=== PATIENT | male | born 1930 | race Caucasian/White ===

== ENCOUNTER 2018-11-05 13:59 | Inpatient (IN) | payer OTHER ==
[2018-11-05] MEDS ORDERED: PIPERACILLIN/TAZOB 4.5 GM 4.5 GM in DEXTROSE 5%-WATER - 100 ML IVPB ONE (14:35)
[2018-11-05] MEDS ORDERED: VANCOMYCIN 1,000 MG in DEXTROSE 5%-WATER - 250 ML IVPB ONE (14:35)
[2018-11-05] MEDS ORDERED: ACETAMINOPHEN 1000 MG/100 ML VIAL (NON FORMULARY) IVPB ONE (14:37)
[2018-11-05] MEDS ORDERED: ACETAMINOPHEN INJECTION 100 ML IVPB ONE (14:43)
[2018-11-05] MEDS ORDERED: PIPERACILLIN/TAZOB 4.5 GM 4.5 GM/100 ML BAG IVPB ONE (14:43)
[2018-11-05] MEDS ORDERED: SODIUM CHLORIDE 1,000 ML IV STA (14:43)
[2018-11-05] MEDS ORDERED: VANCOMYCIN 1 GRAM (PRE-DOCKED) 1,000 MG/250 ML BAG IVPB ONE (14:44)
--- NOTE | 2018-11-05 15:02 | PDOC ---
History of Present Illness - General Chief Complaint: SIRS, Suspected/Possible Stated Complaint: FEVER Time Seen by Provider: 11/05/18 14:33 History Source: Family (son) - History of Present Illness Initial Comments: 11/05/18 16:43 Beny Smalls is a 88yM w PMHx COPD CHF HTN afib on eliquis, trach and PEG tube presenting w AB distension. Per pt, last month, pt was admitted for urosepsis, had hospital complications of MRSA infection around trach. Discharged yesterday. Son noted AB distension yesterday. No fever, SOB, diarrhea /constipation Past History - Past Medical History Allergies/Adverse Reactions: Allergies Allergy/AdvReac Type Severity Reaction Status Date / Time No Known Allergies Allergy Verified 11/05/18 14:35 Home Medications: Ambulatory Orders Acetaminophen [Tylenol] 650 mg GT QID PRN 11/05/18 Albuterol 2.5/Ipratropium 0.5 [Duoneb -] 1 neb IH QID 11/05/18 Amantadine Oral Solution [Symmetrel Oral Solution -] 100 mg GT BID 11/05/18 Amiodarone HCl [Cordarone -] 200 mg GT DAILY 11/05/18 Apixaban [Eliquis -] 5 mg GT BID 11/05/18 Ascorbic Acid 500 mg GT DAILY 11/05/18 Carbidopa/Levodopa 25/250 [Sinemet 25/250 -] 2 each PO TID 11/05/18 Docusate Liquid [Colace Liquid -] 100 mg GT DAILY 11/05/18 Famotidine 20 mg GT DAILY 11/05/18 Furosemide [Lasix -] 40 mg GT DAILY 11/05/18 Homatropine HBr 5% Ophth Soln [Isopto Homatropine] 1 drop OD QID 11/05/18 Latanoprost 0.005% Eye Drops [Xalatan 0.005% Eye Drops -] 1 drop OU HS 11/05/18 Metoprolol Tartrate [Lopressor -] 50 mg GT BID 11/05/18 Multivitamin [Multiple Vitamins] 15 ml GT DAILY 11/05/18 Polyethylene Glycol 3350 [Miralax (For Bowel Prep) -] 17 gm GT DAILY 11/05/18 Tobramycin/Dexamethasone [Tobradex Eye Drops] 1 drop OU BID 11/05/18 Zinc Sulfate [Zinc-220] 220 mg GT DAILY 11/05/18 Cardiac Disorders: Yes (afib) COPD: Yes CHF: Yes GI Disorders: Yes (gerd) HTN: Yes Other medical history: RESP FAILURE TRACH PARKINSON - Suicide/Smoking/Psychosocial Hx Smoking History: Smoker current status UNK Have you smoked in the past 12 months: No Information on smoking cessation initiated: No Hx Alcohol Use: No Drug/Substance Use Hx: No Review of Systems - Review of Systems Able to Perform ROS?: No (pt non verbal) *Physical Exam - Vital Signs Last Vital Signs Temp Pulse Resp BP Pulse Ox 102.3 F H 114 H 30 H 162/89 93 L 11/05/18 14:28 11/05/18 14:28 11/05/18 14:28 11/05/18 14:28 11/05/18 14:28 - Physical Exam General Appearance: Yes: Nourished, Appropriately Dressed, Mild Distress HEENT: positive: EOMI, RICO. negative: Pale Conjunctivae, Scleral Icterus (R), Scleral Icterus (L), Nasal Congestion Respiratory/Chest: positive: Normal Breath Sounds, Rhonchi (RLL), Other (trach - non erythematous). negative: Chest Tender, Lungs Clear (coarse breath sounds bilateral), Respiratory Distress, Accessory Muscle Use, Rales, Stridor, Wheezing Cardiovascular: positive: Regular Rhythm, S1, S2, Tachycardia. negative: Edema , Murmur Gastrointestinal/Abdominal: positive: Normal Bowel Sounds, Soft, Distended. negative: Guarding, Rebound Integumentary: positive: Diaphoresis, Rash (petechial rash franco upper extremities ), Ecchymosis (L hand) Neurologic: positive: Respond to painful stimul. negative: Fully Oriented ED Treatment Course - LABORATORY CBC & Chemistry Diagram: 11/05/18 14:37 11/05/18 14:45 - RADIOLOGY Radiology Studies Ordered: Category Date Time Status ABDOMEN FLAT-LATERAL [RAD] Stat Radiology 11/05/18 14:55 Ordered Medical Decision Making - Medical Decision Making 11/05/18 15:00 AB XR, sepsis labs VBG pH 7.49 CO2 34 Given vanc, zosyn, 1L NS AB XR shows distended bowel loops - mesenteric ischemia vs SBO, no gross pneumoperitoneum noted NG placed w 300mL suctioned CXR showed bibasilar infiltrates w R effusion CT AB show dilated proximal jejunal loops concerning for bowel obstruction. No evidence of mesenteric ischemia EKG shows a fib w RVR HR 120. HR 90-110 after AB given Cr 1.5 - FRANCE, lactate 2.8, BNP 19,000, trop 0.07, ALP 190, WBC 12, INR 2.7 on anticoagulant UA 3+ leuk 3+ blood concerning for possible UTI Beny Smalls is a 88yM w PMHx COPD CHF HTN a fib on eliquis, trach and PEG tube presenting w AB distension. On admission, elevated temp 102, HR 120, RR 30. Placed on vent for hypoxia. CT AB show dilated proximal jejunal loops concerning for bowel obstruction, no evidence of mesenteric ischemia. Pt has distended AB, distended bowel loops on AB XR supporting SBO. No gross pneumoperitoneum noted on XR lowering concern for GI perforation. NG placed w 300mL suctioned. Has sepsis (admission temp 102, tachy 120, WBC 12, lactate 2.8) w UTI (+leuk on UA) and FRANCE (Cr 1.5) Has pneumonia w CXR showing bibasilar infiltrates w R effusion. Given vanc, zosyn, 1L NS EKG showed a fib w RVR HR 120 on admission. HR slowed down to 90-110 after antibiotics given Confirmed DNR Admitted to ICU Dr Whalen for SBO, sepsis w FRANCE and possible UTI, afib w rvr, and pneumonia on vent Consulted Dr Redd surgeon, advised conservative mgmt for SBO no surgery *DC/Admit/Observation/Transfer Diagnosis at time of Disposition: FRANCE (acute kidney injury), Atrial fibrillation with RVR Sepsis Qualifiers: Sepsis type: sepsis due to unspecified organism Sepsis acute organ dysfunction status: with acute organ dysfunction Severe sepsis acute organ dysfunction type : acute renal failure Acute renal failure type: unspecified Severe sepsis shock status: without septic shock Qualified Code(s): A41.9 - Sepsis, unspecified organism UTI (urinary tract infection) Qualifiers: Urinary tract infection type: site unspecified Hematuria presence: without hematuria Qualified Code(s): N39.0 - Urinary tract infection, site not specified Pneumonia Qualifiers: Pneumonia type: due to unspecified organism Laterality: right Lung location: lower lobe of lung Qualified Code(s): J18.1 - Lobar pneumonia, unspecified organism - Discharge Dispostion Condition at time of disposition: Good - Referrals Referrals: Juanjose Guadarrama MD [Primary Care Provider] - - Patient Instructions - Post Discharge Activity
[2018-11-05 15:03] LABS: BASO % 0.1 % (0-2.0); EOS % 0.1 % (0-4.5); HEMATOCRIT 30.9 % (35.4-49); LYMPH % 2.1 % (8-40); MCHC 32.3 g/dl (32.0-35.9); MEAN CELL VOLUME 89.8 fl (80-96); MEAN PLT VOLUME 8.1 fl (7.5-11.1); MONO % 5.6 % (3.8-10.2); NEUT % 92.1 % (42.8-82.8); PLATELET COUNT 384 K/MM3 (134-434); RBC 3.44 M/mm3 (4.00-5.60)
[2018-11-05 15:04] LABS: VENOUS PC02 34.4 mmHg (38-52); VENOUS PH 7.49 (7.31-7.41); VENOUS PO2 54.9 mmHg (28-48)
[2018-11-05 15:13] LABS: INR 2.71 (0.83-1.09); PROTHROMBIN TIME (PATIENT) 32.3 SEC (9.7-13.0)
[2018-11-05 15:16] LABS: ACTIVATED PTT 36.7 SECONDS (25.2-36.5)
[2018-11-05 15:30] LABS: ALBUMIN 2.4 g/dl (3.4-5.0); BILIRUBIN,TOTAL 1.7 mg/dL (0.2-1); BLOOD UREA NITROGEN 47.1 mg/dL (7-18); CREATININE 1.5 mg/dL (0.55-1.3); POTASSIUM 4.5 mmol/L (3.5-5.1); TOT PROT 7.1 g/dl (6.4-8.2)
[2018-11-05 15:34] LABS: EPI CELLS 1.5 /HPF (0-5/HPF); HYALINE CASTS 75 /lpf (0-8); URINE APPEARANCE TURBID; URINE BILIRUBIN 1+ (NEGATIVE); URINE COLOR DK YELLOW; URINE GLUCOSE (UA) NEGATIVE (NEGATIVE); URINE KETONE TRACE (NEGATIVE); URINE LEUK ESTERASE 3+ (NEGATIVE); URINE NITRITE NEGATIVE (NEGATIVE); URINE PROTEIN 1+ (NEGATIVE); URINE WBC 161 /hpf (0-5)
[2018-11-05 15:43] LABS: URINE BACTERIA 7 /hpf (NEGATIVE); URINE RBC 103.1 /hpf (0-4); YEAST PRESENT (NEGATIVE)
[2018-11-05 15:46] LABS: ANISOCYTOSIS 2+; MACROCYTOSIS 0; OVALOCYTE 1+; PLATELET ESTIMATE NORMAL; TEAR DROP CELLS 1+
[2018-11-05] MEDS ORDERED: AZITHROMYCIN IVPB 500 MG in DEXTROSE 5%-WATER - 250 ML IVPB ONE (16:40)
[2018-11-05] MEDS ORDERED: AZITHROMYCIN IVPB 500 MG/250 ML BAG IVPB ONE (18:21)
--- NOTE | 2018-11-05 18:41 | PDOC ---
Documentation entered by Juan Jose Don SCRIBE, acting as scribe for Mary Anne Roberts MD. Mary Anne Roberts MD: This documentation has been prepared by the Arian rainey Elijah, SCRIBE, under my direction and personally reviewed by me in its entirety. I confirm that the documentation accurately reflects all work, treatment, procedures, and medical decision making performed by me. Attending Attestation - Resident Resident Name: Conrado Pennington - ED Attending Attestation I have performed the following: I have examined & evaluated the patient, The case was reviewed & discussed with the resident, I agree w/resident's findings & plan, Exceptions are as noted - HPI HPI: 11/05/18 15:31 Patient is an 88 year old male with a significant past medical history of trach/ PEG, AFIB on AC, COPD, CHF, and HTN who presents to the ED with a fever and abdominal distention. As per son at bedside, patient was admitted a month ago for urosepsis to LTAC, [facility] where he was trached and PEGed. He was discharged to rehab but readmitted to [facility], where he was found to have a MRSA infection around his trach site. Patient was discharged yesterday from this admission in improved condition but today, he was noted by son to have increased bloating around the abdomen prompting the visit to the ED. History from patient is limited due to clinical condition Allergies: LAUREN PCP: Dr. Guadarrama - Physicial Exam PE: 11/05/18 15:37 GENERAL: Awake, alert, in mild respiratory acute distress with audible gurgling which resolved after NGT placement EYES: EOMI, sclera anicteric, conjunctiva clear ENT: Oropharynx clear without exudates. Moist mucosa.NGT in place with yellow fluid in tubing NECK: trach in place with no erythema or discharge LUNGS: +crackles/rales to L lung base, +mildly increased WOB HEART: Regular rate and rhythm, normal S1 and S2, no murmurs, rubs or gallops ABDOMEN: No focal ttp, +distended, diminished bowel sounds. No guarding, no rebound. No masses : rectal temp 102.3, brown stool in vault, no bleeding EXTREMITIES: Normal range of motion, mild trace symmetric edema. No clubbing or cyanosis. No cords, erythema, or tenderness NEUROLOGICAL: Cranial nerves II through XII intact SKIN: Warm, Dry, normal turgor, no rashes or lesions noted - Medical Decision Making 11/05/18 15:23 88yo M with MMP presents to the ED with respitory distress, fever, abd distention Clincial picture concerning for SBO causing aspiration, as such NGT was place on arrival Vitals also c/f sepsis, thus sepsis w/u initiated revealing of lung infiltrate and UTI Pt was covered with Vanc/Zosyn on arrival for empiric coverage Later azithro was added for atypical coverage in light of L sided infiltrate CTAP pending 11/05/18 18:23 CTAP was obtained which revealed SBO Case discussed with Dr. Redd who will see pt ICU resident currently evaluating pt Hospitalist has been paged for admission 11/05/18 18:48 ICU team requests ABG for dispo to ICU vs tele Pt admitted to ICU Heart Score/ECG Review #1 11/05/18 18:22 Twelve-lead EKG was performed and reviewed by me. Atrial fibrillation with rapid 21. Normal axis. Very wavy baseline but no obvious ST elevations
--- NOTE | 2018-11-05 19:05 | CONSULT ---
Consultation: REQUESTING PROVIDER: Dr. Garcia CONSULT REQUEST: We have been asked to medically evaluate this patient for pneumonia and small bowel obstruction. HISTORY OF PRESENT ILLNESS: Beny Smalls is an 88 year old male with a past medical history Parkinson' s disease, COPD, CHF, HTN, afib on Eliquis, remote history of prostate CA, respiratory failure with tracheostomy and PEG tube who presented to the ED when son noted a distended abdomen. Patient was recently in [facility] for sepsis secondary to UTI and was recently hospitalized at [facility] for complications related to MRSA. Patient was noted by the son to have abdominal distension yesterday. Of note, patient is able to converse normally, follow commands, and is able ambulate with assistance at home. Has been on Sinemet for many years and started on amantadine within the last several months. In the ED, the patient had an abdominal x-ray which showed distended bowel loops concerning for SBO. An NG tube was placed and 300cc of gastric fluid was removed with no noted blood. Chest x-ray was performed and showed a possible RLL PNA. CT abdomen showing dilated proximal jejunal bowel loops concerning for obstruction with no evidence of mesenteric ischemia. ED Course notable for: 1) Tmax of 102.3, WBC 12.0, lactic acid 2.8-->2.3 2) Abdominal x-ray, chest x-ray, abdominal CT as above 3) Given Vancomycin, Zosyn, NS 1L, Ofirmev REVIEW OF SYSTEMS: Unable to assess due to patient's lethargic condition PHYSICAL EXAMINATION Vital Signs - 24 hr 11/05/18 11/05/18 11/05/18 14:28 16:27 16:34 Temperature 102.3 F H Pulse Rate 114 H Pulse Rate [ 121 H Apical] Respiratory 30 H 29 H 24 H Rate Blood Pressure 162/89 Blood Pressure 145/92 [Right Arm] O2 Sat by Pulse 93 L 100 Oximetry (%) 11/05/18 17:57 Temperature 98 F Pulse Rate Pulse Rate [ 112 H Apical] Respiratory 27 H Rate Blood Pressure Blood Pressure 118/79 [Right Arm] O2 Sat by Pulse 100 Oximetry (%) GENERAL: Lethargic, opens eyes, does not track. Unresponsive to voice or basic commands. EYES: Pupils equal, round 2mm, sluggish to light, sclera anicteric, conjunctiva clear. No lid lag. NECK: Trach in place LUNGS: Coarse breath sounds bilaterally, mechanical breath sounds. No wheezing or crackles noted. HEART: Irregular rate and rhythm, normal S1 and S2 with no noted murmurs ABDOMEN: Distended, tympanic abdomen, soft, no guarding, no rigidity. EXTREMITIES: 2+ pulses, warm, well-perfused. No calf tenderness. No peripheral edema. NEUROLOGICAL: No blink to threat response, spontaneous movements bilaterally upper and lower extremities, striatal toes bilaterally. SKIN: Cool extremities, diffuse bruising noted. Multiple sacral ulcer in various stages 1-3 noted. Laboratory Results - last 24 hr 11/05/18 11/05/18 11/05/18 14:20 14:37 14:40 WBC 12.0 H RBC 3.44 L Hgb 10.0 L Hct 30.9 L MCV 89.8 MCH 29.0 MCHC 32.3 RDW 23.0 H Plt Count 384 MPV 8.1 Absolute Neuts (auto) 11.1 H Neutrophils % 92.1 H Neutrophils % (Manual) 86.6 H Band Neutrophils % 5.1 Lymphocytes % 2.1 L Lymphocytes % (Manual) 3.1 L Monocytes % 5.6 Monocytes % (Manual) 3 L Eosinophils % 0.1 Eosinophils % (Manual) 0.0 Basophils % 0.1 Basophils % (Manual) 0.0 Myelocytes % (Man) 0 Promyelocytes % (Man) 0 Blast Cells % (Manual) 0 Nucleated RBC % 0 Metamyelocytes 0 Hypochromia 0 Platelet Estimate Normal Platelet Comment Present Polychromasia 2+ Poikilocytosis 1+ Anisocytosis 2+ Microcytosis 1+ Macrocytosis 0 Spherocytes 1+ Tear Drop Cells 1+ Ovalocytes 1+ Acanthocytes (Spur) 1+ PT with INR INR PTT (Actin FS) VBG pH 7.49 H POC VBG pCO2 34.4 L POC VBG pO2 54.9 H VBG HCO3 26.1 VBG O2 Sat (Stacey) 86.9 H VBG Base Excess 3.6 H Sodium Potassium Chloride Carbon Dioxide Anion Gap BUN Creatinine Est GFR (CKD-EPI)AfAm Est GFR (CKD-EPI)NonAf Random Glucose Lactic Acid 2.8 H* Calcium Total Bilirubin AST ALT Alkaline Phosphatase Troponin I B-Natriuretic Peptide Total Protein Albumin Urine Color Urine Appearance Urine pH Ur Specific Mccarr Urine Protein Urine Glucose (UA) Urine Ketones Urine Blood Urine Nitrite Urine Bilirubin Urine Urobilinogen Ur Leukocyte Esterase Urine WBC (Auto) Urine RBC (Auto) Urine Casts (Auto) U Pathogenic Cast Auto U Epithel Cells (Auto) Urine Bacteria (Auto) Urine Yeast (Auto) 11/05/18 11/05/18 11/05/18 14:45 14:45 14:45 WBC RBC Hgb Hct MCV MCH MCHC RDW Plt Count MPV Absolute Neuts (auto) Neutrophils % Neutrophils % (Manual) Band Neutrophils % Lymphocytes % Lymphocytes % (Manual) Monocytes % Monocytes % (Manual) Eosinophils % Eosinophils % (Manual) Basophils % Basophils % (Manual) Myelocytes % (Man) Promyelocytes % (Man) Blast Cells % (Manual) Nucleated RBC % Metamyelocytes Hypochromia Platelet Estimate Platelet Comment Polychromasia Poikilocytosis Anisocytosis Microcytosis Macrocytosis Spherocytes Tear Drop Cells Ovalocytes Acanthocytes (Spur) PT with INR 32.30 H INR 2.71 H PTT (Actin FS) 36.7 H VBG pH POC VBG pCO2 POC VBG pO2 VBG HCO3 VBG O2 Sat (Stacey) VBG Base Excess Sodium 141 Potassium 4.5 Chloride 102 Carbon Dioxide 26 Anion Gap 13 BUN 47.1 H Creatinine 1.5 H Est GFR (CKD-EPI)AfAm 47.49 Est GFR (CKD-EPI)NonAf 40.98 Random Glucose 129 H Lactic Acid Calcium 9.0 Total Bilirubin 1.7 H AST 13 L ALT 14 Alkaline Phosphatase 191 H Troponin I 0.07 H B-Natriuretic Peptide 51212.0 H Total Protein 7.1 Albumin 2.4 L Urine Color Urine Appearance Urine pH Ur Specific Mccarr Urine Protein Urine Glucose (UA) Urine Ketones Urine Blood Urine Nitrite Urine Bilirubin Urine Urobilinogen Ur Leukocyte Esterase Urine WBC (Auto) Urine RBC (Auto) Urine Casts (Auto) U Pathogenic Cast Auto U Epithel Cells (Auto) Urine Bacteria (Auto) Urine Yeast (Auto) 11/05/18 15:00 WBC RBC Hgb Hct MCV MCH MCHC RDW Plt Count MPV Absolute Neuts (auto) Neutrophils % Neutrophils % (Manual) Band Neutrophils % Lymphocytes % Lymphocytes % (Manual) Monocytes % Monocytes % (Manual) Eosinophils % Eosinophils % (Manual) Basophils % Basophils % (Manual) Myelocytes % (Man) Promyelocytes % (Man) Blast Cells % (Manual) Nucleated RBC % Metamyelocytes Hypochromia Platelet Estimate Platelet Comment Polychromasia Poikilocytosis Anisocytosis Microcytosis Macrocytosis Spherocytes Tear Drop Cells Ovalocytes Acanthocytes (Spur) PT with INR INR PTT (Actin FS) VBG pH POC VBG pCO2 POC VBG pO2 VBG HCO3 VBG O2 Sat (Stacey) VBG Base Excess Sodium Potassium Chloride Carbon Dioxide Anion Gap BUN Creatinine Est GFR (CKD-EPI)AfAm Est GFR (CKD-EPI)NonAf Random Glucose Lactic Acid Calcium Total Bilirubin AST ALT Alkaline Phosphatase Troponin I B-Natriuretic Peptide Total Protein Albumin Urine Color Dk yellow Urine Appearance Turbid Urine pH 5.0 Ur Specific Mccarr 1.018 Urine Protein 1+ H Urine Glucose (UA) Negative Urine Ketones Trace H Urine Blood 3+ H Urine Nitrite Negative Urine Bilirubin 1+ H Urine Urobilinogen 1.0 Ur Leukocyte Esterase 3+ H Urine WBC (Auto) 161 Urine RBC (Auto) 103.1 Urine Casts (Auto) 75 U Pathogenic Cast Auto Granular cast U Epithel Cells (Auto) 1.5 Urine Bacteria (Auto) 7 Urine Yeast (Auto) Present ASSESSMENT/PLAN: Beny Smalls is an 88 year old male with a past medical history Parkinson' s disease, COPD, CHF, HTN, afib on Eliquis, respiratory failure with tracheostomy and PEG tube admitted for an SBO and possible PNA. Small bowel obstruction Sepsis RLL PNA UTI Parkinson's disease COPD CHF Afib HTN s/p Tracheostomy s/p PEG NEUROLOGIC - lethargic - likely any acute changes due to SBO, UTI, PNA causing toxic encephalopathy - hold home Sinemet - hold home amantadine - watch closely for dopamine withdrawal symptoms, hyperperexia, NMS like symptoms CARDIOLOGY - multiple runs of afib with RVR on monitor in ED - hold home Eliquis, restart when patient able to take oral meds - hold home amiodarone - hold metoprolol - hold home Lasix - Lovenox 110mg bid renally dosed through pharmacy - BNP elevated 16836, unclear of history - troponin 0.07, trend to peak, likely Type II CO in setting of sepsis - echo ordered - continuous cardiac monitoring, watch for RVR - I+Os RESPIRATORY - vent settings Rate 12, TV 450, O2 50, PEEP 5 - currently satting well - continue to monitor O2 sats - ABG showing respiratory alkalosis - repeat ABG in the morning - continue Duoneb RENAL - CRE 1.5, unclear of baseline - continue hydration in setting of likely infection - monitor renal function and renal output GASTROINTESTINAL - Abd x-ray and CT indicative of SBO - Dr. Redd consulted, recommends no surgery, conservative management - confirm with Dr. Redd about giving medications through G-tube - continue NG tube drainage - aspiration precautions INFECTIOUS DISEASE - CXR shows possible RLL - given Zosyn, Vancomycin, Azithromycin - continue vancomycin due to history of MRSA - continue Zosyn in setting of possible PNA - UA showing 3+ LE, WBC 161, bacteria 7, Zosyn to cover for UTI bacterial infection - lactic acid downtrending 2.8-->2.3-->1.9 - blood and urine cultures pending - continue to monitor WBC count, fevers - ID consulted OPTHALMOLOGIC - continue home eye drops HEMATOLOGY - WBC elevated from likely infection and SBO - continue to trend MUSCULOSKELETAL - apply silver sulfadiazine to wounds F/E/N - NS at 75cc/hr - continue to monitor electrolytes and replete as necessary - NPO PROPHYLAXIS - Lovenox 110mg bid renally dosed through pharmacy CODE - DNR as per son, awaiting paperwork DISPO - will monitor the patient in the ICU Thank you for this consultative opportunity. VARGHESE ESQUEDA DO - PGY-1 INTERNAL MEDICINE Visit type - Emergency Visit Emergency Visit: Yes ED Registration Date: 11/05/18 Care time: The patient presented to the Emergency Department on the above date and was hospitalized for further evaluation of their emergent condition. - New Patient This patient is new to me today: Yes Date on this admission: 11/06/18 - Critical Care Critical Care patient: Yes Total Critical Care Time (in minutes): 35 Critical Care Statement: The care of this patient involved high complexity decision making to prevent further life threatening deterioration of the patient 's condition and/or to evaluate & treat vital organ system(s) failure or risk of failure.
[2018-11-05 20:26] LABS: ARTERIAL BLD GAS O2 SATURATION 99.3 % (95-98); ARTERIAL BLOOD GAS BASE EXCESS 4.5 meq/l (-2-2); ARTERIAL BLOOD GAS PCO2 34.7 mmHg (35-45); ARTERIAL BLOOD GAS pH 7.51 (7.35-7.45); CARBOXYHEMOGLOBIN 1.6 % (0-2)
[2018-11-05 20:43] LABS: ARTERIAL BLOOD GAS PO2 141 mmHg (80-100)
--- NOTE | 2018-11-05 21:22 | HP ---
CHIEF COMPLAINT: abdominal distention PCP: HISTORY OF PRESENT ILLNESS: 88 y/o male with PMH of Parkinson's, COPD, CHF, HTN, afib (on eliquis) respiratory failure with trach and PEG tube, remote history of prostate ca around 15-20 years ago, presented to the ED with worsening abdominal distention since yesterday. as per patients son and the ED staff, patient was recently at [facility] for sepsis 2/2 UTI (was there starting the end of August where he was intubated and placed in their ICU for 3 weeks where the trach and peg were subsequently placed) and he was discharged to [place] halfway. About 11 days ago again urinary issues took place, in addition to what seemed to be an infectious process around his trach and he was sent sent to [facility] and then was discharged yesterday to [facility]. 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 His mental status was at baseline yesterday- he was following commands, trying to speak very alert and awake. The son as well as his daughter and the [facility] home staf noticed that his fathers abdomen was looking more distended today unclear when patient's last bowel movement was, the son said that about 6 days ago he had some vomiting had monte and they did not feed him for a day or so, otherwise, he is usnure in regards to his bowel movements. ER course was notable for: (1)initial vitals: t 102.3, Hr 103, patient was in afib with RVR on arrival (2)wbc 12, Cr 1.5, lactic acid 2.8-->2.3, Tbilli 1.7, Alk Phos 191, BNP 18.981 UA 3+ blood, 3+ leuk esterase, wbc 161 trop 0.07 (3)CXR showing bibasilar infiltrates w R effusion, CT ab/pelvis- dilated proximal jejunal loops probable bowel obstruction w/ mild to moderate gasric distention (4) given vanc/zosyn/azithro NS Recent Travel: denies PAST MEDICAL HISTORY: see above PAST SURGICAL HISTORY: Social History: Smoking:denies Alcohol:denies Drugs: denies Family History:N/A Allergies No Known Allergies Allergy (Verified 11/05/18 14:35) HOME MEDICATIONS: Home Medications Medication Instructions Recorded Acetaminophen [Tylenol] 650 mg GT QID PRN 11/05/18 Albuterol 2.5/Ipratropium 0.5 1 neb IH QID 11/05/18 [Duoneb -] Amantadine Oral Solution 100 mg GT BID 11/05/18 [Symmetrel Oral Solution -] Amiodarone HCl [Cordarone -] 200 mg GT DAILY 11/05/18 Apixaban [Eliquis -] 5 mg GT BID 11/05/18 Ascorbic Acid 500 mg GT DAILY 11/05/18 Carbidopa/Levodopa 25/250 [Sinemet 2 each PO TID 11/05/18 25/250 -] Docusate Liquid [Colace Liquid -] 100 mg GT DAILY 11/05/18 Famotidine 20 mg GT DAILY 11/05/18 Furosemide [Lasix -] 40 mg GT DAILY 11/05/18 Homatropine HBr 5% Ophth Soln 1 drop OD QID 11/05/18 [Isopto Homatropine] Latanoprost 0.005% Eye Drops 1 drop OU HS 11/05/18 [Xalatan 0.005% Eye Drops -] Metoprolol Tartrate [Lopressor -] 50 mg GT BID 11/05/18 Multivitamin [Multiple Vitamins] 15 ml GT DAILY 11/05/18 Polyethylene Glycol 3350 [Miralax 17 gm GT DAILY 11/05/18 (For Bowel Prep) -] Tobramycin/Dexamethasone [Tobradex 1 drop OU BID 11/05/18 Eye Drops] Zinc Sulfate [Zinc-220] 220 mg GT DAILY 11/05/18 REVIEW OF SYSTEMS(UNABLE TO OBTAIN as patient is trach and vented) CONSTITUTIONAL: Absent: fever, chills, diaphoresis, generalized weakness, malaise, loss of appetite, weight change HEENT: Absent: rhinorrhea, nasal congestion, throat pain, throat swelling, difficulty swallowing, mouth swelling, ear pain, eye pain, visual changes CARDIOVASCULAR: Absent: chest pain, syncope, palpitations, irregular heart rate, lightheadedness , peripheral edema RESPIRATORY: Absent: cough, shortness of breath, dyspnea with exertion, orthopnea, wheezing, stridor, hemoptysis GASTROINTESTINAL: Absent: abdominal pain, abdominal distension, nausea, vomiting, diarrhea, constipation, melena, hematochezia GENITOURINARY: Absent: dysuria, frequency, urgency, hesitancy, hematuria, flank pain, genital pain MUSCULOSKELETAL: Absent: myalgia, arthralgia, joint swelling, back pain, neck pain SKIN: Absent: rash, itching, pallor HEMATOLOGIC/IMMUNOLOGIC: Absent: easy bleeding, easy bruising, lymphadenopathy, frequent infections ENDOCRINE: Absent: unexplained weight gain, unexplained weight loss, heat intolerance, cold intolerance NEUROLOGIC: Absent: headache, focal weakness or paresthesias, dizziness, unsteady gait, seizure, mental status changes, bladder or bowel incontinence PSYCHIATRIC: Absent: anxiety, depression, suicidal or homicidal ideation, hallucinations. PHYSICAL EXAMINATION Vital Signs - 24 hr 11/05/18 11/05/18 11/05/18 14:28 16:27 16:34 Temperature 102.3 F H Pulse Rate 114 H Pulse Rate [ 121 H Apical] Respiratory 30 H 29 H 24 H Rate Blood Pressure 162/89 Blood Pressure 145/92 [Right Arm] O2 Sat by Pulse 93 L 100 Oximetry (%) 11/05/18 11/05/18 17:57 18:55 Temperature 98 F Pulse Rate Pulse Rate [ 112 H 103 H Apical] Respiratory 27 H 26 H Rate Blood Pressure Blood Pressure 118/79 111/67 [Right Arm] O2 Sat by Pulse 100 100 Oximetry (%) GENERAL: lethargic but arousable, opens eyes- does not follow commands or respond to name; slightly diaphoretic EYES: PEERLA; EOMI; no scleral icterus NECK: no JVD; no lmyphadenopathy; trach in place with slight surrounding erythema LUNGS:coarse breath sounds B/L; no wheezes/rales HEART: irregularly irregular, tachycardic S1 and S2 without murmur, rub or gallop. ABDOMEN: Soft, distended, hypoactive bowel sounds, no wincing upon palpation. EXTREMITIES: warm; well-perfused no clubbing/cyanosis or edema NEUROLOGICAL: lethargic yet arousable . SKIN: Warm, dry, normal turgor, no rashes or lesions noted, normal capillary refill. Laboratory Results - last 24 hr 11/05/18 11/05/18 11/05/18 14:20 14:37 14:40 WBC 12.0 H RBC 3.44 L Hgb 10.0 L Hct 30.9 L MCV 89.8 MCH 29.0 MCHC 32.3 RDW 23.0 H Plt Count 384 MPV 8.1 Absolute Neuts (auto) 11.1 H Neutrophils % 92.1 H Neutrophils % (Manual) 86.6 H Band Neutrophils % 5.1 Lymphocytes % 2.1 L Lymphocytes % (Manual) 3.1 L Monocytes % 5.6 Monocytes % (Manual) 3 L Eosinophils % 0.1 Eosinophils % (Manual) 0.0 Basophils % 0.1 Basophils % (Manual) 0.0 Myelocytes % (Man) 0 Promyelocytes % (Man) 0 Blast Cells % (Manual) 0 Nucleated RBC % 0 Metamyelocytes 0 Hypochromia 0 Platelet Estimate Normal Platelet Comment Present Polychromasia 2+ Poikilocytosis 1+ Anisocytosis 2+ Microcytosis 1+ Macrocytosis 0 Spherocytes 1+ Tear Drop Cells 1+ Ovalocytes 1+ Acanthocytes (Spur) 1+ PT with INR INR PTT (Actin FS) Anticoagulation Therapy Puncture Site ABG pH ABG pCO2 at Pt Temp ABG pO2 at Pt Temp ABG HCO3 ABG O2 Sat (Measured) ABG O2 Content ABG Base Excess Santiago Test VBG pH 7.49 H POC VBG pCO2 34.4 L POC VBG pO2 54.9 H VBG HCO3 26.1 VBG O2 Sat (Stacey) 86.9 H VBG Base Excess 3.6 H Carboxyhemoglobin Methemoglobin O2 Delivery Device Oxygen Flow Rate Vent Mode Vent Rate Mechanical Rate PEEP Pressure Support Vent Sodium Potassium Chloride Carbon Dioxide Anion Gap BUN Creatinine Est GFR (CKD-EPI)AfAm Est GFR (CKD-EPI)NonAf Random Glucose Lactic Acid 2.8 H* Calcium Total Bilirubin AST ALT Alkaline Phosphatase Troponin I B-Natriuretic Peptide Total Protein Albumin Urine Color Urine Appearance Urine pH Ur Specific [place] Urine Protein Urine Glucose (UA) Urine Ketones Urine Blood Urine Nitrite Urine Bilirubin Urine Urobilinogen Ur Leukocyte Esterase Urine WBC (Auto) Urine RBC (Auto) Urine Casts (Auto) U Pathogenic Cast Auto U Epithel Cells (Auto) Urine Bacteria (Auto) Urine Yeast (Auto) 11/05/18 11/05/18 11/05/18 14:45 14:45 14:45 WBC RBC Hgb Hct MCV MCH MCHC RDW Plt Count MPV Absolute Neuts (auto) Neutrophils % Neutrophils % (Manual) Band Neutrophils % Lymphocytes % Lymphocytes % (Manual) Monocytes % Monocytes % (Manual) Eosinophils % Eosinophils % (Manual) Basophils % Basophils % (Manual) Myelocytes % (Man) Promyelocytes % (Man) Blast Cells % (Manual) Nucleated RBC % Metamyelocytes Hypochromia Platelet Estimate Platelet Comment Polychromasia Poikilocytosis Anisocytosis Microcytosis Macrocytosis Spherocytes Tear Drop Cells Ovalocytes Acanthocytes (Spur) PT with INR 32.30 H INR 2.71 H PTT (Actin FS) 36.7 H Anticoagulation Therapy Puncture Site ABG pH ABG pCO2 at Pt Temp ABG pO2 at Pt Temp ABG HCO3 ABG O2 Sat (Measured) ABG O2 Content ABG Base Excess Santiago Test VBG pH POC VBG pCO2 POC VBG pO2 VBG HCO3 VBG O2 Sat (Stacey) VBG Base Excess Carboxyhemoglobin Methemoglobin O2 Delivery Device Oxygen Flow Rate Vent Mode Vent Rate Mechanical Rate PEEP Pressure Support Vent Sodium 141 Potassium 4.5 Chloride 102 Carbon Dioxide 26 Anion Gap 13 BUN 47.1 H Creatinine 1.5 H Est GFR (CKD-EPI)AfAm 47.49 Est GFR (CKD-EPI)NonAf 40.98 Random Glucose 129 H Lactic Acid Calcium 9.0 Total Bilirubin 1.7 H AST 13 L ALT 14 Alkaline Phosphatase 191 H Troponin I 0.07 H B-Natriuretic Peptide 84371.0 H Total Protein 7.1 Albumin 2.4 L Urine Color Urine Appearance Urine pH Ur Specific [place] Urine Protein Urine Glucose (UA) Urine Ketones Urine Blood Urine Nitrite Urine Bilirubin Urine Urobilinogen Ur Leukocyte Esterase Urine WBC (Auto) Urine RBC (Auto) Urine Casts (Auto) U Pathogenic Cast Auto U Epithel Cells (Auto) Urine Bacteria (Auto) Urine Yeast (Auto) 11/05/18 11/05/18 11/05/18 15:00 18:11 20:05 WBC RBC Hgb Hct MCV MCH MCHC RDW Plt Count MPV Absolute Neuts (auto) Neutrophils % Neutrophils % (Manual) Band Neutrophils % Lymphocytes % Lymphocytes % (Manual) Monocytes % Monocytes % (Manual) Eosinophils % Eosinophils % (Manual) Basophils % Basophils % (Manual) Myelocytes % (Man) Promyelocytes % (Man) Blast Cells % (Manual) Nucleated RBC % Metamyelocytes Hypochromia Platelet Estimate Platelet Comment Polychromasia Poikilocytosis Anisocytosis Microcytosis Macrocytosis Spherocytes Tear Drop Cells Ovalocytes Acanthocytes (Spur) PT with INR INR PTT (Actin FS) Anticoagulation Therapy No Result Required. Puncture Site Right radial ABG pH 7.51 H ABG pCO2 at Pt Temp 34.7 L ABG pO2 at Pt Temp 141 H ABG HCO3 27.2 H ABG O2 Sat (Measured) 99.3 H ABG O2 Content No Result Required. ABG Base Excess 4.5 H Santiago Test No Result Required. VBG pH POC VBG pCO2 POC VBG pO2 VBG HCO3 VBG O2 Sat (Stacey) VBG Base Excess Carboxyhemoglobin 1.6 Methemoglobin < 1.0 O2 Delivery Device Mech vent Oxygen Flow Rate 50% Vent Mode Alc Vent Rate 12 Mechanical Rate Yes PEEP 5.0 Pressure Support Vent 450 Sodium Potassium Chloride Carbon Dioxide Anion Gap BUN Creatinine Est GFR (CKD-EPI)AfAm Est GFR (CKD-EPI)NonAf Random Glucose Lactic Acid 2.3 H* Calcium Total Bilirubin AST ALT Alkaline Phosphatase Troponin I B-Natriuretic Peptide Total Protein Albumin Urine Color Dk yellow Urine Appearance Turbid Urine pH 5.0 Ur Specific [place] 1.018 Urine Protein 1+ H Urine Glucose (UA) Negative Urine Ketones Trace H Urine Blood 3+ H Urine Nitrite Negative Urine Bilirubin 1+ H Urine Urobilinogen 1.0 Ur Leukocyte Esterase 3+ H Urine WBC (Auto) 161 Urine RBC (Auto) 103.1 Urine Casts (Auto) 75 U Pathogenic Cast Auto Granular cast U Epithel Cells (Auto) 1.5 Urine Bacteria (Auto) 7 Urine Yeast (Auto) Present ASSESSMENT/PLAN: 88 y/o male with PMH of Parkinson's, COPD, CHF, HTN, afib (on eliquis) respiratory failure with trach and PEG tube presented to the ED with worsening abdominal distention since yesterday found to have an SBO on CT scan in addition to bibasilar infiltrates . #SBO patient found to have SBO on CT scan -dr. ordoñez called; no surgery to be had will manage conservatively -NGT placed with immediate drainage of 300 of bilious material -NPO -IV fluids NS @75 -LA 2.8 down to 2.3 -received vanc/zosyn/azithro -will trend lactic acid # UTI unclear if patient is having symtoms currently -will c/w abx (vanc/zosyn) until urine cx are back -ID consult #Afib c/w eliquis; amiodarone,; monitor hemodynamics #HTN c/w lopressor -monitor hemodynamics #CHF patients BNP was 18.891 on arrival unknown what patients baseline is; will obtain records c/w lasix echo [place] patients Cr is 1.5 on arrival;unknown what patients baseline is -likely elevated 2/2 infection/hypovolemia -will hydrate and monitor # COPD will c/w duoenbs -patient curretly on vent -monitor respiratory status; maintain sp02 88-92% #Parkinsons c/w sinemet F/E/N ns @75 monitor electrolytes npo dvt ppx; eliquis DNR Problem List - Problem (1) [place] (acute kidney injury) Code(s): N17.9 - ACUTE KIDNEY FAILURE, UNSPECIFIED (2) Atrial fibrillation with RVR Code(s): I48.91 - UNSPECIFIED ATRIAL FIBRILLATION (3) Pneumonia Code(s): J18.9 - PNEUMONIA, UNSPECIFIED ORGANISM Qualifiers: Pneumonia type: due to unspecified organism Laterality: right Lung location: lower lobe of lung Qualified Code(s): J18.1 - Lobar pneumonia, unspecified organism (4) Sepsis Code(s): A41.9 - SEPSIS, UNSPECIFIED ORGANISM Qualifiers: Sepsis type: sepsis due to unspecified organism Sepsis acute organ dysfunction status: with acute organ dysfunction Severe sepsis acute organ dysfunction type: acute renal failure Acute renal failure type: unspecified Severe sepsis shock status: without septic shock Qualified Code(s): A41.9 - Sepsis, unspecified organism; R65.20 - Severe sepsis without septic shock; N17.9 - Acute kidney failure, unspecified (5) UTI (urinary tract infection) Code(s): N39.0 - URINARY TRACT INFECTION, SITE NOT SPECIFIED Qualifiers: Urinary tract infection type: site unspecified Hematuria presence: without hematuria Qualified Code(s): N39.0 - Urinary tract infection, site not specified Visit type - Emergency Visit Emergency Visit: Yes ED Registration Date: 11/05/18 Care time: The patient presented to the Emergency Department on the above date and was hospitalized for further evaluation of their emergent condition. - New Patient This patient is new to me today: Yes Date on this admission: 11/06/18 - Critical Care Critical Care patient: Yes Total Critical Care Time (in minutes): 35 Critical Care Statement: The care of this patient involved high complexity decision making to prevent further life threatening deterioration of the patient 's condition and/or to evaluate & treat vital organ system(s) failure or risk of failure. ATTENDING PHYSICIAN STATEMENT I saw and evaluated the patient. I reviewed the resident's note and discussed the case with the resident. I agree with the resident's findings and plan as documented. SUBJECTIVE: OBJECTIVE: ASSESSMENT AND PLAN:
[2018-11-05] MEDS: SODIUM CHLORIDE 1,000 ML IV SCH (21:43)
[2018-11-05] MEDS ORDERED: PIPERACILLIN/TAZOB 3.375 GM 3.375 GM in DEXTROSE 5%-WATER - 50 ML IVPB SCH (22:15)
[2018-11-05] MEDS ORDERED: PIPERACILLIN/TAZOB 3.375 GM 3.375 GM/50 ML BAG IVPB ONE (23:17)
[2018-11-05] MEDS ORDERED: CARBIDOPA/LEVODOPA 25/250 TABLET (FP) ONE (23:17)
[2018-11-05] MEDS: PIPERACILLIN/TAZOB 3.375 GM 3.375 GM in DEXTROSE 5%-WATER - 50 ML IVPB SCH (23:20)
[2018-11-05] MEDS: CARBIDOPA/LEVODOPA 25/250 TABLET (FP) GT SCH (23:20)
[2018-11-06] MEDS ORDERED: HEPARIN NA (PORCINE) 5,000 UNITS/ML 1ML VIAL SQ SCH (02:00)
--- NOTE | 2018-11-06 04:38 | PN ---
Teaching Attending Note Name of Resident: Ana María Bee ATTENDING PHYSICIAN STATEMENT I saw and evaluated the patient. I reviewed the resident's note and discussed the case with the resident. I agree with the resident's findings and plan as documented. Seen and examined; please refer to resident note for further historical information. Gianna, this is a 88 y/o male with a PMH Parkinson's disease, COPD, CHF, HTN, afib on Eliquis, remote history of prostate CA, respiratory failure with tracheostomy and PEG tube presenting with abdominal distention found to have a likely SBO and to be in afib with RVR; there is question of cystitis vs. colonization. Surgery has been consulted by the ER and recommended conservative management with NGT. Had prolonged hospitalization due to septic shock at [place] resulting in trach/PEG and was DCd to [place] and presented back to [facility] with tracheitis and waas then sent to [facility]. He now presents to [facility]. I personally called [facility] for records and spoke to ER provider who was unable to find notes for him in their system; we will try with medical records. He cannot provide any history. He was taken to the ICU for further workup and monitoring. VS, labs, imaging reviewed NAD, AA and tracking, resting in bed on trach to vent RRR s1/2 no mgr NC AT EOMI PERRLA Slightly distended, mild tympany, reduced BS but present NGT in Not agitated, responds to pain EKG reviewed; telemetry ordered Echo pending CXR reviewed ASSESSMENT AND PLAN: Patient presents with abdominal distention as well as ? cystitis; he is trach/ PEG dependent and was recently at [facility] for tracheitis Possible SBO Afib with RVR on eliquis Elevated bilirubin/Alk phos with ?dilation of CBD Acute cystitis vs. colonization w/ chronic galarza S/P Trach, PEG Hx Parkinsons R-pleural effusion Elevated BNP Recent tracheitis Hx COPD Hx CHF (LVEF unknown, records pending) Hx Prostate Cancer Admitting to ICU with surgical consult; NPO. Convert eliquis to lovenox and amio to IV (will discuss dosing with pharmacy). Broad spectrum coverage with abx and ID consut; obtaining prior micro from OSH. Consider active cystitis vs. colonization given galarza. Followup cultures, consider additional reactivity with leukocytosis. Vent support per ICU; appreciate their input. May need MRCP with potentially obstructive pattern on LFTs so will FU RUQ US and GI consultation. Appreciate subspecialist input in the ongoing management of this patient. Given his elevated BNP, it is definitively elevated but he is not having reduced volumes, etc. with vent. Will check echo and obtain old records, monitor fluid status and resp status carefully.
[2018-11-06] MEDS ORDERED: PIPERACILLIN/TAZOBACTAM 3.375 GM VIAL IVPB ONE ×3 (06:22→22:17)
[2018-11-06] MEDS ORDERED: DEXTROSE 5%-WATER - 50 ML IVPB ONE ×3 (06:23→22:17)
[2018-11-06] MEDS: PIPERACILLIN/TAZOB 3.375 GM 3.375 GM in DEXTROSE 5%-WATER - 50 ML IVPB SCH ×3 (06:28→22:19)
[2018-11-06 07:12] LABS: BASO % 0.4 % (0-2.0); EOS % 0.4 % (0-4.5); HEMATOCRIT 27.2 % (35.4-49); HEMOGLOBIN 8.9 GM/dL (11.7-16.9); MCH 29.9 pg (25.7-33.7); MCHC 32.8 g/dl (32.0-35.9); MEAN CELL VOLUME 91.1 fl (80-96); NEUT % 81.2 % (42.8-82.8); RBC 2.98 M/mm3 (4.00-5.60); RDW 23.3 % (11.9-15.9); WHITE BLOOD COUNT 9.5 K/mm3 (4.0-10.0)
[2018-11-06 07:22] LABS: ALK PHOS 144 U/L (45-117); ANION GAP 8 MMOL/L (8-16); BILIRUBIN,TOTAL 1.6 mg/dL (0.2-1); BLOOD UREA NITROGEN 47.3 mg/dL (7-18); CALCIUM 8.2 mg/dL (8.5-10.1); CHLORIDE 101 mmol/L (98-107); CO2 32 mmol/L (21-32); CREATININE 1.3 mg/dL (0.55-1.3); GLUCOSE,RANDOM 93 mg/dL (74-106); MAGNESIUM 2.5 mg/dL (1.8-2.4); PHOSPHOROUS 4.1 mg/dL (2.5-4.9); POTASSIUM 3.8 mmol/L (3.5-5.1); SGOT/AST 13 U/L (15-37); SODIUM 142 mmol/L (136-145); TOT PROT 5.8 g/dl (6.4-8.2)
[2018-11-06 07:36] LABS: INR 2.22 (0.83-1.09); PROTHROMBIN TIME (PATIENT) 26.4 SEC (9.7-13.0)
[2018-11-06 07:49] LABS: SGPT/ALT < 6 U/L (13-61)
[2018-11-06] MEDS: ALBUTEROL SO4 2.5/IPRATROPIUM 0.5 INH SOL 3 ML VIAL.NEB. NEB SCH ×4 (08:00→22:05)
[2018-11-06 08:10] LABS: ACTIVATED PTT 37.4 SECONDS (25.2-36.5)
[2018-11-06 08:16] LABS: PLATELET COUNT 269 K/MM3 (134-434)
--- NOTE | 2018-11-06 08:53 | CON.GI ---
Consult Consult Specialty:: Gastroenterology - History of Present Illness History of Present Illness: Patient seen in the ICU Patient is on ventilator, medical records reviewed. this is a 88 y/o male with a PMH Parkinson's disease, COPD, CHF, HTN, afib on Eliquis, remote history of prostate CA, respiratory failure with tracheostomy and PEG tube presenting with abdominal distention found to have a likely SBO and to be in afib with RVR; there is question of cystitis vs. colonization. Surgery has been consulted by the ER and recommended conservative management with NGT. Had prolonged hospitalization due to septic shock at [place] resulting in trach/PEG and was DCd to [place] and presented back to [facility] with tracheitis and waas then sent to [facility]. He now presents to [facility]. I personally called [facility] for records and spoke to ER provider who was unable to find notes for him in their system; we will try with medical records. He cannot provide any history. He was taken to the ICU for further workup and monitoring. I was asked to see the patient because of mildly elevated liver enzymes and mildly dilated by CT. The GB has no sludge and stones. NGT was inserted with negligible return. - Alcohol/Substance Use Hx Alcohol Use: No - Smoking History Smoking history: Smoker current status UNK Have you smoked in the past 12 months: No Home Medications - Allergies Allergies/Adverse Reactions: Allergies Allergy/AdvReac Type Severity Reaction Status Date / Time No Known Allergies Allergy Verified 11/05/18 14:35 - Home Medications Home Medications: Ambulatory Orders Acetaminophen [Tylenol] 650 mg GT QID PRN 11/05/18 Albuterol 2.5/Ipratropium 0.5 [Duoneb -] 1 neb IH QID 11/05/18 Amantadine Oral Solution [Symmetrel Oral Solution -] 100 mg GT BID 11/05/18 Amiodarone HCl [Cordarone -] 200 mg GT DAILY 11/05/18 Apixaban [Eliquis -] 5 mg GT BID 11/05/18 Ascorbic Acid 500 mg GT DAILY 11/05/18 Carbidopa/Levodopa 25/250 [Sinemet 25/250 -] 2 each PO TID 11/05/18 Docusate Liquid [Colace Liquid -] 100 mg GT DAILY 11/05/18 Famotidine 20 mg GT DAILY 11/05/18 Furosemide [Lasix -] 40 mg GT DAILY 11/05/18 Homatropine HBr 5% Ophth Soln [Isopto Homatropine] 1 drop OD QID 11/05/18 Latanoprost 0.005% Eye Drops [Xalatan 0.005% Eye Drops -] 1 drop OU HS 11/05/18 Metoprolol Tartrate [Lopressor -] 50 mg GT BID 11/05/18 Multivitamin [Multiple Vitamins] 15 ml GT DAILY 11/05/18 Polyethylene Glycol 3350 [Miralax (For Bowel Prep) -] 17 gm GT DAILY 11/05/18 Tobramycin/Dexamethasone [Tobradex Eye Drops] 1 drop OU BID 11/05/18 Zinc Sulfate [Zinc-220] 220 mg GT DAILY 11/05/18 Physical Exam-GI Vital Signs: Vital Signs Temperature 98.6 F 11/06/18 06:00 Pulse Rate 105 H 11/06/18 06:00 Respiratory Rate 24 H 11/06/18 06:25 Blood Pressure 116/82 11/06/18 06:00 O2 Sat by Pulse Oximetry (%) 100 11/06/18 04:27 Constitutional: Yes: Other HENT: Yes: Normocephalic Neck: Yes: Trachea Midline Cardiovascular: Yes: Regular Rate and Rhythm Respiratory: Yes: CTA Bilaterally ...Palpate: Yes: Soft. No: Firm/Rigid, Guarding, Hepatomegaly, Mass, Pulsatile Mass, Splenomegaly, Tenderness Labs: CBC, BMP 11/06/18 05:30 11/06/18 05:30 INR, PTT INR 2.22 (0.83-1.09) H 11/06/18 05:30 Problem List - Problems (1) Ileus Code(s): K56.7 - ILEUS, UNSPECIFIED (2) Dilated cbd, acquired Assessment/Plan: associated with mild elevation of LFTS R> will await US if CBD dilated will need MRCP to r/o CBD stone serial LFTS Code(s): K83.8 - OTHER SPECIFIED DISEASES OF BILIARY TRACT
--- NOTE | 2018-11-06 09:56 | PN ---
Progress Note (short form) - Note Progress Note: ID consult dictated imp/reccd 88 yo man pmh recent urosepsis JENNY Rosas- trach/ped, then rehab, then [facility] for MRSA trach infection admitted 11/04 to SNF noted to have abdominal distention and sent to ED 11/[address] scan abd/pelvis- ?SBO with question of Left lower lob infiltrate galarza in place he is alert no abdominal pain on exam fever SBO possible LLL infiltrate unstageable sacral/buttock ulcers- wound care evaluation chronic respiratory failure history of mrsa f/u cultures vanco/zosyn urinary antigens for legionella f/u abd us results gi/surgery f/u apparently galarza not changed in ED- unclear of significance of UA/urine culture Problem List - Problems (1) Fever Code(s): R50.9 - FEVER, UNSPECIFIED (2) SBO (small bowel obstruction) Code(s): K56.609 - UNSP INTESTNL OBST, UNSP TO PARTIAL VERSUS COMPLETE OBST (3) Pneumonia Code(s): J18.9 - PNEUMONIA, UNSPECIFIED ORGANISM Qualifiers: Pneumonia type: due to unspecified organism Laterality: right Lung location: lower lobe of lung Qualified Code(s): J18.1 - Lobar pneumonia, unspecified organism (4) Chronic respiratory failure Code(s): J96.10 - CHRONIC RESPIRATORY FAILURE, UNSP W HYPOXIA OR HYPERCAPNIA (5) MRSA (methicillin resistant Staphylococcus aureus) colonization Code(s): Z22.322 - CARRIER OR SUSPECTED CARRIER OF METHICILLIN RESIS STAPH
[2018-11-06] MEDS ORDERED: SILVER SULFADIAZINE 1% TOP CREAM 400 GM JAR TP SCH (10:00)
[2018-11-06] MEDS: TOBRA 0.3%/DEXAMETH 0.1% OPHTHALMIC SUSP 2.5 ML BTL OU SCH ×2 (10:00→22:20)
[2018-11-06] MEDS ORDERED: AMIODARONE HCL 200 MG TABLET (FP) GT SCH (10:00)
[2018-11-06] MEDS: [UNRECOGNIZED DRUG - OTHER] OD SCH ×4 (10:00→22:20)
[2018-11-06] MEDS ORDERED: APIXABAN 5 MG TABLET PO SCH (10:00)
[2018-11-06] MEDS ORDERED: ENOXAPARIN NA (PORCINE) 100 MG/1 ML DISP.SYRIN SQ SCH (10:00)
[2018-11-06] MEDS ORDERED: AMIODARONE HCL 150 MG/3 ML VIAL IVPUSH SCH (10:00)
--- NOTE | 2018-11-06 10:39 | CONSULT ---
Consult - text type - Consultation Consultation Note: PULMONARY/CRITICAL CARE CONSULT: HPI: Briefly, an 88 y/o M w/Parkinson's, COPD, CHG, HTN, AF and chronic vent dependant respiratory failure following a prolonged hospitalization at [facility]. He is s/p trach and PEG, he is dependant on mechanical ventilation. He presented to the ED with abd distention and fever. He has history of UTIs and MRSA in the sputum. A CT A/P was done concerning for SBO. He also had elevated Lactate and LFTs. Surgery and GI were consulted. NGT was placed, he was started on empiric abx, and admitted to the ICU. Current Medications Albuterol/Ipratropium (Duoneb -) 1 amp NEB RQID [facility] Last Admin: 11/06/18 08:00 Dose: Not Given Amantadine HCl (Symmetrel Oral Solution -) 100 mg GT BID [facility] Amiodarone HCl (Cordarone -) 200 mg GT DAILY [facility] Amiodarone HCl (Cordarone Injection -) 100 mg IVPUSH DAILY [facility] Carbidopa/Levodopa (Sinemet 25/250 -) 2 each GT TID [facility] Last Admin: 11/05/18 23:20 Dose: 2 each Chlorhexidine Gluconate (Hibiclens For Decolonization -) 1 applic TP HS [facility] Enoxaparin Sodium (Lovenox -) 110 mg SQ BID [facility] Homatropine HBr (Isopto Homatropine 5% -) 1 drop OD QID [facility] Sodium Chloride (Normal Saline -) 1,000 mls @ 75 mls/hr IV ASDIR [facility] Last Admin: 11/05/18 21:43 Dose: 75 mls/hr Piperacillin Sod/Tazobactam (Sod 3.375 gm/ Dextrose) 50 mls @ 100 mls/hr IVPB Q8H-IV [facility]; Protocol Piperacillin Sod/Tazobactam (Sod 3.375 gm/ Dextrose) 50 mls @ 100 mls/hr IVPB Q8H [facility]; Protocol Stop: 11/06/18 14:59 Last Admin: 11/06/18 06:28 Dose: 100 mls/hr Latanoprost (Xalatan 0.005% Eye Drops -) 1 drop OU HS [facility] Mupirocin (Bactroban Ointment (For Decolonization) -) 1 applic NS BID [facility] Stop: 11/10/18 21:59 Silver Sulfadiazine (Silvadene -) 1 applic TP BID [facility] Tobramycin/Dexamethasone (Tobradex Ophthalmic Suspension -) 1 drop OU BID [facility] Vital Signs Temp 98.6 F 11/06/18 06:00 Pulse 102 H 11/06/18 08:00 Resp 22 H 11/06/18 08:00 BP 114/70 11/06/18 08:00 Pulse Ox 100 11/06/18 08:00 Intake & Output 11/05/18 11/06/18 11/06/18 18:59 06:59 18:59 Intake Total 196 Output Total 300 Balance -104 Weight 113.398 kg 36.696 kg Intake: IV 196 Normal Saline - 1,000 ml 196 @ 1000 mls/hr IV ASDIR [facility] Rx#:[id number] Output: Urine 300 Gal[place] 300 Other: Voiding Method Indwelling Catheter Indwelling Catheter Bowel Movement No Height 5 ft 8 in Body Mass Index (BMI) 38.0 Weight Measurement Method Built in [facility] Weight Measurement Method Estimated by Staff EXAM: gen: NAD, vented neuro: awake, alert, follows commands HEENT: NGT in place, trach, dry MM Lungs: clear Heart: irregular Ext: no edema Skin: unstageable sacral and L buttocks decub ulcer CBC, BMP 11/06/18 05:30 11/06/18 05:30 ASSESSMENT: -Chronic vent dependant respiratory failure -COPD -CHF -AF -SBO -Sepsis - likely GI source or UTI PLAN: -NGT to Int-LWS -NPO -Gentle IVF -Check abdominal u/s - if CBD dilation - MRCP -Cultures including sputum - also, change galarza and resend UA and Cx -Empiric abx per ID -Rate control -Anticoagulation for AF - will need to switch to UFH if procedures are planned -Continue Vent and nebs -GI PPx - protonix Thank you for this interesting consult Critically Ill - Critical Care time 45min Tim Burrows 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
[2018-11-06] MEDS ORDERED: PT OWN MED DRAWER 7, Y5N ONE ×3 (10:59→22:17)
[2018-11-06] MEDS ORDERED: AMIODARONE IN DEXTROSE,ISO-OSM 150 MG/100 ML BAG IVPB ONE (11:00)
--- NOTE | 2018-11-06 11:12 | CONS ---
DATE OF CONSULTATION: REQUESTING PHYSICIAN: Hospitalist Service. KNAPSACK SPRAYER: Fazal Cisneros M.D. DATE OF DICTATION: 11/06/2018 HISTORY OF PRESENT ILLNESS: This is an 88-year-old man recently hospitalized. The history is from the chart [facility] in [place] where he had urosepsis. He ultimately needed a tracheostomy and a PEG tube placement. He then went apparently to rehabilitation. From there he was readmitted to [facility] where he had a MRSA tracheostomy infection. He was just sent on the November 04 to [facility] and he was noted have abdominal distention and on November 05 he was sent to the ER. In the ER he was noted to have a fever on admission of 102.3. He had a CAT scan of his abdomen and pelvis done, which showed a possible small bowel obstruction with question of a left lower lobe infiltrate. He has a chronic Salguero in place as well. Patient is awake. He is alert, but he is unable to give any history. He did not have any pain on any exam. PAST MEDICAL HISTORY: His past medical history is notable for heart failure and pneumonia. He has an extra-pyramidal movement disorder, atrial fibrillation, GERD, chronic respiratory failure, chronic obstructive pulmonary disease, hypertension , Parkinson disease. PAST SURGICAL HISTORY: Surgical history is notable for tracheostomy and PEG, as well he has had a right hip replacement. SOCIAL HISTORY: Per the H&P there is no history of any cigarette, alcohol or substance use. FAMILY HISTORY: Not available. ALLERGIES: He has no known drug allergies. MEDICATIONS: At the time of transfer includes: 1. Amantadine. 2. Amiodarone. 3. Eliquis. 4. Famotidine. 5. Lasix. 6. Ipratropium. 7. Albuterol nebulizer solution. 8. Metoprolol. 9. Sinemet. 10. TobraDex eye drops. 11. Xalatan eye drops. 12. Isopto eye drops. 13. MiraLax. 14. Zinc sulfate. 15. Multivitamins. 16. Ascorbic acid. 17. Colace. 18. Santyl. 19. Silvadene. 20. Nystatin. 21. Bacitracin. REVIEW OF SYSTEMS: Notable for the fact that he has apparently noted abdominal distention. It is unclear when he last had a bowel movement. PHYSICAL EXAMINATION: General: On physical exam, he is awake and alert. Vitals: His current temperature is 98.6. T max was 102.3, pulse is 102; blood pressure 114/70, respiratory rate is 22. He is saturating 100%, FIO2 is 50%. HEENT: He is normocephalic. His eyes are anicteric. He has a tracheostomy. Lungs: His lungs have diminished breath sounds at both bases. Heart: His heart is tachycardic. Abdomen: His abdomen is soft; GT tube site is in place. He has no rebound, or guarding. Extremities: He has got edema. He has a Salguero in place that apparently is from the longterm. White count on admission was 12, repeat was 9.5, hemoglobin 8.9, platelets are 269. INR is 2.2. BUN is 47, creatinine is 1.3. LFTs are notable for a total bilirubin of 1.6, ALT is 6, alkaline phosphatase 144 and urinalysis has 3+ leukocytes with 161 white cells. CAT scan findings are as stated. Question of a possible small bowel obstruction. There is a question of a left lower lobe infiltrate. He has got a right hip replacement. He has no evidence of diverticulitis or appendicitis. Chest x-ray was done with question of bibasilar infiltrates with his atelectasis with a possible right pleural effusion. SUMMARY: In summary, this is an 88-year-old man with recent hospitalization, methicillin-resistant Staphylococcus aureus colonization, admitted with fever, abdominal distention, possible pneumonia. He was given vancomycin, Zosyn and Zithromax in the emergency room. I would suggest at this time that we continue the vancomycin and Zosyn. Would follow up the cultures that have been ordered. Sputum, urine and blood have been ordered. I would order a urine Legionella antigen as well. Apparently there is a question of a mild CBD duct dilatation and given his abnormal LFTs, ultrasound has been ordered as well. I would suggest at this time that we continue the vancomycin and Zosyn, check the urinary antigens, GI Surgery to follow up. Follow up ultrasound results. Apparently the Salguero was not changed in the ER, so it is unclear what the significance of the UA and urine culture are at this time. Further recommendations to follow. FAZAL CISNEROS M.D. [id number] MTDD
[2018-11-06] MEDS: PANTOPRAZOLE SODIUM 40 MG VIAL IVPUSH SCH (11:26)
[2018-11-06] MEDS: MUPIROCIN 2% TOPICAL OINTMENT FOR DECOLONIZATION NS SCH ×2 (11:28→22:10)
--- NOTE | 2018-11-06 12:26 | PN ---
Progress Note (short form) - Note Progress Note: alert Current Medications Generic Name Dose Route Start Last Admin Trade Name Negritoq PRN Reason Stop Dose Admin Albuterol/Ipratropium 1 amp 11/06/18 08:00 11/06/18 08:00 Duoneb - NEB Not Given RQID [facility] Amantadine HCl 100 mg 11/06/18 10:00 Symmetrel Oral Solution - GT BID [facility] Amiodarone HCl 200 mg 11/06/18 10:00 Cordarone - GT DAILY [facility] Amiodarone HCl 100 mg 11/06/18 10:00 Cordarone Injection - IVPUSH DAILY [facility] Carbidopa/Levodopa 2 each 11/05/18 22:45 11/05/18 23:20 Sinemet 25/250 - GT 2 each TID [facility] Administration Chlorhexidine Gluconate 1 applic 11/05/18 22:00 Hibiclens For Decolonization - TP HS [facility] Enoxaparin Sodium 110 mg 11/06/18 10:00 Lovenox - SQ BID [facility] Homatropine HBr 1 drop 11/06/18 10:00 Isopto Homatropine 5% - OD QID [facility] Sodium Chloride 1,000 mls @ 75 mls/hr 11/05/18 21:15 11/05/18 21:43 Normal Saline - IV 75 mls/hr ASDIR [facility] Administration Piperacillin Sod/Tazobactam 50 mls @ 100 mls/hr 11/05/18 22:15 Sod 3.375 gm/ Dextrose IVPB Q8H-IV [facility] Protocol Piperacillin Sod/Tazobactam 50 mls @ 100 mls/hr 11/05/18 22:30 11/06/18 06:28 Sod 3.375 gm/ Dextrose IVPB 11/06/18 14:59 100 mls/hr Q8H [facility] Administration Protocol Latanoprost 1 drop 11/06/18 22:00 Xalatan 0.005% Eye Drops - OU HS [facility] Mupirocin 1 applic 11/05/18 22:00 11/06/18 11:28 Bactroban Ointment (For Decolonization) - NS 11/10/18 21:59 1 tab.chew BID [facility] Administration Pantoprazole Sodium 40 mg 11/06/18 10:45 11/06/18 11:26 Protonix Iv IVPUSH 40 mg DAILY [facility] Administration Silver Sulfadiazine 1 applic 11/06/18 10:00 Silvadene - TP BID [facility] Tobramycin/Dexamethasone 1 drop 11/06/18 10:00 Tobradex Ophthalmic Suspension - OU BID [facility] Last Vital Signs Temp Pulse Resp BP Pulse Ox 98 F 102 H 24 H 156/87 100 11/06/18 10:00 11/06/18 10:00 11/06/18 10:00 11/06/18 10:00 11/06/18 08:00 Intake & Output 11/03/18 11/04/18 11/05/18 11/06/18 23:59 23:59 23:59 23:59 Intake Total 196 Output Total 300 Balance -104 Weight 250 lb 80 lb 14.4 oz General NAD, alert CV S1 S2 irregular and tachy Lungs CTA B/L anteriorly Abdomen soft slightly distended. NT hypoactive BS Extremities no pedal edema CBCD WBC 9.5 K/mm3 (4.0-10.0) 11/06/18 05:30 RBC 2.98 M/mm3 (4.00-5.60) L 11/06/18 05:30 Hgb 8.9 GM/dL (11.7-16.9) L 11/06/18 05:30 Hct 27.2 % (35.4-49) L 11/06/18 05:30 MCV 91.1 fl (80-96) 11/06/18 05:30 MCHC 32.8 g/dl (32.0-35.9) 11/06/18 05:30 RDW 23.3 % (11.9-15.9) H 11/06/18 05:30 Plt Count 269 K/MM3 (134-434) D 11/06/18 05:30 MPV 8.0 fl (7.5-11.1) 11/06/18 05:30 CMP Sodium 142 mmol/L (136-145) 11/06/18 05:30 Potassium 3.8 mmol/L (3.5-5.1) 11/06/18 05:30 Chloride 101 mmol/L (98-107) 11/06/18 05:30 Carbon Dioxide 32 mmol/L (21-32) 11/06/18 05:30 Anion Gap 8 MMOL/L (8-16) 11/06/18 05:30 BUN 47.3 mg/dL (7-18) H 11/06/18 05:30 Creatinine 1.3 mg/dL (0.55-1.3) 11/06/18 05:30 Random Glucose 93 mg/dL (74-106) 11/06/18 05:30 Calcium 8.2 mg/dL (8.5-10.1) L 11/06/18 05:30 Total Bilirubin 1.6 mg/dL (0.2-1) H 11/06/18 05:30 AST 13 U/L (15-37) L 11/06/18 05:30 ALT < 6 U/L (13-61) L 11/06/18 05:30 Alkaline Phosphatase 144 U/L (45-117) H 11/06/18 05:30 Total Protein 5.8 g/dl (6.4-8.2) L 11/06/18 05:30 Albumin 2.0 g/dl (3.4-5.0) L 11/06/18 05:30 CARDIAC ENZYMES Troponin I 0.05 ng/ml (0.00-0.05) 11/06/18 05:30 Microbiology 11/05/18 15:00 Urine - Urine - Catheterized Urine Culture - Preliminary A/P 88yo M with PMH parkinson, COPD, HTN, Afib, chronic respiratory failure s/p trach and PEG presented to the Er with fevers and abdominal distention and foudn to be septic due to PNA and SBO with dilated CBD as well 1. Sepsis due to PNA- Tm 102.3 with tachycardia. LA normalized. started on zosyn. cont IVF. ID on board. f/u Cx 2. SBO-some hypoactive BS. NPO, NGT to intermittent suction. pain control. surgery on board 3. Dilated CBD- seen on imaging. elevated bilirubin. MRCP ordered. GI onboard 4. Afib- rate not controlled. was on amio at home. will start metoprolol standing and prn to control HR. if remains uncontrolled can start amio ggt. start hep ggt until can take po 5. FR[place]- deu to sepsis and dehydration. hydrate, treat underlying infection. avoid nephrotoxic agents 6. unstageable buttock ulcer- visualized by RN not me 7. Tropinemia- due to demand from sepsis and tachycardia. peaked at 0.07 no need for ischemia eval here 8. Parkinon-hold oral agents at this time. re-start once able to take po 9. HTN- hold oral agents. re-start when able 10. chronic respiratory failure- s/p trach. vent management per ICU team 11. dsyphagia s/p PEG- hold TF at this time 12. DVT ppx- hep ggt 13. DNR 14. MICU monitoring Visit type - Emergency Visit Emergency Visit: Yes ED Registration Date: 11/05/18 Care time: The patient presented to the Emergency Department on the above date and was hospitalized for further evaluation of their emergent condition. - New Patient This patient is new to me today: Yes Date on this admission: 11/06/18 - Critical Care Critical Care patient: Yes Total Critical Care Time (in minutes): 40 Critical Care Statement: The care of this patient involved high complexity decision making to prevent further life threatening deterioration of the patient 's condition and/or to evaluate & treat vital organ system(s) failure or risk of failure. - Discharge Referral Referred to [facility] Med P.C.: No
[2018-11-06] MEDS ORDERED: HEPARIN NA (PORCINE) 5,000 UNITS/ML 1ML VIAL IVPUSH PRN ×2 (12:39)
[2018-11-06] MEDS ORDERED: METOPROLOL TARTRATE 5 MG/5 ML VIAL IVPUSH PRN ×2 (12:42→13:04)
[2018-11-06] MEDS ORDERED: VANCOMYCIN HCL 1,250 MG in DEXTROSE 5%-WATER - 250 ML IVPB SCH (14:00)
[2018-11-06] MEDS: HEPARIN INFUSION - 25,000 UNITS/500 ML INFUS.BAG IVPB SCH (14:33)
[2018-11-06] MEDS: METOPROLOL TARTRATE 5 MG/5 ML VIAL IVPUSH SCH ×2 (14:33→22:10)
[2018-11-06] MEDS: VANCOMYCIN HCL 1,250 MG in DEXTROSE 5%-WATER - 250 ML IVPB SCH (15:05)
[2018-11-06] MEDS: COLLAGENASE CLOSTRIDIUM HIST. 30 GRAMS TUBE TP SCH (15:06)
--- NOTE | 2018-11-06 16:03 | EKG ---
Test Reason : Blood Pressure : / mmHG Vent. Rate : 121 BPM Atrial Rate : 107 BPM P-R Int : 000 ms QRS Dur : 104 ms QT Int : 382 ms P-R-T Axes : 000 -21 256 degrees QTc Int : 542 ms ATRIAL FIBRILLATION WITH RAPID VENTRICULAR RESPONSE LOW VOLTAGE QRS MARKED ST ABNORMALITY, POSSIBLE INFERIOR SUBENDOCARDIAL INJURY ABNORMAL ECG NO PREVIOUS ECGS AVAILABLE CLINICAL CORRELATION IS RECOMMENDED Confirmed by GA COUGHLIN, YUSEF ([id number]) on 11/06/2018 4:03:11 PM Referred By: Confirmed By:YUSEF KOROMA MD
--- NOTE | 2018-11-06 17:21 | CONSULT ---
- Consultation REQUESTING PROVIDER: ER MD CONSULT REQUEST: We have been asked to surgically evaluate this patient for possible sbo PCP:Kimmie Cunningham HISTORY OF PRESENT ILLNESS: TUSHAR who is an 88 y/o male recently txed and released from 2 local hospitals where he was txed for urosepsis and underwent a trach and PEG and now presents for increasing abdominal distention a/t his son; he has # comorbid conditions. He has a recent h/o MRSA infection. PMHx: pulmonary disease/Parkinsons disease/CHF/ PSHx: PEG/trach Home Medications Medication Instructions Recorded Acetaminophen [Tylenol] 650 mg GT QID PRN 11/05/18 Albuterol 2.5/Ipratropium 0.5 1 neb IH QID 11/05/18 [Duoneb -] Amantadine Oral Solution 100 mg GT BID 11/05/18 [Symmetrel Oral Solution -] Amiodarone HCl [Cordarone -] 200 mg GT DAILY 11/05/18 Apixaban [Eliquis -] 5 mg GT BID 11/05/18 Ascorbic Acid 500 mg GT DAILY 11/05/18 Carbidopa/Levodopa 25/250 [Sinemet 2 each PO TID 11/05/18 25/250 -] Docusate Liquid [Colace Liquid -] 100 mg GT DAILY 11/05/18 Famotidine 20 mg GT DAILY 11/05/18 Furosemide [Lasix -] 40 mg GT DAILY 11/05/18 Homatropine HBr 5% Ophth Soln 1 drop OD QID 11/05/18 [Isopto Homatropine] Latanoprost 0.005% Eye Drops 1 drop OU HS 11/05/18 [Xalatan 0.005% Eye Drops -] Metoprolol Tartrate [Lopressor -] 50 mg GT BID 11/05/18 Multivitamin [Multiple Vitamins] 15 ml GT DAILY 11/05/18 Polyethylene Glycol 3350 [Miralax 17 gm GT DAILY 11/05/18 (For Bowel Prep) -] Tobramycin/Dexamethasone [Tobradex 1 drop OU BID 11/05/18 Eye Drops] Zinc Sulfate [Zinc-220] 220 mg GT DAILY 11/05/18 Allergies Allergy/AdvReac Type Severity Reaction Status Date / Time No Known Allergies Allergy Verified 11/05/18 14:35 REVIEW OF SYSTEMS:not obtainable from patient PHYSICAL EXAM: GENERAL: Awake, alert, and not fully oriented, in no acute distress; trached and vented in the ICU. HEAD: Normal with no signs of trauma. EYES: sclera anicteric, conjunctiva clear. NECK: Normal ROM, supple without lymphadenopathy, JVD, or masses.trach in place ABDOMEN: Soft, nontender, slightly distended, normoactive bowel sounds, no guarding, no rebound, no masses. No organomegaly. PEG in place MUSCULOSKELETAL: Normal ROM at all joints. No bony deformities or tenderness. No CVA tenderness. UPPER EXTREMITIES: 2+ pulses, warm, well-perfused. No cyanosis. Cap refill <2 seconds. No peripheral edema. LOWER EXTREMITIES: 2+ pulses, warm, well-perfused. No calf tenderness. No peripheral edema. NEUROLOGICAL: gait not observed. PSYCH: Cooperative. Good eye contact. Appropriate mood and affect. SKIN: Warm, dry, normal turgor, rashes and lesions are noted. Vital Signs Temperature 99 F 11/06/18 14:00 Pulse Rate 106 H 11/06/18 16:00 Respiratory Rate 20 11/06/18 16:36 Blood Pressure 133/77 11/06/18 16:00 O2 Sat by Pulse Oximetry (%) 100 11/06/18 08:00 Lab Results WBC 9.5 K/mm3 (4.0-10.0) 11/06/18 05:30 RBC 2.98 M/mm3 (4.00-5.60) L 11/06/18 05:30 Hgb 8.9 GM/dL (11.7-16.9) L 11/06/18 05:30 Hct 27.2 % (35.4-49) L 11/06/18 05:30 MCV 91.1 fl (80-96) 11/06/18 05:30 MCHC 32.8 g/dl (32.0-35.9) 11/06/18 05:30 RDW 23.3 % (11.9-15.9) H 11/06/18 05:30 Plt Count 269 K/MM3 (134-434) D 11/06/18 05:30 Sodium 142 mmol/L (136-145) 11/06/18 05:30 Potassium 3.8 mmol/L (3.5-5.1) 11/06/18 05:30 Chloride 101 mmol/L (98-107) 11/06/18 05:30 Carbon Dioxide 32 mmol/L (21-32) 11/06/18 05:30 Anion Gap 8 MMOL/L (8-16) 11/06/18 05:30 BUN 47.3 mg/dL (7-18) H 11/06/18 05:30 Creatinine 1.3 mg/dL (0.55-1.3) 11/06/18 05:30 Random Glucose 93 mg/dL (74-106) 11/06/18 05:30 Calcium 8.2 mg/dL (8.5-10.1) L 11/06/18 05:30 INR 2.22 (0.83-1.09) H 11/06/18 05:30 CT a/p reviewed IMP: ? sbo PLAN Suggest NPO/IVF/NGT; I personally placed a [place] sump and connected it tp low continuous suction where it should remain; serial abdominal exams and abdominal x rays should be done.; will f/u. Naun Redd MD FACS
[2018-11-06] MEDS: SODIUM CHLORIDE 1,000 ML IV SCH (18:22)
[2018-11-06] MEDS: CHLORHEXIDINE GLUCONATE 4% CLEANSER FOR DECOLONIZATION TP SCH ×2 (22:10→22:15)
[2018-11-06] MEDS: LATANOPROST 0.005% OPHTH SOLN 2.5ML BOTTLE OU SCH (22:20)
[2018-11-07] MEDS: METOPROLOL TARTRATE 5 MG/5 ML VIAL IVPUSH SCH ×4 (04:05→21:53)
[2018-11-07] MEDS ORDERED: PIPERACILLIN/TAZOBACTAM 3.375 GM VIAL IVPB ONE ×4 (04:07→21:45)
[2018-11-07] MEDS ORDERED: DEXTROSE 5%-WATER - 50 ML IVPB ONE ×4 (04:07→21:45)
[2018-11-07] MEDS: PIPERACILLIN/TAZOB 3.375 GM 3.375 GM in DEXTROSE 5%-WATER - 50 ML IVPB SCH ×4 (04:10→21:53)
[2018-11-07 06:07] LABS: HEMOGLOBIN 8.5 GM/dL (11.7-16.9); MCHC 31.6 g/dl (32.0-35.9); MEAN CELL VOLUME 91.8 fl (80-96); MEAN PLT VOLUME 8.1 fl (7.5-11.1); PLATELET COUNT 285 K/MM3 (134-434); RBC 2.94 M/mm3 (4.00-5.60); RDW 23.1 % (11.9-15.9)
[2018-11-07 06:26] LABS: ADD RBC MORPHOLOGY YES
--- NOTE | 2018-11-07 06:30 | PN ---
Progress Note (short form) - Note Progress Note: PULMONARY/CRITICAL CARE PROGRESS NOTE: SUBJECTIVE: Pt seen and examined in the ICU 300ml NGT output No BM yet Abd soft OBJECTIVE: Current Medications Albuterol/Ipratropium (Duoneb -) 1 amp NEB RQID [facility] Last Admin: 11/06/18 22:05 Dose: 1 amp Amantadine HCl (Symmetrel Oral Solution -) 100 mg GT BID [facility] Carbidopa/Levodopa (Sinemet 25/250 -) 2 each GT TID [facility] Last Admin: 11/05/18 23:20 Dose: 2 each Chlorhexidine Gluconate (Hibiclens For Decolonization -) 1 applic TP HS [facility] Last Admin: 11/06/18 22:15 Dose: 1 applic Collagenase (Santyl -) 1 applic TP DAILY [facility]; Protocol Last Admin: 11/06/18 15:06 Dose: 1 drop Heparin Sodium (Porcine) (Heparin -) 1,000 unit IVPUSH PRN PRN PRN Reason: Heparin Heparin Sodium (Porcine) (Heparin -) 5,000 unit IVPUSH PRN PRN PRN Reason: Heparin Last Admin: 11/06/18 14:34 Dose: 5,000 unit Homatropine HBr (Isopto Homatropine 5% -) 1 drop OD QID [facility] Last Admin: 11/06/18 22:20 Dose: 1 drop Sodium Chloride (Normal Saline -) 1,000 mls @ 75 mls/hr IV ASDIR [facility] Last Admin: 11/06/18 18:22 Dose: 75 mls/hr Heparin Sodium/Dextrose (Heparin Infusion -) 25,000 units in 500 mls @ 20 mls/ hr IVPB TITR [facility]; Protocol Last Admin: 11/06/18 14:33 Dose: 1,000 units/hr, 20 mls/hr Vancomycin HCl 1,250 mg/ (Dextrose) 250 mls @ 166.667 mls/hr IVPB Q24H [facility]; Protocol Last Admin: 11/06/18 15:05 Dose: 166.667 mls/hr Piperacillin Sod/Tazobactam (Sod 3.375 gm/ Dextrose) 50 mls @ 100 mls/hr IVPB Q6H-IV [facility]; Protocol Last Admin: 11/07/18 04:10 Dose: 100 mls/hr Latanoprost (Xalatan 0.005% Eye Drops -) 1 drop OU HS [facility] Last Admin: 11/06/18 22:20 Dose: 1 drop Metoprolol Tartrate (Lopressor Injection -) 5 mg IVPUSH Q4H PRN PRN Reason: TACHYCARDIA Metoprolol Tartrate (Lopressor Injection -) 5 mg IVPUSH Q6H [facility] Last Admin: 11/07/18 04:05 Dose: Not Given Mupirocin (Bactroban Ointment (For Decolonization) -) 1 applic NS BID [facility] Stop: 11/10/18 21:59 Last Admin: 11/06/18 22:10 Dose: 1 applic Pantoprazole Sodium (Protonix Iv) 40 mg IVPUSH DAILY [facility] Last Admin: 11/06/18 11:26 Dose: 40 mg Tobramycin/Dexamethasone (Tobradex Ophthalmic Suspension -) 1 drop OU BID [facility] Last Admin: 11/06/18 22:20 Dose: 1 drop Vital Signs Temp 97.7 F 11/06/18 22:00 Pulse 108 H 11/06/18 22:13 Resp 19 11/07/18 03:39 BP 129/91 11/06/18 22:13 Pulse Ox 100 11/06/18 22:32 Intake & Output 11/06/18 11/06/18 11/07/18 06:59 18:59 06:59 Intake Total 196 1260 1116 Output Total 300 800 200 Balance -104 460 916 Weight 80.694 kg 80.286 kg 84.8 kg Intake: IV 760 436 0020 HEPARIN INFUSION - 25,000 60 216 units In 500 ml @ 1,000 UNITS/HR 20 mls/hr IVPB TITR [facility] Rx#:[id number] Normal Saline - 1,000 ml 196 @ 1000 mls/hr IV ASDIR STA Rx#:[id number] Normal Saline - 1,000 ml 900 900 @ 75 mls/hr IV ASDIR [facility] Rx#:[id number] IVPB 300 Output: Gastric Drainage 200 Urine 300 600 200 Salguero 300 600 200 Other: Voiding Method Indwelling Catheter Indwelling Catheter Indwelling Catheter Bowel Movement No No Height 5 ft 8 in Body Mass Index (BMI) 26.9 Weight Measurement Method Built in [facility] Built in [facility] EXAM: gen: NAD, vented neuro: awake, alert, follows commands HEENT: NGT in place, trach, dry MM Lungs: clear Heart: irregular Abd: soft, non-tender Ext: no edema Skin: unstageable sacral and L buttocks decub ulcer CBC, BMP 11/07/18 05:30 ASSESSMENT: -Chronic vent dependant respiratory failure -COPD -CHF -AF -SBO -Sepsis - likely GI source or UTI PLAN: -NGT to LWS -NPO -Gentle IVF -Check abdominal u/s - if CBD dilation - MRCP -Cultures -Empiric abx per ID -Rate control -Anticoagulation for AF -Continue Vent and nebs -GI PPx - protonix -Await return of bowel fxn Transfer to the floor Tim 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
[2018-11-07 07:10] LABS: BILIRUBIN,DIRECT 0.8 mg/dL (0.0-0.2); BILIRUBIN,TOTAL 1.4 mg/dL (0.2-1); BLOOD UREA NITROGEN 47.4 mg/dL (7-18); CALCIUM 8.6 mg/dL (8.5-10.1); CREATININE 1.3 mg/dL (0.55-1.3); MAGNESIUM 2.6 mg/dL (1.8-2.4); PHOSPHOROUS 4.6 mg/dL (2.5-4.9); POTASSIUM 3.6 mmol/L (3.5-5.1)
[2018-11-07] MEDS: ALBUTEROL SO4 2.5/IPRATROPIUM 0.5 INH SOL 3 ML VIAL.NEB. NEB SCH ×4 (08:32→20:37)
[2018-11-07] MEDS: PANTOPRAZOLE SODIUM 40 MG VIAL IVPUSH SCH (09:13)
[2018-11-07] MEDS: MUPIROCIN 2% TOPICAL OINTMENT FOR DECOLONIZATION NS SCH ×2 (09:14→21:53)
[2018-11-07] MEDS: SODIUM CHLORIDE 1,000 ML IV SCH (09:14)
[2018-11-07] MEDS: [UNRECOGNIZED DRUG - OTHER] OD SCH ×4 (09:15→21:54)
[2018-11-07] MEDS: COLLAGENASE CLOSTRIDIUM HIST. 30 GRAMS TUBE TP SCH (09:16)
[2018-11-07] MEDS: TOBRA 0.3%/DEXAMETH 0.1% OPHTHALMIC SUSP 2.5 ML BTL OU SCH ×2 (09:16→21:55)
--- NOTE | 2018-11-07 09:16 | PN ---
Progress Note (short form) - Note Progress Note: awake trach to vent Vital Signs Period Temp Pulse Resp BP Sys/Cope Pulse Ox Last 24 Hr 97.6 F-99 F 99-113 14-26 109-160/65-97 97-100 cor-rrr lungs decreased bs at bases abd soft, +GT ext no edema CBC, BMP 11/07/18 05:30 11/07/18 05:30 Microbiology 11/05/18 15:00 Urine - Urine - Catheterized Urine Culture - Final Yeast Like Organism 11/05/18 15:00 Blood - Peripheral Venous Blood Culture - Preliminary NO GROWTH OBTAINED AFTER 24 HOURS, INCUBATION TO CONTINUE FOR 4 DAYS. 11/05/18 14:30 Blood - Peripheral Venous Blood Culture - Preliminary NO GROWTH OBTAINED AFTER 24 HOURS, INCUBATION TO CONTINUE FOR 4 DAYS. Current Medications Albuterol/Ipratropium (Duoneb -) 1 amp NEB RQID [facility] Last Admin: 11/07/18 08:32 Dose: 1 amp Amantadine HCl (Symmetrel Oral Solution -) 100 mg GT BID [facility] Carbidopa/Levodopa (Sinemet 25/250 -) 2 each GT TID [facility] Last Admin: 11/05/18 23:20 Dose: 2 each Chlorhexidine Gluconate (Hibiclens For Decolonization -) 1 applic TP HS [facility] Last Admin: 11/06/18 22:15 Dose: 1 applic Collagenase (Santyl -) 1 applic TP DAILY [facility]; Protocol Last Admin: 11/06/18 15:06 Dose: 1 drop Heparin Sodium (Porcine) (Heparin -) 1,000 unit IVPUSH PRN PRN PRN Reason: Heparin Heparin Sodium (Porcine) (Heparin -) 5,000 unit IVPUSH PRN PRN PRN Reason: Heparin Last Admin: 11/06/18 14:34 Dose: 5,000 unit Homatropine HBr (Isopto Homatropine 5% -) 1 drop OD QID [facility] Last Admin: 11/06/18 22:20 Dose: 1 drop Sodium Chloride (Normal Saline -) 1,000 mls @ 75 mls/hr IV ASDIR [facility] Last Admin: 11/06/18 18:22 Dose: 75 mls/hr Heparin Sodium/Dextrose (Heparin Infusion -) 25,000 units in 500 mls @ 20 mls/ hr IVPB TITR [facility]; Protocol Last Admin: 11/06/18 14:33 Dose: 1,000 units/hr, 20 mls/hr Vancomycin HCl 1,250 mg/ (Dextrose) 250 mls @ 166.667 mls/hr IVPB Q24H [facility]; Protocol Last Admin: 11/06/18 15:05 Dose: 166.667 mls/hr Piperacillin Sod/Tazobactam (Sod 3.375 gm/ Dextrose) 50 mls @ 100 mls/hr IVPB Q6H-IV [facility]; Protocol Last Admin: 11/07/18 04:10 Dose: 100 mls/hr Latanoprost (Xalatan 0.005% Eye Drops -) 1 drop OU HS [facility] Last Admin: 11/06/18 22:20 Dose: 1 drop Metoprolol Tartrate (Lopressor Injection -) 5 mg IVPUSH Q4H PRN PRN Reason: TACHYCARDIA Metoprolol Tartrate (Lopressor Injection -) 5 mg IVPUSH Q6H [facility] Last Admin: 11/07/18 09:03 Dose: 5 mg Mupirocin (Bactroban Ointment (For Decolonization) -) 1 applic NS BID [facility] Stop: 11/10/18 21:59 Last Admin: 11/06/18 22:10 Dose: 1 applic Pantoprazole Sodium (Protonix Iv) 40 mg IVPUSH DAILY [facility] Last Admin: 11/06/18 11:26 Dose: 40 mg Tobramycin/Dexamethasone (Tobradex Ophthalmic Suspension -) 1 drop OU BID [facility] Last Admin: 11/06/18 22:20 Dose: 1 drop a/p fever resolved SBO possible LLL infiltrate unstageable sacral/buttock ulcers- wound care evaluation f/u cultures vanco/zosyn urinary antigens for legionella f/u abd us noted gi/surgery f/u apparently galarza not changed in ED- unclear of significance of UA/urine culture
[2018-11-07 10:44] LABS: ANISOCYTOSIS 0; MACROCYTOSIS 0; PLATELET ESTIMATE NORMAL; ROULEAU 3+
--- NOTE | 2018-11-07 11:36 | PN ---
Teaching Attending Note Name of Resident: Zoie So ATTENDING PHYSICIAN STATEMENT I saw and evaluated the patient. I reviewed the resident's note and discussed the case with the resident. I agree with the resident's findings and plan as documented. SUBJECTIVE:alert, resting comfortable OBJECTIVE: Last Vital Signs Temp Pulse Resp BP Pulse Ox 98.5 F 111 H 26 H 168/91 97 11/07/18 08:00 11/07/18 09:03 11/07/18 08:30 11/07/18 09:03 11/07/18 08:30 General NAD CV S2 S2 irregular, tachycardic lungs coarse breath sounds anteriorly Abdomen soft +distended, tympanic. no BS Extremities tremors at baseline ASSESSMENT AND PLAN: 88yo M with PMH parkinson, COPD, HTN, Afib, chronic respiratory failure s/p trach and PEG presented to the Er with fevers and abdominal distention and foudn to be septic due to PNA and SBO with dilated CBD as well 1. Sepsis due to PNA-Afebrill but remainstachycardia. LA normalized. on vanco and zosyn. check vanco trough prior to 4th dose. Sputum Cx with pending organism. cont IVF. ID on board. f/u Cx 2. SBO-soft NGT to suction. awaiting AXR and return of bowel function. cont NPO , NGT to intermittent suction. pain control. surgery on board 3. Dilated CBD- seen on imaging. elevated bilirubin. MRCP ordered. GI onboard 4. Afib- rate improved. cont metoprolol IV Q6H and prn. f remains uncontrolled can start amio ggt. on hep ggt 5. [place]- deu to sepsis and dehydration. hydrate, treat underlying infection. avoid nephrotoxic agents 6. unstageable buttock ulcer- visualized by RN not me 7. Tropinemia- due to demand from sepsis and tachycardia. peaked at 0.07 no need for ischemia eval here 8. Parkinon-hold oral agents at this time. re-start once able to take po 9. HTN- has been normotesnive. isolated elevated reading this AM. will monitor for now 10. chronic respiratory failure- s/p trach. vent dependent. management per ICU team 11. dsyphagia s/p PEG- hold TF at this time 12. DVT ppx- hep ggt 13. DNR 14. MICU monitoring. can transfer to [facility] for cardiac monitoring The care of this patient involved high complexity decision making to prevent further life threatening deterioration of the patient's condition and/or to evaluate & treat vital organ system(s) failure or risk of failure. 35 minutes
[2018-11-07] MEDS ORDERED: HYDROmorphone HCl 2 MG/ML VIAL IVPUSH ONE (12:43)
[2018-11-07] MEDS: HEPARIN INFUSION - 25,000 UNITS/500 ML INFUS.BAG IVPB SCH (12:57)
--- NOTE | 2018-11-07 13:04 | PN ---
Progress Note (short form) - Note Progress Note: Attending Surgeon Remains in ICU on vent More alert VSS AF abdo-soft; NT ? at baseline ? NGT minimal output IMP: resolving sbo PLAN: Continue present tx. abdominal imaging tomorrow. Naun Redd MD FACS
[2018-11-07] MEDS ORDERED: PT OWN MED DRAWER 7, Y5N ONE (13:35)
[2018-11-07] MEDS: VANCOMYCIN HCL 1,250 MG in DEXTROSE 5%-WATER - 250 ML IVPB SCH (13:46)
[2018-11-07] MEDS ORDERED: FUROSEMIDE 40 MG/4 ML INJECTABLE VIAL IVPUSH SCH ×2 (14:00→15:20)
[2018-11-07] MEDS ORDERED: FUROSEMIDE 40 MG/4 ML INJECTABLE VIAL IVPUSH ONE (15:20)
--- NOTE | 2018-11-07 16:15 | PN ---
Physical Exam: SUBJECTIVE: Patient seen and examined. Has not passed BM yet. Able to verbalize yes/no, 1 word responses. Denies CP/ nausea/ abd pain/ calf tenderness. OBJECTIVE: Vital Signs Period Temp Pulse Resp BP Sys/Cope Pulse Ox Last 24 Hr 97.6 F-98.5 F 99-113 14-28 109-168/65-97 97-100 GENERAL: The patient is awake, alert, unable to assess orientation. HEAD: NCAT EYES: PERRLA ENT: Oropharynx clear without exudates, moist mucous membranes. NECK: Trach in place; non-erythematous, C/D/I no signs of infection LUNGS: B/l LL coarse breath sounds present. HEART: Tachycardic. + systolic murmur present. ABDOMEN: Nontender. Diminished bowel sounds. Mildly distended. : Galarza in place. no hematuria EXTREMITIES: 2+ pulses b/l LE, no edema. Laboratory Results - last 24 hr 11/06/18 11/07/18 11/07/18 20:20 03:55 05:30 WBC 11.0 H RBC 2.94 L Hgb 8.5 L Hct 27.0 L MCV 91.8 MCH 29.0 MCHC 31.6 L RDW 23.1 H Plt Count 285 MPV 8.1 Absolute Neuts (auto) 9.4 H Neutrophils % No Result Required. Neutrophils % (Manual) 82.8 Band Neutrophils % 0.0 Lymphocytes % No Result Required. Lymphocytes % (Manual) 9.1 D Monocytes % (Manual) 6 D Eosinophils % (Manual) 2.0 D Basophils % (Manual) 0.0 Myelocytes % (Man) 0 Promyelocytes % (Man) 0 Blast Cells % (Manual) 0 Nucleated RBC % 0 Metamyelocytes 0 Hypochromia 0 Platelet Estimate Normal Polychromasia 0 Poikilocytosis 0 Anisocytosis 0 Microcytosis 0 Macrocytosis 0 Rouleaux 3+ PTT (Actin FS) 100.8 H 66.0 H Sodium Potassium Chloride Carbon Dioxide Anion Gap BUN Creatinine Est GFR (CKD-EPI)AfAm Est GFR (CKD-EPI)NonAf Random Glucose Calcium Phosphorus Magnesium Total Bilirubin Direct Bilirubin AST ALT Alkaline Phosphatase Total Protein Albumin 11/07/18 05:30 WBC RBC Hgb Hct MCV MCH MCHC RDW Plt Count MPV Absolute Neuts (auto) Neutrophils % Neutrophils % (Manual) Band Neutrophils % Lymphocytes % Lymphocytes % (Manual) Monocytes % (Manual) Eosinophils % (Manual) Basophils % (Manual) Myelocytes % (Man) Promyelocytes % (Man) Blast Cells % (Manual) Nucleated RBC % Metamyelocytes Hypochromia Platelet Estimate Polychromasia Poikilocytosis Anisocytosis Microcytosis Macrocytosis Rouleaux PTT (Actin FS) Sodium 142 Potassium 3.6 Chloride 103 Carbon Dioxide 29 Anion Gap 10 BUN 47.4 H Creatinine 1.3 Est GFR (CKD-EPI)AfAm 56.46 Est GFR (CKD-EPI)NonAf 48.72 Random Glucose 88 Calcium 8.6 Phosphorus 4.6 Magnesium 2.6 H Total Bilirubin 1.4 H Direct Bilirubin 0.8 H AST 12 L ALT 9 L Alkaline Phosphatase 143 H Total Protein 6.0 L Albumin 2.0 L Active Medications Generic Name Dose Route Start Last Admin Trade Name Freq PRN Reason Stop Dose Admin Albuterol/Ipratropium 1 amp 11/06/18 08:00 11/07/18 12:07 Duoneb - NEB 1 amp RQID [facility] Administration Amantadine HCl 100 mg 11/06/18 10:00 Symmetrel Oral Solution - GT BID [facility] Carbidopa/Levodopa 2 each 11/05/18 22:45 11/05/18 23:20 Sinemet 25/250 - GT 2 each TID [facility] Administration Chlorhexidine Gluconate 1 applic 11/05/18 22:00 11/06/18 22:15 Hibiclens For Decolonization - TP 1 applic HS [facility] Administration Collagenase 1 applic 11/06/18 12:30 11/07/18 09:16 Santyl - TP 1 drop DAILY [facility] Administration Protocol Furosemide 40 mg 11/07/18 14:00 11/07/18 14:28 Lasix Injection - IVPUSH 40 mg BID@0600,1400 [facility] Administration Heparin Sodium (Porcine) 1,000 unit 11/06/18 12:39 Heparin - IVPUSH PRN PRN Heparin Heparin Sodium (Porcine) 5,000 unit 11/06/18 12:39 11/06/18 14:34 Heparin - IVPUSH 5,000 unit PRN PRN Administration Heparin Homatropine HBr 1 drop 11/06/18 10:00 11/07/18 13:46 Isopto Homatropine 5% - OD 1 drop QID [facility] Administration Heparin Sodium/Dextrose 25,000 units in 500 mls @ 20 mls/hr 11/06/18 12:45 12:57 Heparin Infusion - IVPB Not Given TITR [facility] Protocol 1,000 UNITS/HR Vancomycin HCl 1,250 mg/ 250 mls @ 166.667 mls/hr 11/06/18 14:45 11/07/18 13: 46 Dextrose IVPB 166.667 mls/hr Q24H [facility] Administration Protocol Piperacillin Sod/Tazobactam 50 mls @ 100 mls/hr 11/06/18 15:00 11/07/18 14:28 Sod 3.375 gm/ Dextrose IVPB 100 mls/hr Q6H-IV [facility] Administration Protocol Latanoprost 1 drop 11/06/18 22:00 11/06/18 22:20 Xalatan 0.005% Eye Drops - OU 1 drop HS [facility] Administration Metoprolol Tartrate 5 mg 11/06/18 13:04 Lopressor Injection - IVPUSH Q4H PRN [facility] Metoprolol Tartrate 5 mg 11/06/18 13:15 11/07/18 13:59 Lopressor Injection - IVPUSH 5 mg Q6H [facility] Administration Mupirocin 1 applic 11/05/18 22:00 11/07/18 09:14 Bactroban Ointment (For Decolonization) - NS 11/10/18 21:59 1 applic BID [facility] Administration Pantoprazole Sodium 40 mg 11/06/18 10:45 11/07/18 09:13 Protonix Iv IVPUSH 40 mg DAILY [facility] Administration Tobramycin/Dexamethasone 1 drop 11/06/18 10:00 11/07/18 09:16 Tobradex Ophthalmic Suspension - OU 1 drop BID [facility] Administration Imaging: CXR 11/07: Worse. Progressive pulmonary and pleural changes. Tracheostomy tube. NG tube. KUB 11/07: 2 views of the abdomen reveal NG tube, degenerative changes, right hip replacement and vascular calcifications. There is a paucity of bowel gas. There appear to be contrast-filled loops of bowel seen most likely representing a small bowel obstruction as was suggested on the 11/05/[address] scan. Correlation and follow-up recommended RUQ U/S 11/06: The liver measures 17 cm in sagittal length with a slightly dense and coarse echotexture. Gallbladder is adequately distended with a slightly hyperechoic intraluminal masslike density that may represent a sludge. Cannot entirely rule out a mass. No intrahepatic bile duct dilatation is seen. Likely borderline dilatation of the common bile duct considering the patient's age, measuring 7.5 mm. The right kidney measures 7.7 cm sagittal length with an exophytic simple cyst measuring 4.6 x 4.2 cm. Nonvisualization of the pancreas. Abdominal aorta was not visualized. Visualized portion of the inferior vena cava appears unremarkable. Normal flow in the main portal vein. Right pleural effusion CXR 11/06: 2 views of the chest reveal an NG tube with its tip below the GE junction with wide mediastinum, congestive and infiltrative changes, old rib trauma and airway catheter. Correlation recommended. CT abd/pel 11.05: Several dilated proximal jejunal bowel loops are noted probably on the basis of bowel obstruction and less likely representing a localized ileus. There is also mild to moderate gastric distention. A percutaneous gastrostomy tube is noted in place. There is no definite CT evidence of mesenteric ischemia. Early acute mesenteric ischemia may not be demonstrable on CT. Bilateral pleural effusions with bibasilar compressive atelectasis. Additional left lower lobe opacity is seen which may represent atelectasis versus infiltrate. Correlate clinically. Cardiomegaly. Bilateral flank subcutaneous edema. Mild nonspecific common bile duct dilatation is noted. Clinical/laboratory correlation is suggested. CXR 11/05: Single view of the chest reveals a prominent mediastinum with plaque in the aorta, airway catheter , congestive changes and bibasilar atelectasis or infiltrates with right effusion. There is abdominal distention. There may be a PEG tube present. There are no prior studies for comparison. Follow-up recommended. EKG 11/05/18: qtc 542; Afib w/ RVR. ST abnormal, poss inferior sub-endocardial injury ASSESSMENT/PLAN: 88 y.o. M PMH Parkinsons, COPD, HTN, CHF, A-fib, respiratory failure- trached to vent, PEG in place. Presented w/ abdominal distension found to have SBO w/ dilated CBD as well as PNA. #SBO -NGT in place to low continuous suction w/ minimal output -Serial abd exams -Daily abd XR's -NPO, IVF -Surgery (Dr. Redd) following #CBD dilation -CT abd/pel: nonspecific common bile duct dilatation -RUQ US: distended GB w/ possible biliary sludge. Likely dilated CBD (7.5mm, large for pt's age). -Total bili 1.4; direct bili 0.8 -GI (Dr. Denis) following: plan for MRCP tomorrow 11/08/18 #Sepsis 2/2 PNA -CT abd/pel: Bilateral pleural effusions with bibasilar compressive atelectasis. Additional LLL opacity seen, may represent atelectasis vs infiltrate -CXR today: worsening progressive pulmonary and pleural changes -C/w IV abx: Vanc 1250mg daily & Zosyn 3.375g IV q6h -F/u vanc trough prior to 4th dose (11/09/18) -Tachycardic. Afebrile -Sputum cx polymicrobial: + LFNB, Proteus, Pseudomonas -Urine cx + yeasts; UA 3+ LE, 3+ blood, WBC 161, 1+ bilirubin, 1+ protein- galarza not changed in ED, may be d/t dirty catch -Legionella ag/ S. pneumo ag neg -Trached to vent -ID (Dr. Vogt) following #Parkinsons disease -Holding carbidopa/ levodopa/ amantadine #HTN -Metoprolol tartrate 5mg IV q6h; 5mg IV q4h PRN #CHF -C/w IV Lasix 80mg IV BID -F/u echo -Daily weights -Monitor Is & Os #A-fib -Heparin drip 25,000 U IV @20mL/ hr -C/w metoprolol -Holding Eliquis #Chronic resp failure -Trached to vent; TV 450/ RR 28/ FiO2 50/ PEEP 5 #Dysphagia -PEG in place -Holding tube feeds #FEN -NS @75mL/ hr -Trend lytes -NPO #DVT PPX -On heparin drip #Code Status -DNR Visit type - Emergency Visit Emergency Visit: No - New Patient This patient is new to me today: Yes Date on this admission: 11/07/18 - Critical Care Critical Care patient: Yes Total Critical Care Time (in minutes): 36 Critical Care Statement: The care of this patient involved high complexity decision making to prevent further life threatening deterioration of the patient 's condition and/or to evaluate & treat vital organ system(s) failure or risk of failure. ATTENDING PHYSICIAN STATEMENT I saw and evaluated the patient. I reviewed the resident's note and discussed the case with the resident. I agree with the resident's findings and plan as documented. SUBJECTIVE: OBJECTIVE: ASSESSMENT AND PLAN:
[2018-11-07] MEDS ORDERED: SODIUM CHLORIDE 1,000 ML IV SCH (17:45)
[2018-11-07] MEDS ORDERED: HYDROmorphone HCl 2 MG/ML VIAL IVPUSH PRN (18:42)
[2018-11-07] MEDS: CHLORHEXIDINE GLUCONATE 4% CLEANSER FOR DECOLONIZATION TP SCH (21:54)
[2018-11-07] MEDS: LATANOPROST 0.005% OPHTH SOLN 2.5ML BOTTLE OU SCH (21:55)
[2018-11-08] MEDS: PIPERACILLIN/TAZOB 3.375 GM 3.375 GM in DEXTROSE 5%-WATER - 50 ML IVPB SCH ×2 (03:15→09:47)
[2018-11-08] MEDS: METOPROLOL TARTRATE 5 MG/5 ML VIAL IVPUSH SCH ×4 (03:15→23:06)
[2018-11-08] MEDS: CARBIDOPA/LEVODOPA 25/250 TABLET (FP) GT SCH ×3 (05:20→21:20)
[2018-11-08 06:17] LABS: HEMATOCRIT 30.1 % (35.4-49); HEMOGLOBIN 9.4 GM/dL (11.7-16.9); MCH 29.1 pg (25.7-33.7); MCHC 31.1 g/dl (32.0-35.9); MEAN CELL VOLUME 93.4 fl (80-96); MEAN PLT VOLUME 7.9 fl (7.5-11.1); PLATELET COUNT 336 K/MM3 (134-434); RBC 3.23 M/mm3 (4.00-5.60); RDW 22.9 % (11.9-15.9); WHITE BLOOD COUNT 14.7 K/mm3 (4.0-10.0)
[2018-11-08 06:54] LABS: BLOOD UREA NITROGEN 55.6 mg/dL (7-18); CALCIUM 8.4 mg/dL (8.5-10.1); CREATININE 2.1 mg/dL (0.55-1.3); POTASSIUM 4.7 mmol/L (3.5-5.1); TOT PROT 6.2 g/dl (6.4-8.2)
[2018-11-08] MEDS ORDERED: DEXTROSE 50%-WATER - 25 GM/50 ML VIAL IVPUSH ONE (07:04)
[2018-11-08] MEDS ORDERED: DEXTROSE 50%-WATER - 25 GM/50 ML VIAL ONE (07:09)
[2018-11-08 07:18] LABS: ALLENS TEST POSITIVE
[2018-11-08 07:23] LABS: ARTERIAL BLD GAS O2 SATURATION 97.8 % (95-98); ARTERIAL BLOOD GAS BASE EXCESS -10.5 meq/l (-2-2); ARTERIAL BLOOD GAS PO2 123 mmHg (80-100); ARTERIAL BLOOD GAS pH 7.25 (7.35-7.45)
[2018-11-08] MEDS: ALBUTEROL SO4 2.5/IPRATROPIUM 0.5 INH SOL 3 ML VIAL.NEB. NEB SCH ×4 (07:30→20:29)
[2018-11-08] MEDS: HYDROmorphone HCl 2 MG/ML VIAL IVPUSH PRN (08:30)
[2018-11-08] MEDS ORDERED: PNEUMOC 13-VAL CONJ-DIP CRM/PF 0.5 ML DISP.SYRIN IM ONE (09:00)
[2018-11-08] MEDS ORDERED: PIPERACILLIN/TAZOBACTAM 3.375 GM VIAL IVPB ONE ×2 (09:23→13:17)
[2018-11-08] MEDS ORDERED: DEXTROSE 5%-WATER - 50 ML IVPB ONE ×2 (09:23→13:17)
[2018-11-08] MEDS: PANTOPRAZOLE SODIUM 40 MG VIAL IVPUSH SCH (09:47)
[2018-11-08] MEDS: MUPIROCIN 2% TOPICAL OINTMENT FOR DECOLONIZATION NS SCH ×3 (09:48→21:20)
[2018-11-08] MEDS: TOBRA 0.3%/DEXAMETH 0.1% OPHTHALMIC SUSP 2.5 ML BTL OU SCH ×2 (09:49→22:00)
[2018-11-08] MEDS: AMANTADINE HCL 100MG/10 ML UNIT DOSE CUPS GT SCH ×2 (09:50→21:20)
[2018-11-08] MEDS: COLLAGENASE CLOSTRIDIUM HIST. 30 GRAMS TUBE TP SCH (09:50)
[2018-11-08] MEDS: [UNRECOGNIZED DRUG - OTHER] OD SCH ×4 (09:51→22:00)
[2018-11-08] MEDS ORDERED: DEXTROSE 5%-NORMAL SALINE 1,000 ML IV ONE (11:28)
[2018-11-08] MEDS ORDERED: DEXTROSE 5%-WATER - 1,000 ML IV SCH (11:30)
--- NOTE | 2018-11-08 12:04 | PN ---
Teaching Attending Note Name of Resident: Marian Marquez ATTENDING PHYSICIAN STATEMENT I saw and evaluated the patient. I reviewed the resident's note and discussed the case with the resident. I agree with the resident's findings and plan as documented. SUBJECTIVE: Pt seen and examined in the ICU. Vented, poorly responsive. Borderline hypotensive this AM. OBJECTIVE: Vital Signs Period Temp Pulse Resp BP Sys/Cope Pulse Ox Last 24 Hr 97.7 F-100.5 F 84-117 20-40 91-168/50-93 94-99 Intake & Output 11/05/18 11/06/18 11/07/18 11/08/18 23:59 23:59 23:59 23:59 Intake Total 1456 2403 200 Output Total 1100 650 30 Balance 356 1753 170 Weight 113.398 kg 80.286 kg 84.8 kg 85.8 kg Gen: vented, poorly responsive, tachypneic Heart: RRR Lung: decreased breath sounds at the bases Abd: softly distended, nontender Ext: no edema CBC, BMP 11/08/18 05:35 11/08/18 05:35 Active Medications Albuterol/Ipratropium (Duoneb -) 1 amp NEB RQID [facility] Last Admin: 11/08/18 07:30 Dose: 1 amp Amantadine HCl (Symmetrel Oral Solution -) 100 mg GT BID [facility] Last Admin: 11/08/18 09:50 Dose: Not Given Carbidopa/Levodopa (Sinemet 25/250 -) 2 each GT TID [facility] Last Admin: 11/08/18 05:20 Dose: Not Given Chlorhexidine Gluconate (Hibiclens For Decolonization -) 1 applic TP HS [facility] Last Admin: 11/07/18 21:54 Dose: 1 applic Collagenase (Santyl -) 1 applic TP DAILY [facility]; Protocol Last Admin: 11/08/18 09:50 Dose: 1 applic Furosemide (Lasix Injection -) 80 mg IVPUSH BID@0600,1400 [facility] Last Admin: 11/08/18 05:26 Dose: 80 mg Homatropine HBr (Isopto Homatropine 5% -) 1 drop OD QID [facility] Last Admin: 11/08/18 09:51 Dose: 1 drop Hydromorphone HCl (Dilaudid Vial -) 2 mg IVPUSH Q2H PRN PRN Reason: PAIN LEVEL 7 - 10 Last Admin: 11/08/18 08:30 Dose: 2 mg Hydromorphone HCl (Dilaudid Vial -) 1 mg IVPUSH Q2H PRN PRN Reason: PAIN LEVEL 4 - 6 Vancomycin HCl 1,250 mg/ (Dextrose) 250 mls @ 166.667 mls/hr IVPB Q24H [facility]; Protocol Last Admin: 11/07/18 13:46 Dose: 166.667 mls/hr Piperacillin Sod/Tazobactam (Sod 3.375 gm/ Dextrose) 50 mls @ 100 mls/hr IVPB Q6H-IV [facility]; Protocol Last Admin: 11/08/18 09:47 Dose: 100 mls/hr Dextrose/Sodium Chloride (D5-Ns -) 1,000 mls @ 100 mls/hr IV ASDIR [facility] Latanoprost (Xalatan 0.005% Eye Drops -) 1 drop OU HS [facility] Last Admin: 11/07/18 21:55 Dose: 1 drop Metoprolol Tartrate (Lopressor Injection -) 5 mg IVPUSH Q4H PRN PRN Reason: TACHYCARDIA Metoprolol Tartrate (Lopressor Injection -) 5 mg IVPUSH Q6H [facility] Last Admin: 11/08/18 09:05 Dose: Not Given Mupirocin (Bactroban Ointment (For Decolonization) -) 1 applic NS BID [facility] Stop: 11/10/18 21:59 Last Admin: 11/08/18 09:54 Dose: 1 applic Pantoprazole Sodium (Protonix Iv) 40 mg IVPUSH DAILY [facility] Last Admin: 11/08/18 09:47 Dose: 40 mg Tobramycin/Dexamethasone (Tobradex Ophthalmic Suspension -) 1 drop OU BID [facility] Last Admin: 11/08/18 09:49 Dose: 1 drop ASSESSMENT AND PLAN: Chronic Respiratory Failure Pneumonia Small Bowel Obstruction Severe Sepsis Acute Kidney Injury Lactic Acidosis +Troponins likely Demand Ischemia Atrial Fibrillation COPD HTN Parkinsons Disease - antibiotics per ID - f/u cultures - IVF boluses - monitor urine output, creatinine - trend lactate - check AXR - NGT to ILWS - surgery f/u - rate control - continue anticoagulation if no intervention - holding feeds - DVT/GI prophylaxis - continue ICU monitoring critical care time spent in reviewing chart, evaluating patient and formulating plan 35 min
[2018-11-08] MEDS: DEXTROSE 5%-NORMAL SALINE 1,000 ML IV SCH (12:43)
[2018-11-08] MEDS ORDERED: PT OWN MED DRAWER 7, Y5N ONE (13:19)
--- NOTE | 2018-11-08 13:45 | PN ---
Physical Exam: SUBJECTIVE: Patient seen and examined at bedside. Pt was nonverbal on exam. OBJECTIVE: Vital Signs Period Temp Pulse Resp BP Sys/Cope Pulse Ox Last 24 Hr 97.7 F-100.5 F 84-117 20-40 86-168/50-93 94-99 GENERAL: The patient is awake, alert. in no acute distress. Pt has trach and PEG HEAD: Normal with no signs of trauma. EYES: pupils sluggish, sclera anicteric, conjunctiva clear. No ptosis. LUNGS: Breath sounds equal, rhonchorus sounds bilaterally HEART: tachycardic and irregular rhythm, S1, S2 without murmur, rub or gallop. ABDOMEN: Soft, nontender, mildly distended, no bowel sounds, no guarding, no rebound, no hepatosplenomegaly, no masses. SKIN: Warm, dry, normal turgor, no rashes or lesions noted Laboratory Last Values WBC 14.7 K/mm3 (4.0-10.0) H 11/08/18 05:35 RBC 3.23 M/mm3 (4.00-5.60) L 11/08/18 05:35 Hgb 9.4 GM/dL (11.7-16.9) L 11/08/18 05:35 Hct 30.1 % (35.4-49) L 11/08/18 05:35 MCV 93.4 fl (80-96) 11/08/18 05:35 MCH 29.1 pg (25.7-33.7) 11/08/18 05:35 MCHC 31.1 g/dl (32.0-35.9) L 11/08/18 05:35 RDW 22.9 % (11.9-15.9) H 11/08/18 05:35 Plt Count 336 K/MM3 (134-434) 11/08/18 05:35 MPV 7.9 fl (7.5-11.1) 11/08/18 05:35 Absolute Neuts (auto) 9.4 K/mm3 (1.5-8.0) H 11/07/18 05:30 Neutrophils % No Result Required. 11/07/18 05:30 Neutrophils % (Manual) 82.8 % (42.8-82.8) 11/07/18 05:30 Band Neutrophils % 0.0 % 11/07/18 05:30 Lymphocytes % No Result Required. 11/07/18 05:30 Lymphocytes % (Manual) 9.1 % (8-40) D 11/07/18 05:30 Monocytes % 7.0 % (3.8-10.2) 11/06/18 05:30 Monocytes % (Manual) 6 % (3.8-10.2) D 11/07/18 05:30 Eosinophils % 0.4 % (0-4.5) D 11/06/18 05:30 Eosinophils % (Manual) 2.0 % (0-4.5) D 11/07/18 05:30 Basophils % 0.4 % (0-2.0) D 11/06/18 05:30 Basophils % (Manual) 0.0 % (0-2.0) 11/07/18 05:30 Myelocytes % (Man) 0 % (0-2) 11/07/18 05:30 Promyelocytes % (Man) 0 % (0-2) 11/07/18 05:30 Blast Cells % (Manual) 0 % (0-0) 11/07/18 05:30 Nucleated RBC % 0 % (0-0) 11/07/18 05:30 Metamyelocytes 0 % (0-2) 11/07/18 05:30 Hypochromia 0 11/07/18 05:30 Platelet Estimate Normal 11/07/18 05:30 Platelet Comment Present 11/05/18 14:37 Polychromasia 0 11/07/18 05:30 Poikilocytosis 0 11/07/18 05:30 Anisocytosis 0 11/07/18 05:30 Microcytosis 0 11/07/18 05:30 Macrocytosis 0 11/07/18 05:30 Spherocytes 1+ 11/05/18 14:37 Tear Drop Cells 1+ 11/05/18 14:37 Ovalocytes 1+ 11/05/18 14:37 Acanthocytes (Spur) 1+ 11/05/18 14:37 Rouleaux 3+ 11/07/18 05:30 PT with INR 26.40 SEC (9.7-13.0) H 11/06/18 05:30 INR 2.22 (0.83-1.09) H 11/06/18 05:30 PTT (Actin FS) 38.3 SECONDS (25.2-36.5) H 11/08/18 05:35 Anticoagulation Therapy No Result Required. 11/08/18 07:00 Puncture Site Right radial 11/08/18 07:00 ABG pH 7.25 (7.35-7.45) L 11/08/18 07:00 ABG pCO2 at Pt Temp 37.0 mmHg (35-45) 11/08/18 07:00 ABG pO2 at Pt Temp 123 mmHg (80-100) H 11/08/18 07:00 ABG HCO3 15.6 mmol/L (22-27) L 11/08/18 07:00 ABG O2 Sat (Measured) 97.8 % (95-98) 11/08/18 07:00 ABG O2 Content 14.1 % vol 11/08/18 07:00 ABG Base Excess -10.5 meq/l (-2-2) L 11/08/18 07:00 Santiago Test Positive 11/08/18 07:00 VBG pH 7.49 (7.31-7.41) H 11/05/18 14:40 POC VBG pCO2 34.4 mmHg (38-52) L 11/05/18 14:40 POC VBG pO2 54.9 mmHg (28-48) H 11/05/18 14:40 VBG HCO3 26.1 mmol/L (23-29) 11/05/18 14:40 VBG O2 Sat (Stacey) 86.9 % (70-80) H 11/05/18 14:40 VBG Base Excess 3.6 meq/l (-2-2) H 11/05/18 14:40 Carboxyhemoglobin 1.6 % (0-2) 11/05/18 20:05 Methemoglobin < 1.0 % (0-2) 11/05/18 20:05 O2 Delivery Device [facility] vent 11/08/18 07:00 Oxygen Flow Rate 70% 11/08/18 07:00 Vent Mode A/c 11/08/18 07:00 Vent Rate 12 11/08/18 07:00 Mechanical Rate Yes 11/08/18 07:00 PEEP 5.0 cmH2O 11/08/18 07:00 Pressure Support Vent 450 11/08/18 07:00 Sodium 139 mmol/L (136-145) 11/08/18 05:35 Potassium 4.7 mmol/L (3.5-5.1) 11/08/18 05:35 Chloride 101 mmol/L (98-107) 11/08/18 05:35 Carbon Dioxide 19 mmol/L (21-32) L 11/08/18 05:35 Anion Gap 19 MMOL/L (8-16) H 11/08/18 05:35 BUN 55.6 mg/dL (7-18) H 11/08/18 05:35 Creatinine 2.1 mg/dL (0.55-1.3) H 11/08/18 05:35 Est GFR (CKD-EPI)AfAm 31.62 11/08/18 05:35 Est GFR (CKD-EPI)NonAf 27.28 11/08/18 05:35 POC Glucometer 75 UNITS (80-120) 11/08/18 11:24 Random Glucose 31 mg/dL (74-106) L* 11/08/18 05:35 Lactic Acid 10.8 mmol/L (0.4-2.0) H* 11/08/18 07:52 Calcium 8.4 mg/dL (8.5-10.1) L 11/08/18 05:35 Phosphorus 4.6 mg/dL (2.5-4.9) 11/07/18 05:30 Magnesium 2.6 mg/dL (1.8-2.4) H 11/07/18 05:30 Total Bilirubin 2.0 mg/dL (0.2-1) H 11/08/18 05:35 Direct Bilirubin 0.8 mg/dL (0.0-0.2) H 11/07/18 05:30 AST 25 U/L (15-37) 11/08/18 05:35 ALT 14 U/L (13-61) 11/08/18 05:35 Alkaline Phosphatase 143 U/L (45-117) H 11/08/18 05:35 Troponin I 0.05 ng/ml (0.00-0.05) 11/06/18 05:30 B-Natriuretic Peptide 97358.0 pg/ml (5-450) H 11/05/18 14:45 Total Protein 6.2 g/dl (6.4-8.2) L 11/08/18 05:35 Albumin 2.0 g/dl (3.4-5.0) L 11/08/18 05:35 Urine Color Dk yellow 11/05/18 15:00 Urine Appearance Turbid 11/05/18 15:00 Urine pH 5.0 (5.0-8.0) 11/05/18 15:00 Ur Specific [place] 1.018 (1.010-1.035) 11/05/18 15:00 Urine Protein 1+ (NEGATIVE) H 11/05/18 15:00 Urine Glucose (UA) Negative (NEGATIVE) 11/05/18 15:00 Urine Ketones Trace (NEGATIVE) H 11/05/18 15:00 Urine Blood 3+ (NEGATIVE) H 11/05/18 15:00 Urine Nitrite Negative (NEGATIVE) 11/05/18 15:00 Urine Bilirubin 1+ (NEGATIVE) H 11/05/18 15:00 Urine Urobilinogen 1.0 mg/dL (0.2-1.0) 11/05/18 15:00 Ur Leukocyte Esterase 3+ (NEGATIVE) H 11/05/18 15:00 Urine WBC (Auto) 161 /hpf (0-5) 11/05/18 15:00 Urine RBC (Auto) 103.1 /hpf (0-4) 11/05/18 15:00 Urine Casts (Auto) 75 /lpf (0-8) 11/05/18 15:00 U Pathogenic Cast Auto Granular cast /lpf (NEGATIVE) 11/05/18 15:00 U Epithel Cells (Auto) 1.5 /HPF (0-5/HPF) 11/05/18 15:00 Urine Bacteria (Auto) 7 /hpf (NEGATIVE) 11/05/18 15:00 Urine Yeast (Auto) Present (NEGATIVE) 11/05/18 15:00 Current Medications Albuterol/Ipratropium (Duoneb -) 1 amp NEB RQID [facility] Last Admin: 11/08/18 11:35 Dose: 1 amp Amantadine HCl (Symmetrel Oral Solution -) 100 mg GT BID [facility] Last Admin: 11/08/18 09:50 Dose: Not Given Carbidopa/Levodopa (Sinemet 25/250 -) 2 each GT TID [facility] Last Admin: 11/08/18 13:27 Dose: Not Given Chlorhexidine Gluconate (Hibiclens For Decolonization -) 1 applic TP HS [facility] Last Admin: 11/07/18 21:54 Dose: 1 applic Collagenase (Santyl -) 1 applic TP DAILY [facility]; Protocol Last Admin: 11/08/18 09:50 Dose: 1 applic Homatropine HBr (Isopto Homatropine 5% -) 1 drop OD QID [facility] Last Admin: 11/08/18 13:28 Dose: 1 drop Hydromorphone HCl (Dilaudid Vial -) 2 mg IVPUSH Q2H PRN PRN Reason: PAIN LEVEL 7 - 10 Last Admin: 11/08/18 08:30 Dose: 2 mg Hydromorphone HCl (Dilaudid Vial -) 1 mg IVPUSH Q2H PRN PRN Reason: PAIN LEVEL 4 - 6 Vancomycin HCl 1,250 mg/ (Dextrose) 250 mls @ 166.667 mls/hr IVPB Q24H [facility]; Protocol Last Admin: 11/07/18 13:46 Dose: 166.667 mls/hr Piperacillin Sod/Tazobactam (Sod 3.375 gm/ Dextrose) 50 mls @ 100 mls/hr IVPB Q6H-IV [facility]; Protocol Last Admin: 11/08/18 09:47 Dose: 100 mls/hr Dextrose/Sodium Chloride (D5-Ns -) 1,000 mls @ 100 mls/hr IV ASDIR [facility] Last Admin: 11/08/18 12:43 Dose: 100 mls/hr Latanoprost (Xalatan 0.005% Eye Drops -) 1 drop OU HS [facility] Last Admin: 11/07/18 21:55 Dose: 1 drop Metoprolol Tartrate (Lopressor Injection -) 5 mg IVPUSH Q4H PRN PRN Reason: TACHYCARDIA Metoprolol Tartrate (Lopressor Injection -) 5 mg IVPUSH Q6H [facility] Last Admin: 11/08/18 13:26 Dose: Not Given Mupirocin (Bactroban Ointment (For Decolonization) -) 1 applic NS BID [facility] Stop: 11/10/18 21:59 Last Admin: 11/08/18 09:54 Dose: 1 applic Pantoprazole Sodium (Protonix Iv) 40 mg IVPUSH DAILY [facility] Last Admin: 11/08/18 09:47 Dose: 40 mg Tobramycin/Dexamethasone (Tobradex Ophthalmic Suspension -) 1 drop OU BID [facility] Last Admin: 11/08/18 09:49 Dose: 1 drop ASSESSMENT/PLAN: 88 yo M w/ PMH Parkinson's, COPD, HTN, CHF, Afib, respiratory failure ( trached to vent). Pt has PEG. Pt presented to the ED for abdominal distention. Pt is admitted for Severe Sepsis 2/2 Pneumonia and possible SBO. ARDS Chronic Respiratory Failure SBO Afib HTN CHF Neuro: -Awake, alert -pt has been non verbal since he had trach, baseline confirmed with son -hold sedatives -c/w sinemet 25/250 Cardiology -Afib -HTN -CHF -c/w beta rebecca -hold antihypertensives as pt is hypotensive today -D50-NS bolus -d/c lasix -[facility] -Echo EF 65-70 %, LV fxn normal, mild , moderate AR , TR Respiratory -Acute on Chronic respiratory failure -Trached to vent -Vent settings changed : A/C mode Rate 12, TV 450, Peak flow 60, PEEP 5, %O2 50 -CXRay improving, likely ARDS -Pneumonia, sputum culture growing Klebsiella pneumoniae, Pseudomonas Aerginosa , Proteus. Sensitivities reviewed RENAL - FRANCE, Cr 2.1 - monitor urine output. Urine output minimal today GASTROINTESTINAL -SBO vs ileus - mild nonspecific CBD dilation -Abdominal XR reviewed, awaiting CT abdomen -NGT decompression -NPO -Gi recommendations appreciated -possible MRCP once optimized -elevated LFTs likely 2/2 sepsis , continue to trend INFECTIOUS DISEASE -Sepsis 2/2 pneumonia -lactate downtrending 10.8-->8.2 -leukocytosis 11--> 14.7 -continue to trend lactic acid -Dr. Vogt consulted, recs appreciated -vanc level, DC vancomycin -flagyl as per ID recs HEMATOLOGY - no acute issues PSYCHIATRIC - no acute events F/E/N -D50-NS @ 100 -continue to monitor electrolytes and replete as necessary -NPO PROPHYLAXIS - SCDs CODE - DNR -Case discussed with family on the phone -Paliative Care consult to discuss goals of care with family Visit type - Emergency Visit Emergency Visit: No - New Patient This patient is new to me today: Yes Date on this admission: 11/05/18 - Critical Care Critical Care patient: Yes Total Critical Care Time (in minutes): 36 Critical Care Statement: The care of this patient involved high complexity decision making to prevent further life threatening deterioration of the patient 's condition and/or to evaluate & treat vital organ system(s) failure or risk of failure. - Discharge Referral Physician Referral: Deandre Quinonez DO (GI) ATTENDING PHYSICIAN STATEMENT I saw and evaluated the patient. I reviewed the resident's note and discussed the case with the resident. I agree with the resident's findings and plan as documented. SUBJECTIVE: OBJECTIVE: ASSESSMENT AND PLAN:
--- NOTE | 2018-11-08 14:14 | PN ---
Progress Note (short form) - Note Progress Note: doing poorly poor urine output overnight Vital Signs Period Temp Pulse Resp BP Sys/Cope Pulse Ox Last 24 Hr 97.7 F-100.5 F 84-117 26-40 86-165/50-90 94-99 trach to vent cor-rrr lungs decreased bs at bases abd soft, +GT ext no edema CBC, BMP 11/08/18 05:35 11/08/18 05:35 Microbiology 11/06/18 13:00 Sputum - Endotrachea Suction/Ventilator Gram Stain - Final 11/06/18 13:00 Sputum - Endotrachea Suction/Ventilator Sputum Culture - Preliminary Klebsiella Pneumoniae - Esbl Pseudomonas Aeruginosa Proteus Mirabilus - Esbl Produ 11/05/18 15:00 Blood - Peripheral Venous Blood Culture - Preliminary NO GROWTH OBTAINED AFTER 48 HOURS, INCUBATION TO CONTINUE FOR 3 DAYS. 11/05/18 14:30 Blood - Peripheral Venous Blood Culture - Preliminary NO GROWTH OBTAINED AFTER 48 HOURS, INCUBATION TO CONTINUE FOR 3 DAYS. 11/06/18 18:00 Urine For Antigen Detection Legionella Antigen - Final 11/06/18 18:00 Urine For Antigen Detection Streptococcus pneumoniae Antigen (M - Final 11/05/18 15:00 Urine - Urine - Catheterized Urine Culture - Final Yeast Like Organism a/p 3rd icu admission doing poorly-hypotensive with poor urine output, severe sepsis ?source cxray with bilateral infiltrates- ?fluid, ?pneumonia am not sure sputum isolates represent pneumonia but he is colonized with highly resistant GNR for ct scan repeat blood cultures cultures noted repeat ekg if qtc is okay then levaquin and meropenem otherwise ceftaz/avibactam and flagyl chronic respiratory failure with trach and peg overall prognosis poor STRICT CONTACT ISOLATION over 45 minutes spent in the care of this critically ill ICU patient
[2018-11-08] MEDS ORDERED: MEROPENEM 1 GM in DEXTROSE 5%-WATER 100 ML IVPB SCH (14:30)
[2018-11-08] MEDS ORDERED: MEROPENEM 1 GM VIAL (RESTRICTED TO ID) IVPB ONE (14:57)
[2018-11-08] MEDS ORDERED: DEXTROSE 5%-WATER 100 ML IVPB ONE (14:58)
[2018-11-08] MEDS: CEFTAZIDIME/AVIBACTAM 1.25 GM in DEXTROSE 5%-WATER - 100 ML IVPB SCH ×2 (15:51→18:03)
--- NOTE | 2018-11-08 16:04 | PN ---
Progress Note (short form) - Note Progress Note: Pt seen earlier this am. His IV heparin has been stopped over night for bleeding from trach site and galarza catheter. Ngt with minimal output. Nursing staff noted a soft/brown BM yesterday. Vital Signs Period Temp Pulse Resp BP Sys/Cope Pulse Ox Last 24 Hr 97.7 F-100.5 F 84-117 26-40 86-165/50-90 94-99 NGT: light green/brown. 200 ml yesterday and nothing recorded overnight GEN: Trach in place and on Vent ABD: Soft, slight distended, mild tenderness/ guarding. No rebound. NGT pulled back and secured at 65cm(was at 70). Air ausculated over the upper abd when air placed into the NGT. Minimal ngt contents returned(only in tubing) Rectal: Minimal stool in vault, brown and non-bloody with exam CBC, BMP 11/08/18 05:35 11/08/18 05:35 AXR: Paucity of bowel gas/ NGT in place. no A/F levels Laboratory Tests 11/06/18 11/08/18 11/08/18 02:45 07:52 12:55 Lactic Acid 1.9 10.8 H* 8.2 H* Microbiology 11/06/18 13:00 Sputum - Endotrachea Suction/Ventilator Gram Stain - Final 11/06/18 13:00 Sputum - Endotrachea Suction/Ventilator Sputum Culture - Preliminary Klebsiella Pneumoniae - Esbl Pseudomonas Aeruginosa Proteus Mirabilus - Esbl Produ 11/05/18 15:00 Blood - Peripheral Venous Blood Culture - Preliminary NO GROWTH OBTAINED AFTER 72 HOURS, INCUBATION TO CONTINUE FOR 2 DAYS. 11/05/18 14:30 Blood - Peripheral Venous Blood Culture - Preliminary NO GROWTH OBTAINED AFTER 72 HOURS, INCUBATION TO CONTINUE FOR 2 DAYS. A/p: 88 yo male with elevated lactic acid level and poor prognosis. He remains on vent in ICU with decrease in UOP and slight hypotension. ICU care giving IV fluids Recommend NPO, NGT decompression and plan for CT scan to evaluate his abdomen. His repeat abdominal exam this afternoon was less tender, although concern for ischemia with an elevation of his lactic acid level, hypotension and worsening kidney function. IV abx changed today by ID D/w his care and plan with the ICU residents. Plan was to speak with the family to determine the desire for further treatment. Will await CT scan results and families desires if surgery is needed. D/w Dr. Redd
--- NOTE | 2018-11-08 16:07 | ECHO ---
Name: NICOLE SPARROW Exam:Adult Echocardiogram Study Date: 11/08/2018 11:37 AM Age: 88 yrs Reason For Study: CHF Height: 68 in Weight: 250 lb BSA: 2.2 m2 MMode/2D Measurements & Calculations IVSd: 1.4 cm Ao root diam: 3.9 cm LVIDd: 3.4 cm LA dimension: 3.4 cm LVIDs: 2.0 cm LVPWd: 0.99 cm EDV(Teich): 47.8 ml LVOT diam: 2.0 cm ESV(Teich): 12.7 ml Doppler Measurements & Calculations MV E max cirilo: 135.0 cm/sec Ao V2 max: 150.7 cm/sec MV dec time: 0.18 sec Ao max P.1 mmHg Ao V2 mean: 127.8 cm/sec Ao mean P.6 mmHg Ao V2 VTI: 35.1 cm CRISTIAN(I,D): 1.1 cm2 AI P1/2t: 338.4 msec CRISTIAN(V,D): 1.5 cm2 AI max cirilo: 325.0 cm/sec LV V1 max P.2 mmHg AI max P.4 mmHg LV V1 mean P.2 mmHg AI dec slope: 281.3 cm/sec2 LV V1 max: 73.7 cm/sec LV V1 mean: 49.9 cm/sec LV V1 VTI: 12.8 cm MR max cirilo: 392.2 cm/sec SV(LVOT): 39.8 ml MR max P.6 mmHg TR max cirilo: 298.3 cm/sec PA V2 max: 92.3 cm/sec TR max P.6 mmHg PA max P.4 mmHg Med Peak E' Cirilo: 2.2 cm/sec Med E/e': 62.0 Lat Peak E' Cirilo: 5.1 cm/sec Lat E/e': 26.4 Procedure A complete two-dimensional transthoracic echocardiogram was performed (2D, M-mode, Doppler and color flow Doppler). Left Ventricle The left ventricle is normal in size. Left ventricular systolic function is normal. Ejection Fraction = 65- 70%. No regional wall motion abnormalities noted. Right Ventricle The right ventricle is normal size. The right ventricular systolic function is normal. Atria The left atrial size is normal. The right atrium is moderately dilated. Mitral Valve There is mild mitral valve thickening. There is mild to moderate mitral annular calcification. There is mild to moderate mitral regurgitation. Tricuspid Valve The tricuspid valve is normal in structure and function. There is moderate tricuspid regurgitation. P ulmonary artery systolic pressure is at least 44 mmHg if RA pressure is assumed 3 mmHg. Aortic Valve There is mild aortic valve thickening. Mild valvular aortic stenosis. The calculated aortic valve are a using the continuity equation is 1.2 cm2. DI (dimensionless index) is 0.36. Moderate aortic regurgitation. Pulmonic Valve The pulmonic valve is not well visualized. Great Vessels The aortic root is normal size. Pericardium/Pleura There is no pericardial effusion. There is a pleural effusion present. Interpretation Summary The left ventricle is normal in size. Left ventricular systolic function is normal. No regional wall motion abnormalities noted. Ejection Fraction = 65-70%. The right ventricular systolic function is normal. The left atrial size is normal. The right atrium is moderately dilated. There is mild mitral valve thickening. There is mild to moderate mitral annular calcification. There is mild to moderate mitral regurgitation. There is moderate tricuspid regurgitation. Pulmonary artery systolic pressure is at least 44 mmHg if RA pressure is assumed 3 mmHg There is mild aortic valve thickening. Mild valvular aortic stenosis. DI (dimensionless index) is 0.36 The calculated aortic valve area using the continuity equation is 1.2 cm2. Moderate aortic regurgitation. There is no pericardial effusion. There is a pleural effusion present. Previous study is not available for comparison Vito Hernandez MD 11/08/2018 04:06 PM
[2018-11-08] MEDS ORDERED: HEPARIN NA (PORCINE) 5,000 UNITS/ML 1ML VIAL IVPUSH PRN ×2 (16:15)
--- NOTE | 2018-11-08 16:35 | PN.GI ---
GI Progress Note Subjective: Pt seen/examined at bedside, nonverbal, does not respond to verbal or tactile stimuli, minimal NG output noted. Mild hypotension noted. Small brown bm reported per nursing staff. Pending repeat CT imaging. - Objective Vital Signs: Vital Signs Temperature 98.4 F 11/08/18 12:00 Pulse Rate 112 H 11/08/18 16:00 Respiratory Rate 28 H 11/08/18 16:00 Blood Pressure 99/56 L 11/08/18 16:00 O2 Sat by Pulse Oximetry (%) 99 11/08/18 09:00 Constitutional: Other (nonverbal) Cardiovascular: Yes: WNL, Regular Rate and Rhythm Respiratory: Yes: WNL, Regular, CTA Bilaterally ...Palpate: Yes: Other (abd soft, no tenderness elicited, non distended, no rebound, guarding or rigidity +peg in place) Labs: CBC, BMP 11/08/18 05:35 11/08/18 05:35 INR, PTT INR 2.22 (0.83-1.09) H 11/06/18 05:30 Assessment/Plan 88yo male h/o Parkinsons disease, CHF, COPD, A fib on eliquis, respiratory failure s/p trach, PEG presenting with abdominal distension and with elevated LFTs. US imaging revealing gallbladder sludge with possible wall thickening and borderline CBD dilation. CT with possible small bowel obstruction vs ileus. Leucytosis and lactic acidosis noted. 1. ?Partial SBO vs ileus: Clinically appears to be resolving however lactic acidosis noted. -Continue NPO, NGT to LIWS -Follow up repeat CT results r/o ischemic process -Further recommendations per surgery 2. Elevated LFTs: likely multifactorial in setting of sepsis vs congestive hepatopathy. Cannot exclude small stone/sludge. -Continue to closely monitor LFT trend -Await CT results as noted above -Antibiotics per ID -Avoid nonessential hepatotoxic medications -Goals of care discussion per primary team
--- NOTE | 2018-11-08 16:48 | PN ---
Teaching Attending Note Name of Resident: Renate Montilla ATTENDING PHYSICIAN STATEMENT I saw and evaluated the patient. I reviewed the resident's note and discussed the case with the resident. I agree with the resident's findings and plan as documented. SUBJECTIVE:resting comfortable pt had +Bm yesterday was noted to by hypoglycemic this AM which responded to D5 OBJECTIVE: Last Vital Signs Temp Pulse Resp BP Pulse Ox 98.4 F 112 H 28 H 99/56 L 99 11/08/18 12:00 11/08/18 16:00 11/08/18 16:00 11/08/18 16:00 11/08/18 09:00 General lethargic. responds to tactile stimuli CV S2 S2 irregular, tachycardic lungs coarse breath sounds anteriorly Abdomen soft +distended, tympanic. diffusely tender. no BS Extremities tremors at baseline ASSESSMENT AND PLAN: 88yo M with PMH parkinson, COPD, HTN, Afib, chronic respiratory failure s/p trach and PEG presented to the Er with fevers and abdominal distention and foudn to be septic due to PNA and SBO with dilated CBD as well 1. Sepsis due to poly-microbial PNA-awaiting sepciation. on vanco and zosyn. cont IVF. ID on board. f/u Cx 2. SBO- did have BM yesterday but in light of elevated lactic acid will need to consider bowel ischemia with tender abdomen (which is change from yesterday). plan for CT with contrast. spoke with surgical pa who are on standby if needed. cont IVF and trend lactate. pain control. surgery on board 3. Dilated CBD- seen on imaging. elevated bilirubin. unstable for MRCP. U/s ordered. GI onboard 4. hypoglycemia- due to prolonged NPO. will switch IVF to include D5w 4. Afib- rate improved. cont metoprolol IV Q6H and prn. if remains uncontrolled can start amio ggt. on hep ggt 5. FRANCE- deu to sepsis and dehydration. hydrate, treat underlying infection. avoid nephrotoxic agents 6. unstageable buttock ulcer- visualized by RN not me 7. Tropinemia- due to demand from sepsis and tachycardia. peaked at 0.07 no need for ischemia eval here 8. Parkinon-hold oral agents at this time. re-start once able to take po 9. HTN- has been normotesnive. and currently hypotensive. hold all agents. IVF boluses prn. 10. chronic respiratory failure- s/p trach. vent dependent. management per ICU team 11. dsyphagia s/p PEG- hold TF at this time 12. DVT ppx- hep ggt 13. DNR 14. MICU monitoring. poor prognosis. palliative care consult. goals of care. The care of this patient involved high complexity decision making to prevent further life threatening deterioration of the patient's condition and/or to evaluate & treat vital organ system(s) failure or risk of failure. 35 minutes ASSESSMENT AND PLAN:
[2018-11-08] MEDS: HEPARIN - 25,000 UNIT in SODIUM CHLORIDE 495 ML IV SCH (18:02)
--- NOTE | 2018-11-08 20:15 | PN ---
Physical Exam: SUBJECTIVE: Patient seen and examined. Pt became hypoglycemic this morning and responded to D5W. Pt is non-verbal but does respond to tactile stimuli. + BM overnight OBJECTIVE: Vital Signs Period Temp Pulse Resp BP Sys/Cope Pulse Ox Last 24 Hr 97.7 F-98.7 F 84-112 24-40 86-151/50-90 94-99 GENERAL: The patient is awake and responds to tactile stimuli HEAD: Normal with no signs of trauma. EYES: PERRL, extraocular movements intact, sclera anicteric, conjunctiva clear. No ptosis. ENT: Ears normal, nares patent, moist mucous membranes. NECK: Trachea midline, full range of motion, supple. LUNGS: Breath sounds equal, rhonchi bilaterally, abdominal breathing HEART: Regular rate and irregular rhythm, S1, S2 without murmur, rub or gallop. ABDOMEN: Soft, tender to palpation in lower abdomen, mild distention, BS left side EXTREMITIES: edematous hands, +1 pitting edema of feet and cool to touch NEUROLOGICAL: responds to tactile stimuli, unable to assess further PSYCH: unable to assess SKIN: Warm, dry, ecchymosis noted on left hand Laboratory Results - last 24 hr 11/08/18 11/08/18 11/08/18 05:35 05:35 05:35 WBC 14.7 H RBC 3.23 L Hgb 9.4 L Hct 30.1 L MCV 93.4 MCH 29.1 MCHC 31.1 L RDW 22.9 H Plt Count 336 MPV 7.9 PTT (Actin FS) 38.3 H Anticoagulation Therapy Puncture Site ABG pH ABG pCO2 at Pt Temp ABG pO2 at Pt Temp ABG HCO3 ABG O2 Sat (Measured) ABG O2 Content ABG Base Excess Santiago Test O2 Delivery Device Oxygen Flow Rate Vent Mode Vent Rate Mechanical Rate PEEP Pressure Support Vent Sodium 139 Potassium 4.7 Chloride 101 Carbon Dioxide 19 L Anion Gap 19 H BUN 55.6 H Creatinine 2.1 H Est GFR (CKD-EPI)AfAm 31.62 Est GFR (CKD-EPI)NonAf 27.28 POC Glucometer Random Glucose 31 L* Lactic Acid Calcium 8.4 L Total Bilirubin 2.0 H AST 25 ALT 14 Alkaline Phosphatase 143 H Total Protein 6.2 L Albumin 2.0 L 08/26/19 08/26/19 08/26/19 07:00 07:03 07:46 WBC RBC Hgb Hct MCV MCH MCHC RDW Plt Count MPV PTT (Actin FS) Anticoagulation Therapy No Result Required. Puncture Site Right radial ABG pH 7.25 L ABG pCO2 at Pt Temp 37.0 ABG pO2 at Pt Temp 123 H ABG HCO3 15.6 L ABG O2 Sat (Measured) 97.8 ABG O2 Content 14.1 ABG Base Excess -10.5 L Santiago Test Positive O2 Delivery Device Mech vent Oxygen Flow Rate 70% Vent Mode A/c Vent Rate 12 Mechanical Rate Yes PEEP 5.0 Pressure Support Vent 450 Sodium Potassium Chloride Carbon Dioxide Anion Gap BUN Creatinine Est GFR (CKD-EPI)AfAm Est GFR (CKD-EPI)NonAf POC Glucometer 17 99 Random Glucose Lactic Acid Calcium Total Bilirubin AST ALT Alkaline Phosphatase Total Protein Albumin 11/08/18 11/08/18 11/08/18 07:52 11:24 12:55 WBC RBC Hgb Hct MCV MCH MCHC RDW Plt Count MPV PTT (Actin FS) Anticoagulation Therapy Puncture Site ABG pH ABG pCO2 at Pt Temp ABG pO2 at Pt Temp ABG HCO3 ABG O2 Sat (Measured) ABG O2 Content ABG Base Excess Santiago Test O2 Delivery Device Oxygen Flow Rate Vent Mode Vent Rate Mechanical Rate PEEP Pressure Support Vent Sodium Potassium Chloride Carbon Dioxide Anion Gap BUN Creatinine Est GFR (CKD-EPI)AfAm Est GFR (CKD-EPI)NonAf POC Glucometer 75 Random Glucose Lactic Acid 10.8 H* 8.2 H* Calcium Total Bilirubin AST ALT Alkaline Phosphatase Total Protein Albumin 11/08/18 11/08/18 16:35 16:48 WBC RBC Hgb Hct MCV MCH MCHC RDW Plt Count MPV PTT (Actin FS) Anticoagulation Therapy Puncture Site ABG pH ABG pCO2 at Pt Temp ABG pO2 at Pt Temp ABG HCO3 ABG O2 Sat (Measured) ABG O2 Content ABG Base Excess Santiago Test O2 Delivery Device Oxygen Flow Rate Vent Mode Vent Rate Mechanical Rate PEEP Pressure Support Vent Sodium Potassium Chloride Carbon Dioxide Anion Gap BUN Creatinine Est GFR (CKD-EPI)AfAm Est GFR (CKD-EPI)NonAf POC Glucometer 116 Random Glucose Lactic Acid 6.3 H* Calcium Total Bilirubin AST ALT Alkaline Phosphatase Total Protein Albumin Active Medications Generic Name Dose Route Start Last Admin Trade Name Freq PRN Reason Stop Dose Admin Albuterol/Ipratropium 1 amp 11/06/18 08:00 11/08/18 16:53 Duoneb - NEB 1 amp RQID LUCR[facility]IA Administration Amantadine HCl 100 mg 11/06/18 10:00 11/08/18 09:50 Symmetrel Oral Solution - GT Not Given BID [facility] Carbidopa/Levodopa 2 each 11/05/18 22:45 11/08/18 13:27 Sinemet 25/250 - GT Not Given TID [facility] Chlorhexidine Gluconate 1 applic 11/05/18 22:00 11/07/18 21:54 Hibiclens For Decolonization - TP 1 applic HS [facility]CRECIA Administration Collagenase 1 applic 11/06/18 12:30 11/08/18 09:50 Santyl - TP 1 applic DAILY [facility] Administration Protocol Heparin Sodium (Porcine) 1,000 unit 11/08/18 16:15 Heparin - IVPUSH PRN PRN Heparin Heparin Sodium (Porcine) 5,000 unit 11/08/18 16:15 Heparin - IVPUSH PRN PRN Heparin Homatropine HBr 1 drop 11/06/18 10:00 11/08/18 18:27 Isopto Homatropine 5% - OD 1 drop QID [facility] Administration Hydromorphone HCl 2 mg 11/07/18 18:40 11/08/18 08:30 Dilaudid Vial - IVPUSH 2 mg Q2H PRN Administration PAIN LEVEL 7 - 10 Hydromorphone HCl 1 mg 11/07/18 18:42 Dilaudid Vial - IVPUSH Q2H PRN PAIN LEVEL 4 - 6 Dextrose/Sodium Chloride 1,000 mls @ 100 mls/hr 11/08/18 11:30 11/08/18 12:43 D5-Ns - IV 100 mls/hr ASDIR LUCRECIA Administration Ceftazidime/Avibactam 1.25 gm/ 100 mls @ 50 mls/hr 11/08/18 15:15 11/08/18 18 :03 Dextrose IVPB 50 mls/hr Q8H-IV [facility] Administration Protocol Metronidazole 500 mg in 100 mls @ 100 mls/hr 11/08/18 15:15 11/08/18 18:03 Flagyl 500mg Premixed Ivpb - IVPB 100 mls/hr Q8H-IV [facility]CREC[facility] Administration Heparin Sodium (Porcine) 25, 500 mls @ 20 mls/hr 11/08/18 16:15 11/08/18 18: 02 000 unit/ Sodium Chloride IV 1,000 unit/hr TITR LUCRECIA 20 mls/hr Administration Protocol 1,000 UNIT/HR Latanoprost 1 drop 11/06/18 22:00 11/07/18 21:55 Xalatan 0.005% Eye Drops - OU 1 drop HS [facility] Administration Metoprolol Tartrate 5 mg 11/06/18 13:04 Lopressor Injection - IVPUSH Q4H PRN TACHYCARDIA Metoprolol Tartrate 5 mg 11/06/18 13:15 11/08/18 13:26 Lopressor Injection - IVPUSH Not Given Q6H [facility] Mupirocin 1 applic 11/05/18 22:00 11/08/18 09:54 Bactroban Ointment (For Decolonization) - NS 11/10/18 21:59 1 applic BID [facility] Administration Pantoprazole Sodium 40 mg 11/06/18 10:45 11/08/18 09:47 Protonix Iv IVPUSH 40 mg DAILY [facility] Administration Tobramycin/Dexamethasone 1 drop 11/06/18 10:00 11/08/18 09:49 Tobradex Ophthalmic Suspension - OU 1 drop BID [facility] Administration ASSESSMENT/PLAN: Mr. Smalls is an 88yo male with Parkinson's, COPD, CHF, HTN, a-fib on Eliquis, respiratory failure with trach and PEG, hx of prostate cancer who presents for abdominal distention and fevers. He was found to be septic 2/2 pneumonia, SBO, and CBD dilation. #sepsis 2/2 PNA -sputum culture: proteus, pseudomonas, and klebsiella -blood cultures pending, no growth to date -CXR- airspace changes may have diminished on right, stable on left -continue Ceftazidime/Avibactam and Flagyl -ID following -CBC #SBO -abdominal tender to palpation with minimal bowel sounds on left side -lactate elevation but is trending down 10.8-->6.3, possible ischemia -abdominal x-ray did not show air fluid levels, may have has loops of liquid bowel, radiology suggested CT -abdominal CT ordered, CT on 11/05 did not show ischemia but showed possible jejunal bowel obstruction -trend lactate -NPO #hypoglycemia BG 17 this morning, pt has been NPO -D5W 100ml/hr started -BGM -SSI #CHF Lungs are congested. D5W had to be started because of hypoglycemia. -monitor with CXR -d/c Lasix while on D5W, will reassess #CBD dilation -finding on CT abd 11/05. Planned MRCP but not qualifying now. -GI following -CMP #a-fib on Eliquis at admission rate-controlled -continue metoprolol -heparin was d/c yesterday because of red tinged sputum; today pt is therapeutic so restarted heparin #HTN pressures have been normal to hypotensive, currently on metoprolol -frequent VS checks #COPD -albuterol PRN #Parkinson's -holding home meds FEN D5W for hypoglycemia monitor lytes tube feedings held DVT Ppe herparin restarted this afternoon Visit type - Emergency Visit Emergency Visit: Yes ED Registration Date: 11/05/18 Care time: The patient presented to the Emergency Department on the above date and was hospitalized for further evaluation of their emergent condition. - New Patient This patient is new to me today: Yes Date on this admission: 11/08/18 - Critical Care Critical Care patient: Yes Total Critical Care Time (in minutes): 35 Critical Care Statement: The care of this patient involved high complexity decision making to prevent further life threatening deterioration of the patient 's condition and/or to evaluate & treat vital organ system(s) failure or risk of failure. - Discharge Referral Referred to [facility] Med P.C.: No ATTENDING PHYSICIAN STATEMENT I saw and evaluated the patient. I reviewed the resident's note and discussed the case with the resident. I agree with the resident's findings and plan as documented. SUBJECTIVE: OBJECTIVE: ASSESSMENT AND PLAN:
[2018-11-08] MEDS: CHLORHEXIDINE GLUCONATE 4% CLEANSER FOR DECOLONIZATION TP SCH (21:20)
[2018-11-08] MEDS: LATANOPROST 0.005% OPHTH SOLN 2.5ML BOTTLE OU SCH (22:00)
[2018-11-09] MEDS: METOPROLOL TARTRATE 5 MG/5 ML VIAL IVPUSH SCH ×4 (01:07→19:30)
[2018-11-09] MEDS: CEFTAZIDIME/AVIBACTAM 1.25 GM in DEXTROSE 5%-WATER - 100 ML IVPB SCH ×3 (01:08→17:08)
[2018-11-09] MEDS: CARBIDOPA/LEVODOPA 25/250 TABLET (FP) GT SCH ×3 (06:25→22:27)
[2018-11-09 06:26] LABS: BASO % 0.1 % (0-2.0); EOS % 0.2 % (0-4.5); HEMATOCRIT 27.8 % (35.4-49); HEMOGLOBIN 8.9 GM/dL (11.7-16.9); LYMPH % 1.9 % (8-40); MCH 29.2 pg (25.7-33.7); MCHC 31.9 g/dl (32.0-35.9); MEAN CELL VOLUME 91.5 fl (80-96); MEAN PLT VOLUME 7.7 fl (7.5-11.1); NEUT % 90.8 % (42.8-82.8); PLATELET COUNT 274 K/MM3 (134-434); RBC 3.04 M/mm3 (4.00-5.60); RDW 22.7 % (11.9-15.9); WHITE BLOOD COUNT 18.4 K/mm3 (4.0-10.0)
[2018-11-09 06:59] LABS: ALBUMIN 1.9 g/dl (3.4-5.0); BILIRUBIN,TOTAL 2.2 mg/dL (0.2-1); CALCIUM 7.6 mg/dL (8.5-10.1); CREATININE 2.7 mg/dL (0.55-1.3); MAGNESIUM 2.7 mg/dL (1.8-2.4); POTASSIUM 4.1 mmol/L (3.5-5.1); TOT PROT 5.8 g/dl (6.4-8.2)
[2018-11-09] MEDS ORDERED: PT OWN MED DRAWER 7, Y5N ONE (08:01)
[2018-11-09] MEDS: ALBUTEROL SO4 2.5/IPRATROPIUM 0.5 INH SOL 3 ML VIAL.NEB. NEB SCH ×4 (08:30→20:38)
--- NOTE | 2018-11-09 08:47 | PN ---
Progress Note (short form) - Note Progress Note: Vital Signs Period Temp Pulse Resp BP Sys/Cope Pulse Ox Last 24 Hr 97.4 F-98.4 F 84-112 24-41 86-138/40-93 86-99 NGT: 100ml UOP: 380ml GEN: Pt responded to verbal commands, opened mouth for suctioning ABD: soft, non-distended, non-tympanic. NGT remains secure at 65 cm. Flushed this am after ausculation over the upper abdomen to confirm placement. GT clamped, flushed with 10 cc NS(easily) to contents returned. Air ausculated also when GT flushed with air. Clamp NGT while giveing oral contrast CBC, BMP 11/09/18 05:25 11/09/18 05:25 Laboratory Tests 11/09/18 11/09/18 05:25 05:25 PTT (Actin FS) 85.1 H Lactic Acid 3.8 H* A/P: 88 yo male with sepsis/poor prognosis although his lactic acid level is improving His abdominal exam remains non-tender/non-distended, CT scan to be completed today. Oral contrast given holding on IV contrast pt with [place] Recommend to continue IV hydration IV heparin resumed overnight Surgery to follow to CT scan, continue npo/IV hydration and supportive measures
[2018-11-09] MEDS: PANTOPRAZOLE SODIUM 40 MG VIAL IVPUSH SCH (09:24)
--- NOTE | 2018-11-09 09:30 | EKG ---
Test Reason : Blood Pressure : / mmHG Vent. Rate : 098 BPM Atrial Rate : 100 BPM P-R Int : 000 ms QRS Dur : 096 ms QT Int : 462 ms P-R-T Axes : 000 -31 -18 degrees QTc Int : 589 ms UNDETERMINED RHYTHM LEFT AXIS DEVIATION PULMONARY DISEASE PATTERN PROLONGED QT ABNORMAL ECG Confirmed by Paul Lebron MD ([id number]) on 11/09/2018 9:30:17 AM Referred By: Confirmed By:Paul Lebron MD
[2018-11-09] MEDS: HYDROmorphone HCl 2 MG/ML VIAL IVPUSH PRN (09:38)
[2018-11-09] MEDS: COLLAGENASE CLOSTRIDIUM HIST. 30 GRAMS TUBE TP SCH (09:41)
[2018-11-09] MEDS: MUPIROCIN 2% TOPICAL OINTMENT FOR DECOLONIZATION NS SCH ×2 (09:42→22:26)
[2018-11-09] MEDS: [UNRECOGNIZED DRUG - OTHER] OD SCH ×4 (09:42→22:26)
[2018-11-09] MEDS: AMANTADINE HCL 100MG/10 ML UNIT DOSE CUPS GT SCH ×2 (09:43→22:27)
[2018-11-09] MEDS: TOBRA 0.3%/DEXAMETH 0.1% OPHTHALMIC SUSP 2.5 ML BTL OU SCH ×2 (09:43→22:27)
[2018-11-09] MEDS ORDERED: HYDROmorphone HCl 2 MG/ML VIAL IVPUSH PRN (10:38)
--- NOTE | 2018-11-09 10:56 | PN ---
Teaching Attending Note Name of Resident: Marian Marquez ATTENDING PHYSICIAN STATEMENT I saw and evaluated the patient. I reviewed the resident's note and discussed the case with the resident. I agree with the resident's findings and plan as documented. SUBJECTIVE: Pt seen and examined in the ICU. Remains vented, lethargic, more tachypneic today. OBJECTIVE: Vital Signs Period Temp Pulse Resp BP Sys/Cope Pulse Ox Last 24 Hr 97.4 F-98.4 F 84-112 24-41 68-138/40-93 86-98 Intake & Output 11/06/18 11/07/18 11/08/18 11/09/18 23:59 23:59 23:59 23:59 Intake Total 1456 2403 1300 2340 Output Total 1100 650 80 150 Balance 356 1753 1220 2190 Weight 80.286 kg 84.8 kg 85.8 kg 85.3 kg Gen: vented, lethargic, tachypneic Heart: irregular Lung: scattered rhonchi Abd: abdominal breathing, +TTP RUQ, softly distended Ext: no edema CBC, BMP 11/09/18 05:25 11/09/18 05:25 Active Medications Albuterol/Ipratropium (Duoneb -) 1 amp NEB RQID [facility] Last Admin: 11/08/18 20:29 Dose: 1 amp Amantadine HCl (Symmetrel Oral Solution -) 100 mg GT BID [facility] Last Admin: 11/09/18 09:43 Dose: Not Given Carbidopa/Levodopa (Sinemet 25/250 -) 2 each GT TID [facility] Last Admin: 11/09/18 06:25 Dose: Not Given Chlorhexidine Gluconate (Hibiclens For Decolonization -) 1 applic TP HS [facility] Last Admin: 11/08/18 21:20 Dose: 1 applic Collagenase (Santyl -) 1 applic TP DAILY [facility]; Protocol Last Admin: 11/09/18 09:41 Dose: 1 applic Homatropine HBr (Isopto Homatropine 5% -) 1 drop OD QID [facility] Last Admin: 11/09/18 09:42 Dose: 1 drop Hydromorphone HCl (Dilaudid Vial -) 0.5 mg IVPUSH Q4H PRN PRN Reason: PAIN LEVEL 4 - 6 Dextrose/Sodium Chloride (D5-Ns -) 1,000 mls @ 100 mls/hr IV ASDIR [facility]CRECIA Last Admin: 11/08/18 12:43 Dose: 100 mls/hr Ceftazidime/Avibactam 1.25 gm/ (Dextrose) 100 mls @ 50 mls/hr IVPB Q8H-IV [facility]; Protocol Last Admin: 11/09/18 09:23 Dose: 50 mls/hr Metronidazole (Flagyl 500mg Premixed Ivpb -) 500 mg in 100 mls @ 100 mls/hr IVPB Q8H-IV [facility] Last Admin: 11/09/18 09:23 Dose: 100 mls/hr Heparin Sodium (Porcine) 25, (000 unit/ Sodium Chloride) 500 mls @ 20 mls/hr IV TITR [facility]; Protocol Last Titration: 11/09/18 09:51 Dose: 900 unit/hr, 18 mls/hr Latanoprost (Xalatan 0.005% Eye Drops -) 1 drop OU HS [facility] Last Admin: 11/08/18 22:00 Dose: 1 drop Metoprolol Tartrate (Lopressor Injection -) 5 mg IVPUSH Q4H PRN PRN Reason: TACHYCARDIA Metoprolol Tartrate (Lopressor Injection -) 5 mg IVPUSH Q6H [facility] Last Admin: 11/09/18 08:08 Dose: 5 mg Mupirocin (Bactroban Ointment (For Decolonization) -) 1 applic NS BID [facility] Stop: 11/10/18 21:59 Last Admin: 11/09/18 09:42 Dose: 1 applic Pantoprazole Sodium (Protonix Iv) 40 mg IVPUSH DAILY [facility] Last Admin: 11/09/18 09:24 Dose: 40 mg Tobramycin/Dexamethasone (Tobradex Ophthalmic Suspension -) 1 drop OU BID [facility] Last Admin: 11/09/18 09:43 Dose: 1 drop ASSESSMENT AND PLAN: Chronic Respiratory Failure Pneumonia Small Bowel Obstruction Severe Sepsis Acute Kidney Injury Lactic Acidosis +Troponins likely Demand Ischemia Atrial Fibrillation COPD HTN Parkinsons Disease - antibiotics per ID - f/u cultures - IVF boluses as needed - monitor urine output, creatinine - trend lactate - for CT A/P today - NGT to ILWS - surgery f/u - rate control - continue anticoagulation if no intervention planned - holding feeds - DVT/GI prophylaxis - continue ICU monitoring critical care time spent in reviewing chart, evaluating patient and formulating plan 35 min
[2018-11-09 11:09] LABS: ARTERIAL BLD GAS O2 SATURATION 92.2 % (95-98); ARTERIAL BLOOD GAS BASE EXCESS -4.5 meq/l (-2-2); ARTERIAL BLOOD GAS PCO2 39.8 mmHg (35-45); ARTERIAL BLOOD GAS pH 7.33 (7.35-7.45)
[2018-11-09 11:11] LABS: ALLENS TEST POSITIVE
[2018-11-09] MEDS: DEXTROSE 5%-NORMAL SALINE 1,000 ML IV SCH (11:56)
--- NOTE | 2018-11-09 11:57 | PN ---
Physical Exam: SUBJECTIVE: Patient seen and examined at bedside. pt is non verbal. pt is awake and opens eyes when name is called. OBJECTIVE: Vital Signs Period Temp Pulse Resp BP Sys/Cope Pulse Ox Last 24 Hr 97.4 F-98.4 F 84-112 24-41 68-138/40-93 86-98 GENERAL: The patient is awake, alert. Pt is trached to vent EYES: pupils sluggish, L>R. sclera anicteric, conjunctiva clear. No ptosis. LUNGS: Breath sounds decreased. rhonchi bilaterally HEART: irregular rate and rhythm, S1, S2 without murmur, rub or gallop. ABDOMEN: Soft, tender to palpation RUQ, nondistended, normoactive bowel sounds, no guarding, no masses. PEG in place EXTREMITIES: 2+ pulses, warm, well-perfused, no edema. SKIN: Warm, dry, normal turgor, no rashes or lesions noted Laboratory Last Values WBC 18.4 K/mm3 (4.0-10.0) H 11/09/18 05:25 RBC 3.04 M/mm3 (4.00-5.60) L 11/09/18 05:25 Hgb 8.9 GM/dL (11.7-16.9) L 11/09/18 05:25 Hct 27.8 % (35.4-49) L 11/09/18 05:25 MCV 91.5 fl (80-96) 11/09/18 05:25 MCH 29.2 pg (25.7-33.7) 11/09/18 05:25 MCHC 31.9 g/dl (32.0-35.9) L 11/09/18 05:25 RDW 22.7 % (11.9-15.9) H 11/09/18 05:25 Plt Count 274 K/MM3 (134-434) 11/09/18 05:25 MPV 7.7 fl (7.5-11.1) 11/09/18 05:25 Absolute Neuts (auto) 16.7 K/mm3 (1.5-8.0) H 11/09/18 05:25 Neutrophils % 90.8 % (42.8-82.8) H 11/09/18 05:25 Neutrophils % (Manual) 82.8 % (42.8-82.8) 11/07/18 05:30 Band Neutrophils % 0.0 % 11/07/18 05:30 Lymphocytes % 1.9 % (8-40) L D 11/09/18 05:25 Lymphocytes % (Manual) 9.1 % (8-40) D 11/07/18 05:30 Monocytes % 7.0 % (3.8-10.2) 11/09/18 05:25 Monocytes % (Manual) 6 % (3.8-10.2) D 11/07/18 05:30 Eosinophils % 0.2 % (0-4.5) 11/09/18 05:25 Eosinophils % (Manual) 2.0 % (0-4.5) D 11/07/18 05:30 Basophils % 0.1 % (0-2.0) 11/09/18 05:25 Basophils % (Manual) 0.0 % (0-2.0) 11/07/18 05:30 Myelocytes % (Man) 0 % (0-2) 11/07/18 05:30 Promyelocytes % (Man) 0 % (0-2) 11/07/18 05:30 Blast Cells % (Manual) 0 % (0-0) 11/07/18 05:30 Nucleated RBC % 0 % (0-0) 11/09/18 05:25 Metamyelocytes 0 % (0-2) 11/07/18 05:30 Hypochromia 0 11/07/18 05:30 Platelet Estimate Normal 11/07/18 05:30 Platelet Comment Present 11/05/18 14:37 Spherocytes 1+ 11/05/18 14:37 Tear Drop Cells 1+ 11/05/18 14:37 Ovalocytes 1+ 11/05/18 14:37 Acanthocytes (Spur) 1+ 11/05/18 14:37 Rouleaux 3+ 11/07/18 05:30 PT with INR 26.40 SEC (9.7-13.0) H 11/06/18 05:30 INR 2.22 (0.83-1.09) H 11/06/18 05:30 PTT (Actin FS) 85.1 SECONDS (25.2-36.5) H 11/09/18 05:25 Anticoagulation Therapy No Result Required. 11/08/18 07:00 Puncture Site Right radial 11/09/18 11:00 ABG pH 7.33 (7.35-7.45) L 11/09/18 11:00 ABG pCO2 at Pt Temp 39.8 mmHg (35-45) 11/09/18 11:00 ABG pO2 at Pt Temp 73.0 mmHg (80-100) L 11/09/18 11:00 ABG HCO3 20.5 mmol/L (22-27) L 11/09/18 11:00 ABG O2 Sat (Measured) 92.2 % (95-98) L 11/09/18 11:00 ABG O2 Content 10.1 % vol 11/09/18 11:00 ABG Base Excess -4.5 meq/l (-2-2) L 11/09/18 11:00 Santiago Test Positive 11/09/18 11:00 VBG pH 7.49 (7.31-7.41) H 11/05/18 14:40 POC VBG pCO2 34.4 mmHg (38-52) L 11/05/18 14:40 POC VBG pO2 54.9 mmHg (28-48) H 11/05/18 14:40 VBG HCO3 26.1 mmol/L (23-29) 11/05/18 14:40 VBG O2 Sat (Stacey) 86.9 % (70-80) H 11/05/18 14:40 VBG Base Excess 3.6 meq/l (-2-2) H 11/05/18 14:40 Carboxyhemoglobin 1.6 % (0-2) 11/05/18 20:05 Methemoglobin < 1.0 % (0-2) 11/05/18 20:05 O2 Delivery Device Vent 11/09/18 11:00 Oxygen Flow Rate 40% 11/09/18 11:00 Vent Mode A/c 11/09/18 11:00 Vent Rate 12 11/09/18 11:00 Mechanical Rate Yes 11/09/18 11:00 PEEP 5.0 cmH2O 11/09/18 11:00 Pressure Support Vent 450 11/09/18 11:00 Sodium 142 mmol/L (136-145) 11/09/18 05:25 Potassium 4.1 mmol/L (3.5-5.1) 11/09/18 05:25 Chloride 102 mmol/L (98-107) 11/09/18 05:25 Carbon Dioxide 24 mmol/L (21-32) 11/09/18 05:25 Anion Gap 16 MMOL/L (8-16) 11/09/18 05:25 BUN 68.0 mg/dL (7-18) H 11/09/18 05:25 Creatinine 2.7 mg/dL (0.55-1.3) H 11/09/18 05:25 Est GFR (CKD-EPI)AfAm 23.33 11/09/18 05:25 Est GFR (CKD-EPI)NonAf 20.13 11/09/18 05:25 POC Glucometer 144 UNITS (80-120) 11/09/18 05:54 Random Glucose 153 mg/dL (74-106) H 11/09/18 05:25 Lactic Acid 3.8 mmol/L (0.4-2.0) H* 11/09/18 05:25 Calcium 7.6 mg/dL (8.5-10.1) L 11/09/18 05:25 Phosphorus 7.0 mg/dL (2.5-4.9) H 11/09/18 05:25 Magnesium 2.7 mg/dL (1.8-2.4) H 11/09/18 05:25 Total Bilirubin 2.2 mg/dL (0.2-1) H 11/09/18 05:25 Direct Bilirubin 0.8 mg/dL (0.0-0.2) H 11/07/18 05:30 AST 216 U/L (15-37) H 11/09/18 05:25 ALT 89 U/L (13-61) H 11/09/18 05:25 Alkaline Phosphatase 127 U/L (45-117) H 11/09/18 05:25 Troponin I 0.05 ng/ml (0.00-0.05) 11/06/18 05:30 B-Natriuretic Peptide 29948.0 pg/ml (5-450) H 11/05/18 14:45 Total Protein 5.8 g/dl (6.4-8.2) L 11/09/18 05:25 Albumin 1.9 g/dl (3.4-5.0) L 11/09/18 05:25 Urine Color Dk yellow 11/05/18 15:00 Urine Appearance Turbid 11/05/18 15:00 Urine pH 5.0 (5.0-8.0) 11/05/18 15:00 Ur Specific [place] 1.018 (1.010-1.035) 11/05/18 15:00 Urine Protein 1+ (NEGATIVE) H 11/05/18 15:00 Urine Glucose (UA) Negative (NEGATIVE) 11/05/18 15:00 Urine Ketones Trace (NEGATIVE) H 11/05/18 15:00 Urine Blood 3+ (NEGATIVE) H 11/05/18 15:00 Urine Nitrite Negative (NEGATIVE) 11/05/18 15:00 Urine Bilirubin 1+ (NEGATIVE) H 11/05/18 15:00 Urine Urobilinogen 1.0 mg/dL (0.2-1.0) 11/05/18 15:00 Ur Leukocyte Esterase 3+ (NEGATIVE) H 11/05/18 15:00 Urine WBC (Auto) 161 /hpf (0-5) 11/05/18 15:00 Urine RBC (Auto) 103.1 /hpf (0-4) 11/05/18 15:00 Urine Casts (Auto) 75 /lpf (0-8) 11/05/18 15:00 U Pathogenic Cast Auto Granular cast /lpf (NEGATIVE) 11/05/18 15:00 U Epithel Cells (Auto) 1.5 /HPF (0-5/HPF) 11/05/18 15:00 Urine Bacteria (Auto) 7 /hpf (NEGATIVE) 11/05/18 15:00 Urine Yeast (Auto) Present (NEGATIVE) 11/05/18 15:00 Current Medications Albuterol/Ipratropium (Duoneb -) 1 amp NEB RQID LUCRECIA Last Admin: 11/08/18 20:29 Dose: 1 amp Amantadine HCl (Symmetrel Oral Solution -) 100 mg GT BID LUCRECIA Last Admin: 11/09/18 09:43 Dose: Not Given Carbidopa/Levodopa (Sinemet 25/250 -) 2 each GT TID LUCRECIA Last Admin: 11/09/18 06:25 Dose: Not Given Chlorhexidine Gluconate (Hibiclens For Decolonization -) 1 applic TP HS LUCRECIA Last Admin: 11/08/18 21:20 Dose: 1 applic Collagenase (Santyl -) 1 applic TP DAILY LCURECIA; Protocol Last Admin: 11/09/18 09:41 Dose: 1 applic Homatropine HBr (Isopto Homatropine 5% -) 1 drop OD QID LUCRECIA Last Admin: 11/09/18 09:42 Dose: 1 drop Hydromorphone HCl (Dilaudid Vial -) 0.5 mg IVPUSH Q4H PRN PRN Reason: PAIN LEVEL 4 - 6 Dextrose/Sodium Chloride (D5-Ns -) 1,000 mls @ 100 mls/hr IV ASDIR LUCRECIA Last Admin: 11/08/18 12:43 Dose: 100 mls/hr Ceftazidime/Avibactam 1.25 gm/ (Dextrose) 100 mls @ 50 mls/hr IVPB Q8H-IV LUCRECIA; Protocol Last Admin: 11/09/18 09:23 Dose: 50 mls/hr Metronidazole (Flagyl 500mg Premixed Ivpb -) 500 mg in 100 mls @ 100 mls/hr IVPB Q8H-IV LUCRECIA Last Admin: 11/09/18 09:23 Dose: 100 mls/hr Heparin Sodium (Porcine) 25, (000 unit/ Sodium Chloride) 500 mls @ 20 mls/hr IV TITR LUCRECIA; Protocol Last Titration: 11/09/18 09:51 Dose: 900 unit/hr, 18 mls/hr Latanoprost (Xalatan 0.005% Eye Drops -) 1 drop OU HS [facility] Last Admin: 11/08/18 22:00 Dose: 1 drop Metoprolol Tartrate (Lopressor Injection -) 5 mg IVPUSH Q4H PRN PRN Reason: TACHYCARDIA Metoprolol Tartrate (Lopressor Injection -) 5 mg IVPUSH Q6H [facility] Last Admin: 11/09/18 08:08 Dose: 5 mg Mupirocin (Bactroban Ointment (For Decolonization) -) 1 applic NS BID [facility] Stop: 11/10/18 21:59 Last Admin: 11/09/18 09:42 Dose: 1 applic Pantoprazole Sodium (Protonix Iv) 40 mg IVPUSH DAILY [facility] Last Admin: 11/09/18 09:24 Dose: 40 mg Tobramycin/Dexamethasone (Tobradex Ophthalmic Suspension -) 1 drop OU BID [facility] Last Admin: 11/09/18 09:43 Dose: 1 drop ASSESSMENT/PLAN: 88 yo M w/ PMH Parkinson's, COPD, HTN, CHF, Afib, respiratory failure ( trached to vent). Pt has PEG. Pt presented to the ED for abdominal distention. Pt is admitted for Severe Sepsis 2/2 Pneumonia and possible SBO. ARDS Chronic Respiratory Failure SBO Afib HTN CHF Neuro: -Awake, alert -pt has been non verbal since he had trach, baseline confirmed with son -hold sedatives -c/w sinemet 25/250 -pain mgmt w/ dilauded 0.5 mg Cardiology -Afib -HTN -HFpEF -c/w beta rebecca -hold antihypertensives as pt is hypotensive today -D50-NS bolus -d/c lasix -[facility] -Echo EF 65-70 %, LV fxn normal, mild , moderate AR , TR Respiratory -Acute on Chronic respiratory failure -ARDS -Pneumonia -Trached to vent -Vent settings changed : A/C mode Rate 12, TV 450, Peak flow 60, PEEP 5, %O2 40 -CXRay worsening R sided infiltrate -sputum culture growing Klebsiella pneumoniae, Pseudomonas Aerginosa, Proteus. Sensitivities reviewed RENAL - FR[place], worsening Cr 2.7 - monitor urine output. Urine output minimal today -bladder u/s GASTROINTESTINAL -SBO vs ileus - mild nonspecific CBD dilation -Abdominal XR reviewed, awaiting CT abdomen -NGT decompression -NPO -Gi recommendations appreciated -possible MRCP once optimized -elevated LFTs likely 2/2 sepsis , continue to trend INFECTIOUS DISEASE -Sepsis likely 2/2 pneumonia -lactate downtrending 10.8-->3.8 -leukocytosis 14.7-->18.4 -continue to trend lactic acid -Dr. Vogt consulted, recs appreciated -vanc level, DC vancomycin -flagyl as per ID recs -c/w Ceftazidime/Avibactam HEMATOLOGY - no acute issues PSYCHIATRIC - no acute events F/E/N -D50-NS @ 100 in the setting of [place] -continue to monitor electrolytes and replete as necessary -NPO PROPHYLAXIS - SCDs CODE - DNR -Case discussed with family on the phone -Paliative Care consult to discuss goals of care with family Visit type - Emergency Visit Emergency Visit: No - New Patient This patient is new to me today: No - Critical Care Critical Care patient: Yes Total Critical Care Time (in minutes): 36 Critical Care Statement: The care of this patient involved high complexity decision making to prevent further life threatening deterioration of the patient 's condition and/or to evaluate & treat vital organ system(s) failure or risk of failure. - Discharge Referral Referred to [facility] Med [facility] No ATTENDING PHYSICIAN STATEMENT I saw and evaluated the patient. I reviewed the resident's note and discussed the case with the resident. I agree with the resident's findings and plan as documented. SUBJECTIVE: OBJECTIVE: ASSESSMENT AND PLAN:
--- NOTE | 2018-11-09 13:43 | PN ---
Progress Note (short form) - Note Progress Note: intubated Vital Signs Period Temp Pulse Resp BP Sys/Cope Pulse Ox Last 24 Hr 97.4 F-98.4 F 84-112 24-41 68-138/40-93 86-98 trach to vent-fiO2 40% cor-rrr lungs decreased bs at bases abd soft, +GT ext no edema galarza CBC, BMP 11/09/18 05:25 11/09/18 05:25 Microbiology 11/06/18 13:00 Sputum - Endotrachea Suction/Ventilator Gram Stain - Final 11/06/18 13:00 Sputum - Endotrachea Suction/Ventilator Sputum Culture - Final Klebsiella Pneumoniae - Esbl Pseudomonas Aeruginosa Proteus Mirabilus - Esbl Produ 11/05/18 15:00 Blood - Peripheral Venous Blood Culture - Preliminary NO GROWTH OBTAINED AFTER 72 HOURS, INCUBATION TO CONTINUE FOR 2 DAYS. 11/05/18 14:30 Blood - Peripheral Venous Blood Culture - Preliminary NO GROWTH OBTAINED AFTER 72 HOURS, INCUBATION TO CONTINUE FOR 2 DAYS. 11/06/18 18:00 Urine For Antigen Detection Legionella Antigen - Final 11/06/18 18:00 Urine For Antigen Detection Streptococcus pneumoniae Antigen (M - Final 11/05/18 15:00 Urine - Urine - Catheterized Urine Culture - Final Yeast Like Organism meds reviewed a/p 3rd icu admission doing poorly-hypotensive with poor urine output, severe sepsis ?source cxray with bilateral infiltrates- ?fluid, ?pneumonia am not sure sputum isolates represent pneumonia but he is colonized with highly resistant GNR ct scan just done, results pending repeat blood cultures sent continue ceftazidime/avibactam and flagyl 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
[2018-11-09] MEDS: HEPARIN - 25,000 UNIT in SODIUM CHLORIDE 495 ML IV SCH ×2 (14:18→19:54)
--- NOTE | 2018-11-09 19:37 | PN ---
Physical Exam: SUBJECTIVE: Patient seen and examined. Non-verbal. Breathing is becoming more tachypneic. OBJECTIVE: Vital Signs Period Temp Pulse Resp BP Sys/Cope Pulse Ox Last 24 Hr 97.4 F-98.4 F 98-112 24-41 68-138/40-93 86-98 GENERAL: The patient is awake and responds to verbal and painful stimuli, on vent HEAD: Normal with no signs of trauma. EYES: pupils equally reactive to light, follows verbal stimuli, sclera anicteric , conjunctiva clear. No ptosis. ENT: Ears normal, nares patent, moist mucous membranes, NG tube NECK: Trach in place, limited ROM LUNGS: Breath sounds equal, rhonchi bilaterally, abdominal breathing HEART: Regular rate and irregular rhythm, S1, S2 without murmur, rub or gallop. ABDOMEN: Soft, tender to palpation in lower abdomen, mild distention, BS left side>right side, gastric tube in place EXTREMITIES: edematous hands, +1 pitting edema of feet warm to touch NEUROLOGICAL: responds to tactile stimuli, unable to assess further PSYCH: unable to assess SKIN: Warm, dry, ecchymosis noted on both hands Laboratory Results - last 24 hr 11/08/18 11/08/18 11/08/18 21:09 22:00 22:30 WBC RBC Hgb Hct MCV MCH MCHC RDW Plt Count MPV Absolute Neuts (auto) Neutrophils % Lymphocytes % Monocytes % Eosinophils % Basophils % Nucleated RBC % PTT (Actin FS) 85.2 H Puncture Site ABG pH ABG pCO2 at Pt Temp ABG pO2 at Pt Temp ABG HCO3 ABG O2 Sat (Measured) ABG O2 Content ABG Base Excess Santiago Test O2 Delivery Device Oxygen Flow Rate Vent Mode Vent Rate Mechanical Rate PEEP Pressure Support Vent Sodium Potassium Chloride Carbon Dioxide Anion Gap BUN Creatinine Est GFR (CKD-EPI)AfAm Est GFR (CKD-EPI)NonAf POC Glucometer 126 Random Glucose Lactic Acid Cancelled Calcium Phosphorus Magnesium Total Bilirubin AST ALT Alkaline Phosphatase Total Protein Albumin Vancomycin Pre-Dose 11/09/18 11/09/18 11/09/18 00:05 05:25 05:25 WBC 18.4 H RBC 3.04 L Hgb 8.9 L Hct 27.8 L MCV 91.5 MCH 29.2 MCHC 31.9 L RDW 22.7 H Plt Count 274 MPV 7.7 Absolute Neuts (auto) 16.7 H Neutrophils % 90.8 H Lymphocytes % 1.9 L D Monocytes % 7.0 Eosinophils % 0.2 Basophils % 0.1 Nucleated RBC % 0 PTT (Actin FS) 85.1 H Puncture Site ABG pH ABG pCO2 at Pt Temp ABG pO2 at Pt Temp ABG HCO3 ABG O2 Sat (Measured) ABG O2 Content ABG Base Excess Santiago Test O2 Delivery Device Oxygen Flow Rate Vent Mode Vent Rate Mechanical Rate PEEP Pressure Support Vent Sodium Potassium Chloride Carbon Dioxide Anion Gap BUN Creatinine Est GFR (CKD-EPI)AfAm Est GFR (CKD-EPI)NonAf POC Glucometer Random Glucose Lactic Acid 6.3 H* Calcium Phosphorus Magnesium Total Bilirubin AST ALT Alkaline Phosphatase Total Protein Albumin Vancomycin Pre-Dose 11/09/18 11/09/18 11/09/18 05:25 05:25 05:54 WBC RBC Hgb Hct MCV MCH MCHC RDW Plt Count MPV Absolute Neuts (auto) Neutrophils % Lymphocytes % Monocytes % Eosinophils % Basophils % Nucleated RBC % PTT (Actin FS) Puncture Site ABG pH ABG pCO2 at Pt Temp ABG pO2 at Pt Temp ABG HCO3 ABG O2 Sat (Measured) ABG O2 Content ABG Base Excess Santiago Test O2 Delivery Device Oxygen Flow Rate Vent Mode Vent Rate Mechanical Rate PEEP Pressure Support Vent Sodium 142 Potassium 4.1 Chloride 102 Carbon Dioxide 24 Anion Gap 16 BUN 68.0 H Creatinine 2.7 H Est GFR (CKD-EPI)AfAm 23.33 Est GFR (CKD-EPI)NonAf 20.13 POC Glucometer 144 Random Glucose 153 H Lactic Acid 3.8 H* Calcium 7.6 L Phosphorus 7.0 H Magnesium 2.7 H Total Bilirubin 2.2 H AST 216 H ALT 89 H Alkaline Phosphatase 127 H Total Protein 5.8 L Albumin 1.9 L Vancomycin Pre-Dose 11/09/18 11/09/18 11/09/18 11:00 12:04 15:00 WBC RBC Hgb Hct MCV MCH MCHC RDW Plt Count MPV Absolute Neuts (auto) Neutrophils % Lymphocytes % Monocytes % Eosinophils % Basophils % Nucleated RBC % PTT (Actin FS) Puncture Site Right radial ABG pH 7.33 L ABG pCO2 at Pt Temp 39.8 ABG pO2 at Pt Temp 73.0 L ABG HCO3 20.5 L ABG O2 Sat (Measured) 92.2 L ABG O2 Content 10.1 ABG Base Excess -4.5 L Santiago Test Positive O2 Delivery Device Vent Oxygen Flow Rate 40% Vent Mode A/c Vent Rate 12 Mechanical Rate Yes PEEP 5.0 Pressure Support Vent 450 Sodium Potassium Chloride Carbon Dioxide Anion Gap BUN Creatinine Est GFR (CKD-EPI)AfAm Est GFR (CKD-EPI)NonAf POC Glucometer 154 Random Glucose Lactic Acid Calcium Phosphorus Magnesium Total Bilirubin AST ALT Alkaline Phosphatase Total Protein Albumin Vancomycin Pre-Dose 33.6 H* 11/09/18 16:36 WBC RBC Hgb Hct MCV MCH MCHC RDW Plt Count MPV Absolute Neuts (auto) Neutrophils % Lymphocytes % Monocytes % Eosinophils % Basophils % Nucleated RBC % PTT (Actin FS) Puncture Site ABG pH ABG pCO2 at Pt Temp ABG pO2 at Pt Temp ABG HCO3 ABG O2 Sat (Measured) ABG O2 Content ABG Base Excess Santiago Test O2 Delivery Device Oxygen Flow Rate Vent Mode Vent Rate Mechanical Rate PEEP Pressure Support Vent Sodium Potassium Chloride Carbon Dioxide Anion Gap BUN Creatinine Est GFR (CKD-EPI)AfAm Est GFR (CKD-EPI)NonAf POC Glucometer 147 Random Glucose Lactic Acid Calcium Phosphorus Magnesium Total Bilirubin AST ALT Alkaline Phosphatase Total Protein Albumin Vancomycin Pre-Dose Active Medications Generic Name Dose Route Start Last Admin Trade Name Freq PRN Reason Stop Dose Admin Albuterol/Ipratropium 1 amp 11/06/18 08:00 11/09/18 17:03 Duoneb - NEB 1 amp RQID LUCRECIA Administration Amantadine HCl 100 mg 11/06/18 10:00 11/09/18 09:43 Symmetrel Oral Solution - GT Not Given BID LUCRECIA Carbidopa/Levodopa 2 each 11/05/18 22:45 11/09/18 14:15 Sinemet 25/250 - GT Not Given TID LUCRECIA Chlorhexidine Gluconate 1 applic 11/05/18 22:00 11/08/18 21:20 Hibiclens For Decolonization - TP 1 applic HS LUCRECIA Administration Collagenase 1 applic 11/06/18 12:30 11/09/18 09:41 Santyl - TP 1 applic DAILY LUCRECIA Administration Protocol Homatropine HBr 1 drop 11/06/18 10:00 11/09/18 17:08 Isopto Homatropine 5% - OD 1 drop QID LUCRECIA Administration Hydromorphone HCl 0.5 mg 11/09/18 10:38 Dilaudid Vial - IVPUSH Q4H PRN PAIN LEVEL 4 - 6 Dextrose/Sodium Chloride 1,000 mls @ 100 mls/hr 11/08/18 11:30 11/09/18 11:56 D5-Ns - IV Not Given ASDIR LUCRECIA Ceftazidime/Avibactam 1.25 gm/ 100 mls @ 50 mls/hr 11/08/18 15:15 11/09/18 17 :08 Dextrose IVPB 50 mls/hr Q8H-IV LUCRECIA Administration Protocol Metronidazole 500 mg in 100 mls @ 100 mls/hr 11/08/18 15:15 11/09/18 17:08 Flagyl 500mg Premixed Ivpb - IVPB 100 mls/hr Q8H-IV LUCRECIA Administration Heparin Sodium (Porcine) 25, 500 mls @ 20 mls/hr 11/08/18 16:15 11/09/18 14: 18 000 unit/ Sodium Chloride IV 900 unit/hr TITR LUCRECIA 18 mls/hr Administration Protocol 1,000 UNIT/HR Latanoprost 1 drop 11/06/18 22:00 11/08/18 22:00 Xalatan 0.005% Eye Drops - OU 1 drop HS [facility]CRECIA Administration Metoprolol Tartrate 5 mg 11/06/18 13:04 Lopressor Injection - IVPUSH Q4H PRN TACHYCARDIA Metoprolol Tartrate 5 mg 11/06/18 13:15 11/09/18 14:15 Lopressor Injection - IVPUSH Not Given Q6H LUCRECIA Mupirocin 1 applic 11/05/18 22:00 11/09/18 09:42 Bactroban Ointment (For Decolonization) - NS 11/10/18 21:59 1 applic BID LUCRECIA Administration Pantoprazole Sodium 40 mg 11/06/18 10:45 11/09/18 09:24 Protonix Iv IVPUSH 40 mg DAILY [facility]CRECIA Administration Tobramycin/Dexamethasone 1 drop 11/06/18 10:00 11/09/18 09:43 Tobradex Ophthalmic Suspension - OU 1 drop BID LUCRECIA Administration ASSESSMENT/PLAN: Mr. Smalls is an 88yo male with Parkinson's, COPD, CHF, HTN, a-fib on Eliquis, respiratory failure with trach and PEG, hx of prostate cancer who presents for abdominal distention and fevers. He was found to be septic 2/2 pneumonia, as well as SBO, and CBD dilation. #sepsis 2/2 PNA -pulmonary exam not significantly changed from yesterday -leukocytosis worsening 14.7-->18.4 -sputum culture: proteus, pseudomonas, and klebsiella -blood cultures pending, no growth to date -CXR- congestion stable from yesterday -CT abd/pelvis showed mod to large pleural effusion on right, moderate on left -continue Ceftazidime/Avibactam and Flagyl -ID following -CBC -palliative care consult #CHF -echo EF 65-70%, no LVH, mild RA dilation, moderate TR, moderate AR, no pericardial effusion -EKG 11/08/18: irregular rhythm, HR 98, QTc 589 -monitor QTc and medications which could increase it -Mg 2.5 yesterday, recheck because prolonged QTc -continue to monitor with CXR -d/c Lasix while on D5W -CMP #SBO, resolved -abdominal tender to palpation with hypoactive bowel sounds in all quadrants -abdominal CT- distended gallbladder, no evidence of SBO, small bowel loops no longer dilated, no diverticulitis, fecal residue rectosigmoid junction -monitor for constipation, consider tap water enema if pt becomes distended or more uncomfortable -pain control -NPO #hypoglycemia BG 17 yesterday morning, 110s-150s since started D5W -D5W 100ml/hr -BGM -SSI #CBD dilation -finding on CT abd 11/05. Planned MRCP but not qualifying now. -GI following -CMP #a-fib on Eliquis at admission rate-controlled -continue metoprolol -continue heparin -PTT monitoring #[place] Cr this admission 1.5-->2.7 -continue fluids and closely monitor for effects on other organs #HTN well-controlled, currently on metoprolol -frequent VS checks #COPD -duo-neb PRN #Parkinson's -holding home meds FEN D5W for hypoglycemia monitor lytes tube feedings held DVT Ppe herparin Visit type - Emergency Visit Emergency Visit: Yes ED Registration Date: 11/05/18 Care time: The patient presented to the Emergency Department on the above date and was hospitalized for further evaluation of their emergent condition. - New Patient This patient is new to me today: No - Critical Care Critical Care patient: Yes Total Critical Care Time (in minutes): 35 Critical Care Statement: The care of this patient involved high complexity decision making to prevent further life threatening deterioration of the patient 's condition and/or to evaluate & treat vital organ system(s) failure or risk of failure. - Discharge Referral Referred to [facility] Med [facility] No ATTENDING PHYSICIAN STATEMENT I saw and evaluated the patient. I reviewed the resident's note and discussed the case with the resident. I agree with the resident's findings and plan as documented. SUBJECTIVE: OBJECTIVE: ASSESSMENT AND PLAN:
--- NOTE | 2018-11-09 19:48 | PN ---
Teaching Attending Note Name of Resident: Renate Montilla ATTENDING PHYSICIAN STATEMENT I saw and evaluated the patient. I reviewed the resident's note and discussed the case with the resident. I agree with the resident's findings and plan as documented. SUBJECTIVE: Patient in ICU on trach. OBJECTIVE: Vital Signs Temperature 98 F 11/09/18 17:11 Pulse Rate 112 H 11/09/18 18:00 Respiratory Rate 27 H 11/09/18 18:00 Blood Pressure 110/71 11/09/18 18:00 O2 Sat by Pulse Oximetry (%) 98 11/09/18 08:38 GENERAL: The patient is in icu on the trach, responds to pain stimuli HEAD: Normal with no signs of trauma. EYES: reacive , sclera anicteric, conjunctiva clear. ENT: Ears normal, oropharynx clear without exudates, moist mucous membranes. NECK: positive for trach. supple. LUNGS: decreased Breath sounds bl, positive for rhonchi, crackles, no accessory muscle use. HEART:tachycarduc ,S1, S2 positive, elizabet 2/6 , no rub or gallop. ABDOMEN: Soft, nontender, nondistended, normoactive bowel sounds, no guarding, no rebound, no hepatosplenomegaly, no masses. EXTREMITIES: 2+ pulses, warm, well-perfused, edema 1 plus NEUROLOGICAL: Cranial nerves II through XII grossly intact. gait not observed. PSYCH: unable to access on trach. SKIN: Warm, dry, normal turgor, CBCD WBC 18.4 K/mm3 (4.0-10.0) H 11/09/18 05:25 RBC 3.04 M/mm3 (4.00-5.60) L 11/09/18 05:25 Hgb 8.9 GM/dL (11.7-16.9) L 11/09/18 05:25 Hct 27.8 % (35.4-49) L 11/09/18 05:25 MCV 91.5 fl (80-96) 11/09/18 05:25 MCHC 31.9 g/dl (32.0-35.9) L 11/09/18 05:25 RDW 22.7 % (11.9-15.9) H 11/09/18 05:25 Plt Count 274 K/MM3 (134-434) 11/09/18 05:25 MPV 7.7 fl (7.5-11.1) 11/09/18 05:25 CMP Sodium 142 mmol/L (136-145) 11/09/18 05:25 Potassium 4.1 mmol/L (3.5-5.1) 11/09/18 05:25 Chloride 102 mmol/L (98-107) 11/09/18 05:25 Carbon Dioxide 24 mmol/L (21-32) 11/09/18 05:25 Anion Gap 16 MMOL/L (8-16) 11/09/18 05:25 BUN 68.0 mg/dL (7-18) H 11/09/18 05:25 Creatinine 2.7 mg/dL (0.55-1.3) H 11/09/18 05:25 Random Glucose 153 mg/dL (74-106) H 11/09/18 05:25 Calcium 7.6 mg/dL (8.5-10.1) L 11/09/18 05:25 Total Bilirubin 2.2 mg/dL (0.2-1) H 11/09/18 05:25 AST 216 U/L (15-37) H 11/09/18 05:25 ALT 89 U/L (13-61) H 11/09/18 05:25 Alkaline Phosphatase 127 U/L (45-117) H 11/09/18 05:25 Total Protein 5.8 g/dl (6.4-8.2) L 11/09/18 05:25 Albumin 1.9 g/dl (3.4-5.0) L 11/09/18 05:25 CARDIAC ENZYMES Troponin I 0.05 ng/ml (0.00-0.05) 11/06/18 05:30 Current Medications Generic Name Dose Route Start Last Admin Trade Name Freq PRN Reason Stop Dose Admin Albuterol/Ipratropium 1 amp 11/06/18 08:00 11/09/18 17:03 Duoneb - NEB 1 amp RQID [facility] Administration Amantadine HCl 100 mg 11/06/18 10:00 11/09/18 09:43 Symmetrel Oral Solution - GT Not Given BID [facility] Carbidopa/Levodopa 2 each 11/05/18 22:45 11/09/18 14:15 Sinemet 25/250 - GT Not Given TID [facility] Chlorhexidine Gluconate 1 applic 08/23/19 22:00 11/08/18 21:20 Hibiclens For Decolonization - TP 1 applic HS [facility] Administration Collagenase 1 applic 11/06/18 12:30 11/09/18 09:41 Santyl - TP 1 applic DAILY [facility] Administration Protocol Homatropine HBr 1 drop 11/06/18 10:00 11/09/18 17:08 Isopto Homatropine 5% - OD 1 drop QID [facility] Administration Hydromorphone HCl 0.5 mg 11/09/18 10:38 Dilaudid Vial - IVPUSH Q4H PRN PAIN LEVEL 4 - 6 Dextrose/Sodium Chloride 1,000 mls @ 100 mls/hr 11/08/18 11:30 11/09/18 11:56 D5-Ns - IV Not Given ASDIR [facility] Ceftazidime/Avibactam 1.25 gm/ 100 mls @ 50 mls/hr 11/08/18 15:15 11/09/18 17 :08 Dextrose IVPB 50 mls/hr Q8H-IV [facility] Administration Protocol Metronidazole 500 mg in 100 mls @ 100 mls/hr 11/08/18 15:15 11/09/18 17:08 Flagyl 500mg Premixed Ivpb - IVPB 100 mls/hr Q8H-IV [facility] Administration Heparin Sodium (Porcine) 25, 500 mls @ 20 mls/hr 11/08/18 16:15 11/09/18 14: 18 000 unit/ Sodium Chloride IV 900 unit/hr TITR [facility] 18 mls/hr Administration Protocol 1,000 UNIT/HR Latanoprost 1 drop 11/06/18 22:00 11/08/18 22:00 Xalatan 0.005% Eye Drops - OU 1 drop HS [facility] Administration Metoprolol Tartrate 5 mg 11/06/18 13:04 Lopressor Injection - IVPUSH Q4H PRN T[facility]ARDIA Metoprolol Tartrate 5 mg 11/06/18 13:15 11/09/18 14:15 Lopressor Injection - IVPUSH Not Given Q6H [facility] Mupirocin 1 applic 11/05/18 22:00 11/09/18 09:42 Bactroban Ointment (For Decolonization) - NS 11/10/18 21:59 1 applic BID [facility] Administration Pantoprazole Sodium 40 mg 11/06/18 10:45 11/09/18 09:24 Protonix Iv IVPUSH 40 mg DAILY [facility] Administration Tobramycin/Dexamethasone 1 drop 11/06/18 10:00 11/09/18 09:43 Tobradex Ophthalmic Suspension - OU 1 drop BID [facility] Administration Home Medications Medication Instructions Recorded Acetaminophen [Tylenol] 650 mg GT QID PRN 11/05/18 Albuterol 2.5/Ipratropium 0.5 1 neb IH QID 11/05/18 [Duoneb -] Amantadine Oral Solution 100 mg GT BID 11/05/18 [Symmetrel Oral Solution -] Amiodarone HCl [Cordarone -] 200 mg GT DAILY 11/05/18 Apixaban [Eliquis -] 5 mg GT BID 11/05/18 Ascorbic Acid 500 mg GT DAILY 11/05/18 Carbidopa/Levodopa 25/250 [Sinemet 2 each PO TID 11/05/18 25/250 -] Docusate Liquid [Colace Liquid -] 100 mg GT DAILY 11/05/18 Famotidine 20 mg GT DAILY 11/05/18 Furosemide [Lasix -] 40 mg GT DAILY 11/05/18 Homatropine HBr 5% Ophth Soln 1 drop OD QID 11/05/18 [Isopto Homatropine] Latanoprost 0.005% Eye Drops 1 drop OU HS 11/05/18 [Xalatan 0.005% Eye Drops -] Metoprolol Tartrate [Lopressor -] 50 mg GT BID 11/05/18 Multivitamin [Multiple Vitamins] 15 ml GT DAILY 11/05/18 Polyethylene Glycol 3350 [Miralax 17 gm GT DAILY 11/05/18 (For Bowel Prep) -] Tobramycin/Dexamethasone [Tobradex 1 drop OU BID 11/05/18 Eye Drops] Zinc Sulfate [Zinc-220] 220 mg GT DAILY 11/05/18 Microbiology 11/08/18 17:00 Blood - Peripheral Venous Blood Culture - Preliminary NO GROWTH OBTAINED AFTER 24 HOURS, INCUBATION TO CONTINUE FOR 4 DAYS. 11/08/18 16:35 Blood - Peripheral Venous Blood Culture - Preliminary NO GROWTH OBTAINED AFTER 24 HOURS, INCUBATION TO CONTINUE FOR 4 DAYS. 11/05/18 15:00 Blood - Peripheral Venous Blood Culture - Preliminary NO GROWTH OBTAINED AFTER 96 HOURS, INCUBATION TO CONTINUE FOR 1 DAYS. 11/05/18 14:30 Blood - Peripheral Venous Blood Culture - Preliminary NO GROWTH OBTAINED AFTER 96 HOURS, INCUBATION TO CONTINUE FOR 1 DAYS. 11/06/18 13:00 Sputum - Endotrachea Suction/Ventilator Gram Stain - Final 11/06/18 13:00 Sputum - Endotrachea Suction/Ventilator Sputum Culture - Final Klebsiella Pneumoniae - Esbl Pseudomonas Aeruginosa Proteus Mirabilus - Esbl Produ 11/06/18 18:00 Urine For Antigen Detection Legionella Antigen - Final 11/06/18 18:00 Urine For Antigen Detection Streptococcus pneumoniae Antigen (M - Final 11/05/18 15:00 Urine - Urine - Catheterized Urine Culture - Final Yeast Like Organism ASSESSMENT AND PLAN: Patient is an 88yo M with PMHx of parkinson, COPD, HTN, Afib, chronic respiratory failure s/p trach and PEG presented to the Er with fevers and abdominal distention and found to be septic due to PNA and SBO with dilated CBD as well #Acute on chronic respiratory failure- s/p trach. vent dependent. management per ICU team #. Sepsis due to poly-microbial PNA-continue iv zosyn. iD ON THE CASE cont IVF. #.s/p SBO- repeat Ct of abdomen and pelvis , no further SBO, looks like fecal impaction # Dilated CBD- seen on imaging. elevated bilirubin. unstable for MRCP. U/s ordered. GI onboard # s/p hypoglycemia- due to prolonged NPO. on d5w IVF # Afib- rate improved. cont metoprolol IV Q6H and prn. cardio on the case # [place]- due to sepsis and dehydration. hydrate, avoid nephrotoxic agents, nephro on the case # unstageable buttock ulcer- visualized by RN not me # Tropinemia- due to demand from sepsis and tachycardia. peaked at 0.07 no need for ischemia eval here # Hx of Parkinsonism -hold oral agents at this time. re-start once able to take po # HTN- has been normotesnive. and currently hypotensive. hold all agents. IVF boluses prn. #. dsyphagia s/p PEG- hold TF at this time . DVT ppx- hep ggt . DNR
[2018-11-09] MEDS: CHLORHEXIDINE GLUCONATE 4% CLEANSER FOR DECOLONIZATION TP SCH (22:26)
[2018-11-09] MEDS: LATANOPROST 0.005% OPHTH SOLN 2.5ML BOTTLE OU SCH (22:27)
[2018-11-10] MEDS: METOPROLOL TARTRATE 5 MG/5 ML VIAL IVPUSH SCH ×4 (01:05→20:40)
[2018-11-10] MEDS: CEFTAZIDIME/AVIBACTAM 1.25 GM in DEXTROSE 5%-WATER - 100 ML IVPB SCH ×3 (01:06→18:43)
[2018-11-10 05:46] LABS: BASO % 0.1 % (0-2.0); EOS % 0.1 % (0-4.5); HEMATOCRIT 26.5 % (35.4-49); HEMOGLOBIN 8.5 GM/dL (11.7-16.9); LYMPH % 5.1 % (8-40); MCH 28.9 pg (25.7-33.7); MEAN CELL VOLUME 90.4 fl (80-96); MEAN PLT VOLUME 7.8 fl (7.5-11.1); MONO % 6.1 % (3.8-10.2); NEUT % 88.6 % (42.8-82.8); PLATELET COUNT 226 K/MM3 (134-434); RBC 2.93 M/mm3 (4.00-5.60); RDW 22.3 % (11.9-15.9); WHITE BLOOD COUNT 16.5 K/mm3 (4.0-10.0)
[2018-11-10] MEDS: CARBIDOPA/LEVODOPA 25/250 TABLET (FP) GT SCH ×3 (06:25→21:16)
[2018-11-10 06:34] LABS: MAGNESIUM 2.5 mg/dL (1.8-2.4); PHOSPHOROUS 5.7 mg/dL (2.5-4.9)
[2018-11-10] MEDS: ALBUTEROL SO4 2.5/IPRATROPIUM 0.5 INH SOL 3 ML VIAL.NEB. NEB SCH ×4 (08:29→19:49)
[2018-11-10 09:17] LABS: ALBUMIN 1.8 g/dl (3.4-5.0); BILIRUBIN,TOTAL 2.2 mg/dL (0.2-1); BLOOD UREA NITROGEN 72.2 mg/dL (7-18); CALCIUM 7.9 mg/dL (8.5-10.1); POTASSIUM 3.5 mmol/L (3.5-5.1); TOT PROT 5.3 g/dl (6.4-8.2)
[2018-11-10] MEDS ORDERED: PT OWN MED DRAWER 7, Y5N ONE ×2 (09:26→10:42)
[2018-11-10] MEDS: PANTOPRAZOLE SODIUM 40 MG VIAL IVPUSH SCH (09:32)
[2018-11-10] MEDS: MUPIROCIN 2% TOPICAL OINTMENT FOR DECOLONIZATION NS SCH (09:32)
[2018-11-10] MEDS: COLLAGENASE CLOSTRIDIUM HIST. 30 GRAMS TUBE TP SCH (09:32)
[2018-11-10] MEDS: AMANTADINE HCL 100MG/10 ML UNIT DOSE CUPS GT SCH ×2 (09:33→21:17)
[2018-11-10] MEDS: [UNRECOGNIZED DRUG - OTHER] OD SCH ×4 (09:47→21:16)
[2018-11-10] MEDS: TOBRA 0.3%/DEXAMETH 0.1% OPHTHALMIC SUSP 2.5 ML BTL OU SCH ×2 (09:47→21:17)
--- NOTE | 2018-11-10 10:08 | PN ---
Progress Note (short form) - Note Progress Note: intubated Vital Signs Period Temp Pulse Resp BP Sys/Cope Pulse Ox Last 24 Hr 97.9 F-98.9 F 98-117 25-36 71-145/45-91 98 cor-rrr lungs decreased bs at bases abd soft,nt ext no edema CBC, BMP 11/10/18 05:05 11/10/18 05:05 Microbiology 11/08/18 17:00 Blood - Peripheral Venous Blood Culture - Preliminary NO GROWTH OBTAINED AFTER 24 HOURS, INCUBATION TO CONTINUE FOR 4 DAYS. 11/08/18 16:35 Blood - Peripheral Venous Blood Culture - Preliminary NO GROWTH OBTAINED AFTER 24 HOURS, INCUBATION TO CONTINUE FOR 4 DAYS. 11/05/18 15:00 Blood - Peripheral Venous Blood Culture - Preliminary NO GROWTH OBTAINED AFTER 96 HOURS, INCUBATION TO CONTINUE FOR 1 DAYS. 11/05/18 14:30 Blood - Peripheral Venous Blood Culture - Preliminary NO GROWTH OBTAINED AFTER 96 HOURS, INCUBATION TO CONTINUE FOR 1 DAYS. 11/06/18 13:00 Sputum - Endotrachea Suction/Ventilator Gram Stain - Final 11/06/18 13:00 Sputum - Endotrachea Suction/Ventilator Sputum Culture - Final Klebsiella Pneumoniae - Esbl Pseudomonas Aeruginosa Proteus Mirabilus - Esbl Produ 11/06/18 18:00 Urine For Antigen Detection Legionella Antigen - Final 11/06/18 18:00 Urine For Antigen Detection Streptococcus pneumoniae Antigen (M - Final 11/05/18 15:00 Urine - Urine - Catheterized Urine Culture - Final Yeast Like Organism Current Medications Albuterol/Ipratropium (Duoneb -) 1 amp NEB RQID [facility] Last Admin: 11/10/18 08:29 Dose: 1 amp Amantadine HCl (Symmetrel Oral Solution -) 100 mg GT BID [facility] Last Admin: 11/10/18 09:33 Dose: Not Given Carbidopa/Levodopa (Sinemet 25/250 -) 2 each GT TID [facility] Last Admin: 11/10/18 06:25 Dose: Not Given Chlorhexidine Gluconate (Hibiclens For Decolonization -) 1 applic TP HS [facility] Last Admin: 11/09/18 22:26 Dose: 1 applic Collagenase (Santyl -) 1 applic TP DAILY [facility]; Protocol Last Admin: 11/10/18 09:32 Dose: 1 applic Homatropine HBr (Isopto Homatropine 5% -) 1 drop OD QID [facility] Last Admin: 11/10/18 09:47 Dose: 1 drop Hydromorphone HCl (Dilaudid Vial -) 0.5 mg IVPUSH Q4H PRN PRN Reason: PAIN LEVEL 4 - 6 Last Admin: 11/10/18 09:29 Dose: 0.5 mg Dextrose/Sodium Chloride (D5-Ns -) 1,000 mls @ 100 mls/hr IV ASDIR [facility] Last Admin: 11/09/18 11:56 Dose: Not Given Ceftazidime/Avibactam 1.25 gm/ (Dextrose) 100 mls @ 50 mls/hr IVPB Q8H-IV [facility]; Protocol Last Admin: 11/10/18 09:45 Dose: 50 mls/hr Metronidazole (Flagyl 500mg Premixed Ivpb -) 500 mg in 100 mls @ 100 mls/hr IVPB Q8H-IV [facility] Last Admin: 11/10/18 09:32 Dose: 100 mls/hr Heparin Sodium (Porcine) 25, (000 unit/ Sodium Chloride) 500 mls @ 20 mls/hr IV TITR [facility]; Protocol Last Admin: 11/09/18 19:54 Dose: Not Given Latanoprost (Xalatan 0.005% Eye Drops -) 1 drop OU HS [facility] Last Admin: 11/09/18 22:27 Dose: 1 drop Metoprolol Tartrate (Lopressor Injection -) 5 mg IVPUSH Q4H PRN PRN Reason: TACHYCARDIA Metoprolol Tartrate (Lopressor Injection -) 5 mg IVPUSH Q6H [facility] Last Admin: 11/10/18 09:31 Dose: 5 mg Mupirocin (Bactroban Ointment (For Decolonization) -) 1 applic NS BID [facility] Stop: 11/10/18 21:59 Last Admin: 11/10/18 09:32 Dose: 1 applic Pantoprazole Sodium (Protonix Iv) 40 mg IVPUSH DAILY [facility] Last Admin: 11/10/18 09:32 Dose: 40 mg Tobramycin/Dexamethasone (Tobradex Ophthalmic Suspension -) 1 drop OU BID [facility] Last Admin: 11/10/18 09:47 Dose: [address] scan noted a/p sepsis- most alondraley pulmonary worsening renal failure-consider renal consultation continue ceftazidime/avibactam and flagyl 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
--- NOTE | 2018-11-10 10:31 | PN ---
Teaching Attending Note Name of Resident: Juanito Arceo ATTENDING PHYSICIAN STATEMENT I saw and evaluated the patient. I reviewed the resident's note and discussed the case with the resident. I agree with the resident's findings and plan as documented. SUBJECTIVE: Pt seen and examined in the ICU. Vented, lethargic, tachypneic. OBJECTIVE: Vital Signs Period Temp Pulse Resp BP Sys/Cope Pulse Ox Last 24 Hr 97.9 F-98.9 F 98-117 25-36 89-145/53-91 98 Intake & Output 11/07/18 11/08/18 11/09/18 11/10/18 23:59 23:59 23:59 23:59 Intake Total 2403 1300 4756 1590 Output Total 756 58 2961 250 Balance 1753 1220 3756 1340 Weight 84.8 kg 85.8 kg 85.3 kg 86.001 kg Gen: tachypneic, vented Heart: irregular Lung: scattered rhonchi Abd: soft, nontender Ext: + edema CBC, BMP 11/10/18 05:05 11/10/18 05:05 Active Medications Albuterol/Ipratropium (Duoneb -) 1 amp NEB RQID [facility] Last Admin: 11/10/18 08:29 Dose: 1 amp Amantadine HCl (Symmetrel Oral Solution -) 100 mg GT BID [facility] Last Admin: 11/10/18 09:33 Dose: Not Given Carbidopa/Levodopa (Sinemet 25/250 -) 2 each GT TID [facility] Last Admin: 11/10/18 06:25 Dose: Not Given Chlorhexidine Gluconate (Hibiclens For Decolonization -) 1 applic TP HS [facility] Last Admin: 11/09/18 22:26 Dose: 1 applic Collagenase (Santyl -) 1 applic TP DAILY [facility]; Protocol Last Admin: 11/10/18 09:32 Dose: 1 applic Homatropine HBr (Isopto Homatropine 5% -) 1 drop OD QID [facility] Last Admin: 11/10/18 09:47 Dose: 1 drop Hydromorphone HCl (Dilaudid Vial -) 0.5 mg IVPUSH Q4H PRN PRN Reason: PAIN LEVEL 4 - 6 Last Admin: 11/10/18 09:29 Dose: 0.5 mg Dextrose/Sodium Chloride (D5-Ns -) 1,000 mls @ 100 mls/hr IV ASDIR [facility] Last Admin: 11/09/18 11:56 Dose: Not Given Ceftazidime/Avibactam 1.25 gm/ (Dextrose) 100 mls @ 50 mls/hr IVPB Q8H-IV [facility]; Protocol Last Admin: 11/10/18 09:45 Dose: 50 mls/hr Metronidazole (Flagyl 500mg Premixed Ivpb -) 500 mg in 100 mls @ 100 mls/hr IVPB Q8H-IV [facility] Last Admin: 11/10/18 09:32 Dose: 100 mls/hr Heparin Sodium (Porcine) 25, (000 unit/ Sodium Chloride) 500 mls @ 20 mls/hr IV TITR [facility]; Protocol Last Admin: 11/09/18 19:54 Dose: Not Given Latanoprost (Xalatan 0.005% Eye Drops -) 1 drop OU HS [facility] Last Admin: 11/09/18 22:27 Dose: 1 drop Metoprolol Tartrate (Lopressor Injection -) 5 mg IVPUSH Q4H PRN PRN Reason: TACHYCARDIA Metoprolol Tartrate (Lopressor Injection -) 5 mg IVPUSH Q6H [facility] Last Admin: 11/10/18 09:31 Dose: 5 mg Mupirocin (Bactroban Ointment (For Decolonization) -) 1 applic NS BID [facility] Stop: 11/10/18 21:59 Last Admin: 11/10/18 09:32 Dose: 1 applic Pantoprazole Sodium (Protonix Iv) 40 mg IVPUSH DAILY [facility] Last Admin: 11/10/18 09:32 Dose: 40 mg Tobramycin/Dexamethasone (Tobradex Ophthalmic Suspension -) 1 drop OU BID [facility] Last Admin: 11/10/18 09:47 Dose: 1 drop ASSESSMENT AND PLAN: Chronic Respiratory Failure Pneumonia Small Bowel Obstruction Severe Sepsis Acute Kidney Injury Lactic Acidosis +Troponins likely Demand Ischemia Atrial Fibrillation COPD HTN Parkinsons Disease - antibiotics per ID - IVF boluses as needed - monitor urine output, creatinine - rate control - continue anticoagulation - resume low rate enteral feeds - DVT/GI prophylaxis - continue discussions regarding goals of care - continue ICU monitoring critical care time spent in reviewing chart, evaluating patient and formulating plan 35 min
--- NOTE | 2018-11-10 10:57 | PN ---
Physical Exam: SUBJECTIVE: Patient seen and examined at bedside this AM. No acute events overnight. OBJECTIVE: Vital Signs Period Temp Pulse Resp BP Sys/Cope Pulse Ox Last 24 Hr 97.9 F-98.9 F 98-117 25-36 89-145/53-91 98-100 GENERAL: The patient is awake, alert, nonverbal, in no acute distress. HEAD: Normal with no signs of trauma. ENT: Trach in place, NGT set to suction green fluid. NECK: Trachea midline, full range of motion, supple. LUNGS: Breath sounds decreased sounds in bases, roncharous HEART: Regular rate and rhythm, S1, S2 without murmur, rub or gallop. ABDOMEN: Soft, nontender, nondistended, hypoactive bowel sounds, no guarding, no rebound, PEG tube in place, clean. EXTREMITIES: edematous in upper and lower extremities, worse in upper though b/ l. PSYCH: blunted affect SKIN: Warm, dry, no rashes or lesions noted Laboratory Results - last 24 hr 11/09/18 11/09/18 11/09/18 11:00 12:04 15:00 WBC RBC Hgb Hct MCV MCH MCHC RDW Plt Count MPV Absolute Neuts (auto) Neutrophils % Lymphocytes % Monocytes % Eosinophils % Basophils % Nucleated RBC % PTT (Actin FS) Puncture Site Right radial ABG pH 7.33 L ABG pCO2 at Pt Temp 39.8 ABG pO2 at Pt Temp 73.0 L ABG HCO3 20.5 L ABG O2 Sat (Measured) 92.2 L ABG O2 Content 10.1 ABG Base Excess -4.5 L Santiago Test Positive O2 Delivery Device Vent Oxygen Flow Rate 40% Vent Mode A/c Vent Rate 12 Mechanical Rate Yes PEEP 5.0 Pressure Support Vent 450 Sodium Potassium Chloride Carbon Dioxide Anion Gap BUN Creatinine Est GFR (CKD-EPI)AfAm Est GFR (CKD-EPI)NonAf POC Glucometer 154 Random Glucose Calcium Phosphorus Magnesium Total Bilirubin AST ALT Alkaline Phosphatase Total Protein Albumin Vancomycin Pre-Dose 33.6 H* 11/09/18 11/09/18 11/10/18 16:36 21:52 05:05 WBC RBC Hgb Hct MCV MCH MCHC RDW Plt Count MPV Absolute Neuts (auto) Neutrophils % Lymphocytes % Monocytes % Eosinophils % Basophils % Nucleated RBC % PTT (Actin FS) 109.4 H Puncture Site ABG pH ABG pCO2 at Pt Temp ABG pO2 at Pt Temp ABG HCO3 ABG O2 Sat (Measured) ABG O2 Content ABG Base Excess Santiago Test O2 Delivery Device Oxygen Flow Rate Vent Mode Vent Rate Mechanical Rate PEEP Pressure Support Vent Sodium Potassium Chloride Carbon Dioxide Anion Gap BUN Creatinine Est GFR (CKD-EPI)AfAm Est GFR (CKD-EPI)NonAf POC Glucometer 147 126 Random Glucose Calcium Phosphorus Magnesium Total Bilirubin AST ALT Alkaline Phosphatase Total Protein Albumin Vancomycin Pre-Dose 11/10/18 11/10/18 11/10/18 05:05 05:05 05:33 WBC 16.5 H RBC 2.93 L Hgb 8.5 L Hct 26.5 L MCV 90.4 MCH 28.9 MCHC 32.0 RDW 22.3 H Plt Count 226 MPV 7.8 Absolute Neuts (auto) 14.6 H Neutrophils % 88.6 H Lymphocytes % 5.1 L D Monocytes % 6.1 Eosinophils % 0.1 Basophils % 0.1 Nucleated RBC % 0 PTT (Actin FS) Puncture Site ABG pH ABG pCO2 at Pt Temp ABG pO2 at Pt Temp ABG HCO3 ABG O2 Sat (Measured) ABG O2 Content ABG Base Excess Santiago Test O2 Delivery Device Oxygen Flow Rate Vent Mode Vent Rate Mechanical Rate PEEP Pressure Support Vent Sodium 142 Potassium 3.5 Chloride 107 Carbon Dioxide 21 Anion Gap 15 BUN 72.2 H Creatinine 3.0 H Est GFR (CKD-EPI)AfAm 20.54 Est GFR (CKD-EPI)NonAf 17.73 POC Glucometer 105 Random Glucose 117 H Calcium 7.9 L Phosphorus 5.7 H Magnesium 2.5 H Total Bilirubin 2.2 H AST 393 H ALT 224 H Alkaline Phosphatase 127 H Total Protein 5.3 L Albumin 1.8 L Vancomycin Pre-Dose Active Medications Generic Name Dose Route Start Last Admin Trade Name Freq PRN Reason Stop Dose Admin Albuterol/Ipratropium 1 amp 11/06/18 08:00 11/10/18 08:29 Duoneb - NEB 1 amp RQID LUCRECIA Administration Amantadine HCl 100 mg 11/06/18 10:00 11/10/18 09:33 Symmetrel Oral Solution - GT Not Given BID [facility] Carbidopa/Levodopa 2 each 11/05/18 22:45 11/10/18 06:25 Sinemet 25/250 - GT Not Given TID LUCRECIA Chlorhexidine Gluconate 1 applic 11/05/18 22:00 11/09/18 22:26 Hibiclens For Decolonization - TP 1 applic HS LUCRECIA Administration Collagenase 1 applic 11/06/18 12:30 11/10/18 09:32 Santyl - TP 1 applic DAILY LUCRECIA Administration Protocol Homatropine HBr 1 drop 11/06/18 10:00 11/10/18 09:47 Isopto Homatropine 5% - OD 1 drop QID LUCRECIA Administration Hydromorphone HCl 0.5 mg 11/09/18 10:38 11/10/18 09:29 Dilaudid Vial - IVPUSH 0.5 mg Q4H PRN Administration PAIN LEVEL 4 - 6 Dextrose/Sodium Chloride 1,000 mls @ 100 mls/hr 11/08/18 11:30 11/09/18 11:56 D5-Ns - IV Not Given ASDIR LUCRECIA Ceftazidime/Avibactam 1.25 gm/ 100 mls @ 50 mls/hr 11/08/18 15:15 11/10/18 09 :45 Dextrose IVPB 50 mls/hr Q8H-IV LUCRECIA Administration Protocol Metronidazole 500 mg in 100 mls @ 100 mls/hr 11/08/18 15:15 11/10/18 09:32 Flagyl 500mg Premixed Ivpb - IVPB 100 mls/hr Q8H-IV LUCRECIA Administration Heparin Sodium (Porcine) 25, 500 mls @ 20 mls/hr 11/08/18 16:15 11/09/18 19: 54 000 unit/ Sodium Chloride IV Not Given TITR LUCRECIA Protocol 1,000 UNIT/HR Latanoprost 1 drop 11/06/18 22:00 11/09/18 22:27 Xalatan 0.005% Eye Drops - OU 1 drop HS LUCRECIA Administration Metoprolol Tartrate 5 mg 11/06/18 13:04 Lopressor Injection - IVPUSH Q4H PRN TACHYCARDIA Metoprolol Tartrate 5 mg 11/10/18 10:28 Lopressor Injection - IVPUSH Q6H LUCRECIA Mupirocin 1 applic 11/05/18 22:00 11/10/18 09:32 Bactroban Ointment (For Decolonization) - NS 11/10/18 21:59 1 applic BID LUCRECIA Administration Pantoprazole Sodium 40 mg 11/06/18 10:45 11/10/18 09:32 Protonix Iv IVPUSH 40 mg DAILY LUCRECIA Administration Tobramycin/Dexamethasone 1 drop 11/06/18 10:00 11/10/18 09:47 Tobradex Ophthalmic Suspension - OU 1 drop BID LUCRECIA Administration ASSESSMENT/PLAN: This is an 88 yo M w/ a PMH significant for Parkinson's, COPD, HTN, CHF, Afib, respiratory failure (trached to vent). Pt has PEG. Pt presented to the ED for abdominal distention. Pt was admitted for Severe Sepsis 2/2 Pneumonia and possible SBO. ARDS Chronic Respiratory Failure SBO Afib HTN CHF Neuro: -Awake, alert -pt has been non verbal since he had trach, baseline confirmed with son -holding all sedatives -c/w sinemet 25/250 -pain mgmt w/ dilauded 0.5 mg Cardiology -> AF/HTN/HFpEF -c/w beta rebecca - continuing to hold antihypertensives, pt gets hypertensive when in pain but resolves after dilaudid. -D50-NS bolus -d/c lasix due to -[facility] [place]: 589 -Echo EF 65-70 %, LV fxn normal, mild , moderate AR , TR Respiratory -> -Acute on Chronic respiratory failure/ARDS/PNA -Trached to vent -Vent settings changed : A/C mode pressure support- Rate 12, TV 450, Peak flow 60, PEEP 5, %O2 40 -CXRay progressive infiltrative changes and congestion with pleural fluid. -sputum culture growing Klebsiella pneumoniae, Pseudomonas Aerginosa, Proteus. Sensitivities reviewed - Dr. Vogt consulted - on ceftazidime/avibactam (covering pseudomonas and ESBL), flagyl (for anaerobe coverage and bowel bacteria) RENAL-> [place], worsening Cr 2.7-> 3 possibly 2/2 dehydration - spoke with Dr. Johnson will see pt later today. Per Dr. Bravo- we ordered UA, UA Lytes, UA eosinophils, calculate FENa. - monitor urine output. Urine output 150mL - pt not obstructed assessed with bladder irrigation through galarza. GASTROINTESTINAL->SBO vs ileus with mild nonspecific CBD dilation -Abdominal XR reviewed, CT abdomen not showing signs of SBO, but extensive infiltrate b/l lung lobes, renal cyst -NGT set to suction, greenish fluid. -NPO, started on tube feeds, student liaison officer consulted appreciate tube feed setting recommendations -Gi recommendations appreciated -possible MRCP once optimized -elevated LFTs likely 2/2 sepsis, 393,224 AST,ALT respectively, avoiding hepatotoxic agents, liver looks normal on CT. will continue to trend INFECTIOUS DISEASE -Sepsis likely 2/2 pneumonia -lactate downtrending 10.8-->3.8-> ordered rpt for tomorrow. -leukocytosis 14.7-->18.4->16.5 -continue to trend lactic acid -Dr. Vogt consulted, -c/w Ceftazidime/Avibactam, flagyl F/E/N -D50-NS @ 100 in the setting of [place] -continue to monitor electrolytes and replete as necessary -NPO PROPHYLAXIS - SCDs, Heparin drip CODE - DNR -Paliative Care consult spoke with Estela and she says family is still waiting for the son to give input on goals of care for the patient. Visit type - Emergency Visit Emergency Visit: Yes ED Registration Date: 11/05/18 Care time: The patient presented to the Emergency Department on the above date and was hospitalized for further evaluation of their emergent condition. - New Patient This patient is new to me today: Yes Date on this admission: 11/10/18 - Critical Care Critical Care patient: Yes Total Critical Care Time (in minutes): 35 Critical Care Statement: The care of this patient involved high complexity decision making to prevent further life threatening deterioration of the patient 's condition and/or to evaluate & treat vital organ system(s) failure or risk of failure. ATTENDING PHYSICIAN STATEMENT I saw and evaluated the patient. I reviewed the resident's note and discussed the case with the resident. I agree with the resident's findings and plan as documented. SUBJECTIVE: OBJECTIVE: ASSESSMENT AND PLAN:
[2018-11-10] MEDS: DEXTROSE 5%-NORMAL SALINE 1,000 ML IV SCH (12:29)
--- NOTE | 2018-11-10 13:37 | CONSULT ---
Consult Consult Specialty:: Nephrology Reason for Consultation:: [place] - History of Present Illness Chief Complaint: initially presented with worsening abd distention History of Present Illness: Pt is an 88 year old male with pmhx of parkinsons, copd, chf, htn, a-fib, chronic resp failure with trache and peg, and porstate cancer who initially presented with worsening abdominal distention. He was recently in [facility] for sepsis secondary to UTI. On this admission he was found to have SBO , severe sepsis and PNA. I was called to evaluate him for worsening renal function. His creatinine has been worsening over the last several days. He is unable to give history. He is awake and does not appears to be in any distress. - History Source History Provided By: Medical Record - Past Medical History FIRST OFFICER: Yes: Parkinson's Cardio/Vascular: Yes: AFIB, HTN Pulmonary: Yes: COPD, Other (chronic resp failure) Gastrointestinal: Yes: Other (peg) - Past Surgical History Additional Surgical History: peg, trache - Alcohol/Substance Use Hx Alcohol Use: No - Smoking History Smoking history: Smoker current status UNK Have you smoked in the past 12 months: No Home Medications - Allergies Allergies/Adverse Reactions: Allergies Allergy/AdvReac Type Severity Reaction Status Date / Time No Known Allergies Allergy Verified 11/05/18 14:35 - Home Medications Home Medications: Ambulatory Orders Acetaminophen [Tylenol] 650 mg GT QID PRN 11/05/18 Albuterol 2.5/Ipratropium 0.5 [Duoneb -] 1 neb IH QID 11/05/18 Amantadine Oral Solution [Symmetrel Oral Solution -] 100 mg GT BID 11/05/18 Amiodarone HCl [Cordarone -] 200 mg GT DAILY 11/05/18 Apixaban [Eliquis -] 5 mg GT BID 11/05/18 Ascorbic Acid 500 mg GT DAILY 11/05/18 Carbidopa/Levodopa 25/250 [Sinemet 25/250 -] 2 each PO TID 11/05/18 Docusate Liquid [Colace Liquid -] 100 mg GT DAILY 11/05/18 Famotidine 20 mg GT DAILY 11/05/18 Furosemide [Lasix -] 40 mg GT DAILY 11/05/18 Homatropine HBr 5% Ophth Soln [Isopto Homatropine] 1 drop OD QID 11/05/18 Latanoprost 0.005% Eye Drops [Xalatan 0.005% Eye Drops -] 1 drop OU HS 11/05/18 Metoprolol Tartrate [Lopressor -] 50 mg GT BID 11/05/18 Multivitamin [Multiple Vitamins] 15 ml GT DAILY 11/05/18 Polyethylene Glycol 3350 [Miralax (For Bowel Prep) -] 17 gm GT DAILY 11/05/18 Tobramycin/Dexamethasone [Tobradex Eye Drops] 1 drop OU BID 11/05/18 Zinc Sulfate [Zinc-220] 220 mg GT DAILY 11/05/18 Family Disease History - Family Disease History Family History: Unable to Obtain Review of Systems Unable to obtain ROS, reason: pt not verbal Physical Exam Vital Signs: Vital Signs Temperature 98.4 F 11/10/18 12:00 Pulse Rate 112 H 11/10/18 12:00 Respiratory Rate 35 H 11/10/18 12:29 Blood Pressure 128/80 11/10/18 12:00 O2 Sat by Pulse Oximetry (%) 100 11/10/18 09:00 Constitutional: Yes: Calm Eyes: Yes: Conjunctiva Clear Neck: Yes: Other (trache) Cardiovascular: Yes: S1, S2 Respiratory: Yes: Mechanically Ventilated Gastrointestinal: Yes: Distention Renal/: Yes: Salguero Present Musculoskeletal: Yes: Muscle Weakness Edema: Yes Edema: LLE: 1+, RLE: 1+ Neurological: Yes: Pre-Existing Deficit, Other (awake) Labs: CBC, BMP 11/10/18 05:05 11/10/18 05:05 Laboratory Tests 11/05/18 11/05/18 11/06/18 14:45 15:00 05:30 Sodium Potassium Creatinine 1.5 H 1.3 Urine Protein 1+ H Urine Blood 3+ H Vancomycin Pre-Dose 11/07/18 11/08/18 11/09/18 05:30 05:35 05:25 Sodium Potassium Creatinine 1.3 2.1 H 2.7 H Urine Protein Urine Blood Vancomycin Pre-Dose 11/09/18 11/10/18 15:00 05:05 Sodium 142 Potassium 3.5 Creatinine 3.0 H Urine Protein Urine Blood Vancomycin Pre-Dose 33.6 H* Imaging - Results Chest X-ray: Report Reviewed Ultrasound: Report Reviewed Problem List - Problems (1) [place] (acute kidney injury) Code(s): N17.9 - ACUTE KIDNEY FAILURE, UNSPECIFIED (2) Atrial fibrillation with RVR Code(s): I48.91 - UNSPECIFIED ATRIAL FIBRILLATION (3) Ileus Code(s): K56.7 - ILEUS, UNSPECIFIED (4) Sepsis Code(s): A41.9 - SEPSIS, UNSPECIFIED ORGANISM Qualifiers: Sepsis type: sepsis due to unspecified organism Sepsis acute organ dysfunction status: with acute organ dysfunction Severe sepsis acute organ dysfunction type: acute renal failure Acute renal failure type: unspecified Severe sepsis shock status: without septic shock Qualified Code(s): A41.9 - Sepsis, unspecified organism; R65.20 - Severe sepsis without septic shock; N17.9 - Acute kidney failure, unspecified Assessment/Plan Current Medications Generic Name Dose Route Start Last Admin Trade Name Freq PRN Reason Stop Dose Admin Albuterol/Ipratropium 1 amp 11/06/18 08:00 11/10/18 12:32 Duoneb - NEB 1 amp RQID LUCRECIA Administration Amantadine HCl 100 mg 11/06/18 10:00 11/10/18 09:33 Symmetrel Oral Solution - GT Not Given BID LUCRECIA Carbidopa/Levodopa 2 each 11/05/18 22:45 11/10/18 06:25 Sinemet 25/250 - GT Not Given TID LUCRECIA Chlorhexidine Gluconate 1 applic 11/05/18 22:00 11/09/18 22:26 Hibiclens For Decolonization - TP 1 applic HS LUCRECIA Administration Collagenase 1 applic 11/06/18 12:30 11/10/18 09:32 Santyl - TP 1 applic DAILY LUCRECIA Administration Protocol Homatropine HBr 1 drop 11/06/18 10:00 11/10/18 09:47 Isopto Homatropine 5% - OD 1 drop QID LUCRECIA Administration Hydromorphone HCl 0.5 mg 11/09/18 10:38 11/10/18 09:29 Dilaudid Vial - IVPUSH 0.5 mg Q4H PRN Administration PAIN LEVEL 4 - 6 Dextrose/Sodium Chloride 1,000 mls @ 100 mls/hr 11/08/18 11:30 11/10/18 12:29 D5-Ns - IV 100 mls/hr ASDIR LUCRECIA Administration Ceftazidime/Avibactam 1.25 gm/ 100 mls @ 50 mls/hr 11/08/18 15:15 11/10/18 09 :45 Dextrose IVPB 50 mls/hr Q8H-IV LUCRECIA Administration Protocol Metronidazole 500 mg in 100 mls @ 100 mls/hr 11/08/18 15:15 11/10/18 09:32 Flagyl 500mg Premixed Ivpb - IVPB 100 mls/hr Q8H-IV LUCRECIA Administration Heparin Sodium (Porcine) 25, 500 mls @ 20 mls/hr 11/08/18 16:15 11/09/18 19: 54 000 unit/ Sodium Chloride IV Not Given TITR LUCRECIA Protocol 1,000 UNIT/HR Latanoprost 1 drop 11/06/18 22:00 11/09/18 22:27 Xalatan 0.005% Eye Drops - OU 1 drop HS LUCRECIA Administration Metoprolol Tartrate 5 mg 11/06/18 13:04 Lopressor Injection - IVPUSH Q4H PRN TACHYCARDIA Metoprolol Tartrate 5 mg 11/10/18 15:30 Lopressor Injection - IVPUSH Q6H LUCRECIA Mupirocin 1 applic 11/05/18 22:00 11/10/18 09:32 Bactroban Ointment (For Decolonization) - NS 11/10/18 21:59 1 applic BID LUCRECIA Administration Pantoprazole Sodium 40 mg 11/06/18 10:45 11/10/18 09:32 Protonix Iv IVPUSH 40 mg DAILY LUCRECIA Administration Tobramycin/Dexamethasone 1 drop 11/06/18 10:00 11/10/18 09:47 Tobradex Ophthalmic Suspension - OU 1 drop BID LUCRECIA Administration Impression: 1. [place] 2. sepsis 3. PNA 4. SBO 5. Parkinson's 6. a-fib 7. chronic resp failure 8. severe sepsis 9. lactic acidosis 10. copd 11. hx of htn Plan - [place] likely multifactorial in septic patient with multiple comorbidities - repeat vanco levels and monitor closely - check urine lytes, check ua and urine tool room supervisor - monitor urine output - caution with fluids and volume overload - lactic acid is improving - will make more recommendations after evaluate urine studies - cont vent support - cont ICU management - no indication for INFORMATICS PHYSICIAN at this point
--- NOTE | 2018-11-10 17:21 | PN ---
Physical Exam: SUBJECTIVE: Patient seen and examined. and grandchildren present. Pt is more responsive today and is able to turner machine fingers and follows voices. OBJECTIVE: Vital Signs Period Temp Pulse Resp BP Sys/Cope Pulse Ox Last 24 Hr 98.0 F-98.9 F 108-117 27-36 110-145/69-96 98-100 GENERAL: The patient is awake and responds to verbal and painful stimuli, on vent HEAD: Normal with no signs of trauma. EYES: pupils equally reactive to light, follows verbal stimuli, sclera anicteric , conjunctiva clear. No ptosis. ENT: Ears normal, nares patent, moist mucous membranes, NG tube NECK: Trach in place, limited ROM LUNGS: Breath sounds equal, rhonchi bilaterally, abdominal breathing HEART: Regular rate and irregular rhythm, S1, S2 without murmur, rub or gallop. ABDOMEN: Soft, mild distention, BS left side>right side, gastric tube in place EXTREMITIES: increasing edematous hands, +1 pitting edema of feet, warm to touch NEUROLOGICAL: can move fingers and toes, follows voices with eyes and head PSYCH: unable to assess SKIN: Warm, dry, ecchymosis noted on both hands Laboratory Results - last 24 hr 11/09/18 11/10/18 11/10/18 21:52 05:05 05:05 WBC 16.5 H RBC 2.93 L Hgb 8.5 L Hct 26.5 L MCV 90.4 MCH 28.9 MCHC 32.0 RDW 22.3 H Plt Count 226 MPV 7.8 Absolute Neuts (auto) 14.6 H Neutrophils % 88.6 H Lymphocytes % 5.1 L D Monocytes % 6.1 Eosinophils % 0.1 Basophils % 0.1 Nucleated RBC % 0 PTT (Actin FS) 109.4 H Sodium Potassium Chloride Carbon Dioxide Anion Gap BUN Creatinine Est GFR (CKD-EPI)AfAm Est GFR (CKD-EPI)NonAf POC Glucometer 126 Random Glucose Calcium Phosphorus Magnesium Total Bilirubin AST ALT Alkaline Phosphatase Total Protein Albumin 11/10/18 11/10/18 11/10/18 05:05 05:33 12:09 WBC RBC Hgb Hct MCV MCH MCHC RDW Plt Count MPV Absolute Neuts (auto) Neutrophils % Lymphocytes % Monocytes % Eosinophils % Basophils % Nucleated RBC % PTT (Actin FS) Sodium 142 Potassium 3.5 Chloride 107 Carbon Dioxide 21 Anion Gap 15 BUN 72.2 H Creatinine 3.0 H Est GFR (CKD-EPI)AfAm 20.54 Est GFR (CKD-EPI)NonAf 17.73 POC Glucometer 105 107 Random Glucose 117 H Calcium 7.9 L Phosphorus 5.7 H Magnesium 2.5 H Total Bilirubin 2.2 H AST 393 H ALT 224 H Alkaline Phosphatase 127 H Total Protein 5.3 L Albumin 1.8 L 11/10/18 13:05 WBC RBC Hgb Hct MCV MCH MCHC RDW Plt Count MPV Absolute Neuts (auto) Neutrophils % Lymphocytes % Monocytes % Eosinophils % Basophils % Nucleated RBC % PTT (Actin FS) 52.0 H Sodium Potassium Chloride Carbon Dioxide Anion Gap BUN Creatinine Est GFR (CKD-EPI)AfAm Est GFR (CKD-EPI)NonAf POC Glucometer Random Glucose Calcium Phosphorus Magnesium Total Bilirubin AST ALT Alkaline Phosphatase Total Protein Albumin Active Medications Generic Name Dose Route Start Last Admin Trade Name Freq PRN Reason Stop Dose Admin Albuterol/Ipratropium 1 amp 11/06/18 08:00 11/10/18 12:32 Duoneb - NEB 1 amp RQID LUCRECIA Administration Amantadine HCl 100 mg 11/06/18 10:00 11/10/18 09:33 Symmetrel Oral Solution - GT Not Given BID LUCRECIA Carbidopa/Levodopa 2 each 11/05/18 22:45 11/10/18 14:15 Sinemet 25/250 - GT Not Given TID LUCRECIA Chlorhexidine Gluconate 1 applic 11/05/18 22:00 11/09/18 22:26 Hibiclens For Decolonization - TP 1 applic HS LUCRECIA Administration Collagenase 1 applic 11/06/18 12:30 11/10/18 09:32 Santyl - TP 1 applic DAILY LUCRECIA Administration Protocol Homatropine HBr 1 drop 11/06/18 10:00 11/10/18 14:15 Isopto Homatropine 5% - OD 1 drop QID LUCRECIA Administration Hydromorphone HCl 0.5 mg 11/09/18 10:38 11/10/18 09:29 Dilaudid Vial - IVPUSH 0.5 mg Q4H PRN Administration PAIN LEVEL 4 - 6 Dextrose/Sodium Chloride 1,000 mls @ 100 mls/hr 11/08/18 11:30 11/10/18 12:29 D5-Ns - IV 100 mls/hr ASDIR LUCRECIA Administration Ceftazidime/Avibactam 1.25 gm/ 100 mls @ 50 mls/hr 11/08/18 15:15 11/10/18 09 :45 Dextrose IVPB 50 mls/hr Q8H-IV LUCRECIA Administration Protocol Metronidazole 500 mg in 100 mls @ 100 mls/hr 11/08/18 15:15 11/10/18 09:32 Flagyl 500mg Premixed Ivpb - IVPB 100 mls/hr Q8H-IV LUCRECIA Administration Heparin Sodium (Porcine) 25, 500 mls @ 20 mls/hr 11/08/18 16:15 11/10/18 07: 15 000 unit/ Sodium Chloride IV 750 unit/hr TITR LUCRECIA 15 mls/hr Titration Protocol 1,000 UNIT/HR Latanoprost 1 drop 11/06/18 22:00 11/09/18 22:27 Xalatan 0.005% Eye Drops - OU 1 drop HS LUCRECIA Administration Metoprolol Tartrate 5 mg 11/06/18 13:04 Lopressor Injection - IVPUSH Q4H PRN TACHYCARDIA Metoprolol Tartrate 5 mg 11/10/18 15:30 Lopressor Injection - IVPUSH Q6H LUCRECIA Mupirocin 1 applic 11/05/18 22:00 11/10/18 09:32 Bactroban Ointment (For Decolonization) - NS 11/10/18 21:59 1 applic BID LUCRECIA Administration Pantoprazole Sodium 40 mg 11/06/18 10:45 11/10/18 09:32 Protonix Iv IVPUSH 40 mg DAILY LUCRECIA Administration Tobramycin/Dexamethasone 1 drop 11/06/18 10:00 11/10/18 09:47 Tobradex Ophthalmic Suspension - OU 1 drop BID LUCRECIA Administration ASSESSMENT/PLAN: Mr. Smalls is an 88yo male with Parkinson's, COPD, CHF, HTN, a-fib on Eliquis, respiratory failure with trach and PEG, hx of prostate cancer who presents for abdominal distention and fevers. He was found to be septic 2/2 pneumonia, as well as SBO, and CBD dilation. Attended meeting today with Dr. Arceo from ICU and Reverend Solomon from palliative care with pt's and grandchildren with son on facetime. Discussed plan. Consent signed for central line if needed. Family generally considering all interventions but keep DNR. No living will, defer decisions to . #sepsis 2/2 PNA -pulmonary exam remains similar to previous 2 days -leukocytosis wavering 14.7-->18.4-->16.5 -sputum culture: proteus, pseudomonas, and klebsiella -blood cultures pending, no growth to date -CXR- congestion and infiltration progressing from yesterday -CT abd/pelvis showed mod to large pleural effusion on right, moderate on left -continue Ceftazidime/Avibactam and Flagyl -ID following -CBC -palliative care attended visit today #complicated UTI +3 leuk esterase, +2 protein, +3 blood -galarza in place -continue abx for coverage -consider urine cx #CHF -echo EF 65-70%, no LVH, mild RA dilation, moderate TR, moderate AR, no pericardial effusion -EKG 11/08/18: irregular rhythm, HR 98, QTc 589 -monitor QTc and medications which could increase it -Mg 2.5 yesterday and today, monitor -continue to monitor with CXR -d/c Lasix while on D5W -CMP #SBO, resolved -abdominal tender to palpation with hypoactive bowel sounds in all quadrants -abdominal CT- distended gallbladder, no evidence of SBO, small bowel loops no longer dilated, no diverticulitis, fecal residue rectosigmoid junction -monitor for constipation, consider tap water enema if pt becomes distended or more uncomfortable -pain control -NPO #hypoglycemia BGs 110s-150s since started D5W -D5W 100ml/hr -BGM -SSI #CBD dilation -finding on CT abd 11/05. Planned MRCP but not qualifying now. -GI following -CMP #a-fib on Eliquis at admission tachy to 110s average -continue metoprolol -continue heparin -PTT monitoring #FRANCE Cr this admission 1.5-->2.7-->3.0 -continue fluids and closely monitor for effects on other organs -Dr. Ibrahim on board #HTN well-controlled, currently on metoprolol -frequent VS checks #COPD -duo-neb PRN #Parkinson's -holding home meds FEN D5W for hypoglycemia monitor lytes tube feedings held DVT Ppe herparin DNR Visit type - Emergency Visit Emergency Visit: Yes ED Registration Date: 11/05/18 Care time: The patient presented to the Emergency Department on the above date and was hospitalized for further evaluation of their emergent condition. - New Patient This patient is new to me today: No - Critical Care Critical Care patient: Yes Total Critical Care Time (in minutes): 35 Critical Care Statement: The care of this patient involved high complexity decision making to prevent further life threatening deterioration of the patient 's condition and/or to evaluate & treat vital organ system(s) failure or risk of failure. - Discharge Referral Referred to [facility] Med [facility].: No ATTENDING PHYSICIAN STATEMENT I saw and evaluated the patient. I reviewed the resident's note and discussed the case with the resident. I agree with the resident's findings and plan as documented. SUBJECTIVE: OBJECTIVE: ASSESSMENT AND PLAN:
[2018-11-10 19:43] LABS: EPI CELLS 5.7 /HPF (0-5/HPF); HYALINE CASTS 50 /lpf (0-8); URINE APPEARANCE TURBID; URINE BILIRUBIN NEGATIVE (NEGATIVE); URINE COLOR YELLOW; URINE GLUCOSE (UA) NEGATIVE (NEGATIVE); URINE KETONE NEGATIVE (NEGATIVE); URINE LEUK ESTERASE 3+ (NEGATIVE); URINE NITRITE NEGATIVE (NEGATIVE); URINE PROTEIN 2+ (NEGATIVE); URINE UROBILINOGEN 0.2 mg/dL (0.2-1.0); URINE WBC 539 /hpf (0-5)
--- NOTE | 2018-11-10 20:12 | PN ---
Teaching Attending Note Name of Resident: Renate Montilla ATTENDING PHYSICIAN STATEMENT I saw and evaluated the patient. I reviewed the resident's note and discussed the case with the resident. I agree with the resident's findings and plan as documented. SUBJECTIVE: Non-verbal due to Trach/Vent. OBJECTIVE: Afebrile, Hemodynamically Stable. Awake, Alert. Last Vital Signs Temp Pulse Resp BP Pulse Ox 98.2 F 104 H 33 H 109/69 100 11/10/18 18:00 11/10/18 18:00 11/10/18 18:35 11/10/18 18:00 11/10/18 09:00 HEENT - Atraumatic, Normocephalic. s/p Trach. NG tube in place. Heart - S1, S2, Irregular. Lungs - good air entry bilaterally Abdomen - PEG in situ. Soft. Bowel Sounds normal. Extremities - Edema +. No calf tenderness. Laboratory Results - last 24 hr 11/10/18 11/10/18 11/10/18 16:45 16:45 18:36 WBC RBC Hgb Hct MCV MCH MCHC RDW Plt Count MPV Absolute Neuts (auto) Neutrophils % Neutrophils % (Manual) Band Neutrophils % Lymphocytes % Lymphocytes % (Manual) Monocytes % Monocytes % (Manual) Eosinophils % Eosinophils % (Manual) Basophils % Basophils % (Manual) Myelocytes % (Man) Promyelocytes % (Man) Blast Cells % (Manual) Nucleated RBC % Metamyelocytes Hypochromia Platelet Estimate Polychromasia Poikilocytosis Anisocytosis Microcytosis Macrocytosis Target Cells Tear Drop Cells Ovalocytes Lane Cells PTT (Actin FS) Sodium Potassium Chloride Carbon Dioxide Anion Gap BUN Creatinine Est GFR (CKD-EPI)AfAm Est GFR (CKD-EPI)NonAf POC Glucometer 132 Random Glucose Lactic Acid Calcium Phosphorus Magnesium Total Bilirubin Direct Bilirubin AST ALT Alkaline Phosphatase Total Protein Albumin Urine Color Yellow Urine Appearance Turbid Urine pH 5.0 Ur Specific Whick 1.014 Urine Protein 2+ H Urine Glucose (UA) Negative Urine Ketones Negative Urine Blood 3+ H Urine Nitrite Negative Urine Bilirubin Negative Urine Urobilinogen 0.2 Ur Leukocyte Esterase 3+ H Urine WBC (Auto) 539 Urine RBC (Auto) 661.7 Urine Casts (Auto) 50 U Epithel Cells (Auto) 5.7 Urine Bacteria (Auto) 43.2 Ur Random Creatinine 22.0 L Ur Random Sodium 105 Random Vancomycin 08/29/19 08/29/19 08/29/19 05:05 05:05 05:05 WBC RBC Hgb Hct MCV MCH MCHC RDW Plt Count MPV Absolute Neuts (auto) Neutrophils % Neutrophils % (Manual) Band Neutrophils % Lymphocytes % Lymphocytes % (Manual) Monocytes % Monocytes % (Manual) Eosinophils % Eosinophils % (Manual) Basophils % Basophils % (Manual) Myelocytes % (Man) Promyelocytes % (Man) Blast Cells % (Manual) Nucleated RBC % Metamyelocytes Hypochromia Platelet Estimate Polychromasia Poikilocytosis Anisocytosis Microcytosis Macrocytosis Target Cells Tear Drop Cells Ovalocytes [place] Cells PTT (Actin FS) 97.3 H Sodium Potassium Chloride Carbon Dioxide Anion Gap BUN Creatinine Est GFR (CKD-EPI)AfAm Est GFR (CKD-EPI)NonAf POC Glucometer Random Glucose Lactic Acid 1.8 Calcium Phosphorus Magnesium Total Bilirubin Direct Bilirubin AST ALT Alkaline Phosphatase Total Protein Albumin Urine Color Urine Appearance Urine pH Ur Specific Whick Urine Protein Urine Glucose (UA) Urine Ketones Urine Blood Urine Nitrite Urine Bilirubin Urine Urobilinogen Ur Leukocyte Esterase Urine WBC (Auto) Urine RBC (Auto) Urine Casts (Auto) U Epithel Cells (Auto) Urine Bacteria (Auto) Ur Random Creatinine Ur Random Sodium Random Vancomycin 28.8 H 11/11/18 11/11/18 11/11/18 05:05 05:05 11:46 WBC 11.2 H RBC 3.06 L Hgb 8.9 L Hct 27.9 L MCV 91.2 MCH 29.0 MCHC 31.8 L RDW 22.2 H Plt Count 179 D MPV 7.9 Absolute Neuts (auto) 9.2 H Neutrophils % 82.2 Neutrophils % (Manual) 81.0 Band Neutrophils % 1.0 Lymphocytes % 11.1 D Lymphocytes % (Manual) 10.0 Monocytes % 5.4 Monocytes % (Manual) 2 L Eosinophils % 1.2 D Eosinophils % (Manual) 2.0 Basophils % 0.1 Basophils % (Manual) 0.0 Myelocytes % (Man) 0 Promyelocytes % (Man) 0 Blast Cells % (Manual) 0 Nucleated RBC % 1 H Metamyelocytes 2 D Hypochromia 0 Platelet Estimate Normal Polychromasia 1+ Poikilocytosis 1+ Anisocytosis 2+ Microcytosis 1+ Macrocytosis 1+ Target Cells 1+ Tear Drop Cells 1+ Ovalocytes 1+ Lane Cells 1+ PTT (Actin FS) Sodium 142 Potassium 3.6 Chloride 107 Carbon Dioxide 22 Anion Gap 12 BUN 85.8 H Creatinine 3.4 H Est GFR (CKD-EPI)AfAm 17.66 Est GFR (CKD-EPI)NonAf 15.24 POC Glucometer 124 Random Glucose 120 H Lactic Acid Calcium 7.8 L Phosphorus 5.3 H Magnesium 2.4 Total Bilirubin 2.1 H Direct Bilirubin 1.5 H AST 298 H ALT 106 H Alkaline Phosphatase 137 H Total Protein 5.1 L Albumin 1.6 L Urine Color Urine Appearance Urine pH Ur Specific Whick Urine Protein Urine Glucose (UA) Urine Ketones Urine Blood Urine Nitrite Urine Bilirubin Urine Urobilinogen Ur Leukocyte Esterase Urine WBC (Auto) Urine RBC (Auto) Urine Casts (Auto) U Epithel Cells (Auto) Urine Bacteria (Auto) Ur Random Creatinine Ur Random Sodium Random Vancomycin Current Medications Generic Name Dose Route Start Last Admin Trade Name Freq PRN Reason Stop Dose Admin Albuterol/Ipratropium 1 amp 11/06/18 08:00 11/11/18 16:13 Duoneb - NEB 1 amp RQID LUCRCEIA Administration Amantadine HCl 100 mg 11/06/18 10:00 11/11/18 09:42 Symmetrel Oral Solution - GT 100 mg BID LUCRECIA Administration Apixaban 2.5 mg 11/11/18 22:00 Eliquis - GT BID LUCRECIA Carbidopa/Levodopa 2 each 11/05/18 22:45 11/11/18 13:47 Sinemet 25/250 - GT 2 each TID LUCRECIA Administration Chlorhexidine Gluconate 1 applic 11/05/18 22:00 11/10/18 21:16 Hibiclens For Decolonization - TP 1 applic HS LUCRECIA Administration Collagenase 1 applic 11/06/18 12:30 11/11/18 12:02 Santyl - TP 1 applic DAILY LUCRECIA Administration Protocol Homatropine HBr 1 drop 11/06/18 10:00 11/11/18 15:30 Isopto Homatropine 5% - OD 1 drop QID LUCRECIA Administration Hydromorphone HCl 0.5 mg 11/09/18 10:38 11/10/18 09:29 Dilaudid Vial - IVPUSH 0.5 mg Q4H PRN Administration PAIN LEVEL 4 - 6 Ceftazidime/Avibactam 1.25 gm/ 100 mls @ 50 mls/hr 11/08/18 15:15 11/11/18 09 :44 Dextrose IVPB 50 mls/hr Q8H-IV LUCRECIA Administration Protocol Metronidazole 500 mg in 100 mls @ 100 mls/hr 11/08/18 15:15 11/11/18 09:45 Flagyl 500mg Premixed Ivpb - IVPB 100 mls/hr Q8H-IV LUCRECIA Administration Dextrose/Sodium Chloride 1,000 mls @ 50 mls/hr 11/11/18 11:20 11/11/18 12:03 D5-Ns - IV 50 mls/hr ASDIR LUCRECIA Administration Latanoprost 1 drop 11/06/18 22:00 11/10/18 21:18 Xalatan 0.005% Eye Drops - OU 1 drop HS LUCRECIA Administration Metoprolol Tartrate 5 mg 11/06/18 13:04 Lopressor Injection - IVPUSH Q4H PRN TACHYCARDIA Metoprolol Tartrate 5 mg 11/10/18 15:30 11/11/18 15:32 Lopressor Injection - IVPUSH 5 mg Q6H LUCRECIA Administration Pantoprazole Sodium 40 mg 11/06/18 10:45 11/11/18 09:42 Protonix Iv IVPUSH 40 mg DAILY LUCRECIA Administration Tobramycin/Dexamethasone 1 drop 11/06/18 10:00 11/11/18 12:02 Tobradex Ophthalmic Suspension - OU 1 drop BID LUCRECIA Administration Home Medications Medication Instructions Recorded Acetaminophen [Tylenol] 650 mg GT QID PRN 11/05/18 Albuterol 2.5/Ipratropium 0.5 1 neb IH QID 11/05/18 [Duoneb -] Amantadine Oral Solution 100 mg GT BID 11/05/18 [Symmetrel Oral Solution -] Amiodarone HCl [Cordarone -] 200 mg GT DAILY 11/05/18 Apixaban [Eliquis -] 5 mg GT BID 11/05/18 Ascorbic Acid 500 mg GT DAILY 11/05/18 Carbidopa/Levodopa 25/250 [Sinemet 2 each PO TID 11/05/18 25/250 -] Docusate Liquid [Colace Liquid -] 100 mg GT DAILY 11/05/18 Famotidine 20 mg GT DAILY 11/05/18 Furosemide [Lasix -] 40 mg GT DAILY 11/05/18 Homatropine HBr 5% Ophth Soln 1 drop OD QID 11/05/18 [Isopto Homatropine] Latanoprost 0.005% Eye Drops 1 drop OU HS 11/05/18 [Xalatan 0.005% Eye Drops -] Metoprolol Tartrate [Lopressor -] 50 mg GT BID 11/05/18 Multivitamin [Multiple Vitamins] 15 ml GT DAILY 11/05/18 Polyethylene Glycol 3350 [Miralax 17 gm GT DAILY 11/05/18 (For Bowel Prep) -] Tobramycin/Dexamethasone [Tobradex 1 drop OU BID 11/05/18 Eye Drops] Zinc Sulfate [Zinc-220] 220 mg GT DAILY 11/05/18 ASSESSMENT AND PLAN: 88 year old male with Parkinson's Disease, COPD, HTN, Atrial Fibrillation, CRF s /p Trach/PEG, presented with fevers/chills, abdominal pain/distension, found to have SBO and sepsis secondary to Pneumonia. 1. Acute on Chronic Respiratory Failure and Severe Sepsis secondary to Pneumonia s/p Trach/Vent dependent Sputum Cx positive for Pseudomonas, Klebsiella ESBL, Proteus ESBL Continue Ceftazidime/Avibactam, Flagyl Afebrile, Hemodynamically Stable. 2. Dilated CBD - further management as per GI. 3. Atrial fibrillation - continue Metoprolol, Amiodarone, and Heparin drip. 4. FRANCE sec to Sepsis versus contrast induced nephropathy. IV hydration. No obstruction on imaging. Nephrology following. 5. Elevated troponin - sec to demand due to sepsis. TnI max 0.07. No further work-up currently. Can follow with cardiology as out-patient. 6. Parkinson's Disease - Continue Sinemet/Amantadine. 7. HTN - Hypotension resolved. resumed on Metoprolol. 8. Dysphagia s/p PEG - SBO resolved. DVT Px - Heparin Drip. GI Px - PPI.
[2018-11-10] MEDS: CHLORHEXIDINE GLUCONATE 4% CLEANSER FOR DECOLONIZATION TP SCH (21:16)
[2018-11-10 21:18] LABS: URINE BACTERIA 43.2 /hpf (NEGATIVE); URINE RBC 661.7 /hpf (0-4)
[2018-11-10] MEDS: LATANOPROST 0.005% OPHTH SOLN 2.5ML BOTTLE OU SCH (21:18)
[2018-11-11] MEDS: CEFTAZIDIME/AVIBACTAM 1.25 GM in DEXTROSE 5%-WATER - 100 ML IVPB SCH ×3 (01:13→17:50)
[2018-11-11] MEDS: METOPROLOL TARTRATE 5 MG/5 ML VIAL IVPUSH SCH ×3 (04:00→15:32)
[2018-11-11] MEDS: CARBIDOPA/LEVODOPA 25/250 TABLET (FP) GT SCH ×3 (05:36→21:54)
--- NOTE | 2018-11-11 06:20 | PN ---
Physical Exam: SUBJECTIVE: Patient seen and examined. Pt is continuing to be more responsive. OBJECTIVE: Vital Signs Period Temp Pulse Resp BP Sys/Cope Pulse Ox Last 24 Hr 97.0 F-98.6 F 104-117 24-38 103-145/59-96 100-100 GENERAL: The patient is awake and responds to verbal and painful stimuli, on vent HEAD: Normal with no signs of trauma. EYES: pupils equally reactive to light, follows verbal stimuli, sclera anicteric , conjunctiva clear. No ptosis. ENT: Ears normal, nares patent, moist mucous membranes, NG tube NECK: Trach in place, limited ROM LUNGS: Breath sounds equal, rhonchi bilaterally, abdominal breathing HEART: Regular rate and irregular rhythm, S1, S2 without murmur, rub or gallop. ABDOMEN: Soft, mild distention, hypoactive bowel sounds, gastric tube in place EXTREMITIES: edematous hands, +1 pitting edema of feet, warm to touch NEUROLOGICAL: can move fingers and toes, follows voices with eyes and head PSYCH: unable to assess SKIN: Warm, dry, ecchymosis noted on both hands Laboratory Results - last 24 hr 11/10/18 11/10/18 11/10/18 05:05 05:05 12:09 WBC 16.5 H RBC 2.93 L Hgb 8.5 L Hct 26.5 L MCV 90.4 MCH 28.9 MCHC 32.0 RDW 22.3 H Plt Count 226 MPV 7.8 Absolute Neuts (auto) 14.6 H Neutrophils % 88.6 H Lymphocytes % 5.1 L D Monocytes % 6.1 Eosinophils % 0.1 Basophils % 0.1 Nucleated RBC % 0 PTT (Actin FS) Sodium 142 Potassium 3.5 Chloride 107 Carbon Dioxide 21 Anion Gap 15 BUN 72.2 H Creatinine 3.0 H Est GFR (CKD-EPI)AfAm 20.54 Est GFR (CKD-EPI)NonAf 17.73 POC Glucometer 107 Random Glucose 117 H Calcium 7.9 L Phosphorus 5.7 H Magnesium 2.5 H Total Bilirubin 2.2 H AST 393 H ALT 224 H Alkaline Phosphatase 127 H Total Protein 5.3 L Albumin 1.8 L Urine Color Urine Appearance Urine pH Ur Specific [place] Urine Protein Urine Glucose (UA) Urine Ketones Urine Blood Urine Nitrite Urine Bilirubin Urine Urobilinogen Ur Leukocyte Esterase Urine WBC (Auto) Urine RBC (Auto) Urine Casts (Auto) U Epithel Cells (Auto) Urine Bacteria (Auto) Ur Random Creatinine Ur Random Sodium 11/10/18 11/10/18 11/10/18 13:05 16:45 16:45 WBC RBC Hgb Hct MCV MCH MCHC RDW Plt Count MPV Absolute Neuts (auto) Neutrophils % Lymphocytes % Monocytes % Eosinophils % Basophils % Nucleated RBC % PTT (Actin FS) 52.0 H Sodium Potassium Chloride Carbon Dioxide Anion Gap BUN Creatinine Est GFR (CKD-EPI)AfAm Est GFR (CKD-EPI)NonAf POC Glucometer Random Glucose Calcium Phosphorus Magnesium Total Bilirubin AST ALT Alkaline Phosphatase Total Protein Albumin Urine Color Yellow Urine Appearance Turbid Urine pH 5.0 Ur Specific [place] 1.014 Urine Protein 2+ H Urine Glucose (UA) Negative Urine Ketones Negative Urine Blood 3+ H Urine Nitrite Negative Urine Bilirubin Negative Urine Urobilinogen 0.2 Ur Leukocyte Esterase 3+ H Urine WBC (Auto) 539 Urine RBC (Auto) 661.7 Urine Casts (Auto) 50 U Epithel Cells (Auto) 5.7 Urine Bacteria (Auto) 43.2 Ur Random Creatinine 22.0 L Ur Random Sodium 105 11/10/18 18:36 WBC RBC Hgb Hct MCV MCH MCHC RDW Plt Count MPV Absolute Neuts (auto) Neutrophils % Lymphocytes % Monocytes % Eosinophils % Basophils % Nucleated RBC % PTT (Actin FS) Sodium Potassium Chloride Carbon Dioxide Anion Gap BUN Creatinine Est GFR (CKD-EPI)AfAm Est GFR (CKD-EPI)NonAf POC Glucometer 132 Random Glucose Calcium Phosphorus Magnesium Total Bilirubin AST ALT Alkaline Phosphatase Total Protein Albumin Urine Color Urine Appearance Urine pH Ur Specific [place] Urine Protein Urine Glucose (UA) Urine Ketones Urine Blood Urine Nitrite Urine Bilirubin Urine Urobilinogen Ur Leukocyte Esterase Urine WBC (Auto) Urine RBC (Auto) Urine Casts (Auto) U Epithel Cells (Auto) Urine Bacteria (Auto) Ur Random Creatinine Ur Random Sodium Active Medications Generic Name Dose Route Start Last Admin Trade Name Freq PRN Reason Stop Dose Admin Albuterol/Ipratropium 1 amp 11/06/18 08:00 11/10/18 19:49 Duoneb - NEB 1 amp RQID LUCRECIA Administration Amantadine HCl 100 mg 11/06/18 10:00 11/10/18 21:17 Symmetrel Oral Solution - GT 100 mg BID LUCRECIA Administration Carbidopa/Levodopa 2 each 11/05/18 22:45 11/11/18 05:36 Sinemet 25/250 - GT 2 each TID LUCRECIA Administration Chlorhexidine Gluconate 1 applic 11/05/18 22:00 11/10/18 21:16 Hibiclens For Decolonization - TP 1 applic HS LUCRECIA Administration Collagenase 1 applic 11/06/18 12:30 11/10/18 09:32 Santyl - TP 1 applic DAILY LUCRECIA Administration Protocol Homatropine HBr 1 drop 11/06/18 10:00 11/10/18 21:16 Isopto Homatropine 5% - OD 1 drop QID LUCRECIA Administration Hydromorphone HCl 0.5 mg 11/09/18 10:38 11/10/18 09:29 Dilaudid Vial - IVPUSH 0.5 mg Q4H PRN Administration PAIN LEVEL 4 - 6 Dextrose/Sodium Chloride 1,000 mls @ 100 mls/hr 11/08/18 11:30 11/10/18 12:29 D5-Ns - IV 100 mls/hr ASDIR LUCRECIA Administration Ceftazidime/Avibactam 1.25 gm/ 100 mls @ 50 mls/hr 11/08/18 15:15 11/11/18 01 :13 Dextrose IVPB 50 mls/hr Q8H-IV LUCRECIA Administration Protocol Metronidazole 500 mg in 100 mls @ 100 mls/hr 11/08/18 15:15 11/11/18 01:14 Flagyl 500mg Premixed Ivpb - IVPB 100 mls/hr Q8H-IV LUCRECIA Administration Heparin Sodium (Porcine) 25, 500 mls @ 20 mls/hr 11/08/18 16:15 11/11/18 04: 00 000 unit/ Sodium Chloride IV 750 unit/hr TITR LUCRECIA 15 mls/hr Titration Protocol 1,000 UNIT/HR Latanoprost 1 drop 11/06/18 22:00 11/10/18 21:18 Xalatan 0.005% Eye Drops - OU 1 drop HS LUCRECIA Administration Metoprolol Tartrate 5 mg 11/06/18 13:04 Lopressor Injection - IVPUSH Q4H PRN TACHYCARDIA Metoprolol Tartrate 5 mg 11/10/18 15:30 11/11/18 04:00 Lopressor Injection - IVPUSH 5 mg Q6H LUCRECIA Administration Pantoprazole Sodium 40 mg 11/06/18 10:45 11/10/18 09:32 Protonix Iv IVPUSH 40 mg DAILY LUCRECIA Administration Tobramycin/Dexamethasone 1 drop 11/06/18 10:00 11/10/18 21:17 Tobradex Ophthalmic Suspension - OU 1 drop BID LUCRECIA Administration ASSESSMENT/PLAN: Mr. Smalls is an 88yo male with Parkinson's, COPD, CHF, HTN, a-fib on Eliquis, respiratory failure with trach and PEG, hx of pros/lawrence cancer who presents for abdominal distention and fevers. He was found to be septic 2/2 pneumonia, as well as SBO, and CBD dilation. UA on 11/10/18 resulted in UTI diagnosis. #sepsis 2/2 PNA -pulmonary exam slightly improved -leukocytosis improving 18.4-->16.5-->11.2 -sputum culture: proteus, pseudomonas, and klebsiella -blood cultures pending, no growth to date -CXR- congestion and infiltration slightly improved in upper lobes compared to yesterday -CT abd/pelvis 11/05/18 showed mod to large pleural effusion on right, moderate on left -continue Ceftazidime/Avibactam and Flagyl -ID following -CBC -palliative care attended visit yesterday #complicated UTI -UA +3 leuk esterase, +2 protein, +3 blood -galarza in place -continue abx for coverage -urine cx #CHF -echo EF 65-70%, no LVH, mild RA dilation, moderate TR, moderate AR, no pericardial effusion -EKG 11/08/18: irregular rhythm, HR 98, QTc 589 -monitor QTc and medications which could increase it -Mg 2.5 -continue to monitor with CXR -d/c Lasix while on D5W -CMP #SBO, resolved Spoke with surgery and agrees ok to remove NG tube because SBO is resolved per CT. Tube was removed by ICU team. Will restart tube feedings #hypoglycemia BGs 110s-150s since started D5W -D5W 100ml/hr -BGM -SSI #CBD dilation -finding on CT abd 11/05. Planned MRCP but not qualifying now. -GI following -CMP #a-fib on Eliquis at admission HR avg 100s-110s -continue metoprolol -d/c heparin -begin Eliquis 2.5mg BID -PTT monitoring #[place] Cr this admission 1.5-->2.7-->3.0-->3.4 -Dr. Ibrahim on board #HTN well-controlled, currently on metoprolol -frequent VS checks #COPD -duo-neb PRN #Parkinson's -holding home meds FEN D5W for hypoglycemia monitor lytes tube feedings DVT Ppe Eliquis DNR Visit type - Emergency Visit Emergency Visit: Yes ED Registration Date: 11/05/18 Care time: The patient presented to the Emergency Department on the above date and was hospitalized for further evaluation of their emergent condition. - New Patient This patient is new to me today: No - Critical Care Critical Care patient: Yes Total Critical Care Time (in minutes): 35 Critical Care Statement: The care of this patient involved high complexity decision making to prevent further life threatening deterioration of the patient 's condition and/or to evaluate & treat vital organ system(s) failure or risk of failure. - Discharge Referral Referred to [facility] Med P.C.: No ATTENDING PHYSICIAN STATEMENT I saw and evaluated the patient. I reviewed the resident's note and discussed the case with the resident. I agree with the resident's findings and plan as documented. SUBJECTIVE: OBJECTIVE: ASSESSMENT AND PLAN:
[2018-11-11 06:23] LABS: BASO % 0.1 % (0-2.0); EOS % 1.2 % (0-4.5); HEMATOCRIT 27.9 % (35.4-49); HEMOGLOBIN 8.9 GM/dL (11.7-16.9); LYMPH % 11.1 % (8-40); MCHC 31.8 g/dl (32.0-35.9); MEAN CELL VOLUME 91.2 fl (80-96); MEAN PLT VOLUME 7.9 fl (7.5-11.1); MONO % 5.4 % (3.8-10.2); NEUT % 82.2 % (42.8-82.8); PLATELET COUNT 179 K/MM3 (134-434); RBC 3.06 M/mm3 (4.00-5.60); RDW 22.2 % (11.9-15.9); WHITE BLOOD COUNT 11.2 K/mm3 (4.0-10.0)
[2018-11-11 06:52] LABS: BLOOD UREA NITROGEN 85.8 mg/dL (7-18); CALCIUM 7.8 mg/dL (8.5-10.1); CREATININE 3.4 mg/dL (0.55-1.3); MAGNESIUM 2.4 mg/dL (1.8-2.4); PHOSPHOROUS 5.3 mg/dL (2.5-4.9); POTASSIUM 3.6 mmol/L (3.5-5.1)
[2018-11-11] MEDS: ALBUTEROL SO4 2.5/IPRATROPIUM 0.5 INH SOL 3 ML VIAL.NEB. NEB SCH ×4 (08:00→20:33)
--- NOTE | 2018-11-11 08:05 | PN ---
Physical Exam: SUBJECTIVE: Patient seen and examined at bedside. pt is awake and alert. pt is non verbal although looks more comfortable. OBJECTIVE: Vital Signs Period Temp Pulse Resp BP Sys/Cope Pulse Ox Last 24 Hr 97.0 F-98.6 F 104-117 24-38 103-145/59-96 100-100 GENERAL: The patient is awake, alert HEAD: Normal with no signs of trauma. EYES: Pupils react to light b/l. extraocular movements intact, sclera anicteric LUNGS: Breath sounds decreased. trached to vent HEART: Regular rate and rhythm, S1, S2 without murmur, rub or gallop. ABDOMEN: Soft, nondistended, tenderness to palpation to RUQ, decreased bowel sounds, PEG in place EXTREMITIES: 2+ pulses, warm, well-perfused, no edema. SKIN: Warm, dry, normal turgor, no rashes or lesions noted Laboratory Last Values WBC 11.2 K/mm3 (4.0-10.0) H 11/11/18 05:05 RBC 3.06 M/mm3 (4.00-5.60) L 11/11/18 05:05 Hgb 8.9 GM/dL (11.7-16.9) L 11/11/18 05:05 Hct 27.9 % (35.4-49) L 11/11/18 05:05 MCV 91.2 fl (80-96) 11/11/18 05:05 MCH 29.0 pg (25.7-33.7) 11/11/18 05:05 MCHC 31.8 g/dl (32.0-35.9) L 11/11/18 05:05 RDW 22.2 % (11.9-15.9) H 11/11/18 05:05 Plt Count 179 K/MM3 (134-434) D 11/11/18 05:05 MPV 7.9 fl (7.5-11.1) 11/11/18 05:05 Absolute Neuts (auto) 9.2 K/mm3 (1.5-8.0) H 11/11/18 05:05 Neutrophils % 82.2 % (42.8-82.8) 11/11/18 05:05 Neutrophils % (Manual) 82.8 % (42.8-82.8) 11/07/18 05:30 Band Neutrophils % 0.0 % 11/07/18 05:30 Lymphocytes % 11.1 % (8-40) D 11/11/18 05:05 Lymphocytes % (Manual) 9.1 % (8-40) D 11/07/18 05:30 Monocytes % 5.4 % (3.8-10.2) 11/11/18 05:05 Monocytes % (Manual) 6 % (3.8-10.2) D 11/07/18 05:30 Eosinophils % 1.2 % (0-4.5) D 11/11/18 05:05 Eosinophils % (Manual) 2.0 % (0-4.5) D 11/07/18 05:30 Basophils % 0.1 % (0-2.0) 11/11/18 05:05 Basophils % (Manual) 0.0 % (0-2.0) 11/07/18 05:30 Myelocytes % (Man) 0 % (0-2) 11/07/18 05:30 Promyelocytes % (Man) 0 % (0-2) 11/07/18 05:30 Blast Cells % (Manual) 0 % (0-0) 11/07/18 05:30 Nucleated RBC % 1 % (0-0) H 11/11/18 05:05 Metamyelocytes 0 % (0-2) 11/07/18 05:30 Hypochromia 0 11/07/18 05:30 Platelet Estimate Normal 11/07/18 05:30 Platelet Comment Present 11/05/18 14:37 Polychromasia 0 11/07/18 05:30 Poikilocytosis 0 11/07/18 05:30 Anisocytosis 0 11/07/18 05:30 Microcytosis 0 11/07/18 05:30 Macrocytosis 0 11/07/18 05:30 Spherocytes 1+ 11/05/18 14:37 Tear Drop Cells 1+ 11/05/18 14:37 Ovalocytes 1+ 11/05/18 14:37 Acanthocytes (Spur) 1+ 11/05/18 14:37 Rouleaux 3+ 11/07/18 05:30 PT with INR 26.40 SEC (9.7-13.0) H 11/06/18 05:30 INR 2.22 (0.83-1.09) H 11/06/18 05:30 PTT (Actin FS) 97.3 SECONDS (25.2-36.5) H 11/11/18 05:05 Anticoagulation Therapy No Result Required. 11/08/18 07:00 Puncture Site Right radial 11/09/18 11:00 ABG pH 7.33 (7.35-7.45) L 11/09/18 11:00 ABG pCO2 at Pt Temp 39.8 mmHg (35-45) 11/09/18 11:00 ABG pO2 at Pt Temp 73.0 mmHg (80-100) L 11/09/18 11:00 ABG HCO3 20.5 mmol/L (22-27) L 11/09/18 11:00 ABG O2 Sat (Measured) 92.2 % (95-98) L 11/09/18 11:00 ABG O2 Content 10.1 % vol 11/09/18 11:00 ABG Base Excess -4.5 meq/l (-2-2) L 11/09/18 11:00 Santiago Test Positive 11/09/18 11:00 VBG pH 7.49 (7.31-7.41) H 11/05/18 14:40 POC VBG pCO2 34.4 mmHg (38-52) L 11/05/18 14:40 POC VBG pO2 54.9 mmHg (28-48) H 11/05/18 14:40 VBG HCO3 26.1 mmol/L (23-29) 11/05/18 14:40 VBG O2 Sat (Stacey) 86.9 % (70-80) H 11/05/18 14:40 VBG Base Excess 3.6 meq/l (-2-2) H 11/05/18 14:40 Carboxyhemoglobin 1.6 % (0-2) 11/05/18 20:05 Methemoglobin < 1.0 % (0-2) 11/05/18 20:05 O2 Delivery Device Vent 11/09/18 11:00 Oxygen Flow Rate 40% 11/09/18 11:00 Vent Mode A/c 11/09/18 11:00 Vent Rate 12 11/09/18 11:00 Mechanical Rate Yes 11/09/18 11:00 PEEP 5.0 cmH2O 11/09/18 11:00 Pressure Support Vent 450 11/09/18 11:00 Sodium 142 mmol/L (136-145) 11/11/18 05:05 Potassium 3.6 mmol/L (3.5-5.1) 11/11/18 05:05 Chloride 107 mmol/L (98-107) 11/11/18 05:05 Carbon Dioxide 22 mmol/L (21-32) 11/11/18 05:05 Anion Gap 12 MMOL/L (8-16) 11/11/18 05:05 BUN 85.8 mg/dL (7-18) H 11/11/18 05:05 Creatinine 3.4 mg/dL (0.55-1.3) H 11/11/18 05:05 Est GFR (CKD-EPI)AfAm 17.66 11/11/18 05:05 Est GFR (CKD-EPI)NonAf 15.24 11/11/18 05:05 POC Glucometer 132 UNITS (80-120) 11/10/18 18:36 Random Glucose 120 mg/dL (74-106) H 11/11/18 05:05 Lactic Acid 1.8 mmol/L (0.4-2.0) 11/11/18 05:05 Calcium 7.8 mg/dL (8.5-10.1) L 11/11/18 05:05 Phosphorus 5.3 mg/dL (2.5-4.9) H 11/11/18 05:05 Magnesium 2.4 mg/dL (1.8-2.4) 11/11/18 05:05 Total Bilirubin 2.2 mg/dL (0.2-1) H 11/10/18 05:05 Direct Bilirubin 0.8 mg/dL (0.0-0.2) H 11/07/18 05:30 AST 393 U/L (15-37) H 11/10/18 05:05 ALT 224 U/L (13-61) H 11/10/18 05:05 Alkaline Phosphatase 127 U/L (45-117) H 11/10/18 05:05 Troponin I 0.05 ng/ml (0.00-0.05) 11/06/18 05:30 B-Natriuretic Peptide 22805.0 pg/ml (5-450) H 11/05/18 14:45 Total Protein 5.3 g/dl (6.4-8.2) L 11/10/18 05:05 Albumin 1.8 g/dl (3.4-5.0) L 11/10/18 05:05 Urine Color Yellow 11/10/18 16:45 Urine Appearance Turbid 11/10/18 16:45 Urine pH 5.0 (5.0-8.0) 11/10/18 16:45 Ur Specific [place] 1.014 (1.010-1.035) 11/10/18 16:45 Urine Protein 2+ (NEGATIVE) H 11/10/18 16:45 Urine Glucose (UA) Negative (NEGATIVE) 11/10/18 16:45 Urine Ketones Negative (NEGATIVE) 11/10/18 16:45 Urine Blood 3+ (NEGATIVE) H 11/10/18 16:45 Urine Nitrite Negative (NEGATIVE) 11/10/18 16:45 Urine Bilirubin Negative (NEGATIVE) 11/10/18 16:45 Urine Urobilinogen 0.2 mg/dL (0.2-1.0) 11/10/18 16:45 Ur Leukocyte Esterase 3+ (NEGATIVE) H 11/10/18 16:45 Urine WBC (Auto) 539 /hpf (0-5) 11/10/18 16:45 Urine RBC (Auto) 661.7 /hpf (0-4) 11/10/18 16:45 Urine Casts (Auto) 50 /lpf (0-8) 11/10/18 16:45 U Pathogenic Cast Auto Granular cast /lpf (NEGATIVE) 11/05/18 15:00 U Epithel Cells (Auto) 5.7 /HPF (0-5/HPF) 11/10/18 16:45 Urine Bacteria (Auto) 43.2 /hpf (NEGATIVE) 11/10/18 16:45 Urine Yeast (Auto) Present (NEGATIVE) 11/05/18 15:00 Ur Random Creatinine 22.0 mg/dL (30-150) L 11/10/18 16:45 Ur Random Sodium 105 MMOL/L (40-220) 11/10/18 16:45 Random Vancomycin 28.8 ug/ml (18-26) H 11/11/18 05:05 Vancomycin Pre-Dose 33.6 ug/ml (18-26) H* 11/09/18 15:00 Current Medications Albuterol/Ipratropium (Duoneb -) 1 amp NEB RQID LUCRECIA Last Admin: 11/10/18 19:49 Dose: 1 amp Amantadine HCl (Symmetrel Oral Solution -) 100 mg GT BID LUCRECIA Last Admin: 11/10/18 21:17 Dose: 100 mg Carbidopa/Levodopa (Sinemet 25/250 -) 2 each GT TID LUCRECIA Last Admin: 11/11/18 05:36 Dose: 2 each Chlorhexidine Gluconate (Hibiclens For Decolonization -) 1 applic TP HS LUCRECIA Last Admin: 11/10/18 21:16 Dose: 1 applic Collagenase (Santyl -) 1 applic TP DAILY LUCRECIA; Protocol Last Admin: 11/10/18 09:32 Dose: 1 applic Homatropine HBr (Isopto Homatropine 5% -) 1 drop OD QID LUCRECIA Last Admin: 11/10/18 21:16 Dose: 1 drop Hydromorphone HCl (Dilaudid Vial -) 0.5 mg IVPUSH Q4H PRN PRN Reason: PAIN LEVEL 4 - 6 Last Admin: 11/10/18 09:29 Dose: 0.5 mg Dextrose/Sodium Chloride (D5-Ns -) 1,000 mls @ 100 mls/hr IV ASDIR LUCRECIA Last Admin: 11/10/18 12:29 Dose: 100 mls/hr Ceftazidime/Avibactam 1.25 gm/ (Dextrose) 100 mls @ 50 mls/hr IVPB Q8H-IV LUCRECIA; Protocol Last Admin: 11/11/18 01:13 Dose: 50 mls/hr Metronidazole (Flagyl 500mg Premixed Ivpb -) 500 mg in 100 mls @ 100 mls/hr IVPB Q8H-IV LUCRECIA Last Admin: 11/11/18 01:14 Dose: 100 mls/hr Heparin Sodium (Porcine) 25, (000 unit/ Sodium Chloride) 500 mls @ 20 mls/hr IV TITR LUCRECIA; Protocol Last Titration: 11/11/18 07:00 Dose: 0 unit/hr, 0 mls/hr Latanoprost (Xalatan 0.005% Eye Drops -) 1 drop OU HS LUCRECIA Last Admin: 11/10/18 21:18 Dose: 1 drop Metoprolol Tartrate (Lopressor Injection -) 5 mg IVPUSH Q4H PRN PRN Reason: TACHYCARDIA Metoprolol Tartrate (Lopressor Injection -) 5 mg IVPUSH Q6H [facility] Last Admin: 11/11/18 04:00 Dose: 5 mg Pantoprazole Sodium (Protonix Iv) 40 mg IVPUSH DAILY [facility] Last Admin: 11/10/18 09:32 Dose: 40 mg Tobramycin/Dexamethasone (Tobradex Ophthalmic Suspension -) 1 drop OU BID [facility] Last Admin: 11/10/18 21:17 Dose: 1 drop Pelvis/ Renal U/S IMPRESSION: Bilateral renal sinus lipomatosis and cortical thinning. Exophytic right renal simple cyst measuring 4 cm appear No gross renal hydronephrosis or hydroureter, bilaterally a Partially distended urinary bladder with a Salguero catheter present. There is apparent thickening of its wall that may be at least partially due to under distention. CXR: 11/11 A single view of the chest has been submitted. Since 11/10/2018 at 0621 hours the tracheostomy tube and NG tube are again noted. The tip of the NG tube is difficult to see. The bilateral pulmonary and pleural changes have diminished slightly in the upper lobes. Correlation recommended. CT abdomen/ Pelvis: IMPRESSION: A gastrostomy tube and nasogastric tube are in satisfactory position. Oral contrast is present within an essentially collapsed stomach without extravasation of contrast. Hyperdense slightly over distended gallbladder compatible with vicarious excretion from prior intravenous injection. Large right renal exophytic cyst again seen without interval change. There is no evidence of small bowel obstruction. The small bowel loops are no longer dilated. Diverticulosis coli mainly in the proximal and mid sigmoid colon without evidence of acute diverticulitis. Moderate amount of fecal residue in the rectosigmoid junction suggestive of constipation. Cannot rule out impaction. Correlate clinically. Right hip prosthesis in satisfactory position. Marked degenerative changes involving the left hip joint. Moderate to marked degenerative disc disease at L3-L4 level. Fusion of the right sacroiliac joints with surrounding heterogeneous low-attenuation bone density that may be degenerative. Cannot rule out Paget's disease. Correlate clinically. ASSESSMENT/PLAN: 88 yo M w/ PMH Parkinson's, COPD, HTN, CHF, Afib, respiratory failure ( trached to vent). Pt has PEG. Pt presented to the ED for abdominal distention. Pt is admitted for Severe Sepsis 2/2 Pneumonia and possible SBO. ARDS Chronic Respiratory Failure SBO Afib HTN CHF Neuro: -Awake, alert. -pt has been non verbal since he had trach, baseline confirmed with son -hold sedatives -c/w sinemet 25/250 -pain mgmt w/ dilauded 0.5 mg Cardiology -Afib -HTN -HFpEF -c/w beta rebecca -hold antihypertensives as pt is hypotensive today -D50-NS bolus -d/c lasix -[facility] [place]: 589 -Echo EF 65-70 %, LV fxn normal, mild , moderate AR , TR Respiratory -Acute on Chronic respiratory failure -ARDS -Pneumonia -Trached to vent -Vent settings changed : A/C mode Rate 12, TV 450, Peak flow 60, PEEP 5, %O2 40 -CXRay worsening R sided infiltrate -sputum culture growing Klebsiella pneumoniae, Pseudomonas Aerginosa, Proteus. Sensitivities reviewed RENAL - [place], worsening Cr 3.4 - monitor urine output. Urine output around 250 yesterday -bladder u/s reviewed, findings stated above. -FENa =11.4% -Urine studies GASTROINTESTINAL -SBO, resolved - mild nonspecific CBD dilation -Abdominal XR reviewed, awaiting CT abdomen -NGT decompression -Gi recommendations appreciated -possible MRCP once optimized -elevated LFTs likely 2/2 sepsis , continue to trend INFECTIOUS DISEASE -Sepsis likely 2/2 pneumonia -lactate downtrending 10.8-->3.8 -leukocytosis 14.7-->18.4--> 11.2 -Dr. Vogt consulted, recs appreciated -vanc level, DC vancomycin -flagyl as per ID recs day 4 -c/w Ceftazidime/Avibactam day 4 HEMATOLOGY - no acute issues PSYCHIATRIC - no acute events F/E/N -D50-NS @ 50mls -continue to monitor electrolytes and replete as necessary -continue w/ feeds PROPHYLAXIS - SCDs CODE - DNR -Case discussed with family. family wants all interventions, but keep DNR. consent signed for central line if needed. -Paliative Care DISPO: continue to monitor until medically stabilized. Visit type - Emergency Visit Emergency Visit: No - New Patient This patient is new to me today: No - Critical Care Critical Care patient: Yes Total Critical Care Time (in minutes): 36 Critical Care Statement: The care of this patient involved high complexity decision making to prevent further life threatening deterioration of the patient 's condition and/or to evaluate & treat vital organ system(s) failure or risk of failure. - Discharge Referral Referred to [facility] Med P.C.: No ATTENDING PHYSICIAN STATEMENT I saw and evaluated the patient. I reviewed the resident's note and discussed the case with the resident. I agree with the resident's findings and plan as documented. SUBJECTIVE: OBJECTIVE: ASSESSMENT AND PLAN:
[2018-11-11 08:58] LABS: ANISOCYTOSIS 2+; MACROCYTOSIS 1+; OVALOCYTE 1+; PLATELET ESTIMATE NORMAL; TARGET CELLS 1+; TEAR DROP CELLS 1+
[2018-11-11] MEDS ORDERED: PT OWN MED DRAWER 7, Y5N ONE ×2 (09:24→17:45)
[2018-11-11] MEDS: PANTOPRAZOLE SODIUM 40 MG VIAL IVPUSH SCH (09:42)
[2018-11-11] MEDS: AMANTADINE HCL 100MG/10 ML UNIT DOSE CUPS GT SCH ×2 (09:42→21:55)
[2018-11-11 11:41] LABS: ALBUMIN 1.6 g/dl (3.4-5.0); BILIRUBIN,DIRECT 1.5 mg/dL (0.0-0.2); BILIRUBIN,TOTAL 2.1 mg/dL (0.2-1); TOT PROT 5.1 g/dl (6.4-8.2)
--- NOTE | 2018-11-11 11:41 | PN ---
Teaching Attending Note Name of Resident: Marian Marquez ATTENDING PHYSICIAN STATEMENT I saw and evaluated the patient. I reviewed the resident's note and discussed the case with the resident. I agree with the resident's findings and plan as documented. SUBJECTIVE: Pt seen and examined in the ICU. Vented, more alert, less tachypneic. Remains oliguric. OBJECTIVE: Vital Signs Period Temp Pulse Resp BP Sys/Cope Pulse Ox Last 24 Hr 97.0 F-98.6 F 101-114 24-38 88-144/59-96 99-100 Intake & Output 11/08/18 11/09/18 11/10/18 11/11/18 23:59 23:59 23:59 23:59 Intake Total 1300 4756 3641 Output Total 80 1000 350 100 Balance 1220 3756 3291 -100 Weight 85.8 kg 85.3 kg 86.001 kg 88.3 kg Gen: vented, less tachypneic Heart: tachycardic, irregular Lung: scattered rhonchi Abd: soft, nontender Ext: + edema CBC, BMP 11/11/18 05:05 11/11/18 05:05 Active Medications Albuterol/Ipratropium (Duoneb -) 1 amp NEB RQID [facility] Last Admin: 11/11/18 08:00 Dose: 1 amp Amantadine HCl (Symmetrel Oral Solution -) 100 mg GT BID [facility] Last Admin: 11/11/18 09:42 Dose: 100 mg Carbidopa/Levodopa (Sinemet 25/250 -) 2 each GT TID [facility] Last Admin: 11/11/18 05:36 Dose: 2 each Chlorhexidine Gluconate (Hibiclens For Decolonization -) 1 applic TP HS [facility] Last Admin: 11/10/18 21:16 Dose: 1 applic Collagenase (Santyl -) 1 applic TP DAILY [facility]; Protocol Last Admin: 11/10/18 09:32 Dose: 1 applic Homatropine HBr (Isopto Homatropine 5% -) 1 drop OD QID [facility] Last Admin: 11/10/18 21:16 Dose: 1 drop Hydromorphone HCl (Dilaudid Vial -) 0.5 mg IVPUSH Q4H PRN PRN Reason: PAIN LEVEL 4 - 6 Last Admin: 11/10/18 09:29 Dose: 0.5 mg Ceftazidime/Avibactam 1.25 gm/ (Dextrose) 100 mls @ 50 mls/hr IVPB Q8H-IV [facility]; Protocol Last Admin: 11/11/18 09:44 Dose: 50 mls/hr Metronidazole (Flagyl 500mg Premixed Ivpb -) 500 mg in 100 mls @ 100 mls/hr IVPB Q8H-IV [facility] Last Admin: 11/11/18 09:45 Dose: 100 mls/hr Heparin Sodium (Porcine) 25, (000 unit/ Sodium Chloride) 500 mls @ 20 mls/hr IV TITR [facility]; Protocol Last Titration: 11/11/18 07:30 Dose: 650 unit/hr, 13 mls/hr Dextrose/Sodium Chloride (D5-Ns -) 1,000 mls @ 50 mls/hr IV ASDIR [facility] Latanoprost (Xalatan 0.005% Eye Drops -) 1 drop OU HS [facility] Last Admin: 11/10/18 21:18 Dose: 1 drop Metoprolol Tartrate (Lopressor Injection -) 5 mg IVPUSH Q4H PRN PRN Reason: TACHYCARDIA Metoprolol Tartrate (Lopressor Injection -) 5 mg IVPUSH Q6H [facility] Last Admin: 11/11/18 09:42 Dose: 5 mg Pantoprazole Sodium (Protonix Iv) 40 mg IVPUSH DAILY [facility] Last Admin: 11/11/18 09:42 Dose: 40 mg Tobramycin/Dexamethasone (Tobradex Ophthalmic Suspension -) 1 drop OU BID [facility] Last Admin: 11/10/18 21:17 Dose: 1 drop ASSESSMENT AND PLAN: Chronic Respiratory Failure Pneumonia Severe Sepsis Acute Kidney Injury Lactic Acidosis +Troponins likely Demand Ischemia Atrial Fibrillation COPD HTN Parkinsons Disease - antibiotics per ID - decrease IVF rate - monitor urine output, creatinine - rate control - continue anticoagulation - continue low rate enteral feeds - DVT/GI prophylaxis - continue discussions regarding goals of care - continue ICU monitoring critical care time spent in reviewing chart, evaluating patient and formulating plan 35 min
[2018-11-11] MEDS: COLLAGENASE CLOSTRIDIUM HIST. 30 GRAMS TUBE TP SCH (12:02)
[2018-11-11] MEDS: TOBRA 0.3%/DEXAMETH 0.1% OPHTHALMIC SUSP 2.5 ML BTL OU SCH ×2 (12:02→21:56)
[2018-11-11] MEDS: [UNRECOGNIZED DRUG - OTHER] OD SCH ×4 (12:02→21:56)
[2018-11-11] MEDS: DEXTROSE 5%-NORMAL SALINE 1,000 ML IV SCH (12:03)
--- NOTE | 2018-11-11 13:10 | PN ---
Progress Note, Physician History of Present Illness: Pt seen and examined at bedside. He remains in the ICU. He appears comfortable. He is tolerating feeds. - Current Medication List Current Medications: Active Medications Albuterol/Ipratropium (Duoneb -) 1 amp NEB RQID [facility] Last Admin: 11/11/18 08:00 Dose: 1 amp Amantadine HCl (Symmetrel Oral Solution -) 100 mg GT BID [facility] Last Admin: 11/11/18 09:42 Dose: 100 mg Carbidopa/Levodopa (Sinemet 25/250 -) 2 each GT TID [facility] Last Admin: 11/11/18 05:36 Dose: 2 each Chlorhexidine Gluconate (Hibiclens For Decolonization -) 1 applic TP HS [facility] Last Admin: 11/10/18 21:16 Dose: 1 applic Collagenase (Santyl -) 1 applic TP DAILY [facility]; Protocol Last Admin: 11/11/18 12:02 Dose: 1 applic Homatropine HBr (Isopto Homatropine 5% -) 1 drop OD QID [facility] Last Admin: 11/11/18 12:02 Dose: 1 drop Hydromorphone HCl (Dilaudid Vial -) 0.5 mg IVPUSH Q4H PRN PRN Reason: PAIN LEVEL 4 - 6 Last Admin: 11/10/18 09:29 Dose: 0.5 mg Ceftazidime/Avibactam 1.25 gm/ (Dextrose) 100 mls @ 50 mls/hr IVPB Q8H-IV [facility]; Protocol Last Admin: 11/11/18 09:44 Dose: 50 mls/hr Metronidazole (Flagyl 500mg Premixed Ivpb -) 500 mg in 100 mls @ 100 mls/hr IVPB Q8H-IV [facility] Last Admin: 11/11/18 09:45 Dose: 100 mls/hr Heparin Sodium (Porcine) 25, (000 unit/ Sodium Chloride) 500 mls @ 20 mls/hr IV TITR [facility]; Protocol Last Titration: 11/11/18 07:30 Dose: 650 unit/hr, 13 mls/hr Dextrose/Sodium Chloride (D5-Ns -) 1,000 mls @ 50 mls/hr IV ASDIR [facility] Last Admin: 11/11/18 12:03 Dose: 50 mls/hr Latanoprost (Xalatan 0.005% Eye Drops -) 1 drop OU HS [facility] Last Admin: 11/10/18 21:18 Dose: 1 drop Metoprolol Tartrate (Lopressor Injection -) 5 mg IVPUSH Q4H PRN PRN Reason: TACHYCARDIA Metoprolol Tartrate (Lopressor Injection -) 5 mg IVPUSH Q6H [facility] Last Admin: 11/11/18 09:42 Dose: 5 mg Pantoprazole Sodium (Protonix Iv) 40 mg IVPUSH DAILY [facility] Last Admin: 11/11/18 09:42 Dose: 40 mg Tobramycin/Dexamethasone (Tobradex Ophthalmic Suspension -) 1 drop OU BID [facility] Last Admin: 11/11/18 12:02 Dose: 1 drop - Objective Vital Signs: Vital Signs Temperature 97.6 F 11/11/18 10:00 Pulse Rate 108 H 11/11/18 12:00 Respiratory Rate 36 H 11/11/18 12:00 Blood Pressure 95/61 11/11/18 12:00 O2 Sat by Pulse Oximetry (%) 99 11/11/18 09:00 Constitutional: Yes: Calm Eyes: Yes: Conjunctiva Clear Neck: Yes: Other (trache) Cardiovascular: Yes: S1, S2 Respiratory: Yes: Mechanically Ventilated Gastrointestinal: Yes: Soft, Other (peg) Genitourinary: Yes: Salguero Present Musculoskeletal: Yes: Muscle Weakness Edema: Yes Edema: LLE: 1+, RLE: 1+ Neurological: Yes: Confusion, Pre-Existing Deficit Labs: CBC, BMP 11/11/18 05:05 11/11/18 05:05 INR, PTT INR 2.22 (0.83-1.09) H 11/06/18 05:30 - ....Imaging Chest X-ray: Report Reviewed Problem List - Problems (1) [place] (acute kidney injury) Code(s): N17.9 - ACUTE KIDNEY FAILURE, UNSPECIFIED (2) Atrial fibrillation with RVR Code(s): I48.91 - UNSPECIFIED ATRIAL FIBRILLATION (3) Ileus Code(s): K56.7 - ILEUS, UNSPECIFIED (4) Sepsis Code(s): A41.9 - SEPSIS, UNSPECIFIED ORGANISM Qualifiers: Sepsis type: sepsis due to unspecified organism Sepsis acute organ dysfunction status: with acute organ dysfunction Severe sepsis acute organ dysfunction type: acute renal failure Acute renal failure type: unspecified Severe sepsis shock status: without septic shock Qualified Code(s): A41.9 - Sepsis, unspecified organism; R65.20 - Severe sepsis without septic shock; N17.9 - Acute kidney failure, unspecified Assessment/Plan Current Medications Generic Name Dose Route Start Last Admin Trade Name Freq PRN Reason Stop Dose Admin Albuterol/Ipratropium 1 amp 11/06/18 08:00 11/11/18 08:00 Duoneb - NEB 1 amp RQID [facility] Administration Amantadine HCl 100 mg 11/06/18 10:00 11/11/18 09:42 Symmetrel Oral Solution - GT 100 mg BID [facility] Administration Carbidopa/Levodopa 2 each 11/05/18 22:45 11/11/18 05:36 Sinemet 25/250 - GT 2 each TID [facility] Administration Chlorhexidine Gluconate 1 applic 11/05/18 22:00 11/10/18 21:16 Hibiclens For Decolonization - TP 1 applic HS [facility] Administration Collagenase 1 applic 11/06/18 12:30 11/11/18 12:02 Santyl - TP 1 applic DAILY [facility] Administration Protocol Homatropine HBr 1 drop 11/06/18 10:00 11/11/18 12:02 Isopto Homatropine 5% - OD 1 drop QID [facility] Administration Hydromorphone HCl 0.5 mg 11/09/18 10:38 11/10/18 09:29 Dilaudid Vial - IVPUSH 0.5 mg Q4H PRN Administration PAIN LEVEL 4 - 6 Ceftazidime/Avibactam 1.25 gm/ 100 mls @ 50 mls/hr 11/08/18 15:15 11/11/18 09 :44 Dextrose IVPB 50 mls/hr Q8H-IV [facility] Administration Protocol Metronidazole 500 mg in 100 mls @ 100 mls/hr 11/08/18 15:15 11/11/18 09:45 Flagyl 500mg Premixed Ivpb - IVPB 100 mls/hr Q8H-IV [facility] Administration Heparin Sodium (Porcine) 25, 500 mls @ 20 mls/hr 11/08/18 16:15 11/11/18 07: 30 000 unit/ Sodium Chloride IV 650 unit/hr TITR [facility] 13 mls/hr Titration Protocol 1,000 UNIT/HR Dextrose/Sodium Chloride 1,000 mls @ 50 mls/hr 11/11/18 11:20 11/11/18 12:03 D5-Ns - IV 50 mls/hr ASDIR [facility] Administration Latanoprost 1 drop 11/06/18 22:00 11/10/18 21:18 Xalatan 0.005% Eye Drops - OU 1 drop HS [facility] Administration Metoprolol Tartrate 5 mg 11/06/18 13:04 Lopressor Injection - IVPUSH Q4H PRN [facility]ARD[facility] Metoprolol Tartrate 5 mg 11/10/18 15:30 11/11/18 09:42 Lopressor Injection - IVPUSH 5 mg Q6H [facility] Administration Pantoprazole Sodium 40 mg 11/06/18 10:45 11/11/18 09:42 Protonix Iv IVPUSH 40 mg DAILY [facility] Administration Tobramycin/Dexamethasone 1 drop 11/06/18 10:00 11/11/18 12:02 Tobradex Ophthalmic Suspension - OU 1 drop BID [facility] Administration Impression: 1. [place] 2. sepsis 3. PNA 4. SBO 5. Parkinson's 6. a-fib 7. chronic resp failure 8. severe sepsis 9. lactic acidosis 10. copd 11. hx of htn Plan - renal function continues to worsen - monitor urine output and lytes daily - monitor vanco levels, improving - follow urine eos - ordered serologic workup - [place] likely multifactorial in septic patient with multiple comorbidities - cont vent support - cont ICU management - no indication for CUT OFF SAWYER LOG at this point
--- NOTE | 2018-11-11 16:28 | PN ---
S Progress Note Note: Case d/w son over the phone. Requesting shiley and dialysis if becomes recommended by team. Also requesting central line insertion if situation arises. Carrie Wallace MD PGY-3 ICU team
--- NOTE | 2018-11-11 17:15 | PN ---
Progress Note (short form) - Note Progress Note: intubated Vital Signs Period Temp Pulse Resp BP Sys/Cope Pulse Ox Last 24 Hr 97.0 F-98.2 F 101-120 25-38 88-128/59-80 99-100 cor-rrr lungs decreased bases abd soft,+GT ext +edema galarza CBC, BMP 11/11/18 05:05 11/11/18 05:05 Microbiology 11/08/18 17:00 Blood - Peripheral Venous Blood Culture - Preliminary NO GROWTH OBTAINED AFTER 72 HOURS, INCUBATION TO CONTINUE FOR 2 DAYS. 11/08/18 16:35 Blood - Peripheral Venous Blood Culture - Preliminary NO GROWTH OBTAINED AFTER 72 HOURS, INCUBATION TO CONTINUE FOR 2 DAYS. 11/05/18 15:00 Blood - Peripheral Venous Blood Culture - Final NO GROWTH AFTER 5 DAYS INCUBATION 11/05/18 14:30 Blood - Peripheral Venous Blood Culture - Final NO GROWTH AFTER 5 DAYS INCUBATION 11/06/18 13:00 Sputum - Endotrachea Suction/Ventilator Gram Stain - Final 11/06/18 13:00 Sputum - Endotrachea Suction/Ventilator Sputum Culture - Final Klebsiella Pneumoniae - Esbl Pseudomonas Aeruginosa Proteus Mirabilus - Esbl Produ 11/06/18 18:00 Urine For Antigen Detection Legionella Antigen - Final 11/06/18 18:00 Urine For Antigen Detection Streptococcus pneumoniae Antigen (M - Final 11/05/18 15:00 Urine - Urine - Catheterized Urine Culture - Final Yeast Like Organism Current Medications Albuterol/Ipratropium (Duoneb -) 1 amp NEB RQID [facility] Last Admin: 11/11/18 16:13 Dose: 1 amp Amantadine HCl (Symmetrel Oral Solution -) 100 mg GT BID [facility] Last Admin: 11/11/18 09:42 Dose: 100 mg Apixaban (Eliquis -) 2.5 mg GT BID [facility] Carbidopa/Levodopa (Sinemet 25/250 -) 2 each GT TID [facility] Last Admin: 11/11/18 13:47 Dose: 2 each Chlorhexidine Gluconate (Hibiclens For Decolonization -) 1 applic TP HS [facility] Last Admin: 11/10/18 21:16 Dose: 1 applic Collagenase (Santyl -) 1 applic TP DAILY [facility]; Protocol Last Admin: 11/11/18 12:02 Dose: 1 applic Homatropine HBr (Isopto Homatropine 5% -) 1 drop OD QID [facility] Last Admin: 11/11/18 15:30 Dose: 1 drop Hydromorphone HCl (Dilaudid Vial -) 0.5 mg IVPUSH Q4H PRN PRN Reason: PAIN LEVEL 4 - 6 Last Admin: 11/10/18 09:29 Dose: 0.5 mg Ceftazidime/Avibactam 1.25 gm/ (Dextrose) 100 mls @ 50 mls/hr IVPB Q8H-IV [facility]; Protocol Last Admin: 11/11/18 09:44 Dose: 50 mls/hr Metronidazole (Flagyl 500mg Premixed Ivpb -) 500 mg in 100 mls @ 100 mls/hr IVPB Q8H-IV [facility] Last Admin: 11/11/18 09:45 Dose: 100 mls/hr Dextrose/Sodium Chloride (D5-Ns -) 1,000 mls @ 50 mls/hr IV ASDIR [facility] Last Admin: 11/11/18 12:03 Dose: 50 mls/hr Latanoprost (Xalatan 0.005% Eye Drops -) 1 drop OU HS [facility] Last Admin: 11/10/18 21:18 Dose: 1 drop Metoprolol Tartrate (Lopressor Injection -) 5 mg IVPUSH Q4H PRN PRN Reason: TACHYCARDIA Metoprolol Tartrate (Lopressor Injection -) 5 mg IVPUSH Q6H [facility] Last Admin: 11/11/18 15:32 Dose: 5 mg Pantoprazole Sodium (Protonix Iv) 40 mg IVPUSH DAILY [facility] Last Admin: 11/11/18 09:42 Dose: 40 mg Tobramycin/Dexamethasone (Tobradex Ophthalmic Suspension -) 1 drop OU BID [facility] Last Admin: 11/11/18 12:02 Dose: [address] scan noted a/p sepsis- probable pneumonia continue ceftazidime/avibactam and flagyl chronic 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
--- NOTE | 2018-11-11 18:00 | PN ---
Teaching Attending Note Name of Resident: Renate Montilla ATTENDING PHYSICIAN STATEMENT I saw and evaluated the patient. I reviewed the resident's note and discussed the case with the resident. I agree with the resident's findings and plan as documented. SUBJECTIVE: Non-verbal due to Trach/Vent. OBJECTIVE: Afebrile, Hemodynamically Stable. Awake, Alert. Last Vital Signs Temp Pulse Resp BP Pulse Ox 97.8 F 118 H 26 H 105/68 99 11/11/18 14:00 11/11/18 16:00 11/11/18 17:29 11/11/18 16:00 11/11/18 17:29 HEENT - Atraumatic, Normocephalic. s/p Trach/Vent Heart - S1, S2, Irregular. Lungs - good air entry bilaterally Abdomen - PEG in situ. Soft. Bowel Sounds normal. Extremities - Edema +. No calf tenderness. Laboratory Results - last 24 hr 11/10/18 11/10/18 11/10/18 16:45 16:45 18:36 WBC RBC Hgb Hct MCV MCH MCHC RDW Plt Count MPV Absolute Neuts (auto) Neutrophils % Neutrophils % (Manual) Band Neutrophils % Lymphocytes % Lymphocytes % (Manual) Monocytes % Monocytes % (Manual) Eosinophils % Eosinophils % (Manual) Basophils % Basophils % (Manual) Myelocytes % (Man) Promyelocytes % (Man) Blast Cells % (Manual) Nucleated RBC % Metamyelocytes Hypochromia Platelet Estimate Polychromasia Poikilocytosis Anisocytosis Microcytosis Macrocytosis Target Cells Tear Drop Cells Ovalocytes Lane Cells PTT (Actin FS) Sodium Potassium Chloride Carbon Dioxide Anion Gap BUN Creatinine Est GFR (CKD-EPI)AfAm Est GFR (CKD-EPI)NonAf POC Glucometer 132 Random Glucose Lactic Acid Calcium Phosphorus Magnesium Total Bilirubin Direct Bilirubin AST ALT Alkaline Phosphatase Total Protein Albumin Urine Color Yellow Urine Appearance Turbid Urine pH 5.0 Ur Specific [place] 1.014 Urine Protein 2+ H Urine Glucose (UA) Negative Urine Ketones Negative Urine Blood 3+ H Urine Nitrite Negative Urine Bilirubin Negative Urine Urobilinogen 0.2 Ur Leukocyte Esterase 3+ H Urine WBC (Auto) 539 Urine RBC (Auto) 661.7 Urine Casts (Auto) 50 U Epithel Cells (Auto) 5.7 Urine Bacteria (Auto) 43.2 Ur Random Creatinine 22.0 L Ur Random Sodium 105 Random Vancomycin 11/11/18 11/11/18 11/11/18 05:05 05:05 05:05 WBC RBC Hgb Hct MCV MCH MCHC RDW Plt Count MPV Absolute Neuts (auto) Neutrophils % Neutrophils % (Manual) Band Neutrophils % Lymphocytes % Lymphocytes % (Manual) Monocytes % Monocytes % (Manual) Eosinophils % Eosinophils % (Manual) Basophils % Basophils % (Manual) Myelocytes % (Man) Promyelocytes % (Man) Blast Cells % (Manual) Nucleated RBC % Metamyelocytes Hypochromia Platelet Estimate Polychromasia Poikilocytosis Anisocytosis Microcytosis Macrocytosis Target Cells Tear Drop Cells Ovalocytes Lane Cells PTT (Actin FS) 97.3 H Sodium Potassium Chloride Carbon Dioxide Anion Gap BUN Creatinine Est GFR (CKD-EPI)AfAm Est GFR (CKD-EPI)NonAf POC Glucometer Random Glucose Lactic Acid 1.8 Calcium Phosphorus Magnesium Total Bilirubin Direct Bilirubin AST ALT Alkaline Phosphatase Total Protein Albumin Urine Color Urine Appearance Urine pH Ur Specific [place] Urine Protein Urine Glucose (UA) Urine Ketones Urine Blood Urine Nitrite Urine Bilirubin Urine Urobilinogen Ur Leukocyte Esterase Urine WBC (Auto) Urine RBC (Auto) Urine Casts (Auto) U Epithel Cells (Auto) Urine Bacteria (Auto) Ur Random Creatinine Ur Random Sodium Random Vancomycin 28.8 H 11/11/18 11/11/18 11/11/18 05:05 05:05 11:46 WBC 11.2 H RBC 3.06 L Hgb 8.9 L Hct 27.9 L MCV 91.2 MCH 29.0 MCHC 31.8 L RDW 22.2 H Plt Count 179 D MPV 7.9 Absolute Neuts (auto) 9.2 H Neutrophils % 82.2 Neutrophils % (Manual) 81.0 Band Neutrophils % 1.0 Lymphocytes % 11.1 D Lymphocytes % (Manual) 10.0 Monocytes % 5.4 Monocytes % (Manual) 2 L Eosinophils % 1.2 D Eosinophils % (Manual) 2.0 Basophils % 0.1 Basophils % (Manual) 0.0 Myelocytes % (Man) 0 Promyelocytes % (Man) 0 Blast Cells % (Manual) 0 Nucleated RBC % 1 H Metamyelocytes 2 D Hypochromia 0 Platelet Estimate Normal Polychromasia 1+ Poikilocytosis 1+ Anisocytosis 2+ Microcytosis 1+ Macrocytosis 1+ Target Cells 1+ Tear Drop Cells 1+ Ovalocytes 1+ [place] Cells 1+ PTT (Actin FS) Sodium 142 Potassium 3.6 Chloride 107 Carbon Dioxide 22 Anion Gap 12 BUN 85.8 H Creatinine 3.4 H Est GFR (CKD-EPI)AfAm 17.66 Est GFR (CKD-EPI)NonAf 15.24 POC Glucometer 124 Random Glucose 120 H Lactic Acid Calcium 7.8 L Phosphorus 5.3 H Magnesium 2.4 Total Bilirubin 2.1 H Direct Bilirubin 1.5 H AST 298 H ALT 106 H Alkaline Phosphatase 137 H Total Protein 5.1 L Albumin 1.6 L Urine Color Urine Appearance Urine pH Ur Specific [place] Urine Protein Urine Glucose (UA) Urine Ketones Urine Blood Urine Nitrite Urine Bilirubin Urine Urobilinogen Ur Leukocyte Esterase Urine WBC (Auto) Urine RBC (Auto) Urine Casts (Auto) U Epithel Cells (Auto) Urine Bacteria (Auto) Ur Random Creatinine Ur Random Sodium Random Vancomycin 11/11/18 17:56 WBC RBC Hgb Hct MCV MCH MCHC RDW Plt Count MPV Absolute Neuts (auto) Neutrophils % Neutrophils % (Manual) Band Neutrophils % Lymphocytes % Lymphocytes % (Manual) Monocytes % Monocytes % (Manual) Eosinophils % Eosinophils % (Manual) Basophils % Basophils % (Manual) Myelocytes % (Man) Promyelocytes % (Man) Blast Cells % (Manual) Nucleated RBC % Metamyelocytes Hypochromia Platelet Estimate Polychromasia Poikilocytosis Anisocytosis Microcytosis Macrocytosis Target Cells Tear Drop Cells Ovalocytes Lane Cells PTT (Actin FS) Sodium Potassium Chloride Carbon Dioxide Anion Gap BUN Creatinine Est GFR (CKD-EPI)AfAm Est GFR (CKD-EPI)NonAf POC Glucometer 116 Random Glucose Lactic Acid Calcium Phosphorus Magnesium Total Bilirubin Direct Bilirubin AST ALT Alkaline Phosphatase Total Protein Albumin Urine Color Urine Appearance Urine pH Ur Specific [place] Urine Protein Urine Glucose (UA) Urine Ketones Urine Blood Urine Nitrite Urine Bilirubin Urine Urobilinogen Ur Leukocyte Esterase Urine WBC (Auto) Urine RBC (Auto) Urine Casts (Auto) U Epithel Cells (Auto) Urine Bacteria (Auto) Ur Random Creatinine Ur Random Sodium Random Vancomycin Current Medications Generic Name Dose Route Start Last Admin Trade Name Freq PRN Reason Stop Dose Admin Albuterol/Ipratropium 1 amp 11/06/18 08:00 11/11/18 16:13 Duoneb - NEB 1 amp RQID [facility] Administration Amantadine HCl 100 mg 11/06/18 10:00 11/11/18 09:42 Symmetrel Oral Solution - GT 100 mg BID [facility] Administration Apixaban 2.5 mg 11/11/18 22:00 Eliquis - GT BID [facility] Carbidopa/Levodopa 2 each 11/05/18 22:45 11/11/18 13:47 Sinemet 25/250 - GT 2 each TID [facility] Administration Chlorhexidine Gluconate 1 applic 11/05/18 22:00 11/10/18 21:16 Hibiclens For Decolonization - TP 1 applic HS [facility] Administration Collagenase 1 applic 11/06/18 12:30 11/11/18 12:02 Santyl - TP 1 applic DAILY [facility] Administration Protocol Homatropine HBr 1 drop 11/06/18 10:00 11/11/18 17:51 Isopto Homatropine 5% - OD 1 drop QID [facility] Administration Hydromorphone HCl 0.5 mg 11/09/18 10:38 11/10/18 09:29 Dilaudid Vial - IVPUSH 0.5 mg Q4H PRN Administration PAIN LEVEL 4 - 6 Ceftazidime/Avibactam 1.25 gm/ 100 mls @ 50 mls/hr 11/08/18 15:15 11/11/18 17 :50 Dextrose IVPB 50 mls/hr Q8H-IV [facility] Administration Protocol Metronidazole 500 mg in 100 mls @ 100 mls/hr 11/08/18 15:15 11/11/18 17:50 Flagyl 500mg Premixed Ivpb - IVPB 100 mls/hr Q8H-IV [facility] Administration Dextrose/Sodium Chloride 1,000 mls @ 50 mls/hr 11/11/18 11:20 11/11/18 12:03 D5-Ns - IV 50 mls/hr ASDIR [facility] Administration Latanoprost 1 drop 11/06/18 22:00 11/10/18 21:18 Xalatan 0.005% Eye Drops - OU 1 drop HS [facility] Administration Metoprolol Tartrate 5 mg 11/06/18 13:04 Lopressor Injection - IVPUSH Q4H PRN [facility]ARDIA Metoprolol Tartrate 5 mg 11/10/18 15:30 11/11/18 15:32 Lopressor Injection - IVPUSH 5 mg Q6H [facility] Administration Pantoprazole Sodium 40 mg 11/06/18 10:45 11/11/18 09:42 Protonix Iv IVPUSH 40 mg DAILY [facility] Administration Tobramycin/Dexamethasone 1 drop 11/06/18 10:00 11/11/18 12:02 Tobradex Ophthalmic Suspension - OU 1 drop BID [facility] Administration Home Medications Medication Instructions Recorded Acetaminophen [Tylenol] 650 mg GT QID PRN 11/05/18 Albuterol 2.5/Ipratropium 0.5 1 neb IH QID 11/05/18 [Duoneb -] Amantadine Oral Solution 100 mg GT BID 11/05/18 [Symmetrel Oral Solution -] Amiodarone HCl [Cordarone -] 200 mg GT DAILY 11/05/18 Apixaban [Eliquis -] 5 mg GT BID 11/05/18 Ascorbic Acid 500 mg GT DAILY 11/05/18 Carbidopa/Levodopa 25/250 [Sinemet 2 each PO TID 11/05/18 25/250 -] Docusate Liquid [Colace Liquid -] 100 mg GT DAILY 11/05/18 Famotidine 20 mg GT DAILY 11/05/18 Furosemide [Lasix -] 40 mg GT DAILY 11/05/18 Homatropine HBr 5% Ophth Soln 1 drop OD QID 11/05/18 [Isopto Homatropine] Latanoprost 0.005% Eye Drops 1 drop OU HS 11/05/18 [Xalatan 0.005% Eye Drops -] Metoprolol Tartrate [Lopressor -] 50 mg GT BID 11/05/18 Multivitamin [Multiple Vitamins] 15 ml GT DAILY 11/05/18 Polyethylene Glycol 3350 [Miralax 17 gm GT DAILY 11/05/18 (For Bowel Prep) -] Tobramycin/Dexamethasone [Tobradex 1 drop OU BID 11/05/18 Eye Drops] Zinc Sulfate [Zinc-220] 220 mg GT DAILY 11/05/18 ASSESSMENT AND PLAN: 88 year old male with Parkinson's Disease, COPD, HTN, Atrial Fibrillation, CRF s /p Trach/PEG, presented with fevers/chills, abdominal pain/distension, found to have SBO and sepsis secondary to Pneumonia. 1. Acute on Chronic Respiratory Failure and Severe Sepsis secondary to Pneumonia - improving. s/p Trach, Vent dependent Sputum Cx positive for Pseudomonas, Klebsiella ESBL, Proteus ESBL Continue Ceftazidime/Avibactam, Flagyl Afebrile, Hemodynamically Stable. ID following. 2. Dilated CBD/Elevated LFTs - further management as per GI - will request RUQ US and re-evaluation by GI for possible MRCP. Afebrile, Hemodynamically Stable. 3. Atrial fibrillation with RVR - resume oral Metoprolol (transition from IV now PEG feeds resumed), Amiodarone. transition Heparin drip to Eliquis. 4. [place] sec to Sepsis versus contrast induced nephropathy. IV hydration. No obstruction on imaging. Nephrology following. 5. Elevated troponin - sec to demand due to sepsis. TnI max 0.07. No further work-up currently. Can follow with cardiology as out-patient. 6. Parkinson's Disease - Continue Sinemet/Amantadine. 7. HTN - Hypotension resolved. Resumed on Metoprolol. 8. Dysphagia s/p PEG - SBO resolved. PEG feeds resumed. NG tube removed. DVT Px - on Eliquis GI Px - PPI.
[2018-11-11] MEDS: AMIODARONE HCL 200 MG TABLET (FP) GT SCH (21:53)
[2018-11-11] MEDS: APIXABAN 2.5 MG TABLET GT SCH (21:53)
[2018-11-11] MEDS: METOPROLOL TARTRATE 50 MG TABLET (FP) GT SCH (21:54)
[2018-11-11] MEDS: CHLORHEXIDINE GLUCONATE 4% CLEANSER FOR DECOLONIZATION TP SCH (21:54)
[2018-11-11] MEDS: LATANOPROST 0.005% OPHTH SOLN 2.5ML BOTTLE OU SCH (21:57)
[2018-11-12] MEDS: CEFTAZIDIME/AVIBACTAM 1.25 GM in DEXTROSE 5%-WATER - 100 ML IVPB SCH ×3 (02:50→18:17)
[2018-11-12] MEDS: CARBIDOPA/LEVODOPA 25/250 TABLET (FP) GT SCH ×3 (05:54→21:49)
[2018-11-12 06:42] LABS: BASO % 0.1 % (0-2.0); HEMATOCRIT 27.2 % (35.4-49); HEMOGLOBIN 8.7 GM/dL (11.7-16.9); LYMPH % 13.3 % (8-40); MCH 28.8 pg (25.7-33.7); MCHC 31.9 g/dl (32.0-35.9); MEAN CELL VOLUME 90.4 fl (80-96); MEAN PLT VOLUME 8.2 fl (7.5-11.1); MONO % 7.8 % (3.8-10.2); NEUT % 75.8 % (42.8-82.8); PLATELET COUNT 124 K/MM3 (134-434); RBC 3.01 M/mm3 (4.00-5.60); WHITE BLOOD COUNT 9.1 K/mm3 (4.0-10.0)
[2018-11-12 06:46] LABS: ALBUMIN 1.4 g/dl (3.4-5.0); BILIRUBIN,TOTAL 1.8 mg/dL (0.2-1); BLOOD UREA NITROGEN 90.7 mg/dL (7-18); CALCIUM 7.7 mg/dL (8.5-10.1); CREATININE 3.9 mg/dL (0.55-1.3); MAGNESIUM 2.3 mg/dL (1.8-2.4); PHOSPHOROUS 4.9 mg/dL (2.5-4.9); POTASSIUM 3.5 mmol/L (3.5-5.1); TOT PROT 4.9 g/dl (6.4-8.2)
[2018-11-12] MEDS: ALBUTEROL SO4 2.5/IPRATROPIUM 0.5 INH SOL 3 ML VIAL.NEB. NEB SCH ×4 (08:13→20:40)
--- NOTE | 2018-11-12 08:37 | PN ---
Progress Note (short form) - Note Progress Note: intubated opens eyes seems more alert Vital Signs Period Temp Pulse Resp BP Sys/Cope Pulse Ox Last 24 Hr 97.4 F-98.4 F 101-120 24-36 88-138/56-98 98-99 trach- vent cor-rrr lungs decreased bs at bases abd soft,+gt ext +edema galarza CBC, BMP 11/12/18 05:45 11/12/18 05:45 Microbiology 11/08/18 17:00 Blood - Peripheral Venous Blood Culture - Preliminary NO GROWTH OBTAINED AFTER 72 HOURS, INCUBATION TO CONTINUE FOR 2 DAYS. 11/08/18 16:35 Blood - Peripheral Venous Blood Culture - Preliminary NO GROWTH OBTAINED AFTER 72 HOURS, INCUBATION TO CONTINUE FOR 2 DAYS. 11/05/18 15:00 Blood - Peripheral Venous Blood Culture - Final NO GROWTH AFTER 5 DAYS INCUBATION 11/05/18 14:30 Blood - Peripheral Venous Blood Culture - Final NO GROWTH AFTER 5 DAYS INCUBATION 11/06/18 13:00 Sputum - Endotrachea Suction/Ventilator Gram Stain - Final 11/06/18 13:00 Sputum - Endotrachea Suction/Ventilator Sputum Culture - Final Klebsiella Pneumoniae - Esbl Pseudomonas Aeruginosa Proteus Mirabilus - Esbl Produ 11/06/18 18:00 Urine For Antigen Detection Legionella Antigen - Final 11/06/18 18:00 Urine For Antigen Detection Streptococcus pneumoniae Antigen (M - Final 11/05/18 15:00 Urine - Urine - Catheterized Urine Culture - Final Yeast Like Organism Current Medications Albuterol/Ipratropium (Duoneb -) 1 amp NEB RQID [facility] Last Admin: 11/12/18 08:13 Dose: 1 amp Amantadine HCl (Symmetrel Oral Solution -) 100 mg GT BID [facility] Last Admin: 11/11/18 21:55 Dose: 100 mg Amiodarone HCl (Cordarone -) 200 mg GT DAILY [facility] Last Admin: 11/11/18 21:53 Dose: Not Given Apixaban (Eliquis -) 2.5 mg GT BID [facility] Last Admin: 11/11/18 21:53 Dose: 2.5 mg Carbidopa/Levodopa (Sinemet 25/250 -) 2 each GT TID [facility] Last Admin: 11/12/18 05:54 Dose: 2 each Chlorhexidine Gluconate (Hibiclens For Decolonization -) 1 applic TP [facility] Last Admin: 11/11/18 21:54 Dose: 1 applic Collagenase (Santyl -) 1 applic TP DAILY [facility]; Protocol Last Admin: 11/11/18 12:02 Dose: 1 applic Homatropine HBr (Isopto Homatropine 5% -) 1 drop OD QID [facility] Last Admin: 11/11/18 21:56 Dose: 1 drop Hydromorphone HCl (Dilaudid Vial -) 0.5 mg IVPUSH Q4H PRN PRN Reason: PAIN LEVEL 4 - 6 Last Admin: 11/10/18 09:29 Dose: 0.5 mg Ceftazidime/Avibactam 1.25 gm/ (Dextrose) 100 mls @ 50 mls/hr IVPB Q8H-IV [facility]; Protocol Last Admin: 11/12/18 02:50 Dose: 50 mls/hr Metronidazole (Flagyl 500mg Premixed Ivpb -) 500 mg in 100 mls @ 100 mls/hr IVPB Q8H-IV [facility] Last Admin: 11/12/18 02:00 Dose: 100 mls/hr Dextrose/Sodium Chloride (D5-Ns -) 1,000 mls @ 50 mls/hr IV ASDIR [facility] Last Admin: 11/11/18 12:03 Dose: 50 mls/hr Latanoprost (Xalatan 0.005% Eye Drops -) 1 drop OU HS [facility] Last Admin: 11/11/18 21:57 Dose: 1 drop Metoprolol Tartrate (Lopressor Injection -) 5 mg IVPUSH Q4H PRN PRN Reason: TACHYCARDIA Metoprolol Tartrate (Lopressor -) 50 mg GT BID [facility] Last Admin: 11/11/18 21:54 Dose: 50 mg Pantoprazole Sodium (Protonix Iv) 40 mg IVPUSH DAILY [facility] Last Admin: 11/11/18 09:42 Dose: 40 mg Tobramycin/Dexamethasone (Tobradex Ophthalmic Suspension -) 1 drop OU BID [facility] Last Admin: 11/11/18 21:56 Dose: [address] scan noted a/p sepsis- probable pneumonia continue ceftazidime/avibactam and flagyl-day #4 improving wbc normal today 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
[2018-11-12 09:22] LABS: ANISOCYTOSIS 2+; MACROCYTOSIS 0; PLATELET ESTIMATE DECREASED
[2018-11-12] MEDS: PANTOPRAZOLE SODIUM 40 MG VIAL IVPUSH SCH (09:31)
[2018-11-12] MEDS: APIXABAN 2.5 MG TABLET GT SCH ×2 (09:31→21:48)
[2018-11-12] MEDS: METOPROLOL TARTRATE 50 MG TABLET (FP) GT SCH ×2 (09:31→21:49)
[2018-11-12] MEDS: AMIODARONE HCL 200 MG TABLET (FP) GT SCH (09:32)
[2018-11-12] MEDS: COLLAGENASE CLOSTRIDIUM HIST. 30 GRAMS TUBE TP SCH (09:33)
[2018-11-12] MEDS: [UNRECOGNIZED DRUG - OTHER] OD SCH ×4 (09:34→22:02)
[2018-11-12] MEDS: TOBRA 0.3%/DEXAMETH 0.1% OPHTHALMIC SUSP 2.5 ML BTL OU SCH ×2 (09:34→22:02)
[2018-11-12] MEDS: AMANTADINE HCL 100MG/10 ML UNIT DOSE CUPS GT SCH ×2 (09:50→22:03)
[2018-11-12] MEDS ORDERED: METOPROLOL TARTRATE 25 MG TABLET (FP) GT ONE (10:39)
--- NOTE | 2018-11-12 10:51 | PN ---
Teaching Attending Note Name of Resident: Marian Marquez ATTENDING PHYSICIAN STATEMENT I saw and evaluated the patient. I reviewed the resident's note and discussed the case with the resident. I agree with the resident's findings and plan as documented. SUBJECTIVE: Pt seen and examined in the ICU. Vented, awake, tachypneic. Remains oliguric. OBJECTIVE: Vital Signs Period Temp Pulse Resp BP Sys/Cope Pulse Ox Last 24 Hr 97.4 F-98.4 F 105-120 22-36 92-138/56-98 98-99 Intake & Output 11/09/18 11/10/18 11/11/18 11/12/18 23:59 23:59 23:59 23:59 Intake Total 4756 3641 1581 1900 Output Total 1000 350 300 Balance 3756 3291 1281 1900 Weight 85.3 kg 86.001 kg 88.3 kg 88.949 kg Gen: vented, tachypneic Heart: irregular Lung: scattered rhonchi Abd: softly distended Ext: + edema CBC, BMP 11/12/18 05:45 11/12/18 05:45 Active Medications Albuterol/Ipratropium (Duoneb -) 1 amp NEB RQID [facility] Last Admin: 11/12/18 08:13 Dose: 1 amp Amantadine HCl (Symmetrel Oral Solution -) 100 mg GT BID [facility] Last Admin: 11/12/18 09:50 Dose: 100 mg Amiodarone HCl (Cordarone -) 200 mg GT DAILY [facility] Last Admin: 11/12/18 09:32 Dose: 200 mg Apixaban (Eliquis -) 2.5 mg GT BID [facility] Last Admin: 11/12/18 09:31 Dose: 2.5 mg Carbidopa/Levodopa (Sinemet 25/250 -) 2 each GT TID [facility] Last Admin: 11/12/18 05:54 Dose: 2 each Chlorhexidine Gluconate (Hibiclens For Decolonization -) 1 applic TP HS [facility] Last Admin: 11/11/18 21:54 Dose: 1 applic Collagenase (Santyl -) 1 applic TP DAILY [facility]; Protocol Last Admin: 11/12/18 09:33 Dose: 1 applic Homatropine HBr (Isopto Homatropine 5% -) 1 drop OD QID [facility] Last Admin: 11/12/18 09:34 Dose: 1 drop Ceftazidime/Avibactam 1.25 gm/ (Dextrose) 100 mls @ 50 mls/hr IVPB Q8H-IV [facility]; Protocol Last Admin: 11/12/18 02:50 Dose: 50 mls/hr Metronidazole (Flagyl 500mg Premixed Ivpb -) 500 mg in 100 mls @ 100 mls/hr IVPB Q8H-IV [facility] Last Admin: 11/12/18 09:32 Dose: 100 mls/hr Dextrose/Sodium Chloride (D5-Ns -) 1,000 mls @ 50 mls/hr IV ASDIR [facility] Last Admin: 11/11/18 12:03 Dose: 50 mls/hr Latanoprost (Xalatan 0.005% Eye Drops -) 1 drop OU HS [facility] Last Admin: 11/11/18 21:57 Dose: 1 drop Metoprolol Tartrate (Lopressor Injection -) 5 mg IVPUSH Q4H PRN PRN Reason: TACHYCARDIA Metoprolol Tartrate (Lopressor -) 75 mg GT BID [facility] Pantoprazole Sodium (Protonix Iv) 40 mg IVPUSH DAILY [facility] Last Admin: 11/12/18 09:31 Dose: 40 mg Tobramycin/Dexamethasone (Tobradex Ophthalmic Suspension -) 1 drop OU BID [facility] Last Admin: 11/12/18 09:34 Dose: 1 drop ASSESSMENT AND PLAN: Chronic Respiratory Failure Pneumonia Severe Sepsis Acute Kidney Injury Lactic Acidosis +Troponins likely Demand Ischemia Atrial Fibrillation COPD HTN Parkinsons Disease - antibiotics per ID - continue IVF - monitor urine output, creatinine - rate control - continue anticoagulation - enteral feeds - DVT/GI prophylaxis - continue discussions regarding goals of care - continue ICU monitoring critical care time spent in reviewing chart, evaluating patient and formulating plan 35 min
[2018-11-12] MEDS ORDERED: PT OWN MED DRAWER 7, Y5N ONE ×3 (11:26→14:54)
--- NOTE | 2018-11-12 11:43 | PN ---
Physical Exam: SUBJECTIVE: Patient seen and examined. Pt is continuing to be more responsive the last 2 days. OBJECTIVE: Vital Signs Period Temp Pulse Resp BP Sys/Cope Pulse Ox Last 24 Hr 97.4 F-98.4 F 105-120 22-36 92-138/56-98 97-99 GENERAL: The patient is awake and alert, on vent HEAD: Normal with no signs of trauma. EYES: pupils equally reactive to light, follows verbal stimuli, sclera anicteric , conjunctiva clear. No ptosis. ENT: Ears normal, nares patent, moist mucous membranes NECK: Trach in place, limited ROM LUNGS: Breath sounds equal, rhonchi bilaterally, abdominal breathing HEART: Tachycardic and irregular rhythm, S1, S2 without murmur, rub or gallop. ABDOMEN: Soft, mild distention, hypoactive bowel sounds, gastric tube in place EXTREMITIES: +2 pitting edema in hands, +1 pitting edema of feet, warm to touch NEUROLOGICAL: can move fingers and toes, follows voices with eyes and head PSYCH: unable to assess SKIN: Warm, dry, significant ecchymosis noted on both hands Laboratory Results - last 24 hr 11/11/18 11/11/18 11/11/18 11:46 17:56 21:45 WBC RBC Hgb Hct MCV MCH MCHC RDW Plt Count MPV Absolute Neuts (auto) Neutrophils % Neutrophils % (Manual) Band Neutrophils % Lymphocytes % Lymphocytes % (Manual) Monocytes % Monocytes % (Manual) Eosinophils % Eosinophils % (Manual) Basophils % Basophils % (Manual) Myelocytes % (Man) Promyelocytes % (Man) Blast Cells % (Manual) Nucleated RBC % Metamyelocytes Hypochromia Platelet Estimate Polychromasia Poikilocytosis Anisocytosis Microcytosis Macrocytosis Acanthocytes (Spur) Schistocytes PTT (Actin FS) Sodium Potassium Chloride Carbon Dioxide Anion Gap BUN Creatinine Est GFR (CKD-EPI)AfAm Est GFR (CKD-EPI)NonAf POC Glucometer 124 116 144 Random Glucose Calcium Phosphorus Magnesium Total Bilirubin AST ALT Alkaline Phosphatase Total Protein Albumin 11/12/18 11/12/18 11/12/18 05:45 05:45 05:45 WBC 9.1 RBC 3.01 L Hgb 8.7 L Hct 27.2 L MCV 90.4 MCH 28.8 MCHC 31.9 L RDW 22.0 H Plt Count 124 L D MPV 8.2 Absolute Neuts (auto) 6.9 Neutrophils % 75.8 Neutrophils % (Manual) 76.0 Band Neutrophils % 0.0 Lymphocytes % 13.3 Lymphocytes % (Manual) 11.0 Monocytes % 7.8 Monocytes % (Manual) 9 D Eosinophils % 3.0 D Eosinophils % (Manual) 4.0 D Basophils % 0.1 Basophils % (Manual) 0.0 Myelocytes % (Man) 0 Promyelocytes % (Man) 0 Blast Cells % (Manual) 0 Nucleated RBC % 1 H Metamyelocytes 0 D Hypochromia 0 Platelet Estimate Decreased Polychromasia 0 Poikilocytosis 2+ Anisocytosis 2+ Microcytosis 1+ Macrocytosis 0 Acanthocytes (Spur) 1+ Schistocytes 1+ PTT (Actin FS) 55.5 H Sodium 142 Potassium 3.5 Chloride 108 H Carbon Dioxide 20 L Anion Gap 14 BUN 90.7 H Creatinine 3.9 H Est GFR (CKD-EPI)AfAm 14.96 Est GFR (CKD-EPI)NonAf 12.91 POC Glucometer Random Glucose 114 H Calcium 7.7 L Phosphorus 4.9 Magnesium 2.3 Total Bilirubin 1.8 H AST 88 H ALT 58 Alkaline Phosphatase 145 H Total Protein 4.9 L Albumin 1.4 L Active Medications Generic Name Dose Route Start Last Admin Trade Name Negritoq PRN Reason Stop Dose Admin Albuterol/Ipratropium 1 amp 11/06/18 08:00 11/12/18 08:13 Duoneb - NEB 1 amp RQID [facility] Administration Amantadine HCl 100 mg 11/06/18 10:00 11/12/18 09:50 Symmetrel Oral Solution - GT 100 mg BID [facility] Administration Amiodarone HCl 200 mg 11/11/18 18:30 11/12/18 09:32 Cordarone - GT 200 mg DAILY [facility] Administration Apixaban 2.5 mg 11/11/18 22:00 11/12/18 09:31 Eliquis - GT 2.5 mg BID [facility] Administration Carbidopa/Levodopa 2 each 11/05/18 22:45 11/12/18 05:54 Sinemet 25/250 - GT 2 each TID [facility] Administration Chlorhexidine Gluconate 1 applic 11/05/18 22:00 11/11/18 21:54 Hibiclens For Decolonization - TP 1 applic HS [facility] Administration Collagenase 1 applic 11/06/18 12:30 11/12/18 09:33 Santyl - TP 1 applic DAILY [facility] Administration Protocol Homatropine HBr 1 drop 11/06/18 10:00 11/12/18 09:34 Isopto Homatropine 5% - OD 1 drop QID [facility] Administration Ceftazidime/Avibactam 1.25 gm/ 100 mls @ 50 mls/hr 11/08/18 15:15 11/12/18 02 :50 Dextrose IVPB 50 mls/hr Q8H-IV [facility] Administration Protocol Metronidazole 500 mg in 100 mls @ 100 mls/hr 11/08/18 15:15 11/12/18 09:32 Flagyl 500mg Premixed Ivpb - IVPB 100 mls/hr Q8H-IV [facility] Administration Dextrose/Sodium Chloride 1,000 mls @ 50 mls/hr 11/11/18 11:20 11/11/18 12:03 D5-Ns - IV 50 mls/hr ASDIR [facility] Administration Latanoprost 1 drop 11/06/18 22:00 11/11/18 21:57 Xalatan 0.005% Eye Drops - OU 1 drop HS [facility] Administration Metoprolol Tartrate 5 mg 11/06/18 13:04 Lopressor Injection - IVPUSH Q4H PRN TACHYCARDIA Metoprolol Tartrate 75 mg 11/12/18 22:00 Lopressor - GT BID [facility] Pantoprazole Sodium 40 mg 11/06/18 10:45 11/12/18 09:31 Protonix Iv IVPUSH 40 mg DAILY [facility] Administration Tobramycin/Dexamethasone 1 drop 11/06/18 10:00 11/12/18 09:34 Tobradex Ophthalmic Suspension - OU 1 drop BID [facility] Administration ASSESSMENT/PLAN: Mr. Smalls is an 88yo male with Parkinson's, COPD, CHF, HTN, a-fib on Eliquis, respiratory failure with trach and PEG, hx of pros/lawrence cancer who presents for abdominal distention and fevers. He was found to be septic 2/2 pneumonia, as well as SBO, and CBD dilation. UA on 11/10/18 resulted in UTI diagnosis. #sepsis 2/2 PNA -pulmonary exam slightly improved -leukocytosis improving 18.4-->16.5-->11.2--->9.1 -blood cultures pending, no growth to date -CXR- congestion and infiltration continuing to slightly improve, will d/c serial CXRs -CT abd/pelvis 11/05/18 showed mod to large pleural effusion on right, moderate on left -continue Ceftazidime/Avibactam and Flagyl -ID following -CBC #complicated UTI -galarza in place -continue abx for coverage #CHF -echo EF 65-70%, no LVH, mild RA dilation, moderate TR, moderate AR, no pericardial effusion -EKG 11/08/18: irregular rhythm, HR 98, QTc 589 -monitor QTc and medications which could increase it -Mg 2.3 -d/c Lasix while on D5W -CMP #SBO, resolved -restarted tube feedings #constipation -miralax #hypoglycemia BGs 110s-150s since started D5W -D5NS 100ml/hr -BGM -SSI #elevated liver enzymes improving -GI following -auto-immune panel ordered #a-fib with tachycardia HR avg 100s-110s -metoprolol increased -Eliquis -PTT monitoring #FRANCE Cr 3.9 -Nephro following- FRANCE likely multifactorial -urine eosinophils pending #HTN well-controlled, currently on metoprolol -frequent VS checks #COPD -duo-neb PRN #Parkinson's -continue home meds FEN D5NS 50mL/hr monitor lytes tube feedings DVT Ppe Eliquis GI Ppe Protonix DNR Visit type - Emergency Visit Emergency Visit: Yes ED Registration Date: 11/05/18 Care time: The patient presented to the Emergency Department on the above date and was hospitalized for further evaluation of their emergent condition. - New Patient This patient is new to me today: No - Critical Care Critical Care patient: No - Discharge Referral Referred to [facility] Med P.C.: No ATTENDING PHYSICIAN STATEMENT I saw and evaluated the patient. I reviewed the resident's note and discussed the case with the resident. I agree with the resident's findings and plan as documented. SUBJECTIVE: OBJECTIVE: ASSESSMENT AND PLAN:
--- NOTE | 2018-11-12 12:48 | PN ---
Progress Note, Physician History of Present Illness: Pt seen and examined at bedside. He remains in the ICU. He appears comfortable. - Current Medication List Current Medications: Active Medications Albuterol/Ipratropium (Duoneb -) 1 amp NEB RQID [facility] Last Admin: 11/12/18 08:13 Dose: 1 amp Amantadine HCl (Symmetrel Oral Solution -) 100 mg GT BID [facility] Last Admin: 11/12/18 09:50 Dose: 100 mg Amiodarone HCl (Cordarone -) 200 mg GT DAILY [facility] Last Admin: 11/12/18 09:32 Dose: 200 mg Apixaban (Eliquis -) 2.5 mg GT BID [facility] Last Admin: 11/12/18 09:31 Dose: 2.5 mg Carbidopa/Levodopa (Sinemet 25/250 -) 2 each GT TID [facility] Last Admin: 11/12/18 05:54 Dose: 2 each Chlorhexidine Gluconate (Hibiclens For Decolonization -) 1 applic TP HS [facility] Last Admin: 11/11/18 21:54 Dose: 1 applic Collagenase (Santyl -) 1 applic TP DAILY [facility]; Protocol Last Admin: 11/12/18 09:33 Dose: 1 applic Homatropine HBr (Isopto Homatropine 5% -) 1 drop OD QID [facility] Last Admin: 11/12/18 09:34 Dose: 1 drop Ceftazidime/Avibactam 1.25 gm/ (Dextrose) 100 mls @ 50 mls/hr IVPB Q8H-IV [facility]; Protocol Last Admin: 11/12/18 12:13 Dose: 50 mls/hr Metronidazole (Flagyl 500mg Premixed Ivpb -) 500 mg in 100 mls @ 100 mls/hr IVPB Q8H-IV [facility] Last Admin: 11/12/18 09:32 Dose: 100 mls/hr Dextrose/Sodium Chloride (D5-Ns -) 1,000 mls @ 50 mls/hr IV ASDIR [facility] Last Admin: 11/11/18 12:03 Dose: 50 mls/hr Latanoprost (Xalatan 0.005% Eye Drops -) 1 drop OU HS [facility] Last Admin: 11/11/18 21:57 Dose: 1 drop Metoprolol Tartrate (Lopressor Injection -) 5 mg IVPUSH Q4H PRN PRN Reason: TACHYCARDIA Metoprolol Tartrate (Lopressor -) 75 mg GT BID [facility] Pantoprazole Sodium (Protonix Iv) 40 mg IVPUSH DAILY [facility] Last Admin: 11/12/18 09:31 Dose: 40 mg Tobramycin/Dexamethasone (Tobradex Ophthalmic Suspension -) 1 drop OU BID [facility] Last Admin: 11/12/18 09:34 Dose: 1 drop - Objective Vital Signs: Vital Signs Temperature 98.2 F 11/12/18 06:00 Pulse Rate 120 H 11/12/18 08:18 Respiratory Rate 33 H 11/12/18 08:18 Blood Pressure 121/61 11/12/18 08:00 O2 Sat by Pulse Oximetry (%) 97 11/12/18 09:00 Constitutional: Yes: Calm Eyes: Yes: Conjunctiva Clear HENT: Yes: Other (trache) Neck: Yes: Supple Cardiovascular: Yes: S1, S2 Respiratory: Yes: Mechanically Ventilated Gastrointestinal: Yes: Soft Genitourinary: Yes: Salguero Present Musculoskeletal: Yes: Muscle Weakness Edema: LLE: Trace, RLE: Trace Neurological: Yes: Oriented Psychiatric: Yes: Oriented Labs: CBC, BMP 11/12/18 05:45 11/12/18 05:45 INR, PTT INR 2.22 (0.83-1.09) H 11/06/18 05:30 - ....Imaging Chest X-ray: Report Reviewed Problem List - Problems (1) FRANCE (acute kidney injury) Code(s): N17.9 - ACUTE KIDNEY FAILURE, UNSPECIFIED (2) Atrial fibrillation with RVR Code(s): I48.91 - UNSPECIFIED ATRIAL FIBRILLATION (3) Ileus Code(s): K56.7 - ILEUS, UNSPECIFIED (4) Sepsis Code(s): A41.9 - SEPSIS, UNSPECIFIED ORGANISM Qualifiers: Sepsis type: sepsis due to unspecified organism Sepsis acute organ dysfunction status: with acute organ dysfunction Severe sepsis acute organ dysfunction type: acute renal failure Acute renal failure type: unspecified Severe sepsis shock status: without septic shock Qualified Code(s): A41.9 - Sepsis, unspecified organism; R65.20 - Severe sepsis without septic shock; N17.9 - Acute kidney failure, unspecified Assessment/Plan Current Medications Generic Name Dose Route Start Last Admin Trade Name Freq PRN Reason Stop Dose Admin Albuterol/Ipratropium 1 amp 11/06/18 08:00 11/12/18 08:13 Duoneb - NEB 1 amp RQID [facility] Administration Amantadine HCl 100 mg 11/06/18 10:00 11/12/18 09:50 Symmetrel Oral Solution - GT 100 mg BID [facility] Administration Amiodarone HCl 200 mg 11/11/18 18:30 11/12/18 09:32 Cordarone - GT 200 mg DAILY [facility] Administration Apixaban 2.5 mg 11/11/18 22:00 11/12/18 09:31 Eliquis - GT 2.5 mg BID [facility] Administration Carbidopa/Levodopa 2 each 11/05/18 22:45 11/12/18 05:54 Sinemet 25/250 - GT 2 each TID [facility] Administration Chlorhexidine Gluconate 1 applic 11/05/18 22:00 11/11/18 21:54 Hibiclens For Decolonization - TP 1 applic HS [facility] Administration Collagenase 1 applic 11/06/18 12:30 11/12/18 09:33 Santyl - TP 1 applic DAILY [facility] Administration Protocol Homatropine HBr 1 drop 11/06/18 10:00 11/12/18 09:34 Isopto Homatropine 5% - OD 1 drop QID [facility] Administration Ceftazidime/Avibactam 1.25 gm/ 100 mls @ 50 mls/hr 11/08/18 15:15 11/12/18 12 :13 Dextrose IVPB 50 mls/hr Q8H-IV [facility] Administration Protocol Metronidazole 500 mg in 100 mls @ 100 mls/hr 11/08/18 15:15 11/12/18 09:32 Flagyl 500mg Premixed Ivpb - IVPB 100 mls/hr Q8H-IV [facility] Administration Dextrose/Sodium Chloride 1,000 mls @ 50 mls/hr 11/11/18 11:20 11/11/18 12:03 D5-Ns - IV 50 mls/hr ASDIR [facility] Administration Latanoprost 1 drop 11/06/18 22:00 11/11/18 21:57 Xalatan 0.005% Eye Drops - OU 1 drop HS [facility] Administration Metoprolol Tartrate 5 mg 11/06/18 13:04 Lopressor Injection - IVPUSH Q4H PRN [facility] Metoprolol Tartrate 75 mg 11/12/18 22:00 Lopressor - GT BID [facility] Pantoprazole Sodium 40 mg 11/06/18 10:45 11/12/18 09:31 Protonix Iv IVPUSH 40 mg DAILY [facility] Administration Tobramycin/Dexamethasone 1 drop 11/06/18 10:00 11/12/18 09:34 Tobradex Ophthalmic Suspension - OU 1 drop BID [facility] Administration Laboratory Tests 11/05/18 11/10/18 11/11/18 15:00 16:45 11:20 U Pathogenic Cast Auto Granular cast Urine Eosinophils Pending JENNIFER M-Aleksandr Pending FACUNDO Screen c-ANCA Proteinase 3 (PR3) p-ANCA Atypical p-ANCA Myeloperoxidase Ab Double Strand DNA Ab Glomerular Base Memb Ab Hep Bs Antibody Hep B Core Total Ab Hep B Core IgM Ab Hepatitis Be Antibody Hepatitis Be Antigen 11/11/18 11:20 U Pathogenic Cast Auto Urine Eosinophils JENNIFER M-Aleksandr FACUNDO Screen Pending c-ANCA Pending Proteinase 3 (PR3) Pending p-ANCA Pending Atypical p-ANCA Pending Myeloperoxidase Ab Pending Double Strand DNA Ab <1 Glomerular Base Memb Ab Pending Hep Bs Antibody Pending Hep B Core Total Ab Pending Hep B Core IgM Ab Pending Hepatitis Be Antibody Pending Hepatitis Be Antigen Pending Impression: 1. FR[place] 2. sepsis 3. PNA 4. SBO 5. Parkinson's 6. a-fib 7. chronic resp failure 8. severe sepsis 9. lactic acidosis 10. copd 11. hx of htn Plan - follow renal function - monitor urine output - urine eos pending - cont supportive care - likely multifactorial FRNACE, pt has multiple reasons to develop renal failure - cont vent support - cont ICU management - no indication for S[employer]IOR [employer]NAG[employer]SULTANT at this point
--- NOTE | 2018-11-12 13:30 | PN ---
Physical Exam: SUBJECTIVE: Patient seen and examined at bedside. pt is nonverbal. pt is able to follow eyes to voice. OBJECTIVE: Vital Signs Period Temp Pulse Resp BP Sys/Cope Pulse Ox Last 24 Hr 97.4 F-98.4 F 105-120 22-33 92-138/56-98 97-99 GENERAL: The patient is awake, alert, and fully oriented, in no acute distress. LUNGS: decreased breath sounds.trached to vent HEART: Regular rate and rhythm, S1, S2 without murmur, rub or gallop. ABDOMEN: Soft, nontender, nondistended, normoactive bowel sounds, no guarding EXTREMITIES: 2+ pulses, warm, well-perfused,b/L Pitting edema UE SKIN: Warm, dry, normal turgor, no rashes or lesions noted Laboratory Results - last 24 hr 11/12/18 11/12/18 11/12/18 05:45 05:45 05:45 WBC 9.1 RBC 3.01 L Hgb 8.7 L Hct 27.2 L MCV 90.4 MCH 28.8 MCHC 31.9 L RDW 22.0 H Plt Count 124 L D MPV 8.2 Absolute Neuts (auto) 6.9 Neutrophils % 75.8 Neutrophils % (Manual) 76.0 Band Neutrophils % 0.0 Lymphocytes % 13.3 Lymphocytes % (Manual) 11.0 Monocytes % 7.8 Monocytes % (Manual) 9 D Eosinophils % 3.0 D Eosinophils % (Manual) 4.0 D Basophils % 0.1 Basophils % (Manual) 0.0 Myelocytes % (Man) 0 Promyelocytes % (Man) 0 Blast Cells % (Manual) 0 Nucleated RBC % 1 H Metamyelocytes 0 D Hypochromia 0 Platelet Estimate Decreased Polychromasia 0 Poikilocytosis 2+ Anisocytosis 2+ Microcytosis 1+ Macrocytosis 0 Acanthocytes (Spur) 1+ Schistocytes 1+ PTT (Actin FS) 55.5 H Sodium 142 Potassium 3.5 Chloride 108 H Carbon Dioxide 20 L Anion Gap 14 BUN 90.7 H Creatinine 3.9 H Est GFR (CKD-EPI)AfAm 14.96 Est GFR (CKD-EPI)NonAf 12.91 POC Glucometer Random Glucose 114 H Calcium 7.7 L Phosphorus 4.9 Magnesium 2.3 Total Bilirubin 1.8 H AST 88 H ALT 58 Alkaline Phosphatase 145 H Total Protein 4.9 L Albumin 1.4 L Double Strand DNA Ab Current Medications Albuterol/Ipratropium (Duoneb -) 1 amp NEB RQID [facility] Last Admin: 11/12/18 08:13 Dose: 1 amp Amantadine HCl (Symmetrel Oral Solution -) 100 mg GT BID [facility] Last Admin: 11/12/18 09:50 Dose: 100 mg Amiodarone HCl (Cordarone -) 200 mg GT DAILY [facility] Last Admin: 11/12/18 09:32 Dose: 200 mg Apixaban (Eliquis -) 2.5 mg GT BID [facility] Last Admin: 11/12/18 09:31 Dose: 2.5 mg Carbidopa/Levodopa (Sinemet 25/250 -) 2 each GT TID [facility] Last Admin: 11/12/18 05:54 Dose: 2 each Chlorhexidine Gluconate (Hibiclens For Decolonization -) 1 applic TP HS [facility] Last Admin: 11/11/18 21:54 Dose: 1 applic Collagenase (Santyl -) 1 applic TP DAILY [facility]; Protocol Last Admin: 11/12/18 09:33 Dose: 1 applic Homatropine HBr (Isopto Homatropine 5% -) 1 drop OD QID [facility] Last Admin: 11/12/18 09:34 Dose: 1 drop Ceftazidime/Avibactam 1.25 gm/ (Dextrose) 100 mls @ 50 mls/hr IVPB Q8H-IV [facility]; Protocol Last Admin: 11/12/18 12:13 Dose: 50 mls/hr Metronidazole (Flagyl 500mg Premixed Ivpb -) 500 mg in 100 mls @ 100 mls/hr IVPB Q8H-IV [facility] Last Admin: 11/12/18 09:32 Dose: 100 mls/hr Dextrose/Sodium Chloride (D5-Ns -) 1,000 mls @ 50 mls/hr IV ASDIR [facility] Last Admin: 11/11/18 12:03 Dose: 50 mls/hr Latanoprost (Xalatan 0.005% Eye Drops -) 1 drop OU HS [facility] Last Admin: 11/11/18 21:57 Dose: 1 drop Metoprolol Tartrate (Lopressor Injection -) 5 mg IVPUSH Q4H PRN PRN Reason: TACHYCARDIA Metoprolol Tartrate (Lopressor -) 75 mg GT BID [facility] Pantoprazole Sodium (Protonix Iv) 40 mg IVPUSH DAILY [facility] Last Admin: 11/12/18 09:31 Dose: 40 mg Tobramycin/Dexamethasone (Tobradex Ophthalmic Suspension -) 1 drop OU BID [facility] Last Admin: 11/12/18 09:34 Dose: 1 drop Pelvis/ Renal U/S IMPRESSION: Bilateral renal sinus lipomatosis and cortical thinning. Exophytic right renal simple cyst measuring 4 cm appear No gross renal hydronephrosis or hydroureter, bilaterally a Partially distended urinary bladder with a Salguero catheter present. There is apparent thickening of its wall that may be at least partially due to under distention. CXR: 11/11 A single view of the chest has been submitted. Since 11/10/2018 at 0621 hours the tracheostomy tube and NG tube are again noted. The tip of the NG tube is difficult to see. The bilateral pulmonary and pleural changes have diminished slightly in the upper lobes. Correlation recommended. CT abdomen/ Pelvis: IMPRESSION: A gastrostomy tube and nasogastric tube are in satisfactory position. Oral contrast is present within an essentially collapsed stomach without extravasation of contrast. Hyperdense slightly over distended gallbladder compatible with vicarious excretion from prior intravenous injection. Large right renal exophytic cyst again seen without interval change. There is no evidence of small bowel obstruction. The small bowel loops are no longer dilated. Diverticulosis coli mainly in the proximal and mid sigmoid colon without evidence of acute diverticulitis. Moderate amount of fecal residue in the rectosigmoid junction suggestive of constipation. Cannot rule out impaction. Correlate clinically. Right hip prosthesis in satisfactory position. Marked degenerative changes involving the left hip joint. Moderate to marked degenerative disc disease at L3-L4 level. Fusion of the right sacroiliac joints with surrounding heterogeneous low-attenuation bone density that may be degenerative. Cannot rule out Paget's disease. Correlate clinically. ASSESSMENT/PLAN: 88 yo M w/ PMH Parkinson's, COPD, HTN, CHF, Afib, respiratory failure ( trached to vent). Pt has PEG. Pt presented to the ED for abdominal distention. Pt is admitted for Severe Sepsis 2/2 Pneumonia and possible SBO. ARDS Chronic Respiratory Failure SBO Afib HTN CHF Neuro: -Awake, alert. -pt has been non verbal since he had trach, baseline confirmed with son -hold sedatives -c/w sinemet 25/250 -pain mgmt w/ dilauded 0.5 mg Cardiology -Afib -HTN -HFpEF -c/w beta rebecca -hold antihypertensives as pt is hypotensive today -D50-NS bolus -d/c lasix -[facility] -Echo EF 65-70 %, LV fxn normal, mild , moderate AR , TR Respiratory -Acute on Chronic respiratory failure -ARDS -Pneumonia -Trached to vent -Vent settings changed : A/C mode Rate 12, TV 450, Peak flow 60, PEEP 5, %O2 40 -CXRay worsening R sided infiltrate -sputum culture growing Klebsiella pneumoniae, Pseudomonas Aerginosa, Proteus. Sensitivities reviewed RENAL - [place], worsening Cr 3.9 - monitor urine output. Urine output around 300 yesterday. will continue to monitor today as U output seems to be improving -bladder u/s reviewed, findings stated above. -FENa =11.4% -Urine studies GASTROINTESTINAL -SBO, resolved - mild nonspecific CBD dilation -Abdominal XR reviewed, awaiting CT abdomen -s/p NGT decompression -Gi recommendations appreciated -possible MRCP once optimized -transaminitis improved INFECTIOUS DISEASE -Sepsis likely 2/2 pneumonia -lactate downtrending 10.8-->3.8 -leukocytosis 14.7-->18.4--> 11.2--> 9.1 -Dr. Vogt consulted, recs appreciated -vanc level, DC vancomycin -flagyl as per ID recs day 5 -c/w Ceftazidime/Avibactam day 5 HEMATOLOGY - no acute issues F/E/N -D50-NS @ 50mls -continue to monitor electrolytes and replete as necessary -continue w/ feeds PROPHYLAXIS - SCDs CODE - DNR -Case discussed with family. family wants all interventions, but keep DNR. consent signed for central line if needed. -Paliative Care DISPO: continue to monitor until medically stabilized. Visit type - Emergency Visit Emergency Visit: No - New Patient This patient is new to me today: No - Critical Care Critical Care patient: Yes Total Critical Care Time (in minutes): 36 Critical Care Statement: The care of this patient involved high complexity decision making to prevent further life threatening deterioration of the patient 's condition and/or to evaluate & treat vital organ system(s) failure or risk of failure. ATTENDING PHYSICIAN STATEMENT I saw and evaluated the patient. I reviewed the resident's note and discussed the case with the resident. I agree with the resident's findings and plan as documented. SUBJECTIVE: OBJECTIVE: ASSESSMENT AND PLAN:
--- NOTE | 2018-11-12 14:47 | PN ---
Teaching Attending Note Name of Resident: Renate Montilla ATTENDING PHYSICIAN STATEMENT I saw and evaluated the patient. I reviewed the resident's note and discussed the case with the resident. I agree with the resident's findings and plan as documented. SUBJECTIVE: Non-verbal due to Trach/Vent. OBJECTIVE: Afebrile, Hemodynamically Stable. Awake, Alert. Last Vital Signs Temp Pulse Resp BP Pulse Ox 98 F 104 H 22 H 103/67 97 11/12/18 10:00 11/12/18 12:00 11/12/18 12:15 11/12/18 12:00 11/12/18 09:00 HEENT - Atraumatic, Normocephalic. s/p Trach/Vent Heart - S1, S2, Irregular. Lungs - good air entry bilaterally Abdomen - PEG in situ. Soft. Bowel Sounds normal. Extremities - Edema +. No calf tenderness. Laboratory Results - last 24 hr 11/11/18 11/11/18 11/11/18 11:20 17:56 21:45 WBC RBC Hgb Hct MCV MCH MCHC RDW Plt Count MPV Absolute Neuts (auto) Neutrophils % Neutrophils % (Manual) Band Neutrophils % Lymphocytes % Lymphocytes % (Manual) Monocytes % Monocytes % (Manual) Eosinophils % Eosinophils % (Manual) Basophils % Basophils % (Manual) Myelocytes % (Man) Promyelocytes % (Man) Blast Cells % (Manual) Nucleated RBC % Metamyelocytes Hypochromia Platelet Estimate Polychromasia Poikilocytosis Anisocytosis Microcytosis Macrocytosis Acanthocytes (Spur) Schistocytes PTT (Actin FS) Sodium Potassium Chloride Carbon Dioxide Anion Gap BUN Creatinine Est GFR (CKD-EPI)AfAm Est GFR (CKD-EPI)NonAf POC Glucometer 116 144 Random Glucose Calcium Phosphorus Magnesium Total Bilirubin AST ALT Alkaline Phosphatase Total Protein Albumin Double Strand DNA Ab <1 11/12/18 11/12/18 11/12/18 05:45 05:45 05:45 WBC 9.1 RBC 3.01 L Hgb 8.7 L Hct 27.2 L MCV 90.4 MCH 28.8 MCHC 31.9 L RDW 22.0 H Plt Count 124 L D MPV 8.2 Absolute Neuts (auto) 6.9 Neutrophils % 75.8 Neutrophils % (Manual) 76.0 Band Neutrophils % 0.0 Lymphocytes % 13.3 Lymphocytes % (Manual) 11.0 Monocytes % 7.8 Monocytes % (Manual) 9 D Eosinophils % 3.0 D Eosinophils % (Manual) 4.0 D Basophils % 0.1 Basophils % (Manual) 0.0 Myelocytes % (Man) 0 Promyelocytes % (Man) 0 Blast Cells % (Manual) 0 Nucleated RBC % 1 H Metamyelocytes 0 D Hypochromia 0 Platelet Estimate Decreased Polychromasia 0 Poikilocytosis 2+ Anisocytosis 2+ Microcytosis 1+ Macrocytosis 0 Acanthocytes (Spur) 1+ Schistocytes 1+ PTT (Actin FS) 55.5 H Sodium 142 Potassium 3.5 Chloride 108 H Carbon Dioxide 20 L Anion Gap 14 BUN 90.7 H Creatinine 3.9 H Est GFR (CKD-EPI)AfAm 14.96 Est GFR (CKD-EPI)NonAf 12.91 POC Glucometer Random Glucose 114 H Calcium 7.7 L Phosphorus 4.9 Magnesium 2.3 Total Bilirubin 1.8 H AST 88 H ALT 58 Alkaline Phosphatase 145 H Total Protein 4.9 L Albumin 1.4 L Double Strand DNA Ab 11/12/18 11:55 WBC RBC Hgb Hct MCV MCH MCHC RDW Plt Count MPV Absolute Neuts (auto) Neutrophils % Neutrophils % (Manual) Band Neutrophils % Lymphocytes % Lymphocytes % (Manual) Monocytes % Monocytes % (Manual) Eosinophils % Eosinophils % (Manual) Basophils % Basophils % (Manual) Myelocytes % (Man) Promyelocytes % (Man) Blast Cells % (Manual) Nucleated RBC % Metamyelocytes Hypochromia Platelet Estimate Polychromasia Poikilocytosis Anisocytosis Microcytosis Macrocytosis Acanthocytes (Spur) Schistocytes PTT (Actin FS) Sodium Potassium Chloride Carbon Dioxide Anion Gap BUN Creatinine Est GFR (CKD-EPI)AfAm Est GFR (CKD-EPI)NonAf POC Glucometer 113 Random Glucose Calcium Phosphorus Magnesium Total Bilirubin AST ALT Alkaline Phosphatase Total Protein Albumin Double Strand DNA Ab Current Medications Generic Name Dose Route Start Last Admin Trade Name Freq PRN Reason Stop Dose Admin Albuterol/Ipratropium 1 amp 11/06/18 08:00 11/12/18 13:54 Duoneb - NEB 1 amp RQID [facility] Administration Amantadine HCl 100 mg 11/06/18 10:00 11/12/18 09:50 Symmetrel Oral Solution - GT 100 mg BID [facility] Administration Amiodarone HCl 200 mg 11/11/18 18:30 11/12/18 09:32 Cordarone - GT 200 mg DAILY [facility] Administration Apixaban 2.5 mg 11/11/18 22:00 11/12/18 09:31 Eliquis - GT 2.5 mg BID [facility] Administration Carbidopa/Levodopa 2 each 11/05/18 22:45 11/12/18 05:54 Sinemet 25/250 - GT 2 each TID [facility] Administration Chlorhexidine Gluconate 1 applic 11/05/18 22:00 11/11/18 21:54 Hibiclens For Decolonization - TP 1 applic HS [facility] Administration Collagenase 1 applic 11/06/18 12:30 11/12/18 09:33 Santyl - TP 1 applic DAILY [facility] Administration Protocol Homatropine HBr 1 drop 11/06/18 10:00 11/12/18 09:34 Isopto Homatropine 5% - OD 1 drop QID [facility] Administration Ceftazidime/Avibactam 1.25 gm/ 100 mls @ 50 mls/hr 11/08/18 15:15 11/12/18 12 :13 Dextrose IVPB 50 mls/hr Q8H-IV [facility] Administration Protocol Metronidazole 500 mg in 100 mls @ 100 mls/hr 11/08/18 15:15 11/12/18 09:32 Flagyl 500mg Premixed Ivpb - IVPB 100 mls/hr Q8H-IV [facility] Administration Dextrose/Sodium Chloride 1,000 mls @ 50 mls/hr 11/11/18 11:20 11/11/18 12:03 D5-Ns - IV 50 mls/hr ASDIR [facility] Administration Latanoprost 1 drop 11/06/18 22:00 11/11/18 21:57 Xalatan 0.005% Eye Drops - OU 1 drop HS [facility] Administration Metoprolol Tartrate 5 mg 11/06/18 13:04 Lopressor Injection - IVPUSH Q4H PRN TACHYCARDIA Metoprolol Tartrate 75 mg 11/12/18 22:00 Lopressor - GT BID [facility] Pantoprazole Sodium 40 mg 11/06/18 10:45 11/12/18 09:31 Protonix Iv IVPUSH 40 mg DAILY [facility] Administration Tobramycin/Dexamethasone 1 drop 11/06/18 10:00 11/12/18 09:34 Tobradex Ophthalmic Suspension - OU 1 drop BID [facility] Administration Home Medications Medication Instructions Recorded Acetaminophen [Tylenol] 650 mg GT QID PRN 11/05/18 Albuterol 2.5/Ipratropium 0.5 1 neb IH QID 11/05/18 [Duoneb -] Amantadine Oral Solution 100 mg GT BID 11/05/18 [Symmetrel Oral Solution -] Amiodarone HCl [Cordarone -] 200 mg GT DAILY 11/05/18 Apixaban [Eliquis -] 5 mg GT BID 11/05/18 Ascorbic Acid 500 mg GT DAILY 11/05/18 Carbidopa/Levodopa 25/250 [Sinemet 2 each PO TID 11/05/18 25/250 -] Docusate Liquid [Colace Liquid -] 100 mg GT DAILY 11/05/18 Famotidine 20 mg GT DAILY 11/05/18 Furosemide [Lasix -] 40 mg GT DAILY 11/05/18 Homatropine HBr 5% Ophth Soln 1 drop OD QID 11/05/18 [Isopto Homatropine] Latanoprost 0.005% Eye Drops 1 drop OU HS 11/05/18 [Xalatan 0.005% Eye Drops -] Metoprolol Tartrate [Lopressor -] 50 mg GT BID 11/05/18 Multivitamin [Multiple Vitamins] 15 ml GT DAILY 11/05/18 Polyethylene Glycol 3350 [Miralax 17 gm GT DAILY 11/05/18 (For Bowel Prep) -] Tobramycin/Dexamethasone [Tobradex 1 drop OU BID 11/05/18 Eye Drops] Zinc Sulfate [Zinc-220] 220 mg GT DAILY 11/05/18 ASSESSMENT AND PLAN: 88 year old male with Parkinson's Disease, COPD, HTN, Atrial Fibrillation, CRF s /p Trach/PEG, presented with fevers/chills, abdominal pain/distension, found to have SBO and sepsis secondary to Pneumonia. 1. Acute on Chronic Respiratory Failure and Severe Sepsis secondary to Pneumonia - improving. s/p Trach, Vent dependent Sputum Cx positive for Pseudomonas, Klebsiella ESBL, Proteus ESBL Continue Ceftazidime/Avibactam, Flagyl Afebrile, Hemodynamically Stable. ID following. 2. Dilated CBD/Elevated LFTs - LFTs improving - further management as per GI - if any deterioration, will request RUQ US and re-evaluation by GI for possible MRCP. Afebrile, Hemodynamically Stable. 3. Atrial fibrillation with RVR - resumed on Metoprolol and Amiodarone. Metoprolol dose increased to 75mg BID due to RVR. Transitioned from Heparin drip to Eliquis. 4. [place] sec to Sepsis versus contrast induced nephropathy. IV hydration. No obstruction on imaging. Nephrology following. 5. Elevated troponin - sec to demand due to sepsis. TnI max 0.07. No further work-up currently. Can follow with cardiology as out-patient. 6. Parkinson's Disease - Continue Sinemet/Amantadine. 7. HTN - Hypotension resolved. Resumed on Metoprolol. 8. Dysphagia s/p PEG - SBO resolved. PEG feeds resumed. NG tube removed. 9. Thrombocytopenia - will monitor. Off Heparin, now on Eliquis. DVT Px - on Eliquis GI Px - PPI.
[2018-11-12] MEDS: DEXTROSE 5%-NORMAL SALINE 1,000 ML IV SCH (14:59)
--- NOTE | 2018-11-12 16:59 | PN.GI ---
GI Progress Note Subjective: No acute events Granddaughter present at bedside Tolerating feeds per nurse and he had a BM. No residuals - Objective Vital Signs: Vital Signs Temperature 98.4 F 11/12/18 16:00 Pulse Rate 96 H 11/12/18 16:00 Respiratory Rate 20 11/12/18 16:00 Blood Pressure 92/55 L 11/12/18 16:00 O2 Sat by Pulse Oximetry (%) 97 11/12/18 09:00 Constitutional: Calm Eyes: No: Sclera Icterus Neck: Yes: Other (Trach) Cardiovascular: Yes: Tachycardia, Pulse Irregular Respiratory: Yes: Diminished (at bases bilaterally) Gastrointestinal Inspection: Yes: Other (G-Tube in place in right paramedian abdomen.). No: Scars ...Auscultate: Yes: Normoactive Bowel Sounds ...Palpate: Yes: Soft. No: Tenderness (No grimacing upon palpation) Edema: Yes Edema: LUE: 1+, RUE: 2+ Neurological: Yes: Other (Awake) Labs: CBC, BMP 11/12/18 05:45 11/12/18 05:45 INR, PTT INR 2.22 (0.83-1.09) H 11/06/18 05:30 Hepatic Panel Total Bilirubin 1.8 mg/dL (0.2-1) H 11/12/18 05:45 Direct Bilirubin 1.5 mg/dL (0.0-0.2) H 11/11/18 05:05 AST 88 U/L (15-37) H 11/12/18 05:45 ALT 58 U/L (13-61) 11/12/18 05:45 Alkaline Phosphatase 145 U/L (45-117) H 11/12/18 05:45 Albumin 1.4 g/dl (3.4-5.0) L 11/12/18 05:45 Laboratory Tests 11/11/18 11:20 Hep A IgM Ab Confirm Pending Hepatitis A Ab Total Pending Hep Bs Antigen Pending Hep Bs Antibody Pending Hep B Core Total Ab Pending Hep B Core IgM Ab Pending Hepatitis Be Antibody Pending Hepatitis Be Antigen Pending HCV Quantitation Pending Problem List - Problems (1) Ileus Assessment/Plan: Tolerating feeds. advance as tolerated to goal Aspiration precautions Code(s): K56.7 - ILEUS, UNSPECIFIED (2) Abnormal liver function tests Assessment/Plan: Improved. Likely multifactorial including component of ischemic hepatopathy in setting of sepsis, ? component of underlying chronic liver disease and meds. No gallstones noted on US Eliminate hepatotoxic agents as feasible Follow-up infectious hepatitis serologies Ordered repeat INR for AM, hepatic panel goals of care to be determined Code(s): R94.5 - ABNORMAL RESULTS OF LIVER FUNCTION STUDIES (3) Fecal retention Assessment/Plan: Noted on recent CT scan Added miraLAX 17g daily to regimen Code(s): K59.00 - CONSTIPATION, UNSPECIFIED
[2018-11-12] MEDS: POLYETHYLENE GLYCOL 3350 119 GM BTL GT SCH (18:00)
[2018-11-12] MEDS: CHLORHEXIDINE GLUCONATE 4% CLEANSER FOR DECOLONIZATION TP SCH (21:48)
[2018-11-12] MEDS: LATANOPROST 0.005% OPHTH SOLN 2.5ML BOTTLE OU SCH (22:02)
[2018-11-12 22:06] LABS: HEP B CORE AB, TOT Negative (Negative)
[2018-11-13] MEDS: CEFTAZIDIME/AVIBACTAM 1.25 GM in DEXTROSE 5%-WATER - 100 ML IVPB SCH ×3 (02:00→17:26)
[2018-11-13] MEDS: CARBIDOPA/LEVODOPA 25/250 TABLET (FP) GT SCH ×3 (06:00→22:00)
[2018-11-13 06:27] LABS: HEMOGLOBIN 8.1 GM/dL (11.7-16.9); MCH 29.2 pg (25.7-33.7); MCHC 32.5 g/dl (32.0-35.9); MEAN CELL VOLUME 89.9 fl (80-96); MEAN PLT VOLUME 8.2 fl (7.5-11.1); PLATELET COUNT 105 K/MM3 (134-434); RBC 2.79 M/mm3 (4.00-5.60); RDW 22.7 % (11.9-15.9); WHITE BLOOD COUNT 8.8 K/mm3 (4.0-10.0)
[2018-11-13 06:49] LABS: INR 2.87 (0.83-1.09); PROTHROMBIN TIME (PATIENT) 34.2 SEC (9.7-13.0)
[2018-11-13 06:56] LABS: ALBUMIN 1.3 g/dl (3.4-5.0); BILIRUBIN,TOTAL 1.4 mg/dL (0.2-1); BLOOD UREA NITROGEN 91.8 mg/dL (7-18); CALCIUM 7.5 mg/dL (8.5-10.1); CREATININE 4.1 mg/dL (0.55-1.3); MAGNESIUM 2.3 mg/dL (1.8-2.4); PHOSPHOROUS 4.4 mg/dL (2.5-4.9); POTASSIUM 3.4 mmol/L (3.5-5.1); TOT PROT 4.6 g/dl (6.4-8.2)
[2018-11-13 07:00] LABS: ALBUMIN 1.3 g/dl (3.4-5.0); BILIRUBIN,DIRECT 0.9 mg/dL (0.0-0.2); BILIRUBIN,TOTAL 1.4 mg/dL (0.2-1); TOT PROT 4.6 g/dl (6.4-8.2)
[2018-11-13] MEDS: ALBUTEROL SO4 2.5/IPRATROPIUM 0.5 INH SOL 3 ML VIAL.NEB. NEB SCH ×4 (08:48→20:30)
[2018-11-13] MEDS ORDERED: PT OWN MED DRAWER 7, Y5N ONE ×3 (09:26→22:27)
--- NOTE | 2018-11-13 09:26 | PN ---
Physical Exam: SUBJECTIVE: Patient seen and examined at bedside. No acute events overnight. OBJECTIVE: Vital Signs Period Temp Pulse Resp BP Sys/Cope Pulse Ox Last 24 Hr 98 F-98.6 F 95-113 20-36 91-123/54-72 99-100 GENERAL: Trach, on vent. NAD HEAD: NC/AT EYES: Tracks movement with eyes. NECK: Trachea midline, full range of motion, supple. LUNGS: Scattered Rhonchi HEART: irregular + S1S2. ABDOMEN: Peg in place, Typanic to percussion. ND EXTREMITIES: 1+ pitting edema lower extremities Laboratory Results - last 24 hr 11/10/18 11/11/18 11/11/18 16:45 11:20 11:20 WBC RBC Hgb Hct MCV MCH MCHC RDW Plt Count MPV Neutrophils % (Manual) Band Neutrophils % Lymphocytes % (Manual) Monocytes % (Manual) Eosinophils % (Manual) Basophils % (Manual) Myelocytes % (Man) Promyelocytes % (Man) Blast Cells % (Manual) Nucleated RBC % Metamyelocytes Hypochromia Platelet Estimate Polychromasia Poikilocytosis Anisocytosis Microcytosis Macrocytosis Acanthocytes (Spur) Schistocytes PT with INR INR PTT (Actin FS) Sodium Potassium Chloride Carbon Dioxide Anion Gap BUN Creatinine Est GFR (CKD-EPI)AfAm Est GFR (CKD-EPI)NonAf POC Glucometer Random Glucose Calcium Phosphorus Magnesium Total Bilirubin Direct Bilirubin AST ALT Alkaline Phosphatase Total Protein Total Protein (PEP) 4.9 L Albumin Albumin (PEP) 2.2 L Globulin 2.7 Albumin/Globulin Ratio 0.8 Beta Globulins 0.7 Urine Eosinophils None seen JENNIFER M-Aleksandr Not observed FACUNDO Screen Negative Double Strand DNA Ab <1 Hep A IgM Ab Confirm Negative Hepatitis A Ab Total Positive H Hep Bs Antigen Negative Hep Bs Antibody Non reactive Hep B Core Total Ab Negative Hep B Core IgM Ab Negative Hepatitis Be Antibody Negative Hepatitis Be Antigen Negative 11/12/18 11/12/18 11/13/18 05:45 11:55 05:20 WBC RBC Hgb Hct MCV MCH MCHC RDW Plt Count MPV Neutrophils % (Manual) 76.0 Band Neutrophils % 0.0 Lymphocytes % (Manual) 11.0 Monocytes % (Manual) 9 D Eosinophils % (Manual) 4.0 D Basophils % (Manual) 0.0 Myelocytes % (Man) 0 Promyelocytes % (Man) 0 Blast Cells % (Manual) 0 Nucleated RBC % 1 H Metamyelocytes 0 D Hypochromia 0 Platelet Estimate Decreased Polychromasia 0 Poikilocytosis 2+ Anisocytosis 2+ Microcytosis 1+ Macrocytosis 0 Acanthocytes (Spur) 1+ Schistocytes 1+ PT with INR INR PTT (Actin FS) 46.6 H Sodium Potassium Chloride Carbon Dioxide Anion Gap BUN Creatinine Est GFR (CKD-EPI)AfAm Est GFR (CKD-EPI)NonAf POC Glucometer 113 Random Glucose Calcium Phosphorus Magnesium Total Bilirubin Direct Bilirubin AST ALT Alkaline Phosphatase Total Protein Total Protein (PEP) Albumin Albumin (PEP) Globulin Albumin/Globulin Ratio Beta Globulins Urine Eosinophils JENNIFER M-Aleksandr FACUNDO Screen Double Strand DNA Ab Hep A IgM Ab Confirm Hepatitis A Ab Total Hep Bs Antigen Hep Bs Antibody Hep B Core Total Ab Hep B Core IgM Ab Hepatitis Be Antibody Hepatitis Be Antigen 11/13/18 11/13/18 11/13/18 05:20 05:20 05:20 WBC 8.8 RBC 2.79 L Hgb 8.1 L Hct 25.0 L MCV 89.9 MCH 29.2 MCHC 32.5 RDW 22.7 H Plt Count 105 L MPV 8.2 Neutrophils % (Manual) Band Neutrophils % Lymphocytes % (Manual) Monocytes % (Manual) Eosinophils % (Manual) Basophils % (Manual) Myelocytes % (Man) Promyelocytes % (Man) Blast Cells % (Manual) Nucleated RBC % Metamyelocytes Hypochromia Platelet Estimate Polychromasia Poikilocytosis Anisocytosis Microcytosis Macrocytosis Acanthocytes (Spur) Schistocytes PT with INR 34.20 H INR 2.87 H PTT (Actin FS) Sodium 142 Potassium 3.4 L Chloride 108 H Carbon Dioxide 20 L Anion Gap 14 BUN 91.8 H Creatinine 4.1 H Est GFR (CKD-EPI)AfAm 14.08 Est GFR (CKD-EPI)NonAf 12.15 POC Glucometer Random Glucose 137 H Calcium 7.5 L Phosphorus 4.4 Magnesium 2.3 Total Bilirubin 1.4 H Direct Bilirubin AST 33 ALT 36 Alkaline Phosphatase 159 H Total Protein 4.6 L Total Protein (PEP) Albumin 1.3 L Albumin (PEP) Globulin Albumin/Globulin Ratio Beta Globulins Urine Eosinophils JENNIFER M-Aleksandr FACUNDO Screen Double Strand DNA Ab Hep A IgM Ab Confirm Hepatitis A Ab Total Hep Bs Antigen Hep Bs Antibody Hep B Core Total Ab Hep B Core IgM Ab Hepatitis Be Antibody Hepatitis Be Antigen 11/13/18 05:20 WBC RBC Hgb Hct MCV MCH MCHC RDW Plt Count MPV Neutrophils % (Manual) Band Neutrophils % Lymphocytes % (Manual) Monocytes % (Manual) Eosinophils % (Manual) Basophils % (Manual) Myelocytes % (Man) Promyelocytes % (Man) Blast Cells % (Manual) Nucleated RBC % Metamyelocytes Hypochromia Platelet Estimate Polychromasia Poikilocytosis Anisocytosis Microcytosis Macrocytosis Acanthocytes (Spur) Schistocytes PT with INR INR PTT (Actin FS) Sodium Potassium Chloride Carbon Dioxide Anion Gap BUN Creatinine Est GFR (CKD-EPI)AfAm Est GFR (CKD-EPI)NonAf POC Glucometer Random Glucose Calcium Phosphorus Magnesium Total Bilirubin 1.4 H Direct Bilirubin 0.9 H AST 31 ALT 38 Alkaline Phosphatase 157 H Total Protein 4.6 L Total Protein (PEP) Albumin 1.3 L Albumin (PEP) Globulin Albumin/Globulin Ratio Beta Globulins Urine Eosinophils JENNIFER M-Aleksandr FACUNDO Screen Double Strand DNA Ab Hep A IgM Ab Confirm Hepatitis A Ab Total Hep Bs Antigen Hep Bs Antibody Hep B Core Total Ab Hep B Core IgM Ab Hepatitis Be Antibody Hepatitis Be Antigen Active Medications Generic Name Dose Route Start Last Admin Trade Name Freq PRN Reason Stop Dose Admin Albuterol/Ipratropium 1 amp 11/06/18 08:00 11/13/18 08:48 Duoneb - NEB 1 amp RQID [facility]CRECIA Administration Amantadine HCl 100 mg 11/06/18 10:00 11/12/18 22:03 Symmetrel Oral Solution - GT 100 mg BID LUCRECIA Administration Amiodarone HCl 200 mg 11/11/18 18:30 11/12/18 09:32 Cordarone - GT 200 mg DAILY [facility] Administration Apixaban 2.5 mg 11/11/18 22:00 11/12/18 21:48 Eliquis - GT 2.5 mg BID [facility]IA Administration Carbidopa/Levodopa 2 each 11/05/18 22:45 11/13/18 06:00 Sinemet 25/250 - GT 2 each TID [facility]CRECIA Administration Chlorhexidine Gluconate 1 applic 11/05/18 22:00 11/12/18 21:48 Hibiclens For Decolonization - TP 1 applic HS [facility] Administration Collagenase 1 applic 11/06/18 12:30 11/12/18 09:33 Santyl - TP 1 applic DAILY [facility] Administration Protocol Homatropine HBr 1 drop 11/06/18 10:00 11/12/18 22:02 Isopto Homatropine 5% - OD 1 drop QID [facility] Administration Ceftazidime/Avibactam 1.25 gm/ 100 mls @ 50 mls/hr 11/08/18 15:15 11/13/18 02 :00 Dextrose IVPB 50 mls/hr Q8H-IV [facility] Administration Protocol Metronidazole 500 mg in 100 mls @ 100 mls/hr 11/08/18 15:15 11/13/18 02:00 Flagyl 500mg Premixed Ivpb - IVPB 100 mls/hr Q8H-IV [facility] Administration Dextrose/Sodium Chloride 1,000 mls @ 50 mls/hr 11/11/18 11:20 11/12/18 14:59 D5-Ns - IV 50 mls/hr ASDIR [facility] Administration Potassium Chloride 10 meq in 100 mls @ 100 mls/hr 11/13/18 07:30 Potassium Chloride 10 Meq Premix Ivpb - IVPB 11/13/18 09:29 Q60M [facility] Latanoprost 1 drop 11/06/18 22:00 11/12/18 22:02 Xalatan 0.005% Eye Drops - OU 1 drop HS [facility] Administration Metoprolol Tartrate 5 mg 11/06/18 13:04 Lopressor Injection - IVPUSH Q4H PRN TACHYCARDIA Metoprolol Tartrate 75 mg 11/12/18 22:00 11/12/18 21:49 Lopressor - GT 75 mg BID [facility]CR[facility]IA Administration Pantoprazole Sodium 40 mg 11/06/18 10:45 11/12/18 09:31 Protonix Iv IVPUSH 40 mg DAILY [facility] Administration Polyethylene Glycol 17 gm 11/12/18 17:00 11/12/18 18:00 Miralax (For Daily Use) - GT 17 grams DAILY [facility] Administration Tobramycin/Dexamethasone 1 drop 11/06/18 10:00 11/12/18 22:02 Tobradex Ophthalmic Suspension - OU 1 drop BID [facility]CRECIA Administration ASSESSMENT/PLAN: 88 yo M w/ PMH Parkinson's, COPD, HTN, CHF, Afib, respiratory failure ( trached to vent). Pt has PEG. Pt presented to the ED for abdominal distention. Pt is admitted for Severe Sepsis 2/2 Pneumonia and possible SBO. #Neuro- Parkinson's disease -c/w sinemet 25/250 -pain mgmt w/ dilauded 0.5 mg #Cardiology- Atrial Fibrillation, HTN, Diastolic HF -Amiodarone 200 mg GT Daily for rate control -D50-NS DC'ed as pt now resuming feeds. -[facility] -Echo EF 65-70 %, LV fxn normal, mild , moderate AR , TR #Respiratory- ARDS, Sepsis 2/2 Pneumonia -Trached to vent -CXRay worsening R sided infiltrate -sputum culture growing Klebsiella pneumoniae, Pseudomonas Aerginosa, Proteus. Sensitivities reviewed #RENAL - [place], worsening Cr 4.1 today. - monitor urine output. will continue to monitor today as U output seems to be improving. Dr Ibrahim on board. No need for TAX COMMISSIONER currently. -Urine eosinophils negative. #GI -SBO, resolved - mild nonspecific CBD dilation - CT abdomen/pelvis reviewed. SBO resolved. -s/p NGT decompression -GI on board--> Follow-up infectious hepatitis serologies, Ordered repeat INR-- > 2.87 trending upwards. -possible MRCP once optimized -transaminitis improved #INFECTIOUS DISEASE -Sepsis likely 2/2 pneumonia -lactate downtrending 10.8-->3.8 -leukocytosis resolved. 14.7-->18.4--> 11.2--> 9.1--> 8.8 today. -ID on board -flagyl as per ID recs day 6 -c/w Ceftazidime/Avibactam day 6 #FEN -D50-NS @ 50mls -continue to monitor electrolytes and replete as necessary -tube feeds resumed. #DVT - SCDs #CODE - DNR -Case discussed with family. family wants all interventions, but keep DNR. consent signed for central line if needed. Training And Development Assistant and Rev Juanito as well as Floor production intern had detailed conversation with family at bedside. -Palliative Care DISPO: ICU Visit type - Emergency Visit Emergency Visit: Yes ED Registration Date: 11/05/18 Care time: The patient presented to the Emergency Department on the above date and was hospitalized for further evaluation of their emergent condition. - New Patient This patient is new to me today: No - Critical Care Critical Care patient: Yes Total Critical Care Time (in minutes): 35 Critical Care Statement: The care of this patient involved high complexity decision making to prevent further life threatening deterioration of the patient 's condition and/or to evaluate & treat vital organ system(s) failure or risk of failure. - Discharge Referral Referred to [facility] Med P.C.: No ATTENDING PHYSICIAN STATEMENT I saw and evaluated the patient. I reviewed the resident's note and discussed the case with the resident. I agree with the resident's findings and plan as documented. SUBJECTIVE: OBJECTIVE: ASSESSMENT AND PLAN:
[2018-11-13] MEDS: AMIODARONE HCL 200 MG TABLET (FP) GT SCH (10:09)
[2018-11-13] MEDS: PANTOPRAZOLE SODIUM 40 MG VIAL IVPUSH SCH (10:09)
[2018-11-13] MEDS: METOPROLOL TARTRATE 50 MG TABLET (FP) GT SCH ×2 (10:09→21:59)
[2018-11-13] MEDS: APIXABAN 2.5 MG TABLET GT SCH (10:09)
[2018-11-13] MEDS: KCL 10 MEQ IVPB 10 MEQ/100 ML INFUS.BAG IVPB SCH ×2 (10:10→10:42)
[2018-11-13] MEDS: [UNRECOGNIZED DRUG - OTHER] OD SCH ×4 (10:12→22:01)
[2018-11-13] MEDS: COLLAGENASE CLOSTRIDIUM HIST. 30 GRAMS TUBE TP SCH (10:13)
[2018-11-13] MEDS: AMANTADINE HCL 100MG/10 ML UNIT DOSE CUPS GT SCH (10:14)
[2018-11-13] MEDS: TOBRA 0.3%/DEXAMETH 0.1% OPHTHALMIC SUSP 2.5 ML BTL OU SCH ×2 (10:14→22:01)
--- NOTE | 2018-11-13 10:29 | PN ---
Physical Exam: SUBJECTIVE: Patient seen and examined at bedside this morning. No acute overnight events. OBJECTIVE: Vital Signs Period Temp Pulse Resp BP Sys/Cope Pulse Ox Last 24 Hr 98.1 F-98.6 F 95-113 20-36 91-119/54-72 99-100 GENERAL: The patient is awake. Tracheostomy, on ventilator HEAD: Normal with no signs of trauma. EYES: Pupils equally reactive to light, sclera anicteric, conjunctiva clear NECK: Trach in place, site clean, dry. LUNGS: Breath sounds equal, rhonchi bilaterally. HEART: Tachycardic, irregular rhythm, S1, S2 without murmur, rub or gallop. ABDOMEN: Soft, mild distention. Hypoactive bowel sounds x4 quadrants. Gastric tube in place, site clean dry. EXTREMITIES: 1+ pitting edema in hands, +1 pitting edema bilateral lower extremities. SKIN: Warm, dry. Significant ecchymosis noted on bilateral hands Laboratory Results - last 24 hr 11/10/18 11/11/18 11/11/18 16:45 11:20 11:20 WBC RBC Hgb Hct MCV MCH MCHC RDW Plt Count MPV PT with INR INR PTT (Actin FS) Sodium Potassium Chloride Carbon Dioxide Anion Gap BUN Creatinine Est GFR (CKD-EPI)AfAm Est GFR (CKD-EPI)NonAf POC Glucometer Random Glucose Calcium Phosphorus Magnesium Total Bilirubin Direct Bilirubin AST ALT Alkaline Phosphatase Total Protein Total Protein (PEP) 4.9 L Albumin Albumin (PEP) 2.2 L Globulin 2.7 Albumin/Globulin Ratio 0.8 Beta Globulins 0.7 Urine Eosinophils None seen JENNIFER M-Aleksandr Not observed FACUNDO Screen Negative Double Strand DNA Ab <1 Hep A IgM Ab Confirm Negative Hepatitis A Ab Total Positive H Hep Bs Antigen Negative Hep Bs Antibody Non reactive Hep B Core Total Ab Negative Hep B Core IgM Ab Negative Hepatitis Be Antibody Negative Hepatitis Be Antigen Negative 11/12/18 11/13/18 11/13/18 11:55 05:20 05:20 WBC 8.8 RBC 2.79 L Hgb 8.1 L Hct 25.0 L MCV 89.9 MCH 29.2 MCHC 32.5 RDW 22.7 H Plt Count 105 L MPV 8.2 PT with INR INR PTT (Actin FS) 46.6 H Sodium Potassium Chloride Carbon Dioxide Anion Gap BUN Creatinine Est GFR (CKD-EPI)AfAm Est GFR (CKD-EPI)NonAf POC Glucometer 113 Random Glucose Calcium Phosphorus Magnesium Total Bilirubin Direct Bilirubin AST ALT Alkaline Phosphatase Total Protein Total Protein (PEP) Albumin Albumin (PEP) Globulin Albumin/Globulin Ratio Beta Globulins Urine Eosinophils JENNIFER M-Aleksandr FACUNDO Screen Double Strand DNA Ab Hep A IgM Ab Confirm Hepatitis A Ab Total Hep Bs Antigen Hep Bs Antibody Hep B Core Total Ab Hep B Core IgM Ab Hepatitis Be Antibody Hepatitis Be Antigen 11/13/18 11/13/18 11/13/18 05:20 05:20 05:20 WBC RBC Hgb Hct MCV MCH MCHC RDW Plt Count MPV PT with INR 34.20 H INR 2.87 H PTT (Actin FS) Sodium 142 Potassium 3.4 L Chloride 108 H Carbon Dioxide 20 L Anion Gap 14 BUN 91.8 H Creatinine 4.1 H Est GFR (CKD-EPI)AfAm 14.08 Est GFR (CKD-EPI)NonAf 12.15 POC Glucometer Random Glucose 137 H Calcium 7.5 L Phosphorus 4.4 Magnesium 2.3 Total Bilirubin 1.4 H 1.4 H Direct Bilirubin 0.9 H AST 33 31 ALT 36 38 Alkaline Phosphatase 159 H 157 H Total Protein 4.6 L 4.6 L Total Protein (PEP) Albumin 1.3 L 1.3 L Albumin (PEP) Globulin Albumin/Globulin Ratio Beta Globulins Urine Eosinophils JENNIFER M-Aleksandr FACUNDO Screen Double Strand DNA Ab Hep A IgM Ab Confirm Hepatitis A Ab Total Hep Bs Antigen Hep Bs Antibody Hep B Core Total Ab Hep B Core IgM Ab Hepatitis Be Antibody Hepatitis Be Antigen Active Medications Generic Name Dose Route Start Last Admin Trade Name Freq PRN Reason Stop Dose Admin Albuterol/Ipratropium 1 amp 11/06/18 08:00 11/13/18 08:48 Duoneb - NEB 1 amp RQID LUCRECIA Administration Amantadine HCl 100 mg 11/06/18 10:00 11/13/18 10:14 Symmetrel Oral Solution - GT 100 mg BID LUCRECIA Administration Amiodarone HCl 200 mg 11/11/18 18:30 11/13/18 10:09 Cordarone - GT 200 mg DAILY LUCRECIA Administration Apixaban 2.5 mg 11/11/18 22:00 11/13/18 10:09 Eliquis - GT 2.5 mg BID LUCRECIA Administration Carbidopa/Levodopa 2 each 11/05/18 22:45 11/13/18 06:00 Sinemet 25/250 - GT 2 each TID LUCRECIA Administration Chlorhexidine Gluconate 1 applic 11/05/18 22:00 11/12/18 21:48 Hibiclens For Decolonization - TP 1 applic HS LUCRECIA Administration Collagenase 1 applic 11/06/18 12:30 11/13/18 10:13 Santyl - TP 1 applic DAILY LUCRECIA Administration Protocol Homatropine HBr 1 drop 11/06/18 10:00 11/13/18 10:12 Isopto Homatropine 5% - OD 1 drop QID LUCRECIA Administration Ceftazidime/Avibactam 1.25 gm/ 100 mls @ 50 mls/hr 11/08/18 15:15 11/13/18 02 :00 Dextrose IVPB 50 mls/hr Q8H-IV LUCRECIA Administration Protocol Metronidazole 500 mg in 100 mls @ 100 mls/hr 11/08/18 15:15 11/13/18 10:10 Flagyl 500mg Premixed Ivpb - IVPB 100 mls/hr Q8H-IV LUCRECIA Administration Dextrose/Sodium Chloride 1,000 mls @ 50 mls/hr 11/11/18 11:20 11/12/18 14:59 D5-Ns - IV 50 mls/hr ASDIR LUCRECIA Administration Latanoprost 1 drop 11/06/18 22:00 11/12/18 22:02 Xalatan 0.005% Eye Drops - OU 1 drop HS LUCRECIA Administration Metoprolol Tartrate 5 mg 11/06/18 13:04 Lopressor Injection - IVPUSH Q4H PRN TACHYCARDIA Metoprolol Tartrate 75 mg 11/12/18 22:00 11/13/18 10:09 Lopressor - GT 75 mg BID LUCRECIA Administration Pantoprazole Sodium 40 mg 11/06/18 10:45 11/13/18 10:09 Protonix Iv IVPUSH 40 mg DAILY LUCRECIA Administration Polyethylene Glycol 17 gm 11/12/18 17:00 11/12/18 18:00 Miralax (For Daily Use) - GT 17 grams DAILY LUCRECIA Administration Tobramycin/Dexamethasone 1 drop 11/06/18 10:00 11/13/18 10:14 Tobradex Ophthalmic Suspension - OU 1 drop BID LUCRECIA Administration ASSESSMENT/PLAN: Patient is an 88 year old male with hostory of Parkinson's, COPD, congestive ehart failure, hypertension, Afib on Eliquis, chronic respiratory failure with trach, PEG tube, history of prostate cancer admitted for sepsis secondary to pneumonia, and small bowel obstruction. Sepsis secondary to pneumonia with acute on chronic respiratory failure -WBC 8.8, patient afebrile overnight -Blood cultures pending, no growth over 96 hours. -Chest radiograph reveals congestion and infiltration continuing to slightly improve. -CT abdomen, pelvis 11/09 reveals resolution of small bowel obstruction. -Continue Ceftazidime/Avibactam and Flagyl -ID recommendations (Dr. Vogt) appreciated. Acute, complicated urinary tract infection -Urine culture grows yeat- like organism -Patient is on Ceftazidime/Avibactam, Flagyl Congestive heart failure -Transthoracic cardiac ECHO reveals EF 65-70%, no LVH, mild RA dilation, moderate TR, moderate AR, no pericardial effusion -EKG 11/08/18: irregular rhythm, HR 98, QTc 589 -Holding Lasix while patient is on IV fluids -Strict intake, output. Daily weights. SBO, resolved -CT abdomen, pelvis 11/09 reveals resolution of small bowel obstruction. -Tube feedings restarted, will increase to goal. -General surgery recommendations (Dr. Redd) appreciated. Transaminitis -improving -Likely multifactorial. Component of shock liver secondary to sepsis. -Follow Hepatitis serologies. -Gastroenterology recommendations (Dr. Quinonez) appreciated. Atrial fibrillation -Metoprolol increased to 75mg BID -Eliquis held today, given elevated INR. Will follow INR and reinstate once appropriate. Acute kidney injury -BUN 91.8/ Cr 4.1 -increasing -Nephrology recommendations (Dr. Ibrahim) appreciated. [place] likely multifactorial -Follow urine studies Hypertension -Continue Metoprolol 75mg BID COPD -Continue Duo-nebs -Maintain oxygen saturation greater than 90% Parkinson's -Continue Amantadine, Sinemet. FEN -IV D5NS 50mL/hr -Monitor electrolytes, replete as necessary. -Perative tube feeds Prophylaxis -Eliquis 2.5 GT BID -Protonix 40mg IV daily Disposition -Continue to monitor in ICU Patient is DNR Visit type - Emergency Visit Emergency Visit: Yes ED Registration Date: 11/05/18 Care time: The patient presented to the Emergency Department on the above date and was hospitalized for further evaluation of their emergent condition. - New Patient This patient is new to me today: Yes Date on this admission: 11/13/18 - Critical Care Critical Care patient: Yes Total Critical Care Time (in minutes): 36 Critical Care Statement: The care of this patient involved high complexity decision making to prevent further life threatening deterioration of the patient 's condition and/or to evaluate & treat vital organ system(s) failure or risk of failure. - Discharge Referral Referred to [facility] Med P.C.: No ATTENDING PHYSICIAN STATEMENT I saw and evaluated the patient. I reviewed the resident's note and discussed the case with the resident. I agree with the resident's findings and plan as documented. SUBJECTIVE: OBJECTIVE: ASSESSMENT AND PLAN:
[2018-11-13] MEDS: POLYETHYLENE GLYCOL 3350 119 GM BTL GT SCH (10:42)
--- NOTE | 2018-11-13 10:44 | PN ---
Teaching Attending Note Name of Resident: Faustino Arceo ATTENDING PHYSICIAN STATEMENT I saw and evaluated the patient. I reviewed the resident's note and discussed the case with the resident. I agree with the resident's findings and plan as documented. SUBJECTIVE: Pt seen and examined in the ICU. Vented, more awake. Remains tachypneic. Urine output better yesterday. OBJECTIVE: Vital Signs Period Temp Pulse Resp BP Sys/Cope Pulse Ox Last 24 Hr 98.1 F-98.6 F 95-113 20-36 91-119/54-72 99-100 Intake & Output 11/10/18 11/11/18 11/12/18 11/13/18 23:59 23:59 23:59 23:59 Intake Total 3641 1581 3640 1700 Output Total 448 519 9307 250 Balance 3291 1281 2540 1450 Weight 86.001 kg 88.3 kg 88.949 kg 89.857 kg Gen: vented, tachypneic Heart: irregular, tachycardic Lung: scattered rhonchi Abd: soft, nontender Ext: + edema CBC, BMP 11/13/18 05:20 11/13/18 05:20 Active Medications Albuterol/Ipratropium (Duoneb -) 1 amp NEB RQID [facility] Last Admin: 11/13/18 08:48 Dose: 1 amp Amantadine HCl (Symmetrel Oral Solution -) 100 mg GT BID [facility] Last Admin: 11/13/18 10:14 Dose: 100 mg Amiodarone HCl (Cordarone -) 200 mg GT DAILY [facility] Last Admin: 11/13/18 10:09 Dose: 200 mg Apixaban (Eliquis -) 2.5 mg GT BID [facility] Last Admin: 11/13/18 10:09 Dose: 2.5 mg Carbidopa/Levodopa (Sinemet 25/250 -) 2 each GT TID [facility] Last Admin: 11/13/18 06:00 Dose: 2 each Chlorhexidine Gluconate (Hibiclens For Decolonization -) 1 applic TP HS [facility] Last Admin: 11/12/18 21:48 Dose: 1 applic Collagenase (Santyl -) 1 applic TP DAILY [facility]; Protocol Last Admin: 11/13/18 10:13 Dose: 1 applic Homatropine HBr (Isopto Homatropine 5% -) 1 drop OD QID [facility] Last Admin: 11/13/18 10:12 Dose: 1 drop Ceftazidime/Avibactam 1.25 gm/ (Dextrose) 100 mls @ 50 mls/hr IVPB Q8H-IV LUCRECIA; Protocol Last Admin: 11/13/18 02:00 Dose: 50 mls/hr Metronidazole (Flagyl 500mg Premixed Ivpb -) 500 mg in 100 mls @ 100 mls/hr IVPB Q8H-IV LUCRECIA Last Admin: 11/13/18 10:10 Dose: 100 mls/hr Dextrose/Sodium Chloride (D5-Ns -) 1,000 mls @ 50 mls/hr IV ASDIR LUCRECIA Last Admin: 11/12/18 14:59 Dose: 50 mls/hr Latanoprost (Xalatan 0.005% Eye Drops -) 1 drop OU HS [facility] Last Admin: 11/12/18 22:02 Dose: 1 drop Metoprolol Tartrate (Lopressor Injection -) 5 mg IVPUSH Q4H PRN PRN Reason: TACHYCARDIA Metoprolol Tartrate (Lopressor -) 75 mg GT BID [facility] Last Admin: 11/13/18 10:09 Dose: 75 mg Pantoprazole Sodium (Protonix Iv) 40 mg IVPUSH DAILY [facility] Last Admin: 11/13/18 10:09 Dose: 40 mg Polyethylene Glycol (Miralax (For Daily Use) -) 17 gm GT DAILY [facility] Last Admin: 11/13/18 10:42 Dose: 17 grams Tobramycin/Dexamethasone (Tobradex Ophthalmic Suspension -) 1 drop OU BID [facility] Last Admin: 11/13/18 10:14 Dose: 1 drop ASSESSMENT AND PLAN: Chronic Respiratory Failure Pneumonia Severe Sepsis Acute Kidney Injury Lactic Acidosis +Troponins likely Demand Ischemia Atrial Fibrillation COPD HTN Parkinsons Disease - antibiotics per ID - continue IVF - monitor urine output, creatinine - rate control - continue anticoagulation - enteral feeds - DVT/GI prophylaxis - continue discussions regarding goals of care - continue ICU monitoring critical care time spent in reviewing chart, evaluating patient and formulating plan 35 min
--- NOTE | 2018-11-13 12:11 | PN ---
Progress Note, Physician History of Present Illness: AWAKE ON VENTILATOR BREATHING NON LABORED AFEBRILE WBC IMPROVED BC (-) - Current Medication List Current Medications: Active Medications Albuterol/Ipratropium (Duoneb -) 1 amp NEB RQID [facility] Last Admin: 11/13/18 08:48 Dose: 1 amp Amantadine HCl (Symmetrel Oral Solution -) 100 mg GT BID [facility] Last Admin: 11/13/18 10:14 Dose: 100 mg Amiodarone HCl (Cordarone -) 200 mg GT DAILY [facility] Last Admin: 11/13/18 10:09 Dose: 200 mg Apixaban (Eliquis -) 2.5 mg GT BID [facility] Last Admin: 11/13/18 10:09 Dose: 2.5 mg Carbidopa/Levodopa (Sinemet 25/250 -) 2 each GT TID [facility] Last Admin: 11/13/18 06:00 Dose: 2 each Chlorhexidine Gluconate (Hibiclens For Decolonization -) 1 applic TP HS [facility] Last Admin: 11/12/18 21:48 Dose: 1 applic Collagenase (Santyl -) 1 applic TP DAILY [facility]; Protocol Last Admin: 11/13/18 10:13 Dose: 1 applic Homatropine HBr (Isopto Homatropine 5% -) 1 drop OD QID [facility] Last Admin: 11/13/18 10:12 Dose: 1 drop Ceftazidime/Avibactam 1.25 gm/ (Dextrose) 100 mls @ 50 mls/hr IVPB Q8H-IV [facility]; Protocol Last Admin: 11/13/18 02:00 Dose: 50 mls/hr Metronidazole (Flagyl 500mg Premixed Ivpb -) 500 mg in 100 mls @ 100 mls/hr IVPB Q8H-IV [facility] Last Admin: 11/13/18 10:10 Dose: 100 mls/hr Sodium Chloride (Normal Saline -) 1,000 mls @ 50 mls/hr IV ASDIR [facility] Latanoprost (Xalatan 0.005% Eye Drops -) 1 drop OU HS [facility] Last Admin: 11/12/18 22:02 Dose: 1 drop Metoprolol Tartrate (Lopressor Injection -) 5 mg IVPUSH Q4H PRN PRN Reason: TACHYCARDIA Metoprolol Tartrate (Lopressor -) 75 mg GT BID [facility] Last Admin: 11/13/18 10:09 Dose: 75 mg Pantoprazole Sodium (Protonix Iv) 40 mg IVPUSH DAILY [facility] Last Admin: 11/13/18 10:09 Dose: 40 mg Polyethylene Glycol (Miralax (For Daily Use) -) 17 gm GT DAILY [facility] Last Admin: 11/13/18 10:42 Dose: 17 grams Tobramycin/Dexamethasone (Tobradex Ophthalmic Suspension -) 1 drop OU BID [facility] Last Admin: 11/13/18 10:14 Dose: 1 drop - Objective Vital Signs: Vital Signs Temperature 98.1 F 11/13/18 05:31 Pulse Rate 109 H 11/13/18 08:40 Respiratory Rate 35 H 11/13/18 08:57 Blood Pressure 111/64 11/13/18 08:00 O2 Sat by Pulse Oximetry (%) 100 11/13/18 08:57 Constitutional: Yes: No Distress Cardiovascular: Yes: Regular Rate and Rhythm, Tachycardia, S1, S2 Respiratory: Yes: Mechanically Ventilated Gastrointestinal: Yes: Normal Bowel Sounds, Soft. No: Tenderness Edema: Yes Edema: LUE: 2+, RUE: 2+, LLE: 2+, RLE: 2+ Labs: CBC, BMP 11/13/18 05:20 11/13/18 05:20 INR, PTT INR 2.87 (0.83-1.09) H 11/13/18 05:20 Assessment/Plan SEPSIS PNEUMONIA CHRONIC RESP FAILURE LEUKOCYTOSIS RESOLVED CONTINUE AVYCAZ/ FLAGYL VENTILATORY SUPPORT
[2018-11-13] MEDS: SODIUM CHLORIDE 1,000 ML IV SCH (12:35)
--- NOTE | 2018-11-13 14:18 | PN ---
Teaching Attending Note Name of Resident: León Serrato ATTENDING PHYSICIAN STATEMENT I saw and evaluated the patient. I reviewed the resident's note and discussed the case with the resident. I agree with the resident's findings and plan as documented. SUBJECTIVE: Non-verbal due to Trach/Vent. OBJECTIVE: Afebrile, Mild tachycardia/tacypnea Last Vital Signs Temp Pulse Resp BP Pulse Ox 98.1 F 109 H 28 H 111/64 100 11/13/18 05:31 11/13/18 08:40 11/13/18 12:42 11/13/18 08:00 11/13/18 08:57 HEENT - Atraumatic, Normocephalic. s/p Trach/Vent Heart - S1, S2, Irregular. Lungs - good air entry bilaterally - some wheeze Abdomen - PEG in situ. Soft. Bowel Sounds normal. Extremities - Edema +. No calf tenderness. Laboratory Results - last 24 hr 11/10/18 11/11/18 11/11/18 16:45 11:20 11:20 WBC RBC Hgb Hct MCV MCH MCHC RDW Plt Count MPV PT with INR INR PTT (Actin FS) Sodium Potassium Chloride Carbon Dioxide Anion Gap BUN Creatinine Est GFR (CKD-EPI)AfAm Est GFR (CKD-EPI)NonAf Random Glucose Calcium Phosphorus Magnesium Total Bilirubin Direct Bilirubin AST ALT Alkaline Phosphatase Total Protein Total Protein (PEP) 4.9 L Albumin Albumin (PEP) 2.2 L Globulin 2.7 Albumin/Globulin Ratio 0.8 Beta Globulins 0.7 Urine Eosinophils None seen JENNIFER M-Aleksandr Not observed FACUNDO Screen Negative Hep A IgM Ab Confirm Negative Hepatitis A Ab Total Positive H Hep Bs Antigen Negative Hep Bs Antibody Non reactive Hep B Core Total Ab Negative Hep B Core IgM Ab Negative Hepatitis Be Antibody Negative Hepatitis Be Antigen Negative 11/13/18 11/13/18 11/13/18 05:20 05:20 05:20 WBC 8.8 RBC 2.79 L Hgb 8.1 L Hct 25.0 L MCV 89.9 MCH 29.2 MCHC 32.5 RDW 22.7 H Plt Count 105 L MPV 8.2 PT with INR INR PTT (Actin FS) 46.6 H Sodium 142 Potassium 3.4 L Chloride 108 H Carbon Dioxide 20 L Anion Gap 14 BUN 91.8 H Creatinine 4.1 H Est GFR (CKD-EPI)AfAm 14.08 Est GFR (CKD-EPI)NonAf 12.15 Random Glucose 137 H Calcium 7.5 L Phosphorus 4.4 Magnesium 2.3 Total Bilirubin 1.4 H Direct Bilirubin AST 33 ALT 36 Alkaline Phosphatase 159 H Total Protein 4.6 L Total Protein (PEP) Albumin 1.3 L Albumin (PEP) Globulin Albumin/Globulin Ratio Beta Globulins Urine Eosinophils JENNIFER M-Aleksandr FACUNDO Screen Hep A IgM Ab Confirm Hepatitis A Ab Total Hep Bs Antigen Hep Bs Antibody Hep B Core Total Ab Hep B Core IgM Ab Hepatitis Be Antibody Hepatitis Be Antigen 11/13/18 11/13/18 05:20 05:20 WBC RBC Hgb Hct MCV MCH MCHC RDW Plt Count MPV PT with INR 34.20 H INR 2.87 H PTT (Actin FS) Sodium Potassium Chloride Carbon Dioxide Anion Gap BUN Creatinine Est GFR (CKD-EPI)AfAm Est GFR (CKD-EPI)NonAf Random Glucose Calcium Phosphorus Magnesium Total Bilirubin 1.4 H Direct Bilirubin 0.9 H AST 31 ALT 38 Alkaline Phosphatase 157 H Total Protein 4.6 L Total Protein (PEP) Albumin 1.3 L Albumin (PEP) Globulin Albumin/Globulin Ratio Beta Globulins Urine Eosinophils JENNIFER M-Aleksandr FACUNDO Screen Hep A IgM Ab Confirm Hepatitis A Ab Total Hep Bs Antigen Hep Bs Antibody Hep B Core Total Ab Hep B Core IgM Ab Hepatitis Be Antibody Hepatitis Be Antigen Current Medications Generic Name Dose Route Start Last Admin Trade Name Freq PRN Reason Stop Dose Admin Albuterol/Ipratropium 1 amp 11/06/18 08:00 11/13/18 12:37 Duoneb - NEB 1 amp RQID [facility] Administration Amantadine HCl 100 mg 11/06/18 10:00 11/13/18 10:14 Symmetrel Oral Solution - GT 100 mg BID [facility] Administration Amiodarone HCl 200 mg 11/11/18 18:30 11/13/18 10:09 Cordarone - GT 200 mg DAILY [facility] Administration Apixaban 2.5 mg 11/11/18 22:00 11/13/18 10:09 Eliquis - GT 2.5 mg BID [facility] Administration Carbidopa/Levodopa 2 each 11/05/18 22:45 11/13/18 06:00 Sinemet 25/250 - GT 2 each TID [facility] Administration Chlorhexidine Gluconate 1 applic 11/05/18 22:00 11/12/18 21:48 Hibiclens For Decolonization - TP 1 applic HS [facility] Administration Collagenase 1 applic 11/06/18 12:30 11/13/18 10:13 Santyl - TP 1 applic DAILY [facility] Administration Protocol Homatropine HBr 1 drop 11/06/18 10:00 11/13/18 10:12 Isopto Homatropine 5% - OD 1 drop QID [facility] Administration Ceftazidime/Avibactam 1.25 gm/ 100 mls @ 50 mls/hr 11/08/18 15:15 11/13/18 12 :37 Dextrose IVPB 50 mls/hr Q8H-IV [facility] Administration Protocol Metronidazole 500 mg in 100 mls @ 100 mls/hr 11/08/18 15:15 11/13/18 10:10 Flagyl 500mg Premixed Ivpb - IVPB 100 mls/hr Q8H-IV [facility] Administration Sodium Chloride 1,000 mls @ 50 mls/hr 11/13/18 11:00 11/13/18 12:35 Normal Saline - IV 50 mls/hr ASDIR [facility] Administration Latanoprost 1 drop 11/06/18 22:00 11/12/18 22:02 Xalatan 0.005% Eye Drops - OU 1 drop HS [facility] Administration Metoprolol Tartrate 5 mg 11/06/18 13:04 Lopressor Injection - IVPUSH Q4H PRN TACHYCARDIA Metoprolol Tartrate 75 mg 11/12/18 22:00 11/13/18 10:09 Lopressor - GT 75 mg BID [facility] Administration Pantoprazole Sodium 40 mg 11/06/18 10:45 11/13/18 10:09 Protonix Iv IVPUSH 40 mg DAILY [facility] Administration Polyethylene Glycol 17 gm 11/12/18 17:00 11/13/18 10:42 Miralax (For Daily Use) - GT 17 grams DAILY [facility] Administration Tobramycin/Dexamethasone 1 drop 11/06/18 10:00 11/13/18 10:14 Tobradex Ophthalmic Suspension - OU 1 drop BID [facility] Administration Home Medications Medication Instructions Recorded Acetaminophen [Tylenol] 650 mg GT QID PRN 11/05/18 Albuterol 2.5/Ipratropium 0.5 1 neb IH QID 11/05/18 [Duoneb -] Amantadine Oral Solution 100 mg GT BID 11/05/18 [Symmetrel Oral Solution -] Amiodarone HCl [Cordarone -] 200 mg GT DAILY 11/05/18 Apixaban [Eliquis -] 5 mg GT BID 11/05/18 Ascorbic Acid 500 mg GT DAILY 11/05/18 Carbidopa/Levodopa 25/250 [Sinemet 2 each PO TID 11/05/18 25/250 -] Docusate Liquid [Colace Liquid -] 100 mg GT DAILY 11/05/18 Famotidine 20 mg GT DAILY 11/05/18 Furosemide [Lasix -] 40 mg GT DAILY 11/05/18 Homatropine HBr 5% Ophth Soln 1 drop OD QID 11/05/18 [Isopto Homatropine] Latanoprost 0.005% Eye Drops 1 drop OU HS 11/05/18 [Xalatan 0.005% Eye Drops -] Metoprolol Tartrate [Lopressor -] 50 mg GT BID 11/05/18 Multivitamin [Multiple Vitamins] 15 ml GT DAILY 11/05/18 Polyethylene Glycol 3350 [Miralax 17 gm GT DAILY 11/05/18 (For Bowel Prep) -] Tobramycin/Dexamethasone [Tobradex 1 drop OU BID 11/05/18 Eye Drops] Zinc Sulfate [Zinc-220] 220 mg GT DAILY 11/05/18 ASSESSMENT AND PLAN: 88 year old male with Parkinson's Disease, COPD, HTN, Atrial Fibrillation, CRF s /p Trach/PEG, presented with fevers/chills, abdominal pain/distension, found to have SBO and sepsis secondary to Pneumonia. 1. Acute on Chronic Respiratory Failure and Severe Sepsis secondary to Pneumonia - improving. s/p Trach, Vent dependent Sputum Cx positive for Pseudomonas, Klebsiella ESBL, Proteus ESBL Continue Ceftazidime/Avibactam, Flagyl Afebrile, Hemodynamically Stable. Leukocytosis resolved. ID following. 2. Dilated CBD/Elevated LFTs - possibly sec to sepsis/shock liver - LFTs improving - further management as per GI. Afebrile, Hemodynamically Stable. 3. Atrial fibrillation with RVR - resumed on Metoprolol (at increased dose of 75mg BID) and Amiodarone. Transitioned from Heparin drip to Eliquis. 4. [place] sec to Sepsis versus contrast induced nephropathy. IV hydration. No obstruction on imaging. Nephrology following. 5. Elevated troponin - sec to demand due to sepsis. TnI max 0.07. No further work-up currently. Can follow with cardiology as out-patient. 6. Parkinson's Disease - Continue Sinemet/Amantadine. 7. HTN - Hypotension resolved. Resumed on Metoprolol. 8. Dysphagia s/p PEG - SBO resolved. PEG feeds resumed, no residual. NG tube removed. 9. Thrombocytopenia - will monitor. Off Heparin, now on Eliquis. 10. Elevated INR - INR 2.87 ?multifactorial due to sepsis, poor hepatic synthetic function, with addition of Eliquis likely contributing in the setting of [place]. Will hold Eliquis and recheck INR in AM. DVT Px - on Eliquis GI Px - PPI.
--- NOTE | 2018-11-13 15:17 | PN ---
Progress Note (short form) - Note Progress Note: covering dr quijano Problems 1. [place] 2. sepsis 3. PNA 4. SBO 5. Parkinson's 6. a-fib 7. chronic resp failure 8. severe sepsis 9. lactic acidosis 10. copd 11. hx of htn Current Medications Albuterol/Ipratropium (Duoneb -) 1 amp NEB RQID [facility] Last Admin: 11/13/18 12:37 Dose: 1 amp Amantadine HCl (Symmetrel Oral Solution -) 100 mg GT BID [facility] Last Admin: 11/13/18 10:14 Dose: 100 mg Amiodarone HCl (Cordarone -) 200 mg GT DAILY [facility] Last Admin: 11/13/18 10:09 Dose: 200 mg Apixaban (Eliquis -) 2.5 mg GT BID [facility] Last Admin: 11/13/18 10:09 Dose: 2.5 mg Carbidopa/Levodopa (Sinemet 25/250 -) 2 each GT TID [facility] Last Admin: 11/13/18 14:41 Dose: 2 each Chlorhexidine Gluconate (Hibiclens For Decolonization -) 1 applic TP HS [facility] Last Admin: 11/12/18 21:48 Dose: 1 applic Collagenase (Santyl -) 1 applic TP DAILY [facility]; Protocol Last Admin: 11/13/18 10:13 Dose: 1 applic Homatropine HBr (Isopto Homatropine 5% -) 1 drop OD QID [facility] Last Admin: 11/13/18 14:41 Dose: 1 drop Ceftazidime/Avibactam 1.25 gm/ (Dextrose) 100 mls @ 50 mls/hr IVPB Q8H-IV [facility]; Protocol Last Admin: 11/13/18 12:37 Dose: 50 mls/hr Metronidazole (Flagyl 500mg Premixed Ivpb -) 500 mg in 100 mls @ 100 mls/hr IVPB Q8H-IV [facility] Last Admin: 11/13/18 10:10 Dose: 100 mls/hr Sodium Chloride (Normal Saline -) 1,000 mls @ 50 mls/hr IV ASDIR [facility] Last Admin: 11/13/18 12:35 Dose: 50 mls/hr Latanoprost (Xalatan 0.005% Eye Drops -) 1 drop OU HS [facility] Last Admin: 11/12/18 22:02 Dose: 1 drop Metoprolol Tartrate (Lopressor Injection -) 5 mg IVPUSH Q4H PRN PRN Reason: TACHYCARDIA Metoprolol Tartrate (Lopressor -) 75 mg GT BID [facility] Last Admin: 11/13/18 10:09 Dose: 75 mg Pantoprazole Sodium (Protonix Iv) 40 mg IVPUSH DAILY [facility] Last Admin: 11/13/18 10:09 Dose: 40 mg Polyethylene Glycol (Miralax (For Daily Use) -) 17 gm GT DAILY [facility] Last Admin: 11/13/18 10:42 Dose: 17 grams Tobramycin/Dexamethasone (Tobradex Ophthalmic Suspension -) 1 drop OU BID [facility] Last Admin: 11/13/18 10:14 Dose: 1 drop Last Vital Signs Temp Pulse Resp BP Pulse Ox 98.1 F 109 H 28 H 111/64 100 11/13/18 05:31 11/13/18 08:40 11/13/18 12:42 11/13/18 08:00 11/13/18 08:57 eyes open, doesnot attend vs noted heent trache on vent Lungs clear anteriorly Heart s1s2 tachy Abd soft tube fed Ext no edema lower ext edema lue CBC, BMP 11/13/18 05:20 11/13/18 05:20 IMP- renal function getting worse non oliguric Unlikely AIN- urine eosinophils neg afebrile Multifactorial Plan- we may have to consider [employer] for worsening kidney function Need to discuss with HCP if that is an option for his goals of care - continue to follow renal function - monitoring urine output - urine eos pending - cont supportive care
[2018-11-13] MEDS: CHLORHEXIDINE GLUCONATE 4% CLEANSER FOR DECOLONIZATION TP SCH (22:00)
[2018-11-13] MEDS: LATANOPROST 0.005% OPHTH SOLN 2.5ML BOTTLE OU SCH (22:01)
[2018-11-14] MEDS: AMANTADINE HCL 100MG/10 ML UNIT DOSE CUPS GT SCH ×3 (02:07→21:39)
[2018-11-14] MEDS: CEFTAZIDIME/AVIBACTAM 1.25 GM in DEXTROSE 5%-WATER - 100 ML IVPB SCH ×3 (02:07→17:30)
[2018-11-14] MEDS: CARBIDOPA/LEVODOPA 25/250 TABLET (FP) GT SCH ×3 (05:25→21:38)
[2018-11-14 06:50] LABS: HEMATOCRIT 24.4 % (35.4-49); MCHC 32.6 g/dl (32.0-35.9); MEAN CELL VOLUME 88.9 fl (80-96); MEAN PLT VOLUME 8.1 fl (7.5-11.1); PLATELET COUNT 87 K/MM3 (134-434); RBC 2.74 M/mm3 (4.00-5.60); WHITE BLOOD COUNT 11.3 K/mm3 (4.0-10.0)
[2018-11-14 06:54] LABS: ALBUMIN 1.3 g/dl (3.4-5.0); BILIRUBIN,TOTAL 1.2 mg/dL (0.2-1); BLOOD UREA NITROGEN 95.3 mg/dL (7-18); CALCIUM 7.5 mg/dL (8.5-10.1); CREATININE 4.2 mg/dL (0.55-1.3); MAGNESIUM 2.2 mg/dL (1.8-2.4); PHOSPHOROUS 4.2 mg/dL (2.5-4.9); POTASSIUM 3.7 mmol/L (3.5-5.1); TOT PROT 4.8 g/dl (6.4-8.2)
[2018-11-14 07:07] LABS: INR 2.58 (0.83-1.09); PROTHROMBIN TIME (PATIENT) 30.7 SEC (9.7-13.0)
--- NOTE | 2018-11-14 07:12 | PN ---
Physical Exam: SUBJECTIVE: Patient seen and examined at bedside this AM. No acute events overnight. OBJECTIVE: Vital Signs Period Temp Pulse Resp BP Sys/Cope Pulse Ox Last 24 Hr 97.6 F-98.2 F 84-113 22-36 97-120/55-69 98-100 GENERAL: Pt is on a vent, awake. HEAD: Normal with no signs of trauma. NC/AT. NECK: trach tube in place no secretions, supple. LUNGS: Breath sounds reduced especially at the bases. HEART: Regular rate and rhythm, S1, S2 without murmur, rub or gallop. ABDOMEN: Soft, nontender, nondistended, no guarding, no rebound. EXTREMITIES: 2+ pulses, warm, well-perfused SKIN: Warm, dry, no rashes or lesions noted Laboratory Results - last 24 hr 11/13/18 11/14/18 11/14/18 22:36 05:40 05:40 WBC 11.3 H RBC 2.74 L Hgb 8.0 L Hct 24.4 L MCV 88.9 MCH 29.0 MCHC 32.6 RDW 23.0 H Plt Count 87 L MPV 8.1 PT with INR INR Sodium 141 Potassium 3.7 Chloride 108 H Carbon Dioxide 19 L Anion Gap 14 BUN 95.3 H Creatinine 4.2 H Est GFR (CKD-EPI)AfAm 13.68 Est GFR (CKD-EPI)NonAf 11.80 POC Glucometer 122 Random Glucose 124 H Calcium 7.5 L Phosphorus 4.2 Magnesium 2.2 Total Bilirubin 1.2 H AST 16 ALT 20 Alkaline Phosphatase 151 H Total Protein 4.8 L Albumin 1.3 L 11/14/18 05:40 WBC RBC Hgb Hct MCV MCH MCHC RDW Plt Count MPV PT with INR 30.70 H INR 2.58 H Sodium Potassium Chloride Carbon Dioxide Anion Gap BUN Creatinine Est GFR (CKD-EPI)AfAm Est GFR (CKD-EPI)NonAf POC Glucometer Random Glucose Calcium Phosphorus Magnesium Total Bilirubin AST ALT Alkaline Phosphatase Total Protein Albumin Active Medications Generic Name Dose Route Start Last Admin Trade Name Freq PRN Reason Stop Dose Admin Albuterol/Ipratropium 1 amp 11/06/18 08:00 11/13/18 20:30 Duoneb - NEB 1 amp RQID [facility] Administration Amantadine HCl 100 mg 11/06/18 10:00 11/14/18 02:07 Symmetrel Oral Solution - GT 100 mg BID [facility] Administration Amiodarone HCl 200 mg 11/11/18 18:30 11/13/18 10:09 Cordarone - GT 200 mg DAILY [facility] Administration Apixaban 2.5 mg 11/11/18 22:00 11/13/18 10:09 Eliquis - GT 2.5 mg BID [facility] Administration Carbidopa/Levodopa 2 each 11/05/18 22:45 11/14/18 05:25 Sinemet 25/250 - GT 2 each TID [facility] Administration Chlorhexidine Gluconate 1 applic 11/05/18 22:00 11/13/18 22:00 Hibiclens For Decolonization - TP 1 applic HS [facility] Administration Collagenase 1 applic 11/06/18 12:30 11/13/18 10:13 Santyl - TP 1 applic DAILY [facility] Administration Protocol Homatropine HBr 1 drop 11/06/18 10:00 11/13/18 22:01 Isopto Homatropine 5% - OD 1 drop QID [facility] Administration Ceftazidime/Avibactam 1.25 gm/ 100 mls @ 50 mls/hr 11/08/18 15:15 11/14/18 02 :07 Dextrose IVPB 50 mls/hr Q8H-IV [facility] Administration Protocol Metronidazole 500 mg in 100 mls @ 100 mls/hr 11/08/18 15:15 11/14/18 02:07 Flagyl 500mg Premixed Ivpb - IVPB 100 mls/hr Q8H-IV [facility] Administration Sodium Chloride 1,000 mls @ 50 mls/hr 11/13/18 11:00 11/13/18 12:35 Normal Saline - IV 50 mls/hr ASDIR [facility] Administration Latanoprost 1 drop 11/06/18 22:00 11/13/18 22:01 Xalatan 0.005% Eye Drops - OU 1 drop HS [facility] Administration Metoprolol Tartrate 5 mg 11/06/18 13:04 Lopressor Injection - IVPUSH Q4H PRN TACHYCARDIA Metoprolol Tartrate 75 mg 11/12/18 22:00 11/13/18 21:59 Lopressor - GT 75 mg BID [facility] Administration Pantoprazole Sodium 40 mg 11/06/18 10:45 11/13/18 10:09 Protonix Iv IVPUSH 40 mg DAILY [facility] Administration Polyethylene Glycol 17 gm 11/12/18 17:00 11/13/18 10:42 Miralax (For Daily Use) - GT 17 grams DAILY [facility] Administration Tobramycin/Dexamethasone 1 drop 11/06/18 10:00 11/13/18 22:01 Tobradex Ophthalmic Suspension - OU 1 drop BID [facility] Administration ASSESSMENT/PLAN: This is an 88 y/o M w/ PMH Parkinson's, COPD, HTN, CHF, Afib, respiratory failure ( trached to vent). Pt has PEG. Pt presented to the ED for abdominal distention. Pt is admitted for Severe Sepsis 2/2 Pneumonia and possible SBO. Neuro-> Parkinson's disease -c/w sinemet 25/250 -pain mgmt w/ dilaudid 0.5 mg Cardiology-> Atrial Fibrillation, HTN, Diastolic HF -Amiodarone 200 mg GT Daily for rate control -D50-NS DC'ed as pt now resuming feeds. -[facility] -Echo EF 65-70 %, LV fxn normal, mild , moderate AR , TR Respiratory-> ARDS, Sepsis 2/2 Pneumonia -Trached to vent -CXR slightly increased congestion and infiltration but rpt cxr ordered today result pending. -sputum culture growing Klebsiella pneumoniae, Pseudomonas Aerginosa, Proteus. Sensitivities reviewed RENAL-> FRNACE - worsening Cr 4.2 today. - monitor urine output. - Per renal, HD is necessary - Urine eosinophils negative. GI-> SBO, resolved - mild nonspecific CBD dilation -s/p NGT decompression -GI on board--> Follow-up infectious hepatitis serologies -transaminitis improved INFECTIOUS DISEASE->Sepsis likely 2/2 pneumonia -lactate downtrending 10.8-->3.8 -leukocytosis slightly increased at 11 today. -ID on board appreciate recs -flagyl as per ID recs day 7 -c/w Ceftazidime/Avibactam day 7 FEN -D50-NS @ 50mls -continue to monitor electrolytes and replete as necessary -tube feeds resumed. DVT - SCDs CODE - DNR -Case discussed with family. Family wants all interventions, but keep DNR. Consent signed for central line if needed. Photo Mask Inspector and Rev Juanito as well as Floor security intern had detailed conversation with family at bedside. -Palliative Care DISPO: [email or web address] to med surg. Visit type - Emergency Visit Emergency Visit: Yes ED Registration Date: 11/05/18 Care time: The patient presented to the Emergency Department on the above date and was hospitalized for further evaluation of their emergent condition. - New Patient This patient is new to me today: No - Critical Care Critical Care patient: Yes Total Critical Care Time (in minutes): 40 Critical Care Statement: The care of this patient involved high complexity decision making to prevent further life threatening deterioration of the patient 's condition and/or to evaluate & treat vital organ system(s) failure or risk of failure. - Discharge Referral Referred to [facility] Med P.C.: No
[2018-11-14] MEDS: ALBUTEROL SO4 2.5/IPRATROPIUM 0.5 INH SOL 3 ML VIAL.NEB. NEB SCH ×4 (08:30→20:30)
[2018-11-14] MEDS: AMIODARONE HCL 200 MG TABLET (FP) GT SCH (09:26)
[2018-11-14] MEDS: METOPROLOL TARTRATE 50 MG TABLET (FP) GT SCH ×2 (09:26→21:38)
[2018-11-14] MEDS: PANTOPRAZOLE SODIUM 40 MG VIAL IVPUSH SCH (09:26)
[2018-11-14] MEDS: TOBRA 0.3%/DEXAMETH 0.1% OPHTHALMIC SUSP 2.5 ML BTL OU SCH ×2 (09:28→21:42)
[2018-11-14] MEDS: COLLAGENASE CLOSTRIDIUM HIST. 30 GRAMS TUBE TP SCH (09:29)
[2018-11-14] MEDS: POLYETHYLENE GLYCOL 3350 119 GM BTL GT SCH (09:29)
[2018-11-14] MEDS: [UNRECOGNIZED DRUG - OTHER] OD SCH ×4 (09:29→21:42)
--- NOTE | 2018-11-14 10:24 | PN ---
Teaching Attending Note Name of Resident: Juanito Arceo ATTENDING PHYSICIAN STATEMENT I saw and evaluated the patient. I reviewed the resident's note and discussed the case with the resident. I agree with the resident's findings and plan as documented. SUBJECTIVE: Pt seen and examined in the ICU. Vented on volume assist control. Heart rates better controlled. OBJECTIVE: Vital Signs Period Temp Pulse Resp BP Sys/Cope Pulse Ox Last 24 Hr 97.6 F-98.2 F 84-106 22-36 97-120/55-73 98-100 Intake & Output 11/11/18 11/12/18 11/13/18 11/14/18 23:59 23:59 23:59 23:59 Intake Total 1581 3640 3500 650 Output Total 300 1100 900 100 Balance 1281 2540 2600 550 Weight 88.3 kg 88.949 kg 89.857 kg 92.2 kg Gen: vented, awake Heart: RRR Lung: decreased breath sounds at the bases Abd: soft, nontender Ext: no edema CBC, BMP 11/14/18 05:40 11/14/18 05:40 Active Medications Albuterol/Ipratropium (Duoneb -) 1 amp NEB RQID [facility] Last Admin: 11/14/18 08:30 Dose: 1 amp Amantadine HCl (Symmetrel Oral Solution -) 100 mg GT BID [facility] Last Admin: 11/14/18 09:29 Dose: 100 mg Amiodarone HCl (Cordarone -) 200 mg GT DAILY [facility] Last Admin: 11/14/18 09:26 Dose: 200 mg Apixaban (Eliquis -) 2.5 mg GT BID [facility] Last Admin: 11/13/18 10:09 Dose: 2.5 mg Carbidopa/Levodopa (Sinemet 25/250 -) 2 each GT TID [facility] Last Admin: 11/14/18 05:25 Dose: 2 each Chlorhexidine Gluconate (Hibiclens For Decolonization -) 1 applic TP HS [facility] Last Admin: 11/13/18 22:00 Dose: 1 applic Collagenase (Santyl -) 1 applic TP DAILY [facility]; Protocol Last Admin: 11/14/18 09:29 Dose: 1 applic Homatropine HBr (Isopto Homatropine 5% -) 1 drop OD QID [facility] Last Admin: 11/14/18 09:29 Dose: 1 drop Ceftazidime/Avibactam 1.25 gm/ (Dextrose) 100 mls @ 50 mls/hr IVPB Q8H-IV [facility]; Protocol Last Admin: 11/14/18 09:26 Dose: 50 mls/hr Metronidazole (Flagyl 500mg Premixed Ivpb -) 500 mg in 100 mls @ 100 mls/hr IVPB Q8H-IV [facility] Last Admin: 11/14/18 09:26 Dose: 100 mls/hr Sodium Chloride (Normal Saline -) 1,000 mls @ 50 mls/hr IV ASDIR [facility] Last Admin: 11/13/18 12:35 Dose: 50 mls/hr Latanoprost (Xalatan 0.005% Eye Drops -) 1 drop OU HS [facility] Last Admin: 11/13/18 22:01 Dose: 1 drop Metoprolol Tartrate (Lopressor Injection -) 5 mg IVPUSH Q4H PRN PRN Reason: TACHYCARDIA Metoprolol Tartrate (Lopressor -) 75 mg GT BID [facility] Last Admin: 11/14/18 09:26 Dose: 75 mg Pantoprazole Sodium (Protonix Iv) 40 mg IVPUSH DAILY [facility] Last Admin: 11/14/18 09:26 Dose: 40 mg Polyethylene Glycol (Miralax (For Daily Use) -) 17 gm GT DAILY [facility] Last Admin: 11/14/18 09:29 Dose: Not Given Tobramycin/Dexamethasone (Tobradex Ophthalmic Suspension -) 1 drop OU BID [facility] Last Admin: 11/14/18 09:28 Dose: 1 drop ASSESSMENT AND PLAN: Chronic Respiratory Failure Pneumonia Severe Sepsis Acute Kidney Injury Lactic Acidosis +Troponins likely Demand Ischemia Atrial Fibrillation COPD HTN Parkinsons Disease - antibiotics per ID - continue IVF - monitor urine output, creatinine - rate control - continue anticoagulation - enteral feeds - DVT/GI prophylaxis - continue discussions regarding goals of care - can monitor on vent floor
--- NOTE | 2018-11-14 13:46 | PN ---
Progress Note (short form) - Note Progress Note: covering dr quijano Problems 1. [place] 2. sepsis 3. PNA 4. SBO 5. Parkinson's 6. a-fib 7. chronic resp failure 8. severe sepsis 9. lactic acidosis 10. copd 11. hx of htn Current Medications Albuterol/Ipratropium (Duoneb -) 1 amp NEB RQID [facility] Last Admin: 11/14/18 08:30 Dose: 1 amp Amantadine HCl (Symmetrel Oral Solution -) 100 mg GT BID [facility] Last Admin: 11/14/18 09:29 Dose: 100 mg Amiodarone HCl (Cordarone -) 200 mg GT DAILY [facility] Last Admin: 11/14/18 09:26 Dose: 200 mg Apixaban (Eliquis -) 2.5 mg GT BID [facility] Last Admin: 11/13/18 10:09 Dose: 2.5 mg Carbidopa/Levodopa (Sinemet 25/250 -) 2 each GT TID [facility] Last Admin: 11/14/18 05:25 Dose: 2 each Chlorhexidine Gluconate (Hibiclens For Decolonization -) 1 applic TP HS [facility] Last Admin: 11/13/18 22:00 Dose: 1 applic Collagenase (Santyl -) 1 applic TP DAILY [facility]; Protocol Last Admin: 11/14/18 09:29 Dose: 1 applic Homatropine HBr (Isopto Homatropine 5% -) 1 drop OD QID [facility] Last Admin: 11/14/18 09:29 Dose: 1 drop Ceftazidime/Avibactam 1.25 gm/ (Dextrose) 100 mls @ 50 mls/hr IVPB Q8H-IV [facility]; Protocol Last Admin: 11/14/18 09:26 Dose: 50 mls/hr Metronidazole (Flagyl 500mg Premixed Ivpb -) 500 mg in 100 mls @ 100 mls/hr IVPB Q8H-IV [facility] Last Admin: 11/14/18 09:26 Dose: 100 mls/hr Sodium Chloride (Normal Saline -) 1,000 mls @ 50 mls/hr IV ASDIR [facility] Last Admin: 11/13/18 12:35 Dose: 50 mls/hr Latanoprost (Xalatan 0.005% Eye Drops -) 1 drop OU HS [facility] Last Admin: 11/13/18 22:01 Dose: 1 drop Metoprolol Tartrate (Lopressor Injection -) 5 mg IVPUSH Q4H PRN PRN Reason: TACHYCARDIA Metoprolol Tartrate (Lopressor -) 75 mg GT BID [facility] Last Admin: 11/14/18 09:26 Dose: 75 mg Pantoprazole Sodium (Protonix Iv) 40 mg IVPUSH DAILY [facility] Last Admin: 11/14/18 09:26 Dose: 40 mg Tobramycin/Dexamethasone (Tobradex Ophthalmic Suspension -) 1 drop OU BID [facility] Last Admin: 11/14/18 09:28 Dose: 1 drop Last Vital Signs Temp Pulse Resp BP Pulse Ox 98 F 98 H 24 H 90/57 L 98 11/14/18 10:00 11/14/18 12:00 11/14/18 12:00 11/14/18 12:00 11/14/18 09:00 eyes open, does not attend vs noted heent trache on vent Lungs clear anteriorly Heart s1s2 tachy Abd soft tube fed Ext generalized edema CBC, BMP 11/14/18 05:40 11/14/18 05:40 CBC, BMP 11/13/18 05:20 11/13/18 05:20 IMP- renal function seems to be stabilizing urine output is good he has gained 10 lbs from 11/09 Metabolic acidosis is worsening hypokalemia resolving BP is lower today Plan- may benefit from diuretic doses when bp permits to control edema limit fluid and saline we may have to consider X RAY OPERATOR if worsens Need to discuss with HCP if that is an option for his goals of care - continue to follow renal function - monitoring urine output - urine eos pending - cont supportive care
[2018-11-14] MEDS: SODIUM CHLORIDE 1,000 ML IV SCH (13:50)
[2018-11-14] MEDS ORDERED: FUROSEMIDE 100 MG/10 ML INJECTABLE VIAL IVPB SCH ×2 (14:00→14:11)
--- NOTE | 2018-11-14 15:07 | PN ---
Progress Note (short form) - Note Progress Note: SUBJECTIVE: Non-verbal due to Trach/Vent. OBJECTIVE: Afebrile, Mild tachycardia/tachypnea. Borderline BP. Last Vital Signs Temp Pulse Resp BP Pulse Ox 98 F 98 H 24 H 90/57 L 98 11/14/18 10:00 11/14/18 12:00 11/14/18 12:00 11/14/18 12:00 11/14/18 09:00 HEENT - Atraumatic, Normocephalic. s/p Trach/Vent - FiO2 40%. Heart - S1, S2, Irregular. Lungs - good air entry bilaterally - few basal crackles. Abdomen - PEG in situ. Soft. Bowel Sounds normal. Extremities - Edema +. No calf tenderness. Laboratory Results - last 24 hr 11/13/18 11/14/18 11/14/18 22:36 05:40 05:40 WBC 11.3 H RBC 2.74 L Hgb 8.0 L Hct 24.4 L MCV 88.9 MCH 29.0 MCHC 32.6 RDW 23.0 H Plt Count 87 L MPV 8.1 PT with INR INR PTT (Actin FS) 49.6 H Sodium Potassium Chloride Carbon Dioxide Anion Gap BUN Creatinine Est GFR (CKD-EPI)AfAm Est GFR (CKD-EPI)NonAf POC Glucometer 122 Random Glucose Calcium Phosphorus Magnesium Total Bilirubin AST ALT Alkaline Phosphatase Total Protein Albumin 11/14/18 11/14/18 11/14/18 05:40 05:40 11:52 WBC RBC Hgb Hct MCV MCH MCHC RDW Plt Count MPV PT with INR 30.70 H INR 2.58 H PTT (Actin FS) Sodium 141 Potassium 3.7 Chloride 108 H Carbon Dioxide 19 L Anion Gap 14 BUN 95.3 H Creatinine 4.2 H Est GFR (CKD-EPI)AfAm 13.68 Est GFR (CKD-EPI)NonAf 11.80 POC Glucometer 98 Random Glucose 124 H Calcium 7.5 L Phosphorus 4.2 Magnesium 2.2 Total Bilirubin 1.2 H AST 16 ALT 20 Alkaline Phosphatase 151 H Total Protein 4.8 L Albumin 1.3 L Current Medications Generic Name Dose Route Start Last Admin Trade Name Freq PRN Reason Stop Dose Admin Albuterol/Ipratropium 1 amp 11/06/18 08:00 11/14/18 13:00 Duoneb - NEB 1 amp RQID [facility] Administration Amantadine HCl 100 mg 11/06/18 10:00 11/14/18 09:29 Symmetrel Oral Solution - GT 100 mg BID [facility] Administration Amiodarone HCl 200 mg 11/11/18 18:30 11/14/18 09:26 Cordarone - GT 200 mg DAILY [facility] Administration Apixaban 2.5 mg 11/11/18 22:00 11/13/18 10:09 Eliquis - GT 2.5 mg BID [facility] Administration Carbidopa/Levodopa 2 each 11/05/18 22:45 11/14/18 13:49 Sinemet 25/250 - GT 2 each TID [facility] Administration Chlorhexidine Gluconate 1 applic 11/05/18 22:00 11/13/18 22:00 Hibiclens For Decolonization - TP 1 applic HS [facility] Administration Collagenase 1 applic 11/06/18 12:30 11/14/18 09:29 Santyl - TP 1 applic DAILY [facility] Administration Protocol Furosemide 60 mg 11/14/18 14:11 Lasix Injection - IVPB 11/16/18 23:59 BID@0600,1400 [facility] Homatropine HBr 1 drop 11/06/18 10:00 11/14/18 13:49 Isopto Homatropine 5% - OD 1 drop QID [facility] Administration Ceftazidime/Avibactam 1.25 gm/ 100 mls @ 50 mls/hr 11/08/18 15:15 11/14/18 09 :26 Dextrose IVPB 50 mls/hr Q8H-IV [facility] Administration Protocol Metronidazole 500 mg in 100 mls @ 100 mls/hr 11/08/18 15:15 11/14/18 09:26 Flagyl 500mg Premixed Ivpb - IVPB 100 mls/hr Q8H-IV [facility] Administration Sodium Chloride 1,000 mls @ 50 mls/hr 11/13/18 11:00 11/14/18 13:50 Normal Saline - IV 50 mls/hr ASDIR [facility] Administration Latanoprost 1 drop 11/06/18 22:00 11/13/18 22:01 Xalatan 0.005% Eye Drops - OU 1 drop HS [facility] Administration Metoprolol Tartrate 5 mg 11/06/18 13:04 Lopressor Injection - IVPUSH Q4H PRN TACHYCARDIA Metoprolol Tartrate 75 mg 11/12/18 22:00 11/14/18 09:26 Lopressor - GT 75 mg BID [facility] Administration Pantoprazole Sodium 40 mg 11/06/18 10:45 11/14/18 09:26 Protonix Iv IVPUSH 40 mg DAILY [facility] Administration Tobramycin/Dexamethasone 1 drop 11/06/18 10:00 11/14/18 09:28 Tobradex Ophthalmic Suspension - OU 1 drop BID [facility] Administration Home Medications Medication Instructions Recorded Acetaminophen [Tylenol] 650 mg GT QID PRN 11/05/18 Albuterol 2.5/Ipratropium 0.5 1 neb IH QID 11/05/18 [Duoneb -] Amantadine Oral Solution 100 mg GT BID 11/05/18 [Symmetrel Oral Solution -] Amiodarone HCl [Cordarone -] 200 mg GT DAILY 11/05/18 Apixaban [Eliquis -] 5 mg GT BID 11/05/18 Ascorbic Acid 500 mg GT DAILY 11/05/18 Carbidopa/Levodopa 25/250 [Sinemet 2 each PO TID 11/05/18 25/250 -] Docusate Liquid [Colace Liquid -] 100 mg GT DAILY 11/05/18 Famotidine 20 mg GT DAILY 11/05/18 Furosemide [Lasix -] 40 mg GT DAILY 11/05/18 Homatropine HBr 5% Ophth Soln 1 drop OD QID 11/05/18 [Isopto Homatropine] Latanoprost 0.005% Eye Drops 1 drop OU HS 11/05/18 [Xalatan 0.005% Eye Drops -] Metoprolol Tartrate [Lopressor -] 50 mg GT BID 11/05/18 Multivitamin [Multiple Vitamins] 15 ml GT DAILY 11/05/18 Polyethylene Glycol 3350 [Miralax 17 gm GT DAILY 11/05/18 (For Bowel Prep) -] Tobramycin/Dexamethasone [Tobradex 1 drop OU BID 11/05/18 Eye Drops] Zinc Sulfate [Zinc-220] 220 mg GT DAILY 11/05/18 ASSESSMENT AND PLAN: 88 year old male with Parkinson's Disease, COPD, HTN, Atrial Fibrillation, CRF s /p Trach/PEG, presented with fevers/chills, abdominal pain/distension, found to have SBO and sepsis secondary to Pneumonia. 1. Acute on Chronic Respiratory Failure and Severe Sepsis secondary to Pneumonia s/p Trach, Vent dependent Sputum Cx positive for Pseudomonas, Klebsiella ESBL, Proteus ESBL Continue Ceftazidime/Avibactam, Flagyl Afebrile, Borderline BP. ID following. 2. Dilated CBD/Elevated LFTs - possibly sec to sepsis/shock liver - LFTs improving - further management as per GI. Afebrile, borderline BP. 3. Atrial fibrillation with RVR - resumed on Metoprolol (at increased dose of 75mg BID) and Amiodarone. Transitioned from Heparin drip to Eliquis (now held due to elevated INR and Thrombocytopenia). 4. [place] sec to Sepsis versus contrast induced nephropathy. No obstruction on imaging. Nephrology following - for possible lasix given anasarca. 5. Elevated troponin - sec to demand due to sepsis. TnI max 0.07. No further work-up currently. Can follow with cardiology as out-patient. 6. Parkinson's Disease - Continue Sinemet/Amantadine. 7. HTN - BP borderline. Resumed on Metoprolol. 8. Dysphagia s/p PEG - SBO resolved. PEG feeds resumed. 9. Thrombocytopenia - worsening. No bleeding. Will monitor. Off Heparin, Eliquis held. HIT Ab requested. Hematology consulted. 10. Elevated INR - INR 2.58 ?multifactorial due to sepsis, poor hepatic synthetic function, with addition of Eliquis likely contributing in the setting of [place]. Eliquis held. Hematology consulted. DVT Px - Eliquis held. GI Px - PPI. Visit type - Emergency Visit Emergency Visit: Yes ED Registration Date: 11/05/18 Care time: The patient presented to the Emergency Department on the above date and was hospitalized for further evaluation of their emergent condition. - New Patient This patient is new to me today: No - Critical Care Critical Care patient: Yes Total Critical Care Time (in minutes): 35 Critical Care Statement: The care of this patient involved high complexity decision making to prevent further life threatening deterioration of the patient 's condition and/or to evaluate & treat vital organ system(s) failure or risk of failure. - Discharge Referral Referred to [facility] No
--- NOTE | 2018-11-14 17:08 | CONSULT ---
Consult Consult Specialty:: Hematology Reason for Consultation:: Thrombocytopenia. Prolonged INR - History of Present Illness Chief Complaint: SBO. Sepsis. [place]. TCP.Prolonged INR. Pt non verbal History of Present Illness: 88 year old gentleman with pmhx of Parkinson Disease, COPD, CHF, HTN, A-Fib, Chronic Respiratory Failure s/p Tracheostomy/PEG, and remote prostate cancer who initially presented with worsening abdominal distention. He was recently in [facility] for sepsis secondary to UTI. On this admission he was found to have SBO, severe sepsis and PNA. Hematology consulted due to worsening Thrombocytopenia and Prolonged INR. Pt is non-verbal. 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: Parkinson's Cardio/Vascular: Yes: AFIB, HTN Pulmonary: Yes: COPD, Other (chronic resp failure) Gastrointestinal: Yes: Other (peg) Heme/Onc: Yes: Cancer (Prostate Cancer) - Past Surgical History Additional Surgical History: peg, trache - Alcohol/Substance Use Hx Alcohol Use: No - Smoking History Smoking history: Smoker current status UNK Have you smoked in the past 12 months: No Home Medications - Allergies Allergies/Adverse Reactions: Allergies Allergy/AdvReac Type Severity Reaction Status Date / Time No Known Allergies Allergy Verified 11/05/18 14:35 - Home Medications Home Medications: Ambulatory Orders Acetaminophen [Tylenol] 650 mg GT QID PRN 11/05/18 Albuterol 2.5/Ipratropium 0.5 [Duoneb -] 1 neb IH QID 11/05/18 Amantadine Oral Solution [Symmetrel Oral Solution -] 100 mg GT BID 11/05/18 Amiodarone HCl [Cordarone -] 200 mg GT DAILY 11/05/18 Apixaban [Eliquis -] 5 mg GT BID 11/05/18 Ascorbic Acid 500 mg GT DAILY 11/05/18 Carbidopa/Levodopa 25/250 [Sinemet 25/250 -] 2 each PO TID 11/05/18 Docusate Liquid [Colace Liquid -] 100 mg GT DAILY 11/05/18 Famotidine 20 mg GT DAILY 11/05/18 Furosemide [Lasix -] 40 mg GT DAILY 11/05/18 Homatropine HBr 5% Ophth Soln [Isopto Homatropine] 1 drop OD QID 11/05/18 Latanoprost 0.005% Eye Drops [Xalatan 0.005% Eye Drops -] 1 drop OU HS 11/05/18 Metoprolol Tartrate [Lopressor -] 50 mg GT BID 11/05/18 Multivitamin [Multiple Vitamins] 15 ml GT DAILY 11/05/18 Polyethylene Glycol 3350 [Miralax (For Bowel Prep) -] 17 gm GT DAILY 11/05/18 Tobramycin/Dexamethasone [Tobradex Eye Drops] 1 drop OU BID 11/05/18 Zinc Sulfate [Zinc-220] 220 mg GT DAILY 11/05/18 Review of Systems Unable to obtain ROS, reason: Pt non verbal Physical Exam Vital Signs: Vital Signs Temperature 98.4 F 11/14/18 16:00 Pulse Rate 85 11/14/18 16:00 Respiratory Rate 22 H 11/14/18 16:00 Blood Pressure 99/66 11/14/18 16:00 O2 Sat by Pulse Oximetry (%) 98 11/14/18 15:00 Constitutional: Yes: Well Nourished, No Distress Eyes: Yes: WNL, Conjunctiva Clear, EOM Intact HENT: Yes: WNL, Atraumatic, Normocephalic Neck: Yes: WNL, Supple, Trachea Midline, Other (Tracheostomy present) Respiratory: Yes: CTA Bilaterally Gastrointestinal: Yes: WNL, Soft, Distention ...Rectal Exam: Yes: Deferred Edema: LUE: 2+, RUE: 2+, LLE: 2+, RLE: 2+ Integumentary: Yes: Other (Bullae. Ecchymosis R Hand> L Hand) Neurological: No: WNL, Alert, Oriented, Aphasia, Asterixis, Ataxia, Babinski positive, Babinski negative, Confusion, Cran Nerves II-XII Intact, Dysarthria, Facial Droop, Lethargy, Loss of Sensation, Numbness, Paresthesia, Pre-Existing Deficit, Seizure, Tingling, Tremors, Unresponsive, Unsteady Gait, Weakness, Other Psychiatric: Yes: Other (Cannot be assessed) Labs: CBC, BMP 11/14/18 05:40 11/14/18 05:40 Problem List - Problems (1) Thrombocytopenia Code(s): D69.6 - THROMBOCYTOPENIA, UNSPECIFIED (2) Prolonged INR Code(s): R79.1 - ABNORMAL COAGULATION PROFILE (3) DIC (disseminated intravascular coagulation) Code(s): D65 - DISSEMINATED INTRAVASCULAR COAGULATION (4) DIC (disseminated intravascular coagulation) Code(s): D65 - DISSEMINATED INTRAVASCULAR COAGULATION Assessment/Plan 88 year old gentleman with Parkinson's Disease, COPD, HTN, Atrial Fibrillation , CRF s/p Trach/PEG, SBO and sepsis secondary to Pneumonia. Hematology consulted for thrombocytopenia and prolonged INR. Given severe sepsis with positive sputum cultures (Pseudomonas, Klebsiella ESBL and Proteus ESBL) but not blood cultures, disseminated intravascular coagulation (DIC) appears as the most likely cause, however alternative diagnosis should also be ruled out. PT 30.7, INR 2.58. PTT 46.6. Platelets 87,000 (above 200,000 previously) Recommend: 1) Possible DIC: Serial PT/INR, PTT, Fibrinogen and D-Dimer 2) R/O HIT. Team already ordered Heparin Induced PF4 Ab. Approximate 4T Score form chart review is 3 (low probability), for which will recommend to wait until Heparin induced Ab is back before starting Argatroban (unless new information or overt thrombosis). 3) If no bleeding, platelet threshold for transfusion is 10,000 (unless fever: 20,000, bleedin,000 or VENEER TRIMMER/Eye Bleedin,000). If bleeding and low fibrinogen (less 100) consider cryoprecipitate. 4) Hand lesions (ecchymosis and bullae) R>L. Unclear timing of development. Consider Dermatology evaluation. Doubt purpura fulminans but suggest expert input. 5) Thank you for this consultation
[2018-11-14] MEDS ORDERED: PT OWN MED DRAWER 7, Y5N ONE (21:36)
[2018-11-14] MEDS: APIXABAN 2.5 MG TABLET GT SCH (21:39)
[2018-11-14] MEDS: LATANOPROST 0.005% OPHTH SOLN 2.5ML BOTTLE OU SCH (21:39)
[2018-11-14] MEDS: CHLORHEXIDINE GLUCONATE 4% CLEANSER FOR DECOLONIZATION TP SCH (21:41)
[2018-11-14] MEDS ORDERED: METOPROLOL TARTRATE 5 MG/5 ML VIAL IVPUSH PRN (23:17)
[2018-11-15] MEDS: CEFTAZIDIME/AVIBACTAM 1.25 GM in DEXTROSE 5%-WATER - 100 ML IVPB SCH ×3 (01:26→18:28)
[2018-11-15] MEDS: SODIUM CHLORIDE 1,000 ML IV SCH (01:26)
[2018-11-15] MEDS: FUROSEMIDE 40 MG/4 ML INJECTABLE VIAL IVPB SCH ×2 (05:41→14:55)
[2018-11-15] MEDS: CARBIDOPA/LEVODOPA 25/250 TABLET (FP) GT SCH ×3 (05:42→21:44)
[2018-11-15 08:07] LABS: BASO % 0.4 % (0-2.0); EOS % 1.7 % (0-4.5); HEMATOCRIT 25.4 % (35.4-49); HEMOGLOBIN 8.2 GM/dL (11.7-16.9); LYMPH % 11.6 % (8-40); MCHC 32.2 g/dl (32.0-35.9); MEAN CELL VOLUME 90.2 fl (80-96); MEAN PLT VOLUME 8.3 fl (7.5-11.1); MONO % 8.1 % (3.8-10.2); NEUT % 78.2 % (42.8-82.8); PLATELET COUNT 94 K/MM3 (134-434); RBC 2.82 M/mm3 (4.00-5.60); RDW 23.4 % (11.9-15.9)
[2018-11-15 08:14] LABS: INR 2.59 (0.83-1.09); PROTHROMBIN TIME (PATIENT) 30.8 SEC (9.7-13.0)
[2018-11-15 08:15] LABS: ALBUMIN 1.3 g/dl (3.4-5.0); BILIRUBIN,TOTAL 1.2 mg/dL (0.2-1); BLOOD UREA NITROGEN 99.5 mg/dL (7-18); CALCIUM 7.9 mg/dL (8.5-10.1); CREATININE 4.3 mg/dL (0.55-1.3); POTASSIUM 3.8 mmol/L (3.5-5.1)
[2018-11-15 08:16] LABS: ACTIVATED PTT 48.1 SECONDS (25.2-36.5)
[2018-11-15] MEDS: ALBUTEROL SO4 2.5/IPRATROPIUM 0.5 INH SOL 3 ML VIAL.NEB. NEB SCH ×4 (08:17→20:37)
[2018-11-15] MEDS ORDERED: PT OWN MED DRAWER 7, Y5N ONE (09:29)
[2018-11-15] MEDS: METOPROLOL TARTRATE 25 MG TABLET (FP) GT SCH ×3 (09:41→22:35)
[2018-11-15] MEDS: PANTOPRAZOLE SODIUM 40 MG VIAL IVPUSH SCH (09:41)
[2018-11-15] MEDS: AMIODARONE HCL 200 MG TABLET (FP) GT SCH (09:42)
[2018-11-15] MEDS: [UNRECOGNIZED DRUG - OTHER] OD SCH ×4 (09:43→21:34)
[2018-11-15] MEDS: AMANTADINE HCL 100MG/10 ML UNIT DOSE CUPS GT SCH ×2 (09:43→21:44)
[2018-11-15] MEDS: TOBRA 0.3%/DEXAMETH 0.1% OPHTHALMIC SUSP 2.5 ML BTL OU SCH ×2 (09:43→21:34)
[2018-11-15] MEDS ORDERED: APIXABAN 2.5 MG TABLET GT SCH (10:00)
--- NOTE | 2018-11-15 10:20 | PN ---
Progress Note, Physician History of Present Illness: PULMONARY AWAKE ON VENT SUPPORT AC MODE - Current Medication List Current Medications: Active Medications Albuterol/Ipratropium (Duoneb -) 1 amp NEB RQID [facility] Last Admin: 11/15/18 08:17 Dose: 1 amp Amantadine HCl (Symmetrel Oral Solution -) 100 mg GT BID [facility] Last Admin: 11/15/18 09:43 Dose: 100 mg Amiodarone HCl (Cordarone -) 200 mg GT DAILY [facility] Last Admin: 11/15/18 09:42 Dose: 200 mg Apixaban (Eliquis -) 2.5 mg GT BID [facility] Last Admin: 11/15/18 09:41 Dose: 2.5 mg Carbidopa/Levodopa (Sinemet 25/250 -) 2 each GT TID [facility] Last Admin: 11/15/18 05:42 Dose: 2 each Collagenase (Santyl -) 1 applic TP DAILY [facility]; Protocol Furosemide (Lasix Injection -) 60 mg IVPB BID@0600,1400 [facility] Stop: 11/16/18 23:59 Last Admin: 11/15/18 05:41 Dose: 60 mg Homatropine HBr (Isopto Homatropine 5% -) 1 drop OD QID [facility] Last Admin: 11/15/18 09:43 Dose: 1 drp Ceftazidime/Avibactam 1.25 gm/ (Dextrose) 100 mls @ 50 mls/hr IVPB Q8H-IV [facility]; Protocol Last Admin: 11/15/18 01:26 Dose: 50 mls/hr Metronidazole (Flagyl 500mg Premixed Ivpb -) 500 mg in 100 mls @ 100 mls/hr IVPB Q8H-IV [facility] Last Admin: 11/15/18 09:33 Dose: 100 mls/hr Sodium Chloride (Normal Saline -) 1,000 mls @ 50 mls/hr IV ASDIR [facility] Last Admin: 11/15/18 01:26 Dose: 50 mls/hr Latanoprost (Xalatan 0.005% Eye Drops -) 1 drop OU HS [facility] Metoprolol Tartrate (Lopressor -) 75 mg GT BID [facility] Last Admin: 11/15/18 09:41 Dose: 75 mg Metoprolol Tartrate (Lopressor Injection -) 5 mg IVPUSH Q4H PRN PRN Reason: TACHYCARDIA Pantoprazole Sodium (Protonix Iv) 40 mg IVPUSH DAILY [facility] Last Admin: 11/15/18 09:41 Dose: 40 mg Tobramycin/Dexamethasone (Tobradex Ophthalmic Suspension -) 1 drop OU BID [facility] Last Admin: 11/15/18 09:43 Dose: 1 drp - Objective Vital Signs: Vital Signs Temperature 97.3 F L 11/15/18 09:53 Pulse Rate 98 H 11/15/18 09:53 Respiratory Rate 28 H 11/15/18 09:53 Blood Pressure 111/69 11/15/18 09:53 O2 Sat by Pulse Oximetry (%) 97 11/15/18 08:15 Constitutional: Yes: Well Nourished, Calm Eyes: Yes: WNL HENT: Yes: WNL Neck: Yes: Supple (TRACH) Cardiovascular: Yes: Pulse Irregular, S1, S2 Respiratory: Yes: Rhonchi (FEW RHONCHI) Gastrointestinal: Yes: Normal Bowel Sounds, Soft Extremities: Yes: WNL Edema: Yes Labs: CBC, BMP 11/15/18 06:50 11/15/18 06:50 INR, PTT INR 2.59 (0.83-1.09) H 11/15/18 06:50 Fibrinogen 467.0 mg/dL (238-498) 11/15/18 06:50 Problem List - Problems (1) Atrial fibrillation with RVR Code(s): I48.91 - UNSPECIFIED ATRIAL FIBRILLATION (2) Chronic respiratory failure Code(s): J96.10 - CHRONIC RESPIRATORY FAILURE, UNSP W HYPOXIA OR HYPERCAPNIA (3) Sepsis Code(s): A41.9 - SEPSIS, UNSPECIFIED ORGANISM Qualifiers: Sepsis type: sepsis due to unspecified organism Sepsis acute organ dysfunction status: with acute organ dysfunction Severe sepsis acute organ dysfunction type: acute renal failure Acute renal failure type: unspecified Severe sepsis shock status: without septic shock Qualified Code(s): A41.9 - Sepsis, unspecified organism; R65.20 - Severe sepsis without septic shock; N17.9 - Acute kidney failure, unspecified (4) Parkinson disease Code(s): G20 - PARKINSON'S DISEASE (5) Pneumonitis Code(s): J18.9 - PNEUMONIA, UNSPECIFIED ORGANISM Assessment/Plan ASSESSMENT AND PLAN: Chronic Respiratory Failure Pneumonia Severe Sepsis Acute Kidney Injury Lactic Acidosis +Troponins likely Demand Ischemia Atrial Fibrillation COPD HTN Parkinsons Disease - antibiotics per ID - wean as tolerated - continue IVF - monitor urine output, creatinine - rate control - continue anticoagulation - enteral feeds - DVT/GI prophylaxis - continue discussions regarding goals of care DR ARELLANO
[2018-11-15 10:39] LABS: ANISOCYTOSIS 2+; MACROCYTOSIS 1+; OVALOCYTE 1+; PLATELET ESTIMATE DECREASED; TARGET CELLS 1+; TEAR DROP CELLS 1+
--- NOTE | 2018-11-15 11:48 | PN ---
Progress Note (short form) - Note Progress Note: covering dr quijano Problems 1. [place] 2. sepsis 3. PNA 4. SBO 5. Parkinson's 6. a-fib 7. chronic resp failure 8. severe sepsis 9. lactic acidosis 10. copd 11. hx of htn Current Medications Albuterol/Ipratropium (Duoneb -) 1 amp NEB RQID [facility] Last Admin: 11/15/18 11:21 Dose: 1 amp Amantadine HCl (Symmetrel Oral Solution -) 100 mg GT BID [facility] Last Admin: 11/15/18 09:43 Dose: 100 mg Amiodarone HCl (Cordarone -) 200 mg GT DAILY [facility] Last Admin: 11/15/18 09:42 Dose: 200 mg Apixaban (Eliquis -) 2.5 mg GT BID [facility] Last Admin: 11/15/18 09:41 Dose: 2.5 mg Carbidopa/Levodopa (Sinemet 25/250 -) 2 each GT TID [facility] Last Admin: 11/15/18 05:42 Dose: 2 each Collagenase (Santyl -) 1 applic TP DAILY [facility]; Protocol Furosemide (Lasix Injection -) 60 mg IVPB BID@0600,1400 [facility] Stop: 11/16/18 23:59 Last Admin: 11/15/18 05:41 Dose: 60 mg Homatropine HBr (Isopto Homatropine 5% -) 1 drop OD QID [facility] Last Admin: 11/15/18 09:43 Dose: 1 drp Ceftazidime/Avibactam 1.25 gm/ (Dextrose) 100 mls @ 50 mls/hr IVPB Q8H-IV [facility]; Protocol Last Admin: 11/15/18 10:50 Dose: 50 mls/hr Metronidazole (Flagyl 500mg Premixed Ivpb -) 500 mg in 100 mls @ 100 mls/hr IVPB Q8H-IV [facility] Last Admin: 11/15/18 09:33 Dose: 100 mls/hr Sodium Chloride (Normal Saline -) 1,000 mls @ 50 mls/hr IV ASDIR [facility] Last Admin: 11/15/18 01:26 Dose: 50 mls/hr Latanoprost (Xalatan 0.005% Eye Drops -) 1 drop OU HS [facility] Metoprolol Tartrate (Lopressor -) 75 mg GT BID [facility] Last Admin: 11/15/18 09:41 Dose: 75 mg Metoprolol Tartrate (Lopressor Injection -) 5 mg IVPUSH Q4H PRN PRN Reason: TACHYCARDIA Pantoprazole Sodium (Protonix Iv) 40 mg IVPUSH DAILY [facility] Last Admin: 11/15/18 09:41 Dose: 40 mg Tobramycin/Dexamethasone (Tobradex Ophthalmic Suspension -) 1 drop OU BID [facility] Last Admin: 11/15/18 09:43 Dose: 1 drp Last Vital Signs Temp Pulse Resp BP Pulse Ox 97.3 F L 98 H 28 H 111/69 97 11/15/18 09:53 11/15/18 09:53 11/15/18 09:53 11/15/18 09:53 11/15/18 08:15 eyes open, does not attend vs noted heent trache on vent Lungs clear anteriorly Heart s1s2 tachy Abd soft tube fed Ext generalized edema CBC, BMP 11/15/18 06:50 11/15/18 06:50 CBC, [facility] 11/14/18 05:40 11/14/18 05:40 CBC, [facility] 11/13/18 05:20 11/13/18 05:20 IMP- [place] now azotemia plateaued Metabolic acidosis steven spoke with the patient- they want dialysis if it is indicated i discussed the pros and cons of HD- fluid removal, control of acidosis, and removal of uremic toxins Plan- limit volumes continue to use diuretics as tolerated and monitor weights hemodialysis if no improvement in renal function Vascular consult for temporary access
--- NOTE | 2018-11-15 15:33 | PN ---
Teaching Attending Note Name of Resident: Renate Montilla ATTENDING PHYSICIAN STATEMENT I saw and evaluated the patient. I reviewed the resident's note and discussed the case with the resident. I agree with the resident's findings and plan as documented. SUBJECTIVE: Non-verbal due to Trach/Vent. OBJECTIVE: Afebrile, Mild tachycardia/tachypnea. Borderline BP. Last Vital Signs Temp Pulse Resp BP Pulse Ox 97.3 F L 98 H 33 H 111/69 97 11/15/18 09:53 11/15/18 09:53 11/15/18 12:44 11/15/18 09:53 11/15/18 08:15 HEENT - Atraumatic, Normocephalic. s/p Trach/Vent - FiO2 40%. Heart - S1, S2, Irregular. Lungs - good air entry bilaterally - basal crackles. Abdomen - PEG in situ. Soft. Bowel Sounds normal. Extremities - UE and LE Edema ++. No calf tenderness. UEs - hemorrhagic bullae and ecchymoses dorsum of hands and forearm. Laboratory Results - last 24 hr 11/14/18 11/15/18 11/15/18 21:49 06:50 06:50 WBC 14.0 H RBC 2.82 L Hgb 8.2 L Hct 25.4 L MCV 90.2 MCH 29.0 MCHC 32.2 RDW 23.4 H Plt Count 94 L MPV 8.3 Absolute Neuts (auto) 11.0 H Neutrophils % 78.2 Lymphocytes % 11.6 Monocytes % 8.1 Eosinophils % 1.7 Basophils % 0.4 D Nucleated RBC % 0 Hypochromia 0 Platelet Estimate Decreased Polychromasia 1+ Poikilocytosis 1+ Anisocytosis 2+ Microcytosis 1+ Macrocytosis 1+ Spherocytes 1+ Target Cells 1+ Tear Drop Cells 1+ Ovalocytes 1+ Lane Cells 1+ Fragmented RBCs 1+ Schistocytes 1+ PT with INR INR PTT (Actin FS) Fibrinogen D-Dimer Sodium 141 Potassium 3.8 Chloride 107 Carbon Dioxide 19 L Anion Gap 15 BUN 99.5 H Creatinine 4.3 H Est GFR (CKD-EPI)AfAm 13.29 Est GFR (CKD-EPI)NonAf 11.47 POC Glucometer 107 Random Glucose 125 H Calcium 7.9 L Total Bilirubin 1.2 H AST 14 L ALT 14 Alkaline Phosphatase 150 H Total Protein 5.0 L Albumin 1.3 L 11/15/18 11/15/18 11/15/18 06:50 06:50 06:50 WBC RBC Hgb Hct MCV MCH MCHC RDW Plt Count MPV Absolute Neuts (auto) Neutrophils % Lymphocytes % Monocytes % Eosinophils % Basophils % Nucleated RBC % Hypochromia Platelet Estimate Polychromasia Poikilocytosis Anisocytosis Microcytosis Macrocytosis Spherocytes Target Cells Tear Drop Cells Ovalocytes [place] Cells Fragmented RBCs Schistocytes PT with INR 30.80 H INR 2.59 H PTT (Actin FS) 48.1 H Cancelled Fibrinogen 467.0 D-Dimer 1688 H Sodium Potassium Chloride Carbon Dioxide Anion Gap BUN Creatinine Est GFR (CKD-EPI)AfAm Est GFR (CKD-EPI)NonAf POC Glucometer Random Glucose Calcium Total Bilirubin AST ALT Alkaline Phosphatase Total Protein Albumin 11/15/18 10:51 WBC RBC Hgb Hct MCV MCH MCHC RDW Plt Count MPV Absolute Neuts (auto) Neutrophils % Lymphocytes % Monocytes % Eosinophils % Basophils % Nucleated RBC % Hypochromia Platelet Estimate Polychromasia Poikilocytosis Anisocytosis Microcytosis Macrocytosis Spherocytes Target Cells Tear Drop Cells Ovalocytes [place] Cells Fragmented RBCs Schistocytes PT with INR INR PTT (Actin FS) Fibrinogen D-Dimer Sodium Potassium Chloride Carbon Dioxide Anion Gap BUN Creatinine Est GFR (CKD-EPI)AfAm Est GFR (CKD-EPI)NonAf POC Glucometer 134 Random Glucose Calcium Total Bilirubin AST ALT Alkaline Phosphatase Total Protein Albumin Current Medications Generic Name Dose Route Start Last Admin Trade Name Freq PRN Reason Stop Dose Admin Albuterol/Ipratropium 1 amp 11/15/18 08:00 11/15/18 11:21 Duoneb - NEB 1 amp RQID LUCRECIA Administration Amantadine HCl 100 mg 11/15/18 10:00 11/15/18 09:43 Symmetrel Oral Solution - GT 100 mg BID LUCRECIA Administration Amiodarone HCl 200 mg 11/15/18 10:00 11/15/18 09:42 Cordarone - GT 200 mg DAILY LUCRECIA Administration Apixaban 2.5 mg 11/15/18 10:00 11/15/18 09:41 Eliquis - GT 2.5 mg BID LUCRECIA Administration Carbidopa/Levodopa 2 each 11/15/18 06:00 11/15/18 14:44 Sinemet 25/250 - GT 2 each TID LUCRECIA Administration Collagenase 1 applic 11/15/18 10:00 Santyl - TP DAILY LUCRECIA Protocol Furosemide 60 mg 11/15/18 05:33 11/15/18 14:55 Lasix Injection - IVPB 11/16/18 23:59 60 mg BID@0600,1400 LUCRECIA Administration Homatropine HBr 1 drop 11/15/18 10:00 11/15/18 14:44 Isopto Homatropine 5% - OD 1 drp QID LUCRECIA Administration Ceftazidime/Avibactam 1.25 gm/ 100 mls @ 50 mls/hr 11/15/18 02:00 11/15/18 10 :50 Dextrose IVPB 50 mls/hr Q8H-IV LUCRECIA Administration Protocol Metronidazole 500 mg in 100 mls @ 100 mls/hr 11/15/18 02:00 11/15/18 09:33 Flagyl 500mg Premixed Ivpb - IVPB 100 mls/hr Q8H-IV LUCRECIA Administration Sodium Chloride 1,000 mls @ 50 mls/hr 11/14/18 23:17 11/15/18 01:26 Normal Saline - IV 50 mls/hr ASDIR LUCRECIA Administration Latanoprost 1 drop 11/15/18 22:00 Xalatan 0.005% Eye Drops - OU HS [facility] Metoprolol Tartrate 75 mg 11/15/18 10:00 11/15/18 09:41 Lopressor - GT 75 mg BID LUCRECIA Administration Metoprolol Tartrate 5 mg 11/14/18 23:17 Lopressor Injection - IVPUSH Q4H PRN TACHYCARDIA Pantoprazole Sodium 40 mg 11/15/18 10:00 11/15/18 09:41 Protonix Iv IVPUSH 40 mg DAILY LUCRECIA Administration Tobramycin/Dexamethasone 1 drop 11/15/18 10:00 11/15/18 09:43 Tobradex Ophthalmic Suspension - OU 1 drp BID LUCRECIA Administration Home Medications Medication Instructions Recorded Acetaminophen [Tylenol] 650 mg GT QID PRN 11/05/18 Albuterol 2.5/Ipratropium 0.5 1 neb IH QID 11/05/18 [Duoneb -] Amantadine Oral Solution 100 mg GT BID 11/05/18 [Symmetrel Oral Solution -] Amiodarone HCl [Cordarone -] 200 mg GT DAILY 11/05/18 Apixaban [Eliquis -] 5 mg GT BID 11/05/18 Ascorbic Acid 500 mg GT DAILY 11/05/18 Carbidopa/Levodopa 25/250 [Sinemet 2 each PO TID 11/05/18 25/250 -] Docusate Liquid [Colace Liquid -] 100 mg GT DAILY 11/05/18 Famotidine 20 mg GT DAILY 11/05/18 Furosemide [Lasix -] 40 mg GT DAILY 11/05/18 Homatropine HBr 5% Ophth Soln 1 drop OD QID 11/05/18 [Isopto Homatropine] Latanoprost 0.005% Eye Drops 1 drop OU HS 11/05/18 [Xalatan 0.005% Eye Drops -] Metoprolol Tartrate [Lopressor -] 50 mg GT BID 11/05/18 Multivitamin [Multiple Vitamins] 15 ml GT DAILY 11/05/18 Polyethylene Glycol 3350 [Miralax 17 gm GT DAILY 11/05/18 (For Bowel Prep) -] Tobramycin/Dexamethasone [Tobradex 1 drop OU BID 11/05/18 Eye Drops] Zinc Sulfate [Zinc-220] 220 mg GT DAILY 11/05/18 ASSESSMENT AND PLAN: 88 year old male with Parkinson's Disease, COPD, HTN, Atrial Fibrillation, CRF s /p Trach/PEG, presented with fevers/chills, abdominal pain/distension, found to have SBO and sepsis secondary to Pneumonia. 1. Acute on Chronic Respiratory Failure and Severe Sepsis secondary to Pneumonia s/p Trach, Vent dependent at baseline Sputum Cx positive for Pseudomonas, Klebsiella ESBL, Proteus ESBL Continue Ceftazidime/Avibactam, Flagyl Afebrile, Borderline BP. ID following. 2. Dilated CBD/Elevated LFTs - possibly sec to sepsis/shock liver - LFTs improving - further management as per GI. Afebrile, Borderline BP. 3. Atrial fibrillation with RVR - resumed on Metoprolol (at increased dose of 75mg BID) and Amiodarone. Transitioned from Heparin drip to Eliquis (now held due to elevated INR and Thrombocytopenia). 4. [place] sec to Sepsis/ATN versus contrast induced nephropathy. No obstruction on imaging. Persistent Uremia and elevated Creat. Nephrology following - apparent discussion with family by Nephrology and plan to initiate HD. Will await formal Nephrology recommendations. 5. Elevated troponin - sec to demand due to sepsis. TnI max 0.07. No further work-up currently. Can follow with cardiology as out-patient. 6. Parkinson's Disease - Continue Sinemet/Amantadine. 7. HTN - BP borderline. Resumed on Metoprolol. 8. Dysphagia s/p PEG - SBO resolved. PEG feeds resumed. 9. Thrombocytopenia - echymoses and bullae UEs - dermatology consulted as recommended by Hematology. Will monitor. Off Heparin, Eliquis held for past 2 days (although received this AM dose, will discontinue Eliquis for now). HIT Ab requested. Hematology consulted. DIC work-up in progress - Fibrinogen levels normal, DDIMER positive. Further recommendations as per Hematology. 10. Elevated INR - INR 2.58 ?multifactorial due to sepsis, poor hepatic synthetic function, with addition of Eliquis likely contributing in the setting of [place]. Eliquis currently held. Hematology following. DVT Px - Eliquis held. GI Px - PPI.
--- NOTE | 2018-11-15 16:20 | PN ---
Physical Exam: SUBJECTIVE: Patient seen and examined. non-verbal, able to make eye contact OBJECTIVE: Vital Signs Period Temp Pulse Resp BP Sys/Cope Pulse Ox Last 24 Hr 96.7 F-98.4 F 85-98 20-33 84-124/53-77 97-100 GENERAL: The patient is awake and alert, on vent HEAD: Normal with no signs of trauma. EYES: pupils reactive to light R > L, follows verbal stimuli, sclera anicteric, conjunctiva clear. No ptosis. ENT: Ears normal, nares patent, moist mucous membranes NECK: Trach in place, limited ROM LUNGS: Breath sounds equal, rhonchi bilaterally, abdominal breathing HEART: Tachycardic and irregular rhythm, S1, S2 without murmur, rub or gallop. ABDOMEN: Soft, mild distention, hypoactive bowel sounds, gastric tube in place EXTREMITIES: +2 pitting edema in hands, +1 pitting edema of feet, warm to touch NEUROLOGICAL: can move fingers and toes, follows voices with eyes and head PSYCH: unable to assess SKIN: Warm, dry, significant ecchymosis noted on both hands, bullae present on right dorsal surface Laboratory Results - last 24 hr 11/14/18 11/15/18 11/15/18 21:49 06:50 06:50 WBC 14.0 H RBC 2.82 L Hgb 8.2 L Hct 25.4 L MCV 90.2 MCH 29.0 MCHC 32.2 RDW 23.4 H Plt Count 94 L MPV 8.3 Absolute Neuts (auto) 11.0 H Neutrophils % 78.2 Lymphocytes % 11.6 Monocytes % 8.1 Eosinophils % 1.7 Basophils % 0.4 D Nucleated RBC % 0 Hypochromia 0 Platelet Estimate Decreased Polychromasia 1+ Poikilocytosis 1+ Anisocytosis 2+ Microcytosis 1+ Macrocytosis 1+ Spherocytes 1+ Target Cells 1+ Tear Drop Cells 1+ Ovalocytes 1+ [place] Cells 1+ Fragmented RBCs 1+ Schistocytes 1+ PT with INR INR PTT (Actin FS) Fibrinogen D-Dimer Sodium 141 Potassium 3.8 Chloride 107 Carbon Dioxide 19 L Anion Gap 15 BUN 99.5 H Creatinine 4.3 H Est GFR (CKD-EPI)AfAm 13.29 Est GFR (CKD-EPI)NonAf 11.47 POC Glucometer 107 Random Glucose 125 H Calcium 7.9 L Total Bilirubin 1.2 H AST 14 L ALT 14 Alkaline Phosphatase 150 H Total Protein 5.0 L Albumin 1.3 L 11/15/18 11/15/18 11/15/18 06:50 06:50 06:50 WBC RBC Hgb Hct MCV MCH MCHC RDW Plt Count MPV Absolute Neuts (auto) Neutrophils % Lymphocytes % Monocytes % Eosinophils % Basophils % Nucleated RBC % Hypochromia Platelet Estimate Polychromasia Poikilocytosis Anisocytosis Microcytosis Macrocytosis Spherocytes Target Cells Tear Drop Cells Ovalocytes [place] Cells Fragmented RBCs Schistocytes PT with INR 30.80 H INR 2.59 H PTT (Actin FS) 48.1 H Cancelled Fibrinogen 467.0 D-Dimer 1688 H Sodium Potassium Chloride Carbon Dioxide Anion Gap BUN Creatinine Est GFR (CKD-EPI)AfAm Est GFR (CKD-EPI)NonAf POC Glucometer Random Glucose Calcium Total Bilirubin AST ALT Alkaline Phosphatase Total Protein Albumin 11/15/18 10:51 WBC RBC Hgb Hct MCV MCH MCHC RDW Plt Count MPV Absolute Neuts (auto) Neutrophils % Lymphocytes % Monocytes % Eosinophils % Basophils % Nucleated RBC % Hypochromia Platelet Estimate Polychromasia Poikilocytosis Anisocytosis Microcytosis Macrocytosis Spherocytes Target Cells Tear Drop Cells Ovalocytes [place] Cells Fragmented RBCs Schistocytes PT with INR INR PTT (Actin FS) Fibrinogen D-Dimer Sodium Potassium Chloride Carbon Dioxide Anion Gap BUN Creatinine Est GFR (CKD-EPI)AfAm Est GFR (CKD-EPI)NonAf POC Glucometer 134 Random Glucose Calcium Total Bilirubin AST ALT Alkaline Phosphatase Total Protein Albumin Active Medications Generic Name Dose Route Start Last Admin Trade Name Freq PRN Reason Stop Dose Admin Albuterol/Ipratropium 1 amp 11/15/18 08:00 11/15/18 11:21 Duoneb - NEB 1 amp RQID LUCRECIA Administration Amantadine HCl 100 mg 11/15/18 10:00 11/15/18 09:43 Symmetrel Oral Solution - GT 100 mg BID LUCRECIA Administration Amiodarone HCl 200 mg 11/15/18 10:00 11/15/18 09:42 Cordarone - GT 200 mg DAILY LUCRECIA Administration Apixaban 2.5 mg 11/15/18 10:00 11/15/18 09:41 Eliquis - GT 2.5 mg BID LUCRECIA Administration Carbidopa/Levodopa 2 each 11/15/18 06:00 11/15/18 14:44 Sinemet 25/250 - GT 2 each TID LUCRECIA Administration Collagenase 1 applic 11/15/18 10:00 Santyl - TP DAILY LUCRECIA Protocol Furosemide 60 mg 11/15/18 05:33 11/15/18 05:41 Lasix Injection - IVPB 11/16/18 23:59 60 mg BID@0600,1400 LUCRECIA Administration Homatropine HBr 1 drop 11/15/18 10:00 11/15/18 14:44 Isopto Homatropine 5% - OD 1 drp QID LUCRECIA Administration Ceftazidime/Avibactam 1.25 gm/ 100 mls @ 50 mls/hr 11/15/18 02:00 11/15/18 10 :50 Dextrose IVPB 50 mls/hr Q8H-IV LUCRECIA Administration Protocol Metronidazole 500 mg in 100 mls @ 100 mls/hr 11/15/18 02:00 11/15/18 09:33 Flagyl 500mg Premixed Ivpb - IVPB 100 mls/hr Q8H-IV LUCRECIA Administration Sodium Chloride 1,000 mls @ 50 mls/hr 11/14/18 23:17 11/15/18 01:26 Normal Saline - IV 50 mls/hr ASDIR LUCRECIA Administration Latanoprost 1 drop 11/15/18 22:00 Xalatan 0.005% Eye Drops - OU HS LUCRECIA Metoprolol Tartrate 75 mg 11/15/18 10:00 11/15/18 09:41 Lopressor - GT 75 mg BID LUCRECIA Administration Metoprolol Tartrate 5 mg 11/14/18 23:17 Lopressor Injection - IVPUSH Q4H PRN TACHYCARDIA Pantoprazole Sodium 40 mg 11/15/18 10:00 11/15/18 09:41 Protonix Iv IVPUSH 40 mg DAILY LUCRECIA Administration Tobramycin/Dexamethasone 1 drop 11/15/18 10:00 11/15/18 09:43 Tobradex Ophthalmic Suspension - OU 1 drp BID LUCRECIA Administration ASSESSMENT/PLAN: Mr. Smalls is an 88yo male with Parkinson's, COPD, CHF, HTN, a-fib on Eliquis, respiratory failure with trach and PEG, hx of prostate cancer who presents for abdominal distention and fevers. He was found to be septic 2/2 pneumonia, as well as SBO, and CBD dilation. UA on 11/10/18 resulted in UTI diagnosis. #sepsis 2/2 PNA -pulmonary exam improved -leukocytosis improved last week but rising last 2 days to 14.0 -blood cultures negative -sputum culture Klebsiella, Pseudomonas, Proteus Mirabilus -CXR on 11/12 shows congestion and infiltration continuing to slightly improve -CT abd/pelvis 11/05/18 showed mod to large pleural effusion on right, moderate on left -continue Ceftazidime/Avibactam and Flagyl -ID following -CBC #complicated UTI -galarza in place -continue abx for coverage #acute on chronic diastolic CHF -echo EF 65-70%, no LVH, mild RA dilation, moderate TR, moderate AR, no pericardial effusion -I/O +1470 yesterday -60mg Lasix BID -NS 50mL/hr -EKG 11/08/18: irregular rhythm, HR 98, QTc 589 -monitor QTc and medications which could increase it -CMP #a-fib Previously with tachycardia HR avg 90s -metoprolol -PT/INR 2.59, Eliquis held #thrombocytopenia Plt 94 -heme workup pending #SBO, resolved -restarted tube feedings #constipation -1 BM yesterday and 1 today -miralax #hypoglycemia BG well-controlled 134 max today -BGM -SSI #elevated liver enzymes improving -GI following -auto-immune panel ordered #[place] Cr 4.3, increasing -Nephro following- [place] likely multifactorial -urine eosinophils pending #HTN well-controlled, currently on metoprolol -frequent VS checks #COPD -duo-neb #Parkinson's -continue home meds FEN NS 50mL/hr monitor lytes tube feedings DVT Ppe SCDs, Eliquis held for elevated PT/INR GI Ppe Protonix DNR Visit type - Emergency Visit Emergency Visit: Yes ED Registration Date: 11/05/18 Care time: The patient presented to the Emergency Department on the above date and was hospitalized for further evaluation of their emergent condition. - New Patient This patient is new to me today: No - Critical Care Critical Care patient: No - Discharge Referral Referred to [facility] Med [facility] No ATTENDING PHYSICIAN STATEMENT I saw and evaluated the patient. I reviewed the resident's note and discussed the case with the resident. I agree with the resident's findings and plan as documented. SUBJECTIVE: OBJECTIVE: ASSESSMENT AND PLAN:
[2018-11-15] MEDS: COLLAGENASE CLOSTRIDIUM HIST. 30 GRAMS TUBE TP SCH (16:32)
[2018-11-15 19:07] LABS: ATYPICAL pANCA <1:20 titer (Neg:<1:20); C-ANCA <1:20 titer (Neg:<1:20)
[2018-11-15] MEDS: LATANOPROST 0.005% OPHTH SOLN 2.5ML BOTTLE OU SCH (21:34)
[2018-11-16] MEDS: SODIUM CHLORIDE 1,000 ML IV SCH ×2 (02:41→14:05)
[2018-11-16] MEDS: CEFTAZIDIME/AVIBACTAM 1.25 GM in DEXTROSE 5%-WATER - 100 ML IVPB SCH ×2 (02:42→11:19)
[2018-11-16] MEDS: FUROSEMIDE 40 MG/4 ML INJECTABLE VIAL IVPB SCH ×2 (06:26→14:04)
[2018-11-16] MEDS: CARBIDOPA/LEVODOPA 25/250 TABLET (FP) GT SCH ×3 (06:26→21:59)
--- NOTE | 2018-11-16 07:25 | PN ---
Physical Exam: SUBJECTIVE: Patient seen and examined. Pt is non-verbal on trach/vent. OBJECTIVE: Vital Signs Period Temp Pulse Resp BP Sys/Cope Pulse Ox Last 24 Hr 97.0 F-98.1 F 82-111 12-33 90-135/41-78 96-97 GENERAL: The patient is awake and responsive to auditory stimuli. Appears in moderate distress. HEAD: Normal with no signs of trauma. EYES: Pupils reactive to light R>L, extraocular movements intact, sclera anicteric, conjunctiva clear. No ptosis. ENT: Ears normal, nares patent, moist mucous membranes. NECK: Tracheostomy in place, limited ROM LUNGS: Decreased breath sounds. no accessory muscle use. HEART: Regular rate and rhythm, S1, S2 without murmur, rub or gallop. ABDOMEN: Soft, tender to deep palpation, mild distention, hypoactive bowel sounds EXTREMITIES: +2 pitting edema in hands, +1 pitting edema of feet, warm to touch NEUROLOGICAL: can move fingers and toes, follows voices with eyes and head PSYCH: unable to assess SKIN: Warm, dry, significant ecchymosis noted on both hands, bullae present on right dorsal surface Laboratory Results - last 24 hr 11/11/18 11/15/18 11/15/18 11:20 06:50 06:50 WBC 14.0 H RBC 2.82 L Hgb 8.2 L Hct 25.4 L MCV 90.2 MCH 29.0 MCHC 32.2 RDW 23.4 H Plt Count 94 L MPV 8.3 Absolute Neuts (auto) 11.0 H Neutrophils % 78.2 Lymphocytes % 11.6 Monocytes % 8.1 Eosinophils % 1.7 Basophils % 0.4 D Nucleated RBC % 0 Hypochromia 0 Platelet Estimate Decreased Polychromasia 1+ Poikilocytosis 1+ Anisocytosis 2+ Microcytosis 1+ Macrocytosis 1+ Spherocytes 1+ Target Cells 1+ Tear Drop Cells 1+ Ovalocytes 1+ Lane Cells 1+ Fragmented RBCs 1+ Schistocytes 1+ PT with INR INR PTT (Actin FS) Fibrinogen D-Dimer Sodium 141 Potassium 3.8 Chloride 107 Carbon Dioxide 19 L Anion Gap 15 BUN 99.5 H Creatinine 4.3 H Est GFR (CKD-EPI)AfAm 13.29 Est GFR (CKD-EPI)NonAf 11.47 POC Glucometer Random Glucose 125 H Calcium 7.9 L Total Bilirubin 1.2 H AST 14 L ALT 14 Alkaline Phosphatase 150 H Total Protein 5.0 L Albumin 1.3 L Stool Occult Blood c-ANCA <1:20 Proteinase 3 (PR3) <3.5 p-ANCA <1:20 Atypical p-ANCA <1:20 Myeloperoxidase Ab <9.0 11/15/18 11/15/18 11/15/18 06:50 06:50 06:50 WBC RBC Hgb Hct MCV MCH MCHC RDW Plt Count MPV Absolute Neuts (auto) Neutrophils % Lymphocytes % Monocytes % Eosinophils % Basophils % Nucleated RBC % Hypochromia Platelet Estimate Polychromasia Poikilocytosis Anisocytosis Microcytosis Macrocytosis Spherocytes Target Cells Tear Drop Cells Ovalocytes Rule Cells Fragmented RBCs Schistocytes PT with INR 30.80 H INR 2.59 H PTT (Actin FS) 48.1 H Cancelled Fibrinogen 467.0 D-Dimer 1688 H Sodium Potassium Chloride Carbon Dioxide Anion Gap BUN Creatinine Est GFR (CKD-EPI)AfAm Est GFR (CKD-EPI)NonAf POC Glucometer Random Glucose Calcium Total Bilirubin AST ALT Alkaline Phosphatase Total Protein Albumin Stool Occult Blood c-ANCA Proteinase 3 (PR3) p-ANCA Atypical p-ANCA Myeloperoxidase Ab 11/15/18 11/15/18 11/15/18 10:51 22:13 23:45 WBC RBC Hgb Hct MCV MCH MCHC RDW Plt Count MPV Absolute Neuts (auto) Neutrophils % Lymphocytes % Monocytes % Eosinophils % Basophils % Nucleated RBC % Hypochromia Platelet Estimate Polychromasia Poikilocytosis Anisocytosis Microcytosis Macrocytosis Spherocytes Target Cells Tear Drop Cells Ovalocytes Rule Cells Fragmented RBCs Schistocytes PT with INR INR PTT (Actin FS) Fibrinogen D-Dimer Sodium Potassium Chloride Carbon Dioxide Anion Gap BUN Creatinine Est GFR (CKD-EPI)AfAm Est GFR (CKD-EPI)NonAf POC Glucometer 134 114 Random Glucose Calcium Total Bilirubin AST ALT Alkaline Phosphatase Total Protein Albumin Stool Occult Blood Negative c-ANCA Proteinase 3 (PR3) p-ANCA Atypical p-ANCA Myeloperoxidase Ab Active Medications Generic Name Dose Route Start Last Admin Trade Name Freq PRN Reason Stop Dose Admin Albuterol/Ipratropium 1 amp 11/15/18 08:00 11/15/18 20:37 Duoneb - NEB 1 amp RQID [facility] Administration Amantadine HCl 100 mg 11/15/18 10:00 11/15/18 21:44 Symmetrel Oral Solution - GT 100 mg BID [facility] Administration Amiodarone HCl 200 mg 11/15/18 10:00 11/15/18 09:42 Cordarone - GT 200 mg DAILY [facility] Administration Carbidopa/Levodopa 2 each 11/15/18 06:00 11/16/18 06:26 Sinemet 25/250 - GT 2 each TID [facility] Administration Collagenase 1 applic 11/15/18 10:00 11/15/18 16:32 Santyl - TP Not Given DAILY [facility] Protocol Furosemide 60 mg 11/15/18 05:33 11/16/18 06:26 Lasix Injection - IVPB 11/16/18 23:59 60 mg BID@0600,1400 [facility] Administration Homatropine HBr 1 drop 11/15/18 10:00 11/15/18 21:34 Isopto Homatropine 5% - OD 1 drp QID [facility] Administration Ceftazidime/Avibactam 1.25 gm/ 100 mls @ 50 mls/hr 11/15/18 02:00 11/16/18 02 :42 Dextrose IVPB 50 mls/hr Q8H-IV [facility] Administration Protocol Metronidazole 500 mg in 100 mls @ 100 mls/hr 11/15/18 02:00 11/16/18 02:41 Flagyl 500mg Premixed Ivpb - IVPB 100 mls/hr Q8H-IV [facility] Administration Sodium Chloride 1,000 mls @ 50 mls/hr 11/14/18 23:17 11/16/18 02:41 Normal Saline - IV Not Given ASDIR [facility] Sodium Chloride 250 mls @ 3,000 mls/hr 11/15/18 16:53 Normal Saline - IV 11/16/18 16:53 PRN PRN Hypotension during Dialysis Latanoprost 1 drop 11/15/18 22:00 11/15/18 21:34 Xalatan 0.005% Eye Drops - OU 1 drop HS [facility] Administration Metoprolol Tartrate 75 mg 11/15/18 10:00 11/15/18 22:35 Lopressor - GT Not Given BID [facility] Metoprolol Tartrate 5 mg 11/14/18 23:17 Lopressor Injection - IVPUSH Q4H PRN TACHYCARDIA Pantoprazole Sodium 40 mg 11/15/18 10:00 11/15/18 09:41 Protonix Iv IVPUSH 40 mg DAILY [facility] Administration Tobramycin/Dexamethasone 1 drop 11/15/18 10:00 11/15/18 21:34 Tobradex Ophthalmic Suspension - OU 1 drp BID [facility] Administration ASSESSMENT/PLAN: Mr. Smalls is an 88yo male with Parkinson's, COPD, CHF, HTN, a-fib on Eliquis, respiratory failure with trach and PEG, hx of prostate cancer who presents for abdominal distention and fevers. He was found to be septic 2/2 pneumonia, as well as SBO, and CBD dilation. UA on 11/10/18 resulted in UTI diagnosis. Creatinine has been increasing, pt's family wants to begin dialysis. #acute on chronic respiratory failure s/p trach/vent with sepsis 2/2 PNA Pt appeared uncomfortable during exam in the morning. This afternooon pt desaturated to upper 60s when trying to be moved for weight. -Tylenol ordered for pain, will reassess -CXR ordered this afternoon -pulmonary exam stable from previous days -leukocytosis 12.7 -blood cultures negative -sputum culture Klebsiella, Pseudomonas, Proteus Mirabilus -CXR on 11/12 shows congestion and infiltration continuing to slightly improve -CT abd/pelvis 11/05/18 showed mod to large pleural effusion on right, moderate on left -continue Ceftazidime/Avibactam and Flagyl (day 8) -ID following -CBC #complicated UTI -galarza in place -continue abx for coverage #acute on chronic diastolic CHF -echo EF 65-70%, no LVH, mild RA dilation, moderate TR, moderate AR, no pericardial effusion -I/O +1100 yesterday -60mg Lasix BID -NS 50mL/hr -EKG 11/08/18: irregular rhythm, HR 98, QTc 589 -monitor QTc and medications which could increase it -CMP #FR[place] Cr 4.3 Pt family is requesting HD. IR will put in line tomorrow to begin HD possibly tomorrow as well. -fluids being held, limiting drips -Nephro following- [place] likely multifactorial #a-fib HR avg 100s -metoprolol -PT/INR 2.59, Eliquis held for procedure -INR ordered pre-procedure #thrombocytopenia Plt 101 -monitor for signs of bleeding -type and cross #SBO, resolved -restarted tube feedings #constipation -2 BM in last 24 hours -miralax #hypoglycemia BG well-controlled 134 max today -BGM -SSI #elevated Alk Phos ALT 13, AST 12, Alk Phos 170 -negative FACUNDO, c-ANCA, p-ANCA, DS DNA Ab, GBM Ab, Heparin-induced plt Ab, myeloperoxidase Ab -negative hep B, and hep C, negative hep A IgM -GI following #HTN well-controlled, isolated hypotension readings daily, currently on metoprolol -frequent VS checks #COPD -duo-neb #Parkinson's -continue home meds FEN none monitor lytes tube feedings DVT Ppe SCDs, Eliquis held for elevated PT/INR GI Ppe Protonix DNR Visit type - Emergency Visit Emergency Visit: Yes ED Registration Date: 11/05/18 Care time: The patient presented to the Emergency Department on the above date and was hospitalized for further evaluation of their emergent condition. - New Patient This patient is new to me today: No - Critical Care Critical Care patient: No - Discharge Referral Referred to [facility] Med P.C[facility] No ATTENDING PHYSICIAN STATEMENT I saw and evaluated the patient. I reviewed the resident's note and discussed the case with the resident. I agree with the resident's findings and plan as documented. SUBJECTIVE: OBJECTIVE: ASSESSMENT AND PLAN:
[2018-11-16] MEDS: ALBUTEROL SO4 2.5/IPRATROPIUM 0.5 INH SOL 3 ML VIAL.NEB. NEB SCH ×4 (07:35→20:15)
[2018-11-16 07:59] LABS: BASO % 0.3 % (0-2.0); EOS % 1.5 % (0-4.5); HEMATOCRIT 25.5 % (35.4-49); HEMOGLOBIN 8.3 GM/dL (11.7-16.9); LYMPH % 5.8 % (8-40); MCH 29.4 pg (25.7-33.7); MCHC 32.7 g/dl (32.0-35.9); MEAN CELL VOLUME 89.7 fl (80-96); MEAN PLT VOLUME 8.8 fl (7.5-11.1); MONO % 9.3 % (3.8-10.2); NEUT % 83.1 % (42.8-82.8); PLATELET COUNT 101 K/MM3 (134-434); RBC 2.84 M/mm3 (4.00-5.60); RDW 23.6 % (11.9-15.9); WHITE BLOOD COUNT 12.7 K/mm3 (4.0-10.0)
[2018-11-16 08:41] LABS: ALBUMIN 1.4 g/dl (3.4-5.0); BILIRUBIN,TOTAL 1.1 mg/dL (0.2-1); BLOOD UREA NITROGEN 95.9 mg/dL (7-18); CALCIUM 7.7 mg/dL (8.5-10.1); CREATININE 4.3 mg/dL (0.55-1.3); POTASSIUM 3.9 mmol/L (3.5-5.1)
[2018-11-16] MEDS ORDERED: PT OWN MED DRAWER 7, Y5N ONE (09:11)
[2018-11-16] MEDS: METOPROLOL TARTRATE 25 MG TABLET (FP) GT SCH ×2 (09:23→21:59)
[2018-11-16] MEDS: AMANTADINE HCL 100MG/10 ML UNIT DOSE CUPS GT SCH ×2 (09:23→22:00)
[2018-11-16] MEDS: AMIODARONE HCL 200 MG TABLET (FP) GT SCH (09:23)
[2018-11-16] MEDS: PANTOPRAZOLE SODIUM 40 MG VIAL IVPUSH SCH (09:24)
[2018-11-16] MEDS: [UNRECOGNIZED DRUG - OTHER] OD SCH ×4 (09:25→21:59)
[2018-11-16] MEDS: TOBRA 0.3%/DEXAMETH 0.1% OPHTHALMIC SUSP 2.5 ML BTL OU SCH ×2 (09:25→21:58)
[2018-11-16 11:07] LABS: ANTIGLOMERULAR BASEMENT MEN.AB 3 units (0-20)
[2018-11-16] MEDS: COLLAGENASE CLOSTRIDIUM HIST. 30 GRAMS TUBE TP SCH (11:19)
--- NOTE | 2018-11-16 12:47 | PN ---
Progress Note (short form) - Note Progress Note: PULMONARY Vented, arousable. No fevers recorded. Vital Signs Period Temp Pulse Resp BP Sys/Cope Pulse Ox Last 24 Hr 97.0 F-98.1 F 82-111 12-30 90-135/41-78 96-99 Intake & Output 11/13/18 11/14/18 11/15/18 11/16/18 23:59 23:59 23:59 23:59 Intake Total 3500 2195 1210 1650 Output Total 900 725 600 400 Balance 2600 7425 084 6897 Weight 89.857 kg 92.2 kg 91.898 kg Gen: mildly tachypneic, vented Heart: irregular Lung: scattered rhonchi Abd: soft, nontender Ext: + edema CBC, BMP 11/16/18 07:40 11/16/18 07:40 Active Medications Albuterol/Ipratropium (Duoneb -) 1 amp NEB RQID [facility] Last Admin: 11/16/18 11:06 Dose: 1 amp Amantadine HCl (Symmetrel Oral Solution -) 100 mg GT BID [facility] Last Admin: 11/16/18 09:23 Dose: 100 mg Amiodarone HCl (Cordarone -) 200 mg GT DAILY [facility] Last Admin: 11/16/18 09:23 Dose: 200 mg Carbidopa/Levodopa (Sinemet 25/250 -) 2 each GT TID [facility] Last Admin: 11/16/18 06:26 Dose: 2 each Collagenase (Santyl -) 1 applic TP DAILY [facility]IA; Protocol Last Admin: 11/16/18 11:19 Dose: 1 applic Furosemide (Lasix Injection -) 60 mg IVPB BID@0600,1400 [facility] Stop: 11/16/18 23:59 Last Admin: 11/16/18 06:26 Dose: 60 mg Homatropine HBr (Isopto Homatropine 5% -) 1 drop OD QID [facility] Last Admin: 11/16/18 09:25 Dose: 1 drp Ceftazidime/Avibactam 1.25 gm/ (Dextrose) 100 mls @ 50 mls/hr IVPB Q8H-IV [facility]; Protocol Last Admin: 11/16/18 11:19 Dose: 50 mls/hr Metronidazole (Flagyl 500mg Premixed Ivpb -) 500 mg in 100 mls @ 100 mls/hr IVPB Q8H-IV [facility] Last Admin: 11/16/18 09:24 Dose: 100 mls/hr Sodium Chloride (Normal Saline -) 1,000 mls @ 50 mls/hr IV ASDIR [facility] Last Admin: 11/16/18 02:41 Dose: Not Given Sodium Chloride (Normal Saline -) 250 mls @ 3,000 mls/hr IV PRN PRN PRN Reason: Hypotension during Dialysis Stop: 11/16/18 16:53 Latanoprost (Xalatan 0.005% Eye Drops -) 1 drop OU HS [facility] Last Admin: 11/15/18 21:34 Dose: 1 drop Metoprolol Tartrate (Lopressor -) 75 mg GT BID [facility] Last Admin: 11/16/18 09:23 Dose: 75 mg Metoprolol Tartrate (Lopressor Injection -) 5 mg IVPUSH Q4H PRN PRN Reason: TACHYCARDIA Pantoprazole Sodium (Protonix Iv) 40 mg IVPUSH DAILY [facility] Last Admin: 11/16/18 09:24 Dose: 40 mg Tobramycin/Dexamethasone (Tobradex Ophthalmic Suspension -) 1 drop OU BID [facility] Last Admin: 11/16/18 09:25 Dose: 1 drp A/P Chronic Respiratory Failure Pneumonia Severe Sepsis Acute Kidney Injury Lactic Acidosis +Troponins likely Demand Ischemia Atrial Fibrillation COPD HTN Parkinsons Disease - antibiotics per ID - continue IVF - monitor urine output, creatinine - rate control - continue anticoagulation - enteral feeds - DVT/GI prophylaxis - continue discussions regarding goals of care
[2018-11-16] MEDS ORDERED: ACETAMINOPHEN 1000 MG/100 ML VIAL (NON FORMULARY) IVPB ONE (13:17)
--- NOTE | 2018-11-16 13:25 | PN ---
Teaching Attending Note Name of Resident: Renate Montilla ATTENDING PHYSICIAN STATEMENT I saw and evaluated the patient. I reviewed the resident's note and discussed the case with the resident. I agree with the resident's findings and plan as documented. SUBJECTIVE:resting comfortable OBJECTIVE: Last Vital Signs Temp Pulse Resp BP Pulse Ox 97.3 F L 101 H 24 H 129/74 98 11/16/18 09:34 11/16/18 10:10 11/16/18 12:17 11/16/18 09:34 11/16/18 10:10 Intake & Output 11/13/18 11/14/18 11/15/18 11/16/18 23:59 23:59 23:59 23:59 Intake Total 3500 2195 1210 1650 Output Total 900 725 600 400 Balance 2600 7349 005 5689 Weight 198 lb 1.6 oz 203 lb 4.259 oz 202 lb 9.6 oz General NAD CV S1 S2 tachy Lungs decreased breath sounds anteriorly Abdomen soft diffusely tender, slight distended. tympanic extremities 2+ pitting edema UE>LE, hemorrhagic bullae noted on B/L Hands ASSESSMENT AND PLAN: 88 year old male with Parkinson's Disease, COPD, HTN, Atrial Fibrillation, CRF s /p Trach/PEG, presented with fevers/chills, abdominal pain/distension, found to have SBO and sepsis secondary to Pneumonia. 1. Acute on Chronic Respiratory Failure and Severe Sepsis secondary to Pneumonia. s/p trach. vent dependent. noted to have high pressures on vent. + pseudomonas. on ceftazidime and flagyl. ID and pulmonary on board 2. [place] due to sepsis/ATN vs contrast induced nephropathy- will need HD at this time. consent obtained from the family by nephro. request IR to place line. 3. Volume overload- not responding to lasix challenge. will need HD for volume removal 4. Elevated INR- unknown cause. no signs of bleeding. fibrinogen is not low. low concern for DIC. HIT panel pending. holding heparin and eliquis. heme on board 5. Dilated CBD/Elevated LFT- possibly due to sepsis and shock liver. LFT improving. GI on board 6. Atrial fibrillation with RVR - resumed on Metoprolol (at increased dose of 75mg BID) and Amiodarone. Transitioned from Heparin drip to Eliquis (now held due to elevated INR and Thrombocytopenia). 7. hemorrhagic bullae- noted on hands. derm consulted 8. Elevated troponin - sec to demand due to sepsis. TnI max 0.07. No further work-up currently. Can follow with cardiology as out-patient. 9. Parkinson's Disease - Continue Sinemet/Amantadine. 10. HTN - BP borderline. Resumed on Metoprolol. 11. Dysphagia s/p PEG - SBO resolved. PEG feeds resumed. 12, Thrombocytopenia- no signs of bleeding. Hematology on board 13. DVT Px - Eliquis held. SCD 14. DNR. poor prognosis. palliative care
[2018-11-16] MEDS ORDERED: ACETAMINOPHEN 1000 MG/100 ML VIAL (NON FORMULARY) IVPB SCH (13:30)
--- NOTE | 2018-11-16 13:52 | PN ---
Progress Note (short form) - Note Progress Note: NAD trach to vent cor-rrr lungs decreased bs at bases abd soft, +GT ext +edema hands/legs galarza no central lines CBC, BMP 11/16/18 07:40 11/16/18 07:40 Microbiology 11/08/18 17:00 Blood - Peripheral Venous Blood Culture - Final NO GROWTH AFTER 5 DAYS INCUBATION 11/08/18 16:35 Blood - Peripheral Venous Blood Culture - Final NO GROWTH AFTER 5 DAYS INCUBATION 11/05/18 15:00 Blood - Peripheral Venous Blood Culture - Final NO GROWTH AFTER 5 DAYS INCUBATION 11/05/18 14:30 Blood - Peripheral Venous Blood Culture - Final NO GROWTH AFTER 5 DAYS INCUBATION 11/06/18 13:00 Sputum - Endotrachea Suction/Ventilator Gram Stain - Final 11/06/18 13:00 Sputum - Endotrachea Suction/Ventilator Sputum Culture - Final Klebsiella Pneumoniae - Esbl Pseudomonas Aeruginosa Proteus Mirabilus - Esbl Produ 11/06/18 18:00 Urine For Antigen Detection Legionella Antigen - Final 11/06/18 18:00 Urine For Antigen Detection Streptococcus pneumoniae Antigen (M - Final 11/05/18 15:00 Urine - Urine - Catheterized Urine Culture - Final Yeast Like Organism a/p sepsis-day #8 ceftaz -avibactam to continue, decrease dose for worsening renal function suspect cxray findings are partly volume overload chronic resp failure worsening renal failure with anasarca- familly wishes to try HD parkinson's disease overall prognosis is poor strict contact isolation for resistant GNR Problem List - Problems (1) Fever Code(s): R50.9 - FEVER, UNSPECIFIED (2) SBO (small bowel obstruction) Code(s): K56.609 - UNSP INTESTNL OBST, UNSP TO PARTIAL VERSUS COMPLETE OBST (3) Pneumonia Code(s): J18.9 - PNEUMONIA, UNSPECIFIED ORGANISM Qualifiers: Pneumonia type: due to unspecified organism Laterality: right Lung location: lower lobe of lung Qualified Code(s): J18.1 - Lobar pneumonia, unspecified organism (4) Chronic respiratory failure Code(s): J96.10 - CHRONIC RESPIRATORY FAILURE, UNSP W HYPOXIA OR HYPERCAPNIA (5) MRSA (methicillin resistant Staphylococcus aureus) colonization Code(s): Z22.322 - CARRIER OR SUSPECTED CARRIER OF METHICILLIN RESIS STAPH
[2018-11-16] MEDS ORDERED: PHYTONADIONE 10 MG/1 ML AMP SQ ONE (14:25)
[2018-11-16] MEDS ORDERED: FUROSEMIDE 40 MG/4 ML INJECTABLE VIAL IVPB SCH (14:54)
--- NOTE | 2018-11-16 14:54 | PN ---
Progress Note, Physician History of Present Illness: Pt seen and examined at bedside. He is awake and appears comfortable. - Current Medication List Current Medications: Active Medications Albuterol/Ipratropium (Duoneb -) 1 amp NEB RQID [facility] Last Admin: 11/16/18 11:06 Dose: 1 amp Amantadine HCl (Symmetrel Oral Solution -) 100 mg GT BID [facility] Last Admin: 11/16/18 09:23 Dose: 100 mg Amiodarone HCl (Cordarone -) 200 mg GT DAILY [facility] Last Admin: 11/16/18 09:23 Dose: 200 mg Carbidopa/Levodopa (Sinemet 25/250 -) 2 each GT TID [facility] Last Admin: 11/16/18 13:37 Dose: 2 each Collagenase (Santyl -) 1 applic TP DAILY [facility]; Protocol Last Admin: 11/16/18 11:19 Dose: 1 applic Furosemide (Lasix Injection -) 60 mg IVPB BID@0600,1400 [facility] Stop: 11/16/18 23:59 Last Admin: 11/16/18 14:04 Dose: 60 mg Homatropine HBr (Isopto Homatropine 5% -) 1 drop OD QID [facility] Last Admin: 11/16/18 13:37 Dose: 1 drp Metronidazole (Flagyl 500mg Premixed Ivpb -) 500 mg in 100 mls @ 100 mls/hr IVPB Q8H-IV [facility] Last Admin: 11/16/18 09:24 Dose: 100 mls/hr Sodium Chloride (Normal Saline -) 1,000 mls @ 50 mls/hr IV ASDIR [facility] Last Admin: 11/16/18 14:05 Dose: 50 mls/hr Sodium Chloride (Normal Saline -) 250 mls @ 3,000 mls/hr IV PRN PRN PRN Reason: Hypotension during Dialysis Stop: 11/16/18 16:53 Ceftazidime/Avibactam 0.94 gm/ (Dextrose) 100 mls @ 50 mls/hr IVPB Q12H [facility]; Protocol Latanoprost (Xalatan 0.005% Eye Drops -) 1 drop OU HS [facility] Last Admin: 11/15/18 21:34 Dose: 1 drop Metoprolol Tartrate (Lopressor -) 75 mg GT BID [facility] Last Admin: 11/16/18 09:23 Dose: 75 mg Metoprolol Tartrate (Lopressor Injection -) 5 mg IVPUSH Q4H PRN PRN Reason: TACHYCARDIA Pantoprazole Sodium (Protonix Iv) 40 mg IVPUSH DAILY [facility] Last Admin: 11/16/18 09:24 Dose: 40 mg Phytonadione (Aqua Mephyton Injection -) 5 mg SQ ONCE ONE Stop: 11/16/18 14:26 Tobramycin/Dexamethasone (Tobradex Ophthalmic Suspension -) 1 drop OU BID [facility] Last Admin: 11/16/18 09:25 Dose: 1 drp - Objective Vital Signs: Vital Signs Temperature 97.3 F L 11/16/18 09:34 Pulse Rate 101 H 11/16/18 10:10 Respiratory Rate 24 H 11/16/18 12:17 Blood Pressure 129/74 11/16/18 09:34 O2 Sat by Pulse Oximetry (%) 98 11/16/18 10:10 Constitutional: Yes: Calm Eyes: Yes: Conjunctiva Clear HENT: Yes: Atraumatic Neck: Yes: Other (trache) Cardiovascular: Yes: S1, S2 Respiratory: Yes: Mechanically Ventilated Gastrointestinal: Yes: Soft Genitourinary: Yes: Salguero Present Musculoskeletal: Yes: Muscle Weakness Edema: No Neurological: Yes: Pre-Existing Deficit Labs: CBC, BMP 11/16/18 07:40 11/16/18 07:40 INR, PTT INR 2.59 (0.83-1.09) H 11/15/18 06:50 Fibrinogen 467.0 mg/dL (238-498) 11/15/18 06:50 Problem List - Problems (1) [place] (acute kidney injury) Code(s): N17.9 - ACUTE KIDNEY FAILURE, UNSPECIFIED (2) Atrial fibrillation with RVR Code(s): I48.91 - UNSPECIFIED ATRIAL FIBRILLATION (3) Ileus Code(s): K56.7 - ILEUS, UNSPECIFIED (4) Sepsis Code(s): A41.9 - SEPSIS, UNSPECIFIED ORGANISM Qualifiers: Sepsis type: sepsis due to unspecified organism Sepsis acute organ dysfunction status: with acute organ dysfunction Severe sepsis acute organ dysfunction type: acute renal failure Acute renal failure type: unspecified Severe sepsis shock status: without septic shock Qualified Code(s): A41.9 - Sepsis, unspecified organism; R65.20 - Severe sepsis without septic shock; N17.9 - Acute kidney failure, unspecified Assessment/Plan Current Medications Generic Name Dose Route Start Last Admin Trade Name Freq PRN Reason Stop Dose Admin Albuterol/Ipratropium 1 amp 11/15/18 08:00 11/16/18 11:06 Duoneb - NEB 1 amp RQID [facility] Administration Amantadine HCl 100 mg 11/15/18 10:00 11/16/18 09:23 Symmetrel Oral Solution - GT 100 mg BID [facility] Administration Amiodarone HCl 200 mg 11/15/18 10:00 11/16/18 09:23 Cordarone - GT 200 mg DAILY [facility] Administration Carbidopa/Levodopa 2 each 11/15/18 06:00 11/16/18 13:37 Sinemet 25/250 - GT 2 each TID [facility] Administration Collagenase 1 applic 11/15/18 10:00 11/16/18 11:19 Santyl - TP 1 applic DAILY [facility] Administration Protocol Furosemide 60 mg 11/15/18 05:33 11/16/18 14:04 Lasix Injection - IVPB 11/16/18 23:59 60 mg BID@0600,1400 [facility] Administration Homatropine HBr 1 drop 11/15/18 10:00 11/16/18 13:37 Isopto Homatropine 5% - OD 1 drp QID [facility] Administration Metronidazole 500 mg in 100 mls @ 100 mls/hr 11/15/18 02:00 11/16/18 09:24 Flagyl 500mg Premixed Ivpb - IVPB 100 mls/hr Q8H-IV [facility] Administration Sodium Chloride 1,000 mls @ 50 mls/hr 11/14/18 23:17 11/16/18 14:05 Normal Saline - IV 50 mls/hr ASDIR [facility] Administration Sodium Chloride 250 mls @ 3,000 mls/hr 11/15/18 16:53 Normal Saline - IV 11/16/18 16:53 PRN PRN Hypotension during Dialysis Ceftazidime/Avibactam 0.94 gm/ 100 mls @ 50 mls/hr 11/16/18 23:00 Dextrose IVPB Q12H [facility] Protocol Latanoprost 1 drop 11/15/18 22:00 11/15/18 21:34 Xalatan 0.005% Eye Drops - OU 1 drop HS [facility] Administration Metoprolol Tartrate 75 mg 11/15/18 10:00 11/16/18 09:23 Lopressor - GT 75 mg BID [facility] Administration Metoprolol Tartrate 5 mg 11/14/18 23:17 Lopressor Injection - IVPUSH Q4H PRN TACHYCARDIA Pantoprazole Sodium 40 mg 11/15/18 10:00 11/16/18 09:24 Protonix Iv IVPUSH 40 mg DAILY [facility] Administration Phytonadione 5 mg 11/16/18 14:25 Aqua Mephyton Injection - SQ 11/16/18 14:26 ONCE ONE Tobramycin/Dexamethasone 1 drop 11/15/18 10:00 11/16/18 09:25 Tobradex Ophthalmic Suspension - OU 1 drp BID [facility] Administration Impression: 1. [place] 2. sepsis 3. PNA 4. SBO 5. Parkinson's 6. a-fib 7. chronic resp failure 8. severe sepsis 9. lactic acidosis 10. copd 11. hx of htn Plan - d/c fluids - cont lasix - limit fluids from drips - pt volume overloaded - monitor urine output - likely multifactorial [place], pt has multiple reasons to develop renal failure - cont vent support - do not place hd access at this point, will evaluate daily
--- NOTE | 2018-11-16 18:53 | PN ---
Progress Note (short form) - Note Progress Note: Patient seen and examined LFT"s improved Kidney function worse Coagulopathy persists Last Vital Signs Temp Pulse Resp BP Pulse Ox 97.0 F L 105 H 12 108/39 L 98 11/16/18 18:00 11/16/18 18:00 11/16/18 18:00 11/16/18 18:00 11/16/18 10:10 Vent-trach Cor-RSR Lungs- decreased breath sounds LE edema bullae hands with ecchymoses CBC, BMP 11/16/18 07:40 11/16/18 07:40 INR, PTT INR 2.59 (0.83-1.09) H 11/15/18 06:50 Fibrinogen 467.0 mg/dL (238-498) 11/15/18 06:50 Current Medications Generic Name Dose Route Start Last Admin Trade Name Freq PRN Reason Stop Dose Admin Albuterol/Ipratropium 1 amp 11/15/18 08:00 11/16/18 15:40 Duoneb - NEB 1 amp RQID LUCRECIA Administration Amantadine HCl 100 mg 11/15/18 10:00 11/16/18 09:23 Symmetrel Oral Solution - GT 100 mg BID LUCRECIA Administration Amiodarone HCl 200 mg 11/15/18 10:00 11/16/18 09:23 Cordarone - GT 200 mg DAILY LUCRECIA Administration Carbidopa/Levodopa 2 each 11/15/18 06:00 11/16/18 13:37 Sinemet 25/250 - GT 2 each TID LUCRECIA Administration Collagenase 1 applic 11/15/18 10:00 11/16/18 11:19 Santyl - TP 1 applic DAILY LUCRECIA Administration Protocol Furosemide 80 mg 11/16/18 14:54 Lasix Injection - IVPB 11/16/18 23:59 BID@0600,1400 LUCRECIA Homatropine HBr 1 drop 11/15/18 10:00 11/16/18 18:04 Isopto Homatropine 5% - OD 1 drp QID LUCRECIA Administration Metronidazole 500 mg in 100 mls @ 100 mls/hr 11/15/18 02:00 11/16/18 17:25 Flagyl 500mg Premixed Ivpb - IVPB 100 mls/hr Q8H-IV LUCRECIA Administration Sodium Chloride 250 mls @ 3,000 mls/hr 11/15/18 16:53 Normal Saline - IV 11/16/18 16:53 PRN PRN Hypotension during Dialysis Ceftazidime/Avibactam 0.94 gm/ 100 mls @ 50 mls/hr 11/16/18 23:00 Dextrose IVPB Q12H LUCRECIA Protocol Latanoprost 1 drop 11/15/18 22:00 11/15/18 21:34 Xalatan 0.005% Eye Drops - OU 1 drop HS LUCRECIA Administration Metoprolol Tartrate 75 mg 11/15/18 10:00 11/16/18 09:23 Lopressor - GT 75 mg BID LUCRECIA Administration Metoprolol Tartrate 5 mg 11/14/18 23:17 Lopressor Injection - IVPUSH Q4H PRN TACHYCARDIA Pantoprazole Sodium 40 mg 11/15/18 10:00 11/16/18 09:24 Protonix Iv IVPUSH 40 mg DAILY LUCRECIA Administration Tobramycin/Dexamethasone 1 drop 11/15/18 10:00 11/16/18 09:25 Tobradex Ophthalmic Suspension - OU 1 drp BID LUCRECIA Administration Impression: Respiratory failure Kidney failure Sepsis with resistantant organisms Anemia Thrombocytopenia Coagulopathy HIT pending Suspect coagulopathy, thrombocytopenia on basis of sepsis. To continue to onitor.
[2018-11-16] MEDS: LATANOPROST 0.005% OPHTH SOLN 2.5ML BOTTLE OU SCH (21:59)
[2018-11-16] MEDS: CEFTAZIDIME/AVIBACTAM 0.94 GM in DEXTROSE 5%-WATER - 100 ML IVPB SCH (21:59)
[2018-11-17] MEDS: CARBIDOPA/LEVODOPA 25/250 TABLET (FP) GT SCH ×3 (05:49→23:23)
[2018-11-17 07:13] LABS: BASO % 0.3 % (0-2.0); EOS % 0.9 % (0-4.5); HEMATOCRIT 26.9 % (35.4-49); HEMOGLOBIN 8.5 GM/dL (11.7-16.9); LYMPH % 7.2 % (8-40); MCH 28.9 pg (25.7-33.7); MCHC 31.5 g/dl (32.0-35.9); MEAN CELL VOLUME 91.6 fl (80-96); MEAN PLT VOLUME 9.2 fl (7.5-11.1); MONO % 8.6 % (3.8-10.2); PLATELET COUNT 102 K/MM3 (134-434); RBC 2.93 M/mm3 (4.00-5.60); RDW 23.9 % (11.9-15.9); WHITE BLOOD COUNT 16.6 K/mm3 (4.0-10.0)
[2018-11-17 07:20] LABS: CREATININE 4.6 mg/dL (0.55-1.3)
[2018-11-17 07:23] LABS: BLOOD UREA NITROGEN 106.5 mg/dL (7-18)
[2018-11-17 07:41] LABS: INR 2.43 (0.83-1.09); PROTHROMBIN TIME (PATIENT) 28.9 SEC (9.7-13.0)
[2018-11-17] MEDS: ALBUTEROL SO4 2.5/IPRATROPIUM 0.5 INH SOL 3 ML VIAL.NEB. NEB SCH ×4 (08:00→21:30)
[2018-11-17] MEDS: PANTOPRAZOLE SODIUM 40 MG VIAL IVPUSH SCH (10:23)
[2018-11-17] MEDS: TOBRA 0.3%/DEXAMETH 0.1% OPHTHALMIC SUSP 2.5 ML BTL OU SCH ×2 (10:25→23:27)
[2018-11-17] MEDS: [UNRECOGNIZED DRUG - OTHER] OD SCH ×4 (10:26→23:27)
[2018-11-17] MEDS ORDERED: PT OWN MED DRAWER 7, Y5N ONE ×2 (10:39→13:13)
[2018-11-17] MEDS: AMIODARONE HCL 200 MG TABLET (FP) GT SCH (11:05)
[2018-11-17] MEDS: METOPROLOL TARTRATE 25 MG TABLET (FP) GT SCH ×2 (11:05→23:24)
[2018-11-17] MEDS: AMANTADINE HCL 100MG/10 ML UNIT DOSE CUPS GT SCH ×2 (11:06→23:25)
--- NOTE | 2018-11-17 11:34 | PN ---
Progress Note, Physician History of Present Illness: Pt seen and examined at bedside. He is awake and appears comfortable. He remains on vent. - Current Medication List Current Medications: Active Medications Albumin Human (Albumin Human 25% -) 25 gm IVPB Q30M LUCRECIA Stop: 11/17/18 13:01 Albuterol/Ipratropium (Duoneb -) 1 amp NEB RQID LUCRECIA Last Admin: 11/17/18 08:00 Dose: 1 amp Amantadine HCl (Symmetrel Oral Solution -) 100 mg GT BID LUCRECIA Last Admin: 11/17/18 11:06 Dose: 100 mg Amiodarone HCl (Cordarone -) 200 mg GT DAILY LUCRECIA Last Admin: 11/17/18 11:05 Dose: 200 mg Carbidopa/Levodopa (Sinemet 25/250 -) 2 each GT TID LUCRECIA Last Admin: 11/17/18 05:49 Dose: 2 each Collagenase (Santyl -) 1 applic TP DAILY LUCRECIA; Protocol Last Admin: 11/16/18 11:19 Dose: 1 applic Furosemide (Lasix Injection -) 80 mg IVPUSH ONCE ONE Stop: 11/17/18 11:30 Homatropine HBr (Isopto Homatropine 5% -) 1 drop OD QID LUCRECIA Last Admin: 11/17/18 10:26 Dose: 1 drp Metronidazole (Flagyl 500mg Premixed Ivpb -) 500 mg in 100 mls @ 100 mls/hr IVPB Q8H-IV LUCRECIA Last Admin: 11/17/18 10:24 Dose: 100 mls/hr Sodium Chloride (Normal Saline -) 250 mls @ 3,000 mls/hr IV PRN PRN PRN Reason: Hypotension during Dialysis Stop: 11/16/18 16:53 Ceftazidime/Avibactam 0.94 gm/ (Dextrose) 100 mls @ 50 mls/hr IVPB Q12H LUCRECIA; Protocol Last Admin: 11/16/18 21:59 Dose: 50 mls/hr Latanoprost (Xalatan 0.005% Eye Drops -) 1 drop OU HS LUCRECIA Last Admin: 11/16/18 21:59 Dose: 1 drop Metoprolol Tartrate (Lopressor -) 75 mg GT BID LUCRECIA Last Admin: 11/17/18 11:05 Dose: 75 mg Metoprolol Tartrate (Lopressor Injection -) 5 mg IVPUSH Q4H PRN PRN Reason: TACHYCARDIA Pantoprazole Sodium (Protonix Iv) 40 mg IVPUSH DAILY [facility] Last Admin: 11/17/18 10:23 Dose: 40 mg Phytonadione (Mephyton -) 5 mg PO ONCE ONE Stop: 11/17/18 11:46 Tobramycin/Dexamethasone (Tobradex Ophthalmic Suspension -) 1 drop OU BID [facility] Last Admin: 11/17/18 10:25 Dose: 1 drp - Objective Vital Signs: Vital Signs Temperature 97.4 F L 11/17/18 10:00 Pulse Rate 92 H 11/17/18 10:00 Respiratory Rate 32 H 11/17/18 10:00 Blood Pressure 112/68 11/17/18 10:00 O2 Sat by Pulse Oximetry (%) 100 11/17/18 08:21 Constitutional: Yes: Calm Eyes: Yes: Conjunctiva Clear HENT: Yes: Atraumatic Neck: Yes: Other (trache) Cardiovascular: Yes: S1, S2 Respiratory: Yes: Mechanically Ventilated Gastrointestinal: Yes: Soft Genitourinary: Yes: Salguero Present Musculoskeletal: Yes: Muscle Weakness Edema: Yes (improving) Edema: LUE: 1+, RUE: 1+, LLE: 2+, RLE: 2+ Integumentary: Yes: Bruising, Laceration Neurological: Yes: Pre-Existing Deficit Labs: CBC, BMP 11/17/18 06:03 11/17/18 06:03 INR, PTT INR 2.43 (0.83-1.09) H 11/17/18 06:03 Fibrinogen 467.0 mg/dL (238-498) 11/15/18 06:50 Problem List - Problems (1) [place] (acute kidney injury) Code(s): N17.9 - ACUTE KIDNEY FAILURE, UNSPECIFIED (2) Atrial fibrillation with RVR Code(s): I48.91 - UNSPECIFIED ATRIAL FIBRILLATION (3) Ileus Code(s): K56.7 - ILEUS, UNSPECIFIED (4) Sepsis Code(s): A41.9 - SEPSIS, UNSPECIFIED ORGANISM Qualifiers: Sepsis type: sepsis due to unspecified organism Sepsis acute organ dysfunction status: with acute organ dysfunction Severe sepsis acute organ dysfunction type: acute renal failure Acute renal failure type: unspecified Severe sepsis shock status: without septic shock Qualified Code(s): A41.9 - Sepsis, unspecified organism; R65.20 - Severe sepsis without septic shock; N17.9 - Acute kidney failure, unspecified Assessment/Plan Current Medications Generic Name Dose Route Start Last Admin Trade Name Freq PRN Reason Stop Dose Admin Albumin Human 25 gm 11/17/18 11:30 Albumin Human 25% - IVPB 11/17/18 13:01 Q30M LUCRECIA Albuterol/Ipratropium 1 amp 11/15/18 08:00 11/17/18 08:00 Duoneb - NEB 1 amp RQID LUCRECIA Administration Amantadine HCl 100 mg 11/15/18 10:00 11/17/18 11:06 Symmetrel Oral Solution - GT 100 mg BID LUCRECIA Administration Amiodarone HCl 200 mg 11/15/18 10:00 11/17/18 11:05 Cordarone - GT 200 mg DAILY LUCRECIA Administration Carbidopa/Levodopa 2 each 11/15/18 06:00 11/17/18 05:49 Sinemet 25/250 - GT 2 each TID LUCRECIA Administration Collagenase 1 applic 11/15/18 10:00 11/16/18 11:19 Santyl - TP 1 applic DAILY LUCRECIA Administration Protocol Furosemide 80 mg 11/17/18 11:29 Lasix Injection - IVPUSH 11/17/18 11:30 ONCE ONE Homatropine HBr 1 drop 11/15/18 10:00 11/17/18 10:26 Isopto Homatropine 5% - OD 1 drp QID LUCRECIA Administration Metronidazole 500 mg in 100 mls @ 100 mls/hr 11/15/18 02:00 11/17/18 10:24 Flagyl 500mg Premixed Ivpb - IVPB 100 mls/hr Q8H-IV LUCRECIA Administration Sodium Chloride 250 mls @ 3,000 mls/hr 11/15/18 16:53 Normal Saline - IV 11/16/18 16:53 PRN PRN Hypotension during Dialysis Ceftazidime/Avibactam 0.94 gm/ 100 mls @ 50 mls/hr 11/16/18 23:00 11/16/18 21 :59 Dextrose IVPB 50 mls/hr Q12H LUCRECIA Administration Protocol Latanoprost 1 drop 11/15/18 22:00 11/16/18 21:59 Xalatan 0.005% Eye Drops - OU 1 drop HS LUCRECIA Administration Metoprolol Tartrate 75 mg 11/15/18 10:00 11/17/18 11:05 Lopressor - GT 75 mg BID LUCRECIA Administration Metoprolol Tartrate 5 mg 11/14/18 23:17 Lopressor Injection - IVPUSH Q4H PRN TACHYCARDIA Pantoprazole Sodium 40 mg 11/15/18 10:00 11/17/18 10:23 Protonix Iv IVPUSH 40 mg DAILY LUCRECIA Administration Phytonadione 5 mg 11/17/18 11:45 Mephyton - PO 11/17/18 11:46 ONCE ONE Tobramycin/Dexamethasone 1 drop 11/15/18 10:00 11/17/18 10:25 Tobradex Ophthalmic Suspension - OU 1 drp BID LUCRECIA Administration Impression: 1. [place] 2. sepsis 3. PNA 4. SBO 5. Parkinson's 6. a-fib 7. chronic resp failure 8. severe sepsis 9. lactic acidosis 10. copd 11. hx of htn Plan - will give more lasix with albumin - do not restart fluids - spoke to his son Beny and had a long conversation about treatment options including HD vs conservative management. Will hold off HD for today as his urine output is improved and re-evaluate tomorrow - lytes stable - repeat cxr in am - likely multifactorial [place], pt has multiple reasons to develop renal failure - cont vent support - do not place hd access at this point, will evaluate daily
[2018-11-17] MEDS ORDERED: PHYTONADIONE 5 MG TABLET PO ONE ×2 (11:45→18:00)
[2018-11-17] MEDS: CEFTAZIDIME/AVIBACTAM 0.94 GM in DEXTROSE 5%-WATER - 100 ML IVPB SCH ×2 (11:52→23:41)
[2018-11-17] MEDS ORDERED: FUROSEMIDE 40 MG/4 ML INJECTABLE VIAL IVPUSH ONE (12:00)
[2018-11-17] MEDS ORDERED: ALBUMIN HUMAN 25% 100 ML VIAL IVPB ONE (12:15)
--- NOTE | 2018-11-17 12:33 | PN ---
Teaching Attending Note Name of Resident: Renate Montilla ATTENDING PHYSICIAN STATEMENT I saw and evaluated the patient. I reviewed the resident's note and discussed the case with the resident. I agree with the resident's findings and plan as documented. SUBJECTIVE:alert. does not respond to questioning OBJECTIVE: Last Vital Signs Temp Pulse Resp BP Pulse Ox 97.4 F L 92 H 28 H 112/68 100 11/17/18 10:00 11/17/18 10:00 11/17/18 12:01 11/17/18 10:00 11/17/18 08:21 Intake & Output 11/14/18 11/15/18 11/16/18 11/17/18 23:59 23:59 23:59 23:59 Intake Total 2195 1210 2450 1150 Output Total 640 146 6521 400 Balance 2205 049 4168 750 Weight 203 lb 4.259 oz 202 lb 9.6 oz General NAD CV S1 S2 tachy Lungs decreased breath sounds anteriorly Abdomen soft diffusely tender, slight distended. tympanic extremities 2+ pitting edema UE>LE, hemorrhagic bullae noted on B/L Hands ASSESSMENT AND PLAN: 88 year old male with Parkinson's Disease, COPD, HTN, Atrial Fibrillation, CRF s /p Trach/PEG, presented with fevers/chills, abdominal pain/distension, found to have SBO and sepsis secondary to Pneumonia. 1. Acute on Chronic Respiratory Failure and Severe Sepsis secondary to Pneumonia. s/p trach. vent dependent. +pseudomonas. on ceftazidime and flagyl. ID and pulmonary on board 2. [place] due to sepsis/ATN vs contrast induced nephropathy- UOP has improved however is volume overloaded. nephro spoke with family and wants to hold off on HD at this time. cont wtih lasix IV. albumin to be given as well 3. Volume overload- refusing HD at this time. cont with lasix and albumin 4. Elevated INR- unknown cause. vit K given yesterday. will give additional dose. no plans for procedures at this time. HIT panel pending. holding heparin and eliquis. heme on board 5. Dilated CBD/Elevated LFT- possibly due to sepsis and shock liver. LFT improving. GI on board 6. Atrial fibrillation with RVR - resumed on Metoprolol (at increased dose of 75mg BID) and Amiodarone. Transitioned from Heparin drip to Eliquis (now held due to elevated INR and Thrombocytopenia). 7. hemorrhagic bullae- noted on hands. derm consulted 8. Elevated troponin - sec to demand due to sepsis. TnI max 0.07. No further work-up currently. Can follow with cardiology as out-patient. 9. Parkinson's Disease - Continue Sinemet/Amantadine. 10. HTN - BP borderline. Resumed on Metoprolol. 11. Dysphagia s/p PEG - SBO resolved. PEG feeds resumed. 12, Thrombocytopenia- no signs of bleeding. Hematology on board 13. DVT Px - Eliquis held. SCD 14. DNR. poor prognosis. palliative care. possible LTACH referral
[2018-11-17 13:00] LABS: INR 2.25 (0.83-1.09); PROTHROMBIN TIME (PATIENT) 26.8 SEC (9.7-13.0)
[2018-11-17] MEDS: COLLAGENASE CLOSTRIDIUM HIST. 30 GRAMS TUBE TP SCH (13:00)
--- NOTE | 2018-11-17 13:34 | PN ---
Progress Note, Physician History of Present Illness: pulmonary awake on vent support ac mode,no acute distress - Current Medication List Current Medications: Active Medications Albuterol/Ipratropium (Duoneb -) 1 amp NEB RQID [facility] Last Admin: 11/17/18 12:02 Dose: 1 amp Amantadine HCl (Symmetrel Oral Solution -) 100 mg GT BID [facility] Last Admin: 11/17/18 11:06 Dose: 100 mg Amiodarone HCl (Cordarone -) 200 mg GT DAILY [facility] Last Admin: 11/17/18 11:05 Dose: 200 mg Carbidopa/Levodopa (Sinemet 25/250 -) 2 each GT TID [facility] Last Admin: 11/17/18 05:49 Dose: 2 each Collagenase (Santyl -) 1 applic TP DAILY [facility]; Protocol Last Admin: 11/16/18 11:19 Dose: 1 applic Homatropine HBr (Isopto Homatropine 5% -) 1 drop OD QID [facility] Last Admin: 11/17/18 10:26 Dose: 1 drp Metronidazole (Flagyl 500mg Premixed Ivpb -) 500 mg in 100 mls @ 100 mls/hr IVPB Q8H-IV [facility] Last Admin: 11/17/18 10:24 Dose: 100 mls/hr Sodium Chloride (Normal Saline -) 250 mls @ 3,000 mls/hr IV PRN PRN PRN Reason: Hypotension during Dialysis Stop: 11/16/18 16:53 Ceftazidime/Avibactam 0.94 gm/ (Dextrose) 100 mls @ 50 mls/hr IVPB Q12H [facility]; Protocol Last Admin: 11/17/18 11:52 Dose: 50 mls/hr Latanoprost (Xalatan 0.005% Eye Drops -) 1 drop OU HS [facility] Last Admin: 11/16/18 21:59 Dose: 1 drop Metoprolol Tartrate (Lopressor -) 75 mg GT BID [facility] Last Admin: 11/17/18 11:05 Dose: 75 mg Metoprolol Tartrate (Lopressor Injection -) 5 mg IVPUSH Q4H PRN PRN Reason: TACHYCARDIA Pantoprazole Sodium (Protonix Iv) 40 mg IVPUSH DAILY [facility] Last Admin: 11/17/18 10:23 Dose: 40 mg Tobramycin/Dexamethasone (Tobradex Ophthalmic Suspension -) 1 drop OU BID [facility] Last Admin: 11/17/18 10:25 Dose: 1 drp - Objective Vital Signs: Vital Signs Temperature 97.4 F L 11/17/18 10:00 Pulse Rate 92 H 11/17/18 10:00 Respiratory Rate 28 H 11/17/18 12:01 Blood Pressure 112/68 11/17/18 10:00 O2 Sat by Pulse Oximetry (%) 100 11/17/18 08:21 Constitutional: Yes: Well Nourished, Calm, Other (mildly tachypneic) Eyes: Yes: WNL HENT: Yes: WNL Neck: Yes: Supple (trach) Cardiovascular: Yes: Pulse Irregular, S1, S2 Respiratory: Yes: Rhonchi (scattered rhonchi) Gastrointestinal: Yes: Normal Bowel Sounds, Soft Extremities: Yes: WNL Edema: No Labs: CBC, BMP 11/17/18 06:03 11/17/18 06:03 INR, PTT INR 2.25 (0.83-1.09) H 11/17/18 12:30 Fibrinogen 467.0 mg/dL (238-498) 11/15/18 06:50 Problem List - Problems (1) Atrial fibrillation with RVR Code(s): I48.91 - UNSPECIFIED ATRIAL FIBRILLATION (2) Chronic respiratory failure Code(s): J96.10 - CHRONIC RESPIRATORY FAILURE, UNSP W HYPOXIA OR HYPERCAPNIA (3) Sepsis Code(s): A41.9 - SEPSIS, UNSPECIFIED ORGANISM Qualifiers: Sepsis type: sepsis due to unspecified organism Sepsis acute organ dysfunction status: with acute organ dysfunction Severe sepsis acute organ dysfunction type: acute renal failure Acute renal failure type: unspecified Severe sepsis shock status: without septic shock Qualified Code(s): A41.9 - Sepsis, unspecified organism; R65.20 - Severe sepsis without septic shock; N17.9 - Acute kidney failure, unspecified (4) Parkinson disease Code(s): G20 - PARKINSON'S DISEASE (5) Pneumonitis Code(s): J18.9 - PNEUMONIA, UNSPECIFIED ORGANISM Assessment/Plan ASSESSMENT AND PLAN: Chronic Respiratory Failure Pneumonia Severe Sepsis Acute Kidney Injury Lactic Acidosis +Troponins likely Demand Ischemia Atrial Fibrillation COPD HTN Parkinsons Disease - antibiotics per ID - continue IVF - monitor urine output, creatinine - rate control - continue anticoagulation - enteral feeds - DVT/GI prophylaxis - continue discussions regarding goals of care DR ARELLANO
--- NOTE | 2018-11-17 14:20 | PN ---
Physical Exam: SUBJECTIVE: Patient seen and examined. Pt is non-verbal on trach and vent. OBJECTIVE: Vital Signs Period Temp Pulse Resp BP Sys/Cope Pulse Ox Last 24 Hr 97.0 F-97.8 F 64-105 12-32 103-144/39-69 98-100 GENERAL: The patient is awake and responsive to auditory stimuli. Appears in no distress. HEAD: Normal with no signs of trauma. EYES: Pupils reactive to light R>L, extraocular movements intact, sclera anicteric, conjunctiva clear. No ptosis. ENT: Ears normal, nares patent, moist mucous membranes. NECK: Tracheostomy in place, limited ROM LUNGS: Decreased breath sounds, especially right lower lobe. no accessory muscle use. HEART: Regular rate and rhythm, S1, S2 without murmur, rub or gallop. ABDOMEN: Soft, tender to deep palpation, mild distention, hypoactive bowel sounds EXTREMITIES: +2 pitting edema in hands, +1 pitting edema of feet, warm to touch NEUROLOGICAL: can move fingers and toes, follows voices with eyes and head PSYCH: unable to assess SKIN: Warm, dry, significant ecchymosis noted on both hands, bullae present on bilateral dorsal surfaces, with open wound on right hand Laboratory Results - last 24 hr 11/16/18 11/17/18 11/17/18 22:20 06:03 06:03 WBC RBC Hgb Hct MCV MCH MCHC RDW Plt Count MPV Absolute Neuts (auto) Neutrophils % Lymphocytes % Monocytes % Eosinophils % Basophils % Nucleated RBC % PT with INR 28.90 H INR 2.43 H Sodium 141 Potassium 4.0 Chloride 108 H Carbon Dioxide 21 Anion Gap 12 BUN 106.5 H* Creatinine 4.6 H Est GFR (CKD-EPI)AfAm 12.25 Est GFR (CKD-EPI)NonAf 10.57 POC Glucometer 145 Random Glucose 136 H Calcium 8.0 L Blood Type Antibody Screen 11/17/18 11/17/18 11/17/18 06:03 06:10 08:45 WBC 16.6 H RBC 2.93 L Hgb 8.5 L Hct 26.9 L MCV 91.6 MCH 28.9 MCHC 31.5 L RDW 23.9 H Plt Count 102 L MPV 9.2 Absolute Neuts (auto) 13.8 H Neutrophils % 83.0 H Lymphocytes % 7.2 L D Monocytes % 8.6 Eosinophils % 0.9 Basophils % 0.3 Nucleated RBC % 0 PT with INR INR Sodium Potassium Chloride Carbon Dioxide Anion Gap BUN Creatinine Est GFR (CKD-EPI)AfAm Est GFR (CKD-EPI)NonAf POC Glucometer Random Glucose Calcium Blood Type O POSITIVE O POSITIVE Antibody Screen Negative 11/17/18 11/17/18 10:34 12:30 WBC RBC Hgb Hct MCV MCH MCHC RDW Plt Count MPV Absolute Neuts (auto) Neutrophils % Lymphocytes % Monocytes % Eosinophils % Basophils % Nucleated RBC % PT with INR 26.80 H INR 2.25 H Sodium Potassium Chloride Carbon Dioxide Anion Gap BUN Creatinine Est GFR (CKD-EPI)AfAm Est GFR (CKD-EPI)NonAf POC Glucometer 135 Random Glucose Calcium Blood Type Antibody Screen Active Medications Generic Name Dose Route Start Last Admin Trade Name Freq PRN Reason Stop Dose Admin Albuterol/Ipratropium 1 amp 11/15/18 08:00 11/17/18 12:02 Duoneb - NEB 1 amp RQID LUCRECIA Administration Amantadine HCl 100 mg 11/15/18 10:00 11/17/18 11:06 Symmetrel Oral Solution - GT 100 mg BID LUCRECIA Administration Amiodarone HCl 200 mg 11/15/18 10:00 11/17/18 11:05 Cordarone - GT 200 mg DAILY LUCRECIA Administration Carbidopa/Levodopa 2 each 11/15/18 06:00 11/17/18 05:49 Sinemet 25/250 - GT 2 each TID LUCRECIA Administration Collagenase 1 applic 11/15/18 10:00 11/16/18 11:19 Santyl - TP 1 applic DAILY LUCRECIA Administration Protocol Homatropine HBr 1 drop 11/15/18 10:00 11/17/18 10:26 Isopto Homatropine 5% - OD 1 drp QID LUCRECIA Administration Metronidazole 500 mg in 100 mls @ 100 mls/hr 11/15/18 02:00 11/17/18 10:24 Flagyl 500mg Premixed Ivpb - IVPB 100 mls/hr Q8H-IV LUCRECIA Administration Sodium Chloride 250 mls @ 3,000 mls/hr 11/15/18 16:53 Normal Saline - IV 11/16/18 16:53 PRN PRN Hypotension during Dialysis Ceftazidime/Avibactam 0.94 gm/ 100 mls @ 50 mls/hr 11/16/18 23:00 11/17/18 11 :52 Dextrose IVPB 50 mls/hr Q12H [facility]CRECIA Administration Protocol Latanoprost 1 drop 11/15/18 22:00 11/16/18 21:59 Xalatan 0.005% Eye Drops - OU 1 drop HS [facility]CRECIA Administration Metoprolol Tartrate 75 mg 11/15/18 10:00 11/17/18 11:05 Lopressor - GT 75 mg BID [facility] Administration Metoprolol Tartrate 5 mg 11/14/18 23:17 Lopressor Injection - IVPUSH Q4H PRN TACHYCARDIA Pantoprazole Sodium 40 mg 11/15/18 10:00 11/17/18 10:23 Protonix Iv IVPUSH 40 mg DAILY [facility] Administration Tobramycin/Dexamethasone 1 drop 11/15/18 10:00 11/17/18 10:25 Tobradex Ophthalmic Suspension - OU 1 drp BID [facility] Administration ASSESSMENT/PLAN: Mr. Smalls is an 88yo male with Parkinson's, COPD, CHF, HTN, a-fib on Eliquis, respiratory failure with trach and PEG, hx of prostate cancer who presents for abdominal distention and fevers. He was found to be septic 2/2 pneumonia, as well as SBO, and CBD dilation. UA on 11/10/18 resulted in UTI diagnosis. Creatinine has been increasing, pt's family ready to begin dialysis. #[place] 106.5/4.6 Pt family is requesting HD. INR today was 2.25 so will put in line tomorrow if INR is in range then begin HD possibly tomorrow as well. -Albumin administered -vitamin K administered -monitor INR -pt typed and crossed, FFP will be administered during procedure -fluids being held, limiting drips -Nephro following- [place] likely multifactorial -CMP #acute on chronic respiratory failure s/p trach/vent with sepsis 2/2 PNA CXR yesterday following desat showed progressing congestive and infiltrative changes worse on right side. -Tylenol PRN discomfort -relative decreased breath sounds on right side -leukocytosis 16.6 -blood cultures negative -sputum culture Klebsiella, Pseudomonas, Proteus Mirabilus -CT abd/pelvis 11/05/18 showed mod to large pleural effusion on right, moderate on left -continue Ceftazidime/Avibactam and Flagyl (day 9) -ID following -CBC #complicated UTI -galarza in place -continue abx for coverage #acute on chronic diastolic CHF -echo EF 65-70%, no LVH, mild RA dilation, moderate TR, moderate AR, no pericardial effusion -I/O +1100 yesterday -60mg Lasix BID -NS 50mL/hr -EKG 11/08/18: irregular rhythm, HR 98, QTc 589 -monitor QTc and medications which could increase it -CMP #a-fib HR avg 100s -metoprolol -PT/INR 2.59, Eliquis held for procedure -INR ordered pre-procedure #thrombocytopenia Plt 101 -monitor for signs of bleeding -type and cross #SBO, resolved -restarted tube feedings #constipation -2 BM in last 24 hours -miralax #hypoglycemia BG well-controlled 135 today -BGM -SSI #elevated Alk Phos ALT 13, AST 12, Alk Phos 170 -negative FACUNDO, c-ANCA, p-ANCA, DS DNA Ab, GBM Ab, Heparin-induced plt Ab, myeloperoxidase Ab -negative hep B, and hep C, negative hep A IgM -GI following #HTN well-controlled, isolated hypotension readings daily, currently on metoprolol -frequent VS checks #COPD -duo-neb #Parkinson's -continue home meds FEN none monitor lytes tube feedings DVT Ppe SCDs, Eliquis held for elevated PT/INR GI Ppe Protonix DNR Visit type - Emergency Visit Emergency Visit: Yes ED Registration Date: 11/05/18 Care time: The patient presented to the Emergency Department on the above date and was hospitalized for further evaluation of their emergent condition. - New Patient This patient is new to me today: No - Critical Care Critical Care patient: No - Discharge Referral Referred to [facility] Med [facility].C[facility] No ATTENDING PHYSICIAN STATEMENT I saw and evaluated the patient. I reviewed the resident's note and discussed the case with the resident. I agree with the resident's findings and plan as documented. SUBJECTIVE: OBJECTIVE: ASSESSMENT AND PLAN:
[2018-11-17 14:35] VITALS: BMI 30.7
[2018-11-17] MEDS: LATANOPROST 0.005% OPHTH SOLN 2.5ML BOTTLE OU SCH (23:27)
[2018-11-18] MEDS: CARBIDOPA/LEVODOPA 25/250 TABLET (FP) GT SCH ×3 (06:16→22:54)
[2018-11-18 08:12] LABS: BASO % 0.4 % (0-2.0); EOS % 0.7 % (0-4.5); HEMOGLOBIN 7.6 GM/dL (11.7-16.9); MCH 29.1 pg (25.7-33.7); MCHC 31.8 g/dl (32.0-35.9); MEAN CELL VOLUME 91.5 fl (80-96); MEAN PLT VOLUME 9.3 fl (7.5-11.1); NEUT % 82.9 % (42.8-82.8); PLATELET COUNT 105 K/MM3 (134-434); RBC 2.62 M/mm3 (4.00-5.60); RDW 24.4 % (11.9-15.9); WHITE BLOOD COUNT 15.9 K/mm3 (4.0-10.0)
[2018-11-18 08:34] LABS: INR 1.99 (0.83-1.09); PROTHROMBIN TIME (PATIENT) 23.7 SEC (9.7-13.0)
[2018-11-18 08:37] LABS: ACTIVATED PTT 43.2 SECONDS (25.2-36.5)
[2018-11-18 08:40] LABS: ALBUMIN 1.7 g/dl (3.4-5.0); CALCIUM 8.1 mg/dL (8.5-10.1); CREATININE 4.8 mg/dL (0.55-1.3); POTASSIUM 4.1 mmol/L (3.5-5.1); TOT PROT 5.4 g/dl (6.4-8.2)
[2018-11-18 08:41] LABS: BLOOD UREA NITROGEN 118.4 mg/dL (7-18)
[2018-11-18] MEDS: ALBUTEROL SO4 2.5/IPRATROPIUM 0.5 INH SOL 3 ML VIAL.NEB. NEB SCH ×4 (08:45→20:50)
[2018-11-18] MEDS: PANTOPRAZOLE SODIUM 40 MG VIAL IVPUSH SCH (09:12)
[2018-11-18] MEDS: [UNRECOGNIZED DRUG - OTHER] OD SCH ×4 (09:15→23:10)
[2018-11-18] MEDS: TOBRA 0.3%/DEXAMETH 0.1% OPHTHALMIC SUSP 2.5 ML BTL OU SCH ×2 (09:22→23:10)
[2018-11-18] MEDS: AMIODARONE HCL 200 MG TABLET (FP) GT SCH (10:14)
[2018-11-18] MEDS: METOPROLOL TARTRATE 25 MG TABLET (FP) GT SCH ×2 (10:14→22:53)
[2018-11-18] MEDS: AMANTADINE HCL 100MG/10 ML UNIT DOSE CUPS GT SCH ×2 (10:15→22:55)
[2018-11-18] MEDS: CEFTAZIDIME/AVIBACTAM 0.94 GM in DEXTROSE 5%-WATER - 100 ML IVPB SCH (10:57)
[2018-11-18] MEDS ORDERED: FUROSEMIDE 40 MG/4 ML INJECTABLE VIAL IVPUSH SCH (11:30)
[2018-11-18] MEDS: COLLAGENASE CLOSTRIDIUM HIST. 30 GRAMS TUBE TP SCH (12:30)
[2018-11-18] MEDS ORDERED: ALBUMIN HUMAN 25% 100 ML VIAL IVPB SCH ×2 (12:45→20:30)
[2018-11-18] MEDS ORDERED: FUROSEMIDE 40 MG/4 ML INJECTABLE VIAL IVPB SCH ×2 (12:47→20:00)
--- NOTE | 2018-11-18 12:53 | PN ---
Progress Note (short form) - Note Progress Note: Awake and NAD on vent support. AC Mode. No acute events overnight. Intake & Output 11/15/18 11/16/18 11/17/18 11/18/18 23:59 23:59 23:59 23:59 Intake Total 1210 2450 2470 980 Output Total 600 1450 1000 250 Balance 610 1000 1470 730 Weight 202 lb 9.6 oz Last Vital Signs Temp Pulse Resp BP Pulse Ox 97 F L 81 28 H 98/54 L 100 11/18/18 09:11 11/18/18 10:00 11/18/18 10:00 11/18/18 09:11 11/18/18 10:00 Active Medications Albumin Human (Albumin Human 25% -) 25 gm IVPB Q6H [facility] Stop: 11/18/18 18:46 Albuterol/Ipratropium (Duoneb -) 1 amp NEB RQID [facility] Last Admin: 11/18/18 08:45 Dose: 1 amp Amantadine HCl (Symmetrel Oral Solution -) 100 mg GT BID [facility] Last Admin: 11/17/18 23:25 Dose: 100 mg Amiodarone HCl (Cordarone -) 200 mg GT DAILY [facility] Last Admin: 11/17/18 11:05 Dose: 200 mg Carbidopa/Levodopa (Sinemet 25/250 -) 2 each GT TID [facility] Last Admin: 11/18/18 06:16 Dose: 2 each Collagenase (Santyl -) 1 applic TP DAILY [facility]; Protocol Last Admin: 11/17/18 13:00 Dose: 1 applic Furosemide (Lasix Injection -) 80 mg IVPB Q6H [facility] Stop: 11/18/18 17:31 Homatropine HBr (Isopto Homatropine 5% -) 1 drop OD QID [facility] Last Admin: 11/18/18 09:15 Dose: 1 drp Metronidazole (Flagyl 500mg Premixed Ivpb -) 500 mg in 100 mls @ 100 mls/hr IVPB Q8H-IV [facility] Last Admin: 11/18/18 09:21 Dose: 100 mls/hr Sodium Chloride (Normal Saline -) 250 mls @ 3,000 mls/hr IV PRN PRN PRN Reason: Hypotension during Dialysis Stop: 11/16/18 16:53 Ceftazidime/Avibactam 0.94 gm/ (Dextrose) 100 mls @ 50 mls/hr IVPB Q12H [facility]; Protocol Last Admin: 11/18/18 10:57 Dose: 50 mls/hr Latanoprost (Xalatan 0.005% Eye Drops -) 1 drop OU HS [facility] Last Admin: 11/17/18 23:27 Dose: 1 drop Metoprolol Tartrate (Lopressor -) 75 mg GT BID [facility] Last Admin: 11/17/18 23:24 Dose: 75 mg Metoprolol Tartrate (Lopressor Injection -) 5 mg IVPUSH Q4H PRN PRN Reason: TACHYCARDIA Pantoprazole Sodium (Protonix Iv) 40 mg IVPUSH DAILY [facility] Last Admin: 11/18/18 09:12 Dose: 40 mg Tobramycin/Dexamethasone (Tobradex Ophthalmic Suspension -) 1 drop OU BID [facility] Last Admin: 11/18/18 09:22 Dose: 1 drp Constitutional: Yes: Vented, NAD Eyes: Yes: WNL HENT: Yes: WNL Neck: Yes: Supple (trach) Cardiovascular: Yes: Pulse Irregular, S1, S2 Respiratory: Yes: Vented, scattered rhonchi Gastrointestinal: Yes: Normal Bowel Sounds, Soft Extremities: Yes: WNL Edema: No Labs: Laboratory Results - last 24 hr 11/17/18 11/17/18 11/18/18 12:30 21:20 06:40 WBC 15.9 H RBC 2.62 L Hgb 7.6 L Hct 24.0 L MCV 91.5 MCH 29.1 MCHC 31.8 L RDW 24.4 H Plt Count 105 L MPV 9.3 Absolute Neuts (auto) 13.2 H Neutrophils % 82.9 H Lymphocytes % 8.0 Monocytes % 8.0 Eosinophils % 0.7 Basophils % 0.4 Nucleated RBC % 0 PT with INR 26.80 H INR 2.25 H PTT (Actin FS) Sodium Potassium Chloride Carbon Dioxide Anion Gap BUN Creatinine Est GFR (CKD-EPI)AfAm Est GFR (CKD-EPI)NonAf POC Glucometer 129 Random Glucose Calcium Total Bilirubin AST ALT Alkaline Phosphatase Total Protein Albumin 11/18/18 11/18/18 11/18/18 06:40 06:40 10:21 WBC RBC Hgb Hct MCV MCH MCHC RDW Plt Count MPV Absolute Neuts (auto) Neutrophils % Lymphocytes % Monocytes % Eosinophils % Basophils % Nucleated RBC % PT with INR 23.70 H INR 1.99 H PTT (Actin FS) 43.2 H Sodium 143 Potassium 4.1 Chloride 106 Carbon Dioxide 18 L Anion Gap 19 H BUN 118.4 H* Creatinine 4.8 H Est GFR (CKD-EPI)AfAm 11.64 Est GFR (CKD-EPI)NonAf 10.04 POC Glucometer 132 Random Glucose 129 H Calcium 8.1 L Total Bilirubin 1.0 AST 12 L ALT 9 L Alkaline Phosphatase 180 H Total Protein 5.4 L Albumin 1.7 L Problem List - Problems (1) Atrial fibrillation with RVR Code(s): I48.91 - UNSPECIFIED ATRIAL FIBRILLATION (2) Chronic respiratory failure Code(s): J96.10 - CHRONIC RESPIRATORY FAILURE, UNSP W HYPOXIA OR HYPERCAPNIA (3) Sepsis Code(s): A41.9 - SEPSIS, UNSPECIFIED ORGANISM Qualifiers: Sepsis type: sepsis due to unspecified organism Sepsis acute organ dysfunction status: with acute organ dysfunction Severe sepsis acute organ dysfunction type: acute renal failure Acute renal failure type: unspecified Severe sepsis shock status: without septic shock Qualified Code(s): A41.9 - Sepsis, unspecified organism; R65.20 - Severe sepsis without septic shock; N17.9 - Acute kidney failure, unspecified (4) Parkinson disease Code(s): G20 - PARKINSON'S DISEASE (5) Pneumonitis Code(s): J18.9 - PNEUMONIA, UNSPECIFIED ORGANISM Assessment/Plan Chronic Respiratory Failure Pneumonia Severe Sepsis Acute Kidney Injury Lactic Acidosis +Troponins likely Demand Ischemia Atrial Fibrillation COPD HTN Parkinsons Disease - antibiotics per ID - monitor urine output, creatinine - rate control - continue anticoagulation - enteral feeds - DVT/GI prophylaxis - continue discussions regarding goals of care Dr Nelson
--- NOTE | 2018-11-18 13:57 | PN ---
Teaching Attending Note Name of Resident: Renate Montilla ATTENDING PHYSICIAN STATEMENT I saw and evaluated the patient. I reviewed the resident's note and discussed the case with the resident. I agree with the resident's findings and plan as documented. SUBJECTIVE:resting comfortable OBJECTIVE: Last Vital Signs Temp Pulse Resp BP Pulse Ox 97 F L 81 28 H 98/54 L 100 11/18/18 09:11 11/18/18 10:00 11/18/18 10:00 11/18/18 09:11 11/18/18 10:00 Intake & Output 11/15/18 11/16/18 11/17/18 11/18/18 23:59 23:59 23:59 23:59 Intake Total 1210 2450 2470 980 Output Total 600 1450 1000 250 Balance 610 1000 1470 730 Weight 202 lb 9.6 oz General NAD CV S1 S2 tachy Lungs decreased breath sounds anteriorly Abdomen soft diffusely tender, slight distended. tympanic extremities 2+ pitting edema UE>LE, hemorrhagic bullae noted on B/L Hands ASSESSMENT AND PLAN: 88 year old male with Parkinson's Disease, COPD, HTN, Atrial Fibrillation, CRF s /p Trach/PEG, presented with fevers/chills, abdominal pain/distension, found to have SBO and sepsis secondary to Pneumonia. 1. Acute on Chronic Respiratory Failure and Severe Sepsis secondary to Pneumonia. s/p trach. vent dependent. +pseudomonas. on ceftazidime and flagyl. ID and pulmonary on board 2. [place] due to sepsis/ATN vs contrast induced nephropathy- UOP has improved however is volume overloaded. nephro to speak with family again today regarding HD. vascular surgery on standby for possible line placement. cont wtih lasix IV. albumin to be given as well 3. Volume overload- refusing HD at this time. cont with lasix and albumin 4. Elevated INR- unknown cause. vit K x3 given. INR trending down. HIT panel pending. holding heparin and eliquis. heme on board 5. Dilated CBD/Elevated LFT- possibly due to sepsis and shock liver. LFT improving. GI on board 6. Atrial fibrillation with RVR - resumed on Metoprolol (at increased dose of 75mg BID) and Amiodarone. Transitioned from Heparin drip to Eliquis (now held due to elevated INR and Thrombocytopenia). 7. hemorrhagic bullae- noted on hands. derm consulted 8. Elevated troponin - sec to demand due to sepsis. TnI max 0.07. No further work-up currently. Can follow with cardiology as out-patient. 9. Parkinson's Disease - Continue Sinemet/Amantadine. 10. HTN - BP borderline. Resumed on Metoprolol. 11. Dysphagia s/p PEG - SBO resolved. PEG feeds resumed. 12, Thrombocytopenia- no signs of bleeding. Hematology on board 13. DVT Px - Eliquis held. SCD 14. DNR. poor prognosis. palliative care. possible LTACH referral
--- NOTE | 2018-11-18 14:14 | PN ---
Physical Exam: SUBJECTIVE: Patient seen and examined. Pt is non-verbal and tracheostomy in place. OBJECTIVE: I/O net +1470 yesterday, increased urine output Vital Signs Period Temp Pulse Resp BP Sys/Cope Pulse Ox Last 24 Hr 96.7 F-98.2 F 80-104 12-32 98-150/46-110 97-100 GENERAL: The patient is awake and responsive to auditory stimuli. Appears in no distress. HEAD: Normal with no signs of trauma. EYES: Pupils reactive to light R>L, extraocular movements intact, sclera anicteric, conjunctiva clear. No ptosis. ENT: Ears normal, nares patent, moist mucous membranes. NECK: Tracheostomy in place, limited ROM LUNGS: Decreased breath sounds, especially right lower lobe. no accessory muscle use. HEART: Regular rate and rhythm, S1, S2 without murmur, rub or gallop. ABDOMEN: Moderate distention, tender to deep palpation, hypoactive bowel sounds EXTREMITIES: +2 pitting edema in hands, +2 pitting edema of feet, warm to touch NEUROLOGICAL: can move fingers and toes, follows voices with eyes and head PSYCH: unable to assess SKIN: Warm, dry, significant ecchymosis noted on both hands, bullae present on bilateral dorsal surfaces, with open hemorrhagic wound on right hand Laboratory Results - last 24 hr 11/14/18 11/17/18 11/18/18 12:20 21:20 06:40 WBC 15.9 H RBC 2.62 L Hgb 7.6 L Hct 24.0 L MCV 91.5 MCH 29.1 MCHC 31.8 L RDW 24.4 H Plt Count 105 L MPV 9.3 Absolute Neuts (auto) 13.2 H Neutrophils % 82.9 H Lymphocytes % 8.0 Monocytes % 8.0 Eosinophils % 0.7 Basophils % 0.4 Nucleated RBC % 0 PT with INR INR PTT (Actin FS) Sodium Potassium Chloride Carbon Dioxide Anion Gap BUN Creatinine Est GFR (CKD-EPI)AfAm Est GFR (CKD-EPI)NonAf POC Glucometer 129 Random Glucose Calcium Total Bilirubin AST ALT Alkaline Phosphatase Total Protein Albumin Heparin-Ind Plt Ab Scrn 0.347 11/18/18 11/18/18 11/18/18 06:40 06:40 10:21 WBC RBC Hgb Hct MCV MCH MCHC RDW Plt Count MPV Absolute Neuts (auto) Neutrophils % Lymphocytes % Monocytes % Eosinophils % Basophils % Nucleated RBC % PT with INR 23.70 H INR 1.99 H PTT (Actin FS) 43.2 H Sodium 143 Potassium 4.1 Chloride 106 Carbon Dioxide 18 L Anion Gap 19 H BUN 118.4 H* Creatinine 4.8 H Est GFR (CKD-EPI)AfAm 11.64 Est GFR (CKD-EPI)NonAf 10.04 POC Glucometer 132 Random Glucose 129 H Calcium 8.1 L Total Bilirubin 1.0 AST 12 L ALT 9 L Alkaline Phosphatase 180 H Total Protein 5.4 L Albumin 1.7 L Heparin-Ind Plt Ab Scrn Active Medications Generic Name Dose Route Start Last Admin Trade Name Freq PRN Reason Stop Dose Admin Albumin Human 25 gm 11/18/18 12:45 Albumin Human 25% - IVPB 11/18/18 18:46 Q6H [facility] Albuterol/Ipratropium 1 amp 11/15/18 08:00 11/18/18 08:45 Duoneb - NEB 1 amp RQID [facility] Administration Amantadine HCl 100 mg 11/15/18 10:00 11/18/18 10:15 Symmetrel Oral Solution - GT Not Given BID [facility] Amiodarone HCl 200 mg 11/15/18 10:00 11/18/18 10:14 Cordarone - GT Not Given DAILY [facility] Carbidopa/Levodopa 2 each 11/15/18 06:00 11/18/18 13:21 Sinemet 25/250 - GT Not Given TID [facility] Collagenase 1 applic 11/15/18 10:00 11/18/18 12:30 Santyl - TP 1 applic DAILY [facility] Administration Protocol Furosemide 80 mg 11/18/18 12:47 11/18/18 13:52 Lasix Injection - IVPB 11/18/18 17:31 80 mg Q6H [facility] Administration Homatropine HBr 1 drop 11/15/18 10:00 11/18/18 13:20 Isopto Homatropine 5% - OD 1 drop QID [facility] Administration Metronidazole 500 mg in 100 mls @ 100 mls/hr 11/15/18 02:00 11/18/18 09:21 Flagyl 500mg Premixed Ivpb - IVPB 100 mls/hr Q8H-IV [facility] Administration Sodium Chloride 250 mls @ 3,000 mls/hr 11/15/18 16:53 Normal Saline - IV 11/16/18 16:53 PRN PRN Hypotension during Dialysis Ceftazidime/Avibactam 0.94 gm/ 100 mls @ 50 mls/hr 11/16/18 23:00 11/18/18 10 :57 Dextrose IVPB 50 mls/hr Q12H [facility] Administration Protocol Latanoprost 1 drop 11/15/18 22:00 11/17/18 23:27 Xalatan 0.005% Eye Drops - OU 1 drop HS [facility] Administration Metoprolol Tartrate 75 mg 11/15/18 10:00 11/18/18 10:14 Lopressor - GT Not Given BID [facility] Metoprolol Tartrate 5 mg 11/14/18 23:17 Lopressor Injection - IVPUSH Q4H PRN [facility] Pantoprazole Sodium 40 mg 11/15/18 10:00 11/18/18 09:12 Protonix Iv IVPUSH 40 mg DAILY [facility] Administration Tobramycin/Dexamethasone 1 drop 11/15/18 10:00 11/18/18 09:22 Tobradex Ophthalmic Suspension - OU 1 drp BID [facility] Administration ASSESSMENT/PLAN: Mr. Smalls is an 88yo male with Parkinson's, COPD, CHF, HTN, a-fib on Eliquis, respiratory failure with trach and PEG, hx of prostate cancer who presents for abdominal distention and fevers. He was found to be septic 2/2 pneumonia, as well as SBO, and CBD dilation. UA on 11/10/18 resulted in UTI diagnosis. Creatinine has been increasing, pt's family ready to begin dialysis. #[place] 118.4/4.8 Pt's family is requesting to postpone HD since urine output is increasing - I/O +1470 net yesterday, urine output is increasing however -Albumin administered, day 2 -vitamin K administered, day 2 -monitor INR -pt typed and crossed, FFP will be administered during procedure -fluids being held, limiting drips -Nephro following- spoke with family today -CMP #acute on chronic respiratory failure s/p trach/vent with sepsis 2/2 PNA CXR today shows improved congestion in right lung and slight increase in the left lung -Tylenol PRN discomfort -relative decreased breath sounds on right side -leukocytosis 15.9 -blood cultures negative -sputum culture positive Klebsiella, Pseudomonas, Proteus Mirabilus -CT abd/pelvis 11/05/18 showed mod to large pleural effusion on right, moderate on left -continue Ceftazidime/Avibactam and Flagyl (day 10) -ID following -CBC #complicated UTI -galarza in place -continue abx for coverage #acute on chronic diastolic CHF -echo EF 65-70%, no LVH, mild RA dilation, moderate TR, moderate AR, no pericardial effusion -I/O +1470 net yesterday -80mg Lasix BID today, reassess -no extra fluids -CMP #a-fib HR avg 100s -metoprolol -PT/INR 1.99, Eliquis held for procedure -INR ordered pre-procedure -EKG 11/08/18: irregular rhythm, HR 98, QTc 589 -monitor QTc and medications which could increase it #thrombocytopenia Plt 105 -monitor for signs of bleeding -type and cross done #SBO, resolved -tube feedings held for fluid overload #constipation -watery brown and black stool per nurse -miralax -FOBT #hypoglycemia BG well-controlled 132 today -BGM -SSI #elevated Alk Phos ALT 9, AST 12, Alk Phos 180 -negative FACUNDO, c-ANCA, p-ANCA, DS DNA Ab, GBM Ab, Heparin-induced plt Ab, myeloperoxidase Ab -negative hep B, and hep C, negative hep A IgM -GI following #HTN well-controlled, isolated hypotension readings daily, currently on metoprolol -frequent VS checks #COPD -duo-neb #Parkinson's -continue home meds FEN none monitor lytes tube feedings held DVT Ppe SCDs, Eliquis held for elevated PT/INR GI Ppe Protonix DNR Visit type - Emergency Visit Emergency Visit: Yes ED Registration Date: 11/05/18 Care time: The patient presented to the Emergency Department on the above date and was hospitalized for further evaluation of their emergent condition. - New Patient This patient is new to me today: No - Critical Care Critical Care patient: No - Discharge Referral Referred to [facility] Med [facility].C[facility] No ATTENDING PHYSICIAN STATEMENT I saw and evaluated the patient. I reviewed the resident's note and discussed the case with the resident. I agree with the resident's findings and plan as documented. SUBJECTIVE: OBJECTIVE: ASSESSMENT AND PLAN:
--- NOTE | 2018-11-18 15:44 | PN ---
Progress Note (short form) - Note Progress Note: NAD opens eyes on vent Vital Signs Period Temp Pulse Resp BP Sys/Cope Pulse Ox Last 24 Hr 96.7 F-97.5 F 80-104 12-32 98-150/46-110 97-100 trach to vent cor-rrr lungs decreased bs at bases abd soft, +GT ext +edema hands/legs galarza no central lines CBC, BMP 11/18/18 06:40 11/18/18 06:40 Microbiology 11/08/18 17:00 Blood - Peripheral Venous Blood Culture - Final NO GROWTH AFTER 5 DAYS INCUBATION 11/08/18 16:35 Blood - Peripheral Venous Blood Culture - Final NO GROWTH AFTER 5 DAYS INCUBATION 11/05/18 15:00 Blood - Peripheral Venous Blood Culture - Final NO GROWTH AFTER 5 DAYS INCUBATION 11/05/18 14:30 Blood - Peripheral Venous Blood Culture - Final NO GROWTH AFTER 5 DAYS INCUBATION 11/06/18 13:00 Sputum - Endotrachea Suction/Ventilator Gram Stain - Final 11/06/18 13:00 Sputum - Endotrachea Suction/Ventilator Sputum Culture - Final Klebsiella Pneumoniae - Esbl Pseudomonas Aeruginosa Proteus Mirabilus - Esbl Produ 11/06/18 18:00 Urine For Antigen Detection Legionella Antigen - Final 11/06/18 18:00 Urine For Antigen Detection Streptococcus pneumoniae Antigen (M - Final 11/05/18 15:00 Urine - Urine - Catheterized Urine Culture - Final Yeast Like Organism a/p sepsis-day #10 ceftaz -avibactam to continue, decrease dose for worsening renal function- suspect cxray findings are partly volume overload chronic resp failure worsening renal failure with anasarca- per renal parkinson's disease overall prognosis is poor strict contact isolation for resistant GNR Problem List - Problems (1) Fever Code(s): R50.9 - FEVER, UNSPECIFIED (2) SBO (small bowel obstruction) Code(s): K56.609 - UNSP INTESTNL OBST, UNSP TO PARTIAL VERSUS COMPLETE OBST (3) Pneumonia Code(s): J18.9 - PNEUMONIA, UNSPECIFIED ORGANISM Qualifiers: Pneumonia type: due to unspecified organism Laterality: right Lung location: lower lobe of lung Qualified Code(s): J18.1 - Lobar pneumonia, unspecified organism (4) Chronic respiratory failure Code(s): J96.10 - CHRONIC RESPIRATORY FAILURE, UNSP W HYPOXIA OR HYPERCAPNIA (5) MRSA (methicillin resistant Staphylococcus aureus) colonization Code(s): Z22.322 - CARRIER OR SUSPECTED CARRIER OF METHICILLIN RESIS STAPH
--- NOTE | 2018-11-18 15:51 | PN ---
Progress Note, Physician History of Present Illness: Pt seen and examined at bedside. He is making urine. He remains mechanically ventilated. - Current Medication List Current Medications: Active Medications Albumin Human (Albumin Human 25% -) 25 gm IVPB Q6H [facility] Stop: 11/18/18 18:46 Last Admin: 11/18/18 14:37 Dose: 25 gm Albuterol/Ipratropium (Duoneb -) 1 amp NEB RQID [facility] Last Admin: 11/18/18 12:30 Dose: 1 amp Amantadine HCl (Symmetrel Oral Solution -) 100 mg GT BID [facility] Last Admin: 11/18/18 10:15 Dose: Not Given Amiodarone HCl (Cordarone -) 200 mg GT DAILY [facility] Last Admin: 11/18/18 10:14 Dose: Not Given Carbidopa/Levodopa (Sinemet 25/250 -) 2 each GT TID [facility] Last Admin: 11/18/18 13:21 Dose: Not Given Collagenase (Santyl -) 1 applic TP DAILY [facility]; Protocol Last Admin: 11/18/18 12:30 Dose: 1 applic Furosemide (Lasix Injection -) 80 mg IVPB Q6H [facility] Stop: 11/18/18 17:31 Last Admin: 11/18/18 13:52 Dose: 80 mg Homatropine HBr (Isopto Homatropine 5% -) 1 drop OD QID [facility] Last Admin: 11/18/18 13:20 Dose: 1 drop Sodium Chloride (Normal Saline -) 250 mls @ 3,000 mls/hr IV PRN PRN PRN Reason: Hypotension during Dialysis Stop: 11/16/18 16:53 Ceftazidime/Avibactam 0.94 gm/ (Dextrose) 100 mls @ 50 mls/hr IVPB DAILY [facility]; Protocol Latanoprost (Xalatan 0.005% Eye Drops -) 1 drop OU HS [facility] Last Admin: 11/17/18 23:27 Dose: 1 drop Metoprolol Tartrate (Lopressor -) 75 mg GT BID [facility] Last Admin: 11/18/18 10:14 Dose: Not Given Metoprolol Tartrate (Lopressor Injection -) 5 mg IVPUSH Q4H PRN PRN Reason: TACHYCARDIA Pantoprazole Sodium (Protonix Iv) 40 mg IVPUSH DAILY [facility] Last Admin: 11/18/18 09:12 Dose: 40 mg Tobramycin/Dexamethasone (Tobradex Ophthalmic Suspension -) 1 drop OU BID [facility] Last Admin: 11/18/18 09:22 Dose: 1 drp - Objective Vital Signs: Vital Signs Temperature 98.1 F 11/18/18 14:00 Pulse Rate 105 H 11/18/18 14:00 Respiratory Rate 33 H 11/18/18 14:00 Blood Pressure 107/86 11/18/18 14:00 O2 Sat by Pulse Oximetry (%) 100 11/18/18 10:00 Constitutional: Yes: Calm Eyes: Yes: Conjunctiva Clear HENT: Yes: Atraumatic Neck: Yes: Supple Cardiovascular: Yes: S1, S2 Respiratory: Yes: Intubated, Mechanically Ventilated Gastrointestinal: Yes: Soft, Other (peg tube) Genitourinary: Yes: Salguero Present Musculoskeletal: Yes: Muscle Weakness Edema: Yes Edema: LLE: 1+, RLE: 1+ Integumentary: Yes: WNL Neurological: Yes: Confusion Labs: CBC, BMP 11/18/18 06:40 11/18/18 06:40 INR, PTT INR 1.99 (0.83-1.09) H 11/18/18 06:40 Fibrinogen 467.0 mg/dL (238-498) 11/15/18 06:50 - ....Imaging Chest X-ray: Report Reviewed Problem List - Problems (1) [place] (acute kidney injury) Code(s): N17.9 - ACUTE KIDNEY FAILURE, UNSPECIFIED (2) Atrial fibrillation with RVR Code(s): I48.91 - UNSPECIFIED ATRIAL FIBRILLATION (3) Ileus Code(s): K56.7 - ILEUS, UNSPECIFIED (4) Sepsis Code(s): A41.9 - SEPSIS, UNSPECIFIED ORGANISM Qualifiers: Sepsis type: sepsis due to unspecified organism Sepsis acute organ dysfunction status: with acute organ dysfunction Severe sepsis acute organ dysfunction type: acute renal failure Acute renal failure type: unspecified Severe sepsis shock status: without septic shock Qualified Code(s): A41.9 - Sepsis, unspecified organism; R65.20 - Severe sepsis without septic shock; N17.9 - Acute kidney failure, unspecified Assessment/Plan Current Medications Generic Name Dose Route Start Last Admin Trade Name Freq PRN Reason Stop Dose Admin Albumin Human 25 gm 11/18/18 12:45 11/18/18 14:37 Albumin Human 25% - IVPB 11/18/18 18:46 25 gm Q6H [facility] Administration Albuterol/Ipratropium 1 amp 11/15/18 08:00 11/18/18 12:30 Duoneb - NEB 1 amp RQID [facility] Administration Amantadine HCl 100 mg 11/15/18 10:00 11/18/18 10:15 Symmetrel Oral Solution - GT Not Given BID [facility] Amiodarone HCl 200 mg 11/15/18 10:00 11/18/18 10:14 Cordarone - GT Not Given DAILY [facility] Carbidopa/Levodopa 2 each 11/15/18 06:00 11/18/18 13:21 Sinemet 25/250 - GT Not Given TID [facility] Collagenase 1 applic 11/15/18 10:00 11/18/18 12:30 Santyl - TP 1 applic DAILY [facility] Administration Protocol Furosemide 80 mg 11/18/18 12:47 11/18/18 13:52 Lasix Injection - IVPB 11/18/18 17:31 80 mg Q6H [facility] Administration Homatropine HBr 1 drop 11/15/18 10:00 11/18/18 13:20 Isopto Homatropine 5% - OD 1 drop QID [facility] Administration Sodium Chloride 250 mls @ 3,000 mls/hr 11/15/18 16:53 Normal Saline - IV 11/16/18 16:53 PRN PRN Hypotension during Dialysis Ceftazidime/Avibactam 0.94 gm/ 100 mls @ 50 mls/hr 11/19/18 10:00 Dextrose IVPB DAILY [facility] Protocol Latanoprost 1 drop 11/15/18 22:00 11/17/18 23:27 Xalatan 0.005% Eye Drops - OU 1 drop HS [facility] Administration Metoprolol Tartrate 75 mg 11/15/18 10:00 11/18/18 10:14 Lopressor - GT Not Given BID [facility] Metoprolol Tartrate 5 mg 11/14/18 23:17 Lopressor Injection - IVPUSH Q4H PRN [facility] Pantoprazole Sodium 40 mg 11/15/18 10:00 11/18/18 09:12 Protonix Iv IVPUSH 40 mg DAILY [facility] Administration Tobramycin/Dexamethasone 1 drop 11/15/18 10:00 11/18/18 09:22 Tobradex Ophthalmic Suspension - OU 1 drp BID [facility] Administration Impression: 1. [place] 2. sepsis 3. PNA 4. SBO 5. Parkinson's 6. a-fib 7. chronic resp failure 8. severe sepsis 9. lactic acidosis 10. copd 11. hx of htn Plan - called and discussed treatment plan with his son Beny, we discussed HD therapy and medical therapy. He would like to hold off hd and cont medical therapy for now. - will give lasix and albumin - pt is making urine - will try to make net negative - cont vent support
[2018-11-18 18:31] LABS: HEMATOCRIT 25.1 % (35.4-49); HEMOGLOBIN 7.9 GM/dL (11.7-16.9); MCH 28.8 pg (25.7-33.7); MCHC 31.6 g/dl (32.0-35.9); MEAN CELL VOLUME 91.1 fl (80-96); MEAN PLT VOLUME 9.5 fl (7.5-11.1); PLATELET COUNT 109 K/MM3 (134-434); RBC 2.75 M/mm3 (4.00-5.60); RDW 24.2 % (11.9-15.9); WHITE BLOOD COUNT 19.7 K/mm3 (4.0-10.0)
[2018-11-18] MEDS ORDERED: PT OWN MED DRAWER 7, Y5N ONE (21:54)
[2018-11-18] MEDS: LATANOPROST 0.005% OPHTH SOLN 2.5ML BOTTLE OU SCH (23:10)
[2018-11-19] MEDS: CARBIDOPA/LEVODOPA 25/250 TABLET (FP) GT SCH ×3 (05:14→16:52)
--- NOTE | 2018-11-19 06:48 | PN ---
Physical Exam: SUBJECTIVE: Patient seen and examined. Pt is non-verbal and tracheostomy in place. OBJECTIVE: Vital Signs Period Temp Pulse Resp BP Sys/Cope Pulse Ox Last 24 Hr 97 F-98.1 F 80-105 12-33 98-124/46-86 100-100 GENERAL: The patient is awake and responsive to auditory stimuli. Appears in no distress. HEAD: Normal with no signs of trauma. EYES: Pupils reactive to light L>R, extraocular movements intact, sclera anicteric, conjunctiva clear. No ptosis. ENT: Ears normal, nares patent, moist mucous membranes. NECK: Tracheostomy in place, limited ROM LUNGS: Decreased breath sounds, especially right lower lobe. no accessory muscle use. HEART: Regular rate and rhythm, S1, S2 without murmur, rub or gallop. ABDOMEN: Moderate distention, tender to deep palpation, hypoactive bowel sounds EXTREMITIES: +2 pitting edema in hands, +2 pitting edema of feet, warm to touch NEUROLOGICAL: can move fingers and toes, follows voices with eyes and head PSYCH: unable to assess SKIN: Warm, dry, significant ecchymosis noted on both hands, bullae present on bilateral dorsal surfaces, with open hemorrhagic wound on right hand Laboratory Results - last 24 hr 11/14/18 11/18/18 11/18/18 12:20 06:40 06:40 WBC 15.9 H RBC 2.62 L Hgb 7.6 L Hct 24.0 L MCV 91.5 MCH 29.1 MCHC 31.8 L RDW 24.4 H Plt Count 105 L MPV 9.3 Absolute Neuts (auto) 13.2 H Neutrophils % 82.9 H Lymphocytes % 8.0 Monocytes % 8.0 Eosinophils % 0.7 Basophils % 0.4 Nucleated RBC % 0 PT with INR INR PTT (Actin FS) Sodium 143 Potassium 4.1 Chloride 106 Carbon Dioxide 18 L Anion Gap 19 H BUN 118.4 H* Creatinine 4.8 H Est GFR (CKD-EPI)AfAm 11.64 Est GFR (CKD-EPI)NonAf 10.04 POC Glucometer Random Glucose 129 H Calcium 8.1 L Total Bilirubin 1.0 AST 12 L ALT 9 L Alkaline Phosphatase 180 H Total Protein 5.4 L Albumin 1.7 L Heparin-Ind Plt Ab Scrn 0.347 11/18/18 11/18/18 11/18/18 06:40 10:21 18:00 WBC 19.7 H RBC 2.75 L Hgb 7.9 L Hct 25.1 L MCV 91.1 MCH 28.8 MCHC 31.6 L RDW 24.2 H Plt Count 109 L MPV 9.5 Absolute Neuts (auto) Neutrophils % Lymphocytes % Monocytes % Eosinophils % Basophils % Nucleated RBC % PT with INR 23.70 H INR 1.99 H PTT (Actin FS) 43.2 H Sodium Potassium Chloride Carbon Dioxide Anion Gap BUN Creatinine Est GFR (CKD-EPI)AfAm Est GFR (CKD-EPI)NonAf POC Glucometer 132 Random Glucose Calcium Total Bilirubin AST ALT Alkaline Phosphatase Total Protein Albumin Heparin-Ind Plt Ab Scrn 11/19/18 00:36 WBC RBC Hgb Hct MCV MCH MCHC RDW Plt Count MPV Absolute Neuts (auto) Neutrophils % Lymphocytes % Monocytes % Eosinophils % Basophils % Nucleated RBC % PT with INR INR PTT (Actin FS) Sodium Potassium Chloride Carbon Dioxide Anion Gap BUN Creatinine Est GFR (CKD-EPI)AfAm Est GFR (CKD-EPI)NonAf POC Glucometer 98 Random Glucose Calcium Total Bilirubin AST ALT Alkaline Phosphatase Total Protein Albumin Heparin-Ind Plt Ab Scrn Active Medications Generic Name Dose Route Start Last Admin Trade Name Freq PRN Reason Stop Dose Admin Albuterol/Ipratropium 1 amp 11/15/18 08:00 11/18/18 20:50 Duoneb - NEB 1 amp RQID LUCRECIA Administration Amantadine HCl 100 mg 11/15/18 10:00 11/18/18 22:55 Symmetrel Oral Solution - GT 100 mg BID LUCRECIA Administration Amiodarone HCl 200 mg 11/15/18 10:00 11/18/18 10:14 Cordarone - GT Not Given DAILY LUCRECIA Carbidopa/Levodopa 2 each 11/15/18 06:00 11/19/18 05:14 Sinemet 25/250 - GT 2 each TID LUCRECIA Administration Collagenase 1 applic 11/15/18 10:00 11/18/18 12:30 Santyl - TP 1 applic DAILY LUCRECIA Administration Protocol Homatropine HBr 1 drop 11/15/18 10:00 11/18/18 23:10 Isopto Homatropine 5% - OD 1 drop QID [facility] Administration Sodium Chloride 250 mls @ 3,000 mls/hr 11/15/18 16:53 Normal Saline - IV 11/16/18 16:53 PRN PRN Hypotension during Dialysis Ceftazidime/Avibactam 0.94 gm/ 100 mls @ 50 mls/hr 11/19/18 10:00 Dextrose IVPB DAILY [facility] Protocol Latanoprost 1 drop 11/15/18 22:00 11/18/18 23:10 Xalatan 0.005% Eye Drops - OU 1 drop HS [facility]CRECIA Administration Metoprolol Tartrate 75 mg 11/15/18 10:00 11/18/18 22:53 Lopressor - GT 75 mg BID LUCRECIA Administration Metoprolol Tartrate 5 mg 11/14/18 23:17 Lopressor Injection - IVPUSH Q4H PRN TACHYCARDIA Pantoprazole Sodium 40 mg 11/15/18 10:00 11/18/18 09:12 Protonix Iv IVPUSH 40 mg DAILY [facility] Administration Tobramycin/Dexamethasone 1 drop 11/15/18 10:00 11/18/18 23:10 Tobradex Ophthalmic Suspension - OU 1 drp BID LUCRECIA Administration ASSESSMENT/PLAN: Mr. Smalls is an 88yo male with Parkinson's, COPD, CHF, HTN, a-fib on Eliquis, respiratory failure with trach and PEG, hx of prostate cancer who presents for abdominal distention and fevers. He was found to be septic 2/2 pneumonia, as well as SBO, and CBD dilation. UA on 11/10/18 resulted in UTI diagnosis. Creatinine has been increasing, pt's family ready to begin dialysis. #[place] 126.4/5.1 - Decreased urine output, worsening kidney function -Albumin administered, day 3 -vitamin K administered, day 3 -monitor INR -pt typed and crossed -central line placed for dialysis -plan to remove 2kg of fluid with HD -fluids being held, limiting drips -Nephro following- spoke with family today -CMP #acute on chronic respiratory failure s/p trach/vent with sepsis 2/2 PNA CXR yesterday shows improved congestion in right lung and slight increase in the left lung -Tylenol PRN discomfort -relative decreased breath sounds on right side -leukocytosis 14.7 -blood cultures negative -sputum culture positive Klebsiella, Pseudomonas, Proteus Mirabilus -CT abd/pelvis 11/05/18 showed mod to large pleural effusion on right, moderate on left -continue Ceftazidime/Avibactam and Flagyl (day 11) -ID following -CBC #complicated UTI -galarza in place -continue abx for coverage #acute on chronic diastolic CHF -echo EF 65-70%, no LVH, mild RA dilation, moderate TR, moderate AR, no pericardial effusion -I/O +445 yesterday -no lasix today -no extra fluids -CMP #paroxysmal a-fib not tachy -metoprolol -INR 2.04, Eliquis held for procedure -EKG 11/08/18: irregular rhythm, HR 98, QTc 589 -monitor QTc and medications which could increase it #thrombocytopenia Plt 95 -monitor for signs of bleeding -type and cross done #SBO, resolved -tube feedings held yesterday for small amount of vomiting x2, but resumed today #constipation -watery brown and black stool per nurse -miralax -FOBT #hypoglycemia BG 90s-80s, lower than previous days but tube feedings were held for a day -BGM -SSI #elevated Alk Phos ALT 9, AST 12, Alk Phos 180 -negative FACUNDO, c-ANCA, p-ANCA, DS DNA Ab, GBM Ab, Heparin-induced plt Ab, myeloperoxidase Ab -negative hep B, and hep C, negative hep A IgM -GI following #HTN well-controlled, isolated hypotension readings daily, currently on metoprolol -frequent VS checks #decubitus ulcer -santyl #COPD RR in 20s #Parkinson's -continue home meds FEN none monitor lytes tube feedings held DVT Ppe SCDs, Eliquis 2.5mg BID- resumed for evening dose GI Ppe Protonix DNR Visit type - Emergency Visit Emergency Visit: Yes ED Registration Date: 11/05/18 Care time: The patient presented to the Emergency Department on the above date and was hospitalized for further evaluation of their emergent condition. - New Patient This patient is new to me today: No - Critical Care Critical Care patient: No - Discharge Referral Referred to [facility] Med P.C.: No ATTENDING PHYSICIAN STATEMENT I saw and evaluated the patient. I reviewed the resident's note and discussed the case with the resident. I agree with the resident's findings and plan as documented. SUBJECTIVE: OBJECTIVE: ASSESSMENT AND PLAN:
[2018-11-19 07:38] LABS: BASO % 0.3 % (0-2.0); EOS % 0.6 % (0-4.5); HEMOGLOBIN 7.2 GM/dL (11.7-16.9); LYMPH % 8.1 % (8-40); MCHC 31.3 g/dl (32.0-35.9); MEAN CELL VOLUME 92.6 fl (80-96); MEAN PLT VOLUME 9.2 fl (7.5-11.1); MONO % 6.7 % (3.8-10.2); NEUT % 84.3 % (42.8-82.8); PLATELET COUNT 95 K/MM3 (134-434); RBC 2.49 M/mm3 (4.00-5.60); RDW 24.4 % (11.9-15.9); WHITE BLOOD COUNT 14.7 K/mm3 (4.0-10.0)
[2018-11-19] MEDS: ALBUTEROL SO4 2.5/IPRATROPIUM 0.5 INH SOL 3 ML VIAL.NEB. NEB SCH ×4 (07:45→20:30)
[2018-11-19 08:07] LABS: ALK PHOS 138 U/L (45-117); ANION GAP 19 MMOL/L (8-16); BILIRUBIN,TOTAL 1.5 mg/dL (0.2-1); CALCIUM 8.5 mg/dL (8.5-10.1); CHLORIDE 104 mmol/L (98-107); CO2 19 mmol/L (21-32); CREATININE 5.1 mg/dL (0.55-1.3); GLUCOSE,RANDOM 107 mg/dL (74-106); POTASSIUM 4.4 mmol/L (3.5-5.1); SGOT/AST 9 U/L (15-37); SGPT/ALT < 6 U/L (13-61); SODIUM 142 mmol/L (136-145); TOT PROT 5.6 g/dl (6.4-8.2)
[2018-11-19 09:10] LABS: BLOOD UREA NITROGEN 126.4 mg/dL (7-18)
[2018-11-19 09:53] LABS: ANISOCYTOSIS 2+; MACROCYTOSIS 0; PLATELET ESTIMATE DECREASED; ROULEAU 2+
--- NOTE | 2018-11-19 10:39 | PN ---
Teaching Attending Note Name of Resident: Renate Montilla ATTENDING PHYSICIAN STATEMENT I saw and evaluated the patient. I reviewed the resident's note and discussed the case with the resident. I agree with the resident's findings and plan as documented. SUBJECTIVE:resting comfortable OBJECTIVE: Last Vital Signs Temp Pulse Resp BP Pulse Ox 98.3 F 88 23 H 99/67 100 11/19/18 06:00 11/19/18 06:00 11/19/18 08:22 11/19/18 06:00 11/18/18 21:37 Intake & Output 11/16/18 11/17/18 11/18/18 11/19/18 23:59 23:59 23:59 23:59 Intake Total 2450 2470 1345 150 Output Total 1450 1000 900 300 Balance 1000 1470 445 -150 General NAD CV S1 S2 tachy Lungs decreased breath sounds anteriorly Abdomen soft diffusely tender, slight distended. tympanic extremities 2+ pitting edema UE>LE, hemorrhagic bullae noted on B/L Hands ASSESSMENT AND PLAN: 88 year old male with Parkinson's Disease, COPD, HTN, Atrial Fibrillation, CRF s /p Trach/PEG, presented with fevers/chills, abdominal pain/distension, found to have SBO and sepsis secondary to Pneumonia. 1. Acute on Chronic Respiratory Failure and Severe Sepsis secondary to Pneumonia. s/p trach. vent dependent. +pseudomonas. on ceftazidime and flagyl. ID and pulmonary on board 2. [place] due to sepsis/ATN vs contrast induced nephropathy- UOP lower over past 24H. plan for HD today. surgical PA to place shiley and HD for today with plan for volume removal. nephro on board 3. Volume overload- plan for HD today 4. anemia- likely combination of chronic disease. no obvious signs of bleeding. will give 1 PRBC with HD. monitor Hgb. 5. Elevated INR- unknown cause. vit K x3 given. INR trending down. HIT panel pending. holding heparin and eliquis. heme on board 6. Dilated CBD/Elevated LFT- possibly due to sepsis and shock liver. LFT improving. GI on board 7. Atrial fibrillation with RVR - resumed on Metoprolol (at increased dose of 75mg BID) and Amiodarone. Transitioned from Heparin drip to Eliquis (now held due to elevated INR and Thrombocytopenia). 8. hemorrhagic bullae- noted on hands. derm consulted 9. Elevated troponin - sec to demand due to sepsis. TnI max 0.07. No further work-up currently. Can follow with cardiology as out-patient. 10. Parkinson's Disease - Continue Sinemet/Amantadine. 11. HTN - BP borderline. Resumed on Metoprolol. 12. Dysphagia s/p PEG - SBO resolved. PEG feeds resumed. 13, Thrombocytopenia- no signs of bleeding. Hematology on board 14. DVT Px - Eliquis held. SCD 15. DNR. poor prognosis. palliative care. possible LTACH referral
[2018-11-19 11:11] LABS: INR 2.04 (0.83-1.09); PROTHROMBIN TIME (PATIENT) 24.2 SEC (9.7-13.0)
[2018-11-19] MEDS ORDERED: PT OWN MED DRAWER 7, Y5N ONE ×4 (11:36→16:46)
[2018-11-19] MEDS: METOPROLOL TARTRATE 25 MG TABLET (FP) GT SCH (11:49)
[2018-11-19] MEDS: PANTOPRAZOLE SODIUM 40 MG VIAL IVPUSH SCH (11:49)
[2018-11-19] MEDS: AMANTADINE HCL 100MG/10 ML UNIT DOSE CUPS GT SCH (11:50)
[2018-11-19] MEDS: AMIODARONE HCL 200 MG TABLET (FP) GT SCH (11:50)
--- NOTE | 2018-11-19 11:50 | PN ---
Progress Note (short form) - Note Progress Note: NAD opens eyes on vent +edema of arms and legs Vital Signs Period Temp Pulse Resp BP Sys/Cope Pulse Ox Last 24 Hr 97 F-98.3 F 86-105 12-33 99-139/56-86 100-100 trach to vent cor-rrr llungs decreased bs at bases abd soft, +GT ext +edema CBC, BMP 11/19/18 07:00 11/19/18 07:00 Microbiology 11/08/18 17:00 Blood - Peripheral Venous Blood Culture - Final NO GROWTH AFTER 5 DAYS INCUBATION 11/08/18 16:35 Blood - Peripheral Venous Blood Culture - Final NO GROWTH AFTER 5 DAYS INCUBATION 11/05/18 15:00 Blood - Peripheral Venous Blood Culture - Final NO GROWTH AFTER 5 DAYS INCUBATION 11/05/18 14:30 Blood - Peripheral Venous Blood Culture - Final NO GROWTH AFTER 5 DAYS INCUBATION 11/06/18 13:00 Sputum - Endotrachea Suction/Ventilator Gram Stain - Final 11/06/18 13:00 Sputum - Endotrachea Suction/Ventilator Sputum Culture - Final Klebsiella Pneumoniae - Esbl Pseudomonas Aeruginosa Proteus Mirabilus - Esbl Produ 11/06/18 18:00 Urine For Antigen Detection Legionella Antigen - Final 11/06/18 18:00 Urine For Antigen Detection Streptococcus pneumoniae Antigen (M - Final 11/05/18 15:00 Urine - Urine - Catheterized Urine Culture - Final Yeast Like Organism a/p sepsis-day #11 ceftaz -avibactam to continue- to complete 14 days total suspect cxray findings are partly volume overload chronic resp failure worsening renal failure with anasarca- per renal- HD (on hold) parkinson's disease overall prognosis is poor strict contact isolation for resistant GNR Problem List - Problems (1) Fever Code(s): R50.9 - FEVER, UNSPECIFIED (2) SBO (small bowel obstruction) Code(s): K56.609 - UNSP INTESTNL OBST, UNSP TO PARTIAL VERSUS COMPLETE OBST (3) Pneumonia Code(s): J18.9 - PNEUMONIA, UNSPECIFIED ORGANISM Qualifiers: Pneumonia type: due to unspecified organism Laterality: right Lung location: lower lobe of lung Qualified Code(s): J18.1 - Lobar pneumonia, unspecified organism (4) Chronic respiratory failure Code(s): J96.10 - CHRONIC RESPIRATORY FAILURE, UNSP W HYPOXIA OR HYPERCAPNIA (5) MRSA (methicillin resistant Staphylococcus aureus) colonization Code(s): Z22.322 - CARRIER OR SUSPECTED CARRIER OF METHICILLIN RESIS STAPH
[2018-11-19] MEDS: [UNRECOGNIZED DRUG - OTHER] OD SCH ×5 (11:52→18:00)
--- NOTE | 2018-11-19 11:53 | PN ---
Progress Note (short form) - Note Progress Note: PULMONARY Awake and NAD on vent support. AC Mode. No acute events overnight. VSS/AFEBRILE/FIO2 40% Constitutional: Yes: Vented, NAD Eyes: Yes: WNL HENT: Yes: WNL Neck: Yes: Supple (trach) Cardiovascular: Yes: Pulse Irregular, S1, S2 Respiratory: Yes: Vented, scattered rhonchi Gastrointestinal: Yes: Normal Bowel Sounds, Soft Extremities: Yes: WNL Edema: No Labs/images: noted Chronic Respiratory Failure Pneumonia Severe Sepsis Acute Kidney Injury Lactic Acidosis +Troponins likely Demand Ischemia Atrial Fibrillation COPD HTN Parkinsons Disease - antibiotics per ID - monitor urine output, creatinine - rate control - continue anticoagulation - enteral feeds - DVT/GI prophylaxis - continue discussions regarding goals of care Edmond BAHENA MD
[2018-11-19] MEDS: TOBRA 0.3%/DEXAMETH 0.1% OPHTHALMIC SUSP 2.5 ML BTL OU SCH ×2 (11:59→18:00)
[2018-11-19] MEDS ORDERED: PHYTONADIONE 10 MG/1 ML AMP SQ ONE (12:15)
--- NOTE | 2018-11-19 13:59 | PN ---
Progress Note, Physician History of Present Illness: Pt seen and examined at bedside. He is awake. His renal function is worsening and urine output is decreasing. - Current Medication List Current Medications: Active Medications Albuterol/Ipratropium (Duoneb -) 1 amp NEB RQID [facility] Last Admin: 11/19/18 11:54 Dose: 1 amp Amantadine HCl (Symmetrel Oral Solution -) 100 mg GT BID [facility] Last Admin: 11/19/18 11:50 Dose: 100 mg Amiodarone HCl (Cordarone -) 200 mg GT DAILY [facility] Last Admin: 11/19/18 11:50 Dose: 200 mg Carbidopa/Levodopa (Sinemet 25/250 -) 2 each GT TID [facility] Last Admin: 11/19/18 05:14 Dose: 2 each Collagenase (Santyl -) 1 applic TP DAILY [facility]; Protocol Last Admin: 11/18/18 12:30 Dose: 1 applic Homatropine HBr (Isopto Homatropine 5% -) 1 drop OD QID [facility] Last Admin: 11/19/18 11:52 Dose: 1 drop Sodium Chloride (Normal Saline -) 250 mls @ 3,000 mls/hr IV PRN PRN PRN Reason: Hypotension during Dialysis Stop: 11/16/18 16:53 Ceftazidime/Avibactam 0.94 gm/ (Dextrose) 100 mls @ 50 mls/hr IVPB DAILY [facility]; Protocol Latanoprost (Xalatan 0.005% Eye Drops -) 1 drop OU HS [facility] Last Admin: 11/18/18 23:10 Dose: 1 drop Metoprolol Tartrate (Lopressor -) 75 mg GT BID [facility] Last Admin: 11/19/18 11:49 Dose: 75 mg Metoprolol Tartrate (Lopressor Injection -) 5 mg IVPUSH Q4H PRN PRN Reason: TACHYCARDIA Pantoprazole Sodium (Protonix Iv) 40 mg IVPUSH DAILY [facility] Last Admin: 11/19/18 11:49 Dose: 40 mg Tobramycin/Dexamethasone (Tobradex Ophthalmic Suspension -) 1 drop OU BID [facility] Last Admin: 11/18/18 23:10 Dose: 1 drp - Objective Vital Signs: Vital Signs Temperature 97 F L 11/19/18 11:42 Pulse Rate 90 11/19/18 11:42 Respiratory Rate 25 H 11/19/18 11:54 Blood Pressure 139/79 11/19/18 11:42 O2 Sat by Pulse Oximetry (%) 100 11/18/18 21:37 Constitutional: Yes: Calm Eyes: Yes: Conjunctiva Clear HENT: Yes: Atraumatic Neck: Yes: Supple Cardiovascular: Yes: S1, S2 Respiratory: Yes: Intubated, Mechanically Ventilated, Rhonchi Gastrointestinal: Yes: Soft, Other (peg) Genitourinary: Yes: Salguero Present Musculoskeletal: Yes: Muscle Weakness Edema: Yes Edema: LUE: 2+, RUE: 2+, LLE: 2+, RLE: 2+ Neurological: Yes: Other (awake) Labs: CBC, BMP 11/19/18 07:00 11/19/18 07:00 INR, PTT INR 2.04 (0.83-1.09) H 11/19/18 10:45 Fibrinogen 467.0 mg/dL (238-498) 11/15/18 06:50 Problem List - Problems (1) [place] (acute kidney injury) Code(s): N17.9 - ACUTE KIDNEY FAILURE, UNSPECIFIED (2) Atrial fibrillation with RVR Code(s): I48.91 - UNSPECIFIED ATRIAL FIBRILLATION (3) Ileus Code(s): K56.7 - ILEUS, UNSPECIFIED (4) Sepsis Code(s): A41.9 - SEPSIS, UNSPECIFIED ORGANISM Qualifiers: Sepsis type: sepsis due to unspecified organism Sepsis acute organ dysfunction status: with acute organ dysfunction Severe sepsis acute organ dysfunction type: acute renal failure Acute renal failure type: unspecified Severe sepsis shock status: without septic shock Qualified Code(s): A41.9 - Sepsis, unspecified organism; R65.20 - Severe sepsis without septic shock; N17.9 - Acute kidney failure, unspecified Assessment/Plan Current Medications Generic Name Dose Route Start Last Admin Trade Name Freq PRN Reason Stop Dose Admin Albuterol/Ipratropium 1 amp 11/15/18 08:00 11/19/18 11:54 Duoneb - NEB 1 amp RQID LUCRECIA Administration Amantadine HCl 100 mg 11/15/18 10:00 11/19/18 11:50 Symmetrel Oral Solution - GT 100 mg BID LUCRECIA Administration Amiodarone HCl 200 mg 11/15/18 10:00 11/19/18 11:50 Cordarone - GT 200 mg DAILY [facility]CRECIA Administration Carbidopa/Levodopa 2 each 11/15/18 06:00 11/19/18 05:14 Sinemet 25/250 - GT 2 each TID LUCRECIA Administration Collagenase 1 applic 11/15/18 10:00 11/18/18 12:30 Santyl - TP 1 applic DAILY [facility]CRECIA Administration Protocol Homatropine HBr 1 drop 11/15/18 10:00 11/19/18 11:52 Isopto Homatropine 5% - OD 1 drop QID [facility]CRECIA Administration Sodium Chloride 250 mls @ 3,000 mls/hr 11/15/18 16:53 Normal Saline - IV 11/16/18 16:53 PRN PRN Hypotension during Dialysis Ceftazidime/Avibactam 0.94 gm/ 100 mls @ 50 mls/hr 11/19/18 10:00 Dextrose IVPB DAILY [facility] Protocol Latanoprost 1 drop 11/15/18 22:00 11/18/18 23:10 Xalatan 0.005% Eye Drops - OU 1 drop HS [facility]IA Administration Metoprolol Tartrate 75 mg 11/15/18 10:00 11/19/18 11:49 Lopressor - GT 75 mg BID LUCRECIA Administration Metoprolol Tartrate 5 mg 11/14/18 23:17 Lopressor Injection - IVPUSH Q4H PRN TACHYCARDIA Pantoprazole Sodium 40 mg 11/15/18 10:00 11/19/18 11:49 Protonix Iv IVPUSH 40 mg DAILY [facility] Administration Tobramycin/Dexamethasone 1 drop 11/15/18 10:00 11/18/18 23:10 Tobradex Ophthalmic Suspension - OU 1 drp BID LUCRECIA Administration Impression: 1. [place] 2. sepsis 3. PNA 4. SBO 5. Parkinson's 6. a-fib 7. chronic resp failure 8. severe sepsis 9. lactic acidosis 10. copd 11. hx of htn Plan - will arrange for HD today - called and spoke to his son Beny - will UF volume on HD - renal function is worsening, pt did not respond to medical management - monitor urine output - arrange for an other HD session tomorrow - will try to make net negative - cont vent support
--- NOTE | 2018-11-19 16:05 | PROC ---
Central Line Insertion - Procedure Note TIME OUT performed prior to this procedure with verbal confirmation of correct patient identity, correct side, agreement of the procedure, correct patient position, availability of necessary equipment. The consent form is complete and accurate. Risk of possible infection, bleeding and pneumothorax have been discussed with the patient. Safety precautions based on patient history or medication use has been addressed. Indication: Other (dialysis) Consent on Chart: Yes Central Line: Other (trialysis) Position: Supine Area prepped with Chlorhexidine solution then draped using sterile barrier protection. Anesthesia: Lidocaine 1% Technique used: Seldinger Ultrasound Guided Assistance: Yes Site: Left Femoral Dark venous non-pulsatile flow noted from hub of needle. The catheter was introduced. Guide wire removed intact. Each port aspirated then flushed with sterile normal saline and capped. Line secured to skin with silk suture. Biopatch placed around base of line. Sterile occlusive dressing applied. No complications. Patient tolerated the procedure well. DUKE Pradhan was present and assisted for the entire procedure OK to use line.
[2018-11-19] MEDS: COLLAGENASE CLOSTRIDIUM HIST. 30 GRAMS TUBE TP SCH (16:56)
[2018-11-20] MEDS: TOBRA 0.3%/DEXAMETH 0.1% OPHTHALMIC SUSP 2.5 ML BTL OU SCH ×2 (00:06→11:02)
[2018-11-20] MEDS: LATANOPROST 0.005% OPHTH SOLN 2.5ML BOTTLE OU SCH ×2 (00:06→23:20)
[2018-11-20] MEDS: APIXABAN 2.5 MG TABLET GT SCH ×2 (00:06→11:00)
[2018-11-20] MEDS: METOPROLOL TARTRATE 25 MG TABLET (FP) GT SCH ×3 (00:06→23:19)
[2018-11-20] MEDS: CARBIDOPA/LEVODOPA 25/250 TABLET (FP) GT SCH ×4 (00:06→23:19)
[2018-11-20] MEDS: [UNRECOGNIZED DRUG - OTHER] OD SCH ×2 (00:06→11:02)
[2018-11-20] MEDS: AMANTADINE HCL 100MG/10 ML UNIT DOSE CUPS GT SCH ×3 (00:06→23:19)
[2018-11-20] MEDS ORDERED: EPOETIN ALFA 2,000 UNIT/1 ML VIAL IVPUSH ONE (03:34)
[2018-11-20] MEDS ORDERED: SODIUM CHLORIDE 250 ML IV PRN ×2 (03:34→09:00)
[2018-11-20] MEDS ORDERED: EPOETIN ALFA 10,000 UNIT/1 ML VIAL IVPUSH ONE (08:30)
[2018-11-20 09:08] LABS: HEMOGLOBIN 7.2 GM/dL (11.7-16.9); MCH 30.1 pg (25.7-33.7); MCHC 32.6 g/dl (32.0-35.9); MEAN CELL VOLUME 92.5 fl (80-96); MEAN PLT VOLUME 9.2 fl (7.5-11.1); PLATELET COUNT 58 K/MM3 (134-434); RBC 2.38 M/mm3 (4.00-5.60); RDW 25.1 % (11.9-15.9); WHITE BLOOD COUNT 10.9 K/mm3 (4.0-10.0)
[2018-11-20] MEDS ORDERED: PT OWN MED DRAWER 7, Y5N ONE ×2 (09:13→10:33)
[2018-11-20 09:29] LABS: BLOOD UREA NITROGEN 87.5 mg/dL (7-18); CALCIUM 8.6 mg/dL (8.5-10.1); CREATININE 4.1 mg/dL (0.55-1.3); POTASSIUM 3.7 mmol/L (3.5-5.1)
[2018-11-20] MEDS: CEFTAZIDIME/AVIBACTAM 0.94 GM in DEXTROSE 5%-WATER - 100 ML IVPB SCH ×2 (11:00→12:31)
[2018-11-20] MEDS: AMIODARONE HCL 200 MG TABLET (FP) GT SCH (11:00)
[2018-11-20] MEDS: COLLAGENASE CLOSTRIDIUM HIST. 30 GRAMS TUBE TP SCH (11:04)
--- NOTE | 2018-11-20 11:08 | PN ---
Progress Note (short form) - Note Progress Note: PULMONARY Awake on vent support. AC Mode.Fio2 40%/VT450/Rr12 No acute events overnight. VSS/AFEBRILE/SPO@100% Constitutional: Yes: Vented, NAD Eyes: Yes: WNL HENT: Yes: WNL Neck: Yes: Supple (trach) Cardiovascular: Yes: Pulse Irregular, S1, S2 Respiratory: Yes: Vented, scattered rhonchi Gastrointestinal: Yes: Normal Bowel Sounds, Soft Extremities: Yes: WNL Edema: No Labs/images: noted Chronic Respiratory Failure/Vent support Pneumonia Severe Sepsis Acute Kidney Injury Lactic Acidosis +Troponins likely Demand Ischemia Atrial Fibrillation COPD HTN Parkinsons Disease - antibiotics per ID - monitor urine output, creatinine - rate control - continue anticoagulation - enteral feeds - DVT/GI prophylaxis - continue discussions regarding goals of care Edmond BAHENA MD
--- NOTE | 2018-11-20 11:47 | PN ---
Progress Note (short form) - Note Progress Note: resting comfortable s/p L femoral shiley placed 11/19 with HD yesterday adn today Current Medications Generic Name Dose Route Start Last Admin Trade Name Osmani PRN Reason Stop Dose Admin Amantadine HCl 100 mg 11/15/18 10:00 11/20/18 11:03 Symmetrel Oral Solution - GT 100 mg BID LUCRECIA Administration Amiodarone HCl 200 mg 11/15/18 10:00 11/20/18 11:00 Cordarone - GT 200 mg DAILY LUCRECIA Administration Carbidopa/Levodopa 2 each 11/15/18 06:00 11/20/18 06:23 Sinemet 25/250 - GT 2 each TID LUCRECIA Administration Collagenase 1 applic 11/15/18 10:00 11/20/18 11:04 Santyl - TP 1 applic DAILY LUCRECIA Administration Protocol Homatropine HBr 1 drop 11/15/18 10:00 11/20/18 11:02 Isopto Homatropine 5% - OD 1 drop QID LUCRECIA Administration Sodium Chloride 250 mls @ 3,000 mls/hr 11/20/18 09:00 Normal Saline - IV 11/21/18 08:59 PRN PRN Hypotension during Dialysis Ceftazidime/Avibactam 0.94 gm/ 100 mls @ 50 mls/hr 11/19/18 10:00 11/20/18 11 :00 Dextrose IVPB 50 mls/hr DAILY LUCRECIA Administration Protocol Sodium Chloride 250 mls @ 3,000 mls/hr 11/20/18 03:34 Normal Saline - IV 11/21/18 03:34 PRN PRN Hypotension during Dialysis Latanoprost 1 drop 11/15/18 22:00 11/20/18 00:06 Xalatan 0.005% Eye Drops - OU 1 drop HS LUCRECIA Administration Metoprolol Tartrate 75 mg 11/15/18 10:00 11/20/18 11:00 Lopressor - GT 75 mg BID LUCRECIA Administration Metoprolol Tartrate 5 mg 11/14/18 23:17 Lopressor Injection - IVPUSH Q4H PRN TACHYCARDIA Pantoprazole Sodium 40 mg 11/15/18 10:00 11/19/18 11:49 Protonix Iv IVPUSH 40 mg DAILY LUCRECIA Administration Tobramycin/Dexamethasone 1 drop 11/15/18 10:00 11/20/18 11:02 Tobradex Ophthalmic Suspension - OU 1 drp BID LUCRECIA Administration Last Vital Signs Temp Pulse Resp BP Pulse Ox 97.1 F L 102 H 12 97/48 L 100 11/20/18 06:00 11/20/18 10:15 11/20/18 10:15 11/20/18 10:15 11/20/18 09:37 Intake & Output 11/17/18 11/18/18 11/19/18 11/20/18 23:59 23:59 23:59 23:59 Intake Total 2470 1345 770 520 Output Total 1878 439 7065 Balance 1470 445 -2480 520 General NAD CV S1 S2 tachy Lungs CTA anteriorly Abdomen soft NT. slight distended. tympanic . +PEG extremities 1+ pitting edema UE>LE, hemorrhagic bullae noted on B/L Hands CBCD WBC 10.9 K/mm3 (4.0-10.0) H 11/20/18 07:00 RBC 2.38 M/mm3 (4.00-5.60) L 11/20/18 07:00 Hgb 7.2 GM/dL (11.7-16.9) L 11/20/18 07:00 Hct 22.0 % (35.4-49) L 11/20/18 07:00 MCV 92.5 fl (80-96) 11/20/18 07:00 MCHC 32.6 g/dl (32.0-35.9) 11/20/18 07:00 RDW 25.1 % (11.9-15.9) H 11/20/18 07:00 Plt Count 58 K/MM3 (134-434) L D 11/20/18 07:00 MPV 9.2 fl (7.5-11.1) 11/20/18 07:00 CMP Sodium 143 mmol/L (136-145) 11/20/18 07:00 Potassium 3.7 mmol/L (3.5-5.1) 11/20/18 07:00 Chloride 106 mmol/L (98-107) 11/20/18 07:00 Carbon Dioxide 23 mmol/L (21-32) 11/20/18 07:00 Anion Gap 14 MMOL/L (8-16) 11/20/18 07:00 BUN 87.5 mg/dL (7-18) H 11/20/18 07:00 Creatinine 4.1 mg/dL (0.55-1.3) H 11/20/18 07:00 Calcium 8.6 mg/dL (8.5-10.1) 11/20/18 07:00 Total Bilirubin 1.5 mg/dL (0.2-1) H 11/19/18 07:00 AST 9 U/L (15-37) L 11/19/18 07:00 ALT < 6 U/L (13-61) L 11/19/18 07:00 Alkaline Phosphatase 138 U/L (45-117) H 11/19/18 07:00 Total Protein 5.6 g/dl (6.4-8.2) L 11/19/18 07:00 Albumin 2.0 g/dl (3.4-5.0) L 11/19/18 07:00 ASSESSMENT AND PLAN: 88 year old male with Parkinson's Disease, COPD, HTN, Atrial Fibrillation, CRF s /p Trach/PEG, presented with fevers/chills, abdominal pain/distension, found to have SBO and sepsis secondary to Pneumonia. 1. Acute on Chronic Respiratory Failure and Severe Sepsis secondary to Pneumonia. s/p trach. vent dependent. +pseudomonas. on ceftazidime and flagyl. ID and pulmonary on board 2. [place] due to sepsis/ATN vs contrast induced nephropathy- s/p HD yesterday and today and tolerated well. appears less volume overloaded. will monitor volume status. nephro on board 3. Volume overload- improved. tolerated HD 4. anemia- likely combination of chronic disease. no obvious signs of bleeding. hgb stable. will hold PRBC at this time as hgb is stable. check INR. no signs of bleeding. w 5. Elevated INR- unknown cause. vit K x3 given. INR trending down. HIT panel pending. holding heparin and eliquis. heme on board 6. Dilated CBD/Elevated LFT- possibly due to sepsis and shock liver. LFT improving. GI on board 7. Atrial fibrillation with RVR - resumed on Metoprolol (at increased dose of 75mg BID) and Amiodarone. Transitioned from Heparin drip to Eliquis (now held due to elevated INR and Thrombocytopenia). 8. hemorrhagic bullae- noted on hands. derm consulted 9. Elevated troponin - sec to demand due to sepsis. TnI max 0.07. No further work-up currently. Can follow with cardiology as out-patient. 10. Parkinson's Disease - Continue Sinemet/Amantadine. 11. HTN - BP borderline. Resumed on Metoprolol. 12. Dysphagia s/p PEG - SBO resolved. PEG feeds resumed. 13, Thrombocytopenia- no signs of bleeding. Hematology on board 14. DVT Px - Eliquis held. SCD 15. DNR. poor prognosis. palliative care. possible LTACH referral Visit type - Emergency Visit Emergency Visit: Yes ED Registration Date: 11/05/18 Care time: The patient presented to the Emergency Department on the above date and was hospitalized for further evaluation of their emergent condition. - New Patient This patient is new to me today: No - Critical Care Critical Care patient: No - Discharge Referral Referred to [facility] Med P.C.: No
[2018-11-20] MEDS: PANTOPRAZOLE SODIUM 40 MG VIAL IVPUSH SCH (12:00)
--- NOTE | 2018-11-20 14:06 | PN ---
Progress Note (short form) - Note Progress Note: RENAL pt is trached and remains very edematous makes eye contact but does not speak Last Vital Signs Temp Pulse Resp BP Pulse Ox 97.1 F L 102 H 22 H 97/48 L 100 11/20/18 06:00 11/20/18 10:15 11/20/18 13:57 11/20/18 10:15 11/20/18 09:37 lungs clear cvs s1s2 rr abd soft ext +edema neuro poorly responsive CBC, BMP 11/20/18 07:00 11/20/18 07:00 Current Medications Generic Name Dose Route Start Last Admin Trade Name Freq PRN Reason Stop Dose Admin Amantadine HCl 100 mg 11/15/18 10:00 11/20/18 11:03 Symmetrel Oral Solution - GT 100 mg BID LUCRECIA Administration Amiodarone HCl 200 mg 11/15/18 10:00 11/20/18 11:00 Cordarone - GT 200 mg DAILY LUCRECIA Administration Carbidopa/Levodopa 2 each 11/15/18 06:00 11/20/18 06:23 Sinemet 25/250 - GT 2 each TID LUCRECIA Administration Collagenase 1 applic 11/15/18 10:00 11/20/18 11:04 Santyl - TP 1 applic DAILY LUCRECIA Administration Protocol Sodium Chloride 250 mls @ 3,000 mls/hr 11/20/18 09:00 Normal Saline - IV 11/21/18 08:59 PRN PRN Hypotension during Dialysis Ceftazidime/Avibactam 0.94 gm/ 100 mls @ 50 mls/hr 11/19/18 10:00 11/20/18 12 :31 Dextrose IVPB Not Given DAILY LUCRECIA Protocol Sodium Chloride 250 mls @ 3,000 mls/hr 11/20/18 03:34 Normal Saline - IV 11/21/18 03:34 PRN PRN Hypotension during Dialysis Latanoprost 1 drop 11/15/18 22:00 11/20/18 00:06 Xalatan 0.005% Eye Drops - OU 1 drop HS LUCRECIA Administration Metoprolol Tartrate 75 mg 11/15/18 10:00 11/20/18 11:00 Lopressor - GT 75 mg BID LUCRECIA Administration Metoprolol Tartrate 5 mg 11/14/18 23:17 Lopressor Injection - IVPUSH Q4H PRN TACHYCARDIA Pantoprazole Sodium 40 mg 11/15/18 10:00 11/20/18 12:00 Protonix Iv IVPUSH 40 mg DAILY LUCRECIA Administration IMPRESSION jack dependent on hd for now PLAN spoke to son and agreed with trial of dialysis therapy MV
[2018-11-21] MEDS: CARBIDOPA/LEVODOPA 25/250 TABLET (FP) GT SCH ×3 (05:56→22:13)
[2018-11-21 08:17] LABS: HEMATOCRIT 23.7 % (35.4-49); HEMOGLOBIN 7.4 GM/dL (11.7-16.9); MCH 29.5 pg (25.7-33.7); MCHC 31.1 g/dl (32.0-35.9); MEAN CELL VOLUME 94.9 fl (80-96); MEAN PLT VOLUME 10.7 fl (7.5-11.1); PLATELET COUNT 40 K/MM3 (134-434); WHITE BLOOD COUNT 11.5 K/mm3 (4.0-10.0)
[2018-11-21 08:50] LABS: INR 2.27 (0.83-1.09)
[2018-11-21 09:15] LABS: BLOOD UREA NITROGEN 72.5 mg/dL (7-18); CALCIUM 8.1 mg/dL (8.5-10.1); CREATININE 3.6 mg/dL (0.55-1.3); POTASSIUM 3.3 mmol/L (3.5-5.1)
[2018-11-21] MEDS: AMANTADINE HCL 100MG/10 ML UNIT DOSE CUPS GT SCH ×2 (10:41→22:12)
[2018-11-21] MEDS: CEFTAZIDIME/AVIBACTAM 0.94 GM in DEXTROSE 5%-WATER - 100 ML IVPB SCH (10:41)
[2018-11-21] MEDS: PANTOPRAZOLE SODIUM 40 MG VIAL IVPUSH SCH (10:41)
[2018-11-21] MEDS: AMIODARONE HCL 200 MG TABLET (FP) GT SCH (10:41)
[2018-11-21] MEDS: METOPROLOL TARTRATE 25 MG TABLET (FP) GT SCH ×2 (10:41→22:13)
[2018-11-21] MEDS: COLLAGENASE CLOSTRIDIUM HIST. 30 GRAMS TUBE TP SCH (11:12)
--- NOTE | 2018-11-21 11:29 | PN ---
Progress Note (short form) - Note Progress Note: RENAL pt is trached and remains very edematous makes eye contact but does not speak Last Vital Signs Temp Pulse Resp BP Pulse Ox 98.4 F 98 H 17 117/92 97 11/21/18 05:54 11/21/18 05:54 11/21/18 08:57 11/21/18 05:54 11/20/18 21:00 lungs clear cvs s1s2 rr abd soft ext +edema neuro poorly responsive gu has galarza with hematuria CBC, BMP 11/21/18 07:05 11/21/18 07:05 Current Medications Generic Name Dose Route Start Last Admin Trade Name Freq PRN Reason Stop Dose Admin Amantadine HCl 100 mg 11/15/18 10:00 11/21/18 10:41 Symmetrel Oral Solution - GT 100 mg BID LUCRECIA Administration Amiodarone HCl 200 mg 11/15/18 10:00 11/21/18 10:41 Cordarone - GT 200 mg DAILY LUCRECIA Administration Carbidopa/Levodopa 2 each 11/15/18 06:00 11/21/18 05:56 Sinemet 25/250 - GT 2 each TID LUCRECIA Administration Collagenase 1 applic 11/15/18 10:00 11/21/18 11:12 Santyl - TP 1 applic DAILY LUCRECIA Administration Protocol Ceftazidime/Avibactam 0.94 gm/ 100 mls @ 50 mls/hr 11/19/18 10:00 11/21/18 10 :41 Dextrose IVPB 50 mls/hr DAILY LUCRECIA Administration Protocol Latanoprost 1 drop 11/15/18 22:00 11/20/18 23:20 Xalatan 0.005% Eye Drops - OU 1 drop HS LUCRECIA Administration Metoprolol Tartrate 75 mg 11/15/18 10:00 11/21/18 10:41 Lopressor - GT 75 mg BID LUCRECIA Administration Metoprolol Tartrate 5 mg 11/14/18 23:17 Lopressor Injection - IVPUSH Q4H PRN TACHYCARDIA Pantoprazole Sodium 40 mg 11/15/18 10:00 11/21/18 10:41 Protonix Iv IVPUSH 40 mg DAILY LUCRECIA Administration IMPRESSION jack dependent on hd for now hematuria fluid overload PLAN would dialyze again tomorrow he is swollen but is not dyspneic. so can wait for tomorrow reduce fluids MV
--- NOTE | 2018-11-21 11:30 | PN ---
Teaching Attending Note Name of Resident: León Serrato ATTENDING PHYSICIAN STATEMENT I saw and evaluated the patient. I reviewed the resident's note and discussed the case with the resident. I agree with the resident's findings and plan as documented. SUBJECTIVE:resting comfortable. urine noted to be black OBJECTIVE: Last Vital Signs Temp Pulse Resp BP Pulse Ox 98.4 F 98 H 17 117/92 97 11/21/18 05:54 11/21/18 05:54 11/21/18 08:57 11/21/18 05:54 11/20/18 21:00 Intake & Output 11/18/18 11/19/18 11/20/18 11/21/18 23:59 23:59 23:59 23:59 Intake Total 2245 571 2386 740 Output Total 900 3250 3580 Balance 445 -2480 -2040 740 General resting comfortable CV S1 s2 tachy lungs decreased breath sounds anteriorly. no wheezing abdomen soft +distended. NT. +PEG Extremities 2+ pitting edema B/L UE 1+ pitting edema B/L LE ASSESSMENT AND PLAN: 88 year old male with Parkinson's Disease, COPD, HTN, Atrial Fibrillation, CRF s /p Trach/PEG, presented with fevers/chills, abdominal pain/distension, found to have SBO and sepsis secondary to Pneumonia. 1. Acute on Chronic Respiratory Failure and Severe Sepsis secondary to Pneumonia. s/p trach. vent dependent. +pseudomonas. on ceftazidime and flagyl. ID and pulmonary on board 2. [place] due to sepsis/ATN vs contrast induced nephropathy- s/p HD x2. will liekly require more HD due to volume overload and oliguria. will d/w nephro if should trial lasix today vs HD. nephro on board 3. Dark Urine- ATN vs hemolyzing. check UA, fibrinogen, LDH. reach out to heme for input. INR is trending up 4. Volume overload-remains net negative but volume overloaded. tolerated HD. will need continued HD 5. anemia- likely combination of chronic disease. no obvious signs of bleeding. hgb stable. will hold PRBC at this time as hgb is stable. 6. Elevated INR- unknown cause. vit K x3 given. INR elevated today. will d/w heme about more vit K. HIT panel pending. holding heparin and eliquis. heme on board 7. Dilated CBD/Elevated LFT- possibly due to sepsis and shock liver. LFT improving. GI on board 8. Atrial fibrillation with RVR - resumed on Metoprolol (at increased dose of 75mg BID) and Amiodarone. Transitioned from Heparin drip to Eliquis (now held due to elevated INR and Thrombocytopenia). 9. hemorrhagic bullae- noted on hands. derm consulted 10. Elevated troponin - sec to demand due to sepsis. TnI max 0.07. No further work-up currently. Can follow with cardiology as out-patient. 11. Parkinson's Disease - Continue Sinemet/Amantadine. 12. HTN - BP borderline. Resumed on Metoprolol. 13. Dysphagia s/p PEG - SBO resolved. PEG feeds resumed. 14, Thrombocytopenia- no signs of bleeding. Hematology on board 15. DVT Px - Eliquis held. SCD 16. DNR. poor prognosis. palliative care. possible LTACH referral
--- NOTE | 2018-11-21 11:34 | PN ---
Physical Exam: SUBJECTIVE: Patient seen and examined at bedside this morning. Tolerated hemodialysis yesterday wth 3KG removal. No acute overnight events. Urine output noted to be significantly dark colored this morning. OBJECTIVE: Vital Signs Period Temp Pulse Resp BP Sys/Cope Pulse Ox Last 24 Hr 98.4 F-98.5 F 85-103 17-26 93-155/60-92 97-100 GENERAL: The patient is awake. Tracheostomy, on ventilator HEAD: Normal with no signs of trauma. EYES: Pupils equally reactive to light, sclera anicteric, conjunctiva clear NECK: Trach in place, site clean, dry. LUNGS: Breath sounds equal, rhonchi bilaterally. HEART: Tachycardic, irregular rhythm, S1, S2 without murmur, rub or gallop. ABDOMEN: Soft, mild distention. Hypoactive bowel sounds x4 quadrants. Gastric tube in place, site clean dry. EXTREMITIES: 2+ pitting edema in hands, +2 pitting edema bilateral lower extremities. SKIN: Warm, dry. Significant ecchymosis noted on bilateral hands Laboratory Results - last 24 hr 11/19/18 11/20/18 11/20/18 19:30 11:20 12:01 WBC RBC Hgb Hct MCV MCH MCHC RDW Plt Count MPV PT with INR INR Sodium Potassium Chloride Carbon Dioxide Anion Gap BUN Creatinine Est GFR (CKD-EPI)AfAm Est GFR (CKD-EPI)NonAf POC Glucometer 148 Random Glucose Calcium Stool Occult Blood Positive Hep Bs Antigen Negative Hep C Ab Diagnostic 0.2 11/20/18 11/21/18 11/21/18 23:02 07:05 07:05 WBC 11.5 H RBC 2.50 L Hgb 7.4 L Hct 23.7 L MCV 94.9 MCH 29.5 MCHC 31.1 L RDW 25.0 H Plt Count 40 L D MPV 10.7 D PT with INR 27.00 H INR 2.27 H Sodium Potassium Chloride Carbon Dioxide Anion Gap BUN Creatinine Est GFR (CKD-EPI)AfAm Est GFR (CKD-EPI)NonAf POC Glucometer 134 Random Glucose Calcium Stool Occult Blood Hep Bs Antigen Hep C Ab Diagnostic 11/21/18 07:05 WBC RBC Hgb Hct MCV MCH MCHC RDW Plt Count MPV PT with INR INR Sodium 141 Potassium 3.3 L Chloride 102 Carbon Dioxide 22 Anion Gap 17 H BUN 72.5 H Creatinine 3.6 H Est GFR (CKD-EPI)AfAm 16.48 Est GFR (CKD-EPI)NonAf 14.22 POC Glucometer Random Glucose 136 H Calcium 8.1 L Stool Occult Blood Hep Bs Antigen Hep C Ab Diagnostic Active Medications Generic Name Dose Route Start Last Admin Trade Name Freq PRN Reason Stop Dose Admin Amantadine HCl 100 mg 11/15/18 10:00 11/21/18 10:41 Symmetrel Oral Solution - GT 100 mg BID LUCRECIA Administration Amiodarone HCl 200 mg 11/15/18 10:00 11/21/18 10:41 Cordarone - GT 200 mg DAILY LUCRECIA Administration Carbidopa/Levodopa 2 each 11/15/18 06:00 11/21/18 05:56 Sinemet 25/250 - GT 2 each TID LUCRECIA Administration Collagenase 1 applic 11/15/18 10:00 11/21/18 11:12 Santyl - TP 1 applic DAILY LUCRECIA Administration Protocol Ceftazidime/Avibactam 0.94 gm/ 100 mls @ 50 mls/hr 11/19/18 10:00 11/21/18 10 :41 Dextrose IVPB 50 mls/hr DAILY LUCRECIA Administration Protocol Latanoprost 1 drop 11/15/18 22:00 11/20/18 23:20 Xalatan 0.005% Eye Drops - OU 1 drop HS LUCRECIA Administration Metoprolol Tartrate 75 mg 11/15/18 10:00 11/21/18 10:41 Lopressor - GT 75 mg BID LUCRECIA Administration Metoprolol Tartrate 5 mg 11/14/18 23:17 Lopressor Injection - IVPUSH Q4H PRN TACHYCARDIA Pantoprazole Sodium 40 mg 11/15/18 10:00 11/21/18 10:41 Protonix Iv IVPUSH 40 mg DAILY LUCRECIA Administration ASSESSMENT/PLAN: Patient is an 88 year old male with hostory of Parkinson's, COPD, congestive ehart failure, hypertension, Afib on Eliquis, chronic respiratory failure with trach, PEG tube, history of prostate cancer admitted for sepsis secondary to pneumonia, and small bowel obstruction. Sepsis secondary to pneumonia with acute on chronic respiratory failure -WBC 11.5, patient afebrile overnight -Blood cultures negative for growth after 5 days -Chest radiograph reveals congestion and infiltration continuing to slightly improve. -CT abdomen, pelvis 11/09 reveals resolution of small bowel obstruction. -Continue Ceftazidime/Avibactam -ID recommendations (Dr. Vogt) appreciated. Acute kidney injury -BUN 72.5 Cr 3.6 -improving -Nephrology recommendations (Dr. Ibrahim) appreciated. -Patient tolerated HD with 3KG removal. Will continue HD, as indicated per nephrology. -Dark urine; concern for hemolysis, vs ATN. Will discuss with hematology, nephrology. Follow UA, fibrinogen, LDH. Acute, complicated urinary tract infection -Urine culture grows yeat- like organism -Patient is on Ceftazidime/Avibactam Congestive heart failure -Transthoracic cardiac ECHO reveals EF 65-70%, no LVH, mild RA dilation, moderate TR, moderate AR, no pericardial effusion -EKG 11/08/18: irregular rhythm, HR 98, QTc 589 -Patient tolerated HD with 3KG removal. -Strict intake, output. Daily weights. Anemia, thrombocytopenia -Hematuria, however Hb/ Hct without appreciable drop. Heparin Ab 0.347. -Follow Fibrinogen, Haptoglobin, LDH. -Hematology recommendations appreciated. SBO, resolved -CT abdomen, pelvis 11/09 reveals resolution of small bowel obstruction. -Tube feedings restarted, will increase to goal. -General surgery recommendations (Dr. Redd) appreciated. Transaminitis -resolved -Likely multifactorial. Component of shock liver secondary to sepsis. -Gastroenterology recommendations (Dr. Quinonez) appreciated. Atrial fibrillation -Metoprolol increased to 75mg BID -Eliquis held given trombocytopenia, and elevated INR. Will follow INR and reinstate once appropriate. Hypertension -Continue Metoprolol 75mg BID COPD -Continue Duo-nebs -Maintain oxygen saturation greater than 90% -Patient requiring ventilator support through tracheostomy. Parkinson's -Continue Amantadine, Sinemet. FEN -IV D5NS 50mL/hr -Monitor electrolytes, replete as necessary. -Perative tube feeds Prophylaxis -Eliquis 2.5 GT BID -Protonix 40mg IV daily Disposition -Continue to monitor in medical -surgical floor. Patient is DNR Visit type - Emergency Visit Emergency Visit: Yes ED Registration Date: 11/05/18 Care time: The patient presented to the Emergency Department on the above date and was hospitalized for further evaluation of their emergent condition. - New Patient This patient is new to me today: No - Critical Care Critical Care patient: No - Discharge Referral Referred to [facility] Med P.C.: No ATTENDING PHYSICIAN STATEMENT I saw and evaluated the patient. I reviewed the resident's note and discussed the case with the resident. I agree with the resident's findings and plan as documented. SUBJECTIVE: OBJECTIVE: ASSESSMENT AND PLAN:
[2018-11-21] MEDS ORDERED: SODIUM CHLORIDE 250 ML IV PRN (11:36)
--- NOTE | 2018-11-21 11:52 | PN ---
Progress Note (short form) - Note Progress Note: PULMONARY Awake on vent support. AC Mode.Fio2 40%/VT450/Rr12 No acute events overnight. VSS/AFEBRILE Constitutional: Yes: Vented, NAD Eyes: Yes: WNL HENT: Yes: WNL Neck: Yes: Supple (trach) Cardiovascular: Yes: Pulse Irregular, S1, S2 Respiratory: Yes: Vented, scattered rhonchi Gastrointestinal: Yes: Normal Bowel Sounds, Soft Extremities: Yes: WNL Edema: No Labs/images: noted Chronic Respiratory Failure/Vent support Pneumonia Severe Sepsis Acute Kidney Injury Lactic Acidosis +Troponins likely Demand Ischemia Atrial Fibrillation COPD HTN Parkinsons Disease - antibiotics per ID - monitor urine output, creatinine - rate control - continue anticoagulation - enteral feeds - DVT/GI prophylaxis - continue discussions regarding goals of care Edmond BAHENA MD
[2018-11-21 15:29] LABS: URINE APPEARANCE BLOODY; URINE COLOR RED
[2018-11-21 15:32] LABS: URINE RBC >100 /hpf (0-4); URINE WBC 60-100 /hpf (0-5)
[2018-11-21 15:33] LABS: URINE BACTERIA 1+ /hpf (NEGATIVE); YEAST 1+ (NEGATIVE)
[2018-11-21] MEDS: LATANOPROST 0.005% OPHTH SOLN 2.5ML BOTTLE OU SCH (22:13)
[2018-11-22] MEDS: CARBIDOPA/LEVODOPA 25/250 TABLET (FP) GT SCH ×3 (05:07→21:42)
--- NOTE | 2018-11-22 06:27 | PN ---
Physical Exam: SUBJECTIVE: Patient seen and examined. He is alert and on trach/vent. OBJECTIVE: Vital Signs Period Temp Pulse Resp BP Sys/Cope Pulse Ox Last 24 Hr 97.5 F-97.7 F 105-114 16-28 107-121/57-66 97-99 GENERAL: The patient is awake and responsive to auditory stimuli. Appears in no distress. HEAD: Normal with no signs of trauma. EYES: Pupils reactive to light L>R, extraocular movements intact, sclera anicteric, conjunctiva clear. No ptosis. ENT: Ears normal, nares patent, moist mucous membranes. NECK: Tracheostomy in place, limited ROM LUNGS: Decreased breath sounds. no accessory muscle use. HEART: Regular rate and rhythm, S1, S2 without murmur, rub or gallop. ABDOMEN: Moderate distention, tender to deep palpation, hypoactive bowel sounds EXTREMITIES: +2 pitting edema in hands, +2 pitting edema of feet, warm to touch NEUROLOGICAL: can move fingers and toes, follows voices with eyes and head PSYCH: unable to assess SKIN: Warm, dry, significant ecchymosis noted on both hands, bullae present on bilateral dorsal surfaces, with open hemorrhagic wound on right hand Laboratory Results - last 24 hr 11/21/18 11/21/18 11/21/18 07:05 07:05 07:05 WBC 11.5 H RBC 2.50 L Hgb 7.4 L Hct 23.7 L MCV 94.9 MCH 29.5 MCHC 31.1 L RDW 25.0 H Plt Count 40 L D MPV 10.7 D PT with INR 27.00 H INR 2.27 H Fibrinogen Sodium 141 Potassium 3.3 L Chloride 102 Carbon Dioxide 22 Anion Gap 17 H BUN 72.5 H Creatinine 3.6 H Est GFR (CKD-EPI)AfAm 16.48 Est GFR (CKD-EPI)NonAf 14.22 Random Glucose 136 H Calcium 8.1 L LD Total Urine Color Urine Appearance Urine pH Ur Specific [place] Urine Protein Urine Glucose (UA) Urine Ketones Urine Blood Urine Nitrite Urine Bilirubin Urine Urobilinogen Ur Leukocyte Esterase Urine WBC (Auto) Urine RBC (Auto) Urine Bacteria (Auto) Urine Yeast (Auto) 11/21/18 11/21/18 11/21/18 14:20 14:20 14:30 WBC RBC Hgb Hct MCV MCH MCHC RDW Plt Count MPV PT with INR INR Fibrinogen 415.0 Sodium Potassium Chloride Carbon Dioxide Anion Gap BUN Creatinine Est GFR (CKD-EPI)AfAm Est GFR (CKD-EPI)NonAf Random Glucose Calcium LD Total 199 Urine Color Red Urine Appearance Bloody Urine pH No Result Required. Ur Specific [place] No Result Required. Urine Protein No Result Required. Urine Glucose (UA) Urine Ketones No Result Required. Urine Blood No Result Required. Urine Nitrite No Result Required. Urine Bilirubin No Result Required. Urine Urobilinogen No Result Required. Ur Leukocyte Esterase No Result Required. Urine WBC (Auto) 60-100 Urine RBC (Auto) >100 Urine Bacteria (Auto) 1+ Urine Yeast (Auto) 1+ Active Medications Generic Name Dose Route Start Last Admin Trade Name Freq PRN Reason Stop Dose Admin Amantadine HCl 100 mg 11/15/18 10:00 11/21/18 22:12 Symmetrel Oral Solution - GT 100 mg BID LUCRECIA Administration Amiodarone HCl 200 mg 11/15/18 10:00 11/21/18 10:41 Cordarone - GT 200 mg DAILY LUCRECIA Administration Carbidopa/Levodopa 2 each 11/15/18 06:00 11/22/18 05:07 Sinemet 25/250 - GT 2 each TID LUCRECIA Administration Collagenase 1 applic 11/15/18 10:00 11/21/18 11:12 Santyl - TP 1 applic DAILY LUCRECIA Administration Protocol Ceftazidime/Avibactam 0.94 gm/ 100 mls @ 50 mls/hr 11/19/18 10:00 11/21/18 10 :41 Dextrose IVPB 50 mls/hr DAILY LUCRECIA Administration Protocol Sodium Chloride 250 mls @ 3,000 mls/hr 11/21/18 11:36 Normal Saline - IV 11/22/18 11:36 PRN PRN Hypotension during Dialysis Latanoprost 1 drop 11/15/18 22:00 11/21/18 22:13 Xalatan 0.005% Eye Drops - OU 1 drop HS LUCRECIA Administration Metoprolol Tartrate 75 mg 11/15/18 10:00 11/21/18 22:13 Lopressor - GT 75 mg BID LUCRECIA Administration Metoprolol Tartrate 5 mg 11/14/18 23:17 Lopressor Injection - IVPUSH Q4H PRN TACHYCARDIA Pantoprazole Sodium 40 mg 11/15/18 10:00 11/21/18 10:41 Protonix Iv IVPUSH 40 mg DAILY LUCRECIA Administration ASSESSMENT/PLAN: Mr. Smalls is an 88yo male with Parkinson's, COPD, CHF, HTN, a-fib on Eliquis, respiratory failure with trach and PEG, hx of prostate cancer who presents for abdominal distention and fevers. He was found to be septic 2/2 pneumonia, as well as SBO, and CBD dilation. UA on 11/10/18 resulted in UTI diagnosis. Creatinine was increasing, but has improved since hemodialysis began on 11/19. 1. [place], on HD 80.9/4.1 -day 3 of HD, 2.5kg removed today -monitor INR -pt typed and crossed -central line placed for dialysis -plan to remove 2kg of fluid with HD -Nephro following- vascular surgery aware line needs to be replaced, will speak with family about decision before proceeding -CMP 2. SBO pt became more distended, abdominal x-ray done showing possible SBO again, with recommendation for CT per radiology -had 1 BM yesterday -holding tube feeds -holding gt meds -switched tube to suction -GI consulted -discuss goals of care with family 3. anemia Hb 7.2, hematuria, FOBT positive -transfuse 1 unit PRBCs -repeat CBC, reassess 4. hematuria, possible ATN vs rhabdo vs hemolysis brown urine; Hb 7.2 -HD -check myoglobin -small amounts of fluids -urology consulted #acute on chronic hypoxic respiratory failure s/p trach/vent with sepsis 2/2 PNA CXR 3 days ago showed decrease congestion -Tylenol PRN discomfort -leukocytosis 11.9 -fluids being held, limiting drips -blood cultures negative -sputum culture positive Klebsiella, Pseudomonas, Proteus Mirabilus -CT abd/pelvis 11/05/18 showed mod to large pleural effusion on right, moderate on left -Ceftazidime/Avibactam and Flagyl (day 14) -ID following- d/c abx today and monitor -CBC 5. complicated UTI -galarza in place -abx course completed today 6. acute on chronic diastolic CHF -echo EF 65-70%, no LVH, mild RA dilation, moderate TR, moderate AR, no pericardial effusion -fluids successfully removed during 3 days of HD -no lasix today -no extra fluids -CMP 7. paroxysmal a-fib tachy -metoprolol -INR 2.04, Eliquis held for procedure -EKG 11/08/18: irregular rhythm, HR 98, QTc 589 -monitor QTc and medications which could increase it 8. thrombocytopenia Plt 41 -monitor for signs of bleeding -HIT pending -type and cross done -heme consulted 9. elevated INR 1.99 -Eliquis held -heme consulted 10. hypoglycemia BG 100s -BGM-monitor more closely because no feedings -SSI 11. elevated Alk Phos ALT 9, AST 12, Alk Phos 180 -negative FACUNDO, c-ANCA, p-ANCA, DS DNA Ab, GBM Ab, Heparin-induced plt Ab, myeloperoxidase Ab -negative hep B, and hep C, negative hep A IgM -GI following 12. HTN well-controlled, currently on metoprolol -frequent VS checks 13. decubitus ulcer -santyl 14. hemorrhagic bullae -xeroform dressing on right hand -derm consulted 15. COPD RR normal yesterday 16.Parkinson's -continue home meds when receiving feedings 17. hx of prostate cancer -PSA FEN none monitor lytes tube feedings held DVT Ppe SCDs, Eliquis 2.5mg BID- held GI Ppe Protonix- held DNR Visit type - Emergency Visit Emergency Visit: Yes ED Registration Date: 11/05/18 Care time: The patient presented to the Emergency Department on the above date and was hospitalized for further evaluation of their emergent condition. - New Patient This patient is new to me today: No - Critical Care Critical Care patient: No - Discharge Referral Referred to [facility] No ATTENDING PHYSICIAN STATEMENT I saw and evaluated the patient. I reviewed the resident's note and discussed the case with the resident. I agree with the resident's findings and plan as documented. SUBJECTIVE: OBJECTIVE: ASSESSMENT AND PLAN:
[2018-11-22 08:09] LABS: HEMATOCRIT 23.2 % (35.4-49); HEMOGLOBIN 7.2 GM/dL (11.7-16.9); MCH 29.8 pg (25.7-33.7); MEAN CELL VOLUME 96.2 fl (80-96); MEAN PLT VOLUME 10.3 fl (7.5-11.1); PLATELET COUNT 41 K/MM3 (134-434); RBC 2.41 M/mm3 (4.00-5.60); RDW 26.4 % (11.9-15.9); WHITE BLOOD COUNT 11.9 K/mm3 (4.0-10.0)
[2018-11-22 08:19] LABS: ALBUMIN 1.8 g/dl (3.4-5.0); ALK PHOS 179 U/L (45-117); ANION GAP 12 MMOL/L (8-16); BILIRUBIN,TOTAL 1.1 mg/dL (0.2-1); BLOOD UREA NITROGEN 80.9 mg/dL (7-18); CHLORIDE 103 mmol/L (98-107); CO2 25 mmol/L (21-32); CREATININE 4.1 mg/dL (0.55-1.3); GLUCOSE,RANDOM 113 mg/dL (74-106); POTASSIUM 3.3 mmol/L (3.5-5.1); SGOT/AST 17 U/L (15-37); SGPT/ALT < 6 U/L (13-61); SODIUM 140 mmol/L (136-145); TOT PROT 5.2 g/dl (6.4-8.2)
[2018-11-22] MEDS ORDERED: PT OWN MED DRAWER 7, Y5N ONE ×2 (10:59→13:13)
[2018-11-22] MEDS: PANTOPRAZOLE SODIUM 40 MG VIAL IVPUSH SCH (11:03)
[2018-11-22] MEDS: METOPROLOL TARTRATE 25 MG TABLET (FP) GT SCH ×2 (11:03→21:42)
[2018-11-22] MEDS: AMIODARONE HCL 200 MG TABLET (FP) GT SCH (11:03)
[2018-11-22] MEDS: AMANTADINE HCL 100MG/10 ML UNIT DOSE CUPS GT SCH ×2 (11:04→21:42)
[2018-11-22] MEDS: CEFTAZIDIME/AVIBACTAM 0.94 GM in DEXTROSE 5%-WATER - 100 ML IVPB SCH (11:33)
--- NOTE | 2018-11-22 11:37 | PN ---
Progress Note (short form) - Note Progress Note: NAD opens eyes on vent +edema of arms and legs now on HD Vital Signs Period Temp Pulse Resp BP Sys/Cope Pulse Ox Last 24 Hr 97.5 F-97.8 F 78-114 14-28 92-138/57-98 97 trach to vent eyes open +swelling of arms, hands, legs and feet cor-rrr lungs decreased bs at bases +scrotal edema unstageable sacral ulcer with eschar ext+edema CBC, BMP 11/22/18 07:00 11/22/18 07:00 Microbiology 11/08/18 17:00 Blood - Peripheral Venous Blood Culture - Final NO GROWTH AFTER 5 DAYS INCUBATION 11/08/18 16:35 Blood - Peripheral Venous Blood Culture - Final NO GROWTH AFTER 5 DAYS INCUBATION 11/05/18 15:00 Blood - Peripheral Venous Blood Culture - Final NO GROWTH AFTER 5 DAYS INCUBATION 11/05/18 14:30 Blood - Peripheral Venous Blood Culture - Final NO GROWTH AFTER 5 DAYS INCUBATION 11/06/18 13:00 Sputum - Endotrachea Suction/Ventilator Gram Stain - Final 11/06/18 13:00 Sputum - Endotrachea Suction/Ventilator Sputum Culture - Final Klebsiella Pneumoniae - Esbl Pseudomonas Aeruginosa Proteus Mirabilus - Esbl Produ 11/06/18 18:00 Urine For Antigen Detection Legionella Antigen - Final 11/06/18 18:00 Urine For Antigen Detection Streptococcus pneumoniae Antigen (M - Final 11/05/18 15:00 Urine - Urine - Catheterized Urine Culture - Final Yeast Like Organism Current Medications Amantadine HCl (Symmetrel Oral Solution -) 100 mg GT BID LUCRECIA Last Admin: 11/22/18 11:04 Dose: 100 mg Amiodarone HCl (Cordarone -) 200 mg GT DAILY LUCRECIA Last Admin: 11/22/18 11:03 Dose: 200 mg Carbidopa/Levodopa (Sinemet 25/250 -) 2 each GT TID LUCRECIA Last Admin: 11/22/18 05:07 Dose: 2 each Collagenase (Santyl -) 1 applic TP DAILY LUCRECIA; Protocol Last Admin: 11/21/18 11:12 Dose: 1 applic Ceftazidime/Avibactam 0.94 gm/ (Dextrose) 100 mls @ 50 mls/hr IVPB DAILY LUCRECIA; Protocol Last Admin: 11/22/18 11:33 Dose: 50 mls/hr Latanoprost (Xalatan 0.005% Eye Drops -) 1 drop OU HS [facility] Last Admin: 11/21/18 22:13 Dose: 1 drop Metoprolol Tartrate (Lopressor -) 75 mg GT BID [facility] Last Admin: 11/22/18 11:03 Dose: 75 mg Metoprolol Tartrate (Lopressor Injection -) 5 mg IVPUSH Q4H PRN PRN Reason: TACHYCARDIA Pantoprazole Sodium (Protonix Iv) 40 mg IVPUSH DAILY [facility] Last Admin: 11/22/18 11:03 Dose: 40 mg a/p sepsis-day #14 ceftaz -avibactam- will d/c today and observe suspect cxray findings are partly volume overload chronic resp failure worsening renal failure with anasarca- per renal- now on HD parkinson's disease worsening thrombocytopenia noted- per primary service overall prognosis is poor strict contact isolation for resistant GNR Problem List - Problems (1) Fever Code(s): R50.9 - FEVER, UNSPECIFIED (2) SBO (small bowel obstruction) Code(s): K56.609 - UNSP INTESTNL OBST, UNSP TO PARTIAL VERSUS COMPLETE OBST (3) Pneumonia Code(s): J18.9 - PNEUMONIA, UNSPECIFIED ORGANISM Qualifiers: Pneumonia type: due to unspecified organism Laterality: right Lung location: lower lobe of lung Qualified Code(s): J18.1 - Lobar pneumonia, unspecified organism (4) Chronic respiratory failure Code(s): J96.10 - CHRONIC RESPIRATORY FAILURE, UNSP W HYPOXIA OR HYPERCAPNIA (5) MRSA (methicillin resistant Staphylococcus aureus) colonization Code(s): Z22.322 - CARRIER OR SUSPECTED CARRIER OF METHICILLIN RESIS STAPH
--- NOTE | 2018-11-22 12:02 | PN ---
Progress Note (short form) - Note Progress Note: PULMONARY Vented, arousable. No fevers recorded. Vital Signs Period Temp Pulse Resp BP Sys/Cope Pulse Ox Last 24 Hr 97.5 F-97.8 F 78-114 14-28 92-138/57-98 97 Gen: mildly tachypneic, vented Heart: irregular Lung: scattered rhonchi Abd: soft, nontender Ext: + edema CBC, BMP 11/22/18 07:00 11/22/18 07:00 Active Medications Amantadine HCl (Symmetrel Oral Solution -) 100 mg GT BID [facility] Last Admin: 11/22/18 11:04 Dose: 100 mg Amiodarone HCl (Cordarone -) 200 mg GT DAILY [facility] Last Admin: 11/22/18 11:03 Dose: 200 mg Carbidopa/Levodopa (Sinemet 25/250 -) 2 each GT TID [facility] Last Admin: 11/22/18 05:07 Dose: 2 each Collagenase (Santyl -) 1 applic TP DAILY [facility]; Protocol Last Admin: 11/21/18 11:12 Dose: 1 applic Latanoprost (Xalatan 0.005% Eye Drops -) 1 drop OU HS [facility] Last Admin: 11/21/18 22:13 Dose: 1 drop Metoprolol Tartrate (Lopressor -) 75 mg GT BID [facility] Last Admin: 11/22/18 11:03 Dose: 75 mg Metoprolol Tartrate (Lopressor Injection -) 5 mg IVPUSH Q4H PRN PRN Reason: TACHYCARDIA Pantoprazole Sodium (Protonix Iv) 40 mg IVPUSH DAILY [facility] Last Admin: 11/22/18 11:03 Dose: 40 mg A/P Chronic Respiratory Failure Pneumonia Severe Sepsis Acute Kidney Injury Lactic Acidosis +Troponins likely Demand Ischemia Atrial Fibrillation Thrombocytopenia Anemia COPD HTN Parkinsons Disease - off antibiotics per ID - HD per renal with ultrafiltration - monitor urine output, creatinine - rate control - enteral feeds - DVT/GI prophylaxis - continue discussions regarding goals of care - poor overall prognosis
--- NOTE | 2018-11-22 12:43 | PN ---
Teaching Attending Note Name of Resident: Renate Montilla ATTENDING PHYSICIAN STATEMENT I saw and evaluated the patient. I reviewed the resident's note and discussed the case with the resident. I agree with the resident's findings and plan as documented. SUBJECTIVE:resting comfortable. development of dark urine yesterday, OBJECTIVE: Last Vital Signs Temp Pulse Resp BP Pulse Ox 97.8 F 105 H 14 125/93 97 11/22/18 06:00 11/22/18 10:06 11/22/18 10:06 11/22/18 10:06 11/21/18 21:00 Intake & Output 11/19/18 11/20/18 11/21/18 11/22/18 23:59 23:59 23:59 23:59 Intake Total 770 1540 1585 1300 Output Total 3250 3580 100 3000 Balance -2480 -2040 1485 -1700 General resting comfortable CV S1 s2 tachy lungs decreased breath sounds anteriorly. no wheezing abdomen soft +distended. NT. +tympanic +PEG Extremities 2+ pitting edema B/L UE 1+ pitting edema B/L LE ASSESSMENT AND PLAN: 88 year old male with Parkinson's Disease, COPD, HTN, Atrial Fibrillation, CRF s /p Trach/PEG, presented with fevers/chills, abdominal pain/distension, found to have SBO and sepsis secondary to Pneumonia. 1. Acute on Chronic Respiratory Failure and Severe Sepsis secondary to Pneumonia. s/p trach. vent dependent. +pseudomonas. on ceftazidime day 14. will d/c after today. ID and pulmonary on board 2. [place] due to sepsis/ATN vs contrast induced nephropathy- currently on HD and tolerating. goal of 2.5L removal. continue with HD prn for volume overload. nephro on board 3. Dark Urine- ATN vs hemolyzing vs rhabdo. check myoglobin, will check with Nephro about checking complement and ab. Hgb remaining stable however in light of hematuria and coagulopathic will tranfuse 1 unit PRBC. urology consult. 4. SBO- was resolved, however abdomen feels more tense today. will switch PEG to suction, check AXR to verify. Gi consulted. 5. Volume overload-remains net negative but volume overloaded. tolerated HD. will need continued HD 6. anemia- likely combination of chronic disease. +hematuria. will give 1 unit PRBC in light of active bleeding and coagulopathic. trend Hgb. 7. Elevated INR- unknown cause. vit K x3 given. INR elevated today. will d/w heme about more vit K. HIT panel pending. holding heparin and eliquis. heme on board 8. Dilated CBD/Elevated LFT- possibly due to sepsis and shock liver. LFT improving. GI on board 9. Atrial fibrillation with RVR - resumed on Metoprolol (at increased dose of 75mg BID) and Amiodarone. Transitioned from Heparin drip to Eliquis (now held due to elevated INR and Thrombocytopenia). 10. hemorrhagic bullae- noted on hands. derm consulted 11. Elevated troponin - sec to demand due to sepsis. TnI max 0.07. No further work-up currently. Can follow with cardiology as out-patient. 12. Parkinson's Disease - Continue Sinemet/Amantadine. 13. HTN - BP borderline. Resumed on Metoprolol. 14. Dysphagia s/p PEG 15, Thrombocytopenia- no signs of bleeding. Hematology on board 16. DVT Px - Eliquis held. SCD 17. DNR. poor prognosis. palliative care. possible LTACH referral
--- NOTE | 2018-11-22 13:51 | PN ---
Progress Note, Physician History of Present Illness: Pt seen and examined at bedside. He tolerated HD this morning. - Current Medication List Current Medications: Active Medications Amantadine HCl (Symmetrel Oral Solution -) 100 mg GT BID [facility] Last Admin: 11/22/18 11:04 Dose: 100 mg Amiodarone HCl (Cordarone -) 200 mg GT DAILY [facility] Last Admin: 11/22/18 11:03 Dose: 200 mg Carbidopa/Levodopa (Sinemet 25/250 -) 2 each GT TID [facility] Last Admin: 11/22/18 05:07 Dose: 2 each Collagenase (Santyl -) 1 applic TP DAILY [facility]; Protocol Last Admin: 11/21/18 11:12 Dose: 1 applic Latanoprost (Xalatan 0.005% Eye Drops -) 1 drop OU HS [facility] Last Admin: 11/21/18 22:13 Dose: 1 drop Metoprolol Tartrate (Lopressor -) 75 mg GT BID [facility] Last Admin: 11/22/18 11:03 Dose: 75 mg Metoprolol Tartrate (Lopressor Injection -) 5 mg IVPUSH Q4H PRN PRN Reason: TACHYCARDIA Pantoprazole Sodium (Protonix Iv) 40 mg IVPUSH DAILY [facility] Last Admin: 11/22/18 11:03 Dose: 40 mg - Objective Vital Signs: Vital Signs Temperature 97.8 F 11/22/18 06:00 Pulse Rate 105 H 11/22/18 10:06 Respiratory Rate 18 11/22/18 13:18 Blood Pressure 125/93 11/22/18 10:06 O2 Sat by Pulse Oximetry (%) 97 11/21/18 21:00 Constitutional: Yes: Calm Eyes: Yes: Conjunctiva Clear Neck: Yes: Other (trache) Cardiovascular: Yes: S1, S2 Respiratory: Yes: Mechanically Ventilated, Other Gastrointestinal: Yes: Other (peg) Genitourinary: Yes: [place] Present Musculoskeletal: Yes: Muscle Weakness Edema: Yes Edema: LLE: 1+, RLE: 1+ Neurological: Yes: Confusion Labs: CBC, BMP 11/22/18 07:00 11/22/18 07:00 INR, PTT INR 2.27 (0.83-1.09) H 11/21/18 07:05 Fibrinogen 415.0 mg/dL (238-498) 11/21/18 14:20 Problem List - Problems (1) [place] (acute kidney injury) Code(s): N17.9 - ACUTE KIDNEY FAILURE, UNSPECIFIED (2) Atrial fibrillation with RVR Code(s): I48.91 - UNSPECIFIED ATRIAL FIBRILLATION (3) Ileus Code(s): K56.7 - ILEUS, UNSPECIFIED (4) Sepsis Code(s): A41.9 - SEPSIS, UNSPECIFIED ORGANISM Qualifiers: Sepsis type: sepsis due to unspecified organism Sepsis acute organ dysfunction status: with acute organ dysfunction Severe sepsis acute organ dysfunction type: acute renal failure Acute renal failure type: unspecified Severe sepsis shock status: without septic shock Qualified Code(s): A41.9 - Sepsis, unspecified organism; R65.20 - Severe sepsis without septic shock; N17.9 - Acute kidney failure, unspecified Assessment/Plan Current Medications Generic Name Dose Route Start Last Admin Trade Name Freq PRN Reason Stop Dose Admin Amantadine HCl 100 mg 11/15/18 10:00 11/22/18 11:04 Symmetrel Oral Solution - GT 100 mg BID LUCRECIA Administration Amiodarone HCl 200 mg 11/15/18 10:00 11/22/18 11:03 Cordarone - GT 200 mg DAILY LUCRECIA Administration Carbidopa/Levodopa 2 each 11/15/18 06:00 11/22/18 05:07 Sinemet 25/250 - GT 2 each TID LUCRECIA Administration Collagenase 1 applic 11/15/18 10:00 11/21/18 11:12 Santyl - TP 1 applic DAILY LUCRECIA Administration Protocol Latanoprost 1 drop 11/15/18 22:00 11/21/18 22:13 Xalatan 0.005% Eye Drops - OU 1 drop HS LUCRECIA Administration Metoprolol Tartrate 75 mg 11/15/18 10:00 11/22/18 11:03 Lopressor - GT 75 mg BID LUCRECIA Administration Metoprolol Tartrate 5 mg 11/14/18 23:17 Lopressor Injection - IVPUSH Q4H PRN TACHYCARDIA Pantoprazole Sodium 40 mg 11/15/18 10:00 11/22/18 11:03 Protonix Iv IVPUSH 40 mg DAILY LUCRECIA Administration Impression: 1. [place] 2. sepsis 3. PNA 4. SBO 5. Parkinson's 6. a-fib 7. chronic resp failure 8. severe sepsis 9. lactic acidosis 10. copd 11. hx of htn Plan - HD today - 2.5 l UF - spoke to vascular to change catheter - monitor urine output - will try to make net negative - cont vent support
[2018-11-22 14:00] LABS: INR 1.99 (0.83-1.09); PROTHROMBIN TIME (PATIENT) 23.6 SEC (9.7-13.0)
[2018-11-22 14:03] LABS: ACTIVATED PTT 37.7 SECONDS (25.2-36.5)
[2018-11-22] MEDS: COLLAGENASE CLOSTRIDIUM HIST. 30 GRAMS TUBE TP SCH (18:28)
[2018-11-22 22:02] LABS: BASO % 0.5 % (0-2.0); EOS % 1.5 % (0-4.5); HEMOGLOBIN 8.6 GM/dL (11.7-16.9); LYMPH % 10.6 % (8-40); MCH 29.9 pg (25.7-33.7); MEAN CELL VOLUME 93.2 fl (80-96); MEAN PLT VOLUME 9.4 fl (7.5-11.1); MONO % 7.3 % (3.8-10.2); NEUT % 80.1 % (42.8-82.8); RDW 24.1 % (11.9-15.9); WHITE BLOOD COUNT 13.4 K/mm3 (4.0-10.0)
[2018-11-22 22:15] LABS: PLATELET COUNT 35 K/MM3 (134-434)
[2018-11-22 22:46] LABS: ANISOCYTOSIS 3+; MACROCYTOSIS 3+
[2018-11-22 22:47] LABS: PLATELET ESTIMATE DECREASED; ROULEAU 2+
[2018-11-22] MEDS: LATANOPROST 0.005% OPHTH SOLN 2.5ML BOTTLE OU SCH (23:15)
--- NOTE | 2018-11-23 03:39 | PN ---
Progress Note (short form) - Note Progress Note: Night resident was contacted about critical value of platelets 35. Progress notes from day reviewed. Platelets have been downtrending for a number of days. Patient examined and does not appear have any current sources of bleeding. No blood in stool. No blood around trach site. Urine dark but no bright red blood appreciated. Has diffuse ecchymosis. Likely causes of thrombocytopenia include sepsis, uremia, recent administration of ceftazadime/avibactam. Antibiotics finished. Sepsis resolved. Continue treatment of uremia. Continue workup of HIT. Negative for Hepatitis. Can consider HIV test. CT scan 11/09 showing unremarkable liver and spleen, no splenomegaly. Can consider ultrasound f/u to evaluate spleen. Continue to follow recommendations of hematology/oncology. Trend platelets. No current indication to transfuse platelets. Watch for signs of bleeding and transfuse as necessary. Will endorse events to day team. Case discussed with Dr. Hernandez.
[2018-11-23] MEDS: CARBIDOPA/LEVODOPA 25/250 TABLET (FP) GT SCH ×3 (05:07→21:11)
--- NOTE | 2018-11-23 07:30 | PN ---
Physical Exam: SUBJECTIVE: Patient seen and examined. Pt is on vent and trach. OBJECTIVE: Vital Signs Period Temp Pulse Resp BP Sys/Cope Pulse Ox Last 24 Hr 97.8 F-100.1 F 86-108 14-22 99-138/52-96 98-100 GENERAL: The patient is awake and responsive to auditory stimuli. Appears in no distress. HEAD: Normal with no signs of trauma. EYES: Pupils reactive to light L>R, extraocular movements intact, sclera anicteric, conjunctiva clear. No ptosis. ENT: Ears normal, nares patent, moist mucous membranes. NECK: Tracheostomy in place, limited ROM LUNGS: Decreased breath sounds. no accessory muscle use. HEART: Regular rate and rhythm, S1, S2 without murmur, rub or gallop. ABDOMEN: Moderate distention, tender to deep palpation, hypoactive bowel sounds EXTREMITIES: +2 pitting edema in hands, +2 pitting edema of feet, warm to touch NEUROLOGICAL: can move fingers and toes, follows voices with eyes and head PSYCH: unable to assess SKIN: Warm, dry, significant ecchymosis noted on both hands, bullae present on bilateral dorsal surfaces, with open hemorrhagic wound on right hand Laboratory Results - last 24 hr 11/21/18 11/22/18 11/22/18 14:20 07:00 07:00 WBC 11.9 H RBC 2.41 L Hgb 7.2 L Hct 23.2 L MCV 96.2 H MCH 29.8 MCHC 31.0 L RDW 26.4 H Plt Count 41 L MPV 10.3 Absolute Neuts (auto) Neutrophils % Lymphocytes % Monocytes % Eosinophils % Basophils % Nucleated RBC % Hypochromia Platelet Estimate Polychromasia Anisocytosis Macrocytosis Rouleaux Haptoglobin 113 PT with INR INR PTT (Actin FS) Sodium 140 Potassium 3.3 L Chloride 103 Carbon Dioxide 25 Anion Gap 12 BUN 80.9 H Creatinine 4.1 H Est GFR (CKD-EPI)AfAm 14.08 Est GFR (CKD-EPI)NonAf 12.15 POC Glucometer Random Glucose 113 H Calcium 8.0 L Total Bilirubin 1.1 H AST 17 ALT < 6 L Alkaline Phosphatase 179 H Creatine Kinase Total Protein 5.2 L Albumin 1.8 L Blood Type Antibody Screen Crossmatch 11/22/18 11/22/18 11/22/18 12:00 12:00 12:00 WBC RBC Hgb Hct MCV MCH MCHC RDW Plt Count MPV Absolute Neuts (auto) Neutrophils % Lymphocytes % Monocytes % Eosinophils % Basophils % Nucleated RBC % Hypochromia Platelet Estimate Polychromasia Anisocytosis Macrocytosis Rouleaux Haptoglobin PT with INR 23.60 H INR 1.99 H PTT (Actin FS) 37.7 H Sodium Potassium Chloride Carbon Dioxide Anion Gap BUN Creatinine Est GFR (CKD-EPI)AfAm Est GFR (CKD-EPI)NonAf POC Glucometer Random Glucose Calcium Total Bilirubin AST ALT Alkaline Phosphatase Creatine Kinase 14 L Total Protein Albumin Blood Type O POSITIVE Antibody Screen Negative Crossmatch See Detail 11/22/18 11/22/18 12:32 21:30 WBC 13.4 H RBC 2.90 L Hgb 8.6 L Hct 27.0 L D MCV 93.2 MCH 29.9 MCHC 32.0 RDW 24.1 H Plt Count 35 L* MPV 9.4 Absolute Neuts (auto) 10.8 H Neutrophils % 80.1 Lymphocytes % 10.6 D Monocytes % 7.3 Eosinophils % 1.5 D Basophils % 0.5 Nucleated RBC % 0 Hypochromia 1+ Platelet Estimate Decreased Polychromasia 1+ Anisocytosis 3+ Macrocytosis 3+ Rouleaux 2+ Haptoglobin PT with INR INR PTT (Actin FS) Sodium Potassium Chloride Carbon Dioxide Anion Gap BUN Creatinine Est GFR (CKD-EPI)AfAm Est GFR (CKD-EPI)NonAf POC Glucometer 117 Random Glucose Calcium Total Bilirubin AST ALT Alkaline Phosphatase Creatine Kinase Total Protein Albumin Blood Type Antibody Screen Crossmatch Active Medications Generic Name Dose Route Start Last Admin Trade Name Negritoq PRN Reason Stop Dose Admin Amantadine HCl 100 mg 11/15/18 10:00 11/22/18 21:42 Symmetrel Oral Solution - GT Not Given BID LUCRECIA Amiodarone HCl 200 mg 11/15/18 10:00 11/22/18 11:03 Cordarone - GT 200 mg DAILY LUCRECIA Administration Carbidopa/Levodopa 2 each 11/15/18 06:00 11/23/18 05:07 Sinemet 25/250 - GT Not Given TID LUCRECIA Collagenase 1 applic 11/15/18 10:00 11/22/18 18:28 Santyl - TP 1 applic DAILY LUCRECIA Administration Protocol Latanoprost 1 drop 11/15/18 22:00 11/22/18 23:15 Xalatan 0.005% Eye Drops - OU 1 drop HS LUCRECIA Administration Metoprolol Tartrate 75 mg 11/15/18 10:00 11/22/18 21:42 Lopressor - GT Not Given BID LUCRECIA Metoprolol Tartrate 5 mg 11/14/18 23:17 Lopressor Injection - IVPUSH Q4H PRN TACHYCARDIA Pantoprazole Sodium 40 mg 11/15/18 10:00 11/22/18 11:03 Protonix Iv IVPUSH 40 mg DAILY LUCRECIA Administration ASSESSMENT/PLAN: Mr. Smalls is an 88yo male with Parkinson's, COPD, CHF, HTN, a-fib on Eliquis, respiratory failure with trach and PEG, hx of prostate cancer who presents for abdominal distention and fevers. He was found to be septic 2/2 pneumonia, as well as SBO, and CBD dilation. UA on 11/10/18 resulted in UTI diagnosis. Creatinine was increasing, but has improved since hemodialysis began on 11/19. 1. [place], on HD 3.5/65.5 -yesterday was day 3 of HD, 2.5kg removed yesterday -monitor INR -pt typed and crossed -femoral access for dialysis day, 4 s/p access placed-vascular aware and agree with Dr. Ibrahim to leave line in while waiting for family to decide on plan -plan to remove 2kg of fluid with HD -Nephro following- vascular surgery aware line needs to be replaced, will speak with family about decision before proceeding -CMP 2. SBO pt became more distended, abdominal x-ray done showing possible SBO again, with recommendation for CT per radiology -had 1 BM yesterday -holding tube feeds -holding gt meds -CT ordered with oral contrast -Surgical recs appreciated -GI consulted -discuss goals of care with family 3. anemia Hb 7.2 pre-transfusion, hematuria, FOBT positive -transfuse 1 unit PRBCs- post 8.6, today 8.3 -repeat CBC, reassess 4. hematuria, possibly 2/2 DIC/coagulopathy -urology following 5. acute on chronic hypoxic respiratory failure s/p trach/vent with sepsis 2/2 PNA CXR 4 days ago showed decrease congestion -Tylenol PRN discomfort -leukocytosis 11.2 -fluids being held, limiting drips -blood cultures negative -sputum culture positive Klebsiella, Pseudomonas, Proteus Mirabilus -CT abd/pelvis 11/05/18 showed mod to large pleural effusion on right, moderate on left -Ceftazidime/Avibactam and Flagyl (day 14) post abx day 1 -ID following- d/c abx today and monitor -CBC 6. complicated UTI -galarza in place -abx course completed yesterday 7. acute on chronic diastolic CHF -echo EF 65-70%, no LVH, mild RA dilation, moderate TR, moderate AR, no pericardial effusion -fluids successfully removed during 3 days of HD -no lasix today -no extra fluids -CMP 8. paroxysmal a-fib HR 90s-100s -metoprolol -INR 1.99, Eliquis held -EKG 11/08/18: irregular rhythm, HR 98, QTc 589 -monitor QTc and medications which could increase it 9. thrombocytopenia Plt 32. DIC/coagulopathy -Factors V, VIII, X and XII, mixed PT and PTT LAC studies -monitor for signs of bleeding -HIT negative -type and cross done -heme following 10. elevated INR 1.99 -Eliquis held -heme consulted 11. hypoglycemia BG 100s -BGM-monitor more closely because no feedings -SSI 12. elevated Alk Phos AST <6,ALT 16, Alk Phos 163 -negative FACUNDO, c-ANCA, p-ANCA, DS DNA Ab, GBM Ab, Heparin-induced plt Ab, myeloperoxidase Ab -negative hep B, and hep C, negative hep A IgM -GI following 13. HTN well-controlled, currently on metoprolol -frequent VS checks 14. decubitus ulcer -santyl 15. hemorrhagic bullae -xeroform dressing on right hand -derm consulted 16. COPD RR normal yesterday 17. Parkinson's -continue home meds when receiving feedings 18. hx of prostate cancer -PSA FEN none monitor lytes tube feedings held DVT Ppe SCDs, Eliquis 2.5mg BID- held GI Ppe Protonix- held DNR Visit type - Emergency Visit Emergency Visit: Yes ED Registration Date: 11/05/18 Care time: The patient presented to the Emergency Department on the above date and was hospitalized for further evaluation of their emergent condition. - New Patient This patient is new to me today: No - Critical Care Critical Care patient: No - Discharge Referral Referred to [facility] Med [facility].C[facility] No ATTENDING PHYSICIAN STATEMENT I saw and evaluated the patient. I reviewed the resident's note and discussed the case with the resident. I agree with the resident's findings and plan as documented. SUBJECTIVE: OBJECTIVE: ASSESSMENT AND PLAN:
[2018-11-23 07:55] LABS: BASO % 0.5 % (0-2.0); HEMATOCRIT 25.6 % (35.4-49); HEMOGLOBIN 8.3 GM/dL (11.7-16.9); MCH 29.9 pg (25.7-33.7); MCHC 32.3 g/dl (32.0-35.9); MEAN CELL VOLUME 92.5 fl (80-96); MEAN PLT VOLUME 10.8 fl (7.5-11.1); MONO % 7.3 % (3.8-10.2); NEUT % 82.2 % (42.8-82.8); RBC 2.77 M/mm3 (4.00-5.60); RDW 25.4 % (11.9-15.9); WHITE BLOOD COUNT 11.2 K/mm3 (4.0-10.0)
[2018-11-23 08:33] LABS: ALBUMIN 1.8 g/dl (3.4-5.0); ALK PHOS 163 U/L (45-117); ANION GAP 15 MMOL/L (8-16); BILIRUBIN,TOTAL 1.7 mg/dL (0.2-1); BLOOD UREA NITROGEN 65.5 mg/dL (7-18); CALCIUM 8.2 mg/dL (8.5-10.1); CHLORIDE 101 mmol/L (98-107); CO2 25 mmol/L (21-32); CREATININE 3.5 mg/dL (0.55-1.3); GLUCOSE,RANDOM 87 mg/dL (74-106); POTASSIUM 3.4 mmol/L (3.5-5.1); SGOT/AST 16 U/L (15-37); SGPT/ALT < 6 U/L (13-61); SODIUM 141 mmol/L (136-145); TOT PROT 5.2 g/dl (6.4-8.2)
--- NOTE | 2018-11-23 08:38 | PN ---
Progress Note (short form) - Note Progress Note: Patient seen and examined Eyes open Seems responsive Last Vital Signs Temp Pulse Resp BP Pulse Ox 97.2 F L 98 H 16 124/56 L 98 11/23/18 07:55 11/23/18 07:55 11/23/18 07:55 11/23/18 07:55 11/22/18 21:00 HEENT: MARSH[place], EOM Intact Neck: trach Cor: atrial fib Lungs: poor inspiratory effort Abd: PEG pus around PEG, mild distension, soft , BS present SCD , LE edema Hemorrhagic lesions hands Ecchymoses extremities Heel cushions Current Medications Generic Name Dose Route Start Last Admin Trade Name Freq PRN Reason Stop Dose Admin Amantadine HCl 100 mg 11/15/18 10:00 11/22/18 21:42 Symmetrel Oral Solution - GT Not Given BID LUCRECIA Amiodarone HCl 200 mg 11/15/18 10:00 11/22/18 11:03 Cordarone - GT 200 mg DAILY LUCRECIA Administration Carbidopa/Levodopa 2 each 11/15/18 06:00 11/23/18 05:07 Sinemet 25/250 - GT Not Given TID LUCRECIA Collagenase 1 applic 11/15/18 10:00 11/22/18 18:28 Santyl - TP 1 applic DAILY LUCRECIA Administration Protocol Latanoprost 1 drop 11/15/18 22:00 11/22/18 23:15 Xalatan 0.005% Eye Drops - OU 1 drop HS LUCRECIA Administration Metoprolol Tartrate 75 mg 11/15/18 10:00 11/22/18 21:42 Lopressor - GT Not Given BID LUCRECIA Metoprolol Tartrate 5 mg 11/14/18 23:17 Lopressor Injection - IVPUSH Q4H PRN TACHYCARDIA Pantoprazole Sodium 40 mg 11/15/18 10:00 11/22/18 11:03 Protonix Iv IVPUSH 40 mg DAILY LUCRECIA Administration Impression Sepsis- s/p antibiotic therapy Coagulopathy with elevated PT/PTT Thrombocytopenia Abnormal LFT's Plan Consider Chronic DIC, ongoing infection, liver disease, meds for etiology of thrombocytopenia ((amiadarone < 2% incidence) antibiotics - recently discontinued Elevated PT/PTT - consider Lupus anticoagulant, inhibitor (? acquired FactorVIII) factor deficiency Will plan for mixing studies of PT and PTT LAC, Factor V, VIII, X, and VII to help sort out problem HIT screening - negative No indication for therapy at this time.
[2018-11-23 09:09] LABS: PLATELET COUNT 32 K/MM3 (134-434)
[2018-11-23] MEDS ORDERED: PT OWN MED DRAWER 7, Y5N ONE (11:24)
--- NOTE | 2018-11-23 12:03 | CON.GU ---
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 Cardio/Vascular: Yes: AFIB, HTN Pulmonary: Yes: COPD, Other (chronic resp failure) Gastrointestinal: Yes: Other (peg) - Past Surgical History Additional Surgical History: peg, trache - Alcohol/Substance Use Hx Alcohol Use: No - Smoking History Smoking history: Smoker current status UNK Have you smoked in the past 12 months: No Home Medications - Allergies Allergies/Adverse Reactions: Allergies Allergy/AdvReac Type Severity Reaction Status Date / Time No Known Allergies Allergy Verified 11/05/18 14:35 - Home Medications Home Medications: Ambulatory Orders Acetaminophen [Tylenol] 650 mg GT QID PRN 11/05/18 Albuterol 2.5/Ipratropium 0.5 [Duoneb -] 1 neb IH QID 11/05/18 Amantadine Oral Solution [Symmetrel Oral Solution -] 100 mg GT BID 11/05/18 Amiodarone HCl [Cordarone -] 200 mg GT DAILY 11/05/18 Apixaban [Eliquis -] 5 mg GT BID 11/05/18 Ascorbic Acid 500 mg GT DAILY 11/05/18 Carbidopa/Levodopa 25/250 [Sinemet 25/250 -] 2 each PO TID 11/05/18 Docusate Liquid [Colace Liquid -] 100 mg GT DAILY 11/05/18 Famotidine 20 mg GT DAILY 11/05/18 Furosemide [Lasix -] 40 mg GT DAILY 11/05/18 Homatropine HBr 5% Ophth Soln [Isopto Homatropine] 1 drop OD QID 11/05/18 Latanoprost 0.005% Eye Drops [Xalatan 0.005% Eye Drops -] 1 drop OU HS 11/05/18 Metoprolol Tartrate [Lopressor -] 50 mg GT BID 11/05/18 Multivitamin [Multiple Vitamins] 15 ml GT DAILY 11/05/18 Polyethylene Glycol 3350 [Miralax (For Bowel Prep) -] 17 gm GT DAILY 11/05/18 Tobramycin/Dexamethasone [Tobradex Eye Drops] 1 drop OU BID 11/05/18 Zinc Sulfate [Zinc-220] 220 mg GT DAILY 11/05/18 Physical Exam- Vital Signs: Vital Signs Temperature 97.2 F L 11/23/18 07:55 Pulse Rate 98 H 11/23/18 07:55 Respiratory Rate 16 11/23/18 07:55 Blood Pressure 124/56 L 11/23/18 07:55 O2 Sat by Pulse Oximetry (%) 98 11/22/18 21:00 Labs: CBC, BMP 11/23/18 06:57 11/23/18 06:57 Imaging - Results Ultrasound: Report Reviewed Problem List - Problems (1) Hematuria Assessment/Plan: 88 yo male w mult medical problems w gross hematuria likely secondary to coagulopathy/DIC Galarza pink draining well Bladder non distended Address medical etiology for Hematuria Irrigate galarza prn will follow Code(s): R31.9 - HEMATURIA, UNSPECIFIED
[2018-11-23] MEDS: AMIODARONE HCL 200 MG TABLET (FP) GT SCH (12:15)
[2018-11-23] MEDS: AMANTADINE HCL 100MG/10 ML UNIT DOSE CUPS GT SCH ×2 (12:15→21:11)
[2018-11-23] MEDS: METOPROLOL TARTRATE 25 MG TABLET (FP) GT SCH ×2 (12:15→21:11)
--- NOTE | 2018-11-23 12:34 | PN ---
Progress Note, Physician History of Present Illness: Pt seen and examined at bedside. He remains on vent. He is not responsive. Had a long conversation with his son Tonya and he is considering comfort care. - Current Medication List Current Medications: Active Medications Amantadine HCl (Symmetrel Oral Solution -) 100 mg GT BID [facility] Last Admin: 11/23/18 12:15 Dose: Not Given Amiodarone HCl (Cordarone -) 200 mg GT DAILY [facility] Last Admin: 11/23/18 12:15 Dose: Not Given Carbidopa/Levodopa (Sinemet 25/250 -) 2 each GT TID [facility] Last Admin: 11/23/18 05:07 Dose: Not Given Collagenase (Santyl -) 1 applic TP DAILY [facility]; Protocol Last Admin: 11/22/18 18:28 Dose: 1 applic Latanoprost (Xalatan 0.005% Eye Drops -) 1 drop OU HS [facility] Last Admin: 11/22/18 23:15 Dose: 1 drop Metoprolol Tartrate (Lopressor -) 75 mg GT BID [facility] Last Admin: 11/23/18 12:15 Dose: Not Given Metoprolol Tartrate (Lopressor Injection -) 5 mg IVPUSH Q4H PRN PRN Reason: TACHYCARDIA Pantoprazole Sodium (Protonix Iv) 40 mg IVPUSH DAILY [facility] Last Admin: 11/22/18 11:03 Dose: 40 mg - Objective Vital Signs: Vital Signs Temperature 97.2 F L 11/23/18 07:55 Pulse Rate 98 H 11/23/18 07:55 Respiratory Rate 16 11/23/18 07:55 Blood Pressure 124/56 L 11/23/18 07:55 O2 Sat by Pulse Oximetry (%) 98 11/22/18 21:00 Constitutional: Yes: Calm Neck: Yes: Other (trache) Cardiovascular: Yes: S1, S2 Respiratory: Yes: Mechanically Ventilated Gastrointestinal: Yes: Soft, Other (peg) Genitourinary: Yes: Salguero Present, Oliguria Musculoskeletal: Yes: Muscle Weakness Edema: Yes Edema: LUE: 2+, RUE: 2+, LLE: 1+, RLE: 1+ Neurological: Yes: Lethargy Labs: CBC, BMP 11/23/18 06:57 11/23/18 06:57 INR, PTT INR 1.99 (0.83-1.09) H 11/22/18 12:00 Fibrinogen 415.0 mg/dL (238-498) 11/21/18 14:20 Problem List - Problems (1) [place] (acute kidney injury) Code(s): N17.9 - ACUTE KIDNEY FAILURE, UNSPECIFIED (2) Atrial fibrillation with RVR Code(s): I48.91 - UNSPECIFIED ATRIAL FIBRILLATION (3) Ileus Code(s): K56.7 - ILEUS, UNSPECIFIED (4) Sepsis Code(s): A41.9 - SEPSIS, UNSPECIFIED ORGANISM Qualifiers: Sepsis type: sepsis due to unspecified organism Sepsis acute organ dysfunction status: with acute organ dysfunction Severe sepsis acute organ dysfunction type: acute renal failure Acute renal failure type: unspecified Severe sepsis shock status: without septic shock Qualified Code(s): A41.9 - Sepsis, unspecified organism; R65.20 - Severe sepsis without septic shock; N17.9 - Acute kidney failure, unspecified Assessment/Plan Current Medications Generic Name Dose Route Start Last Admin Trade Name Freq PRN Reason Stop Dose Admin Amantadine HCl 100 mg 11/15/18 10:00 11/23/18 12:15 Symmetrel Oral Solution - GT Not Given BID LUCRECIA Amiodarone HCl 200 mg 11/15/18 10:00 11/23/18 12:15 Cordarone - GT Not Given DAILY LUCRECIA Carbidopa/Levodopa 2 each 11/15/18 06:00 11/23/18 05:07 Sinemet 25/250 - GT Not Given TID LUCRECIA Collagenase 1 applic 11/15/18 10:00 11/22/18 18:28 Santyl - TP 1 applic DAILY LUCRECIA Administration Protocol Latanoprost 1 drop 11/15/18 22:00 11/22/18 23:15 Xalatan 0.005% Eye Drops - OU 1 drop HS LUCRECIA Administration Metoprolol Tartrate 75 mg 11/15/18 10:00 11/23/18 12:15 Lopressor - GT Not Given BID LUCRECIA Metoprolol Tartrate 5 mg 11/14/18 23:17 Lopressor Injection - IVPUSH Q4H PRN TACHYCARDIA Pantoprazole Sodium 40 mg 11/15/18 10:00 11/22/18 11:03 Protonix Iv IVPUSH 40 mg DAILY LUCRECIA Administration Impression: 1. [place] 2. sepsis 3. PNA 4. SBO 5. Parkinson's 6. a-fib 7. chronic resp failure 8. severe sepsis 9. lactic acidosis 10. copd 11. hx of htn 12. thrombocytopenia Plan - pt had HD yesterday - called and discussed care with his son, he is considering comfort measures - spoke to medical team - vent support - on standby for family to decide on GOC - spoke to vascular to change catheter - monitor urine output
[2018-11-23] MEDS: PANTOPRAZOLE SODIUM 40 MG VIAL IVPUSH SCH (13:09)
--- NOTE | 2018-11-23 13:26 | PN ---
Progress Note (short form) - Note Progress Note: PULMONARY Vented on volume assist control. No fevers recorded. Vital Signs Period Temp Pulse Resp BP Sys/Cope Pulse Ox Last 24 Hr 97.2 F-98.6 F 92-103 12-22 99-137/52-90 98 Gen: mildly tachypneic, vented Heart: irregular Lung: scattered rhonchi Abd: soft, nontender Ext: + edema CBC, BMP 11/23/18 06:57 11/23/18 06:57 Active Medications Amantadine HCl (Symmetrel Oral Solution -) 100 mg GT BID [facility] Last Admin: 11/23/18 12:15 Dose: Not Given Amiodarone HCl (Cordarone -) 200 mg GT DAILY [facility] Last Admin: 11/23/18 12:15 Dose: Not Given Carbidopa/Levodopa (Sinemet 25/250 -) 2 each GT TID [facility] Last Admin: 11/23/18 05:07 Dose: Not Given Collagenase (Santyl -) 1 applic TP DAILY [facility]; Protocol Last Admin: 11/22/18 18:28 Dose: 1 applic Latanoprost (Xalatan 0.005% Eye Drops -) 1 drop OU HS [facility] Last Admin: 11/22/18 23:15 Dose: 1 drop Metoprolol Tartrate (Lopressor -) 75 mg GT BID [facility] Last Admin: 11/23/18 12:15 Dose: Not Given Metoprolol Tartrate (Lopressor Injection -) 5 mg IVPUSH Q4H PRN PRN Reason: TACHYCARDIA Pantoprazole Sodium (Protonix Iv) 40 mg IVPUSH DAILY [facility] Last Admin: 11/23/18 13:09 Dose: 40 mg A/P Chronic Respiratory Failure Pneumonia Severe Sepsis Acute Kidney Injury Lactic Acidosis +Troponins likely Demand Ischemia Atrial Fibrillation Thrombocytopenia Anemia COPD HTN Parkinsons Disease - off antibiotics per ID - HD per renal with ultrafiltration - monitor urine output, creatinine - rate control - enteral feeds - DVT/GI prophylaxis - continue discussions regarding goals of care - poor overall prognosis
--- NOTE | 2018-11-23 13:50 | PN ---
Progress Note (short form) - Note Progress Note: VASCULAR SURGERY Day #4 s/p femoral shiley. Still being utilized for HD. Initially contacted by Renal as they wanted our service to exchange the shiley given it's location (groin). His PLTs are 32 and INR [address] Ibrahim, he had a long conversation with family and they are discussing comfort care. Due to above pending consult coupled with low PLTs and ^ INR, will hold off on exchange...Dr. Ibrahim agrees.
[2018-11-23] MEDS: COLLAGENASE CLOSTRIDIUM HIST. 30 GRAMS TUBE TP SCH (14:19)
--- NOTE | 2018-11-23 14:56 | PN ---
Teaching Attending Note Name of Resident: Renate Montilla ATTENDING PHYSICIAN STATEMENT I saw and evaluated the patient. I reviewed the resident's note and discussed the case with the resident. I agree with the resident's findings and plan as documented. SUBJECTIVE: Unable to participate in interview, non-verbal s/p Trach OBJECTIVE: Afebrle, hemodynamicaly stable. Resting. Rousable. Appears comfortable. Last Vital Signs Temp Pulse Resp BP Pulse Ox 97.6 F 103 H 18 137/78 98 11/23/18 09:30 11/23/18 09:30 11/23/18 12:44 11/23/18 09:30 11/22/18 21:00 HEENT - s/p Trach to Vent, FiO2 40%. Heart - S1, S2, SM, irregular Lungs good air entry bilaterally. Abdomen - PEG in situ. Site dressed. No evidence of surrounding cellulitis. Abdo Soft. Appears non-tender. Bowel Sounds normal. Extremities - hemorrhagic bullae and edema UEs, Edema++ LEs. Laboratory Results - last 24 hr 11/21/18 11/22/18 11/22/18 14:20 12:00 21:30 WBC 13.4 H RBC 2.90 L Hgb 8.6 L Hct 27.0 L D MCV 93.2 MCH 29.9 MCHC 32.0 RDW 24.1 H Plt Count 35 L* MPV 9.4 Absolute Neuts (auto) 10.8 H Neutrophils % 80.1 Lymphocytes % 10.6 D Monocytes % 7.3 Eosinophils % 1.5 D Basophils % 0.5 Nucleated RBC % 0 Hypochromia 1+ Platelet Estimate Decreased Polychromasia 1+ Anisocytosis 3+ Macrocytosis 3+ Rouleaux 2+ Haptoglobin 113 Sodium Potassium Chloride Carbon Dioxide Anion Gap BUN Creatinine Est GFR (CKD-EPI)AfAm Est GFR (CKD-EPI)NonAf POC Glucometer Random Glucose Calcium Total Bilirubin AST ALT Alkaline Phosphatase Total Protein Albumin Blood Type O POSITIVE Antibody Screen Negative Crossmatch See Detail 11/23/18 11/23/18 11/23/18 06:57 06:57 12:22 WBC 11.2 H RBC 2.77 L Hgb 8.3 L Hct 25.6 L MCV 92.5 MCH 29.9 MCHC 32.3 RDW 25.4 H Plt Count 32 L* MPV 10.8 D Absolute Neuts (auto) 9.2 H Neutrophils % 82.2 Lymphocytes % 9.0 Monocytes % 7.3 Eosinophils % 1.0 Basophils % 0.5 Nucleated RBC % 0 Hypochromia Platelet Estimate Polychromasia Anisocytosis Macrocytosis Rouleaux Haptoglobin Sodium 141 Potassium 3.4 L Chloride 101 Carbon Dioxide 25 Anion Gap 15 BUN 65.5 H Creatinine 3.5 H Est GFR (CKD-EPI)AfAm 17.05 Est GFR (CKD-EPI)NonAf 14.71 POC Glucometer 79 Random Glucose 87 Calcium 8.2 L Total Bilirubin 1.7 H AST 16 ALT < 6 L Alkaline Phosphatase 163 H Total Protein 5.2 L Albumin 1.8 L Blood Type Antibody Screen Crossmatch Current Medications Generic Name Dose Route Start Last Admin Trade Name Freq PRN Reason Stop Dose Admin Amantadine HCl 100 mg 11/15/18 10:00 11/23/18 12:15 Symmetrel Oral Solution - GT Not Given BID [facility] Amiodarone HCl 200 mg 11/15/18 10:00 11/23/18 12:15 Cordarone - GT Not Given DAILY [facility] Carbidopa/Levodopa 2 each 11/15/18 06:00 11/23/18 14:24 Sinemet 25/250 - GT Not Given TID [facility]CR[facility] Collagenase 1 applic 11/15/18 10:00 11/23/18 14:19 Santyl - TP 1 applic DAILY [facility] Administration Protocol Latanoprost 1 drop 11/15/18 22:00 11/22/18 23:15 Xalatan 0.005% Eye Drops - OU 1 drop HS [facility] Administration Metoprolol Tartrate 75 mg 11/15/18 10:00 11/23/18 12:15 Lopressor - GT Not Given BID [facility] Metoprolol Tartrate 5 mg 11/14/18 23:17 Lopressor Injection - IVPUSH Q4H PRN TACHYCARDIA Pantoprazole Sodium 40 mg 11/15/18 10:00 11/23/18 13:09 Protonix Iv IVPUSH 40 mg DAILY [facility] Administration Home Medications Medication Instructions Recorded Acetaminophen [Tylenol] 650 mg GT QID PRN 11/05/18 Albuterol 2.5/Ipratropium 0.5 1 neb IH QID 11/05/18 [Duoneb -] Amantadine Oral Solution 100 mg GT BID 11/05/18 [Symmetrel Oral Solution -] Amiodarone HCl [Cordarone -] 200 mg GT DAILY 11/05/18 Apixaban [Eliquis -] 5 mg GT BID 11/05/18 Ascorbic Acid 500 mg GT DAILY 11/05/18 Carbidopa/Levodopa 25/250 [Sinemet 2 each PO TID 11/05/18 25/250 -] Docusate Liquid [Colace Liquid -] 100 mg GT DAILY 11/05/18 Famotidine 20 mg GT DAILY 11/05/18 Furosemide [Lasix -] 40 mg GT DAILY 11/05/18 Homatropine HBr 5% Ophth Soln 1 drop OD QID 11/05/18 [Isopto Homatropine] Latanoprost 0.005% Eye Drops 1 drop OU HS 11/05/18 [Xalatan 0.005% Eye Drops -] Metoprolol Tartrate [Lopressor -] 50 mg GT BID 11/05/18 Multivitamin [Multiple Vitamins] 15 ml GT DAILY 11/05/18 Polyethylene Glycol 3350 [Miralax 17 gm GT DAILY 11/05/18 (For Bowel Prep) -] Tobramycin/Dexamethasone [Tobradex 1 drop OU BID 11/05/18 Eye Drops] Zinc Sulfate [Zinc-220] 220 mg GT DAILY 11/05/18 ASSESSMENT AND PLAN: 88 year old male with Parkinson's Disease, COPD, HTN, Atrial Fibrillation, CRF s /p Trach/PEG, presented with fevers/chills, abdominal pain/distension, found to have SBO and sepsis secondary to Pneumonia. 1. Acute on Chronic Respiratory Failure and Severe Sepsis secondary to Pneumonia. s/p tracheostomy, vent dependent. Sputum Cx positive for Pseudomonas - completed 14 days Ceftazidime. Afebrile, hemodynamicaly stable. ID/Pulm following. 2. [place] sec to Sepsis/ATN vs Contrast Nephropathy - initiated on HD/ Ultrafiltration via femoral Cath - repositioning of cath dependent on revisiting /reconsideration of goals of care by family. 3. Hematuria - likely sec to thrombocytopenia and galarza in situ. Urology consulted. s/p 1 unit PRBCs. 4. SBO - recurrent, appears improved today. Feeds not resumed. GI/Surgery following. 5. Anemia - multifactorial - sec to renal failure/sepsis/acute blood loss (sec to Hematuria) - s/p 1 unit PRBCs. Follow H/H. 6. Coagulopathy - Elevated INR - s/p Vitamin K. Hematology following. For further investigation including Lupus anticoagulant, mixing studies of PT and PTT LAC, Factor V, VIII, X, and VII 7. Thrombocytopenia - etiology unclear - HIT work-up negative. ?Amio ?Abx. Hematology following. 8. Elevated LFTs - secondary to sepsis/shock liver. LFT improving. GI following. 9. Atrial fibrillation with RVR - resumed on Metoprolol (at increased dose of 75mg BID) and Amiodarone. Transitioned from Heparin drip to Eliquis (now held due to elevated INR and Thrombocytopenia). 10. Hemorrhagic Bullae - noted on hands. Dermatology consulted, has not seen. Will monitor. 11. Elevated Troponin - sec to demand due to sepsis. TnI max 0.07. No further work-up currently. Can follow with cardiology as out-patient. 12. Parkinson's Disease - Continue Sinemet/Amantadine. 13. HTN - BP borderline. Resumed on Metoprolol. 14. Dysphagia s/p PEG - feeds on hold currently due to SBO. DVT Px - Eliquis held. SCDs Code Status - DNR. Poor prognosis. Palliative care consulted. For revisiting of Goals of Care and possible comfort measures.
[2018-11-23] MEDS ORDERED: SODIUM CHLORIDE 250 ML IV PRN (19:49)
[2018-11-23] MEDS: LATANOPROST 0.005% OPHTH SOLN 2.5ML BOTTLE OU SCH (21:11)
[2018-11-24] MEDS: CARBIDOPA/LEVODOPA 25/250 TABLET (FP) GT SCH ×3 (05:17→21:04)
[2018-11-24] MEDS ORDERED: DEXTROSE 50%-WATER - 25 GM/50 ML VIAL IVPUSH ONE ×2 (06:59→13:19)
[2018-11-24] MEDS ORDERED: DEXTROSE 50%-WATER 25 GM/50 ML DISP.SYRIN ONE (07:16)
[2018-11-24] MEDS ORDERED: DEXTROSE 50%-WATER 25 GM/50 ML DISP.SYRIN IVPUSH ONE (07:30)
[2018-11-24 07:36] LABS: BASO % 0.3 % (0-2.0); EOS % 0.8 % (0-4.5); HEMATOCRIT 24.8 % (35.4-49); HEMOGLOBIN 8.1 GM/dL (11.7-16.9); MCH 30.4 pg (25.7-33.7); MCHC 32.7 g/dl (32.0-35.9); MEAN CELL VOLUME 92.9 fl (80-96); MEAN PLT VOLUME 10.1 fl (7.5-11.1); MONO % 7.6 % (3.8-10.2); NEUT % 83.3 % (42.8-82.8); PLATELET COUNT 45 K/MM3 (134-434); RBC 2.68 M/mm3 (4.00-5.60); RDW 26.3 % (11.9-15.9); WHITE BLOOD COUNT 10.9 K/mm3 (4.0-10.0)
--- NOTE | 2018-11-24 07:37 | PN ---
Physical Exam: SUBJECTIVE: Patient seen and examined. He is non-verbal on vent and trach. OBJECTIVE: Vital Signs Period Temp Pulse Resp BP Sys/Cope Pulse Ox Last 24 Hr 97.2 F-98.3 F 83-115 12- 117-137/49-78 98 GENERAL: The patient is awake and responsive to auditory stimuli. Appears in no distress. HEAD: Normal with no signs of trauma. EYES: Pupils reactive to light L>R, extraocular movements intact, sclera anicteric, conjunctiva clear. No ptosis. ENT: Ears normal, nares patent, moist mucous membranes. NECK: Tracheostomy in place, limited ROM LUNGS: Decreased breath sounds. no accessory muscle use. HEART: Regular rate and rhythm, S1, S2 without murmur, rub or gallop. ABDOMEN: Moderate distention, tender to deep palpation, hypoactive bowel sounds EXTREMITIES: +2 pitting edema in hands, +2 pitting edema of feet, warm to touch NEUROLOGICAL: can move fingers and toes, follows voices with eyes and head PSYCH: unable to assess SKIN: Warm, dry, significant ecchymosis noted on both hands, bullae present on bilateral dorsal surfaces, with open hemorrhagic wound on right hand Laboratory Results - last 24 hr 11/23/18 11/23/18 11/23/18 06:57 06:57 06:57 WBC 11.2 H RBC 2.77 L Hgb 8.3 L Hct 25.6 L MCV 92.5 MCH 29.9 MCHC 32.3 RDW 25.4 H Plt Count 32 L* MPV 10.8 D Absolute Neuts (auto) 9.2 H Neutrophils % 82.2 Lymphocytes % 9.0 Monocytes % 7.3 Eosinophils % 1.0 Basophils % 0.5 Nucleated RBC % 0 Sodium 141 Potassium 3.4 L Chloride 101 Carbon Dioxide 25 Anion Gap 15 BUN 65.5 H Creatinine 3.5 H Est GFR (CKD-EPI)AfAm 17.05 Est GFR (CKD-EPI)NonAf 14.71 POC Glucometer Random Glucose 87 Calcium 8.2 L Total Bilirubin 1.7 H AST 16 ALT < 6 L Alkaline Phosphatase 163 H Total Protein 5.2 L Albumin 1.8 L Prostate Specific Ag 11.70 H 11/23/18 11/24/18 12:22 06:06 WBC RBC Hgb Hct MCV MCH MCHC RDW Plt Count MPV Absolute Neuts (auto) Neutrophils % Lymphocytes % Monocytes % Eosinophils % Basophils % Nucleated RBC % Sodium Potassium Chloride Carbon Dioxide Anion Gap BUN Creatinine Est GFR (CKD-EPI)AfAm Est GFR (CKD-EPI)NonAf POC Glucometer 79 66 Random Glucose Calcium Total Bilirubin AST ALT Alkaline Phosphatase Total Protein Albumin Prostate Specific Ag Active Medications Generic Name Dose Route Start Last Admin Trade Name Freq PRN Reason Stop Dose Admin Albumin Human 12.5 gm 11/24/18 20:00 Albumin Human 25% IVPB Q30M [facility] Amantadine HCl 100 mg 11/15/18 10:00 11/23/18 21:11 Symmetrel Oral Solution - GT Not Given BID [facility] Amiodarone HCl 200 mg 11/15/18 10:00 11/23/18 12:15 Cordarone - GT Not Given DAILY [facility] Carbidopa/Levodopa 2 each 11/15/18 06:00 11/24/18 05:17 Sinemet 25/250 - GT Not Given TID [facility] Collagenase 1 applic 11/15/18 10:00 11/23/18 14:19 Santyl - TP 1 applic DAILY [facility]CR[facility] Administration Protocol Sodium Chloride 250 mls @ 3,000 mls/hr 11/23/18 19:49 Normal Saline - IV 11/24/18 19:49 PRN PRN Hypotension during Dialysis Latanoprost 1 drop 11/15/18 22:00 11/23/18 21:11 Xalatan 0.005% Eye Drops - OU 1 drop HS [facility] Administration Metoprolol Tartrate 75 mg 11/15/18 10:00 11/23/18 21:11 Lopressor - GT Not Given BID [facility] Metoprolol Tartrate 5 mg 11/14/18 23:17 Lopressor Injection - IVPUSH Q4H PRN TACHYCARDIA Pantoprazole Sodium 40 mg 11/15/18 10:00 11/23/18 13:09 Protonix Iv IVPUSH 40 mg DAILY [facility] Administration ASSESSMENT/PLAN: Mr. Smalls is an 88yo male with Parkinson's, COPD, CHF, HTN, a-fib on Eliquis, respiratory failure with trach and PEG, hx of prostate cancer who presents for abdominal distention and fevers. He was found to be septic 2/2 pneumonia, as well as SBO, and CBD dilation. UA on 11/10/18 resulted in UTI diagnosis. Creatinine was increasing, but has improved since hemodialysis began on 11/19. The family, palliative care, and the medicine team met this afternoon to discuss goals of care. The patient will receive dialysis 2 days from now according to schedule (Thursday), and the family will decide over the weekend if they want to continue HD. Speech consult placed to determine if there is a way for patient to communicate with family via communication board or something similar. 1. [place], on HD 70.9/3.9 -pt received 4th HD tx today -monitor INR -pt typed and crossed -femoral line for dialysis used today will be replaced by vascular surgery -Nephro following- HD on Thursday -CMP 2. SBO, resolved pt became more distended over the last 4-5 days, CT showed slightly increased bowel dilation compared to previous exam but no SBO -restart tube feeds -restart gt meds -rectal tube placed -Surgical recs appreciated -GI consulted -discuss goals of care with family 3. anemia Hb 8.1 with recent hematuria, FOBT positive -transfuse 1 unit PRBCs 2 days ago -repeat CBC, reassess 4. hematuria, possibly 2/2 DIC/coagulopathy -urology following 5. acute on chronic hypoxic respiratory failure s/p trach/vent with sepsis 2/2 PNA CXR 5 days ago showed decrease congestion -Tylenol PRN discomfort -leukocytosis 10.9 -fluids being held, limiting drips -blood cultures negative -sputum culture positive Klebsiella, Pseudomonas, Proteus Mirabilus -CT abd/pelvis 11/05/18 showed mod to large pleural effusion on right, moderate on left -Ceftazidime/Avibactam and Flagyl x 14 days completed -ID following -Pulm following -CBC 6. complicated UTI -galarza in place 7. acute on chronic diastolic CHF -echo EF 65-70%, no LVH, mild RA dilation, moderate TR, moderate AR, no pericardial effusion -fluids successfully removed during previous HD sessions -Lasix has been held -no extra fluids -CMP 8. paroxysmal a-fib HR 100s -metoprolol has been held -INR 1.99, Eliquis held -EKG 11/08/18: irregular rhythm, HR 98, QTc 589 -monitor QTc and medications which could increase it 9. thrombocytopenia Plt 45. DIC/coagulopathy -Factors V, VIII, X and XII, mixed PT and PTT LAC studies pending -monitor for signs of bleeding -HIT negative -type and cross done -heme following 10. elevated INR 1.99 -Eliquis held -heme consulted 11. hypoglycemia BG 66 last night -given dextrose -BGM-monitor more closely because no feedings -SSI 12. elevated Alk Phos AST 17, ALT <6, Alk Phos 167 -negative FACUNDO, c-ANCA, p-ANCA, DS DNA Ab, GBM Ab, Heparin-induced plt Ab, myeloperoxidase Ab -negative hep B, and hep C, negative hep A IgM -GI following 13. HTN well-controlled, currently on metoprolol -frequent VS checks 14. decubitus ulcer -santyl 15. hemorrhagic bullae -xeroform dressing on right hand -derm consulted 16. COPD RR normal yesterday. on ventilator. 17. Parkinson's -continue home meds when receiving feedings 18. hx of prostate cancer -PSA FEN none monitor lytes tube feedings held DVT Ppe SCDs, Eliquis 2.5mg BID- held GI Ppe Protonix- held DNR Visit type - Emergency Visit Emergency Visit: Yes ED Registration Date: 11/05/18 Care time: The patient presented to the Emergency Department on the above date and was hospitalized for further evaluation of their emergent condition. - New Patient This patient is new to me today: No - Critical Care Critical Care patient: No - Discharge Referral Referred to [facility] Med [facility].C[facility] No ATTENDING PHYSICIAN STATEMENT I saw and evaluated the patient. I reviewed the resident's note and discussed the case with the resident. I agree with the resident's findings and plan as documented. SUBJECTIVE: OBJECTIVE: ASSESSMENT AND PLAN:
[2018-11-24 08:14] LABS: ALBUMIN 1.8 g/dl (3.4-5.0); ALK PHOS 167 U/L (45-117); ANION GAP 16 MMOL/L (8-16); BILIRUBIN,TOTAL 1.7 mg/dL (0.2-1); BLOOD UREA NITROGEN 70.9 mg/dL (7-18); CALCIUM 8.2 mg/dL (8.5-10.1); CHLORIDE 101 mmol/L (98-107); CO2 23 mmol/L (21-32); CREATININE 3.9 mg/dL (0.55-1.3); GLUCOSE,RANDOM 68 mg/dL (74-106); POTASSIUM 3.4 mmol/L (3.5-5.1); SGOT/AST 17 U/L (15-37); SGPT/ALT < 6 U/L (13-61); SODIUM 139 mmol/L (136-145); TOT PROT 5.4 g/dl (6.4-8.2)
[2018-11-24] MEDS: AMANTADINE HCL 100MG/10 ML UNIT DOSE CUPS GT SCH ×2 (10:13→21:04)
[2018-11-24] MEDS: PANTOPRAZOLE SODIUM 40 MG VIAL IVPUSH SCH (10:13)
[2018-11-24] MEDS: AMIODARONE HCL 200 MG TABLET (FP) GT SCH (10:14)
[2018-11-24] MEDS: METOPROLOL TARTRATE 25 MG TABLET (FP) GT SCH ×2 (10:14→21:04)
--- NOTE | 2018-11-24 12:55 | PN ---
Progress Note, Physician History of Present Illness: Pt seen and examined at bedside. No great change in status. Family would like to continue HD. - Current Medication List Current Medications: Active Medications Albumin Human (Albumin Human 25%) 12.5 gm IVPB Q30M [facility] Stop: 11/24/18 14:31 Amantadine HCl (Symmetrel Oral Solution -) 100 mg GT BID [facility] Last Admin: 11/24/18 10:13 Dose: Not Given Amiodarone HCl (Cordarone -) 200 mg GT DAILY [facility] Last Admin: 11/24/18 10:14 Dose: Not Given Carbidopa/Levodopa (Sinemet 25/250 -) 2 each GT TID [facility] Last Admin: 11/24/18 05:17 Dose: Not Given Collagenase (Santyl -) 1 applic TP DAILY [facility]; Protocol Last Admin: 11/23/18 14:19 Dose: 1 applic Sodium Chloride (Normal Saline -) 250 mls @ 3,000 mls/hr IV PRN PRN PRN Reason: Hypotension during Dialysis Stop: 11/24/18 19:49 Latanoprost (Xalatan 0.005% Eye Drops -) 1 drop OU HS [facility] Last Admin: 11/23/18 21:11 Dose: 1 drop Metoprolol Tartrate (Lopressor -) 75 mg GT BID [facility] Last Admin: 11/24/18 10:14 Dose: Not Given Metoprolol Tartrate (Lopressor Injection -) 5 mg IVPUSH Q4H PRN PRN Reason: TACHYCARDIA Pantoprazole Sodium (Protonix Iv) 40 mg IVPUSH DAILY [facility] Last Admin: 11/24/18 10:13 Dose: 40 mg - Objective Vital Signs: Vital Signs Temperature 98.6 F 11/24/18 09:00 Pulse Rate 108 H 11/24/18 09:00 Respiratory Rate 11/24/18 11:36 Blood Pressure 121/52 L 11/24/18 09:00 O2 Sat by Pulse Oximetry (%) 100 11/24/18 11:36 Constitutional: Yes: Calm Neck: Yes: Other (trache) Cardiovascular: Yes: S1, S2 Respiratory: Yes: Intubated, Mechanically Ventilated Gastrointestinal: Yes: Soft Genitourinary: Yes: Salguero Present, Hematuria, Oliguria Musculoskeletal: Yes: Muscle Weakness Edema: Yes Edema: LUE: 2+, RUE: 2+, LLE: 1+, RLE: 1+ Integumentary: Yes: Bruising Neurological: Yes: Lethargy, Pre-Existing Deficit Labs: CBC, BMP 11/24/18 06:00 11/24/18 06:00 INR, PTT INR 1.99 (0.83-1.09) H 11/22/18 12:00 Fibrinogen 415.0 mg/dL (238-498) 11/21/18 14:20 - ....Imaging Cat Scan: Report Reviewed Problem List - Problems (1) [place] (acute kidney injury) Code(s): N17.9 - ACUTE KIDNEY FAILURE, UNSPECIFIED (2) Atrial fibrillation with RVR Code(s): I48.91 - UNSPECIFIED ATRIAL FIBRILLATION (3) Ileus Code(s): K56.7 - ILEUS, UNSPECIFIED (4) Sepsis Code(s): A41.9 - SEPSIS, UNSPECIFIED ORGANISM Qualifiers: Sepsis type: sepsis due to unspecified organism Sepsis acute organ dysfunction status: with acute organ dysfunction Severe sepsis acute organ dysfunction type: acute renal failure Acute renal failure type: unspecified Severe sepsis shock status: without septic shock Qualified Code(s): A41.9 - Sepsis, unspecified organism; R65.20 - Severe sepsis without septic shock; N17.9 - Acute kidney failure, unspecified Assessment/Plan Current Medications Generic Name Dose Route Start Last Admin Trade Name Freq PRN Reason Stop Dose Admin Albumin Human 12.5 gm 11/24/18 13:00 Albumin Human 25% IVPB 11/24/18 14:31 Q30M [facility] Amantadine HCl 100 mg 11/15/18 10:00 11/24/18 10:13 Symmetrel Oral Solution - GT Not Given BID [facility] Amiodarone HCl 200 mg 11/15/18 10:00 11/24/18 10:14 Cordarone - GT Not Given DAILY [facility] Carbidopa/Levodopa 2 each 11/15/18 06:00 11/24/18 05:17 Sinemet 25/250 - GT Not Given TID [facility] Collagenase 1 applic 11/15/18 10:00 11/23/18 14:19 Santyl - TP 1 applic DAILY [facility]CR[facility] Administration Protocol Sodium Chloride 250 mls @ 3,000 mls/hr 11/23/18 19:49 Normal Saline - IV 11/24/18 19:49 PRN PRN Hypotension during Dialysis Latanoprost 1 drop 11/15/18 22:00 11/23/18 21:11 Xalatan 0.005% Eye Drops - OU 1 drop HS [facility] Administration Metoprolol Tartrate 75 mg 11/15/18 10:00 11/24/18 10:14 Lopressor - GT Not Given BID [facility] Metoprolol Tartrate 5 mg 11/14/18 23:17 Lopressor Injection - IVPUSH Q4H PRN TACHYCARDIA Pantoprazole Sodium 40 mg 11/15/18 10:00 11/24/18 10:13 Protonix Iv IVPUSH 40 mg DAILY [facility]CRECIA Administration Laboratory Tests 11/11/18 11/11/18 11/14/18 11:20 11:20 12:20 JENNIFER M-Aleksandr Not observed FACUNDO Screen Negative c-ANCA <1:20 Proteinase 3 (PR3) <3.5 p-ANCA <1:20 Atypical p-ANCA <1:20 Myeloperoxidase Ab <9.0 Double Strand DNA Ab <1 Glomerular Base Memb Ab 3 Heparin-Ind Plt Ab Scrn 0.347 Impression: 1. [place] 2. sepsis 3. PNA 4. SBO 5. Parkinson's 6. a-fib 7. chronic resp failure 8. severe sepsis 9. lactic acidosis 10. copd 11. hx of htn 12. thrombocytopenia Plan - pt for HD today - spoke to family again last night and they want another HD session today - family meeting today at 2 for [facility] - discussed with medical team - d/c femoral after HD - if family want HD pt will need permacath - ct abd neg for obstruction - monitor platelets - monitor urine output
[2018-11-24] MEDS: ALBUMIN HUMAN 25% 12.5 GM/50 ML VIAL IVPB SCH ×4 (13:15→14:45)
--- NOTE | 2018-11-24 14:29 | PN ---
Progress Note, Physician History of Present Illness: PULMONARY AWAKE COMFORTABLE ON VENT SUPPORT AC MODE. PT CURRENTLY ON HD - Current Medication List Current Medications: Active Medications Albumin Human (Albumin Human 25%) 12.5 gm IVPB Q30M [facility] Stop: 11/24/18 14:31 Amantadine HCl (Symmetrel Oral Solution -) 100 mg GT BID [facility] Last Admin: 11/24/18 10:13 Dose: Not Given Amiodarone HCl (Cordarone -) 200 mg GT DAILY [facility] Last Admin: 11/24/18 10:14 Dose: Not Given Carbidopa/Levodopa (Sinemet 25/250 -) 2 each GT TID [facility] Last Admin: 11/24/18 05:17 Dose: Not Given Collagenase (Santyl -) 1 applic TP DAILY [facility]; Protocol Last Admin: 11/23/18 14:19 Dose: 1 applic Sodium Chloride (Normal Saline -) 250 mls @ 3,000 mls/hr IV PRN PRN PRN Reason: Hypotension during Dialysis Stop: 11/24/18 19:49 Latanoprost (Xalatan 0.005% Eye Drops -) 1 drop OU HS [facility] Last Admin: 11/23/18 21:11 Dose: 1 drop Metoprolol Tartrate (Lopressor -) 75 mg GT BID [facility] Last Admin: 11/24/18 10:14 Dose: Not Given Metoprolol Tartrate (Lopressor Injection -) 5 mg IVPUSH Q4H PRN PRN Reason: TACHYCARDIA Pantoprazole Sodium (Protonix Iv) 40 mg IVPUSH DAILY [facility] Last Admin: 11/24/18 10:13 Dose: 40 mg - Objective Vital Signs: Vital Signs Temperature 98.6 F 11/24/18 09:00 Pulse Rate 108 H 11/24/18 09:00 Respiratory Rate 11/24/18 11:36 Blood Pressure 121/52 L 11/24/18 09:00 O2 Sat by Pulse Oximetry (%) 100 11/24/18 11:36 Constitutional: Yes: Well Nourished, Calm Eyes: Yes: WNL HENT: Yes: WNL Neck: Yes: Supple (TRACH) Cardiovascular: Yes: Pulse Irregular, S1, S2 Respiratory: Yes: Rhonchi (FEW RHONCHI) Gastrointestinal: Yes: Normal Bowel Sounds, Soft Extremities: Yes: WNL Edema: Yes Labs: CBC, BMP 11/24/18 06:00 11/24/18 06:00 INR, PTT INR 1.99 (0.83-1.09) H 11/22/18 12:00 Fibrinogen 415.0 mg/dL (238-498) 11/21/18 14:20 - ....Imaging Cat Scan: Report Reviewed, Image Reviewed Problem List - Problems (1) Atrial fibrillation with RVR Code(s): I48.91 - UNSPECIFIED ATRIAL FIBRILLATION (2) Chronic respiratory failure Code(s): J96.10 - CHRONIC RESPIRATORY FAILURE, UNSP W HYPOXIA OR HYPERCAPNIA (3) Sepsis Code(s): A41.9 - SEPSIS, UNSPECIFIED ORGANISM Qualifiers: Sepsis type: sepsis due to unspecified organism Sepsis acute organ dysfunction status: with acute organ dysfunction Severe sepsis acute organ dysfunction type: acute renal failure Acute renal failure type: unspecified Severe sepsis shock status: without septic shock Qualified Code(s): A41.9 - Sepsis, unspecified organism; R65.20 - Severe sepsis without septic shock; N17.9 - Acute kidney failure, unspecified (4) Parkinson disease Code(s): G20 - PARKINSON'S DISEASE (5) Pneumonitis Code(s): J18.9 - PNEUMONIA, UNSPECIFIED ORGANISM Assessment/Plan ASSESSMENT AND PLAN: Chronic Respiratory Failure Pneumonia Severe Sepsis Acute Kidney Injury Lactic Acidosis +Troponins likely Demand Ischemia Atrial Fibrillation COPD HTN Parkinsons Disease - HD as per renal - rate control - enteral feeds - DVT/GI prophylaxis - continue discussions regarding goals of care DR ARELLANO
[2018-11-24] MEDS: COLLAGENASE CLOSTRIDIUM HIST. 30 GRAMS TUBE TP SCH (17:45)
--- NOTE | 2018-11-24 17:54 | PN ---
Teaching Attending Note Name of Resident: Renate Montilla ATTENDING PHYSICIAN STATEMENT I saw and evaluated the patient. I reviewed the resident's note and discussed the case with the resident. I agree with the resident's findings and plan as documented. SUBJECTIVE: Unable to participate in interview, non-verbal s/p Trach OBJECTIVE: Afebrile, hemodynamically stable. Appears comfortable. Awake. Last Vital Signs Temp Pulse Resp BP Pulse Ox 98.6 F 97 H 25 H 133/85 100 11/24/18 09:00 11/24/18 16:00 11/24/18 16:45 11/24/18 16:00 11/24/18 11:36 HEENT - s/p Trach to Vent, FiO2 40%. Heart - S1, S2, SM, irregular. Lungs - good air entry bilaterally with basal crackles. Abdomen - PEG in situ. Site dressed. No evidence of surrounding cellulitis. Abdo Soft. Appears non-tender. Bowel Sounds normal. Extremities - hemorrhagic bullae and edema UEs, Edema+ LEs. Laboratory Results - last 24 hr 11/22/18 11/22/18 11/23/18 09:00 12:00 06:57 WBC RBC Hgb Hct MCV MCH MCHC RDW Plt Count MPV Absolute Neuts (auto) Neutrophils % Lymphocytes % Monocytes % Eosinophils % Basophils % Nucleated RBC % Sodium Potassium Chloride Carbon Dioxide Anion Gap BUN Creatinine Est GFR (CKD-EPI)AfAm Est GFR (CKD-EPI)NonAf POC Glucometer Random Glucose Calcium Total Bilirubin AST ALT Alkaline Phosphatase Total Protein Albumin Prostate Specific Ag 11.70 H Urine Myoglobin 3 3 11/24/18 11/24/18 11/24/18 06:00 06:00 06:06 WBC 10.9 H RBC 2.68 L Hgb 8.1 L Hct 24.8 L MCV 92.9 MCH 30.4 MCHC 32.7 RDW 26.3 H Plt Count 45 L D MPV 10.1 Absolute Neuts (auto) 9.1 H Neutrophils % 83.3 H Lymphocytes % 8.0 Monocytes % 7.6 Eosinophils % 0.8 Basophils % 0.3 Nucleated RBC % 0 Sodium 139 Potassium 3.4 L Chloride 101 Carbon Dioxide 23 Anion Gap 16 BUN 70.9 H Creatinine 3.9 H Est GFR (CKD-EPI)AfAm 14.96 Est GFR (CKD-EPI)NonAf 12.91 POC Glucometer 66 Random Glucose 68 L Calcium 8.2 L Total Bilirubin 1.7 H AST 17 ALT < 6 L Alkaline Phosphatase 167 H Total Protein 5.4 L Albumin 1.8 L Prostate Specific Ag Urine Myoglobin 11/24/18 11/24/18 11/24/18 09:00 10:34 12:34 WBC RBC Hgb Hct MCV MCH MCHC RDW Plt Count MPV Absolute Neuts (auto) Neutrophils % Lymphocytes % Monocytes % Eosinophils % Basophils % Nucleated RBC % Sodium Potassium Chloride Carbon Dioxide Anion Gap BUN Creatinine Est GFR (CKD-EPI)AfAm Est GFR (CKD-EPI)NonAf POC Glucometer 74 71 80 Random Glucose Calcium Total Bilirubin AST ALT Alkaline Phosphatase Total Protein Albumin Prostate Specific Ag Urine Myoglobin 11/24/18 16:34 WBC RBC Hgb Hct MCV MCH MCHC RDW Plt Count MPV Absolute Neuts (auto) Neutrophils % Lymphocytes % Monocytes % Eosinophils % Basophils % Nucleated RBC % Sodium Potassium Chloride Carbon Dioxide Anion Gap BUN Creatinine Est GFR (CKD-EPI)AfAm Est GFR (CKD-EPI)NonAf POC Glucometer 75 Random Glucose Calcium Total Bilirubin AST ALT Alkaline Phosphatase Total Protein Albumin Prostate Specific Ag Urine Myoglobin Current Medications Generic Name Dose Route Start Last Admin Trade Name Freq PRN Reason Stop Dose Admin Amantadine HCl 100 mg 11/15/18 10:00 11/24/18 10:13 Symmetrel Oral Solution - GT Not Given BID LUCRECIA Amiodarone HCl 200 mg 11/15/18 10:00 11/24/18 10:14 Cordarone - GT Not Given DAILY LUCRECIA Carbidopa/Levodopa 2 each 11/15/18 06:00 11/24/18 15:08 Sinemet 25/250 - GT Not Given TID LUCRECIA Collagenase 1 applic 11/15/18 10:00 11/24/18 17:45 Santyl - TP Not Given DAILY [facility] Protocol Sodium Chloride 250 mls @ 3,000 mls/hr 11/23/18 19:49 Normal Saline - IV 11/24/18 19:49 PRN PRN Hypotension during Dialysis Latanoprost 1 drop 11/15/18 22:00 11/23/18 21:11 Xalatan 0.005% Eye Drops - OU 1 drop HS LUCRECIA Administration Metoprolol Tartrate 75 mg 11/15/18 10:00 11/24/18 10:14 Lopressor - GT Not Given BID [facility] Metoprolol Tartrate 5 mg 11/14/18 23:17 Lopressor Injection - IVPUSH Q4H PRN TACHYCARDIA Pantoprazole Sodium 40 mg 11/15/18 10:00 11/24/18 10:13 Protonix Iv IVPUSH 40 mg DAILY [facility] Administration Home Medications Medication Instructions Recorded Acetaminophen [Tylenol] 650 mg GT QID PRN 11/05/18 Albuterol 2.5/Ipratropium 0.5 1 neb IH QID 11/05/18 [Duoneb -] Amantadine Oral Solution 100 mg GT BID 11/05/18 [Symmetrel Oral Solution -] Amiodarone HCl [Cordarone -] 200 mg GT DAILY 11/05/18 Apixaban [Eliquis -] 5 mg GT BID 11/05/18 Ascorbic Acid 500 mg GT DAILY 11/05/18 Carbidopa/Levodopa 25/250 [Sinemet 2 each PO TID 11/05/18 25/250 -] Docusate Liquid [Colace Liquid -] 100 mg GT DAILY 11/05/18 Famotidine 20 mg GT DAILY 11/05/18 Furosemide [Lasix -] 40 mg GT DAILY 11/05/18 Homatropine HBr 5% Ophth Soln 1 drop OD QID 11/05/18 [Isopto Homatropine] Latanoprost 0.005% Eye Drops 1 drop OU HS 11/05/18 [Xalatan 0.005% Eye Drops -] Metoprolol Tartrate [Lopressor -] 50 mg GT BID 11/05/18 Multivitamin [Multiple Vitamins] 15 ml GT DAILY 11/05/18 Polyethylene Glycol 3350 [Miralax 17 gm GT DAILY 11/05/18 (For Bowel Prep) -] Tobramycin/Dexamethasone [Tobradex 1 drop OU BID 11/05/18 Eye Drops] Zinc Sulfate [Zinc-220] 220 mg GT DAILY 11/05/18 ASSESSMENT AND PLAN: 88 year old male with Parkinson's Disease, COPD, HTN, Atrial Fibrillation, CRF s /p Trach/PEG, presented with fevers/chills, abdominal pain/distension, found to have SBO and sepsis secondary to Pneumonia. 1. Acute on Chronic Respiratory Failure and Severe Sepsis secondary to Pneumonia. s/p tracheostomy, vent dependent. Sputum Cx positive for Pseudomonas - completed 14 days Ceftazidime. Afebrile, hemodynamicaly stable. ID/Pulm following. 2. [place] with fluid overload, sec to Sepsis/ATN vs Contrast Nephropathy - initiated on HD/Ultrafiltration via femoral Cath - for exchange of catheter - surgery contacted. CT shows somw ongoing bilateral pleural effusions. 3. Hematuria - likely sec to thrombocytopenia and galarza in situ. Urology consulted. s/p 1 unit PRBCs. 4. SBO - recurrent, appears improved today. CT A/P shows no further obstruction. Will resume feeds. Surgery following. 5. Anemia - multifactorial - sec to renal failure/sepsis/acute blood loss (sec to Hematuria) - s/p 1 unit PRBCs. Follow H/H. 6. Coagulopathy - Elevated INR - s/p Vitamin K. Hematology following. For further investigation including Lupus anticoagulant, mixing studies of PT and PTT LAC, Factor V, VIII, X, and VII 7. Thrombocytopenia - etiology unclear - HIT work-up negative. ?Amio ?Abx. Hematology following. Will monitor. 8. Elevated LFTs - secondary to sepsis/shock liver. Transaminases normalized. GI evaluated. 9. Atrial fibrillation with RVR - resumed on Metoprolol (at increased dose of 75mg BID) and Amiodarone. Transitioned from Heparin drip to Eliquis (now held due to elevated INR and Thrombocytopenia). 10. Hemorrhagic Bullae - noted on hands. Dermatology consulted, has not seen. Will monitor. 11. Elevated Troponin - sec to demand due to sepsis. TnI max 0.07. No further work-up currently. Can follow with cardiology as out-patient. 12. Parkinson's Disease - Continue Sinemet/Amantadine. 13. HTN - BP borderline. Resumed on Metoprolol. 14. Dysphagia s/p PEG - feeds held due to SBO, will resume. DVT Px - Eliquis held. SCDs. Code Status - DNR. Poor prognosis. Palliative care consulted. Family meeting held to revisit Goals of Care - son/grandchildren are requesting 2 more sessions of HD and the observation of renal function prior to decision regarding whether to withdraw HD and initiate possible comfort measures. Will follow daily with family and further discussions regarding goals of care in coming days.
--- NOTE | 2018-11-24 19:44 | PN ---
Progress Note (short form) - Note Progress Note: Patient seen and examined Developed hematuria Given one unit of packed cells o platelets given HD administered If hematuria persists- will need plattelet infusions Mixing studies pending LAC pending Factor studies - XII and XIII not requested but drawn- requested Factor VIII and VII. Await studies Transfuse platelets prn significant hematuria and drop in Hct.
[2018-11-24] MEDS ORDERED: PT OWN MED DRAWER 7, Y5N ONE (20:54)
[2018-11-24] MEDS: LATANOPROST 0.005% OPHTH SOLN 2.5ML BOTTLE OU SCH (21:04)
[2018-11-25] MEDS: CARBIDOPA/LEVODOPA 25/250 TABLET (FP) GT SCH ×3 (05:35→22:26)
--- NOTE | 2018-11-25 06:44 | PN ---
Physical Exam: SUBJECTIVE: Patient seen and examined. Pt is non-verbal on trach and vent. OBJECTIVE: I/O -1960 yesterday Vital Signs Period Temp Pulse Resp BP Sys/Cope Pulse Ox Last 24 Hr 97.6 F-98.9 F 20-126 18-25 99-133/52-102 100-100 GENERAL: The patient is awake and responsive to auditory stimuli. Appears in no distress. HEAD: Normal with no signs of trauma. EYES: Pupils reactive to light, extraocular movements intact, sclera anicteric, conjunctiva clear. No ptosis. ENT: Ears normal, nares patent, dry mucous membranes and tongue. NECK: Tracheostomy in place, limited ROM LUNGS: Decreased breath sounds. no accessory muscle use. HEART: Regular rate and rhythm, S1, S2 without murmur, rub or gallop. ABDOMEN: Moderate distention more pronounced on left, tender to deep palpation, hypoactive bowel sounds EXTREMITIES: +2 pitting edema in hands, +2 pitting edema of feet, warm to touch NEUROLOGICAL: can move fingers and toes, follows voices with eyes and head PSYCH: unable to assess SKIN: Warm, very dry, significant ecchymosis noted on both hands, bullae present on bilateral dorsal surfaces, with open hemorrhagic wound on right hand Laboratory Results - last 24 hr 11/22/18 11/22/18 11/24/18 09:00 12:00 06:00 WBC 10.9 H RBC 2.68 L Hgb 8.1 L Hct 24.8 L MCV 92.9 MCH 30.4 MCHC 32.7 RDW 26.3 H Plt Count 45 L D MPV 10.1 Absolute Neuts (auto) 9.1 H Neutrophils % 83.3 H Lymphocytes % 8.0 Monocytes % 7.6 Eosinophils % 0.8 Basophils % 0.3 Nucleated RBC % 0 Sodium Potassium Chloride Carbon Dioxide Anion Gap BUN Creatinine Est GFR (CKD-EPI)AfAm Est GFR (CKD-EPI)NonAf POC Glucometer Random Glucose Calcium Total Bilirubin AST ALT Alkaline Phosphatase Total Protein Albumin Urine Myoglobin 3 3 11/24/18 11/24/18 11/24/18 06:00 09:00 10:34 WBC RBC Hgb Hct MCV MCH MCHC RDW Plt Count MPV Absolute Neuts (auto) Neutrophils % Lymphocytes % Monocytes % Eosinophils % Basophils % Nucleated RBC % Sodium 139 Potassium 3.4 L Chloride 101 Carbon Dioxide 23 Anion Gap 16 BUN 70.9 H Creatinine 3.9 H Est GFR (CKD-EPI)AfAm 14.96 Est GFR (CKD-EPI)NonAf 12.91 POC Glucometer 74 71 Random Glucose 68 L Calcium 8.2 L Total Bilirubin 1.7 H AST 17 ALT < 6 L Alkaline Phosphatase 167 H Total Protein 5.4 L Albumin 1.8 L Urine Myoglobin 11/24/18 11/24/18 11/24/18 12:34 16:34 22:36 WBC RBC Hgb Hct MCV MCH MCHC RDW Plt Count MPV Absolute Neuts (auto) Neutrophils % Lymphocytes % Monocytes % Eosinophils % Basophils % Nucleated RBC % Sodium Potassium Chloride Carbon Dioxide Anion Gap BUN Creatinine Est GFR (CKD-EPI)AfAm Est GFR (CKD-EPI)NonAf POC Glucometer 80 75 91 Random Glucose Calcium Total Bilirubin AST ALT Alkaline Phosphatase Total Protein Albumin Urine Myoglobin 11/25/18 06:01 WBC RBC Hgb Hct MCV MCH MCHC RDW Plt Count MPV Absolute Neuts (auto) Neutrophils % Lymphocytes % Monocytes % Eosinophils % Basophils % Nucleated RBC % Sodium Potassium Chloride Carbon Dioxide Anion Gap BUN Creatinine Est GFR (CKD-EPI)AfAm Est GFR (CKD-EPI)NonAf POC Glucometer 112 Random Glucose Calcium Total Bilirubin AST ALT Alkaline Phosphatase Total Protein Albumin Urine Myoglobin Active Medications Generic Name Dose Route Start Last Admin Trade Name Freq PRN Reason Stop Dose Admin Amantadine HCl 100 mg 11/15/18 10:00 11/24/18 21:04 Symmetrel Oral Solution - GT 100 mg BID LUCRECIA Administration Amiodarone HCl 200 mg 11/15/18 10:00 11/24/18 10:14 Cordarone - GT Not Given DAILY LUCRECIA Carbidopa/Levodopa 2 each 11/15/18 06:00 11/25/18 05:35 Sinemet 25/250 - GT 2 each TID LUCRECIA Administration Collagenase 1 applic 11/15/18 10:00 11/24/18 17:45 Santyl - TP Not Given DAILY [facility] Protocol Latanoprost 1 drop 11/15/18 22:00 11/24/18 21:04 Xalatan 0.005% Eye Drops - OU 1 drop HS LUCRECIA Administration Metoprolol Tartrate 75 mg 11/15/18 10:00 11/24/18 21:04 Lopressor - GT 75 mg BID LUCRECIA Administration Metoprolol Tartrate 5 mg 11/14/18 23:17 Lopressor Injection - IVPUSH Q4H PRN TACHYCARDIA Pantoprazole Sodium 40 mg 11/15/18 10:00 11/24/18 10:13 Protonix Iv IVPUSH 40 mg DAILY LUCRECIA Administration ASSESSMENT/PLAN: Mr. Smalls is an 88yo male with Parkinson's, COPD, CHF, HTN, a-fib on Eliquis, respiratory failure with trach and PEG, hx of prostate cancer who presents for abdominal distention and fevers. He was found to be septic 2/2 pneumonia, as well as SBO, and CBD dilation. UA on 11/10/18 resulted in UTI diagnosis. Creatinine was increasing, but has improved since hemodialysis began on 11/19. The family, palliative care, and the medicine team met yesterday to discuss goals of care. The patient will receive dialysis tomorrow according to schedule (Thursday), and the family will decide over the weekend if they want to continue HD. Speech consult placed to determine if there is a way for patient to communicate with family via communication board or something similar. 1. [place], on HD 44.8/3.2 -pt received 4th HD tx yesterday -monitor INR -pt typed and crossed -femoral line for dialysis will be replaced by vascular surgery -Nephro following- HD on Thursday -CMP 2. SBO, resolved pt became more distended over the last week, CT showed slightly increased bowel dilation compared to previous exam but no SBO -restart tube feeds -restart gt meds -rectal tube placed -Surgical recs appreciated -GI consulted -discuss goals of care with family 3. anemia Hb 7.7 with recent hematuria, FOBT positive -transfuse 1 unit PRBCs 2 days ago -repeat CBC, reassess -heme following 4. hematuria, possibly 2/2 DIC/coagulopathy -urology following 5. acute on chronic hypoxic respiratory failure s/p trach/vent with sepsis 2/2 PNA CXR 5 days ago showed decrease congestion -Tylenol PRN discomfort -leukocytosis 8.3 -fluids being held, limiting drips -blood cultures negative -sputum culture positive Klebsiella, Pseudomonas, Proteus Mirabilus -CT abd/pelvis 11/05/18 showed mod to large pleural effusion on right, moderate on left -Ceftazidime/Avibactam and Flagyl x 14 days completed -ID following -Pulm following -CBC 6. complicated UTI -galarza in place 7. acute on chronic diastolic CHF -echo EF 65-70%, no LVH, mild RA dilation, moderate TR, moderate AR, no pericardial effusion -fluids successfully removed during previous HD sessions -Lasix has been held -no extra fluids -CMP 8. paroxysmal a-fib HR 100s -metoprolol has been held -INR 1.99, Eliquis held -EKG 11/08/18: irregular rhythm, HR 98, QTc 589 -monitor QTc and medications which could increase it 9. thrombocytopenia Plt 49. DIC/coagulopathy -Factors V, VIII, X and XII, mixed PT and PTT LAC studies pending -monitor for signs of bleeding -HIT negative -type and cross done -heme following 10. elevated INR 1.99 -Eliquis held -heme following 11. hypoglycemia BG 117 -feedings restarted yesterday -SSI 12. transaminitis, Alk Phos AST 18, ALT 8, Alk Phos 155 -negative FACUNDO, c-ANCA, p-ANCA, DS DNA Ab, GBM Ab, Heparin-induced plt Ab, myeloperoxidase Ab -negative hep B, and hep C, negative hep A IgM -GI following 13. HTN well-controlled, currently on metoprolol -frequent VS checks 14. decubitus ulcer -santyl 15. hemorrhagic bullae -xeroform dressing on right hand -derm consulted 16. COPD RR normal yesterday. on ventilator. 17. Parkinson's -continue home meds when receiving feedings 18. hx of prostate cancer -PSA FEN none monitor lytes tube feedings held DVT Ppe SCDs, Eliquis 2.5mg BID- held GI Ppe Protonix- held DNR Visit type - Emergency Visit Emergency Visit: Yes ED Registration Date: 11/05/18 Care time: The patient presented to the Emergency Department on the above date and was hospitalized for further evaluation of their emergent condition. - New Patient This patient is new to me today: No - Critical Care Critical Care patient: No - Discharge Referral Referred to [facility] Med P.C.: No ATTENDING PHYSICIAN STATEMENT I saw and evaluated the patient. I reviewed the resident's note and discussed the case with the resident. I agree with the resident's findings and plan as documented. SUBJECTIVE: OBJECTIVE: ASSESSMENT AND PLAN:
[2018-11-25 08:21] LABS: BASO % 0.5 % (0-2.0); EOS % 1.2 % (0-4.5); HEMATOCRIT 23.6 % (35.4-49); HEMOGLOBIN 7.7 GM/dL (11.7-16.9); LYMPH % 11.6 % (8-40); MCH 30.7 pg (25.7-33.7); MCHC 32.7 g/dl (32.0-35.9); MEAN PLT VOLUME 10.6 fl (7.5-11.1); MONO % 10.1 % (3.8-10.2); NEUT % 76.6 % (42.8-82.8); PLATELET COUNT 49 K/MM3 (134-434); RBC 2.52 M/mm3 (4.00-5.60); RDW 27.3 % (11.9-15.9); WHITE BLOOD COUNT 8.3 K/mm3 (4.0-10.0)
[2018-11-25 08:25] LABS: ALBUMIN 2.2 g/dl (3.4-5.0); BILIRUBIN,TOTAL 1.5 mg/dL (0.2-1); BLOOD UREA NITROGEN 44.8 mg/dL (7-18); CALCIUM 8.4 mg/dL (8.5-10.1); CREATININE 3.2 mg/dL (0.55-1.3); TOT PROT 5.5 g/dl (6.4-8.2)
[2018-11-25] MEDS: AMIODARONE HCL 200 MG TABLET (FP) GT SCH (09:20)
[2018-11-25] MEDS: METOPROLOL TARTRATE 25 MG TABLET (FP) GT SCH ×2 (09:20→22:26)
[2018-11-25] MEDS: COLLAGENASE CLOSTRIDIUM HIST. 30 GRAMS TUBE TP SCH (09:21)
[2018-11-25] MEDS: AMANTADINE HCL 100MG/10 ML UNIT DOSE CUPS GT SCH ×2 (09:21→22:27)
[2018-11-25] MEDS: PANTOPRAZOLE SODIUM 40 MG VIAL IVPUSH SCH (09:21)
[2018-11-25] MEDS ORDERED: PT OWN MED DRAWER 7, Y5N ONE ×3 (11:51→22:24)
--- NOTE | 2018-11-25 12:36 | PN ---
Progress Note (short form) - Note Progress Note: PULMONARY Vented on volume assist control. No fevers recorded. Awake, no attempts at vocalization. Vital Signs Period Temp Pulse Resp BP Sys/Cope Pulse Ox Last 24 Hr 97.6 F-98.9 F 20-126 14-25 99-133/54-102 100-100 Gen: mildly tachypneic, vented Heart: irregular Lung: scattered rhonchi Abd: soft, nontender Ext: + edema CBC, BMP 11/25/18 05:30 11/25/18 05:30 Active Medications Amantadine HCl (Symmetrel Oral Solution -) 100 mg GT BID [facility] Last Admin: 11/25/18 09:21 Dose: 100 mg Amiodarone HCl (Cordarone -) 200 mg GT DAILY [facility] Last Admin: 11/25/18 09:20 Dose: 200 mg Carbidopa/Levodopa (Sinemet 25/250 -) 2 each GT TID [facility] Last Admin: 11/25/18 05:35 Dose: 2 each Collagenase (Santyl -) 1 applic TP DAILY [facility]; Protocol Last Admin: 11/25/18 09:21 Dose: 1 applic Latanoprost (Xalatan 0.005% Eye Drops -) 1 drop OU HS [facility] Last Admin: 11/24/18 21:04 Dose: 1 drop Metoprolol Tartrate (Lopressor -) 75 mg GT BID [facility] Last Admin: 11/25/18 09:20 Dose: 75 mg Metoprolol Tartrate (Lopressor Injection -) 5 mg IVPUSH Q4H PRN PRN Reason: TACHYCARDIA Pantoprazole Sodium (Protonix Iv) 40 mg IVPUSH DAILY [facility] Last Admin: 11/25/18 09:21 Dose: 40 mg A/P Chronic Respiratory Failure Pneumonia Severe Sepsis Acute Kidney Injury Lactic Acidosis +Troponins likely Demand Ischemia Atrial Fibrillation Thrombocytopenia Anemia COPD HTN Parkinsons Disease - off antibiotics per ID - HD per renal with ultrafiltration - monitor urine output, creatinine - rate control - enteral feeds - DVT/GI prophylaxis - continue discussions regarding goals of care - poor overall prognosis, recommend comfort measures
--- NOTE | 2018-11-25 12:44 | CONSULT ---
Admitting History and Physical - Primary Care Physician PCP: Sergey Hernandes - Admission History of Present Illness: Admission note 11/05 88 y/o male with PMH of Parkinson's, COPD, CHF, HTN, afib (on eliquis) respiratory failure with trach and PEG tube, remote history of prostate ca around 15-20 years ago, presented to the ED with worsening abdominal distention since yesterday. as per patients son and the ED staff, patient was recently at [facility] for sepsis 2/2 UTI (was there starting the end of August where he was intubated and placed in their ICU for 3 weeks where the trach and peg were subsequently placed) and he was discharged to [facility]. About 11 days ago again urinary issues took place, in addition to what seemed to be an infectious process around his trach and he was sent sent to [facility] and then was discharged yesterday to [facility]. 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 His mental status was at baseline yesterday- he was following commands, trying to speak very alert and awake. The son as well as his daughter and the [facility] home staf noticed that his fathers abdomen was looking more distended today unclear when patient's last bowel movement was, the son said that about 6 days ago he had some vomiting had monte and they did not feed him for a day or so, otherwise, he is usnure in regards to his bowel movements. 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 - General Mental Status: Awake and Alert, Flat Affect (Establishes eye contact, limited initiation of speech, occasional, but unintelligible. On Ventilator. Reduced articulatory excursion.) Attention: Mild Impairment, Moderate Impairment Ability to Follow Directions: Poor (only squeezes and releases hand.Unable to protrude tongue upon command- ddx-impaired comprehension vs apraxia vs sec to PD (received PD meds yesterday and today)) Head/Neck Control: Fair - Hearing Hearing: Functional Speech Evaluation - Communication Oral Expression Ability: Yes: Non-Vocal (vent.Occasional articulates.) - Speech Production Intelligibility: Yes: Severely Impaired - Language/Verbal Expression Functional Communication Status: Yes: Severely Impaired - Swallow Evaluation/Bedside Assessment Current Nutritional Intake: G Tube Against Resistance Opening: Weak Against Resistance Closing: Weak Pucker Lips: Weak Smile: Weak Lingual Speed of Movement: Reduced Laryngeal Movement: Able to Palpate Recommendations - Speech Evaluation, Impression/Plan Impression: Asked to assess use of comm board. Bilateral UE weakness, unable to pouint. Attempted use of eyegaze with large print YES/NO on separate papers in [place] language. Unable. Seems confused. Attempts to occasionally mouth words.Granddaughter greatly wants to communicate with her grandfather. Evaluation requested by Palliative care. Reviewed with PMD/Pulmonary. - Dysphagia Impressions/Plan Swallowing Skills: Impaired *Silent aspiration: cannot be R/O at bedside Recommendations: [place] Valve (trial. guarded outcome but will try tomorrow after HD.)
--- NOTE | 2018-11-25 14:04 | PN ---
Teaching Attending Note Name of Resident: Renate Montilla ATTENDING PHYSICIAN STATEMENT I saw and evaluated the patient. I reviewed the resident's note and discussed the case with the resident. I agree with the resident's findings and plan as documented. SUBJECTIVE: Unable to participate in interview, non-verbal s/p Trach OBJECTIVE: Afebrile, hemodynamically stable. Appears comfortable. Awake. Last Vital Signs Temp Pulse Resp BP Pulse Ox 98.9 F 94 H 18 102/54 L 100 11/25/18 07:54 11/25/18 08:09 11/25/18 12:14 11/25/18 07:54 11/25/18 08:09 HEENT - s/p Trach to Vent, FiO2 40%. Heart - S1, S2, SM, irregular. Lungs - good air entry bilaterally with basal crackles. Abdomen - PEG in situ. Site dressed. No evidence of surrounding cellulitis. Abdo Soft. Appears non-tender. Bowel Sounds normal. Rectal tube in place. - Galarza in situ, dark colored urine. Extremities - hemorrhagic bullae and edema UEs, Edema+ LEs. Laboratory Results - last 24 hr 11/22/18 11/22/18 11/24/18 09:00 12:00 09:00 WBC RBC Hgb Hct MCV MCH MCHC RDW Plt Count MPV Absolute Neuts (auto) Neutrophils % Lymphocytes % Monocytes % Eosinophils % Basophils % Nucleated RBC % Sodium Potassium Chloride Carbon Dioxide Anion Gap BUN Creatinine Est GFR (CKD-EPI)AfAm Est GFR (CKD-EPI)NonAf POC Glucometer 74 Random Glucose Calcium Total Bilirubin AST ALT Alkaline Phosphatase Total Protein Albumin Urine Myoglobin 3 3 11/24/18 11/24/18 11/25/18 16:34 22:36 05:30 WBC 8.3 RBC 2.52 L Hgb 7.7 L Hct 23.6 L MCV 94.0 MCH 30.7 MCHC 32.7 RDW 27.3 H Plt Count 49 L MPV 10.6 Absolute Neuts (auto) 6.4 Neutrophils % 76.6 Lymphocytes % 11.6 D Monocytes % 10.1 Eosinophils % 1.2 Basophils % 0.5 Nucleated RBC % 0 Sodium Potassium Chloride Carbon Dioxide Anion Gap BUN Creatinine Est GFR (CKD-EPI)AfAm Est GFR (CKD-EPI)NonAf POC Glucometer 75 91 Random Glucose Calcium Total Bilirubin AST ALT Alkaline Phosphatase Total Protein Albumin Urine Myoglobin 11/25/18 11/25/18 11/25/18 05:30 06:01 11:00 WBC RBC Hgb Hct MCV MCH MCHC RDW Plt Count MPV Absolute Neuts (auto) Neutrophils % Lymphocytes % Monocytes % Eosinophils % Basophils % Nucleated RBC % Sodium 141 Potassium 3.0 L Chloride 101 Carbon Dioxide 29 Anion Gap 12 BUN 44.8 H Creatinine 3.2 H Est GFR (CKD-EPI)AfAm 19.00 Est GFR (CKD-EPI)NonAf 16.39 POC Glucometer 112 117 Random Glucose 109 H Calcium 8.4 L Total Bilirubin 1.5 H AST 18 ALT 8 L Alkaline Phosphatase 155 H Total Protein 5.5 L Albumin 2.2 L Urine Myoglobin Current Medications Generic Name Dose Route Start Last Admin Trade Name Freq PRN Reason Stop Dose Admin Amantadine HCl 100 mg 11/15/18 10:00 11/25/18 09:21 Symmetrel Oral Solution - GT 100 mg BID LUCRECIA Administration Amiodarone HCl 200 mg 11/15/18 10:00 11/25/18 09:20 Cordarone - GT 200 mg DAILY LUCRECIA Administration Carbidopa/Levodopa 2 each 11/15/18 06:00 11/25/18 05:35 Sinemet 25/250 - GT 2 each TID LUCRECIA Administration Collagenase 1 applic 11/15/18 10:00 11/25/18 09:21 Santyl - TP 1 applic DAILY LUCRECIA Administration Protocol Latanoprost 1 drop 11/15/18 22:00 11/24/18 21:04 Xalatan 0.005% Eye Drops - OU 1 drop HS LUCRECIA Administration Metoprolol Tartrate 75 mg 11/15/18 10:00 11/25/18 09:20 Lopressor - GT 75 mg BID LUCRECIA Administration Metoprolol Tartrate 5 mg 11/14/18 23:17 Lopressor Injection - IVPUSH Q4H PRN TACHYCARDIA Pantoprazole Sodium 40 mg 11/15/18 10:00 11/25/18 09:21 Protonix Iv IVPUSH 40 mg DAILY LUCRECIA Administration Home Medications Medication Instructions Recorded Acetaminophen [Tylenol] 650 mg GT QID PRN 11/05/18 Albuterol 2.5/Ipratropium 0.5 1 neb IH QID 11/05/18 [Duoneb -] Amantadine Oral Solution 100 mg GT BID 11/05/18 [Symmetrel Oral Solution -] Amiodarone HCl [Cordarone -] 200 mg GT DAILY 11/05/18 Apixaban [Eliquis -] 5 mg GT BID 11/05/18 Ascorbic Acid 500 mg GT DAILY 11/05/18 Carbidopa/Levodopa 25/250 [Sinemet 2 each PO TID 11/05/18 25/250 -] Docusate Liquid [Colace Liquid -] 100 mg GT DAILY 11/05/18 Famotidine 20 mg GT DAILY 11/05/18 Furosemide [Lasix -] 40 mg GT DAILY 11/05/18 Homatropine HBr 5% Ophth Soln 1 drop OD QID 11/05/18 [Isopto Homatropine] Latanoprost 0.005% Eye Drops 1 drop OU HS 11/05/18 [Xalatan 0.005% Eye Drops -] Metoprolol Tartrate [Lopressor -] 50 mg GT BID 11/05/18 Multivitamin [Multiple Vitamins] 15 ml GT DAILY 11/05/18 Polyethylene Glycol 3350 [Miralax 17 gm GT DAILY 11/05/18 (For Bowel Prep) -] Tobramycin/Dexamethasone [Tobradex 1 drop OU BID 11/05/18 Eye Drops] Zinc Sulfate [Zinc-220] 220 mg GT DAILY 11/05/18 ASSESSMENT AND PLAN: 88 year old male with Parkinson's Disease, COPD, HTN, Atrial Fibrillation, CRF s /p Trach (Vent dependent)/PEG, presented with fevers/chills, abdominal pain/ distension, found to have SBO and sepsis secondary to Pneumonia. 1. Acute on Chronic Respiratory Failure and Severe Sepsis secondary to Pneumonia. s/p tracheostomy, vent dependent. Sputum Cx positive for Pseudomonas - completed 14 days Ceftazidime. Afebrile, hemodynamicaly stable. Sepsis resolved. ID/Pulm following. 2. [place] with fluid overload, sec to Sepsis/ATN vs Contrast Nephropathy - initiated on HD/Ultrafiltration via femoral Cath - for exchange of catheter - surgery requested for catheter exchange. CT shows some ongoing bilateral pleural effusions. 3. Hematuria - likely sec to thrombocytopenia and galarza in situ. Urology consulted. s/p 1 unit PRBCs. H.H 7.7/23.6. Will monitor. 4. SBO - recurrent, appears improved today. CT A/P shows no further obstruction. Feeds resumed. Surgery following. 5. Anemia - multifactorial - sec to renal failure/sepsis/acute blood loss (sec to Hematuria) - s/p 1 unit PRBCs. Follow H/H. 6. Coagulopathy - Elevated INR - s/p Vitamin K. Hematology following. For further investigation including Lupus anticoagulant, mixing studies of PT and PTT LAC, Factor V, VIII, X, and VII 7. Thrombocytopenia - etiology unclear - HIT work-up negative. ?Amio ?Abx. Hematology following. Will monitor. 8. Elevated LFTs - secondary to sepsis/shock liver. Transaminases normalized. GI evaluated. 9. Atrial fibrillation with RVR - resumed on Metoprolol (at increased dose of 75mg BID) and Amiodarone. Transitioned from Heparin drip to Eliquis (now held due to elevated INR and Thrombocytopenia). 10. Hemorrhagic Bullae - noted on hands. Dermatology consulted, has not seen. Will monitor. 11. Elevated Troponin - sec to demand due to sepsis. TnI max 0.07. No further work-up currently. Can follow with cardiology as out-patient. 12. Parkinson's Disease - Continue Sinemet/Amantadine. 13. HTN - BP borderline. Resumed on Metoprolol. 14. Dysphagia s/p PEG - on enteral feeds via PEG. DVT Px - Eliquis held. SCDs. Code Status - DNR. Poor prognosis. Palliative care consulted. Family meeting held 11/24/18 to revisit Goals of Care - son/grandchildren are requested 2 more sessions of HD and the observation of renal function prior to decision regarding whether to withdraw HD and initiate possible comfort measures. Will follow daily with family and further discussions regarding goals of care in coming days.
[2018-11-25] MEDS ORDERED: POTASSIUM CHLORIDE ORAL LIQUID 20 MEQ/15 ML PEG ONE (19:09)
--- NOTE | 2018-11-25 19:13 | PN ---
Progress Note, Physician History of Present Illness: Pt seen and examined at bedside. He is more awake today. - Current Medication List Current Medications: Active Medications Amantadine HCl (Symmetrel Oral Solution -) 100 mg GT BID [facility] Last Admin: 11/25/18 09:21 Dose: 100 mg Amiodarone HCl (Cordarone -) 200 mg GT DAILY [facility] Last Admin: 11/25/18 09:20 Dose: 200 mg Carbidopa/Levodopa (Sinemet 25/250 -) 2 each GT TID LUCRECIA Last Admin: 11/25/18 14:21 Dose: 2 each Collagenase (Santyl -) 1 applic TP DAILY [facility]; Protocol Last Admin: 11/25/18 09:21 Dose: 1 applic Latanoprost (Xalatan 0.005% Eye Drops -) 1 drop OU HS [facility] Last Admin: 11/24/18 21:04 Dose: 1 drop Metoprolol Tartrate (Lopressor -) 75 mg GT BID [facility] Last Admin: 11/25/18 09:20 Dose: 75 mg Metoprolol Tartrate (Lopressor Injection -) 5 mg IVPUSH Q4H PRN PRN Reason: TACHYCARDIA Pantoprazole Sodium (Protonix Iv) 40 mg IVPUSH DAILY [facility] Last Admin: 11/25/18 09:21 Dose: 40 mg - Objective Vital Signs: Vital Signs Temperature 98.4 F 11/25/18 18:36 Pulse Rate 96 H 11/25/18 18:36 Respiratory Rate 16 11/25/18 18:36 Blood Pressure 116/74 11/25/18 18:36 O2 Sat by Pulse Oximetry (%) 100 11/25/18 10:00 Constitutional: Yes: Calm Eyes: Yes: Conjunctiva Clear HENT: Yes: Atraumatic Neck: Yes: Supple Cardiovascular: Yes: S1, S2 Respiratory: Yes: Mechanically Ventilated Gastrointestinal: Yes: Soft, Other (peg) Genitourinary: Yes: Salguero Present, Oliguria Musculoskeletal: Yes: Muscle Weakness Edema: Yes Edema: LLE: 1+, RLE: 1+ Neurological: Yes: Other (awake) Labs: CBC, BMP 11/25/18 05:30 11/25/18 05:30 INR, PTT INR 1.99 (0.83-1.09) H 11/22/18 12:00 Fibrinogen 415.0 mg/dL (238-498) 11/21/18 14:20 Problem List - Problems (1) [place] (acute kidney injury) Code(s): N17.9 - ACUTE KIDNEY FAILURE, UNSPECIFIED (2) Atrial fibrillation with RVR Code(s): I48.91 - UNSPECIFIED ATRIAL FIBRILLATION (3) Ileus Code(s): K56.7 - ILEUS, UNSPECIFIED (4) Sepsis Code(s): A41.9 - SEPSIS, UNSPECIFIED ORGANISM Qualifiers: Sepsis type: sepsis due to unspecified organism Sepsis acute organ dysfunction status: with acute organ dysfunction Severe sepsis acute organ dysfunction type: acute renal failure Acute renal failure type: unspecified Severe sepsis shock status: without septic shock Qualified Code(s): A41.9 - Sepsis, unspecified organism; R65.20 - Severe sepsis without septic shock; N17.9 - Acute kidney failure, unspecified Assessment/Plan Current Medications Generic Name Dose Route Start Last Admin Trade Name Freq PRN Reason Stop Dose Admin Amantadine HCl 100 mg 11/15/18 10:00 11/25/18 09:21 Symmetrel Oral Solution - GT 100 mg BID LUCRECIA Administration Amiodarone HCl 200 mg 11/15/18 10:00 11/25/18 09:20 Cordarone - GT 200 mg DAILY LUCRECIA Administration Carbidopa/Levodopa 2 each 11/15/18 06:00 11/25/18 14:21 Sinemet 25/250 - GT 2 each TID LUCRECIA Administration Collagenase 1 applic 11/15/18 10:00 11/25/18 09:21 Santyl - TP 1 applic DAILY LUCRECIA Administration Protocol Latanoprost 1 drop 11/15/18 22:00 11/24/18 21:04 Xalatan 0.005% Eye Drops - OU 1 drop HS LUCRECIA Administration Metoprolol Tartrate 75 mg 11/15/18 10:00 11/25/18 09:20 Lopressor - GT 75 mg BID LUCRECIA Administration Metoprolol Tartrate 5 mg 11/14/18 23:17 Lopressor Injection - IVPUSH Q4H PRN TACHYCARDIA Pantoprazole Sodium 40 mg 11/15/18 10:00 11/25/18 09:21 Protonix Iv IVPUSH 40 mg DAILY LUCRECIA Administration Potassium Chloride 40 meq 11/25/18 19:09 Potassium Chloride Oral Liquid PEG 11/25/18 19:10 ONCE ONE Impression: 1. [place] 2. sepsis 3. PNA 4. SBO 5. Parkinson's 6. a-fib 7. chronic resp failure 8. severe sepsis 9. lactic acidosis 10. copd 11. hx of htn 12. thrombocytopenia Plan - repeat labs in am - shiley to be changed tomorrow - monitor urine output - repeat labs in am - pt tolerating feeds - monitor platelets
[2018-11-25] MEDS: LATANOPROST 0.005% OPHTH SOLN 2.5ML BOTTLE OU SCH (22:34)
[2018-11-26] MEDS ORDERED: PT OWN MED DRAWER 7, Y5N ONE (03:27)
[2018-11-26] MEDS: CARBIDOPA/LEVODOPA 25/250 TABLET (FP) GT SCH ×3 (06:20→22:09)
--- NOTE | 2018-11-26 07:38 | PN ---
Physical Exam: SUBJECTIVE: Patient seen and examined. Pt is non-verbal. OBJECTIVE: Vital Signs Period Temp Pulse Resp BP Sys/Cope Pulse Ox Last 24 Hr 96.3 F-99.8 F 94-116 12- 102-145/54-86 97-100 GENERAL: The patient is awake and responsive to auditory stimuli. Not opening eyes fully. Appears uncomfortable. HEAD: Normal with no signs of trauma. EYES: Pupils reactive to light, extraocular movements intact, sclera anicteric, conjunctiva clear. ENT: Ears normal, nares patent, dry mucous membranes and tongue. NECK: Tracheostomy in place, limited ROM LUNGS: Decreased breath sounds. no accessory muscle use. HEART: Regular rate and rhythm, S1, S2 without murmur, rub or gallop. ABDOMEN: Moderate distention more pronounced on left, tender to deep palpation, hypoactive bowel sounds EXTREMITIES: +1 pitting edema in hands, +1 pitting edema of feet, warm to touch NEUROLOGICAL: can move fingers and toes, follows voices with eyes and head PSYCH: unable to assess SKIN: Warm, dry, significant ecchymosis noted on both hands, bullae present on bilateral dorsal surfaces, with open hemorrhagic wound on right hand Laboratory Results - last 24 hr 11/22/18 11/23/18 11/25/18 12:00 15:30 05:30 WBC 8.3 RBC 2.52 L Hgb 7.7 L Hct 23.6 L MCV 94.0 MCH 30.7 MCHC 32.7 RDW 27.3 H Plt Count 49 L MPV 10.6 Absolute Neuts (auto) 6.4 Neutrophils % 76.6 Lymphocytes % 11.6 D Monocytes % 10.1 Eosinophils % 1.2 Basophils % 0.5 Nucleated RBC % 0 Factor V Leiden TNP Factor XII Cancelled Factor XIII Cancelled Sodium Potassium Chloride Carbon Dioxide Anion Gap BUN Creatinine Est GFR (CKD-EPI)AfAm Est GFR (CKD-EPI)NonAf POC Glucometer Random Glucose Calcium Total Bilirubin AST ALT Alkaline Phosphatase Total Protein Albumin Blood Type O POSITIVE Antibody Screen Negative Crossmatch See Detail 11/25/18 11/25/18 11/26/18 05:30 11:00 00:11 WBC RBC Hgb Hct MCV MCH MCHC RDW Plt Count MPV Absolute Neuts (auto) Neutrophils % Lymphocytes % Monocytes % Eosinophils % Basophils % Nucleated RBC % Factor V Leiden Factor XII Factor XIII Sodium 141 Potassium 3.0 L Chloride 101 Carbon Dioxide 29 Anion Gap 12 BUN 44.8 H Creatinine 3.2 H Est GFR (CKD-EPI)AfAm 19.00 Est GFR (CKD-EPI)NonAf 16.39 POC Glucometer 117 96 Random Glucose 109 H Calcium 8.4 L Total Bilirubin 1.5 H AST 18 ALT 8 L Alkaline Phosphatase 155 H Total Protein 5.5 L Albumin 2.2 L Blood Type Antibody Screen Crossmatch Active Medications Generic Name Dose Route Start Last Admin Trade Name Freq PRN Reason Stop Dose Admin Amantadine HCl 100 mg 11/15/18 10:00 11/25/18 22:27 Symmetrel Oral Solution - GT 100 mg BID LUCRECIA Administration Amiodarone HCl 200 mg 11/15/18 10:00 11/25/18 09:20 Cordarone - GT 200 mg DAILY LUCRECIA Administration Carbidopa/Levodopa 2 each 11/15/18 06:00 11/26/18 06:20 Sinemet 25/250 - GT 2 each TID LUCRECIA Administration Collagenase 1 applic 11/15/18 10:00 11/25/18 09:21 Santyl - TP 1 applic DAILY LUCRECIA Administration Protocol Latanoprost 1 drop 11/15/18 22:00 11/25/18 22:34 Xalatan 0.005% Eye Drops - OU 1 drop HS LUCRECIA Administration Metoprolol Tartrate 75 mg 11/15/18 10:00 11/25/18 22:26 Lopressor - GT 75 mg BID LUCRECIA Administration Metoprolol Tartrate 5 mg 11/14/18 23:17 Lopressor Injection - IVPUSH Q4H PRN TACHYCARDIA Pantoprazole Sodium 40 mg 11/15/18 10:00 11/25/18 09:21 Protonix Iv IVPUSH 40 mg DAILY LUCRECIA Administration ASSESSMENT/PLAN: Mr. Smalls is an 88yo male with Parkinson's, COPD, CHF, HTN, a-fib on Eliquis, respiratory failure with trach and PEG, hx of prostate cancer who presents for abdominal distention and fevers. He was found to be septic 2/2 pneumonia, as well as SBO, and CBD dilation. UA on 11/10/18 resulted in UTI diagnosis. Creatinine was increasing, but has improved since hemodialysis began on 11/19. The family, palliative care, and the medicine team met this week to discuss goals of care. The patient received dialysis today according to schedule (Thursday ), and the family will decide over the weekend if they want to continue HD. Speech consulted for communication. Suggested valve to be placed by pulm to allow pt to attempt to speak. 1. [place], on HD 52.7/3.8 -pt received 5th HD -monitor INR -pt typed and crossed -femoral line replaced prior to HD today -Nephro following -CMP 2. SBO, resolved pt became more distended over the last week, CT showed slightly increased bowel dilation compared to previous exam but no SBO -restart tube feeds tomorrow -restart gt meds tomorrow -rectal tube placed -Surgical recs appreciated -GI consulted -discuss goals of care with family 3. anemia Hb 8.2 with recent hematuria, FOBT positive -transfused 1 unit PRBCs this week -repeat CBC, reassess -heme following 4. hematuria, possibly 2/2 DIC/coagulopathy -urology following -heme following 5. acute on chronic hypoxic respiratory failure s/p trach/vent with sepsis 2/2 PNA CXR week ago showed decrease congestion -Tylenol PRN discomfort -leukocytosis 10.4 -fluids being held, limiting drips -blood cultures negative -sputum culture positive Klebsiella, Pseudomonas, Proteus Mirabilus -CT abd/pelvis 11/05/18 showed mod to large pleural effusion on right, moderate on left -Ceftazidime/Avibactam and Flagyl x 14 days completed -ID following -Pulm following -CBC 6. complicated UTI -galarza in place 7. acute on chronic diastolic CHF -echo EF 65-70%, no LVH, mild RA dilation, moderate TR, moderate AR, no pericardial effusion -fluids successfully removed during previous HD sessions -Lasix has been held -no extra fluids -CMP 8. paroxysmal a-fib HR 100s -metoprolol has been held -INR 1.55, Eliquis held -EKG 11/08/18: irregular rhythm, HR 98, QTc 589 -monitor QTc and medications which could increase it 9. thrombocytopenia Plt 59. DIC/coagulopathy -Factors V, VIII, X and XII, mixed PT and PTT LAC studies pending -monitor for signs of bleeding -HIT negative -type and cross done -heme following 10. INR 1.55 -Eliquis held 11. hypoglycemia well-controlled -feedings stopped after vomiting x 2 in the last day; will restart feeds tomorrow and titrate up -SSI 12. transaminitis, Alk Phos AST 12, ALT 7, Alk Phos 148 -negative FACUNDO, c-ANCA, p-ANCA, DS DNA Ab, GBM Ab, Heparin-induced plt Ab, myeloperoxidase Ab -negative hep B, and hep C, negative hep A IgM -GI following 13. HTN well-controlled, currently on metoprolol -frequent VS checks 14. decubitus ulcer -santyl 15. hemorrhagic bullae -dressing on right hand -derm consulted 16. COPD RR normal on ventilator. 17. Parkinson's -continue home meds when receiving feedings 18. hx of prostate cancer -PSA FEN none monitor lytes tube feedings held DVT Ppe SCDs, Eliquis 2.5mg BID- held GI Ppe Protonix- held DNR Visit type - Emergency Visit Emergency Visit: Yes ED Registration Date: 11/05/18 Care time: The patient presented to the Emergency Department on the above date and was hospitalized for further evaluation of their emergent condition. - New Patient This patient is new to me today: No - Critical Care Critical Care patient: No - Discharge Referral Referred to [facility] Med [facility].: No ATTENDING PHYSICIAN STATEMENT I saw and evaluated the patient. I reviewed the resident's note and discussed the case with the resident. I agree with the resident's findings and plan as documented. SUBJECTIVE: OBJECTIVE: ASSESSMENT AND PLAN:
[2018-11-26 08:06] LABS: BASO % 0.3 % (0-2.0); EOS % 0.2 % (0-4.5); HEMATOCRIT 25.3 % (35.4-49); HEMOGLOBIN 8.2 GM/dL (11.7-16.9); LYMPH % 8.6 % (8-40); MCH 30.8 pg (25.7-33.7); MCHC 32.5 g/dl (32.0-35.9); MEAN CELL VOLUME 94.7 fl (80-96); MEAN PLT VOLUME 9.7 fl (7.5-11.1); NEUT % 81.9 % (42.8-82.8); PLATELET COUNT 59 K/MM3 (134-434); RBC 2.67 M/mm3 (4.00-5.60); RDW 27.5 % (11.9-15.9); WHITE BLOOD COUNT 10.4 K/mm3 (4.0-10.0)
[2018-11-26 08:24] LABS: INR 1.55 (0.83-1.09); PROTHROMBIN TIME (PATIENT) 18.4 SEC (9.7-13.0)
[2018-11-26 08:26] LABS: ACTIVATED PTT 32.3 SECONDS (25.2-36.5)
[2018-11-26 08:33] LABS: ALBUMIN 2.3 g/dl (3.4-5.0); BILIRUBIN,TOTAL 1.7 mg/dL (0.2-1); BLOOD UREA NITROGEN 52.7 mg/dL (7-18); CALCIUM 8.5 mg/dL (8.5-10.1); CREATININE 3.8 mg/dL (0.55-1.3); POTASSIUM 3.3 mmol/L (3.5-5.1); TOT PROT 5.8 g/dl (6.4-8.2)
[2018-11-26] MEDS ORDERED: POTASSIUM CHLORIDE ORAL LIQUID 20 MEQ/15 ML PEG ONE (09:30)
[2018-11-26] MEDS: PANTOPRAZOLE SODIUM 40 MG VIAL IVPUSH SCH (11:07)
[2018-11-26] MEDS: AMIODARONE HCL 200 MG TABLET (FP) GT SCH (11:07)
[2018-11-26] MEDS: METOPROLOL TARTRATE 25 MG TABLET (FP) GT SCH ×2 (11:07→22:04)
[2018-11-26] MEDS: AMANTADINE HCL 100MG/10 ML UNIT DOSE CUPS GT SCH ×2 (11:08→22:10)
--- NOTE | 2018-11-26 12:32 | PN ---
Progress Note, [employer] - Note Progress Note: Deferred today as HD will be done later in the day. Counseled pt's granddaughter on working on y/n headshake and communication board with eye gaze (2 way discrimination in saxman language) as well as repeating words, counting, praying-working on verbalization/ articulation. Will try PMV if verbalization attempts improves.
--- NOTE | 2018-11-26 12:53 | PROC ---
Central Line Insertion - Procedure Note Dialysis catheter exchange TIME OUT performed prior to this procedure with verbal confirmation of correct patient identity, correct side, agreement of the procedure, correct patient position, availability of necessary equipment. The consent form is complete and accurate. Risk of possible infection, bleeding have been discussed with the patient. Safety precautions based on patient history or medication use has been addressed. Indication: Other (Dialysis ) Consent on Chart: Yes Central Line: Dialysis Cath, Tri Lumen Position: Supine Area prepped with Chlorhexidine solution then draped using sterile barrier protection. Anesthesia: Lidocaine 1% Ultrasound Guided Assistance: No Site: Left Femoral Guidewire was placed into old catheter and old catheter was removed. The new catheter was introduced. Guide wire removed intact. Each port aspirated then flushed with sterile normal saline, heparin locked and capped. Line secured to skin with silk suture. Biopatch placed around base of line. Sterile occlusive dressing applied. No complications. Patient tolerated the procedure well. Dialysis catheter is ready for immediate use.
[2018-11-26] MEDS ORDERED: SODIUM CHLORIDE 250 ML IV PRN (14:42)
[2018-11-26] MEDS ORDERED: EPOETIN ALFA 2,000 UNIT/1 ML VIAL IVPUSH ONE (14:42)
--- NOTE | 2018-11-26 14:44 | PN ---
Teaching Attending Note Name of Resident: Greg Desai ATTENDING PHYSICIAN STATEMENT I saw and evaluated the patient. I reviewed the resident's note and discussed the case with the resident. I agree with the resident's findings and plan as documented. SUBJECTIVE: Unable to participate in interview, non-verbal, Trach/Vent. Vomiting X 2 (yesterday evening and this AM) OBJECTIVE: Afebrile, hemodynamically stable. Appears comfortable. Awake. Last Vital Signs Temp Pulse Resp BP Pulse Ox 96.3 F L 111 H 27 H 131/72 99 11/26/18 06:00 11/26/18 06:00 11/26/18 11:48 11/26/18 06:00 11/25/18 21:00 HEENT - s/p Trach to Vent, FiO2 40%. Heart - S1, S2, SM, irregular. Lungs - good air entry bilaterally with basal crackles. Abdomen - PEG in situ. Site dressed. No evidence of surrounding cellulitis. Abdomen distended +, tender +. Rectal tube in place. - Galarza in situ, dark colored urine. Extremities - hemorrhagic bullae improving. Edema UEs, Edema+ LEs. Laboratory Results - last 24 hr 11/22/18 11/23/18 11/26/18 12:00 15:30 00:11 WBC RBC Hgb Hct MCV MCH MCHC RDW Plt Count MPV Absolute Neuts (auto) Neutrophils % Lymphocytes % Monocytes % Eosinophils % Basophils % Nucleated RBC % PT with INR INR PTT (Actin FS) Factor V Leiden Cancelled Factor XII Cancelled Factor XIII Cancelled Sodium Potassium Chloride Carbon Dioxide Anion Gap BUN Creatinine Est GFR (CKD-EPI)AfAm Est GFR (CKD-EPI)NonAf POC Glucometer 96 Random Glucose Calcium Total Bilirubin AST ALT Alkaline Phosphatase Total Protein Albumin Blood Type O POSITIVE Antibody Screen Negative Crossmatch See Detail 11/26/18 11/26/18 11/26/18 06:45 06:45 06:45 WBC 10.4 H RBC 2.67 L Hgb 8.2 L Hct 25.3 L MCV 94.7 MCH 30.8 MCHC 32.5 RDW 27.5 H Plt Count 59 L D MPV 9.7 Absolute Neuts (auto) 8.6 H Neutrophils % 81.9 Lymphocytes % 8.6 D Monocytes % 9.0 Eosinophils % 0.2 D Basophils % 0.3 Nucleated RBC % 0 PT with INR 18.40 H INR 1.55 H PTT (Actin FS) 32.3 Factor V Leiden Factor XII Factor XIII Sodium 140 Potassium 3.3 L Chloride 100 Carbon Dioxide 28 Anion Gap 12 BUN 52.7 H Creatinine 3.8 H Est GFR (CKD-EPI)AfAm 15.44 Est GFR (CKD-EPI)NonAf 13.32 POC Glucometer Random Glucose 90 Calcium 8.5 Total Bilirubin 1.7 H AST 12 L ALT 7 L Alkaline Phosphatase 148 H Total Protein 5.8 L Albumin 2.3 L Blood Type Antibody Screen Crossmatch Current Medications Generic Name Dose Route Start Last Admin Trade Name Freq PRN Reason Stop Dose Admin Amantadine HCl 100 mg 11/15/18 10:00 11/26/18 11:08 Symmetrel Oral Solution - GT 100 mg BID LUCRECIA Administration Amiodarone HCl 200 mg 11/15/18 10:00 11/26/18 11:07 Cordarone - GT 200 mg DAILY [facility] Administration Carbidopa/Levodopa 2 each 11/15/18 06:00 11/26/18 06:20 Sinemet 25/250 - GT 2 each TID [facility] Administration Collagenase 1 applic 11/15/18 10:00 11/25/18 09:21 Santyl - TP 1 applic DAILY [facility]CR[facility]IA Administration Protocol Latanoprost 1 drop 11/15/18 22:00 11/25/18 22:34 Xalatan 0.005% Eye Drops - OU 1 drop HS [facility] Administration Metoprolol Tartrate 75 mg 11/15/18 10:00 11/26/18 11:07 Lopressor - GT 75 mg BID [facility] Administration Metoprolol Tartrate 5 mg 11/14/18 23:17 Lopressor Injection - IVPUSH Q4H PRN TACHYCARDIA Pantoprazole Sodium 40 mg 11/15/18 10:00 11/26/18 11:07 Protonix Iv IVPUSH 40 mg DAILY [facility] Administration Home Medications Medication Instructions Recorded Acetaminophen [Tylenol] 650 mg GT QID PRN 11/05/18 Albuterol 2.5/Ipratropium 0.5 1 neb IH QID 11/05/18 [Duoneb -] Amantadine Oral Solution 100 mg GT BID 11/05/18 [Symmetrel Oral Solution -] Amiodarone HCl [Cordarone -] 200 mg GT DAILY 11/05/18 Apixaban [Eliquis -] 5 mg GT BID 11/05/18 Ascorbic Acid 500 mg GT DAILY 11/05/18 Carbidopa/Levodopa 25/250 [Sinemet 2 each PO TID 11/05/18 25/250 -] Docusate Liquid [Colace Liquid -] 100 mg GT DAILY 11/05/18 Famotidine 20 mg GT DAILY 11/05/18 Furosemide [Lasix -] 40 mg GT DAILY 11/05/18 Homatropine HBr 5% Ophth Soln 1 drop OD QID 11/05/18 [Isopto Homatropine] Latanoprost 0.005% Eye Drops 1 drop OU HS 11/05/18 [Xalatan 0.005% Eye Drops -] Metoprolol Tartrate [Lopressor -] 50 mg GT BID 11/05/18 Multivitamin [Multiple Vitamins] 15 ml GT DAILY 11/05/18 Polyethylene Glycol 3350 [Miralax 17 gm GT DAILY 11/05/18 (For Bowel Prep) -] Tobramycin/Dexamethasone [Tobradex 1 drop OU BID 11/05/18 Eye Drops] Zinc Sulfate [Zinc-220] 220 mg GT DAILY 11/05/18 ASSESSMENT AND PLAN: 88 year old male with Parkinson's Disease, COPD, HTN, Atrial Fibrillation, CRF s /p Trach (Vent dependent)/PEG, presented with fevers/chills, abdominal pain/ distension, found to have SBO and sepsis secondary to Pneumonia. 1. Acute on Chronic Respiratory Failure and Severe Sepsis secondary to Pneumonia. s/p tracheostomy, vent dependent. Sputum Cx positive for Pseudomonas - completed 14 days Ceftazidime. Afebrile, hemodynamicaly stable. Sepsis resolved. ID/Pulm following. 2. [place] with fluid overload, sec to Sepsis/ATN vs Contrast Nephropathy - initiated on HD/Ultrafiltration via femoral Cath - s/p femoral catheter exchange today by surgery. CT shows some ongoing bilateral pleural effusions. For HD again today. 3. SBO - recurrent, vomited last evening and again this am. Feeds held again. Surgery to follow. 4. Hematuria - likely sec to thrombocytopenia and galarza in situ. s/p 1 unit PRBCs. H.H 8.2/25.3. Will monitor. 5. Anemia - multifactorial - sec to renal failure/sepsis/acute blood loss (sec to Hematuria) - s/p 1 unit PRBCs. Follow H/H. 6. Coagulopathy - Elevated INR - s/p Vitamin K. Hematology following. For further investigation including Lupus anticoagulant, mixing studies of PT and PTT LAC, Factor V, VIII, X, and VII 7. Thrombocytopenia - etiology unclear - HIT work-up negative. ?Amio ?Abx. Hematology following. Will monitor. 8. Elevated LFTs - secondary to sepsis/shock liver. Transaminases normalized. GI evaluated. 9. Atrial fibrillation with RVR - resumed on Metoprolol (at increased dose of 75mg BID) and Amiodarone. Started on Eliquis (now held due to elevated INR and Thrombocytopenia). 10. Hemorrhagic Bullae - noted on hands. Dermatology consulted, has not seen. Improving, will monitor. 11. Elevated Troponin - sec to demand due to sepsis. TnI max 0.07. No further work-up currently. Can follow with cardiology as out-patient. 12. Parkinson's Disease - Continue Sinemet/Amantadine. 13. HTN - BP borderline. Resumed on Metoprolol. 14. Dysphagia s/p PEG - on enteral feeds via PEG. DVT Px - Eliquis held. SCDs. Code Status - DNR. Poor prognosis. Palliative care following. Family meeting held 11/24/18 to revisit Goals of Care - son/grandchildren are requested 2 more sessions of HD and the observation of renal function prior to decision regarding whether to withdraw HD and initiate possible comfort measures. Will follow daily with family and further discussions regarding goals of care in coming days.
--- NOTE | 2018-11-26 14:47 | PN ---
Progress Note, Physician History of Present Illness: Pt seen and examined at bedside. He is awake and appears comfortable. - Current Medication List Current Medications: Active Medications Amantadine HCl (Symmetrel Oral Solution -) 100 mg GT BID [facility] Last Admin: 11/26/18 11:08 Dose: 100 mg Amiodarone HCl (Cordarone -) 200 mg GT DAILY [facility] Last Admin: 11/26/18 11:07 Dose: 200 mg Carbidopa/Levodopa (Sinemet 25/250 -) 2 each GT TID [facility] Last Admin: 11/26/18 06:20 Dose: 2 each Collagenase (Santyl -) 1 applic TP DAILY [facility]; Protocol Last Admin: 11/25/18 09:21 Dose: 1 applic Latanoprost (Xalatan 0.005% Eye Drops -) 1 drop OU HS [facility] Last Admin: 11/25/18 22:34 Dose: 1 drop Metoprolol Tartrate (Lopressor -) 75 mg GT BID [facility] Last Admin: 11/26/18 11:07 Dose: 75 mg Metoprolol Tartrate (Lopressor Injection -) 5 mg IVPUSH Q4H PRN PRN Reason: TACHYCARDIA Pantoprazole Sodium (Protonix Iv) 40 mg IVPUSH DAILY [facility] Last Admin: 11/26/18 11:07 Dose: 40 mg - Objective Vital Signs: Vital Signs Temperature 96.3 F L 11/26/18 06:00 Pulse Rate 61 11/26/18 14:20 Respiratory Rate 16 11/26/18 14:20 Blood Pressure 112/61 11/26/18 14:20 O2 Sat by Pulse Oximetry (%) 99 11/25/18 21:00 Constitutional: Yes: Calm Eyes: Yes: Conjunctiva Clear HENT: Yes: Atraumatic Neck: Yes: Supple Cardiovascular: Yes: S1, S2 Respiratory: Yes: Mechanically Ventilated Gastrointestinal: Yes: Soft, Other (peg) Genitourinary: Yes: Salguero Present, Oliguria Musculoskeletal: Yes: Muscle Weakness Edema: Yes Edema: LUE: 1+, RUE: 1+, LLE: 1+, RLE: 1+ Neurological: Yes: Other (awake) Labs: CBC, BMP 11/26/18 06:45 11/26/18 06:45 INR, PTT INR 1.55 (0.83-1.09) H 11/26/18 06:45 Fibrinogen 415.0 mg/dL (238-498) 11/21/18 14:20 Problem List - Problems (1) [place] (acute kidney injury) Code(s): N17.9 - ACUTE KIDNEY FAILURE, UNSPECIFIED (2) Atrial fibrillation with RVR Code(s): I48.91 - UNSPECIFIED ATRIAL FIBRILLATION (3) Ileus Code(s): K56.7 - ILEUS, UNSPECIFIED (4) Sepsis Code(s): A41.9 - SEPSIS, UNSPECIFIED ORGANISM Qualifiers: Qualified Code(s): A41.9 - Sepsis, unspecified organism; R65.20 - Severe sepsis without septic shock; N17.9 - Acute kidney failure, unspecified Assessment/Plan Current Medications Generic Name Dose Route Start Last Admin Trade Name Freq PRN Reason Stop Dose Admin Albumin Human 12.5 gm 11/26/18 14:45 Albumin Human 25% IVPB Q30M LUCRECIA Amantadine HCl 100 mg 11/15/18 10:00 11/26/18 11:08 Symmetrel Oral Solution - GT 100 mg BID [facility]CRECIA Administration Amiodarone HCl 200 mg 11/15/18 10:00 11/26/18 11:07 Cordarone - GT 200 mg DAILY [facility]CRECIA Administration Carbidopa/Levodopa 2 each 11/15/18 06:00 11/26/18 06:20 Sinemet 25/250 - GT 2 each TID LUCRECIA Administration Collagenase 1 applic 11/15/18 10:00 11/25/18 09:21 Santyl - TP 1 applic DAILY [facility]CRECIA Administration Protocol Epoetin Martir 5,000 unit 11/26/18 14:42 Epogen - IVPUSH 11/26/18 14:43 ONCE ONE Sodium Chloride 250 mls @ 3,000 mls/hr 11/26/18 14:42 Normal Saline - IV 11/27/18 14:43 PRN PRN Hypotension during Dialysis Latanoprost 1 drop 11/15/18 22:00 11/25/18 22:34 Xalatan 0.005% Eye Drops - OU 1 drop HS [facility]CRECIA Administration Metoprolol Tartrate 75 mg 11/15/18 10:00 11/26/18 11:07 Lopressor - GT 75 mg BID LUCRECIA Administration Metoprolol Tartrate 5 mg 11/14/18 23:17 Lopressor Injection - IVPUSH Q4H PRN TACHYCARDIA Pantoprazole Sodium 40 mg 11/15/18 10:00 11/26/18 11:07 Protonix Iv IVPUSH 40 mg DAILY LUCRECIA Administration Impression: 1. [place] 2. sepsis 3. PNA 4. SBO 5. Parkinson's 6. a-fib 7. chronic resp failure 8. severe sepsis 9. lactic acidosis 10. copd 11. hx of htn 12. thrombocytopenia Plan - HD today - monitor renal function - will UF volume if bp permits - epogen for anemia - geni jenkins over wire - platelets improving - monitor renal function, if no improvement will need permacath next week
[2018-11-26] MEDS ORDERED: EPOETIN ALFA 3,000 UNIT, EPOETIN ALFA 2,000 UNIT IVPUSH ONE (15:00)
[2018-11-26] MEDS: ALBUMIN HUMAN 25% 12.5 GM/50 ML VIAL IVPB SCH ×4 (15:20→17:20)
--- NOTE | 2018-11-26 18:51 | PN ---
Progress Note (short form) - Note Progress Note: Patient seen and examined Hemorrhagic diathesis is improving Bullae on hands improving Plateletsw improved Current coags reveal normal PTT and prolonged PT This suggests Factor VII deficiency which may be related to antibiotics affecting Vitamin K dependent factors. Will give SQ vitamin K
[2018-11-26] MEDS: COLLAGENASE CLOSTRIDIUM HIST. 30 GRAMS TUBE TP SCH (20:04)
[2018-11-26] MEDS: LATANOPROST 0.005% OPHTH SOLN 2.5ML BOTTLE OU SCH (22:11)
[2018-11-27] MEDS: CARBIDOPA/LEVODOPA 25/250 TABLET (FP) GT SCH ×3 (05:24→22:23)
[2018-11-27 09:09] LABS: BASO % 0.6 % (0-2.0); EOS % 0.7 % (0-4.5); HEMATOCRIT 24.2 % (35.4-49); HEMOGLOBIN 7.8 GM/dL (11.7-16.9); LYMPH % 10.2 % (8-40); MCH 30.9 pg (25.7-33.7); MCHC 32.3 g/dl (32.0-35.9); MEAN CELL VOLUME 95.7 fl (80-96); MEAN PLT VOLUME 9.5 fl (7.5-11.1); MONO % 12.1 % (3.8-10.2); NEUT % 76.4 % (42.8-82.8); PLATELET COUNT 53 K/MM3 (134-434); RBC 2.53 M/mm3 (4.00-5.60); RDW 27.2 % (11.9-15.9)
[2018-11-27 09:53] LABS: ALBUMIN 2.5 g/dl (3.4-5.0); ALK PHOS 124 U/L (45-117); ANION GAP 14 MMOL/L (8-16); BILIRUBIN,TOTAL 1.9 mg/dL (0.2-1); BLOOD UREA NITROGEN 39.9 mg/dL (7-18); CALCIUM 8.3 mg/dL (8.5-10.1); CHLORIDE 101 mmol/L (98-107); CO2 26 mmol/L (21-32); CREATININE 3.3 mg/dL (0.55-1.3); GLUCOSE,RANDOM 73 mg/dL (74-106); POTASSIUM 3.5 mmol/L (3.5-5.1); SGOT/AST 16 U/L (15-37); SGPT/ALT < 6 U/L (13-61); SODIUM 141 mmol/L (136-145); TOT PROT 5.6 g/dl (6.4-8.2)
[2018-11-27 10:07] LABS: DRVVT - 59.5 sec (0.0-47.0); HEXAGONAL PHASE PHOSPHOLIPID 0 sec (0-11); dRVVT MIX 42.5 sec (0.0-47.0)
--- NOTE | 2018-11-27 10:49 | PN ---
Progress Note (short form) - Note Progress Note: Renal coverage for Dr. Ibrahim Seen and examined at the bedside on Vent via trach s/p dialysis yesterday Vital Signs Temperature 99.8 F H 11/27/18 06:00 Pulse Rate 103 H 11/27/18 06:00 Respiratory Rate 17 11/27/18 08:18 Blood Pressure 123/58 L 11/27/18 06:00 O2 Sat by Pulse Oximetry (%) 100 11/26/18 22:00 Intake & Output 11/24/18 11/25/18 11/26/18 11/27/18 23:59 23:59 23:59 23:59 Intake Total 600 1560 650 300 Output Total 2560 2450 2530 2500 Balance -1960 -890 -1880 -2200 NAD + upper extremity and LE edema CBC, BMP 11/27/18 08:00 11/27/18 06:00 Current Medications Amantadine HCl (Symmetrel Oral Solution -) 100 mg GT BID [facility] Last Admin: 11/26/18 22:10 Dose: 100 mg Amiodarone HCl (Cordarone -) 200 mg GT DAILY [facility] Last Admin: 11/26/18 11:07 Dose: 200 mg Carbidopa/Levodopa (Sinemet 25/250 -) 2 each GT TID [facility] Last Admin: 11/27/18 05:24 Dose: 2 each Collagenase (Santyl -) 1 applic TP DAILY [facility]; Protocol Last Admin: 11/26/18 20:04 Dose: 1 applic Sodium Chloride (Normal Saline -) 250 mls @ 3,000 mls/hr IV PRN PRN PRN Reason: Hypotension during Dialysis Stop: 11/27/18 14:43 Latanoprost (Xalatan 0.005% Eye Drops -) 1 drop OU HS [facility] Last Admin: 11/26/18 22:11 Dose: 1 drop Metoprolol Tartrate (Lopressor -) 75 mg GT BID [facility] Last Admin: 11/26/18 22:04 Dose: Not Given Metoprolol Tartrate (Lopressor Injection -) 5 mg IVPUSH Q4H PRN PRN Reason: TACHYCARDIA Pantoprazole Sodium (Protonix Iv) 40 mg IVPUSH DAILY [facility] Last Admin: 11/26/18 11:07 Dose: 40 mg Impression: 1. [place] requiring dialysis 2. sepsis 3. PNA 4. SBO 5. Parkinson's 6. a-fib 7. chronic resp failure 8. severe sepsis 9. lactic acidosis 10. copd 11. hx of htn 12. thrombocytopenia s/p dialysis yesterday,no acute need for dialysis today. Trend renal function and urine output for 48-72 hours off Hd and monitor for improvement continue vent support overall prognosis is guarded. Ralph Pettit DO
[2018-11-27 11:07] LABS: FACTOR VII ACTIVITY 31 % (51-186)
[2018-11-27] MEDS ORDERED: PT OWN MED DRAWER 7, Y5N ONE (11:32)
[2018-11-27] MEDS: PANTOPRAZOLE SODIUM 40 MG VIAL IVPUSH SCH (11:35)
[2018-11-27] MEDS: AMANTADINE HCL 100MG/10 ML UNIT DOSE CUPS GT SCH ×2 (11:35→22:24)
[2018-11-27] MEDS: AMIODARONE HCL 200 MG TABLET (FP) GT SCH (11:42)
[2018-11-27] MEDS: COLLAGENASE CLOSTRIDIUM HIST. 30 GRAMS TUBE TP SCH (12:00)
[2018-11-27] MEDS: METOPROLOL TARTRATE 25 MG TABLET (FP) GT SCH ×2 (12:09→22:23)
--- NOTE | 2018-11-27 12:13 | PN ---
Progress Note (short form) - Note Progress Note: Seen in follow up. No new issues this morning. Ongoing hematuria - unchanged. Meds reviewed. Current Medications Amantadine HCl (Symmetrel Oral Solution -) 100 mg GT BID [facility] Last Admin: 11/27/18 11:35 Dose: 100 mg Amiodarone HCl (Cordarone -) 200 mg GT DAILY [facility] Last Admin: 11/27/18 11:42 Dose: 200 mg Carbidopa/Levodopa (Sinemet 25/250 -) 2 each GT TID [facility] Last Admin: 11/27/18 05:24 Dose: 2 each Collagenase (Santyl -) 1 applic TP DAILY [facility]; Protocol Last Admin: 11/26/18 20:04 Dose: 1 applic Sodium Chloride (Normal Saline -) 250 mls @ 3,000 mls/hr IV PRN PRN PRN Reason: Hypotension during Dialysis Stop: 11/27/18 14:43 Latanoprost (Xalatan 0.005% Eye Drops -) 1 drop OU HS [facility] Last Admin: 11/26/18 22:11 Dose: 1 drop Metoprolol Tartrate (Lopressor -) 75 mg GT BID [facility] Last Admin: 11/27/18 12:09 Dose: Not Given Metoprolol Tartrate (Lopressor Injection -) 5 mg IVPUSH Q4H PRN PRN Reason: TACHYCARDIA Pantoprazole Sodium (Protonix Iv) 40 mg IVPUSH DAILY [facility] Last Admin: 11/27/18 11:35 Dose: 40 mg Last Vital Signs Temp Pulse Resp BP Pulse Ox 99.8 F H 103 H 14 123/58 L 100 11/27/18 06:00 11/27/18 06:00 11/27/18 11:51 11/27/18 06:00 11/26/18 22:00 Labs reviewed: CBC, BMP 11/27/18 08:00 11/27/18 06:00 INR, PTT INR 1.55 (0.83-1.09) H 11/26/18 06:45 Fibrinogen 415.0 mg/dL (238-498) 11/21/18 14:20 Assessment. Metastatic lung cancer, with extensive bone mets, who presents following a fall , with failure to thrive, and is noted to have preicolonic abscesses, presently being conservatively managed, with some improvement noted on most recent CT scan. Continue supportive care, analgesia, Abics as per ID, parenteral nutrition. Prior prolonged coagulation times, likely attributable to consumption coagulopathy, but possibly some component of vitamin K deficiency, now improved. Contiune observation - daily PT and PTT. FFP PRN, if exhibits bleeding manifestations - (not occurring presently).
[2018-11-27] MEDS ORDERED: DEXTROSE 50%-WATER - 25 GM/50 ML VIAL IVPUSH ONE (12:14)
[2018-11-27] MEDS ORDERED: DEXTROSE 50%-WATER 25 GM/50 ML DISP.SYRIN ONE (12:29)
--- NOTE | 2018-11-27 12:44 | PN ---
Physical Exam: SUBJECTIVE: Patient seen and examined. He is non-verbal trach/vent. OBJECTIVE: Vital Signs Period Temp Pulse Resp BP Sys/Cope Pulse Ox Last 24 Hr 97.5 F-99.8 F 61-120 13-24 99-124/49-80 99-100 GENERAL: The patient is arousable and responsive to auditory stimuli. Not opening eyes fully. Appears uncomfortable. HEAD: Normal with no signs of trauma. EYES: Pupils reactive to light, extraocular movements intact, sclera anicteric, conjunctiva clear. ENT: Ears normal, nares patent, dry mucous membranes and tongue. NECK: Tracheostomy in place, limited ROM LUNGS: Decreased breath sounds. no accessory muscle use. HEART: Regular rate and rhythm, S1, S2 without murmur, rub or gallop. ABDOMEN: Moderate distention more pronounced on left, tender to deep palpation, hypoactive bowel sounds EXTREMITIES: +1 pitting edema in hands, +1 pitting edema of feet, warm to touch NEUROLOGICAL: can move fingers and toes, follows voices with eyes and head PSYCH: unable to assess SKIN: Warm, dry, significant ecchymosis noted on both hands, bullae present on bilateral dorsal surfaces, with open hemorrhagic wound on right hand healing, left covered with bandage Laboratory Results - last 24 hr 11/23/18 11/23/18 11/26/18 15:30 15:30 23:50 WBC RBC Hgb Hct MCV MCH MCHC RDW Plt Count MPV Absolute Neuts (auto) Neutrophils % Lymphocytes % Monocytes % Eosinophils % Basophils % Nucleated RBC % Lupus Anticoag PTT Mix 49.8 H LA PTT Baseline 58.2 H dRVVT Confirm Interp 59.5 H dRVVT Mixing Study 42.5 Hexagonal Phospholipid 0 Lupus Anticoag Comment Comment: Factor V Leiden Cancelled Factor VII Activity 31 L Sodium Potassium Chloride Carbon Dioxide Anion Gap BUN Creatinine Est GFR (CKD-EPI)AfAm Est GFR (CKD-EPI)NonAf POC Glucometer 80 Random Glucose Calcium Total Bilirubin AST ALT Alkaline Phosphatase Total Protein Albumin 11/27/18 11/27/18 11/27/18 06:00 08:00 12:05 WBC 7.0 RBC 2.53 L Hgb 7.8 L Hct 24.2 L MCV 95.7 MCH 30.9 MCHC 32.3 RDW 27.2 H Plt Count 53 L MPV 9.5 Absolute Neuts (auto) 5.4 Neutrophils % 76.4 Lymphocytes % 10.2 Monocytes % 12.1 H Eosinophils % 0.7 D Basophils % 0.6 Nucleated RBC % 0 Lupus Anticoag PTT Mix LA PTT Baseline dRVVT Confirm Interp dRVVT Mixing Study Hexagonal Phospholipid Lupus Anticoag Comment Factor V Leiden Factor VII Activity Sodium 141 Potassium 3.5 Chloride 101 Carbon Dioxide 26 Anion Gap 14 BUN 39.9 H Creatinine 3.3 H Est GFR (CKD-EPI)AfAm 18.31 Est GFR (CKD-EPI)NonAf 15.80 POC Glucometer 67 Random Glucose 73 L Calcium 8.3 L Total Bilirubin 1.9 H AST 16 ALT < 6 L Alkaline Phosphatase 124 H Total Protein 5.6 L Albumin 2.5 L 11/27/18 12:07 WBC RBC Hgb Hct MCV MCH MCHC RDW Plt Count MPV Absolute Neuts (auto) Neutrophils % Lymphocytes % Monocytes % Eosinophils % Basophils % Nucleated RBC % Lupus Anticoag PTT Mix LA PTT Baseline dRVVT Confirm Interp dRVVT Mixing Study Hexagonal Phospholipid Lupus Anticoag Comment Factor V Leiden Factor VII Activity Sodium Potassium Chloride Carbon Dioxide Anion Gap BUN Creatinine Est GFR (CKD-EPI)AfAm Est GFR (CKD-EPI)NonAf POC Glucometer 66 Random Glucose Calcium Total Bilirubin AST ALT Alkaline Phosphatase Total Protein Albumin Active Medications Generic Name Dose Route Start Last Admin Trade Name Negritoq PRN Reason Stop Dose Admin Amantadine HCl 100 mg 11/15/18 10:00 11/27/18 11:35 Symmetrel Oral Solution - GT 100 mg BID LUCRECIA Administration Amiodarone HCl 200 mg 11/15/18 10:00 11/27/18 11:42 Cordarone - GT 200 mg DAILY [facility]CRECIA Administration Carbidopa/Levodopa 2 each 11/15/18 06:00 11/27/18 05:24 Sinemet 25/250 - GT 2 each TID LUCRECIA Administration Collagenase 1 applic 11/15/18 10:00 11/26/18 20:04 Santyl - TP 1 applic DAILY [facility] Administration Protocol Sodium Chloride 250 mls @ 3,000 mls/hr 11/26/18 14:42 Normal Saline - IV 11/27/18 14:43 PRN PRN Hypotension during Dialysis Latanoprost 1 drop 11/15/18 22:00 11/26/18 22:11 Xalatan 0.005% Eye Drops - OU 1 drop HS [facility]CREC[facility] Administration Metoprolol Tartrate 75 mg 11/15/18 10:00 11/27/18 12:09 Lopressor - GT Not Given BID [facility] Metoprolol Tartrate 5 mg 11/14/18 23:17 Lopressor Injection - IVPUSH Q4H PRN TACHYCARDIA Pantoprazole Sodium 40 mg 11/15/18 10:00 11/27/18 11:35 Protonix Iv IVPUSH 40 mg DAILY [facility] Administration ASSESSMENT/PLAN: Mr. Smalls is an 88yo male with Parkinson's, COPD, CHF, HTN, a-fib on Eliquis, respiratory failure with trach and PEG, hx of prostate cancer who presents for abdominal distention and fevers. He was found to be septic 2/2 pneumonia, as well as SBO, and CBD dilation. UA on 11/10/18 resulted in UTI diagnosis. Creatinine was increasing, but has improved since hemodialysis began on 11/19. 1. [place], on HD 39.9/3.3 -pt received 5th HD -monitor INR -pt typed and crossed -femoral line replaced prior to HD yesterday (day 2 of line), previous line in place because thrombocytopenia increased complications in replacement -brown urine -Nephro following -CMP 2. SBO vs ileus pt became more distended over the last week, X-ray today cannot confirm or r/o SBO or ileus. CT 11/23/18 showed slightly increased bowel dilation compared to previous exam but no SBO. -repeat KUB tomorrow and consider restarting feeds -rectal tube placed -Surgical recs appreciated -GI consulted -discuss goals of care with family 3. anemia Hb 7.8 with recent hematuria, FOBT positive -transfused 1 unit PRBCs this week -repeat CBC, reassess -heme following 4. hematuria, possibly 2/2 DIC/coagulopathy -urology following -heme following 5. acute on chronic hypoxic respiratory failure s/p trach/vent with sepsis 2/2 PNA CXR week ago showed decrease congestion -Tylenol PRN discomfort -leukocytosis resolved 7.0 -fluids being held, limiting drips -blood cultures negative -sputum culture positive Klebsiella, Pseudomonas, Proteus Mirabilus -CT abd/pelvis 11/05/18 showed mod to large pleural effusion on right, moderate on left -Ceftazidime/Avibactam and Flagyl x 14 days completed -ID following -Pulm following -CBC 6. complicated UTI -galarza in place 7. acute on chronic diastolic CHF -echo EF 65-70%, no LVH, mild RA dilation, moderate TR, moderate AR, no pericardial effusion -fluids successfully removed during previous HD sessions -Lasix has been held -no extra fluids -CMP 8. paroxysmal a-fib HR 100s -metoprolol has been held when pressure is low -INR 1.55 yesterday, Eliquis held -EKG 11/08/18: irregular rhythm, HR 98, QTc 589 -monitor QTc and medications which could increase it 9. thrombocytopenia Plt 59. DIC/coagulopathy -Factors V, VIII, X and XII, mixed PT and PTT LAC studies pending -monitor for signs of bleeding -HIT negative -type and cross done -heme following 10. INR 1.55 -Eliquis held 11. hypoglycemia well-controlled -feedings stopped after vomiting x 2 in the last day; will restart feeds tomorrow and titrate up -SSI 12. transaminitis, Alk Phos AST 16, ALT <6, Alk Phos 124 -negative FACUNDO, c-ANCA, p-ANCA, DS DNA Ab, GBM Ab, Heparin-induced plt Ab, myeloperoxidase Ab -negative hep B, and hep C, negative hep A IgM -GI following 13. HTN well-controlled, currently on metoprolol -frequent VS checks 14. decubitus ulcer -santyl 15. hemorrhagic bullae -dressing on right hand -derm consulted 16. COPD RR normal on ventilator. 17. Parkinson's -continue home meds when receiving feedings 18. hx of prostate cancer -PSA FEN none monitor lytes tube feedings held DVT Ppe SCDs, Eliquis 2.5mg BID- held GI Ppe Protonix- held Dispo The family, palliative care, and the medicine team met this week to discuss goals of care. Speech consulted for communication. Suggested valve to be placed by pulm to allow pt to attempt to speak. They are currently working with the family on Y/N headshaking and eye gaze for communication. The family will decide over the weekend if they want to continue HD. Son is point of contact. DNR Visit type - Emergency Visit Emergency Visit: Yes ED Registration Date: 11/05/18 Care time: The patient presented to the Emergency Department on the above date and was hospitalized for further evaluation of their emergent condition. - New Patient This patient is new to me today: No - Critical Care Critical Care patient: No - Discharge Referral Referred to [facility] Med [facility] No ATTENDING PHYSICIAN STATEMENT I saw and evaluated the patient. I reviewed the resident's note and discussed the case with the resident. I agree with the resident's findings and plan as documented. SUBJECTIVE: OBJECTIVE: ASSESSMENT AND PLAN:
--- NOTE | 2018-11-27 12:55 | PN ---
Progress Note (short form) - Note Progress Note: Vented on volume assist control. No fevers recorded. Intake & Output 11/24/18 11/25/18 11/26/18 11/27/18 23:59 23:59 23:59 23:59 Intake Total 600 1560 650 300 Output Total 2560 2450 2530 2500 Balance -6968 -470 -1880 -2200 Last Vital Signs Temp Pulse Resp BP Pulse Ox 99.8 F H 103 H 14 123/58 L 100 11/27/18 06:00 11/27/18 06:00 11/27/18 11:51 11/27/18 06:00 11/26/18 22:00 Active Medications Amantadine HCl (Symmetrel Oral Solution -) 100 mg GT BID [facility] Last Admin: 11/27/18 11:35 Dose: 100 mg Amiodarone HCl (Cordarone -) 200 mg GT DAILY [facility] Last Admin: 11/27/18 11:42 Dose: 200 mg Carbidopa/Levodopa (Sinemet 25/250 -) 2 each GT TID [facility] Last Admin: 11/27/18 05:24 Dose: 2 each Collagenase (Santyl -) 1 applic TP DAILY [facility]; Protocol Last Admin: 11/27/18 12:00 Dose: 1 applic Sodium Chloride (Normal Saline -) 250 mls @ 3,000 mls/hr IV PRN PRN PRN Reason: Hypotension during Dialysis Stop: 11/27/18 14:43 Latanoprost (Xalatan 0.005% Eye Drops -) 1 drop OU HS [facility] Last Admin: 11/26/18 22:11 Dose: 1 drop Metoprolol Tartrate (Lopressor -) 75 mg GT BID [facility] Last Admin: 11/27/18 12:09 Dose: Not Given Metoprolol Tartrate (Lopressor Injection -) 5 mg IVPUSH Q4H PRN PRN Reason: TACHYCARDIA Pantoprazole Sodium (Protonix Iv) 40 mg IVPUSH DAILY [facility] Last Admin: 11/27/18 11:35 Dose: 40 mg Gen: Awake, vented, NAD Heart: irregular Lung: scattered rhonchi Abd: soft, nontender Ext: + edema Laboratory Results - last 24 hr 11/23/18 11/23/18 11/26/18 15:30 15:30 23:50 WBC RBC Hgb Hct MCV MCH MCHC RDW Plt Count MPV Absolute Neuts (auto) Neutrophils % Lymphocytes % Monocytes % Eosinophils % Basophils % Nucleated RBC % Lupus Anticoag PTT Mix 49.8 H LA PTT Baseline 58.2 H dRVVT Confirm Interp 59.5 H dRVVT Mixing Study 42.5 Hexagonal Phospholipid 0 Lupus Anticoag Comment Comment: Factor V Leiden Cancelled Factor VII Activity 31 L Sodium Potassium Chloride Carbon Dioxide Anion Gap BUN Creatinine Est GFR (CKD-EPI)AfAm Est GFR (CKD-EPI)NonAf POC Glucometer 80 Random Glucose Calcium Total Bilirubin AST ALT Alkaline Phosphatase Total Protein Albumin 11/27/18 11/27/18 11/27/18 06:00 08:00 12:05 WBC 7.0 RBC 2.53 L Hgb 7.8 L Hct 24.2 L MCV 95.7 MCH 30.9 MCHC 32.3 RDW 27.2 H Plt Count 53 L MPV 9.5 Absolute Neuts (auto) 5.4 Neutrophils % 76.4 Lymphocytes % 10.2 Monocytes % 12.1 H Eosinophils % 0.7 D Basophils % 0.6 Nucleated RBC % 0 Lupus Anticoag PTT Mix LA PTT Baseline dRVVT Confirm Interp dRVVT Mixing Study Hexagonal Phospholipid Lupus Anticoag Comment Factor V Leiden Factor VII Activity Sodium 141 Potassium 3.5 Chloride 101 Carbon Dioxide 26 Anion Gap 14 BUN 39.9 H Creatinine 3.3 H Est GFR (CKD-EPI)AfAm 18.31 Est GFR (CKD-EPI)NonAf 15.80 POC Glucometer 67 Random Glucose 73 L Calcium 8.3 L Total Bilirubin 1.9 H AST 16 ALT < 6 L Alkaline Phosphatase 124 H Total Protein 5.6 L Albumin 2.5 L 11/27/18 12:07 WBC RBC Hgb Hct MCV MCH MCHC RDW Plt Count MPV Absolute Neuts (auto) Neutrophils % Lymphocytes % Monocytes % Eosinophils % Basophils % Nucleated RBC % Lupus Anticoag PTT Mix LA PTT Baseline dRVVT Confirm Interp dRVVT Mixing Study Hexagonal Phospholipid Lupus Anticoag Comment Factor V Leiden Factor VII Activity Sodium Potassium Chloride Carbon Dioxide Anion Gap BUN Creatinine Est GFR (CKD-EPI)AfAm Est GFR (CKD-EPI)NonAf POC Glucometer 66 Random Glucose Calcium Total Bilirubin AST ALT Alkaline Phosphatase Total Protein Albumin A/P Chronic Respiratory Failure Pneumonia Severe Sepsis Acute Kidney Injury Lactic Acidosis +Troponins likely Demand Ischemia Atrial Fibrillation Thrombocytopenia Anemia COPD HTN Parkinsons Disease - off antibiotics per ID - HD per renal with ultrafiltration - monitor urine output, creatinine - rate control - enteral feeds - DVT/GI prophylaxis - continue discussions regarding goals of care - poor overall prognosis, recommend comfort measures Dr Nelson
--- NOTE | 2018-11-27 13:44 | PN ---
Teaching Attending Note Name of Resident: Renate Montilla ATTENDING PHYSICIAN STATEMENT I saw and evaluated the patient. I reviewed the resident's note and discussed the case with the resident. I agree with the resident's findings and plan as documented. SUBJECTIVE: Unable to participate in interview, non-verbal, Trach/Vent. No further vomiting. OBJECTIVE: Afebrile, hemodynamically stable. Appears comfortable. Drowsy but rousable. Last Vital Signs Temp Pulse Resp BP Pulse Ox 99.8 F H 103 H 14 123/58 L 100 11/27/18 06:00 11/27/18 06:00 11/27/18 11:51 11/27/18 06:00 11/26/18 22:00 HEENT - s/p Trach to Vent, FiO2 40%. Heart - S1, S2, SM, irregular. Lungs - good air entry bilaterally with bilateral crackles. Abdomen - PEG in situ. Site dressed. No evidence of surrounding cellulitis. Abdomen softer non-tender. Rectal tube in place. - Galarza in situ, dark colored urine. Extremities - hemorrhagic bullae improving. Edema UEs, Edema+ LEs. Laboratory Results - last 24 hr 11/23/18 11/23/18 11/26/18 15:30 15:30 23:50 WBC RBC Hgb Hct MCV MCH MCHC RDW Plt Count MPV Absolute Neuts (auto) Neutrophils % Lymphocytes % Monocytes % Eosinophils % Basophils % Nucleated RBC % Lupus Anticoag PTT Mix 49.8 H LA PTT Baseline 58.2 H dRVVT Confirm Interp 59.5 H dRVVT Mixing Study 42.5 Hexagonal Phospholipid 0 Lupus Anticoag Comment Comment: Factor V Leiden Cancelled Factor VII Activity 31 L Sodium Potassium Chloride Carbon Dioxide Anion Gap BUN Creatinine Est GFR (CKD-EPI)AfAm Est GFR (CKD-EPI)NonAf POC Glucometer 80 Random Glucose Calcium Total Bilirubin AST ALT Alkaline Phosphatase Total Protein Albumin 11/27/18 11/27/18 11/27/18 06:00 08:00 12:05 WBC 7.0 RBC 2.53 L Hgb 7.8 L Hct 24.2 L MCV 95.7 MCH 30.9 MCHC 32.3 RDW 27.2 H Plt Count 53 L MPV 9.5 Absolute Neuts (auto) 5.4 Neutrophils % 76.4 Lymphocytes % 10.2 Monocytes % 12.1 H Eosinophils % 0.7 D Basophils % 0.6 Nucleated RBC % 0 Lupus Anticoag PTT Mix LA PTT Baseline dRVVT Confirm Interp dRVVT Mixing Study Hexagonal Phospholipid Lupus Anticoag Comment Factor V Leiden Factor VII Activity Sodium 141 Potassium 3.5 Chloride 101 Carbon Dioxide 26 Anion Gap 14 BUN 39.9 H Creatinine 3.3 H Est GFR (CKD-EPI)AfAm 18.31 Est GFR (CKD-EPI)NonAf 15.80 POC Glucometer 67 Random Glucose 73 L Calcium 8.3 L Total Bilirubin 1.9 H AST 16 ALT < 6 L Alkaline Phosphatase 124 H Total Protein 5.6 L Albumin 2.5 L 11/27/18 12:07 WBC RBC Hgb Hct MCV MCH MCHC RDW Plt Count MPV Absolute Neuts (auto) Neutrophils % Lymphocytes % Monocytes % Eosinophils % Basophils % Nucleated RBC % Lupus Anticoag PTT Mix LA PTT Baseline dRVVT Confirm Interp dRVVT Mixing Study Hexagonal Phospholipid Lupus Anticoag Comment Factor V Leiden Factor VII Activity Sodium Potassium Chloride Carbon Dioxide Anion Gap BUN Creatinine Est GFR (CKD-EPI)AfAm Est GFR (CKD-EPI)NonAf POC Glucometer 66 Random Glucose Calcium Total Bilirubin AST ALT Alkaline Phosphatase Total Protein Albumin Current Medications Generic Name Dose Route Start Last Admin Trade Name Freq PRN Reason Stop Dose Admin Amantadine HCl 100 mg 11/15/18 10:00 11/27/18 11:35 Symmetrel Oral Solution - GT 100 mg BID [facility] Administration Amiodarone HCl 200 mg 11/15/18 10:00 11/27/18 11:42 Cordarone - GT 200 mg DAILY [facility] Administration Carbidopa/Levodopa 2 each 11/15/18 06:00 11/27/18 05:24 Sinemet 25/250 - GT 2 each TID [facility] Administration Collagenase 1 applic 11/15/18 10:00 11/27/18 12:00 Santyl - TP 1 applic DAILY [facility] Administration Protocol Sodium Chloride 250 mls @ 3,000 mls/hr 11/26/18 14:42 Normal Saline - IV 11/27/18 14:43 PRN PRN Hypotension during Dialysis Latanoprost 1 drop 11/15/18 22:00 11/26/18 22:11 Xalatan 0.005% Eye Drops - OU 1 drop HS [facility] Administration Metoprolol Tartrate 75 mg 11/15/18 10:00 11/27/18 12:09 Lopressor - GT Not Given BID [facility] Metoprolol Tartrate 5 mg 11/14/18 23:17 Lopressor Injection - IVPUSH Q4H PRN TACHYCARDIA Pantoprazole Sodium 40 mg 11/15/18 10:00 11/27/18 11:35 Protonix Iv IVPUSH 40 mg DAILY [facility] Administration Home Medications Medication Instructions Recorded Acetaminophen [Tylenol] 650 mg GT QID PRN 11/05/18 Albuterol 2.5/Ipratropium 0.5 1 neb IH QID 11/05/18 [Duoneb -] Amantadine Oral Solution 100 mg GT BID 11/05/18 [Symmetrel Oral Solution -] Amiodarone HCl [Cordarone -] 200 mg GT DAILY 11/05/18 Apixaban [Eliquis -] 5 mg GT BID 11/05/18 Ascorbic Acid 500 mg GT DAILY 11/05/18 Carbidopa/Levodopa 25/250 [Sinemet 2 each PO TID 11/05/18 25/250 -] Docusate Liquid [Colace Liquid -] 100 mg GT DAILY 11/05/18 Famotidine 20 mg GT DAILY 11/05/18 Furosemide [Lasix -] 40 mg GT DAILY 11/05/18 Homatropine HBr 5% Ophth Soln 1 drop OD QID 11/05/18 [Isopto Homatropine] Latanoprost 0.005% Eye Drops 1 drop OU HS 11/05/18 [Xalatan 0.005% Eye Drops -] Metoprolol Tartrate [Lopressor -] 50 mg GT BID 11/05/18 Multivitamin [Multiple Vitamins] 15 ml GT DAILY 11/05/18 Polyethylene Glycol 3350 [Miralax 17 gm GT DAILY 11/05/18 (For Bowel Prep) -] Tobramycin/Dexamethasone [Tobradex 1 drop OU BID 11/05/18 Eye Drops] Zinc Sulfate [Zinc-220] 220 mg GT DAILY 11/05/18 ASSESSMENT AND PLAN: 88 year old male with Parkinson's Disease, COPD, HTN, Atrial Fibrillation, CRF s /p Trach (Vent dependent)/PEG, presented with fevers/chills, abdominal pain/ distension, initially admitted to ICU with SBO and sepsis secondary to Pneumonia. 1. Acute on Chronic Respiratory Failure and Severe Sepsis secondary to Pneumonia. s/p tracheostomy, vent dependent. Sputum Cx positive for Pseudomonas - completed 14 days Ceftazidime. Afebrile, hemodynamicaly stable. Sepsis resolved. ID/Pulm following. 2. [place] with fluid overload, sec to Sepsis/ATN vs Contrast Nephropathy - initiated on HD/Ultrafiltration via femoral Cath - s/p femoral catheter exchange 11/[address] shows some ongoing bilateral pleural effusions. Last HD 11/26. 3. SBO - recurrent, abdomen appears softer this AM but AXR shows ileus versus SBO. Continue to hold feeds. Will re-image in AM. 4. Hematuria - likely sec to thrombocytopenia and galarza in situ. s/p 1 unit PRBCs. 5. Anemia - multifactorial - sec to renal failure/sepsis/acute blood loss (sec to Hematuria) - H.H 7.8/24.2 s/p 1 unit PRBCs. Epogen as per nephrology. Will monitor H/H. 6. Coagulopathy - Elevated INR - s/p Vitamin K. Hematology following. For further investigation/management as per Hematology. 7. Thrombocytopenia - etiology unclear - improving - HIT work-up negative. Due to ?Amio ?Abx. Hematology following. Will monitor. 8. Elevated LFTs - secondary to sepsis/shock liver. Transaminases normalized. GI evaluated. 9. Atrial fibrillation with RVR - resumed on Metoprolol (at increased dose of 75mg BID) and Amiodarone. Started on Eliquis (now held due to elevated INR and Thrombocytopenia). 10. Hemorrhagic Bullae - noted on hands. Improving, will monitor. 11. Elevated Troponin - sec to demand due to sepsis. TnI max 0.07. No further work-up currently. Can follow with cardiology as out-patient. 12. Parkinson's Disease - Continue Sinemet/Amantadine. 13. HTN - BP borderline. Resumed on Metoprolol. 14. Dysphagia s/p PEG - Enteral feeds via PEG held due to concern for ileus vs SBO. DVT Px - Eliquis held. SCDs. GI Px - PPI
[2018-11-27 14:06] LABS: FACTOR 5 ACTIVITY 58 % (70-150)
[2018-11-27] MEDS: LATANOPROST 0.005% OPHTH SOLN 2.5ML BOTTLE OU SCH (22:24)
[2018-11-28] MEDS: CARBIDOPA/LEVODOPA 25/250 TABLET (FP) GT SCH ×3 (05:02→22:27)
[2018-11-28 08:12] LABS: BASO % 0.4 % (0-2.0); EOS % 2.3 % (0-4.5); HEMATOCRIT 25.7 % (35.4-49); HEMOGLOBIN 8.2 GM/dL (11.7-16.9); MEAN PLT VOLUME 9.6 fl (7.5-11.1); MONO % 12.3 % (3.8-10.2); PLATELET COUNT 73 K/MM3 (134-434); RBC 2.64 M/mm3 (4.00-5.60); RDW 26.8 % (11.9-15.9); WHITE BLOOD COUNT 6.8 K/mm3 (4.0-10.0)
[2018-11-28 09:10] LABS: ALBUMIN 2.4 g/dl (3.4-5.0); ALK PHOS 124 U/L (45-117); ANION GAP 15 MMOL/L (8-16); BILIRUBIN,TOTAL 1.9 mg/dL (0.2-1); CALCIUM 8.3 mg/dL (8.5-10.1); CHLORIDE 101 mmol/L (98-107); CO2 25 mmol/L (21-32); CREATININE 3.8 mg/dL (0.55-1.3); GLUCOSE,RANDOM 83 mg/dL (74-106); PHOSPHOROUS 5.1 mg/dL (2.5-4.9); POTASSIUM 3.5 mmol/L (3.5-5.1); SGOT/AST 15 U/L (15-37); SGPT/ALT < 6 U/L (13-61); SODIUM 141 mmol/L (136-145); TOT PROT 5.5 g/dl (6.4-8.2)
[2018-11-28] MEDS ORDERED: PT OWN MED DRAWER 7, Y5N ONE ×2 (11:07→13:51)
--- NOTE | 2018-11-28 11:33 | PN ---
Progress Note (short form) - Note Progress Note: Renal coverage for Dr. Ibrahim Seen and examined at the bedside on vent via trach making small amount of urine via galarza Vital Signs Temperature 97.8 F 11/28/18 05:32 Pulse Rate 96 H 11/28/18 05:32 Respiratory Rate 14 11/28/18 08:27 Blood Pressure 114/57 L 11/28/18 05:32 O2 Sat by Pulse Oximetry (%) 100 11/27/18 09:00 Intake & Output 11/25/18 11/26/18 11/27/18 11/28/18 23:59 23:59 23:59 23:59 Intake Total 1560 650 300 200 Output Total 2450 2530 2700 Balance -890 -1880 -2400 200 NAD + upper extremity and LE edema CBC, BMP 11/28/18 06:00 11/28/18 06:00 Current Medications Amantadine HCl (Symmetrel Oral Solution -) 100 mg GT BID [facility] Last Admin: 11/27/18 22:24 Dose: 100 mg Amiodarone HCl (Cordarone -) 200 mg GT DAILY [facility] Last Admin: 11/27/18 11:42 Dose: 200 mg Carbidopa/Levodopa (Sinemet 25/250 -) 2 each GT TID [facility] Last Admin: 11/28/18 05:02 Dose: 2 each Collagenase (Santyl -) 1 applic TP DAILY [facility]; Protocol Last Admin: 11/27/18 12:00 Dose: 1 applic Latanoprost (Xalatan 0.005% Eye Drops -) 1 drop OU HS [facility] Last Admin: 11/27/18 22:24 Dose: 1 drop Metoprolol Tartrate (Lopressor -) 75 mg GT BID [facility] Last Admin: 11/27/18 22:23 Dose: 75 mg Metoprolol Tartrate (Lopressor Injection -) 5 mg IVPUSH Q4H PRN PRN Reason: TACHYCARDIA Pantoprazole Sodium (Protonix Iv) 40 mg IVPUSH DAILY [facility] Last Admin: 11/27/18 11:35 Dose: 40 mg Impression: 1. [place] requiring dialysis 2. sepsis 3. PNA 4. SBO 5. Parkinson's 6. a-fib 7. chronic resp failure 8. severe sepsis 9. lactic acidosis 10. copd 11. hx of htn 12. thrombocytopenia s/p dialysis Homero acute need for dialysis today. Trend renal function and urine output for 48-72 hours off Hd and monitor for improvement no overt electrolyte or acid base disturbance noted urine output remains poor will reaccess for need for dialysis in AM continue vent support overall prognosis is guarded. Ralph Pettit DO
[2018-11-28] MEDS: METOPROLOL TARTRATE 25 MG TABLET (FP) GT SCH ×2 (11:55→22:27)
[2018-11-28] MEDS: AMIODARONE HCL 200 MG TABLET (FP) GT SCH (11:55)
[2018-11-28] MEDS: PANTOPRAZOLE SODIUM 40 MG VIAL IVPUSH SCH (11:56)
[2018-11-28] MEDS: AMANTADINE HCL 100MG/10 ML UNIT DOSE CUPS GT SCH ×2 (11:56→22:27)
[2018-11-28] MEDS: COLLAGENASE CLOSTRIDIUM HIST. 30 GRAMS TUBE TP SCH (11:58)
--- NOTE | 2018-11-28 13:41 | PN ---
Progress Note (short form) - Note Progress Note: Seen in follow up. No new issues this morning. Ongoing hematuria - unchanged. Meds reviewed. Current Medications Generic Name Dose Route Start Last Admin Trade Name Osmani PRN Reason Stop Dose Admin Amantadine HCl 100 mg 11/15/18 10:00 11/28/18 11:56 Symmetrel Oral Solution - GT 100 mg BID [facility] Administration Amiodarone HCl 200 mg 11/15/18 10:00 11/28/18 11:55 Cordarone - GT 200 mg DAILY [facility] Administration Carbidopa/Levodopa 2 each 11/15/18 06:00 11/28/18 05:02 Sinemet 25/250 - GT 2 each TID [facility] Administration Collagenase 1 applic 11/15/18 10:00 11/28/18 11:58 Santyl - TP 1 applic DAILY [facility] Administration Protocol Latanoprost 1 drop 11/15/18 22:00 11/27/18 22:24 Xalatan 0.005% Eye Drops - OU 1 drop HS [facility] Administration Metoprolol Tartrate 75 mg 11/15/18 10:00 11/28/18 11:55 Lopressor - GT 75 mg BID [facility] Administration Metoprolol Tartrate 5 mg 11/14/18 23:17 Lopressor Injection - IVPUSH Q4H PRN TACHYCARDIA Pantoprazole Sodium 40 mg 11/15/18 10:00 11/28/18 11:56 Protonix Iv IVPUSH 40 mg DAILY [facility] Administration Last Vital Signs Temp Pulse Resp BP Pulse Ox 97.8 F 102 H 14 136/58 L 100 11/28/18 10:00 11/28/18 10:00 11/28/18 12:05 11/28/18 10:00 11/27/18 09:00 Labs reviewed: CBC, BMP 11/28/18 06:00 11/28/18 06:00 INR, PTT INR 1.55 (0.83-1.09) H 11/26/18 06:45 Fibrinogen 415.0 mg/dL (238-498) 11/21/18 14:20 Assessment. Metastatic lung cancer, with extensive bone mets, who presents following a fall , with failure to thrive, and is noted to have preicolonic abscesses, presently being conservatively managed, with some improvement noted on most recent CT scan. Continue supportive care, analgesia, Abics as per ID, parenteral nutrition. Prior prolonged coagulation times, likely attributable to consumption coagulopathy, but possibly some component of vitamin K deficiency, now improved. Contiune observation - daily PT and PTT. FFP PRN, if exhibits bleeding manifestations - (not occurring presently).
--- NOTE | 2018-11-28 13:59 | PN ---
Progress Note (short form) - Note Progress Note: SUBJECTIVE: Unable to participate in interview, non-verbal, Trach/Vent. No further vomiting. OBJECTIVE: Afebrile, hemodynamically stable. Appears comfortable. Drowsy but rousable. Last Vital Signs Temp Pulse Resp BP Pulse Ox 97.8 F 102 H 14 136/58 L 100 11/28/18 10:00 11/28/18 10:00 11/28/18 12:05 11/28/18 10:00 11/27/18 09:00 HEENT - s/p Trach to Vent, FiO2 40%. Heart - S1, S2, SM, irregular. Lungs - good air entry bilaterally with bilateral crackles. Abdomen - PEG in situ. Site dressed. No evidence of surrounding cellulitis. Abdomen soft but generally tender +. Rectal tube in place. - Salguero in situ, small volume dark colored urine. Extremities - hemorrhagic bullae improving. Edema UEs, Edema+ LEs. Laboratory Results - last 24 hr 11/23/18 11/23/18 11/27/18 15:30 15:30 14:02 WBC RBC Hgb Hct MCV MCH MCHC RDW Plt Count MPV Absolute Neuts (auto) Neutrophils % Lymphocytes % Monocytes % Eosinophils % Basophils % Nucleated RBC % Saline-Adjusted PTT TNP PT Mixing Study 14.4 H PTT Patient/Cntrl Mix 30.6 H PTT Normal Plasma Pre 30.0 Factor V Activity 58 L Factor X 101 Sodium Potassium Chloride Carbon Dioxide Anion Gap BUN Creatinine Est GFR (CKD-EPI)AfAm Est GFR (CKD-EPI)NonAf POC Glucometer 98 Random Glucose Calcium Phosphorus Total Bilirubin AST ALT Alkaline Phosphatase Total Protein Albumin 11/27/18 11/28/18 11/28/18 22:29 06:00 06:00 WBC 6.8 RBC 2.64 L Hgb 8.2 L Hct 25.7 L MCV 97.0 H MCH 31.0 MCHC 32.0 RDW 26.8 H Plt Count 73 L D MPV 9.6 Absolute Neuts (auto) 4.9 Neutrophils % 72.0 Lymphocytes % 13.0 D Monocytes % 12.3 H Eosinophils % 2.3 D Basophils % 0.4 Nucleated RBC % 0 Saline-Adjusted PTT PT Mixing Study PTT Patient/Cntrl Mix PTT Normal Plasma Pre Factor V Activity Factor X Sodium 141 Potassium 3.5 Chloride 101 Carbon Dioxide 25 Anion Gap 15 BUN 45.0 H Creatinine 3.8 H Est GFR (CKD-EPI)AfAm 15.44 Est GFR (CKD-EPI)NonAf 13.32 POC Glucometer 81 Random Glucose 83 Calcium 8.3 L Phosphorus 5.1 H Total Bilirubin 1.9 H AST 15 ALT < 6 L Alkaline Phosphatase 124 H Total Protein 5.5 L Albumin 2.4 L 11/28/18 06:20 WBC RBC Hgb Hct MCV MCH MCHC RDW Plt Count MPV Absolute Neuts (auto) Neutrophils % Lymphocytes % Monocytes % Eosinophils % Basophils % Nucleated RBC % Saline-Adjusted PTT PT Mixing Study PTT Patient/Cntrl Mix PTT Normal Plasma Pre Factor V Activity Factor X Sodium Potassium Chloride Carbon Dioxide Anion Gap BUN Creatinine Est GFR (CKD-EPI)AfAm Est GFR (CKD-EPI)NonAf POC Glucometer 87 Random Glucose Calcium Phosphorus Total Bilirubin AST ALT Alkaline Phosphatase Total Protein Albumin Current Medications Generic Name Dose Route Start Last Admin Trade Name Freq PRN Reason Stop Dose Admin Amantadine HCl 100 mg 11/15/18 10:00 11/28/18 11:56 Symmetrel Oral Solution - GT 100 mg BID [facility] Administration Amiodarone HCl 200 mg 11/15/18 10:00 11/28/18 11:55 Cordarone - GT 200 mg DAILY [facility] Administration Carbidopa/Levodopa 2 each 11/15/18 06:00 11/28/18 05:02 Sinemet 25/250 - GT 2 each TID [facility] Administration Collagenase 1 applic 11/15/18 10:00 11/28/18 11:58 Santyl - TP 1 applic DAILY [facility] Administration Protocol Latanoprost 1 drop 11/15/18 22:00 11/27/18 22:24 Xalatan 0.005% Eye Drops - OU 1 drop HS [facility] Administration Metoprolol Tartrate 75 mg 11/15/18 10:00 11/28/18 11:55 Lopressor - GT 75 mg BID [facility] Administration Metoprolol Tartrate 5 mg 11/14/18 23:17 Lopressor Injection - IVPUSH Q4H PRN [facility]CARD[facility] Pantoprazole Sodium 40 mg 11/15/18 10:00 11/28/18 11:56 Protonix Iv IVPUSH 40 mg DAILY [facility] Administration Home Medications Medication Instructions Recorded Acetaminophen [Tylenol] 650 mg GT QID PRN 11/05/18 Albuterol 2.5/Ipratropium 0.5 1 neb IH QID 11/05/18 [Duoneb -] Amantadine Oral Solution 100 mg GT BID 11/05/18 [Symmetrel Oral Solution -] Amiodarone HCl [Cordarone -] 200 mg GT DAILY 11/05/18 Apixaban [Eliquis -] 5 mg GT BID 11/05/18 Ascorbic Acid 500 mg GT DAILY 11/05/18 Carbidopa/Levodopa 25/250 [Sinemet 2 each PO TID 11/05/18 25/250 -] Docusate Liquid [Colace Liquid -] 100 mg GT DAILY 11/05/18 Famotidine 20 mg GT DAILY 11/05/18 Furosemide [Lasix -] 40 mg GT DAILY 11/05/18 Homatropine HBr 5% Ophth Soln 1 drop OD QID 11/05/18 [Isopto Homatropine] Latanoprost 0.005% Eye Drops 1 drop OU HS 11/05/18 [Xalatan 0.005% Eye Drops -] Metoprolol Tartrate [Lopressor -] 50 mg GT BID 11/05/18 Multivitamin [Multiple Vitamins] 15 ml GT DAILY 11/05/18 Polyethylene Glycol 3350 [Miralax 17 gm GT DAILY 11/05/18 (For Bowel Prep) -] Tobramycin/Dexamethasone [Tobradex 1 drop OU BID 11/05/18 Eye Drops] Zinc Sulfate [Zinc-220] 220 mg GT DAILY 11/05/18 ASSESSMENT AND PLAN: 88 year old male with Parkinson's Disease, COPD, HTN, Atrial Fibrillation, CRF s /p Trach (Vent dependent)/PEG, presented with fevers/chills, abdominal pain/ distension, initially admitted to ICU with SBO and sepsis secondary to Pneumonia. 1. Acute on Chronic Respiratory Failure and Severe Sepsis secondary to Pneumonia. s/p tracheostomy, vent dependent. Sputum Cx positive for Pseudomonas - completed 14 days Ceftazidime. Afebrile, hemodynamicaly stable. Sepsis resolved. ID/Pulm following. 2. [place] with fluid overload, sec to Sepsis/ATN vs Contrast Nephropathy - initiated on HD/Ultrafiltration via femoral Cath - s/p femoral catheter exchange 11/[address] shows some ongoing bilateral pleural effusions. Last HD 11/26. Family to decide re: further HD. 3. SBO - recurrent, abdomen again appears tender. AXR 11/27/18 showed ileus versus SBO. Feeds held. awaiting repeat AXR. 4. Hematuria - likely sec to [place]/thrombocytopenia. Salguero in situ with low vol bloody urine. s/p 1 unit PRBCs. 5. Anemia - multifactorial - sec to renal failure/sepsis/acute blood loss (sec to Hematuria) - H.H 8.2/25.7 s/p 1 unit PRBCs. Epogen as per nephrology. Will monitor H/H. 6. Coagulopathy - Elevated PT/PTT - s/p Vitamin K. Hematology following. For further investigation/management as per Hematology. 7. Thrombocytopenia - etiology unclear - improving - HIT work-up negative. Due to ?Amio ?Abx. Hematology following. Will monitor. 8. Elevated LFTs - secondary to sepsis/shock liver. Transaminases normalized. GI evaluated. 9. Atrial fibrillation with RVR - resumed on Metoprolol (at increased dose of 75mg BID) and Amiodarone. Started on Eliquis (now held due to elevated INR and Thrombocytopenia). 10. Hemorrhagic Bullae - noted on hands. Improving, will monitor. 11. Elevated Troponin - sec to demand due to sepsis. TnI max 0.07. No further work-up currently. Can follow with cardiology as out-patient. 12. Parkinson's Disease - Continue Sinemet/Amantadine. 13. HTN - BP borderline. Resumed on Metoprolol. 14. Dysphagia s/p PEG - Enteral feeds via PEG held due to concern for ileus vs SBO. Repeat AXR pending. 15, Hypoglycemia - required D50 11/27. Off Feeds and IV fluids for now. Will monitor. DVT Px - Eliquis held. SCDs. GI Px - PPI Visit type - Emergency Visit Emergency Visit: Yes ED Registration Date: 11/05/18 Care time: The patient presented to the Emergency Department on the above date and was hospitalized for further evaluation of their emergent condition. - New Patient This patient is new to me today: No - Critical Care Critical Care patient: No - Discharge Referral Referred to [facility] No
--- NOTE | 2018-11-28 14:13 | PN ---
Progress Note (short form) - Note Progress Note: Vented on volume assist control. Eyes are open. Tracking. No fevers recorded. Intake & Output 11/25/18 11/26/18 11/27/18 11/28/18 23:59 23:59 23:59 23:59 Intake Total 1560 650 300 200 Output Total 2450 2530 2700 Balance -890 -1880 -2400 200 Last Vital Signs Temp Pulse Resp BP Pulse Ox 97.8 F 102 H 14 136/58 L 100 11/28/18 10:00 11/28/18 10:00 11/28/18 12:05 11/28/18 10:00 11/27/18 09:00 Active Medications Amantadine HCl (Symmetrel Oral Solution -) 100 mg GT BID [facility] Last Admin: 11/28/18 11:56 Dose: 100 mg Amiodarone HCl (Cordarone -) 200 mg GT DAILY [facility] Last Admin: 11/28/18 11:55 Dose: 200 mg Carbidopa/Levodopa (Sinemet 25/250 -) 2 each GT TID [facility] Last Admin: 11/28/18 05:02 Dose: 2 each Collagenase (Santyl -) 1 applic TP DAILY [facility]; Protocol Last Admin: 11/28/18 11:58 Dose: 1 applic Latanoprost (Xalatan 0.005% Eye Drops -) 1 drop OU HS [facility] Last Admin: 11/27/18 22:24 Dose: 1 drop Metoprolol Tartrate (Lopressor -) 75 mg GT BID [facility] Last Admin: 11/28/18 11:55 Dose: 75 mg Metoprolol Tartrate (Lopressor Injection -) 5 mg IVPUSH Q4H PRN PRN Reason: TACHYCARDIA Pantoprazole Sodium (Protonix Iv) 40 mg IVPUSH DAILY [facility] Last Admin: 11/28/18 11:56 Dose: 40 mg Gen: Awake, vented, NAD Heart: irregular Lung: scattered rhonchi Abd: soft, nontender Ext: + edema Laboratory Results - last 24 hr 11/23/18 11/27/18 11/27/18 15:30 14:02 22:29 WBC RBC Hgb Hct MCV MCH MCHC RDW Plt Count MPV Absolute Neuts (auto) Neutrophils % Lymphocytes % Monocytes % Eosinophils % Basophils % Nucleated RBC % Saline-Adjusted PTT TNP PT Mixing Study 14.4 H PTT Patient/Cntrl Mix 30.6 H PTT Normal Plasma Pre 30.0 Sodium Potassium Chloride Carbon Dioxide Anion Gap BUN Creatinine Est GFR (CKD-EPI)AfAm Est GFR (CKD-EPI)NonAf POC Glucometer 98 81 Random Glucose Calcium Phosphorus Total Bilirubin AST ALT Alkaline Phosphatase Total Protein Albumin 11/28/18 11/28/18 11/28/18 06:00 06:00 06:20 WBC 6.8 RBC 2.64 L Hgb 8.2 L Hct 25.7 L MCV 97.0 H MCH 31.0 MCHC 32.0 RDW 26.8 H Plt Count 73 L D MPV 9.6 Absolute Neuts (auto) 4.9 Neutrophils % 72.0 Lymphocytes % 13.0 D Monocytes % 12.3 H Eosinophils % 2.3 D Basophils % 0.4 Nucleated RBC % 0 Saline-Adjusted PTT PT Mixing Study PTT Patient/Cntrl Mix PTT Normal Plasma Pre Sodium 141 Potassium 3.5 Chloride 101 Carbon Dioxide 25 Anion Gap 15 BUN 45.0 H Creatinine 3.8 H Est GFR (CKD-EPI)AfAm 15.44 Est GFR (CKD-EPI)NonAf 13.32 POC Glucometer 87 Random Glucose 83 Calcium 8.3 L Phosphorus 5.1 H Total Bilirubin 1.9 H AST 15 ALT < 6 L Alkaline Phosphatase 124 H Total Protein 5.5 L Albumin 2.4 L A/P Chronic Respiratory Failure Pneumonia Severe Sepsis Acute Kidney Injury Lactic Acidosis +Troponins likely Demand Ischemia Atrial Fibrillation Thrombocytopenia Anemia COPD HTN Parkinsons Disease - off antibiotics per ID - HD per renal with ultrafiltration - monitor urine output, creatinine - rate control - enteral feeds - DVT/GI prophylaxis - continue discussions regarding goals of care - poor overall prognosis, recommend comfort measures Dr Nelson
--- NOTE | 2018-11-28 15:45 | PN.GI ---
GI Progress Note Subjective: Patient's nurse asked me to reevaluate patient. Has been vomiting when tube feeds are restarted. No vomiting today. Stopped tube feeds on the . AXR revealed dilated bowel loops, both large and small. Last vomited CT scan of the abdomen and pelvis revealed 11/23 revealed slightly distended small and large bowel loops without obvious obstruction, which was described as slightly increased from the previous CT scan from 11/09. Loose BM's described by nurse. liquid stool in fecal management tube - Objective Vital Signs: Vital Signs Temperature 97.8 F 11/28/18 10:00 Pulse Rate 102 H 11/28/18 10:00 Respiratory Rate 14 11/28/18 12:05 Blood Pressure 136/58 L 11/28/18 10:00 O2 Sat by Pulse Oximetry (%) 100 11/27/18 09:00 Constitutional: Calm Eyes: No: Sclera Icterus Cardiovascular: Yes: Pulse Irregular Respiratory: Yes: Diminished (at bases bilaterally) Gastrointestinal Inspection: Yes: Other (G-tube in mid abdomen) ...Auscultate: Yes: Normoactive Bowel Sounds ...Palpate: Yes: Soft. No: Tenderness (No grimacing upon palpation) ...Percussion: No: Tympanitic Labs: CBC, BMP 11/28/18 06:00 11/28/18 06:00 INR, PTT INR 1.55 (0.83-1.09) H 11/26/18 06:45 Fibrinogen 415.0 mg/dL (238-498) 11/21/18 14:20 - ....Imaging X-ray: Report Reviewed, Image Reviewed Cat Scan: Report Reviewed, Image Reviewed Problem List - Problems (1) Ileus Assessment/Plan: Suspected ileus in setting of bed bound states, chronic ventilatory support and underlying parkinson's disease on therapy. Distended bowel included both large and small. I suspect that if previous imaging studies refelected an early SBO, the recent imaging studies would not have revealed dilated colon loops as well. rather, they would likely have been collapsed. Can obtain surgical opinion regarding this. Trial of short term promotility agent with reglan, renally dosed 5mg IVPB BID for 3 days and reinitiate tube feeds. If still cannot tolerate tube feeds and there is persistent vomiting, then NGT for decompression from above could be considered. Check stool for C. Diff. Code(s): K56.7 - ILEUS, UNSPECIFIED
[2018-11-28] MEDS ORDERED: DEXTROSE 50%-WATER - 25 GM/50 ML VIAL IVPUSH ONE (16:00)
[2018-11-28] MEDS ORDERED: DEXTROSE 5%-WATER - 1,000 ML IV SCH (16:00)
[2018-11-28] MEDS ORDERED: DEXTROSE 50%-WATER 25 GM/50 ML DISP.SYRIN ONE (16:06)
[2018-11-28] MEDS ORDERED: DEXTROSE 50%-WATER 25 GM/50 ML DISP.SYRIN IVPUSH ONE (16:15)
[2018-11-28] MEDS: METOCLOPRAMIDE HCL INJECTION 10 MG/2 ML VIAL IVPUSH SCH (21:07)
[2018-11-28] MEDS: LATANOPROST 0.005% OPHTH SOLN 2.5ML BOTTLE OU SCH (23:09)
[2018-11-29] MEDS: CARBIDOPA/LEVODOPA 25/250 TABLET (FP) GT SCH ×3 (05:04→21:29)
[2018-11-29 08:23] LABS: BASO % 0.5 % (0-2.0); EOS % 2.1 % (0-4.5); HEMATOCRIT 25.1 % (35.4-49); LYMPH % 13.8 % (8-40); MCHC 31.9 g/dl (32.0-35.9); MEAN CELL VOLUME 97.1 fl (80-96); MEAN PLT VOLUME 8.8 fl (7.5-11.1); MONO % 14.4 % (3.8-10.2); NEUT % 69.2 % (42.8-82.8); PLATELET COUNT 89 K/MM3 (134-434); RBC 2.59 M/mm3 (4.00-5.60); RDW 26.6 % (11.9-15.9); WHITE BLOOD COUNT 6.7 K/mm3 (4.0-10.0)
[2018-11-29 08:54] LABS: ALBUMIN 2.2 g/dl (3.4-5.0); ALK PHOS 112 U/L (45-117); ANION GAP 13 MMOL/L (8-16); BILIRUBIN,TOTAL 1.7 mg/dL (0.2-1); BLOOD UREA NITROGEN 48.5 mg/dL (7-18); CALCIUM 8.1 mg/dL (8.5-10.1); CHLORIDE 102 mmol/L (98-107); CO2 26 mmol/L (21-32); CREATININE 4.4 mg/dL (0.55-1.3); GLUCOSE,RANDOM 96 mg/dL (74-106); MAGNESIUM 2.3 mg/dL (1.8-2.4); PHOSPHOROUS 5.6 mg/dL (2.5-4.9); POTASSIUM 3.6 mmol/L (3.5-5.1); SGOT/AST 10 U/L (15-37); SGPT/ALT < 6 U/L (13-61); SODIUM 142 mmol/L (136-145)
[2018-11-29] MEDS ORDERED: PT OWN MED DRAWER 7, Y5N ONE (11:00)
[2018-11-29] MEDS: AMIODARONE HCL 200 MG TABLET (FP) GT SCH (11:14)
[2018-11-29] MEDS: METOPROLOL TARTRATE 25 MG TABLET (FP) GT SCH ×2 (11:16→21:30)
[2018-11-29] MEDS: METOCLOPRAMIDE HCL INJECTION 10 MG/2 ML VIAL IVPUSH SCH ×2 (11:18→21:30)
[2018-11-29] MEDS: AMANTADINE HCL 100MG/10 ML UNIT DOSE CUPS GT SCH ×2 (11:18→21:29)
[2018-11-29 11:25] LABS: ANISOCYTOSIS 2+; MACROCYTOSIS 1+; OVALOCYTE 1+; PLATELET ESTIMATE DECREASED; TEAR DROP CELLS 1+
--- NOTE | 2018-11-29 12:29 | PN ---
Progress Note (short form) - Note Progress Note: Vented on volume assist control. Eyes are open. Tracking. No fevers recorded. Intake & Output 11/26/18 11/27/18 11/28/18 11/29/18 23:59 23:59 23:59 23:59 Intake Total 650 300 200 Output Total 2530 2700 50 Balance -1880 -2400 150 Last Vital Signs Temp Pulse Resp BP Pulse Ox 97.4 F L 81 16 113/56 L 100 11/29/18 05:56 11/29/18 05:56 11/29/18 10:10 11/29/18 05:56 11/28/18 21:00 Active Medications Amantadine HCl (Symmetrel Oral Solution -) 100 mg GT BID [facility] Last Admin: 11/29/18 11:18 Dose: 100 mg Amiodarone HCl (Cordarone -) 200 mg GT DAILY [facility] Last Admin: 11/29/18 11:14 Dose: 200 mg Carbidopa/Levodopa (Sinemet 25/250 -) 2 each GT TID [facility] Last Admin: 11/29/18 05:04 Dose: 2 each Collagenase (Santyl -) 1 applic TP DAILY [facility]; Protocol Last Admin: 11/28/18 11:58 Dose: 1 applic Dextrose (D5w -) 1,000 mls @ 25 mls/hr IV .[id number] [facility] Last Admin: 11/28/18 19:01 Dose: 25 mls/hr Latanoprost (Xalatan 0.005% Eye Drops -) 1 drop OU HS [facility] Last Admin: 11/28/18 23:09 Dose: 1 drop Metoclopramide HCl (Reglan Injection -) 5 mg IVPUSH BID [facility] Last Admin: 11/29/18 11:18 Dose: 5 mg Metoprolol Tartrate (Lopressor -) 75 mg GT BID [facility] Last Admin: 11/29/18 11:16 Dose: 75 mg Metoprolol Tartrate (Lopressor Injection -) 5 mg IVPUSH Q4H PRN PRN Reason: TACHYCARDIA Pantoprazole Sodium (Protonix Iv) 40 mg IVPUSH DAILY [facility] Last Admin: 11/28/18 11:56 Dose: 40 mg Gen: Awake, vented, NAD Heart: irregular Lung: scattered rhonchi Abd: soft, nontender Ext: + edema Laboratory Results - last 24 hr 11/28/18 11/28/18 11/29/18 15:39 22:21 06:36 WBC RBC Hgb Hct MCV MCH MCHC RDW Plt Count MPV Absolute Neuts (auto) Neutrophils % Lymphocytes % Monocytes % Eosinophils % Basophils % Nucleated RBC % Hypochromia Platelet Estimate Polychromasia Poikilocytosis Anisocytosis Microcytosis Macrocytosis Tear Drop Cells Ovalocytes Sodium Potassium Chloride Carbon Dioxide Anion Gap BUN Creatinine Est GFR (CKD-EPI)AfAm Est GFR (CKD-EPI)NonAf POC Glucometer 47 85 95 Random Glucose Calcium Phosphorus Magnesium Total Bilirubin AST ALT Alkaline Phosphatase Total Protein Albumin 11/29/18 11/29/18 08:00 08:00 WBC 6.7 RBC 2.59 L Hgb 8.0 L Hct 25.1 L MCV 97.1 H MCH 31.0 MCHC 31.9 L RDW 26.6 H Plt Count 89 L D MPV 8.8 Absolute Neuts (auto) 4.6 Neutrophils % 69.2 Lymphocytes % 13.8 Monocytes % 14.4 H Eosinophils % 2.1 Basophils % 0.5 Nucleated RBC % 0 Hypochromia 0 Platelet Estimate Decreased Polychromasia 1+ Poikilocytosis 1+ Anisocytosis 2+ Microcytosis 1+ Macrocytosis 1+ Tear Drop Cells 1+ Ovalocytes 1+ Sodium 142 Potassium 3.6 Chloride 102 Carbon Dioxide 26 Anion Gap 13 BUN 48.5 H Creatinine 4.4 H Est GFR (CKD-EPI)AfAm 12.93 Est GFR (CKD-EPI)NonAf 11.16 POC Glucometer Random Glucose 96 Calcium 8.1 L Phosphorus 5.6 H Magnesium 2.3 Total Bilirubin 1.7 H AST 10 L ALT < 6 L Alkaline Phosphatase 112 Total Protein 5.0 L Albumin 2.2 L A/P Chronic Respiratory Failure Pneumonia Severe Sepsis Acute Kidney Injury Lactic Acidosis +Troponins likely Demand Ischemia Atrial Fibrillation Thrombocytopenia Anemia COPD HTN Parkinsons Disease - off antibiotics per ID - HD per renal with ultrafiltration - monitor urine output, creatinine - rate control - enteral feeds - DVT/GI prophylaxis - continue discussions regarding goals of care Dr Nelson
[2018-11-29] MEDS ORDERED: SODIUM CHLORIDE 250 ML IV PRN (12:51)
[2018-11-29] MEDS: PANTOPRAZOLE SODIUM 40 MG VIAL IVPUSH SCH (12:57)
[2018-11-29] MEDS ORDERED: EPOETIN ALFA 3,000 UNIT/1 ML ML IVPUSH ONE (13:00)
--- NOTE | 2018-11-29 13:40 | PN ---
Physical Exam: SUBJECTIVE: Patient seen and examined. Trach and vent OBJECTIVE: Vital Signs Period Temp Pulse Resp BP Sys/Cope Pulse Ox Last 24 Hr 97.4 F-98 F 81-100 16-20 104-137/47-81 100 GENERAL: The patient is arousable and responsive to auditory stimuli. HEAD: Normal with no signs of trauma. EYES: Pupils reactive to light, extraocular movements intact, sclera anicteric, conjunctiva clear. ENT: Ears normal, nares patent, dry mucous membranes and tongue. NECK: Tracheostomy in place, limited ROM LUNGS: Decreased breath sounds. no accessory muscle use. HEART: Regular rate and rhythm, S1, S2 without murmur, rub or gallop. ABDOMEN: Moderate distention more pronounced on left, tender to deep palpation, hypoactive bowel sounds EXTREMITIES: +1 pitting edema in hands, +1 pitting edema of feet, warm to touch NEUROLOGICAL: can move fingers and toes, follows voices with eyes and head PSYCH: unable to assess SKIN: Warm, dry, significant ecchymosis noted on both hands, bullae healing on bilateral dorsal surfaces Laboratory Results - last 24 hr 11/28/18 11/28/18 11/29/18 15:39 22:21 06:36 WBC RBC Hgb Hct MCV MCH MCHC RDW Plt Count MPV Absolute Neuts (auto) Neutrophils % Lymphocytes % Monocytes % Eosinophils % Basophils % Nucleated RBC % Hypochromia Platelet Estimate Polychromasia Poikilocytosis Anisocytosis Microcytosis Macrocytosis Tear Drop Cells Ovalocytes Sodium Potassium Chloride Carbon Dioxide Anion Gap BUN Creatinine Est GFR (CKD-EPI)AfAm Est GFR (CKD-EPI)NonAf POC Glucometer 47 85 95 Random Glucose Calcium Phosphorus Magnesium Total Bilirubin AST ALT Alkaline Phosphatase Total Protein Albumin 11/29/18 11/29/18 08:00 08:00 WBC 6.7 RBC 2.59 L Hgb 8.0 L Hct 25.1 L MCV 97.1 H MCH 31.0 MCHC 31.9 L RDW 26.6 H Plt Count 89 L D MPV 8.8 Absolute Neuts (auto) 4.6 Neutrophils % 69.2 Lymphocytes % 13.8 Monocytes % 14.4 H Eosinophils % 2.1 Basophils % 0.5 Nucleated RBC % 0 Hypochromia 0 Platelet Estimate Decreased Polychromasia 1+ Poikilocytosis 1+ Anisocytosis 2+ Microcytosis 1+ Macrocytosis 1+ Tear Drop Cells 1+ Ovalocytes 1+ Sodium 142 Potassium 3.6 Chloride 102 Carbon Dioxide 26 Anion Gap 13 BUN 48.5 H Creatinine 4.4 H Est GFR (CKD-EPI)AfAm 12.93 Est GFR (CKD-EPI)NonAf 11.16 POC Glucometer Random Glucose 96 Calcium 8.1 L Phosphorus 5.6 H Magnesium 2.3 Total Bilirubin 1.7 H AST 10 L ALT < 6 L Alkaline Phosphatase 112 Total Protein 5.0 L Albumin 2.2 L Active Medications Generic Name Dose Route Start Last Admin Trade Name Freq PRN Reason Stop Dose Admin Albumin Human 12.5 gm 11/29/18 13:00 Albumin Human 25% IVPB 11/29/18 14:31 Q30M [facility] Amantadine HCl 100 mg 11/15/18 10:00 11/29/18 11:18 Symmetrel Oral Solution - GT 100 mg BID [facility] Administration Amiodarone HCl 200 mg 11/15/18 10:00 11/29/18 11:14 Cordarone - GT 200 mg DAILY [facility] Administration Carbidopa/Levodopa 2 each 11/15/18 06:00 11/29/18 05:04 Sinemet 25/250 - GT 2 each TID [facility] Administration Collagenase 1 applic 11/15/18 10:00 11/28/18 11:58 Santyl - TP 1 applic DAILY [facility] Administration Protocol Dextrose 1,000 mls @ 25 mls/hr 11/28/18 16:00 11/28/18 19:01 D5w - IV 25 mls/hr .[id number] [facility] Administration Sodium Chloride 250 mls @ 3,000 mls/hr 11/29/18 12:51 Normal Saline - IV 11/30/18 12:50 PRN PRN Hypotension during Dialysis Latanoprost 1 drop 11/15/18 22:00 11/28/18 23:09 Xalatan 0.005% Eye Drops - OU 1 drop HS [facility] Administration Metoclopramide HCl 5 mg 11/28/18 22:00 11/29/18 11:18 Reglan Injection - IVPUSH 5 mg BID [facility] Administration Metoprolol Tartrate 75 mg 11/15/18 10:00 11/29/18 11:16 Lopressor - GT 75 mg BID [facility] Administration Metoprolol Tartrate 5 mg 11/14/18 23:17 Lopressor Injection - IVPUSH Q4H PRN [facility] Pantoprazole Sodium 40 mg 11/15/18 10:00 11/29/18 12:57 Protonix Iv IVPUSH 40 mg DAILY [facility] Administration ASSESSMENT/PLAN: Mr. Smalls is an 88yo male with Parkinson's, COPD, CHF, HTN, a-fib on Eliquis, respiratory failure with trach and PEG, hx of prostate cancer who presents for abdominal distention and fevers. He was found to be septic 2/2 pneumonia, as well as SBO, and CBD dilation. UA on 11/10/18 resulted in UTI diagnosis. Creatinine was increasing, but has improved since hemodialysis began on 11/19. 1. [place], on HD 48.5/4.4 -pt received 5th HD -monitor INR -pt typed and crossed -brown urine -Nephro following -CMP 2. SBO vs ileus pt became more distended over the last week, X-ray today cannot confirm or r/o SBO or ileus. CT 11/23/18 showed slightly increased bowel dilation compared to previous exam but no SBO. -repeat KUB tomorrow and consider restarting feeds -rectal tube placed -Surgical recs appreciated -GI consulted -discuss goals of care with family 3. anemia Hb 8.0 with recent hematuria, FOBT positive -transfused 1 unit PRBCs this week -repeat CBC, reassess -heme following 4. hematuria, possibly 2/2 DIC/coagulopathy -urology following -heme following 5. acute on chronic hypoxic respiratory failure s/p trach/vent with sepsis 2/2 PNA CXR week ago showed decrease congestion -Tylenol PRN discomfort -leukocytosis resolved 6.7 -fluids being held, limiting drips -blood cultures negative -sputum culture positive Klebsiella, Pseudomonas, Proteus Mirabilus -CT abd/pelvis 11/05/18 showed mod to large pleural effusion on right, moderate on left -Ceftazidime/Avibactam and Flagyl x 14 days completed -ID following -Pulm following -CBC 6. complicated UTI -galarza in place 7. acute on chronic diastolic CHF -echo EF 65-70%, no LVH, mild RA dilation, moderate TR, moderate AR, no pericardial effusion -fluids successfully removed during previous HD sessions -Lasix has been held -no extra fluids -CMP 8. paroxysmal a-fib HR 100s -metoprolol has been held when pressure is low -INR 1.55 yesterday, Eliquis held -EKG 11/08/18: irregular rhythm, HR 98, QTc 589 -monitor QTc and medications which could increase it 9. thrombocytopenia Plt 59. DIC/coagulopathy -Factors V, VIII, X and XII, mixed PT and PTT LAC studies pending -monitor for signs of bleeding -HIT negative -type and cross done -heme following 10. INR 1.55 -Eliquis held 11. hypoglycemia well-controlled -Reglan -D50w when NPO -SSI 12. transaminitis, Alk Phos Alk Phos 112 -negative FACUNDO, c-ANCA, p-ANCA, DS DNA Ab, GBM Ab, Heparin-induced plt Ab, myeloperoxidase Ab -negative hep B, and hep C, negative hep A IgM -GI following 13. HTN well-controlled, currently on metoprolol -frequent VS checks 14. decubitus ulcer -santyl 15. hemorrhagic bullae -dressing on right hand -derm consulted 16. COPD RR normal on ventilator. 17. Parkinson's -continue home meds when receiving feedings 18. hx of prostate cancer -PSA FEN none monitor lytes tube feedings held DVT Ppe SCDs, Eliquis 2.5mg BID- held GI Ppe Protonix- held Dispo The family, palliative care, and the medicine team last week to discuss goals of care. Long-term HD is being considered currently with possible placement in LTACH. Son is point of contact. DNR Visit type - Emergency Visit Emergency Visit: Yes ED Registration Date: 11/05/18 Care time: The patient presented to the Emergency Department on the above date and was hospitalized for further evaluation of their emergent condition. - New Patient This patient is new to me today: No - Critical Care Critical Care patient: No - Discharge Referral Referred to [facility] No ATTENDING PHYSICIAN STATEMENT I saw and evaluated the patient. I reviewed the resident's note and discussed the case with the resident. I agree with the resident's findings and plan as documented. SUBJECTIVE: OBJECTIVE: ASSESSMENT AND PLAN:
--- NOTE | 2018-11-29 14:24 | PN ---
Progress Note, Physician History of Present Illness: Pt seen and examined at bedside. He is awake. No new events. - Current Medication List Current Medications: Active Medications Albumin Human (Albumin Human 25%) 12.5 gm IVPB Q30M [facility] Stop: 11/29/18 14:31 Amantadine HCl (Symmetrel Oral Solution -) 100 mg GT BID [facility] Last Admin: 11/29/18 11:18 Dose: 100 mg Amiodarone HCl (Cordarone -) 200 mg GT DAILY [facility] Last Admin: 11/29/18 11:14 Dose: 200 mg Carbidopa/Levodopa (Sinemet 25/250 -) 2 each GT TID [facility] Last Admin: 11/29/18 05:04 Dose: 2 each Collagenase (Santyl -) 1 applic TP DAILY [facility]; Protocol Last Admin: 11/28/18 11:58 Dose: 1 applic Dextrose (D5w -) 1,000 mls @ 25 mls/hr IV .[id number] [facility] Last Admin: 11/28/18 19:01 Dose: 25 mls/hr Sodium Chloride (Normal Saline -) 250 mls @ 3,000 mls/hr IV PRN PRN PRN Reason: Hypotension during Dialysis Stop: 11/30/18 12:50 Latanoprost (Xalatan 0.005% Eye Drops -) 1 drop OU HS [facility] Last Admin: 11/28/18 23:09 Dose: 1 drop Metoclopramide HCl (Reglan Injection -) 5 mg IVPUSH BID [facility] Last Admin: 11/29/18 11:18 Dose: 5 mg Metoprolol Tartrate (Lopressor -) 75 mg GT BID [facility] Last Admin: 11/29/18 11:16 Dose: 75 mg Metoprolol Tartrate (Lopressor Injection -) 5 mg IVPUSH Q4H PRN PRN Reason: TACHYCARDIA Pantoprazole Sodium (Protonix Iv) 40 mg IVPUSH DAILY [facility] Last Admin: 11/29/18 12:57 Dose: 40 mg - Objective Vital Signs: Vital Signs Temperature 97.4 F L 11/29/18 05:56 Pulse Rate 85 11/29/18 10:00 Respiratory Rate 16 11/29/18 10:10 Blood Pressure 122/52 L 11/29/18 10:00 O2 Sat by Pulse Oximetry (%) 100 11/28/18 21:00 Constitutional: Yes: Calm Eyes: Yes: Conjunctiva Clear HENT: Yes: Atraumatic Neck: Yes: Other (trache) Cardiovascular: Yes: S1, S2 Gastrointestinal: Yes: Other (peg) Genitourinary: Yes: Salguero Present Musculoskeletal: Yes: Muscle Weakness Edema: Yes Edema: LLE: Trace, RLE: Trace Neurological: Yes: Other (awake) Labs: CBC, BMP 11/29/18 08:00 11/29/18 08:00 INR, PTT INR 1.55 (0.83-1.09) H 11/26/18 06:45 Fibrinogen 415.0 mg/dL (238-498) 11/21/18 14:20 Problem List - Problems (1) [place] (acute kidney injury) Code(s): N17.9 - ACUTE KIDNEY FAILURE, UNSPECIFIED (2) Atrial fibrillation with RVR Code(s): I48.91 - UNSPECIFIED ATRIAL FIBRILLATION (3) Ileus Code(s): K56.7 - ILEUS, UNSPECIFIED (4) Sepsis Code(s): A41.9 - SEPSIS, UNSPECIFIED ORGANISM Qualifiers: Sepsis type: sepsis due to unspecified organism Sepsis acute organ dysfunction status: with acute organ dysfunction Severe sepsis acute organ dysfunction type: acute renal failure Acute renal failure type: unspecified Severe sepsis shock status: without septic shock Qualified Code(s): A41.9 - Sepsis, unspecified organism; R65.20 - Severe sepsis without septic shock; N17.9 - Acute kidney failure, unspecified Assessment/Plan Current Medications Generic Name Dose Route Start Last Admin Trade Name Freq PRN Reason Stop Dose Admin Albumin Human 12.5 gm 11/29/18 13:00 Albumin Human 25% IVPB 11/29/18 14:31 Q30M [facility] Amantadine HCl 100 mg 11/15/18 10:00 11/29/18 11:18 Symmetrel Oral Solution - GT 100 mg BID [facility] Administration Amiodarone HCl 200 mg 11/15/18 10:00 11/29/18 11:14 Cordarone - GT 200 mg DAILY [facility] Administration Carbidopa/Levodopa 2 each 11/15/18 06:00 11/29/18 05:04 Sinemet 25/250 - GT 2 each TID [facility] Administration Collagenase 1 applic 11/15/18 10:00 11/28/18 11:58 Santyl - TP 1 applic DAILY [facility] Administration Protocol Dextrose 1,000 mls @ 25 mls/hr 11/28/18 16:00 11/28/18 19:01 D5w - IV 25 mls/hr .[id number] [facility] Administration Sodium Chloride 250 mls @ 3,000 mls/hr 11/29/18 12:51 Normal Saline - IV 11/30/18 12:50 PRN PRN Hypotension during Dialysis Latanoprost 1 drop 11/15/18 22:00 11/28/18 23:09 Xalatan 0.005% Eye Drops - OU 1 drop HS [facility] Administration Metoclopramide HCl 5 mg 11/28/18 22:00 11/29/18 11:18 Reglan Injection - IVPUSH 5 mg BID [facility] Administration Metoprolol Tartrate 75 mg 11/15/18 10:00 11/29/18 11:16 Lopressor - GT 75 mg BID [facility] Administration Metoprolol Tartrate 5 mg 11/14/18 23:17 Lopressor Injection - IVPUSH Q4H PRN [facility] Pantoprazole Sodium 40 mg 11/15/18 10:00 11/29/18 12:57 Protonix Iv IVPUSH 40 mg DAILY [facility] Administration Impression: 1. [place] 2. sepsis 3. PNA 4. SBO 5. Parkinson's 6. a-fib 7. chronic resp failure 8. severe sepsis 9. lactic acidosis 10. copd 11. hx of htn 12. thrombocytopenia Plan - HD today - monitor urine output - epogen for anemia - spoke to son who is HCP, family are still discussing GOC - will need permacath if they decide to stay on HD
--- NOTE | 2018-11-29 14:32 | PN ---
Progress Note, REGULATORY COMPLIANCE SPECIALIST - Note Progress Note: Medical events noted with TF/distended abdomen Defer PMV at this time.
[2018-11-29] MEDS: ALBUMIN HUMAN 25% 12.5 GM/50 ML VIAL IVPB SCH ×3 (15:41→15:43)
--- NOTE | 2018-11-29 15:45 | PN ---
Teaching Attending Note Name of Resident: Renate Montilla ATTENDING PHYSICIAN STATEMENT I saw and evaluated the patient. I reviewed the resident's note and discussed the case with the resident. I agree with the resident's findings and plan as documented. SUBJECTIVE: Unable to participate in interview, non-verbal, Trach/Vent. No further vomiting. OBJECTIVE: Afebrile, hemodynamically stable. Appears comfortable. Awake/Alert. Last Vital Signs Temp Pulse Resp BP Pulse Ox 98.4 F 102 H 18 120/57 L 100 11/29/18 15:00 11/29/18 15:00 11/29/18 15:00 11/29/18 15:00 11/28/18 21:00 HEENT - s/p Trach to Vent, FiO2 40%. Heart - S1, S2, SM, irregular. Lungs - good air entry bilaterally with bilateral crackles. Abdomen - PEG in situ. Site dressed. No evidence of surrounding cellulitis. Abdomen soft but generally tender +. Rectal tube in place, soft stool. - Salguero in situ, small volume dark colored urine. Extremities - hemorrhagic bullae UEs improving. Edema UEs, Edema+ LEs. Laboratory Results - last 24 hr 11/28/18 11/28/18 11/29/18 15:39 22:21 06:36 WBC RBC Hgb Hct MCV MCH MCHC RDW Plt Count MPV Absolute Neuts (auto) Neutrophils % Lymphocytes % Monocytes % Eosinophils % Basophils % Nucleated RBC % Hypochromia Platelet Estimate Polychromasia Poikilocytosis Anisocytosis Microcytosis Macrocytosis Tear Drop Cells Ovalocytes Sodium Potassium Chloride Carbon Dioxide Anion Gap BUN Creatinine Est GFR (CKD-EPI)AfAm Est GFR (CKD-EPI)NonAf POC Glucometer 47 85 95 Random Glucose Calcium Phosphorus Magnesium Total Bilirubin AST ALT Alkaline Phosphatase Total Protein Albumin 11/29/18 11/29/18 08:00 08:00 WBC 6.7 RBC 2.59 L Hgb 8.0 L Hct 25.1 L MCV 97.1 H MCH 31.0 MCHC 31.9 L RDW 26.6 H Plt Count 89 L D MPV 8.8 Absolute Neuts (auto) 4.6 Neutrophils % 69.2 Lymphocytes % 13.8 Monocytes % 14.4 H Eosinophils % 2.1 Basophils % 0.5 Nucleated RBC % 0 Hypochromia 0 Platelet Estimate Decreased Polychromasia 1+ Poikilocytosis 1+ Anisocytosis 2+ Microcytosis 1+ Macrocytosis 1+ Tear Drop Cells 1+ Ovalocytes 1+ Sodium 142 Potassium 3.6 Chloride 102 Carbon Dioxide 26 Anion Gap 13 BUN 48.5 H Creatinine 4.4 H Est GFR (CKD-EPI)AfAm 12.93 Est GFR (CKD-EPI)NonAf 11.16 POC Glucometer Random Glucose 96 Calcium 8.1 L Phosphorus 5.6 H Magnesium 2.3 Total Bilirubin 1.7 H AST 10 L ALT < 6 L Alkaline Phosphatase 112 Total Protein 5.0 L Albumin 2.2 L Current Medications Generic Name Dose Route Start Last Admin Trade Name Freq PRN Reason Stop Dose Admin Amantadine HCl 100 mg 11/15/18 10:00 11/29/18 11:18 Symmetrel Oral Solution - GT 100 mg BID LUCRECIA Administration Amiodarone HCl 200 mg 11/15/18 10:00 11/29/18 11:14 Cordarone - GT 200 mg DAILY LUCRECIA Administration Carbidopa/Levodopa 2 each 11/15/18 06:00 11/29/18 14:00 Sinemet 25/250 - GT Not Given TID LUCRECIA Collagenase 1 applic 11/15/18 10:00 11/28/18 11:58 Santyl - TP 1 applic DAILY LUCRECIA Administration Protocol Dextrose 1,000 mls @ 25 mls/hr 11/28/18 16:00 11/28/18 19:01 D5w - IV 25 mls/hr .[id number] LUCRECIA Administration Sodium Chloride 250 mls @ 3,000 mls/hr 11/29/18 12:51 Normal Saline - IV 11/30/18 12:50 PRN PRN Hypotension during Dialysis Latanoprost 1 drop 11/15/18 22:00 11/28/18 23:09 Xalatan 0.005% Eye Drops - OU 1 drop HS LUCRECIA Administration Metoclopramide HCl 5 mg 11/28/18 22:00 11/29/18 11:18 Reglan Injection - IVPUSH 5 mg BID LUCRECIA Administration Metoprolol Tartrate 75 mg 11/15/18 10:00 11/29/18 11:16 Lopressor - GT 75 mg BID LUCRECIA Administration Metoprolol Tartrate 5 mg 11/14/18 23:17 Lopressor Injection - IVPUSH Q4H PRN TACHYCARDIA Pantoprazole Sodium 40 mg 11/15/18 10:00 11/29/18 12:57 Protonix Iv IVPUSH 40 mg DAILY LUCRECIA Administration Home Medications Medication Instructions Recorded Acetaminophen [Tylenol] 650 mg GT QID PRN 11/05/18 Albuterol 2.5/Ipratropium 0.5 1 neb IH QID 11/05/18 [Duoneb -] Amantadine Oral Solution 100 mg GT BID 11/05/18 [Symmetrel Oral Solution -] Amiodarone HCl [Cordarone -] 200 mg GT DAILY 11/05/18 Apixaban [Eliquis -] 5 mg GT BID 11/05/18 Ascorbic Acid 500 mg GT DAILY 11/05/18 Carbidopa/Levodopa 25/250 [Sinemet 2 each PO TID 11/05/18 25/250 -] Docusate Liquid [Colace Liquid -] 100 mg GT DAILY 11/05/18 Famotidine 20 mg GT DAILY 11/05/18 Furosemide [Lasix -] 40 mg GT DAILY 11/05/18 Homatropine HBr 5% Ophth Soln 1 drop OD QID 11/05/18 [Isopto Homatropine] Latanoprost 0.005% Eye Drops 1 drop OU HS 11/05/18 [Xalatan 0.005% Eye Drops -] Metoprolol Tartrate [Lopressor -] 50 mg GT BID 11/05/18 Multivitamin [Multiple Vitamins] 15 ml GT DAILY 11/05/18 Polyethylene Glycol 3350 [Miralax 17 gm GT DAILY 11/05/18 (For Bowel Prep) -] Tobramycin/Dexamethasone [Tobradex 1 drop OU BID 11/05/18 Eye Drops] Zinc Sulfate [Zinc-220] 220 mg GT DAILY 11/05/18 ASSESSMENT AND PLAN: 88 year old male with Parkinson's Disease, COPD, HTN, Atrial Fibrillation, CRF s /p Trach (Vent dependent)/PEG, presented with fevers/chills, abdominal pain/ distension, initially admitted to ICU with SBO and sepsis secondary to Pneumonia. 1. Acute on Chronic Respiratory Failure and Severe Sepsis secondary to Pneumonia. s/p tracheostomy, vent dependent. Sputum Cx positive for Pseudomonas - completed 14 days Ceftazidime. Afebrile, hemodynamicaly stable. Sepsis resolved. ID/Pulm following. 2. [place] with fluid overload, sec to Sepsis/ATN vs Contrast Nephropathy - initiated on HD/Ultrafiltration via femoral Cath - s/p femoral catheter exchange 11/[address] shows some ongoing bilateral pleural effusions. For HD today. Family to decide re: GOC and further HD. If decision for long- term HD is made, he will need Permacath. 3. SBO - recurrent. Appears to be reslving. Started on Reglan as per GI recommendations. Resume feeds and up-titrate slowly. 4. Hematuria - likely sec to [place]/thrombocytopenia. Salguero in situ with low vol bloody urine. s/p 1 unit PRBCs. 5. Anemia - multifactorial - sec to renal failure/sepsis/acute blood loss (sec to Hematuria) - H.H 8.0/25.1 s/p 1 unit PRBCs. Epogen as per nephrology. Will monitor H/H. 6. Coagulopathy - Elevated PT/PTT - s/p Vitamin K. Hematology following. For further investigation/management as per Hematology. 7. Thrombocytopenia - etiology unclear - improving - HIT work-up negative. Due to ?Amio ?Abx. Hematology following. Will monitor. 8. Elevated LFTs - secondary to sepsis/shock liver. Transaminases normalized. GI following. 9. Atrial fibrillation with RVR - resumed on Metoprolol (at increased dose of 75mg BID) and Amiodarone. Started on Eliquis (now held due to elevated INR and Thrombocytopenia). 10. Hemorrhagic Bullae - noted on hands. Improving, will monitor. 11. Elevated Troponin - sec to demand due to sepsis. TnI max 0.07. No further work-up currently. Can follow with cardiology as out-patient. 12. Parkinson's Disease - Continue Sinemet/Amantadine. 13. HTN - BP borderline. Resumed on Metoprolol. 14. Dysphagia s/p PEG - Enteral feeds via PEG held due to concern for ileus vs SBO. Repeat AXR shows some resolution - will resume feeds slowly with reglan BID 3 day trial. 15, Hypoglycemia - required D 50 11/27. Feeds resumed. Will monitor. DVT Px - Eliquis held. SCDs. GI Px - PPI
[2018-11-29] MEDS: COLLAGENASE CLOSTRIDIUM HIST. 30 GRAMS TUBE TP SCH (18:32)
[2018-11-29] MEDS ORDERED: DEXTROSE 5%-WATER - 1,000 ML IV ONE (19:30)
[2018-11-29] MEDS: LATANOPROST 0.005% OPHTH SOLN 2.5ML BOTTLE OU SCH (21:31)
[2018-11-30] MEDS: CARBIDOPA/LEVODOPA 25/250 TABLET (FP) GT SCH ×3 (05:09→23:35)
[2018-11-30 07:57] LABS: BASO % 0.2 % (0-2.0); EOS % 0.4 % (0-4.5); HEMATOCRIT 26.8 % (35.4-49); HEMOGLOBIN 8.5 GM/dL (11.7-16.9); LYMPH % 13.8 % (8-40); MCHC 31.9 g/dl (32.0-35.9); MEAN CELL VOLUME 97.1 fl (80-96); NEUT % 72.6 % (42.8-82.8); PLATELET COUNT 93 K/MM3 (134-434); RBC 2.76 M/mm3 (4.00-5.60); RDW 26.1 % (11.9-15.9); WHITE BLOOD COUNT 8.3 K/mm3 (4.0-10.0)
[2018-11-30 08:26] LABS: ALBUMIN 2.2 g/dl (3.4-5.0); ALK PHOS 118 U/L (45-117); ANION GAP 20 MMOL/L (8-16); CALCIUM 8.1 mg/dL (8.5-10.1); CHLORIDE 100 mmol/L (98-107); CO2 21 mmol/L (21-32); CREATININE 4.8 mg/dL (0.55-1.3); GLUCOSE,RANDOM 95 mg/dL (74-106); SGOT/AST 12 U/L (15-37); SGPT/ALT < 6 U/L (13-61); SODIUM 141 mmol/L (136-145); TOT PROT 5.5 g/dl (6.4-8.2)
[2018-11-30] MEDS ORDERED: PT OWN MED DRAWER 7, Y5N ONE (11:19)
[2018-11-30] MEDS: AMIODARONE HCL 200 MG TABLET (FP) GT SCH (11:33)
[2018-11-30] MEDS: PANTOPRAZOLE SODIUM 40 MG VIAL IVPUSH SCH (11:33)
[2018-11-30] MEDS: AMANTADINE HCL 100MG/10 ML UNIT DOSE CUPS GT SCH ×2 (11:35→23:37)
[2018-11-30] MEDS: METOCLOPRAMIDE HCL INJECTION 10 MG/2 ML VIAL IVPUSH SCH ×2 (11:35→23:35)
[2018-11-30] MEDS: COLLAGENASE CLOSTRIDIUM HIST. 30 GRAMS TUBE TP SCH (11:37)
[2018-11-30] MEDS: METOPROLOL TARTRATE 25 MG TABLET (FP) GT SCH ×2 (11:38→23:35)
--- NOTE | 2018-11-30 12:05 | PN ---
Progress Note, Physician History of Present Illness: pulmonary awake on vent support ac mode,comfortable - Current Medication List Current Medications: Active Medications Amantadine HCl (Symmetrel Oral Solution -) 100 mg GT BID [facility] Last Admin: 11/30/18 11:35 Dose: 100 mg Amiodarone HCl (Cordarone -) 200 mg GT DAILY [facility] Last Admin: 11/30/18 11:33 Dose: 200 mg Carbidopa/Levodopa (Sinemet 25/250 -) 2 each GT TID [facility] Last Admin: 11/30/18 05:09 Dose: 2 each Collagenase (Santyl -) 1 applic TP DAILY [facility]; Protocol Last Admin: 11/30/18 11:37 Dose: 1 applic Sodium Chloride (Normal Saline -) 250 mls @ 3,000 mls/hr IV PRN PRN PRN Reason: Hypotension during Dialysis Stop: 11/30/18 12:50 Dextrose (D5w -) 1,000 mls @ 25 mls/hr IV ONCE ONE Stop: 12/01/18 11:29 Last Admin: 11/29/18 19:55 Dose: 25 mls/hr Latanoprost (Xalatan 0.005% Eye Drops -) 1 drop OU HS [facility] Last Admin: 11/29/18 21:31 Dose: 1 drop Metoclopramide HCl (Reglan Injection -) 5 mg IVPUSH BID [facility] Last Admin: 11/30/18 11:35 Dose: 5 mg Metoprolol Tartrate (Lopressor -) 75 mg GT BID [facility] Last Admin: 11/30/18 11:38 Dose: 75 mg Metoprolol Tartrate (Lopressor Injection -) 5 mg IVPUSH Q4H PRN PRN Reason: TACHYCARDIA Pantoprazole Sodium (Protonix Iv) 40 mg IVPUSH DAILY [facility] Last Admin: 11/30/18 11:33 Dose: 40 mg - Objective Vital Signs: Vital Signs Temperature 96.9 F L 11/30/18 04:00 Pulse Rate 72 11/30/18 04:00 Respiratory Rate 19 11/30/18 08:31 Blood Pressure 90/61 11/30/18 04:00 O2 Sat by Pulse Oximetry (%) 97 11/29/18 21:00 Constitutional: Yes: Well Nourished, Calm Eyes: Yes: WNL HENT: Yes: WNL Neck: Yes: Supple (trach) Cardiovascular: Yes: Pulse Irregular, S1, S2 Respiratory: Yes: Rhonchi (few rhonchi) Gastrointestinal: Yes: Normal Bowel Sounds, Soft Extremities: Yes: WNL Edema: No Labs: CBC, BMP 11/30/18 07:27 11/30/18 07:27 INR, PTT INR 1.55 (0.83-1.09) H 11/26/18 06:45 Fibrinogen 415.0 mg/dL (238-498) 11/21/18 14:20 Problem List - Problems (1) Atrial fibrillation with RVR Code(s): I48.91 - UNSPECIFIED ATRIAL FIBRILLATION (2) Chronic respiratory failure Code(s): J96.10 - CHRONIC RESPIRATORY FAILURE, UNSP W HYPOXIA OR HYPERCAPNIA (3) Sepsis Code(s): A41.9 - SEPSIS, UNSPECIFIED ORGANISM Qualifiers: Sepsis type: sepsis due to unspecified organism Sepsis acute organ dysfunction status: with acute organ dysfunction Severe sepsis acute organ dysfunction type: acute renal failure Acute renal failure type: unspecified Severe sepsis shock status: without septic shock Qualified Code(s): A41.9 - Sepsis, unspecified organism; R65.20 - Severe sepsis without septic shock; N17.9 - Acute kidney failure, unspecified (4) Parkinson disease Code(s): G20 - PARKINSON'S DISEASE (5) Pneumonitis Code(s): J18.9 - PNEUMONIA, UNSPECIFIED ORGANISM Assessment/Plan ASSESSMENT AND PLAN: Chronic Respiratory Failure Pneumonia Severe Sepsis Acute Kidney Injury Lactic Acidosis +Troponins likely Demand Ischemia Atrial Fibrillation COPD HTN Parkinsons Disease - HD as per renal - rate control - enteral feeds - DVT/GI prophylaxis - continue discussions regarding goals of care - chest x-ray today DR ARELLANO
--- NOTE | 2018-11-30 12:10 | PN ---
Physical Exam: SUBJECTIVE: Patient seen and examined OBJECTIVE: Vital Signs Period Temp Pulse Resp BP Sys/Cope Pulse Ox Last 24 Hr 96.9 F-98.4 F 38-102 14-26 85-180/51-129 97-97 GENERAL: The patient is awake, alert, and fully oriented, in no acute distress. HEAD: Normal with no signs of trauma. EYES: PERRL, extraocular movements intact, sclera anicteric, conjunctiva clear. No ptosis. ENT: Ears normal, nares patent, oropharynx clear without exudates, moist mucous membranes. NECK: Trachea midline, full range of motion, supple. LUNGS: Breath sounds equal, clear to auscultation bilaterally, no wheezes, no crackles, no accessory muscle use. HEART: Regular rate and rhythm, S1, S2 without murmur, rub or gallop. ABDOMEN: Soft, nontender, nondistended, normoactive bowel sounds, no guarding, no rebound, no hepatosplenomegaly, no masses. EXTREMITIES: 2+ pulses, warm, well-perfused, no edema. NEUROLOGICAL: Cranial nerves II through XII grossly intact. Normal speech, gait not observed. PSYCH: Normal mood, normal affect. SKIN: Warm, dry, normal turgor, no rashes or lesions noted Laboratory Results - last 24 hr 11/29/18 11/29/18 11/30/18 18:11 23:10 04:45 WBC RBC Hgb Hct MCV MCH MCHC RDW Plt Count MPV Absolute Neuts (auto) Neutrophils % Lymphocytes % Monocytes % Eosinophils % Basophils % Nucleated RBC % Sodium Potassium Chloride Carbon Dioxide Anion Gap BUN Creatinine Est GFR (CKD-EPI)AfAm Est GFR (CKD-EPI)NonAf POC Glucometer 80 116 89 Random Glucose Calcium Total Bilirubin AST ALT Alkaline Phosphatase Total Protein Albumin 11/30/18 11/30/18 11/30/18 07:27 07:27 11:53 WBC 8.3 RBC 2.76 L Hgb 8.5 L Hct 26.8 L MCV 97.1 H MCH 31.0 MCHC 31.9 L RDW 26.1 H Plt Count 93 L MPV 9.0 Absolute Neuts (auto) 6.0 Neutrophils % 72.6 Lymphocytes % 13.8 Monocytes % 13.0 H Eosinophils % 0.4 D Basophils % 0.2 Nucleated RBC % 0 Sodium 141 Potassium 4.0 Chloride 100 Carbon Dioxide 21 Anion Gap 20 H BUN 51.0 H Creatinine 4.8 H Est GFR (CKD-EPI)AfAm 11.64 Est GFR (CKD-EPI)NonAf 10.04 POC Glucometer 97 Random Glucose 95 Calcium 8.1 L Total Bilirubin 2.0 H AST 12 L ALT < 6 L Alkaline Phosphatase 118 H Total Protein 5.5 L Albumin 2.2 L Active Medications Generic Name Dose Route Start Last Admin Trade Name Freq PRN Reason Stop Dose Admin Amantadine HCl 100 mg 11/15/18 10:00 11/30/18 11:35 Symmetrel Oral Solution - GT 100 mg BID LUCRECIA Administration Amiodarone HCl 200 mg 11/15/18 10:00 11/30/18 11:33 Cordarone - GT 200 mg DAILY LUCRECIA Administration Carbidopa/Levodopa 2 each 11/15/18 06:00 11/30/18 05:09 Sinemet 25/250 - GT 2 each TID LUCRECIA Administration Collagenase 1 applic 11/15/18 10:00 11/30/18 11:37 Santyl - TP 1 applic DAILY LUCRECIA Administration Protocol Sodium Chloride 250 mls @ 3,000 mls/hr 11/29/18 12:51 Normal Saline - IV 11/30/18 12:50 PRN PRN Hypotension during Dialysis Dextrose 1,000 mls @ 25 mls/hr 11/29/18 19:30 11/29/18 19:55 D5w - IV 12/01/18 11:29 25 mls/hr ONCE ONE Administration Latanoprost 1 drop 11/15/18 22:00 11/29/18 21:31 Xalatan 0.005% Eye Drops - OU 1 drop HS LUCRECIA Administration Metoclopramide HCl 5 mg 11/28/18 22:00 11/30/18 11:35 Reglan Injection - IVPUSH 5 mg BID LUCRECIA Administration Metoprolol Tartrate 75 mg 11/15/18 10:00 11/30/18 11:38 Lopressor - GT 75 mg BID LUCRECIA Administration Metoprolol Tartrate 5 mg 11/14/18 23:17 Lopressor Injection - IVPUSH Q4H PRN TACHYCARDIA Pantoprazole Sodium 40 mg 11/15/18 10:00 11/30/18 11:33 Protonix Iv IVPUSH 40 mg DAILY LUCRECIA Administration ASSESSMENT/PLAN: Mr. Gouchev is an 88yo male with Parkinson's, COPD, CHF, HTN, a-fib on Eliquis, respiratory failure with trach and PEG, hx of prostate cancer who presents for abdominal distention and fevers. He was found to be septic 2/2 pneumonia, as well as SBO, and CBD dilation. UA on 11/10/18 resulted in UTI diagnosis. Creatinine was increasing, but has improved since hemodialysis began on 11/19. 1. [place], on HD 4.8/51.0 -pt received 5th HD -monitor INR -pt typed and crossed -brown urine -Nephro following -CMP 2. SBO vs ileus pt became more distended over the last week, X-ray today cannot confirm or r/o SBO or ileus. CT 11/23/18 showed slightly increased bowel dilation compared to previous exam but no SBO. -repeat KUB tomorrow and consider restarting feeds -rectal tube placed -Surgical recs appreciated -GI consulted -discuss goals of care with family 3. anemia Hb 7.8 with recent hematuria, FOBT positive -transfused 1 unit PRBCs this week -repeat CBC, reassess -heme following 4. hematuria, possibly 2/2 DIC/coagulopathy -urology following -heme following 5. acute on chronic hypoxic respiratory failure s/p trach/vent with sepsis 2/2 PNA CXR week ago showed decrease congestion -Tylenol PRN discomfort -leukocytosis resolved 7.0 -fluids being held, limiting drips -blood cultures negative -sputum culture positive Klebsiella, Pseudomonas, Proteus Mirabilus -CT abd/pelvis 11/05/18 showed mod to large pleural effusion on right, moderate on left -Ceftazidime/Avibactam and Flagyl x 14 days completed -ID following -Pulm following -CBC 6. complicated UTI -galarza in place 7. acute on chronic diastolic CHF -echo EF 65-70%, no LVH, mild RA dilation, moderate TR, moderate AR, no pericardial effusion -fluids successfully removed during previous HD sessions -Lasix has been held -no extra fluids -CMP 8. paroxysmal a-fib HR 100s -metoprolol has been held when pressure is low -INR 1.55 yesterday, Eliquis held -EKG 11/08/18: irregular rhythm, HR 98, QTc 589 -monitor QTc and medications which could increase it 9. thrombocytopenia Plt 89. DIC/coagulopathy -Factors V, VIII, X and XII, mixed PT and PTT LAC studies pending -monitor for signs of bleeding -HIT negative -type and cross done -heme following 10. INR 1.55 -Eliquis held 11. hypoglycemia well-controlled -feedings stopped after vomiting x 2 in the last day; will restart feeds tomorrow and titrate up -SSI 12. transaminitis, Alk Phos AST 16, ALT <6, Alk Phos 124 -negative FACUNDO, c-ANCA, p-ANCA, DS DNA Ab, GBM Ab, Heparin-induced plt Ab, myeloperoxidase Ab -negative hep B, and hep C, negative hep A IgM -GI following 13. HTN well-controlled, currently on metoprolol -frequent VS checks 14. decubitus ulcer -santyl 15. hemorrhagic bullae -dressing on right hand -derm consulted 16. COPD RR normal on ventilator. 17. Parkinson's -continue home meds when receiving feedings 18. hx of prostate cancer -PSA FEN none monitor lytes tube feedings held DVT Ppe SCDs, Eliquis 2.5mg BID- held GI Ppe Protonix- held ATTENDING PHYSICIAN STATEMENT I saw and evaluated the patient. I reviewed the resident's note and discussed the case with the resident. I agree with the resident's findings and plan as documented. SUBJECTIVE: OBJECTIVE: ASSESSMENT AND PLAN:
--- NOTE | 2018-11-30 14:51 | PN ---
Teaching Attending Note Name of Resident: Renate Montilla ATTENDING PHYSICIAN STATEMENT I saw and evaluated the patient. I reviewed the resident's note and discussed the case with the resident. I agree with the resident's findings and plan as documented. SUBJECTIVE:resting comfortable OBJECTIVE: Last Vital Signs Temp Pulse Resp BP Pulse Ox 98.4 F 80 23 H 110/52 L 97 11/30/18 10:00 11/30/18 10:00 11/30/18 12:19 11/30/18 10:00 11/29/18 21:00 Intake & Output 11/27/18 11/28/18 11/29/18 11/30/18 23:59 23:59 23:59 23:59 Intake Total 534 482 0725 150 Output Total 2700 50 2825 0 Balance -2400 150 -1175 150 General resting comfortable CV S1 s2 tachy lungs decreased breath sounds anteriorly. no wheezing abdomen soft +distended. NT. +tympanic +PEG Extremities 2+ pitting edema B/L UE trace pitting edema B/L LE sacral unstageable sacral ulcer ASSESSMENT AND PLAN: 88 year old male with Parkinson's Disease, COPD, HTN, Atrial Fibrillation, CRF s /p Trach/PEG, presented with fevers/chills, abdominal pain/distension, found to have SBO and sepsis secondary to Pneumonia. 1. Acute on Chronic Respiratory Failure and Severe Sepsis secondary to Pneumonia. s/p trach. vent dependent. +pseudomonas. completed abx course. ID and pulmonary on board 2. [place] due to sepsis/ATN vs contrast induced nephropathy- has been receiveing HD but unable to complete yesterday because shiley was clogged and unable to correct. will need to have family discussion to determine if they are going to continue as may need permacath placed if family is interested. nephro on board 3. Dark Urine-due to thrombocytopenia. now clear. urology consult. 4. SBO- appears have ileus due to chronic illness. feeds have been on hold will confirm that there is no plan for intervention and will re-start. add reglan. GI on board. 5. Volume overload-cont HD as tolerated 6. anemia- likely combination of chronic disease. received 1 unit PRBC. trend 7. Elevated INR- unknown cause. vit K x3 given. HIT panel pending. holding heparin and eliquis. heme on board 8. Dilated CBD/Elevated LFT- possibly due to sepsis and shock liver. LFT improving. GI on board 9. Atrial fibrillation with RVR - resumed on Metoprolol (at increased dose of 75mg BID) and Amiodarone. Transitioned from Heparin drip to Eliquis (now held due to elevated INR and Thrombocytopenia). 10. hemorrhagic bullae- noted on hands are improving. derm consulted 11. Elevated troponin - sec to demand due to sepsis. TnI max 0.07. No further work-up currently. Can follow with cardiology as out-patient. 12. Parkinson's Disease - Continue Sinemet/Amantadine. 13. HTN - BP borderline. Resumed on Metoprolol. 14. Dysphagia s/p PEG 15, Thrombocytopenia- no signs of bleeding. Hematology on board 16. unstageable sacral ulcer 17. DVT Px - Eliquis held. SCD 18. DNR. poor prognosis. palliative care. Awaiting for family decide goals of care as there was discussion last week of stopping HD. was approved for LTACH, will need to see if family is agreeable or interesting in palliative care
--- NOTE | 2018-11-30 15:43 | PN.GI ---
GI Progress Note Subjective: No vomiting, however, tube feeds not restarted as of yet. May be going for dialysis access today - Objective Vital Signs: Vital Signs Temperature 98.4 F 11/30/18 10:00 Pulse Rate 80 11/30/18 10:00 Respiratory Rate 23 H 11/30/18 12:19 Blood Pressure 110/52 L 11/30/18 10:00 O2 Sat by Pulse Oximetry (%) 97 11/29/18 21:00 Constitutional: Calm Eyes: No: Sclera Icterus Cardiovascular: Yes: Regular Rate and Rhythm Respiratory: Yes: Diminished (at bases bilaterally, poor insp. effort) Gastrointestinal Inspection: No: Distention ...Auscultate: Yes: Normoactive Bowel Sounds ...Palpate: Yes: Soft. No: Tenderness (No grimacing upon palpation) ...Percussion: No: Tympanitic Neurological: Yes: Other (Awake) Labs: CBC, BMP 11/30/18 07:27 11/30/18 07:27 INR, PTT INR 1.55 (0.83-1.09) H 11/26/18 06:45 Fibrinogen 415.0 mg/dL (238-498) 11/21/18 14:20 Problem List - Problems (1) Ileus Assessment/Plan: No vomiting, abdomen soft, + BM's Awaitig reintiation of tube feeds. Held for possible procedure Trial of low dose reglan Code(s): K56.7 - ILEUS, UNSPECIFIED
--- NOTE | 2018-11-30 15:52 | PN ---
Progress Note, Physician History of Present Illness: Pt seen and examined at bedside. He is awake. Volume status is improved. - Current Medication List Current Medications: Active Medications Amantadine HCl (Symmetrel Oral Solution -) 100 mg GT BID [facility] Last Admin: 11/30/18 11:35 Dose: 100 mg Amiodarone HCl (Cordarone -) 200 mg GT DAILY [facility] Last Admin: 11/30/18 11:33 Dose: 200 mg Carbidopa/Levodopa (Sinemet 25/250 -) 2 each GT TID [facility] Last Admin: 11/30/18 15:22 Dose: 2 each Collagenase (Santyl -) 1 applic TP DAILY [facility]; Protocol Last Admin: 11/30/18 11:37 Dose: 1 applic Dextrose (D5w -) 1,000 mls @ 25 mls/hr IV ONCE ONE Stop: 12/01/18 11:29 Last Admin: 11/29/18 19:55 Dose: 25 mls/hr Latanoprost (Xalatan 0.005% Eye Drops -) 1 drop OU HS [facility] Last Admin: 11/29/18 21:31 Dose: 1 drop Metoclopramide HCl (Reglan Injection -) 5 mg IVPUSH BID [facility] Last Admin: 11/30/18 11:35 Dose: 5 mg Metoprolol Tartrate (Lopressor -) 75 mg GT BID [facility] Last Admin: 11/30/18 11:38 Dose: 75 mg Metoprolol Tartrate (Lopressor Injection -) 5 mg IVPUSH Q4H PRN PRN Reason: TACHYCARDIA Pantoprazole Sodium (Protonix Iv) 40 mg IVPUSH DAILY [facility] Last Admin: 11/30/18 11:33 Dose: 40 mg - Objective Vital Signs: Vital Signs Temperature 98.4 F 11/30/18 10:00 Pulse Rate 80 11/30/18 10:00 Respiratory Rate 23 H 11/30/18 12:19 Blood Pressure 110/52 L 11/30/18 10:00 O2 Sat by Pulse Oximetry (%) 97 11/29/18 21:00 Constitutional: Yes: Calm Eyes: Yes: Conjunctiva Clear Neck: Yes: Other (trache) Cardiovascular: Yes: S1, S2 Respiratory: Yes: Intubated, Mechanically Ventilated Gastrointestinal: Yes: Soft, Other (peg) Genitourinary: Yes: Salguero Present, Hematuria, Oliguria Musculoskeletal: Yes: Muscle Weakness Edema: LLE: Trace, RLE: Trace Neurological: Yes: Other (awake) Labs: CBC, BMP 11/30/18 07:27 11/30/18 07:27 INR, PTT INR 1.55 (0.83-1.09) H 11/26/18 06:45 Fibrinogen 415.0 mg/dL (238-498) 11/21/18 14:20 Problem List - Problems (1) [place] (acute kidney injury) Code(s): N17.9 - ACUTE KIDNEY FAILURE, UNSPECIFIED (2) Atrial fibrillation with RVR Code(s): I48.91 - UNSPECIFIED ATRIAL FIBRILLATION (3) Ileus Code(s): K56.7 - ILEUS, UNSPECIFIED (4) Sepsis Code(s): A41.9 - SEPSIS, UNSPECIFIED ORGANISM Qualifiers: Sepsis type: sepsis due to unspecified organism Sepsis acute organ dysfunction status: with acute organ dysfunction Severe sepsis acute organ dysfunction type: acute renal failure Acute renal failure type: unspecified Severe sepsis shock status: without septic shock Qualified Code(s): A41.9 - Sepsis, unspecified organism; R65.20 - Severe sepsis without septic shock; N17.9 - Acute kidney failure, unspecified Assessment/Plan Current Medications Generic Name Dose Route Start Last Admin Trade Name Freq PRN Reason Stop Dose Admin Amantadine HCl 100 mg 11/15/18 10:00 11/30/18 11:35 Symmetrel Oral Solution - GT 100 mg BID [facility] Administration Amiodarone HCl 200 mg 11/15/18 10:00 11/30/18 11:33 Cordarone - GT 200 mg DAILY [facility] Administration Carbidopa/Levodopa 2 each 11/15/18 06:00 11/30/18 15:22 Sinemet 25/250 - GT 2 each TID [facility] Administration Collagenase 1 applic 11/15/18 10:00 11/30/18 11:37 Santyl - TP 1 applic DAILY [facility] Administration Protocol Dextrose 1,000 mls @ 25 mls/hr 11/29/18 19:30 11/29/18 19:55 D5w - IV 12/01/18 11:29 25 mls/hr ONCE ONE Administration Latanoprost 1 drop 11/15/18 22:00 11/29/18 21:31 Xalatan 0.005% Eye Drops - OU 1 drop HS [facility] Administration Metoclopramide HCl 5 mg 11/28/18 22:00 11/30/18 11:35 Reglan Injection - IVPUSH 5 mg BID [facility] Administration Metoprolol Tartrate 75 mg 11/15/18 10:00 11/30/18 11:38 Lopressor - GT 75 mg BID [facility] Administration Metoprolol Tartrate 5 mg 11/14/18 23:17 Lopressor Injection - IVPUSH Q4H PRN TACHYCARDIA Pantoprazole Sodium 40 mg 11/15/18 10:00 11/30/18 11:33 Protonix Iv IVPUSH 40 mg DAILY [facility] Administration Impression: 1. [place] 2. sepsis 3. PNA 4. SBO 5. Parkinson's 6. a-fib 7. chronic resp failure 8. severe sepsis 9. lactic acidosis 10. copd 11. hx of htn 12. thrombocytopenia Plan - pt did not get a complete HD yesterday - volume status is improved - urine outout is poor - family agree to permacath, called vascular - epogen for anemia
--- NOTE | 2018-11-30 16:25 | PN ---
Progress Note (short form) - Note Progress Note: VAscular Surgery Pt needs PC . CAn do axel late afternoon. NPO past midnight. Ramiro Zhang DO
[2018-11-30] MEDS: LATANOPROST 0.005% OPHTH SOLN 2.5ML BOTTLE OU SCH (23:37)
[2018-12-01] MEDS: CARBIDOPA/LEVODOPA 25/250 TABLET (FP) GT SCH ×3 (06:18→23:47)
[2018-12-01 07:29] LABS: BASO % 0.2 % (0-2.0); EOS % 0.7 % (0-4.5); HEMATOCRIT 26.8 % (35.4-49); HEMOGLOBIN 8.4 GM/dL (11.7-16.9); MCH 30.7 pg (25.7-33.7); MCHC 31.5 g/dl (32.0-35.9); MEAN CELL VOLUME 97.6 fl (80-96); MEAN PLT VOLUME 8.9 fl (7.5-11.1); MONO % 11.8 % (3.8-10.2); NEUT % 72.3 % (42.8-82.8); PLATELET COUNT 110 K/MM3 (134-434); RBC 2.74 M/mm3 (4.00-5.60); RDW 25.5 % (11.9-15.9); WHITE BLOOD COUNT 11.2 K/mm3 (4.0-10.0)
[2018-12-01 07:41] LABS: ALBUMIN 2.1 g/dl (3.4-5.0); ALK PHOS 113 U/L (45-117); ANION GAP 16 MMOL/L (8-16); BILIRUBIN,TOTAL 1.9 mg/dL (0.2-1); BLOOD UREA NITROGEN 54.7 mg/dL (7-18); CALCIUM 8.2 mg/dL (8.5-10.1); CHLORIDE 100 mmol/L (98-107); CO2 22 mmol/L (21-32); CREATININE 5.1 mg/dL (0.55-1.3); GLUCOSE,RANDOM 97 mg/dL (74-106); SGOT/AST 11 U/L (15-37); SGPT/ALT < 6 U/L (13-61); SODIUM 138 mmol/L (136-145); TOT PROT 5.2 g/dl (6.4-8.2)
--- NOTE | 2018-12-01 07:49 | SPA.PREOP ---
- PRE-OP NOTE Dx: Renal failure Planned Procedure: Permacath placement Surgeon: Ramiro Zhang, Last Vital Signs Temp Pulse Resp BP Pulse Ox 97.4 F L 84 24 H 100/54 L 98 12/01/18 01:52 12/01/18 06:48 12/01/18 06:15 12/01/18 01:52 12/01/18 06:48 Lab Results WBC 11.2 K/mm3 (4.0-10.0) H 12/01/18 06:38 RBC 2.74 M/mm3 (4.00-5.60) L 12/01/18 06:38 Hgb 8.4 GM/dL (11.7-16.9) L 12/01/18 06:38 Hct 26.8 % (35.4-49) L 12/01/18 06:38 MCV 97.6 fl (80-96) H 12/01/18 06:38 MCHC 31.5 g/dl (32.0-35.9) L 12/01/18 06:38 RDW 25.5 % (11.9-15.9) H 12/01/18 06:38 Plt Count 110 K/MM3 (134-434) L 12/01/18 06:38 Sodium 138 mmol/L (136-145) 12/01/18 06:38 Potassium 4.0 mmol/L (3.5-5.1) 12/01/18 06:38 Chloride 100 mmol/L (98-107) 12/01/18 06:38 Carbon Dioxide 22 mmol/L (21-32) 12/01/18 06:38 Anion Gap 16 MMOL/L (8-16) 12/01/18 06:38 BUN 54.7 mg/dL (7-18) H 12/01/18 06:38 Creatinine 5.1 mg/dL (0.55-1.3) H 12/01/18 06:38 Random Glucose 97 mg/dL (74-106) 12/01/18 06:38 Calcium 8.2 mg/dL (8.5-10.1) L 12/01/18 06:38 Blood Type O POSITIVE 11/22/18 12:00 Antibody Screen Negative 11/22/18 12:00 INR 1.55 (0.83-1.09) H 11/26/18 06:45 - ASSESSMENT/PLAN 1. Make NPO 2. GI/DVT PPX 3. Medical optimization / clearance 4. Consent to be obtained by surgeon after risks, benefits and alternatives discussed with patient and or Health Care Proxy.
[2018-12-01 09:33] LABS: INR 1.61 (0.83-1.09); PROTHROMBIN TIME (PATIENT) 19.1 SEC (9.7-13.0)
[2018-12-01] MEDS: AMIODARONE HCL 200 MG TABLET (FP) GT SCH (11:45)
[2018-12-01] MEDS: AMANTADINE HCL 100MG/10 ML UNIT DOSE CUPS GT SCH ×2 (11:48→23:54)
[2018-12-01] MEDS: METOCLOPRAMIDE HCL INJECTION 10 MG/2 ML VIAL IVPUSH SCH ×2 (11:59→23:47)
[2018-12-01] MEDS: PANTOPRAZOLE SODIUM 40 MG VIAL IVPUSH SCH (12:00)
[2018-12-01] MEDS: COLLAGENASE CLOSTRIDIUM HIST. 30 GRAMS TUBE TP SCH (12:01)
[2018-12-01] MEDS: METOPROLOL TARTRATE 25 MG TABLET (FP) GT SCH ×2 (12:01→23:47)
--- NOTE | 2018-12-01 12:05 | PN ---
Progress Note, Physician History of Present Illness: pulmonary awake ,comfortable,on vent support ac mode,does not follow commands - Current Medication List Current Medications: Active Medications Amantadine HCl (Symmetrel Oral Solution -) 100 mg GT BID [facility] Last Admin: 12/01/18 11:48 Dose: Not Given Amiodarone HCl (Cordarone -) 200 mg GT DAILY [facility] Last Admin: 11/30/18 11:33 Dose: 200 mg Carbidopa/Levodopa (Sinemet 25/250 -) 2 each GT TID [facility] Last Admin: 12/01/18 06:18 Dose: 2 each Collagenase (Santyl -) 1 applic TP DAILY [facility]; Protocol Last Admin: 11/30/18 11:37 Dose: 1 applic Latanoprost (Xalatan 0.005% Eye Drops -) 1 drop OU HS [facility] Last Admin: 11/30/18 23:37 Dose: 1 drop Metoclopramide HCl (Reglan Injection -) 5 mg IVPUSH BID [facility] Last Admin: 11/30/18 23:35 Dose: 5 mg Metoprolol Tartrate (Lopressor -) 75 mg GT BID [facility] Last Admin: 11/30/18 23:35 Dose: 75 mg Metoprolol Tartrate (Lopressor Injection -) 5 mg IVPUSH Q4H PRN PRN Reason: TACHYCARDIA Pantoprazole Sodium (Protonix Iv) 40 mg IVPUSH DAILY [facility] Last Admin: 11/30/18 11:33 Dose: 40 mg - Objective Vital Signs: Vital Signs Temperature 97.9 F 12/01/18 05:00 Pulse Rate 84 12/01/18 06:48 Respiratory Rate 21 H 12/01/18 10:05 Blood Pressure 120/69 12/01/18 05:00 O2 Sat by Pulse Oximetry (%) 98 12/01/18 06:48 Constitutional: Yes: Well Nourished, Calm Eyes: Yes: WNL HENT: Yes: WNL Neck: Yes: Supple (trach) Cardiovascular: Yes: Pulse Irregular, S1, S2 Respiratory: Yes: Diminished, Rhonchi (few scattered rhonchi) Gastrointestinal: Yes: Normal Bowel Sounds, Soft Extremities: Yes: WNL Edema: Yes Labs: CBC, BMP 12/01/18 06:38 12/01/18 06:38 INR, PTT INR 1.61 (0.83-1.09) H 12/01/18 06:58 Fibrinogen 415.0 mg/dL (238-498) 11/21/18 14:20 Problem List - Problems (1) Atrial fibrillation with RVR Code(s): I48.91 - UNSPECIFIED ATRIAL FIBRILLATION (2) Chronic respiratory failure Code(s): J96.10 - CHRONIC RESPIRATORY FAILURE, UNSP W HYPOXIA OR HYPERCAPNIA (3) Sepsis Code(s): A41.9 - SEPSIS, UNSPECIFIED ORGANISM Qualifiers: Sepsis type: sepsis due to unspecified organism Sepsis acute organ dysfunction status: with acute organ dysfunction Severe sepsis acute organ dysfunction type: acute renal failure Acute renal failure type: unspecified Severe sepsis shock status: without septic shock Qualified Code(s): A41.9 - Sepsis, unspecified organism; R65.20 - Severe sepsis without septic shock; N17.9 - Acute kidney failure, unspecified (4) Parkinson disease Code(s): G20 - PARKINSON'S DISEASE (5) Pneumonitis Code(s): J18.9 - PNEUMONIA, UNSPECIFIED ORGANISM Assessment/Plan ASSESSMENT AND PLAN: Chronic Respiratory Failure Pneumonia Severe Sepsis Acute Kidney Injury Lactic Acidosis +Troponins likely Demand Ischemia Atrial Fibrillation COPD HTN Parkinsons Disease - HD as per renal - rate control - enteral feeds - DVT/GI prophylaxis - continue discussions regarding goals of care DR ARELLANO
--- NOTE | 2018-12-01 12:43 | PN ---
Teaching Attending Note Name of Resident: Renate Montilla ATTENDING PHYSICIAN STATEMENT I saw and evaluated the patient. I reviewed the resident's note and discussed the case with the resident. I agree with the resident's findings and plan as documented. SUBJECTIVE:resting comfortable OBJECTIVE: Last Vital Signs Temp Pulse Resp BP Pulse Ox 97.8 F 84 17 99/59 L 98 12/01/18 11:00 12/01/18 11:00 12/01/18 11:00 12/01/18 11:00 12/01/18 06:48 Intake & Output 11/28/18 11/29/18 11/30/18 12/01/18 23:59 23:59 23:59 23:59 Intake Total 200 1650 450 300 Output Total 50 2825 100 Balance 150 -1175 350 300 General resting comfortable CV S1 s2 RRR lungs decreased breath sounds anteriorly. no wheezing abdomen soft +distended. NT. +tympanic +PEG Extremities 2+ pitting edema B/L UE no pitting edema B/L LE sacral unstageable sacral ulcer ASSESSMENT AND PLAN: 88 year old male with Parkinson's Disease, COPD, HTN, Atrial Fibrillation, CRF s /p Trach/PEG, presented with fevers/chills, abdominal pain/distension, found to have SBO and sepsis secondary to Pneumonia. 1. Acute on Chronic Respiratory Failure and Severe Sepsis secondary to Pneumonia. s/p trach. vent dependent. +pseudomonas. completed abx course. ID and pulmonary on board 2. [place] due to sepsis/ATN vs contrast induced nephropathy-NPO for permacath placement today. plan for HD after. nephro on board 3. Dark Urine-due to thrombocytopenia. now clear. urology consult. 4. SBO- appears have ileus due to chronic illness. will resume feeds after permacath placement. add reglan. GI on board. 5. Volume overload-cont HD as tolerated 6. anemia- likely combination of chronic disease. received 1 unit PRBC. trend 7. Elevated INR- unknown cause. vit K x3 given. HIT panel pending. holding heparin and eliquis. heme on board 8. Dilated CBD/Elevated LFT- possibly due to sepsis and shock liver. LFT improving. GI on board 9. Atrial fibrillation with RVR - resumed on Metoprolol (at increased dose of 75mg BID) and Amiodarone. Transitioned from Heparin drip to Eliquis (now held due to elevated INR and Thrombocytopenia). 10. hemorrhagic bullae- noted on hands are improving. derm consulted 11. Elevated troponin - sec to demand due to sepsis. TnI max 0.07. No further work-up currently. Can follow with cardiology as out-patient. 12. Parkinson's Disease - Continue Sinemet/Amantadine. 13. HTN - BP borderline. Resumed on Metoprolol. 14. Dysphagia s/p PEG 15, Thrombocytopenia- no signs of bleeding. Hematology on board 16. unstageable sacral ulcer 17. DVT Px - Eliquis held. SCD 18. DNR. poor prognosis. family agreeable to LATCH placement. will work on transfer once HD access is secured
[2018-12-01] MEDS ORDERED: SODIUM CHLORIDE 250 ML IV PRN (13:38)
--- NOTE | 2018-12-01 13:38 | PN ---
Progress Note, Physician History of Present Illness: Pt seen and examined at bedside. He appears comfortable. He remains oligurinc. - Current Medication List Current Medications: Active Medications Amantadine HCl (Symmetrel Oral Solution -) 100 mg GT BID [facility] Last Admin: 12/01/18 11:48 Dose: Not Given Amiodarone HCl (Cordarone -) 200 mg GT DAILY [facility] Last Admin: 11/30/18 11:33 Dose: 200 mg Carbidopa/Levodopa (Sinemet 25/250 -) 2 each GT TID [facility] Last Admin: 12/01/18 06:18 Dose: 2 each Collagenase (Santyl -) 1 applic TP DAILY [facility]; Protocol Last Admin: 12/01/18 12:01 Dose: 1 applic Latanoprost (Xalatan 0.005% Eye Drops -) 1 drop OU HS [facility] Last Admin: 11/30/18 23:37 Dose: 1 drop Metoclopramide HCl (Reglan Injection -) 5 mg IVPUSH BID [facility] Last Admin: 12/01/18 11:59 Dose: 5 mg Metoprolol Tartrate (Lopressor -) 75 mg GT BID [facility] Last Admin: 12/01/18 12:01 Dose: Not Given Metoprolol Tartrate (Lopressor Injection -) 5 mg IVPUSH Q4H PRN PRN Reason: TACHYCARDIA Pantoprazole Sodium (Protonix Iv) 40 mg IVPUSH DAILY [facility] Last Admin: 12/01/18 12:00 Dose: 40 mg - Objective Vital Signs: Vital Signs Temperature 97.8 F 12/01/18 11:00 Pulse Rate 84 12/01/18 11:00 Respiratory Rate 17 12/01/18 11:00 Blood Pressure 99/59 L 12/01/18 11:00 O2 Sat by Pulse Oximetry (%) 98 12/01/18 06:48 Constitutional: Yes: Calm Neck: Yes: Other (trache) Cardiovascular: Yes: S1, S2 Respiratory: Yes: Intubated, Mechanically Ventilated Gastrointestinal: Yes: Soft, Other (peg) Genitourinary: Yes: Salguero Present, Hematuria, Oliguria Musculoskeletal: Yes: Muscle Weakness Edema: Yes Edema: LUE: Trace, RUE: Trace Integumentary: Yes: Skin Tear Neurological: Yes: Other (awake) Labs: CBC, BMP 12/01/18 06:38 12/01/18 06:38 INR, PTT INR 1.61 (0.83-1.09) H 12/01/18 06:58 Fibrinogen 415.0 mg/dL (238-498) 11/21/18 14:20 Problem List - Problems (1) [place] (acute kidney injury) Code(s): N17.9 - ACUTE KIDNEY FAILURE, UNSPECIFIED (2) Atrial fibrillation with RVR Code(s): I48.91 - UNSPECIFIED ATRIAL FIBRILLATION (3) Ileus Code(s): K56.7 - ILEUS, UNSPECIFIED (4) Sepsis Code(s): A41.9 - SEPSIS, UNSPECIFIED ORGANISM Qualifiers: Sepsis type: sepsis due to unspecified organism Sepsis acute organ dysfunction status: with acute organ dysfunction Severe sepsis acute organ dysfunction type: acute renal failure Acute renal failure type: unspecified Severe sepsis shock status: without septic shock Qualified Code(s): A41.9 - Sepsis, unspecified organism; R65.20 - Severe sepsis without septic shock; N17.9 - Acute kidney failure, unspecified Assessment/Plan Current Medications Generic Name Dose Route Start Last Admin Trade Name Freq PRN Reason Stop Dose Admin Amantadine HCl 100 mg 11/15/18 10:00 12/01/18 11:48 Symmetrel Oral Solution - GT Not Given BID [facility] Amiodarone HCl 200 mg 11/15/18 10:00 11/30/18 11:33 Cordarone - GT 200 mg DAILY [facility] Administration Carbidopa/Levodopa 2 each 11/15/18 06:00 12/01/18 06:18 Sinemet 25/250 - GT 2 each TID [facility] Administration Collagenase 1 applic 11/15/18 10:00 12/01/18 12:01 Santyl - TP 1 applic DAILY [facility] Administration Protocol Latanoprost 1 drop 11/15/18 22:00 11/30/18 23:37 Xalatan 0.005% Eye Drops - OU 1 drop HS [facility] Administration Metoclopramide HCl 5 mg 11/28/18 22:00 12/01/18 11:59 Reglan Injection - IVPUSH 5 mg BID [facility] Administration Metoprolol Tartrate 75 mg 11/15/18 10:00 12/01/18 12:01 Lopressor - GT Not Given BID [facility] Metoprolol Tartrate 5 mg 11/14/18 23:17 Lopressor Injection - IVPUSH Q4H PRN TACHYCARDIA Pantoprazole Sodium 40 mg 11/15/18 10:00 12/01/18 12:00 Protonix Iv IVPUSH 40 mg DAILY [facility] Administration Impression: 1. [place] 2. sepsis 3. PNA 4. SBO 5. Parkinson's 6. a-fib 7. chronic resp failure 8. severe sepsis 9. lactic acidosis 10. copd 11. hx of htn 12. thrombocytopenia Plan - pt getting permacath today - will arrange for HD tomorrow - check labs in am - monitor urine output - epogen for anemia
[2018-12-01] MEDS ORDERED: LIDOCAINE HCL 1%, 10 MG/ML (20ML VIAL) ONE (13:46)
--- NOTE | 2018-12-01 13:54 | PN ---
Physical Exam: SUBJECTIVE: Patient seen and examined OBJECTIVE: Vital Signs Period Temp Pulse Resp BP Sys/Cope Pulse Ox Last 24 Hr 97.4 F-98.4 F 67-87 16-27 89-125/54-69 98-100 GENERAL: The patient is awake, alert, and fully oriented, in no acute distress. HEAD: Normal with no signs of trauma. EYES: PERRL, extraocular movements intact, sclera anicteric, conjunctiva clear. No ptosis. ENT: Ears normal, nares patent, oropharynx clear without exudates, moist mucous membranes. NECK: Trachea midline, full range of motion, supple. LUNGS: Breath sounds equal, clear to auscultation bilaterally, no wheezes, no crackles, no accessory muscle use. HEART: Regular rate and rhythm, S1, S2 without murmur, rub or gallop. ABDOMEN: Soft, nontender, nondistended, normoactive bowel sounds, no guarding, no rebound, no hepatosplenomegaly, no masses. EXTREMITIES: 2+ pulses, warm, well-perfused, no edema. NEUROLOGICAL: Cranial nerves II through XII grossly intact. Normal speech, gait not observed. PSYCH: Normal mood, normal affect. SKIN: Warm, dry, normal turgor, no rashes or lesions noted Laboratory Results - last 24 hr 11/30/18 12/01/18 12/01/18 18:03 00:20 06:38 WBC 11.2 H RBC 2.74 L Hgb 8.4 L Hct 26.8 L MCV 97.6 H MCH 30.7 MCHC 31.5 L RDW 25.5 H Plt Count 110 L MPV 8.9 Absolute Neuts (auto) 8.1 H Neutrophils % 72.3 Lymphocytes % 15.0 Monocytes % 11.8 H Eosinophils % 0.7 Basophils % 0.2 Nucleated RBC % 0 PT with INR INR PTT (Actin FS) Sodium Potassium Chloride Carbon Dioxide Anion Gap BUN Creatinine Est GFR (CKD-EPI)AfAm Est GFR (CKD-EPI)NonAf POC Glucometer 97 90 Random Glucose Calcium Total Bilirubin AST ALT Alkaline Phosphatase Total Protein Albumin Blood Type Antibody Screen 12/01/18 12/01/18 12/01/18 06:38 06:38 06:58 WBC RBC Hgb Hct MCV MCH MCHC RDW Plt Count MPV Absolute Neuts (auto) Neutrophils % Lymphocytes % Monocytes % Eosinophils % Basophils % Nucleated RBC % PT with INR 19.10 H INR 1.61 H PTT (Actin FS) Sodium 138 Potassium 4.0 Chloride 100 Carbon Dioxide 22 Anion Gap 16 BUN 54.7 H Creatinine 5.1 H Est GFR (CKD-EPI)AfAm 10.82 Est GFR (CKD-EPI)NonAf 9.33 POC Glucometer 86 Random Glucose 97 Calcium 8.2 L Total Bilirubin 1.9 H AST 11 L ALT < 6 L Alkaline Phosphatase 113 Total Protein 5.2 L Albumin 2.1 L Blood Type Antibody Screen 12/01/18 12/01/18 12/01/18 10:15 10:15 12:10 WBC RBC Hgb Hct MCV MCH MCHC RDW Plt Count MPV Absolute Neuts (auto) Neutrophils % Lymphocytes % Monocytes % Eosinophils % Basophils % Nucleated RBC % PT with INR INR PTT (Actin FS) 37.4 H Sodium Potassium Chloride Carbon Dioxide Anion Gap BUN Creatinine Est GFR (CKD-EPI)AfAm Est GFR (CKD-EPI)NonAf POC Glucometer 80 Random Glucose Calcium Total Bilirubin AST ALT Alkaline Phosphatase Total Protein Albumin Blood Type O POSITIVE Antibody Screen Negative Active Medications Generic Name Dose Route Start Last Admin Trade Name Freq PRN Reason Stop Dose Admin Amantadine HCl 100 mg 11/15/18 10:00 12/01/18 11:48 Symmetrel Oral Solution - GT Not Given BID [facility] Amiodarone HCl 200 mg 11/15/18 10:00 11/30/18 11:33 Cordarone - GT 200 mg DAILY [facility] Administration Carbidopa/Levodopa 2 each 11/15/18 06:00 12/01/18 06:18 Sinemet 25/250 - GT 2 each TID [facility] Administration Collagenase 1 applic 11/15/18 10:00 12/01/18 12:01 Santyl - TP 1 applic DAILY [facility] Administration Protocol Epoetin Martir 5,000 unit 12/02/18 13:38 Epogen - IVPUSH 12/02/18 13:39 ONCE ONE Sodium Chloride 250 mls @ 3,000 mls/hr 12/01/18 13:38 Normal Saline - IV 12/02/18 13:38 PRN PRN Hypotension during Dialysis Latanoprost 1 drop 11/15/18 22:00 11/30/18 23:37 Xalatan 0.005% Eye Drops - OU 1 drop HS [facility] Administration Metoclopramide HCl 5 mg 11/28/18 22:00 12/01/18 11:59 Reglan Injection - IVPUSH 5 mg BID [facility] Administration Metoprolol Tartrate 75 mg 11/15/18 10:00 12/01/18 12:01 Lopressor - GT Not Given BID [facility] Metoprolol Tartrate 5 mg 11/14/18 23:17 Lopressor Injection - IVPUSH Q4H PRN TACHYCARDIA Pantoprazole Sodium 40 mg 11/15/18 10:00 12/01/18 12:00 Protonix Iv IVPUSH 40 mg DAILY [facility] Administration ASSESSMENT/PLAN: Mr. Smalls is an 88yo male with Parkinson's, COPD, CHF, HTN, a-fib on Eliquis, respiratory failure with trach and PEG, hx of prostate cancer who presents for abdominal distention and fevers. He was found to be septic 2/2 pneumonia, as well as SBO, and CBD dilation. UA on 11/10/18 resulted in UTI diagnosis. Creatinine was increasing, but has improved since hemodialysis began on 11/19. 1. [place], on HD 39.9/3.3 -pt received 5th HD -monitor INR -pt typed and crossed -femoral line to be removed and Permacath placed today for HD -brown urine -Nephro following -CMP/BMP 2. SBO vs ileus pt became more distended over the last week, X-ray today cannot confirm or r/o SBO or ileus. CT 11/23/18 showed slightly increased bowel dilation compared to previous exam but no SBO. -feeds held for procedure today -Reglan -rectal tube placed -Surgical recs appreciated -discuss goals of care with family 3. anemia Hb 7.8 with recent hematuria, FOBT positive -transfused 1 unit PRBCs last week -repeat CBC, reassess -heme following 4. hematuria, possibly 2/2 DIC/coagulopathy -urology following -heme following 5. acute on chronic hypoxic respiratory failure s/p trach/vent with sepsis 2/2 PNA CXR week ago showed decrease congestion -Tylenol PRN discomfort -leukocytosis resolved 7.0 -fluids being held, limiting drips -blood cultures negative -sputum culture positive Klebsiella, Pseudomonas, Proteus Mirabilus -CT abd/pelvis 11/05/18 showed mod to large pleural effusion on right, moderate on left -Ceftazidime/Avibactam and Flagyl x 14 days completed -ID following -Pulm following -CBC 6. complicated UTI -galarza in place 7. acute on chronic diastolic CHF -echo EF 65-70%, no LVH, mild RA dilation, moderate TR, moderate AR, no pericardial effusion -fluids successfully removed during previous HD sessions -Lasix has been held -no extra fluids -CMP 8. paroxysmal a-fib HR 100s -metoprolol has been held when pressure is low -INR 1.55 yesterday, Eliquis held -EKG 11/08/18: irregular rhythm, HR 98, QTc 589 -monitor QTc and medications which could increase it 9. thrombocytopenia Plt 59. DIC/coagulopathy -Factors V, VIII, X and XII, mixed PT and PTT LAC studies pending -monitor for signs of bleeding -HIT negative -type and cross done -heme following 10. INR 1.55 -Eliquis held 11. hypoglycemia well-controlled -feedings stopped after vomiting x 2 in the last day; will restart feeds tomorrow and titrate up -SSI 12. transaminitis, Alk Phos AST 16, ALT <6, Alk Phos 124 -negative FACUNDO, c-ANCA, p-ANCA, DS DNA Ab, GBM Ab, Heparin-induced plt Ab, myeloperoxidase Ab -negative hep B, and hep C, negative hep A IgM -GI following 13. HTN well-controlled, currently on metoprolol -frequent VS checks 14. decubitus ulcer -santyl 15. hemorrhagic bullae -dressing on right hand -derm consulted 16. COPD RR normal on ventilator. 17. Parkinson's -continue home meds when receiving feedings 18. hx of prostate cancer -PSA FEN none monitor lytes tube feedings held DVT Ppe SCDs, Eliquis 2.5mg BID- held GI Ppe Protonix- held Dispo The family, palliative care, and the medicine team met this week to discuss goals of care. Speech consulted for communication. Suggested valve to be placed by pulm to allow pt to attempt to speak. They are currently working with the family on Y/N headshaking and eye gaze for communication. The family will decide over the weekend if they want to continue HD. Son is point of contact. DNR ATTENDING PHYSICIAN STATEMENT I saw and evaluated the patient. I reviewed the resident's note and discussed the case with the resident. I agree with the resident's findings and plan as documented. SUBJECTIVE: OBJECTIVE: ASSESSMENT AND PLAN:
[2018-12-01] MEDS ORDERED: MIDAZOLAM HCL 2 MG/2 ML SINGLE DOSE VIAL ONE (14:58)
[2018-12-01] MEDS ORDERED: ceFAZolin SODIUM 1 GM VIAL IVPB ONE (15:10)
[2018-12-01] MEDS ORDERED: LIDOCAINE HCL 1%, 10 MG/ML (50 mL VIAL) IJ ONE (15:23)
--- NOTE | 2018-12-01 15:44 | OP ---
Operative Note - Note: Operative Date: 12/01/18 Pre-Operative Diagnosis: Acute renal failure Operation: Insertion of permacath Post-Operative Diagnosis: Same as Pre-op Surgeon: Ramiro Zhang Anesthesia: Fractional Estimated Blood Loss (mls): 20 Operative Report Dictated: Yes
--- NOTE | 2018-12-01 16:49 | PN ---
Progress Note (short form) - Note Progress Note: Attempted to evaluate pt, off the floor this afternoon for permcath placement. Feeds therefore have not yet been restarted. Trial of feeds to be resumed following permcath. Will continue to follow and reassess tolerance.
[2018-12-01] MEDS ORDERED: METOPROLOL TARTRATE 5 MG/5 ML VIAL IVPUSH PRN (17:32)
[2018-12-01] MEDS: LATANOPROST 0.005% OPHTH SOLN 2.5ML BOTTLE OU SCH (23:49)
[2018-12-02] MEDS: CARBIDOPA/LEVODOPA 25/250 TABLET (FP) GT SCH ×3 (05:32→22:52)
[2018-12-02 07:16] LABS: BASO % 0.2 % (0-2.0); EOS % 0.6 % (0-4.5); HEMATOCRIT 25.5 % (35.4-49); HEMOGLOBIN 8.2 GM/dL (11.7-16.9); LYMPH % 13.1 % (8-40); MCH 31.4 pg (25.7-33.7); MCHC 32.1 g/dl (32.0-35.9); MEAN CELL VOLUME 97.8 fl (80-96); MEAN PLT VOLUME 8.9 fl (7.5-11.1); MONO % 10.6 % (3.8-10.2); NEUT % 75.5 % (42.8-82.8); PLATELET COUNT 105 K/MM3 (134-434); RBC 2.61 M/mm3 (4.00-5.60); RDW 26.3 % (11.9-15.9); WHITE BLOOD COUNT 9.6 K/mm3 (4.0-10.0)
[2018-12-02 07:37] LABS: BLOOD UREA NITROGEN 57.2 mg/dL (7-18); CALCIUM 7.8 mg/dL (8.5-10.1); CREATININE 5.4 mg/dL (0.55-1.3); POTASSIUM 3.7 mmol/L (3.5-5.1)
--- NOTE | 2018-12-02 08:26 | PN ---
Progress Note (short form) - Note Progress Note: POD #1 s/p Permacath Insertion Patient currently on HD via Permacath. Tolerating well with good flow as per HD RN. AVSS. Afeb Gen: nad Chest: PC cath intact. NO signs of infection Problem List - Problems (1) [place] (acute kidney injury) Assessment/Plan: POD #1 s/p PC insertion. Cont care as per primary team. Vascular Surgery signing off of case. Above discussed with my attending and agrees. On behalf of Dr. Zhang, thank you for the opportunity to participate in your patient's care. Code(s): N17.9 - ACUTE KIDNEY FAILURE, UNSPECIFIED (2) Abnormal liver function tests Code(s): R94.5 - ABNORMAL RESULTS OF LIVER FUNCTION STUDIES (3) Chronic respiratory failure Code(s): J96.10 - CHRONIC RESPIRATORY FAILURE, UNSP W HYPOXIA OR HYPERCAPNIA (4) Hematuria Code(s): R31.9 - HEMATURIA, UNSPECIFIED (5) MRSA (methicillin resistant Staphylococcus aureus) colonization Code(s): Z22.322 - CARRIER OR SUSPECTED CARRIER OF METHICILLIN RESIS STAPH (6) Sepsis Code(s): A41.9 - SEPSIS, UNSPECIFIED ORGANISM Qualifiers: Sepsis type: sepsis due to unspecified organism Sepsis acute organ dysfunction status: with acute organ dysfunction Severe sepsis acute organ dysfunction type: acute renal failure Acute renal failure type: unspecified Severe sepsis shock status: without septic shock Qualified Code(s): A41.9 - Sepsis, unspecified organism; R65.20 - Severe sepsis without septic shock; N17.9 - Acute kidney failure, unspecified (7) Thrombocytopenia Code(s): D69.6 - THROMBOCYTOPENIA, UNSPECIFIED
[2018-12-02] MEDS ORDERED: EPOETIN ALFA 3,000 UNIT, EPOETIN ALFA 2,000 UNIT IVPUSH ONE (09:00)
[2018-12-02] MEDS ORDERED: SODIUM CHLORIDE 250 ML IV PRN (09:00)
--- NOTE | 2018-12-02 10:11 | OP ---
DATE OF OPERATION: 12/01/2018 PREOPERATIVE DIAGNOSIS: Acute renal failure. POSTOPERATIVE DIAGNOSIS: Acute renal failure. PROCEDURE: Insertion of Perma-Cath. SURGEON: Ramiro Esquivel DO ANESTHESIA: Fractional. BLOOD LOSS: 20 mL. INDICATIONS: Patient is an 88-year-old male who comes in with acute renal failure. He needs a temporary dialysis catheter placement. Patient's family was consented for the procedure understanding all risks, benefits, alternatives. Patient was then brought to the operating room. DESCRIPTION OF PROCEDURE: Once he was brought to the operating area, the right neck and chest were prepped and draped in sterile surgical manner. Under ultrasound guidance, we visualized the right internal jugular vein, and 10 mL of lidocaine 1% was injected there. We then took our micropuncture needle and punctured the right internal jugular vein under ultrasound guidance. A micropuncture wire was placed. Micropuncture sheath was placed, a 0.035 floppy guidewire was inserted under fluoroscopy. We then injected 10 mL of lidocaine 1% above and below the clavicle. We then used a No. 11 blade and made a 1-cm incision in the puncture site. We took a No. 15 blade and made a 1-cm incision below the clavicle. We then tunneled the Perma-Cath up to the puncture site. We then took our breakaway sheath, placed it over the guidewire, into the vein under fluoroscopy. The inner cannula and guidewire were removed. Catheter was placed inside the sheath. The sheath was broken away. The catheter was placed inside the vein. The neck of the catheter was nice and smooth. Tip of the catheter was located outside the right atrium. We then latesha back on each port of the catheter. There was good flow. Heparinized saline was injected, 2000 units of IV heparin was injected into each port. Then used 4-0 Biosyn, 2 simple sutures were placed at the puncture site, 3-0 nylon was used, catheter was attached to the skin. , Steri-Strips, 4 x 4's, and Tegaderms were placed. Patient tolerated the procedure well with no complication. Patient transferred to PACU in stable condition where a chest x-ray will be ordered. RAMIRO ESQUIVEL DO TECHNICIAN [employer]/[id number]
--- NOTE | 2018-12-02 11:03 | PN ---
Progress Note (short form) - Note Progress Note: Vented on volume assist control. Eyes are open. No fevers recorded. No acute events overnight. Intake & Output 11/29/18 11/30/18 12/01/18 12/02/18 23:59 23:59 23:59 23:59 Intake Total 1650 450 800 600 Output Total 2825 916 31 0128 Balance -1175 350 765 -700 Last Vital Signs Temp Pulse Resp BP Pulse Ox 97.6 F 108 H 16 104/43 L 100 12/02/18 07:00 12/02/18 10:42 12/02/18 10:42 12/02/18 10:42 12/01/18 21:00 Active Medications Amantadine HCl (Symmetrel Oral Solution -) 100 mg GT BID [facility] Last Admin: 12/01/18 23:54 Dose: 100 mg Amiodarone HCl (Cordarone -) 200 mg GT DAILY [facility] Carbidopa/Levodopa (Sinemet 25/250 -) 2 each GT TID [facility] Last Admin: 12/02/18 05:32 Dose: 2 each Collagenase (Santyl -) 1 applic TP DAILY [facility]; Protocol Latanoprost (Xalatan 0.005% Eye Drops -) 1 drop OU HS [facility] Last Admin: 12/01/18 23:49 Dose: 1 drop Metoclopramide HCl (Reglan Injection -) 5 mg IVPUSH BID [facility] Last Admin: 12/01/18 23:47 Dose: 5 mg Metoprolol Tartrate (Lopressor -) 75 mg GT BID [facility] Last Admin: 12/01/18 23:47 Dose: 75 mg Metoprolol Tartrate (Lopressor Injection -) 5 mg IVPUSH Q4H PRN PRN Reason: TACHYCARDIA Pantoprazole Sodium (Protonix Iv) 40 mg IVPUSH DAILY [facility] Gen: Awake, vented, NAD Heart: irregular Lung: scattered rhonchi Abd: soft, nontender Ext: + edema Laboratory Results - last 24 hr 12/01/18 12/01/18 12/01/18 10:15 12:10 23:38 WBC RBC Hgb Hct MCV MCH MCHC RDW Plt Count MPV Absolute Neuts (auto) Neutrophils % Lymphocytes % Monocytes % Eosinophils % Basophils % Nucleated RBC % Sodium Potassium Chloride Carbon Dioxide Anion Gap BUN Creatinine Est GFR (CKD-EPI)AfAm Est GFR (CKD-EPI)NonAf POC Glucometer 80 61 Random Glucose Calcium Blood Type O POSITIVE Antibody Screen Negative 12/02/18 12/02/18 12/02/18 01:52 05:36 06:35 WBC RBC Hgb Hct MCV MCH MCHC RDW Plt Count MPV Absolute Neuts (auto) Neutrophils % Lymphocytes % Monocytes % Eosinophils % Basophils % Nucleated RBC % Sodium 138 Potassium 3.7 Chloride 100 Carbon Dioxide 21 Anion Gap 17 H BUN 57.2 H Creatinine 5.4 H Est GFR (CKD-EPI)AfAm 10.09 Est GFR (CKD-EPI)NonAf 8.71 POC Glucometer 77 77 Random Glucose 95 Calcium 7.8 L Blood Type Antibody Screen 12/02/18 06:35 WBC 9.6 RBC 2.61 L Hgb 8.2 L Hct 25.5 L MCV 97.8 H MCH 31.4 MCHC 32.1 RDW 26.3 H Plt Count 105 L MPV 8.9 Absolute Neuts (auto) 7.2 Neutrophils % 75.5 Lymphocytes % 13.1 Monocytes % 10.6 H Eosinophils % 0.6 Basophils % 0.2 Nucleated RBC % 0 Sodium Potassium Chloride Carbon Dioxide Anion Gap BUN Creatinine Est GFR (CKD-EPI)AfAm Est GFR (CKD-EPI)NonAf POC Glucometer Random Glucose Calcium Blood Type Antibody Screen A/P Chronic Respiratory Failure Pneumonia Severe Sepsis Acute Kidney Injury Lactic Acidosis +Troponins likely Demand Ischemia Atrial Fibrillation Thrombocytopenia Anemia COPD HTN Parkinsons Disease - off antibiotics per ID - HD per renal with ultrafiltration - monitor urine output, creatinine - rate control - enteral feeds - DVT/GI prophylaxis - continue discussions regarding goals of care - DC planning Dr Nelson
[2018-12-02] MEDS ORDERED: PT OWN MED DRAWER 7, Y5N ONE ×2 (11:07→22:51)
[2018-12-02] MEDS: METOCLOPRAMIDE HCL INJECTION 10 MG/2 ML VIAL IVPUSH SCH ×2 (11:38→22:53)
[2018-12-02] MEDS: METOPROLOL TARTRATE 25 MG TABLET (FP) GT SCH ×2 (11:38→22:49)
[2018-12-02] MEDS: AMIODARONE HCL 200 MG TABLET (FP) GT SCH (11:38)
[2018-12-02] MEDS: PANTOPRAZOLE SODIUM 40 MG VIAL IVPUSH SCH (11:38)
[2018-12-02] MEDS: AMANTADINE HCL 100MG/10 ML UNIT DOSE CUPS GT SCH ×2 (11:39→22:54)
[2018-12-02] MEDS ORDERED: EPOETIN ALFA 2,000 UNIT/1 ML VIAL IVPUSH ONE ×2 (13:38)
--- NOTE | 2018-12-02 13:54 | DS ---
Physical Exam: SUBJECTIVE: Patient seen and examined OBJECTIVE: Vital Signs Period Temp Pulse Resp BP Sys/Cope Pulse Ox Last 24 Hr 97.0 F-98.6 F 74-109 15-27 80-118/40-61 93-100 PHYSICAL EXAM GENERAL: The patient is awake, alert, and fully oriented, in no acute distress. HEAD: Normal with no signs of trauma. EYES: PERRL, extraocular movements intact, sclera anicteric, conjunctiva clear. ENT: Ears normal, nares patent, oropharynx clear without exudates, moist mucous membranes. NECK: Trachea midline, full range of motion, supple. LUNGS: Breath sounds equal, clear to auscultation bilaterally, no wheezes, no crackles, no accessory muscle use. HEART: Regular rate and rhythm, S1, S2 without murmur, rub or gallop. ABDOMEN: Soft, nontender, nondistended, normoactive bowel sounds, no guarding, no rebound, no hepatosplenomegaly, no masses. EXTREMITIES: 2+ pulses, warm, well-perfused, no edema. NEUROLOGICAL: Cranial nerves II through XII grossly intact. Normal speech, gait not observed. PSYCH: Normal mood, normal affect. SKIN: Warm, dry, normal turgor, no rashes or lesions noted. LABS Laboratory Results - last 24 hr 12/01/18 12/02/18 12/02/18 23:38 01:52 05:36 WBC RBC Hgb Hct MCV MCH MCHC RDW Plt Count MPV Absolute Neuts (auto) Neutrophils % Lymphocytes % Monocytes % Eosinophils % Basophils % Nucleated RBC % Sodium Potassium Chloride Carbon Dioxide Anion Gap BUN Creatinine Est GFR (CKD-EPI)AfAm Est GFR (CKD-EPI)NonAf POC Glucometer 61 77 77 Random Glucose Calcium 12/02/18 12/02/18 12/02/18 06:35 06:35 11:32 WBC 9.6 RBC 2.61 L Hgb 8.2 L Hct 25.5 L MCV 97.8 H MCH 31.4 MCHC 32.1 RDW 26.3 H Plt Count 105 L MPV 8.9 Absolute Neuts (auto) 7.2 Neutrophils % 75.5 Lymphocytes % 13.1 Monocytes % 10.6 H Eosinophils % 0.6 Basophils % 0.2 Nucleated RBC % 0 Sodium 138 Potassium 3.7 Chloride 100 Carbon Dioxide 21 Anion Gap 17 H BUN 57.2 H Creatinine 5.4 H Est GFR (CKD-EPI)AfAm 10.09 Est GFR (CKD-EPI)NonAf 8.71 POC Glucometer 55 Random Glucose 95 Calcium 7.8 L HOSPITAL COURSE: Date of Admission:11/05/18 Date of Discharge: 12/02/18 Discharge Summary Reason For Visit: UTOI,SEPSIS,PNEUMONIA,ATRIAL FIBRILLATION W. Current Active Problems [place] (acute kidney injury) (Acute) Abnormal liver function tests (Acute) Atrial fibrillation with RVR (Acute) Chronic respiratory failure (Acute) DIC (disseminated intravascular coagulation) (Acute) DIC (disseminated intravascular coagulation) (Acute) Dilated cbd, acquired (Acute) Fecal retention (Acute) Fever (Acute) Hematuria (Acute) Hematuria (Acute) Ileus (Acute) MRSA (methicillin resistant Staphylococcus aureus) colonization (Acute) Parkinson disease (Acute) Pneumonia (Acute) Pneumonitis (Acute) Prolonged INR (Acute) SBO (small bowel obstruction) (Acute) Sepsis (Acute) Thrombocytopenia (Acute) UTI (urinary tract infection) (Acute) Condition: Stable - Instructions Diet, Activity, Other Instructions: Hospital Visit: You were admitted to the hospital for abdominal discomfort. You were found to have a bowel obstruction, pneumonia, and urinary tract infection. You were put on bowel rest initially, and it improved. The obstruction did come and go during the hospital stay, and your tube feedings were held during the obstructions and you were fed when it was gone. Your pneumonia and urinary tract infection were treated with antibiotics. Your kidney function declined and your body retained fluid while you were in the hospital, so you were given dialysis. You initially had a dialysis catheter in your upper leg and then a more permanent one was placed in your chest. You are medically stable enough for transfer to a facility which focuses on long-term management of your dialysis and ventilator. Medications you are to continue: Lopressor 75mg twice a day through gastric tube Amiodarone 200mg twice a day through gastric tube Protonix 40mg once a day through IV Follow up with the following physicians: Primary care physician Dr. Ibrahim, nephrology Dr. Julien, pulmonlolgy Dr. Azevedo, hematology Dr. Gruber, urology You are being discharged to a [facility]. Follow the medication and follow up recommendations of the physicians that the facility. Referrals: Jose Alejandro Simon MD [Staff Physician] - Calixto Azevedo MD [Staff Physician] - Tan Ibrahim MD [Staff Physician] - Inder Julien MD, MD [Staff Physician] - Disposition: TRANSFER ACUTE CARE/OTHER HOSP - Home Medications Comprehensive Discharge Medication List: Ambulatory Orders Acetaminophen [Tylenol] 650 mg GT QID PRN 11/05/18 Albuterol 2.5/Ipratropium 0.5 [Duoneb -] 1 neb IH QID 11/05/18 Amantadine Oral Solution [Symmetrel Oral Solution -] 100 mg GT BID 11/05/18 Amiodarone HCl [Cordarone -] 200 mg GT DAILY 11/05/18 Apixaban [Eliquis -] 5 mg GT BID 11/05/18 Ascorbic Acid 500 mg GT DAILY 11/05/18 Carbidopa/Levodopa 25/250 [Sinemet 25/250 -] 2 each PO TID 11/05/18 Docusate Liquid [Colace Liquid -] 100 mg GT DAILY 11/05/18 Famotidine 20 mg GT DAILY 11/05/18 Furosemide [Lasix -] 40 mg GT DAILY 11/05/18 Homatropine HBr 5% Ophth Soln [Isopto Homatropine] 1 drop OD QID 11/05/18 Latanoprost 0.005% Eye Drops [Xalatan 0.005% Eye Drops -] 1 drop OU HS 11/05/18 Metoprolol Tartrate [Lopressor -] 50 mg GT BID 11/05/18 Multivitamin [Multiple Vitamins] 15 ml GT DAILY 11/05/18 Polyethylene Glycol 3350 [Miralax (For Bowel Prep) -] 17 gm GT DAILY 11/05/18 Tobramycin/Dexamethasone [Tobradex Eye Drops] 1 drop OU BID 11/05/18 Zinc Sulfate [Zinc-220] 220 mg GT DAILY 11/05/18 - Discharge Referral Referred to [facility] No Physician Referral: Deandre Quinonez DO (GI) ATTENDING PHYSICIAN STATEMENT I saw and evaluated the patient. I reviewed the resident's note and discussed the case with the resident. I agree with the resident's findings and plan as documented. SUBJECTIVE: OBJECTIVE: ASSESSMENT AND PLAN:
--- NOTE | 2018-12-02 14:23 | PN ---
Teaching Attending Note Name of Resident: Renate Montilla ATTENDING PHYSICIAN STATEMENT I saw and evaluated the patient. I reviewed the resident's note and discussed the case with the resident. I agree with the resident's findings and plan as documented. SUBJECTIVE:resting comfortable OBJECTIVE: Last Vital Signs Temp Pulse Resp BP Pulse Ox 97.6 F 108 H 16 104/43 L 100 12/02/18 07:00 12/02/18 10:42 12/02/18 10:42 12/02/18 10:42 12/01/18 21:00 General resting comfortable CV S1 s2 RRR lungs decreased breath sounds anteriorly. no wheezing abdomen soft +distended. NT. +tympanic +PEG Extremities 2+ pitting edema B/L UE no pitting edema B/L LE sacral unstageable sacral ulcer ASSESSMENT AND PLAN: 88 year old male with Parkinson's Disease, COPD, HTN, Atrial Fibrillation, CRF s /p Trach/PEG, presented with fevers/chills, abdominal pain/distension, found to have SBO and sepsis secondary to Pneumonia. 1. Acute on Chronic Respiratory Failure and Severe Sepsis secondary to Pneumonia. s/p trach. vent dependent. +pseudomonas. completed abx course. ID and pulmonary on board 2. [place] due to sepsis/ATN vs contrast induced nephropathy-s/p permacath placement 12/01. plan for HD today. nephro on board 3. Dark Urine-due to thrombocytopenia. now clear. urology consult. 4. SBO- appears have ileus due to chronic illness. will resume feeds after permacath placement. add reglan. GI on board. 5. Volume overload-cont HD as tolerated 6. anemia- likely combination of chronic disease. received 1 unit PRBC. trend 7. Elevated INR- unknown cause. vit K x3 given. HIT panel pending. holding heparin and eliquis. heme on board 8. Dilated CBD/Elevated LFT- possibly due to sepsis and shock liver. LFT improving. GI on board 9. Atrial fibrillation with RVR - resumed on Metoprolol (at increased dose of 75mg BID) and Amiodarone. Transitioned from Heparin drip to Eliquis (now held due to elevated INR and Thrombocytopenia). 10. hemorrhagic bullae- noted on hands are improving. derm consulted 11. Elevated troponin - sec to demand due to sepsis. TnI max 0.07. No further work-up currently. Can follow with cardiology as out-patient. 12. Parkinson's Disease - Continue Sinemet/Amantadine. 13. HTN - BP borderline. Resumed on Metoprolol. 14. Dysphagia s/p PEG 15, Thrombocytopenia- no signs of bleeding. Hematology on board 16. unstageable sacral ulcer 17. DVT Px - Eliquis held. SCD 18. DNR. poor prognosis. LTACH placement. has bed available. plan to leave tomorrow morning. family in agreement
--- NOTE | 2018-12-02 17:06 | PN ---
Progress Note, Physician History of Present Illness: Pt seen and examined at bedside. He tolerated HD. - Current Medication List Current Medications: Active Medications Amantadine HCl (Symmetrel Oral Solution -) 100 mg GT BID [facility] Last Admin: 12/02/18 11:39 Dose: 100 mg Amiodarone HCl (Cordarone -) 200 mg GT DAILY [facility] Last Admin: 12/02/18 11:38 Dose: 200 mg Carbidopa/Levodopa (Sinemet 25/250 -) 2 each GT TID [facility] Last Admin: 12/02/18 14:51 Dose: 2 each Collagenase (Santyl -) 1 applic TP DAILY [facility]; Protocol Latanoprost (Xalatan 0.005% Eye Drops -) 1 drop OU HS [facility] Last Admin: 12/01/18 23:49 Dose: 1 drop Metoclopramide HCl (Reglan Injection -) 5 mg IVPUSH BID [facility] Last Admin: 12/02/18 11:38 Dose: 5 mg Metoprolol Tartrate (Lopressor -) 75 mg GT BID [facility] Last Admin: 12/02/18 11:38 Dose: 75 mg Metoprolol Tartrate (Lopressor Injection -) 5 mg IVPUSH Q4H PRN PRN Reason: TACHYCARDIA Pantoprazole Sodium (Protonix Iv) 40 mg IVPUSH DAILY [facility] Last Admin: 12/02/18 11:38 Dose: 40 mg - Objective Vital Signs: Vital Signs Temperature 98.4 F 12/02/18 15:00 Pulse Rate 108 H 12/02/18 15:00 Respiratory Rate 20 12/02/18 15:00 Blood Pressure 89/47 L 12/02/18 15:00 O2 Sat by Pulse Oximetry (%) 100 12/01/18 21:00 Constitutional: Yes: Calm Eyes: Yes: Conjunctiva Clear Neck: Yes: Other (trache) Cardiovascular: Yes: S1, S2 Respiratory: Yes: Intubated, Mechanically Ventilated Gastrointestinal: Yes: Soft, Other (peg) Genitourinary: Yes: Salguero Present, Oliguria Musculoskeletal: Yes: Muscle Weakness Edema: Yes Edema: LUE: Trace, RUE: Trace, LLE: Trace, RLE: Trace Integumentary: Yes: Skin Tear Neurological: Yes: Other (awake) Labs: CBC, BMP 12/02/18 06:35 12/02/18 06:35 INR, PTT INR 1.61 (0.83-1.09) H 12/01/18 06:58 Fibrinogen 415.0 mg/dL (238-498) 11/21/18 14:20 Problem List - Problems (1) [place] (acute kidney injury) Code(s): N17.9 - ACUTE KIDNEY FAILURE, UNSPECIFIED (2) Atrial fibrillation with RVR Code(s): I48.91 - UNSPECIFIED ATRIAL FIBRILLATION (3) Ileus Code(s): K56.7 - ILEUS, UNSPECIFIED (4) Sepsis Code(s): A41.9 - SEPSIS, UNSPECIFIED ORGANISM Qualifiers: Sepsis type: sepsis due to unspecified organism Sepsis acute organ dysfunction status: with acute organ dysfunction Severe sepsis acute organ dysfunction type: acute renal failure Acute renal failure type: unspecified Severe sepsis shock status: without septic shock Qualified Code(s): A41.9 - Sepsis, unspecified organism; R65.20 - Severe sepsis without septic shock; N17.9 - Acute kidney failure, unspecified Assessment/Plan Current Medications Generic Name Dose Route Start Last Admin Trade Name Freq PRN Reason Stop Dose Admin Amantadine HCl 100 mg 12/01/18 22:00 12/02/18 11:39 Symmetrel Oral Solution - GT 100 mg BID [facility] Administration Amiodarone HCl 200 mg 12/02/18 10:00 12/02/18 11:38 Cordarone - GT 200 mg DAILY [facility] Administration Carbidopa/Levodopa 2 each 12/01/18 22:00 12/02/18 14:51 Sinemet 25/250 - GT 2 each TID [facility] Administration Collagenase 1 applic 12/02/18 10:00 Santyl - TP DAILY [facility] Protocol Latanoprost 1 drop 12/01/18 22:00 12/01/18 23:49 Xalatan 0.005% Eye Drops - OU 1 drop HS [facility] Administration Metoclopramide HCl 5 mg 12/01/18 22:00 12/02/18 11:38 Reglan Injection - IVPUSH 5 mg BID [facility] Administration Metoprolol Tartrate 75 mg 12/01/18 22:00 12/02/18 11:38 Lopressor - GT 75 mg BID [facility] Administration Metoprolol Tartrate 5 mg 12/01/18 17:32 Lopressor Injection - IVPUSH Q4H PRN [facility] Pantoprazole Sodium 40 mg 12/02/18 10:00 12/02/18 11:38 Protonix Iv IVPUSH 40 mg DAILY [facility] Administration Impression: 1. [place] 2. sepsis 3. PNA 4. SBO 5. Parkinson's 6. a-fib 7. chronic resp failure 8. severe sepsis 9. lactic acidosis 10. copd 11. hx of htn 12. thrombocytopenia Plan - pt tolerated HD - percamath in place - will need labs and urine output monitored for [place] - epogen for anemia
[2018-12-02] MEDS: COLLAGENASE CLOSTRIDIUM HIST. 30 GRAMS TUBE TP SCH (18:10)
[2018-12-02] MEDS: LATANOPROST 0.005% OPHTH SOLN 2.5ML BOTTLE OU SCH (22:55)
[2018-12-03] MEDS: CARBIDOPA/LEVODOPA 25/250 TABLET (FP) GT SCH ×2 (06:54→18:20)
--- NOTE | 2018-12-03 10:40 | PN ---
Progress Note (short form) - Note Progress Note: Left femoral trialysis catheter removed today at 0855. Pressure was held with minimal blood loss and pressure dressing was applied. No complications.
[2018-12-03] MEDS: PANTOPRAZOLE SODIUM 40 MG VIAL IVPUSH SCH (10:41)
[2018-12-03] MEDS: METOCLOPRAMIDE HCL INJECTION 10 MG/2 ML VIAL IVPUSH SCH (10:41)
[2018-12-03] MEDS: AMIODARONE HCL 200 MG TABLET (FP) GT SCH (10:41)
[2018-12-03] MEDS: METOPROLOL TARTRATE 25 MG TABLET (FP) GT SCH (10:42)
[2018-12-03] MEDS: COLLAGENASE CLOSTRIDIUM HIST. 30 GRAMS TUBE TP SCH (10:42)
[2018-12-03] MEDS: AMANTADINE HCL 100MG/10 ML UNIT DOSE CUPS GT SCH (10:43)
[2018-12-03] MEDS ORDERED: SODIUM CHLORIDE 250 ML IV PRN (12:29)
--- NOTE | 2018-12-03 12:29 | PN ---
Progress Note, Physician History of Present Illness: Pt seen and examined at bedside. He appears comfortable. - Current Medication List Current Medications: Active Medications Amantadine HCl (Symmetrel Oral Solution -) 100 mg GT BID [facility] Last Admin: 12/03/18 10:43 Dose: 100 mg Amiodarone HCl (Cordarone -) 200 mg GT DAILY [facility] Last Admin: 12/03/18 10:41 Dose: 200 mg Carbidopa/Levodopa (Sinemet 25/250 -) 2 each GT TID [facility] Last Admin: 12/03/18 06:54 Dose: 2 each Collagenase (Santyl -) 1 applic TP DAILY [facility]; Protocol Last Admin: 12/03/18 10:42 Dose: 1 applic Latanoprost (Xalatan 0.005% Eye Drops -) 1 drop OU HS [facility] Last Admin: 12/02/18 22:55 Dose: 1 drop Metoclopramide HCl (Reglan Injection -) 5 mg IVPUSH BID [facility] Last Admin: 12/03/18 10:41 Dose: Not Given Metoprolol Tartrate (Lopressor -) 75 mg GT BID [facility] Last Admin: 12/03/18 10:42 Dose: Not Given Metoprolol Tartrate (Lopressor Injection -) 5 mg IVPUSH Q4H PRN PRN Reason: TACHYCARDIA Pantoprazole Sodium (Protonix Iv) 40 mg IVPUSH DAILY [facility] Last Admin: 12/03/18 10:41 Dose: Not Given - Objective Vital Signs: Vital Signs Temperature 99.3 F 12/03/18 10:00 Pulse Rate 84 12/03/18 10:00 Respiratory Rate 26 H 12/03/18 11:54 Blood Pressure 97/46 L 12/03/18 10:00 O2 Sat by Pulse Oximetry (%) 99 12/02/18 21:00 Constitutional: Yes: Calm Eyes: Yes: Conjunctiva Clear Neck: Yes: Other (trache) Cardiovascular: Yes: S1, S2 Respiratory: Yes: Intubated, Mechanically Ventilated Gastrointestinal: Yes: Soft, Other (peg) Musculoskeletal: Yes: Muscle Weakness Edema: Yes Edema: LUE: Trace, RUE: Trace Neurological: Yes: Confusion Labs: CBC, BMP 12/02/18 06:35 12/02/18 06:35 INR, PTT INR 1.61 (0.83-1.09) H 12/01/18 06:58 Fibrinogen 415.0 mg/dL (238-498) 11/21/18 14:20 Problem List - Problems (1) [place] (acute kidney injury) Code(s): N17.9 - ACUTE KIDNEY FAILURE, UNSPECIFIED (2) Atrial fibrillation with RVR Code(s): I48.91 - UNSPECIFIED ATRIAL FIBRILLATION (3) Ileus Code(s): K56.7 - ILEUS, UNSPECIFIED (4) Sepsis Code(s): A41.9 - SEPSIS, UNSPECIFIED ORGANISM Qualifiers: Sepsis type: sepsis due to unspecified organism Sepsis acute organ dysfunction status: with acute organ dysfunction Severe sepsis acute organ dysfunction type: acute renal failure Acute renal failure type: unspecified Severe sepsis shock status: without septic shock Qualified Code(s): A41.9 - Sepsis, unspecified organism; R65.20 - Severe sepsis without septic shock; N17.9 - Acute kidney failure, unspecified Assessment/Plan Impression: 1. [place] 2. sepsis 3. PNA 4. SBO 5. Parkinson's 6. a-fib 7. chronic resp failure 8. severe sepsis 9. lactic acidosis 10. copd 11. hx of htn 12. thrombocytopenia Plan - next HD tomorrow - pt has permacath - monitor urine output and monitor for renal recovery - epogen for anemia
--- NOTE | 2018-12-03 13:16 | PN ---
Teaching Attending Note Name of Resident: Renate Montilla ATTENDING PHYSICIAN STATEMENT I saw and evaluated the patient. I reviewed the resident's note and discussed the case with the resident. I agree with the resident's findings and plan as documented. SUBJECTIVE:resting comfortable OBJECTIVE: Last Vital Signs Temp Pulse Resp BP Pulse Ox 99.3 F 84 26 H 97/46 L 99 12/03/18 10:00 12/03/18 10:00 12/03/18 11:54 12/03/18 10:00 12/02/18 21:00 Intake & Output 11/30/18 12/01/18 12/02/18 12/03/18 23:59 23:59 23:59 23:59 Intake Total 137 661 8455 650 Output Total 623 52 5161 50 Balance 350 765 -75 600 General resting comfortable CV S1 s2 RRR lungs decreased breath sounds anteriorly. no wheezing abdomen soft +distended. NT. +tympanic +PEG Extremities 2+ pitting edema B/L UE no pitting edema B/L LE ASSESSMENT AND PLAN: 88 year old male with Parkinson's Disease, COPD, HTN, Atrial Fibrillation, CRF s /p Trach/PEG, presented with fevers/chills, abdominal pain/distension, found to have SBO and sepsis secondary to Pneumonia. 1. Acute on Chronic Respiratory Failure and Severe Sepsis secondary to Pneumonia. s/p trach. vent dependent. +pseudomonas. completed abx course. ID and pulmonary on board 2. [place] due to sepsis/ATN vs contrast induced nephropathy-s/p permacath placement 12/01. plan for HD today. nephro on board 3. Dark Urine-due to thrombocytopenia. now clear. urology consult. 4. SBO- appears have ileus due to chronic illness. will resume feeds after permacath placement. add reglan. GI on board. 5. Volume overload-cont HD as tolerated 6. anemia- likely combination of chronic disease. received 1 unit PRBC. trend 7. Elevated INR- unknown cause. vit K x3 given. HIT panel pending. holding heparin and eliquis. heme on board 8. Dilated CBD/Elevated LFT- possibly due to sepsis and shock liver. LFT improving. GI on board 9. Atrial fibrillation with RVR - resumed on Metoprolol (at increased dose of 75mg BID) and Amiodarone. Transitioned from Heparin drip to Eliquis (now held due to elevated INR and Thrombocytopenia). 10. hemorrhagic bullae- noted on hands are improving. derm consulted 11. Elevated troponin - sec to demand due to sepsis. TnI max 0.07. No further work-up currently. Can follow with cardiology as out-patient. 12. Parkinson's Disease - Continue Sinemet/Amantadine. 13. HTN - BP borderline. Resumed on Metoprolol. 14. Dysphagia s/p PEG 15, Thrombocytopenia- no signs of bleeding. Hematology on board 16. unstageable sacral ulcer 17. DVT Px - Eliquis held. SCD 18. DNR. poor prognosis. fem geni removed. transfer to [facility] today
--- NOTE | 2018-12-03 14:25 | PN ---
Progress Note, Physician History of Present Illness: pulmonary awake,on vent support ac mode,-resp distress - Current Medication List Current Medications: Active Medications Amantadine HCl (Symmetrel Oral Solution -) 100 mg GT BID [facility] Last Admin: 12/03/18 10:43 Dose: 100 mg Amiodarone HCl (Cordarone -) 200 mg GT DAILY [facility] Last Admin: 12/03/18 10:41 Dose: 200 mg Carbidopa/Levodopa (Sinemet 25/250 -) 2 each GT TID [facility] Last Admin: 12/03/18 06:54 Dose: 2 each Collagenase (Santyl -) 1 applic TP DAILY [facility]; Protocol Last Admin: 12/03/18 10:42 Dose: 1 applic Epoetin Martir (Epogen -) 7,000 unit IVPUSH ONCE ONE Stop: 12/04/18 12:30 Sodium Chloride (Normal Saline -) 250 mls @ 3,000 mls/hr IV PRN PRN PRN Reason: Hypotension during Dialysis Stop: 12/04/18 12:29 Latanoprost (Xalatan 0.005% Eye Drops -) 1 drop OU HS [facility] Last Admin: 12/02/18 22:55 Dose: 1 drop Metoclopramide HCl (Reglan Injection -) 5 mg IVPUSH BID [facility] Last Admin: 12/03/18 10:41 Dose: Not Given Metoprolol Tartrate (Lopressor -) 75 mg GT BID [facility] Last Admin: 12/03/18 10:42 Dose: Not Given Metoprolol Tartrate (Lopressor Injection -) 5 mg IVPUSH Q4H PRN PRN Reason: TACHYCARDIA Pantoprazole Sodium (Protonix Iv) 40 mg IVPUSH DAILY [facility] Last Admin: 12/03/18 10:41 Dose: Not Given - Objective Vital Signs: Vital Signs Temperature 99.3 F 12/03/18 10:00 Pulse Rate 84 12/03/18 10:00 Respiratory Rate 26 H 12/03/18 11:54 Blood Pressure 97/46 L 12/03/18 10:00 O2 Sat by Pulse Oximetry (%) 99 12/02/18 21:00 Constitutional: Yes: Well Nourished, Calm Eyes: Yes: WNL HENT: Yes: WNL Neck: Yes: Supple (trach) Cardiovascular: Yes: Pulse Irregular, S1, S2 Respiratory: Yes: Rhonchi (scattered franco rhonchi) Gastrointestinal: Yes: Normal Bowel Sounds, Soft Extremities: Yes: WNL Edema: Yes Labs: CBC, BMP Problem List - Problems (1) Atrial fibrillation with RVR Code(s): I48.91 - UNSPECIFIED ATRIAL FIBRILLATION (2) Chronic respiratory failure Code(s): J96.10 - CHRONIC RESPIRATORY FAILURE, UNSP W HYPOXIA OR HYPERCAPNIA (3) Sepsis Code(s): A41.9 - SEPSIS, UNSPECIFIED ORGANISM Qualifiers: Sepsis type: sepsis due to unspecified organism Sepsis acute organ dysfunction status: with acute organ dysfunction Severe sepsis acute organ dysfunction type: acute renal failure Acute renal failure type: unspecified Severe sepsis shock status: without septic shock Qualified Code(s): A41.9 - Sepsis, unspecified organism; R65.20 - Severe sepsis without septic shock; N17.9 - Acute kidney failure, unspecified (4) Parkinson disease Code(s): G20 - PARKINSON'S DISEASE (5) Pneumonitis Code(s): J18.9 - PNEUMONIA, UNSPECIFIED ORGANISM Assessment/Plan ASSESSMENT AND PLAN: Chronic Respiratory Failure Pneumonia Severe Sepsis Acute Kidney Injury Lactic Acidosis +Troponins likely Demand Ischemia Atrial Fibrillation COPD HTN Parkinsons Disease - HD as per renal - rate control - enteral feeds - DVT/GI prophylaxis - continue discussions regarding goals of care - d/c planing DR ARELLANO
[2018-12-03 14:31] VITALS: BP 94/42; PULSE 81; TEMP 96.5
[2018-12-04] MEDS ORDERED: EPOETIN ALFA 2,000 UNIT/1 ML VIAL IVPUSH ONE (12:29)
== END 2018-12-03 18:20 | disposition short-term general hospital (02) | DRG 870 ==
LOC: JER 13:59 → JERBED 14:36 → JICU 11-06 00:57 → J5S 11-14 23:16
PROVIDERS: ADMIT Internal Medicine; ATTEND Internal Medicine
PROC: 06HN33Z Insertion of Infusion Device into Left Femoral Vein, Percutaneous Approach (ICD-10-PCS; principal; 2018-11-05)
PROC: B51CZZA Fluoroscopy of Left Lower Extremity Veins, Guidance (ICD-10-PCS; 2018-11-05)
PROC: 30233N1 Transfusion of Nonautologous Red Blood Cells into Peripheral Vein, Percutaneous Approach (ICD-10-PCS; 2018-11-05)
PROC: 5A1D70Z Performance of Urinary Filtration, Intermittent, Less than 6 Hours Per Day (ICD-10-PCS; 2018-11-19)
PROC: 5A1D70Z Performance of Urinary Filtration, Intermittent, Less than 6 Hours Per Day (ICD-10-PCS; 2018-11-20)
PROC: 30233K1 Transfusion of Nonautologous Frozen Plasma into Peripheral Vein, Percutaneous Approach (ICD-10-PCS; 2018-11-20)
PROC: 5A1955Z Respiratory Ventilation, Greater than 96 Consecutive Hours (ICD-10-PCS; 2018-11-22)
PROC: 5A1D70Z Performance of Urinary Filtration, Intermittent, Less than 6 Hours Per Day (ICD-10-PCS; 2018-11-22)
PROC: 5A1D70Z Performance of Urinary Filtration, Intermittent, Less than 6 Hours Per Day (ICD-10-PCS; 2018-11-24)
PROC: 5A1D70Z Performance of Urinary Filtration, Intermittent, Less than 6 Hours Per Day (ICD-10-PCS; 2018-11-26)
PROC: 05HM33Z Insertion of Infusion Device into Right Internal Jugular Vein, Percutaneous Approach (ICD-10-PCS; 2018-12-01)
PROC: B513ZZA Fluoroscopy of Right Jugular Veins, Guidance (ICD-10-PCS; 2018-12-01)
DX: A41.52 Sepsis due to Pseudomonas (principal); L89.224 Pressure ulcer of left hip, stage 4; N17.0 Acute kidney failure with tubular necrosis; J18.1 Lobar pneumonia, unspecified organism; G93.41 Metabolic encephalopathy; J96.01 Acute respiratory failure with hypoxia; D65 Disseminated intravascular coagulation [defibrination syndrome]; K72.00 Acute and subacute hepatic failure without coma; N39.0 Urinary tract infection, site not specified; K56.699 Other intestinal obstruction unspecified as to partial versus complete obstruction; J90 Pleural effusion, not elsewhere classified; K56.7 Ileus, unspecified; J96.10 Chronic respiratory failure, unspecified whether with hypoxia or hypercapnia; E87.2 Acidosis; I24.8 Other forms of acute ischemic heart disease; R65.20 Severe sepsis without septic shock; E16.2 Hypoglycemia, unspecified; K83.8 Other specified diseases of biliary tract; I48.91 Unspecified atrial fibrillation; E86.0 Dehydration; J44.9 Chronic obstructive pulmonary disease, unspecified; D63.8 Anemia in other chronic diseases classified elsewhere; K21.9 Gastro-esophageal reflux disease without esophagitis; G20 Parkinson's disease; I11.0 Hypertensive heart disease with heart failure; R23.8 Other skin changes; I50.89 Other heart failure; I08.2 Rheumatic disorders of both aortic and tricuspid valves; R58 Hemorrhage, not elsewhere classified; R00.0 Tachycardia, unspecified; R94.5 Abnormal results of liver function studies; D69.6 Thrombocytopenia, unspecified; R13.10 Dysphagia, unspecified; Z85.46 Personal history of malignant neoplasm of prostate; Z93.1 Gastrostomy status; Z93.0 Tracheostomy status; Z22.322 Carrier or suspected carrier of Methicillin resistant Staphylococcus aureus; Z66 Do not resuscitate
CPT/HCPCS: 36415; 36430; 36511; 36600; 71045-TC-FY; 74018-TC-FY; 74176-TC; 74177-TC; 74190-TC-FY; 76000-TC-FY; 76705-TC; 76775-TC; 76856-TC; 80048; 80053; 80076; 81003; 81241; 82248; 82272; 82375; 82542; 82550; 82565; 82803; 82962; 83010; 83050; 83516; 83520; 83605; 83615; 83735; 83874; 83880; 84100; 84153; 84155; 84165; 84300; 84484; 85025; 85027; 85220; 85230; 85240; 85260; 85291; 85379; 85384; 85610; 85613; 85730; 85732; 86022; 86038; 86225; 86256; 86704; 86706; 86707; 86708; 86709; 86803; 86850; 86900; 86901; 86922; 87040; 87070; 87077; 87086; 87184; 87186; 87205; 87324; 87340; 87449; 87522; 87899; 90670; 93005; 93010; 93306-TC; 94002; 94640; 94760; 99285-25; G0480; J0131; J0885; J1644; J7030; P9017; P9038; P9047; P9058; Q9967